=== PATIENT | male | born 1935 | race Caucasian/White ===

== ENCOUNTER 2018-09-24 17:15 | Inpatient (IN) | payer OTHER ==
--- NOTE | 2018-09-24 18:57 | RAD ---
HISTORY: SOB, cough COMPARISON: None available TECHNIQUE: Chest, one view. FINDINGS: LUNGS: Consolidation consistent with pneumonia involving the right middle and lower lobes. Patchy infiltrate left lung base. Hyperinflation may be seen in the setting of COPD. Increased lucencies especially within the bilateral upper lung ross compatible with underlying emphysema. PLEURA: No significant pleural effusion identified. No definite pneumothorax . CARDIOVASCULAR: Cardiomegaly. Dense atherosclerotic calcifications. OSSEOUS STRUCTURES: Degenerative changes. VISUALIZED UPPER ABDOMEN: Elevation of the right hemidiaphragm. OTHER FINDINGS: None. IMPRESSION: Consolidation consistent with pneumonia involving the right middle and lower lobes. Patchy infiltrate left lung base. COPD/emphysema. Elevation of the right hemidiaphragm.
[2018-09-24 18:59] LABS: BASO % 0.3 % (0.0-2.0); EOS % 0.2 % (0.0-4.0); LYMPH # 0.7 K/uL (1.0-4.3); LYMPH % 7.6 % (20.0-40.0); MEAN CELL VOLUME 86.3 fL (80.0-94.0); MEAN CORPUSCULAR HEMOGLOBIN 27.4 pg (27.0-31.0); MEAN CORPUSCULAR HGB CONC 31.7 g/dL (33.0-37.0); MEAN PLATELET VOLUME 7.4 fL (7.2-11.7); MONO # 0.9 K/uL (0.0-0.8); MONO % 9.9 % (0.0-10.0); NEUT # 7.2 K/uL (1.8-7.0); PLATELET COUNT 248 K/uL (130-400); RBC 4.76 Mil/uL (4.40-5.90); RED CELL DISTRIBUTION WIDTH 19.4 % (11.5-14.5); WHITE BLOOD COUNT 8.8 K/uL (4.8-10.8)
[2018-09-24 19:06] LABS: INR 0.9
[2018-09-24 19:11] LABS: ALB/GLOB RATIO 0.9 (1.0-2.1); ALBUMIN 3.4 g/dL (3.5-5.0); ALT/SGPT 16 U/L (21-72); AST/SGOT 24 U/L (17-59); BLOOD UREA NITROGEN 31 mg/dL (9-20); CALCIUM 8.9 mg/dl (8.6-10.4); GFR NON-AFRICAN AMERICAN > 60
[2018-09-24 19:36] LABS: B-TYPE NATRIURETIC PEPTIDE 675 pg/mL (0-900); CK-MB 1.46 ng/mL (0.0-3.38)
[2018-09-24] MEDS ORDERED: Sodium Chloride 0.9% 500 ML IV ONE (19:42)
--- NOTE | 2018-09-24 20:03 | C.PDOC ---
History Of Present Illness 83 y/o male brought to ER by ambulance for evaluation of generalized weakness. History is as per neighbor and EMS - patient was found to be weak and having difficulty ambulating near [facility]. Bystanders called for the ambulance and he was brought to [facility] ER. As per neighbor, patient is complaining of generalized weakness/difficulty ambulating which has been present for the past 3 days. Patient typically walks with a cane, but he currently has been using a walker. Patient also states he has decreased PO intake, and thinks he may be dehydrated. Patient denies chest pain, SOB, facial droop, slurred speech, visual changes, nausea, vomiting, abdominal pain, dizziness. Time Seen by Provider: 09/24/18 17:22 Chief Complaint (Nursing): Weakness/Neurological Deficit History Per: Patient, Family (neighbor) History/Exam Limitations: no limitations Onset/Duration Of Symptoms: Days Current Symptoms Are (Timing): Still Present Past Medical History Reviewed: Historical Data, Nursing Documentation, Vital Signs Vital Signs: Last Vital Signs Temp 99 F 09/24/18 17:18 Pulse 79 09/24/18 17:18 Resp 21 09/24/18 17:18 BP 132/59 L 09/24/18 17:18 Pulse Ox 93 L 09/24/18 17:18 - Medical History PMH: No Chronic Diseases Surgical History: Cholecystectomy Family History: States: No Known Family Hx - Social History Hx Alcohol Use: No Hx Substance Use: No - Immunization History Hx Tetanus Toxoid Vaccination: No Hx Influenza Vaccination: No Hx Pneumococcal Vaccination: No Review Of Systems Except As Marked, All Systems Reviewed And Found Negative. Constitutional: Positive for: Weakness. Negative for: Fever, Chills Cardiovascular: Negative for: Chest Pain Respiratory: Negative for: Shortness of Breath Gastrointestinal: Negative for: Nausea, Vomiting, Abdominal Pain Physical Exam - Physical Exam Appears: Chronically Ill, Other (unkempt) Skin: Normal Color, Warm, Dry Head: Atraumatic, Normacephalic Eye(s): bilateral: Normal Inspection Nose: Normal Oral Mucosa: Dry Neck: Supple Chest: Symmetrical Cardiovascular: Rhythm Regular, Murmur (3/6 systolic murmur) Respiratory: Normal Breath Sounds, No Rales, No Rhonchi, No Wheezing Gastrointestinal/Abdominal: Soft, No Tenderness, No Guarding, No Rebound Extremity: Normal ROM Neurological/Psych: Oriented x3, Normal Speech, Normal Cranial Nerves, Normal Motor, Normal Sensation ED Course And Treatment - Laboratory Results Result Diagrams: 09/30/18 07:25 09/30/18 07:25 ECG: Interpreted By Me, Viewed By Me ECG Rhythm: Sinus Rhythm ECG Interpretation: Abnormal Interpretation Of ECG: NSR with normal axis, mild ST depression in Leads II, III, and AVF, and no ST elevations Rate From EC (bpm) O2 Sat by Pulse Oximetry: 93 Pulse Ox Interpretation: Abnormal - CT Scan/US CT-Head Other Rad Studies (CT/US): Read By Radiologist, Radiology Report Reviewed CT/US Interpretation: EXAM: CT Head without Intravenous Contrast. CLINICAL H ISTORY: DIFFICULTY WALKING. TECHNIQUE: Axial computed tomography images of the head/brain without intravenous contrast. 0.00 mGy-cm. COMPARISON: None provided. FINDINGS: BRAIN. There is mild brain atrophy. There is grade ventricular white matter ischemic change. Areas of low-density infarction are seen at the left frontal region, superior left parietal region, and left parieto-occipital region and these are likely chronic in nature. There is some compensatory dilatation of the ventricular system. There is no acute hemorrhage. VENTRICLES: No hydrocephalus. ORBITS: The orbits are unremarkable. SINUSES AND MASTOIDS: The paranasal sinuses and mastoid air cells are clear. BONES: No fracture. SOFT TISSUES: Unremarkable. IMPRESSION: Periventricular white matter ischemic changes. Areas of infarction suspected at the left frontal region, deep and superior left parietal region and left parieto-occipital region. Clinical correlation advised. Progress Note: Blood work, EKG, CT head, CXR ordered and reviewed. Patient given IV NS bolus, PO ASA. CT head shows left sided infarct - symptoms present for 3 days. PO tylenol given. Patient's neighbor Frandy called and results explained, he will translate for patient's and inform her of CVA. - Physician Consult Information Physician Contacted: Brian Norris Outcome Of Conversation: Discussed patient with PMD, he agrees with admission for left sided CVA, abnormal EKG, elevated troponin, ataxia. NIHSS Stroke Scale 2 - Date/Time Evaluation Performed Date Performed: 09/24/18 Time Performed: 17:20 When Was NIHSS Performed: Baseline - How Severe is the Stroke Level of Consciousness: 0=Alert LOC to Questions: 0=Both comments correct LOC to commands: 0=Obeys both correctly Best Gaze: 0=Normal Visual: 0=No visual loss Facial: 0=Normal Motor Arm - Left: 0=No drift Motor Arm - Right: 0=No drift Motor Leg - Left: 0=No drift Motor Leg - Right: 0=No drift Limb Ataxia: 1=Present Upper or Lower Sensory: 0=Normal Best Language: 0=No aphasia Dysarthia: 0=Normal articulation Extinction & Inattention (Neglect): 0=Normal, no object Score: 1 rTPA Inclusion/Exclusion - Refusal of Treatment Patient Refused Treatment: No - Inclusion Criteria for Altepase Patient is 18 years or Older: Yes The Clinical Diagnosis of Ischemic Stroke That is Causing a Potentially Disabling Neurological Deficit: Yes Time of Onset is Well Established to be Less Than 270 Minute Before Treatment Would Begin: No Risk/Benefit Discussed With Patient/Family Member Present: No Disposition - Disposition Disposition: HOSPITALIZED Disposition Time: 21:13 Condition: FAIR - Clinical Impression Clinical Impression: Elevated troponin, CVA (cerebral vascular accident), Abnormal EKG, Ataxia - Scribe Statement The provider has reviewed the documentation as recorded by the Sahil Simmons Provider Attestation: All medical record entries made by the Darvine were at my direction and personally dictated by me. I have reviewed the chart and agree that the record accurately reflects my personal performance of the history, physical exam, medical decision making, and the department course for this patient. I have also personally directed, reviewed, and agree with the discharge instructions and disposition. Decision To Admit - Pt Status Changed To: Hospital Disposition Of: Inpatient - Admit Certification Admit to Inpatient:: After my assessment, the patient will require hospitalization for at least two midnights. This is because of the severity of symptoms shown, intensity of services needed, and/or the medical risk in this patient being treated as an outpatient. - InPatient: Physician Admission Certification: I certify that this patient requires 2 or more midnights of care for the following reason:: see notes - . Bed Request Type: Telemetry Admitting Physician: Brian Norris Patient Diagnosis: Elevated troponin, Abnormal EKG, CVA (cerebral vascular accident), Ataxia
--- NOTE | 2018-09-24 20:04 | C.PDOC ---
Time Seen by Provider: 09/24/18 17:22 Chief Complaint (Nursing): Weakness/Neurological Deficit Past Medical History Vital Signs: Last Vital Signs Temp 99 F 09/24/18 17:18 Pulse 79 09/24/18 17:18 Resp 21 09/24/18 17:18 BP 132/59 L 09/24/18 17:18 Pulse Ox 93 L 09/24/18 17:18 Surgical History: Cholecystectomy - Social History Hx Alcohol Use: No Hx Substance Use: No - Immunization History Hx Tetanus Toxoid Vaccination: No Hx Influenza Vaccination: No Hx Pneumococcal Vaccination: No ED Course And Treatment - Laboratory Results Result Diagrams: 09/24/18 18:55 09/24/18 18:55 O2 Sat by Pulse Oximetry: 93 Disposition - Disposition
[2018-09-24 21:19] LABS: ANISOCYTOSIS SLIGHT; LYMPHOCYTE 10 % (20-40); MONOCYTE 9 % (0-10); NEUTROPHIL 81 % (50-75); PLATELET ESTIMATE NORMAL (NORMAL); TOTAL CELLS COUNTED 100
[2018-09-24 21:20] LABS: POIKILOCYTOSIS SLIGHT
--- NOTE | 2018-09-25 08:43 | CT ---
Date of service: 09/24/2018 PROCEDURE: CT HEAD WITHOUT CONTRAST. HISTORY: DIFFICULTY WALKING COMPARISON: None available. TECHNIQUE: Axial computed tomography images were obtained through the head/brain without intravenous contrast. Radiation dose: Total exam DLP = 1007.05 mGy-cm. This CT exam was performed using one or more of the following dose reduction techniques: Automated exposure control, adjustment of the mA and/or kV according to patient size, and/or use of iterative reconstruction technique. FINDINGS: HEMORRHAGE: No intracranial hemorrhage. BRAIN: No mass effect or edema. Mild diffuse age-appropriate cerebral atrophy. Multifocal encephalomalacia involving left frontal, left occipital parietal and high left frontal lobes, likely old infarcts. Solitary coarse nodular cortical calcifications seen in the right frontal lobe. Nonspecific. No evidence of acute infarct. Moderate periventricular white matter lucency consistent with chronic microvascular ischemic change. VENTRICLES: Unremarkable. No hydrocephalus. CALVARIUM: Unremarkable. PARANASAL SINUSES: Unremarkable as visualized. No significant inflammatory changes. MASTOID AIR CELLS: Unremarkable as visualized. No inflammatory changes. OTHER FINDINGS: None. 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 No evidence of acute infarct. No intracranial mass or hemorrhage. Age-appropriate atrophy and chronic white matter ischemic change. The preliminary findings for this examination were reported by [facility] at 7:55 p.m. on 09/24/2018. There is concurrence of this report with the preliminary findings.
--- NOTE | 2018-09-25 09:50 | CP.PCM.HP ---
<Alirio Dunbar - Last Filed: 09/25/18 09:47> History of Present Illness - History of Present Illness History of Present Illness: CC: found by police wandering outside Dialysis Clinical Manager: Mariana This patient is an 83yo telugu speaking patient, extremely poor historian, BIBA at 7pm as he was wandering outside of the police station in [place]. He states that he is in "optimal health" and takes absolutely no medicines. His pharmacy is listed as [facility] pharmacy [phone]. the patient is ANOx1 only knowing his name and ; he knows he is in [place] but does not know the name of the hospital, year, or his address or how he got to the hospital. He is currently denying all symptoms at time of exam. PMhx: bradycardia, dementia (recently diagnosed) glaucoma, [place] [facility] [place]; tx and sent to Meds: unknown, will call pharmacy once opens [phone] as per son/detention worker [phone] Donepezil (started recently) Finasteride (for BPH) FamHx: denies Allergies: Denies; has had MRI before at [facility] [place] Surgeries: Denies; however speaking to son had gallbladder removal, hernia repair, stomach reduction Social: Denies smoking/Etoh (however poor historian), although listed as former smoker in triage, states he is ambulatory on own without cane or assistance; speaking to son states he has been much more confused recently, notable to take care of self alone and refuses a lot of care Present on Admission - Present on Admission Any Indicators Present on Admission: Yes History of DVT/PE: No History of Uncontrolled Diabetes: No Urinary Catheter: No Decubitus Ulcer Present: No Past Patient History - Past Medical History & Family History Past Medical History?: No - Past Social History Smoking Status: Unknown If Ever Smoked - CARDIAC Other/Comment: High Triglyceride - MUSCULOSKELETAL/RHEUMATOLOGICAL Hx Falls: Yes - GENITOURINARY/GYNECOLOGICAL Hx Prostate Problems: Yes - PSYCHIATRIC Hx Substance Use: No - SURGICAL HISTORY Hx Cholecystectomy: Yes - ANESTHESIA Hx Anesthesia: Yes Hx Anesthesia Reactions: No Meds Allergies/Adverse Reactions: Allergies Allergy/AdvReac Type Severity Reaction Status Date / Time No Known Allergies Allergy Verified 09/24/18 18:23 Physical Exam - Constitutional Appears: Non-toxic, Cachectic, Chronically Ill - Head Exam Head Exam: ATRAUMATIC - Eye Exam Eye Exam: EOMI, PERRL (patient does not withdraw on confrontatation ) Pupil Exam: absent: PERRL (b/l cataract repair ) - ENT Exam ENT Exam: Mucous Membranes Dry - Neck Exam Neck exam: Positive for: Full Rom. Negative for: Lymphadenopathy, Thyromegaly - Respiratory Exam Respiratory Exam: Clear to Auscultation Bilateral, NORMAL BREATHING PATTERN. absent: Rales, Rhonchi, Wheezes - Cardiovascular Exam Cardiovascular Exam: REGULAR RHYTHM, +S1, +S2 (systolic murmur 4/6 heard in all listening areas loudest at pulmonic area ), Systolic Murmur - GI/Abdominal Exam GI & Abdominal Exam: Normal Bowel Sounds, Soft. absent: Tenderness - Extremities Exam Extremities exam: Positive for: full ROM. Negative for: calf tenderness, pedal edema - Back Exam Back exam: NORMAL INSPECTION (ANOx1; only to person). absent: CVA tenderness (L), CVA tenderness (R) - Neurological Exam Neurological exam: CN II-XII Intact - Psychiatric Exam Additional comments: unable to gauge - Skin Skin Exam: Dry, Warm Results - Vital Signs Recent Vital Signs: Last Vital Signs Temp 97.7 F 09/25/18 08:18 Pulse 52 L 09/25/18 08:18 Resp 18 09/25/18 08:18 BP 115/63 09/25/18 08:18 Pulse Ox 100 09/25/18 08:18 - Labs Result Diagrams: 09/24/18 18:55 09/24/18 18:55 Labs: Laboratory Results - last 24 hr 09/24/18 09/24/18 09/24/18 17:29 18:55 18:55 WBC 8.8 RBC 4.76 Hgb 13.0 Hct 41.1 MCV 86.3 MCH 27.4 MCHC 31.7 L RDW 19.4 H Plt Count 248 MPV 7.4 Neut % (Auto) 82.0 H Lymph % (Auto) 7.6 L [place] % (Auto) 9.9 Eos % (Auto) 0.2 Baso % (Auto) 0.3 Neut # (Auto) 7.2 H Lymph # (Auto) 0.7 L [place] # (Auto) 0.9 H Eos # (Auto) 0.0 Baso # (Auto) 0.0 Neutrophils % (Manual) 81 H Lymphocytes % (Manual) 10 L Monocytes % (Manual) 9 Platelet Estimate Normal Poikilocytosis (manual Slight Anisocytosis (manual) Slight PT 10.0 INR 0.9 APTT 28 Sodium Potassium Chloride Carbon Dioxide Anion Gap BUN Creatinine Est GFR ( Amer) Est GFR (Non-Af Amer) POC Glucose (mg/dL) 144 H Random Glucose Calcium Total Bilirubin AST ALT Alkaline Phosphatase Total Creatine Kinase CK-MB (Mass) Troponin I NT-Pro-B Natriuret Pep Total Protein Albumin Globulin Albumin/Globulin Ratio 09/24/18 18:55 WBC RBC Hgb Hct MCV MCH MCHC RDW Plt Count MPV Neut % (Auto) Lymph % (Auto) [place] % (Auto) Eos % (Auto) Baso % (Auto) Neut # (Auto) Lymph # (Auto) [place] # (Auto) Eos # (Auto) Baso # (Auto) Neutrophils % (Manual) Lymphocytes % (Manual) Monocytes % (Manual) Platelet Estimate Poikilocytosis (manual Anisocytosis (manual) PT INR APTT Sodium 140 Potassium 3.9 Chloride 101 Carbon Dioxide 29 Anion Gap 13 BUN 31 H Creatinine 1.0 Est GFR ( Amer) > 60 Est GFR (Non-Af Amer) > 60 POC Glucose (mg/dL) Random Glucose 86 Calcium 8.9 Total Bilirubin 1.0 AST 24 ALT 16 L Alkaline Phosphatase 107 Total Creatine Kinase 31 L CK-MB (Mass) 1.46 Troponin I 0.1230 H* NT-Pro-B Natriuret Pep 675 Total Protein 7.0 Albumin 3.4 L Globulin 3.6 Albumin/Globulin Ratio 0.9 L Assessment & Plan - Assessment and Plan (Free Text) Assessment: 83yo M admitted for AMS Encephalopathy; unknown origin stroke vs infection vs metabolic -head CT showed multiple old infarcts; no acute infarct seen; please refer to full report -f/u MRI 09/25 -Neurology; Dr. Manrique; thank you for your help -neuro checks -[facility] 1 on admission; -f/u TSH, blood cultures, procal, UA/Cul, hemoglobin a1c (patient was recently treated for bacteremia) [place] [facility] [place]neuro checks q4h -head of bed elevated -aspiration precautions -f/u swallow eval formal -therapeutic lovenox 40mg SC BID NSTEMI -nonspecific t-wave abnormality -murmur on exam; f/u echo -f/u bnp; no signs of clinical overload -elevated troponin; f/u repeat now and at 2pm -Dr. Lynch; cardiology; thank you for your help Hx of Dementia -donepizil 5mg daily -refused prior MRI and neuroworkup that was within 3mo Hx of BPH -c/w finasteride Hx of bacteremia; [place] [facility] [place] -Vanc 1g Q24h prophylactically -Zosyn 3.375 Q6H proph -f/u blood culture -WBC elevated; no other symptoms -UA Hyperglycemia -f/u hemoglobin a1c Proph -Lovenox therapeutic 40mg SC BID -GI prophylaxis not indicated as is eating -hx of falls; fall precautions -PT/OT eval discussed and seen with Dr. Jennifer Dunbar PGY3 Decision To Admit - Pt Status Changed To: Hospital Disposition Of: Inpatient - Admit Certification Admit to Inpatient:: After my assessment, the patient will require hospitalization for at least two midnights. This is because of the severity of symptoms shown, intensity of services needed, and/or the medical risk in this patient being treated as an outpatient. - InPatient: Physician Admission Certification:: patient will need more than 2 midnights - . Bed Request Type: Telemetry Admitting Physician: Renetta Rodriguez NIHSS Scale ([place]) Time Performed: 10:03 - How Severe is the Stoke Baseline Level of Consciousness: 0=Alert LOC to Questions: 0=Both comments correct LOC to commands: 0=Obeys both correctly Best Gaze: 0=Normal Visual: 1=Partial hemianopia (patient also has glaucoma with vision loss at baseline) Facial: 0=Normal Motor Arm - Left: 0=No drift Motor Arm - Right: 0=No drift Motor Leg - Left: 0=No drift Motor Leg - Right: 0=No drift Limb Ataxia: 0=Absent Sensory: 0=Normal Best Language: 0=No aphasia Dysarthia: 0=Normal articulation Extinction & Inattention (Neglect): 0=Normal, no object Score: 1 Risk Level: Minor Stroke Risk <Renetta Rodriguez V - Last Filed: 09/25/18 22:49> Results - Vital Signs Recent Vital Signs: Last Vital Signs Temp 97.7 F 09/25/18 08:18 Pulse 79 12/22/18 16:48 Resp 18 09/25/18 08:18 BP 115/63 09/25/18 08:18 Pulse Ox 100 09/25/18 08:18 - Labs Result Diagrams: 09/25/18 10:21 09/25/18 09:52 Labs: Laboratory Results - last 24 hr 09/24/18 09/24/18 09/24/18 18:55 18:55 18:55 WBC 8.8 RBC 4.76 Hgb 13.0 Hct 41.1 MCV 86.3 MCH 27.4 MCHC 31.7 L RDW 19.4 H Plt Count 248 MPV 7.4 Neut % (Auto) 82.0 H Lymph % (Auto) 7.6 L [place] % (Auto) 9.9 Eos % (Auto) 0.2 Baso % (Auto) 0.3 Neut # (Auto) 7.2 H Lymph # (Auto) 0.7 L [place] # (Auto) 0.9 H Eos # (Auto) 0.0 Baso # (Auto) 0.0 Neutrophils % (Manual) 81 H Lymphocytes % (Manual) 10 L Monocytes % (Manual) 9 Platelet Estimate Normal Poikilocytosis (manual Slight Anisocytosis (manual) Slight PT 10.0 INR 0.9 APTT 28 Sodium 140 Potassium 3.9 Chloride 101 Carbon Dioxide 29 Anion Gap 13 BUN 31 H Creatinine 1.0 Est GFR ( Amer) > 60 Est GFR (Non-Af Amer) > 60 Random Glucose 86 Calcium 8.9 Phosphorus Magnesium Total Bilirubin 1.0 AST 24 ALT 16 L Alkaline Phosphatase 107 Total Creatine Kinase 31 L CK-MB (Mass) 1.46 Troponin I 0.1230 H* NT-Pro-B Natriuret Pep 675 Total Protein 7.0 Albumin 3.4 L Globulin 3.6 Albumin/Globulin Ratio 0.9 L Triglycerides Cholesterol LDL Cholesterol Direct HDL Cholesterol Procalcitonin 09/25/18 09/25/18 09/25/18 09:52 10:21 10:21 WBC 6.7 RBC 4.28 L Hgb 11.9 L Hct 36.9 MCV 86.3 MCH 27.8 MCHC 32.2 L RDW 18.7 H Plt Count 219 MPV 7.7 Neut % (Auto) 76.0 H Lymph % (Auto) 12.6 L [place] % (Auto) 8.9 Eos % (Auto) 1.9 Baso % (Auto) 0.6 Neut # (Auto) 5.1 Lymph # (Auto) 0.8 L [place] # (Auto) 0.6 Eos # (Auto) 0.1 Baso # (Auto) 0.0 Neutrophils % (Manual) Lymphocytes % (Manual) Monocytes % (Manual) Platelet Estimate Poikilocytosis (manual Anisocytosis (manual) PT INR APTT Sodium 138 Potassium 3.8 Chloride 104 Carbon Dioxide 30 Anion Gap 9 L BUN 31 H Creatinine 1.0 Est GFR ( Amer) > 60 Est GFR (Non-Af Amer) > 60 Random Glucose 91 Calcium 8.7 Phosphorus 3.4 Magnesium 2.0 Total Bilirubin 0.8 AST 32 ALT 19 L Alkaline Phosphatase 99 Total Creatine Kinase < 20 L CK-MB (Mass) 0.94 Troponin I 0.1230 H* NT-Pro-B Natriuret Pep 503 Total Protein 6.7 Albumin 3.2 L Globulin 3.5 Albumin/Globulin Ratio 0.9 L Triglycerides 89 Cholesterol 168 LDL Cholesterol Direct 102 HDL Cholesterol 46 Procalcitonin 0.29 09/25/18 15:06 WBC RBC Hgb Hct MCV MCH MCHC RDW Plt Count MPV Neut % (Auto) Lymph % (Auto) [place] % (Auto) Eos % (Auto) Baso % (Auto) Neut # (Auto) Lymph # (Auto) [place] # (Auto) Eos # (Auto) Baso # (Auto) Neutrophils % (Manual) Lymphocytes % (Manual) Monocytes % (Manual) Platelet Estimate Poikilocytosis (manual Anisocytosis (manual) PT INR APTT Sodium Potassium Chloride Carbon Dioxide Anion Gap BUN Creatinine Est GFR ( Amer) Est GFR (Non-Af Amer) Random Glucose Calcium Phosphorus Magnesium Total Bilirubin AST ALT Alkaline Phosphatase Total Creatine Kinase < 20 L CK-MB (Mass) 0.97 Troponin I 0.0940 NT-Pro-B Natriuret Pep Total Protein Albumin Globulin Albumin/Globulin Ratio Triglycerides Cholesterol LDL Cholesterol Direct HDL Cholesterol Procalcitonin Attending/Attestation - Attestation I have personally seen and examined this patient.: Yes I have fully participated in the care of the patient.: Yes I have reviewed all pertinent clinical information: Yes Notes (Text): Hospitalist Service Covering Dr. Norris's service Patient admitted overnight to Dr. Norris's service. Patient admitted for suspicion for new stroke with NIHSS1, neurology consulted, in ED Aspirin 325mg PO X1 and 1 Liter of NS bolus. Patient seen this morning with the resident, telugu translation provided by Bri Supervisor Cytology. Patient is a poor historian, reports he is in good health. Further history provided by his son who is his caregiver, Patient recently [place] [facility] [place] for bacte[place], completed rehab recently. Patient sees a cardiology, Dr. Bucio but unclear why. I have attempted to call his office but it is not closed today. Review CT head, noted for multiple old infarcts and multifocal encephalmaclia. Reviewed Chest xray, noted pneumonia over the right lower lobe. Cardiology (Dr. lynch) is not call, confirmed with Dr. Lujan in updated scheduled; discussed case with Dr. Lujan, Dr. Benz is covering Dr. Lujan who is away this weekend. Patient has a history of dementia, takes donezpil as outpatient, refused neuro workup in the past for dementia. Assessment/Plan 1) Encephalopathy; unknown origin stroke vs infection vs metabolic Assessment/Plan * Neurology (Dr. Manrique) unified communications engineer-->help appreciated * CT head (09/25/18): showed multiple old infarcts; no acute infarct seen; please refer to full report * embolic etiology? * Brain MRI w/o contrast ordered * Echo with bubble ordered; patient does have a murmur on exam * Neuro checks Q4H * NIHHS 1 on admission * Aspiration precautions * Confirmed with nurse, patient has passed bedside swallow eval in the ED * Rule out infectious disease etiology, * Given recent bacteremia, f/u blood cultures, procalcition, noted left shift on CBC, and pneumonia on chest xray 2) NSTEMI vs Elevated troponin Assessment/Plan * Cardiology (Dr. Lujan) unified communications engineer-->help appreciated * Dr. Benz covering this week * nonspecific t-wave abnormality; no prior EKG available * murmur on exam; f/u ech * f/u bnp; no signs of clinical overload * Elevated troponin; f/u repeat now and at 2pm * Patient started on lovenox 1mg/kg subq12 * Check cardiac risk factors: lipid panel, hgba1c, probnp 3) Hx of Dementia Assessment/Plan * Donepizil 5mg daily 4) Hx of BPH Assessment/Plan * c/w finasteride 5mg PO daily 5) Prior Hx of bacteremia; treated [place] [facility] [place] Pneumonia Assessment/Plan * monitor for fever * Blood cultures (09/24/18): * Start Zosyn 3.375 IV q6H * Start Vancomycin 6) Hyperglycemia Assessment/Plan * check a1c 7) History of Falls Assessment/Plan * Activity: Falls * PT/OT eval 8) Prophylactic measure * Lovenox therapeutic 40mg SC BID * GI prophylaxis not indicated as is eating * hx of falls; fall precautions * PT/OT eval
[2018-09-25] MEDS ORDERED: Enoxaparin 40 mg Syringe SC SCH (10:15)
[2018-09-25 10:18] LABS: HDL CHOLESTEROL 46 mg/dL (30-70)
[2018-09-25 10:28] LABS: LDL CHOLESTEROL 102 mg/dL (0-129)
[2018-09-25 10:29] LABS: BASO % 0.6 % (0.0-2.0); EOS # 0.1 K/uL (0.0-0.7); EOS % 1.9 % (0.0-4.0); HEMOGLOBIN 11.9 g/dL (12.0-18.0); LYMPH # 0.8 K/uL (1.0-4.3); LYMPH % 12.6 % (20.0-40.0); MEAN CELL VOLUME 86.3 fL (80.0-94.0); MEAN CORPUSCULAR HEMOGLOBIN 27.8 pg (27.0-31.0); MEAN CORPUSCULAR HGB CONC 32.2 g/dL (33.0-37.0); MEAN PLATELET VOLUME 7.7 fL (7.2-11.7); MONO # 0.6 K/uL (0.0-0.8); MONO % 8.9 % (0.0-10.0); NEUT # 5.1 K/uL (1.8-7.0); NRBC % 0.1 % (0.0-2.0); RBC 4.28 Mil/uL (4.40-5.90); RED CELL DISTRIBUTION WIDTH 18.7 % (11.5-14.5); WHITE BLOOD COUNT 6.7 K/uL (4.8-10.8)
[2018-09-25 10:39] LABS: ALB/GLOB RATIO 0.9 (1.0-2.1); ALBUMIN 3.2 g/dL (3.5-5.0); ALT/SGPT 19 U/L (21-72); AST/SGOT 32 U/L (17-59); BLOOD UREA NITROGEN 31 mg/dL (9-20); CALCIUM 8.7 mg/dl (8.6-10.4); GFR NON-AFRICAN AMERICAN > 60
[2018-09-25 10:41] LABS: B-TYPE NATRIURETIC PEPTIDE 503 pg/mL (0-900)
[2018-09-25] MEDS: Saccharomyces Boulardi 250 mg Cap PO SCH ×2 (11:04→17:24)
[2018-09-25] MEDS: Piperacill/Tazo 3.375gm in Dex 3.375 GM/50 ML BAG IVPB SCH ×2 (11:18→17:23)
[2018-09-25] MEDS: Sodium Chloride 0.9% 1,000 ML IV SCH (11:19)
[2018-09-25 11:29] LABS: CK-MB 0.94 ng/mL (0.0-3.38)
[2018-09-25] MEDS: Vancomycin 1 gm/NS 200 ml 1 GM/200 ML BAG IVPB SCH (12:35)
--- NOTE | 2018-09-25 14:35 | MRI ---
Date of service: 09/25/2018 PROCEDURE: MRI BRAIN WITHOUT CONTRAST HISTORY: TIA/stroke COMPARISON: Comparison made with prior CT scan of the brain dated 09/24/2018. TECHNIQUE: Multiplanar, multisequence MR images of the brain were obtained without intravenous contrast enhancement. FINDINGS: HEMORRHAGE: No acute parenchymal, subarachnoid or extra-axial hemorrhage. No evidence of hemosiderin deposition is identified on gradient echo weighted sequence. DWI: There are 2 tiny focal areas of mild restricted diffusion, both of which are located in the posterior temporoparietal cortices left slightly larger and the slightly more anterior in location on the right side. Note that the both of these foci are adjacent to, abutting areas of larger chronic infarcts left larger than right... Both of these foci could represent small acute/subacute areas of reversible ischemia (TIAs) or tiny acute-subacute infarcts. Note that a small components of shine through artifact cannot be excluded. No additional focal areas of abnormal restricted diffusion identified. BRAIN PARENCHYMA: There are also confluent chronic white matter ischemic changes with more discrete bifrontal infarcts left larger than right.. There are also chronic bilateral cerebellar infarcts. Moderate to significant atrophy. VENTRICLES: No obstructive hydrocephalus. CRANIUM: Calvarium appears grossly ORBITS: Changes of bilateral cataract surgery again noted. PARANASAL SINUSES/MASTOIDS: Clear VASCULAR SYSTEM: Visualized major vascular flow voids at skull base patent.. OTHER FINDINGS: None. IMPRESSION: There are 2 tiny focal areas of mild restricted diffusion, both of which are located in the posterior temporoparietal cortices left slightly larger and the slightly more anterior in location on the right side. Note that the both of these foci are adjacent to, abutting areas of larger chronic infarcts left larger than right... Both of these foci could represent small acute/subacute areas of reversible ischemia (TIAs) or tiny acute/subacute infarcts. Note that a small components of shine through artifact cannot be excluded. No additional focal areas of abnormal restricted diffusion identified. Chronic confluent white matter ischemic changes with more discrete bifrontal infarcts left larger than right. There also chronic bilateral cerebellar infarcts.
[2018-09-25 15:38] LABS: CK-MB 0.97 ng/mL (0.0-3.38)
--- NOTE | 2018-09-25 16:39 | CP.PCM.CON ---
History of Present Illness - History of Present Illness History of Present Illness: 83 y/o male brought to ER by ambulance for evaluation of generalized weakness. History is as per neighbor and EMS - patient was found to be weak and having difficulty ambulating near [facility]. Bystanders called for the ambulance and he was brought to [facility] ER. As per neighbor, patient is complaining of generalized weakness/difficulty ambulating which has been present for the past 3 days. Patient typically walks with a cane, but he currently has been using a walker. Patient also states he has decreased PO intake, and thinks he may be dehydrated. Patient denies chest pain, SOB, facial droop, slurred speech, visual changes, nausea, vomiting, abdominal pain, dizziness. At the time of examination having lunch, denies any chest pain. Time Seen by Provider: 09/24/18 17:22 Past Patient History - Past Medical History & Family History Past Medical History?: No - Past Social History Smoking Status: Unknown If Ever Smoked - CARDIAC Other/Comment: High Triglyceride - MUSCULOSKELETAL/RHEUMATOLOGICAL Hx Falls: Yes - GENITOURINARY/GYNECOLOGICAL Hx Prostate Problems: Yes - PSYCHIATRIC Hx Substance Use: No - SURGICAL HISTORY Hx Cholecystectomy: Yes - ANESTHESIA Hx Anesthesia: Yes Hx Anesthesia Reactions: No Meds Allergies/Adverse Reactions: Allergies Allergy/AdvReac Type Severity Reaction Status Date / Time No Known Allergies Allergy Verified 09/24/18 18:23 - Medications Medications: Current Medications Aspirin (Aspirin Chewable) 81 mg PO DAILY [facility] Last Admin: 09/25/18 11:04 Dose: 81 mg Clopidogrel Bisulfate (Plavix) 75 mg PO DAILY [facility] Donepezil HCl (Aricept) 5 mg PO HS [facility] Enoxaparin Sodium (Lovenox) 40 mg SC Q12 [facility] Finasteride (Proscar) 5 mg PO DAILY [facility] Last Admin: 09/25/18 11:04 Dose: 5 mg Sodium Chloride (Sodium Chloride 0.9%) 1,000 mls @ 75 mls/hr IV .[id number] [facility] Last Admin: 09/25/18 11:19 Dose: 75 mls/hr Piperacillin Sod/Tazobactam Sod (Zosyn 3.375 Gm Iv Premix) 3.375 gm in 50 mls @ 200 mls/hr IVPB Q8H [facility]; Protocol Last Admin: 09/25/18 11:18 Dose: 200 mls/hr Vancomycin/Sodium Chloride (Vancomycin 1 Gm/Ns 200 Ml) 1 gm in 200 mls @ 167 mls/hr IVPB DAILY [facility]; Protocol Stop: 09/30/18 10:01 Last Admin: 09/25/18 12:35 Dose: 167 mls/hr Nicotine (Nicoderm Cq) 1 patch TD DAILY [facility] Last Admin: 09/25/18 11:03 Dose: 1 patch Saccharomyces Boulardii (Florastor) 250 mg PO BID [facility] Last Admin: 09/25/18 11:04 Dose: 250 mg Physical Exam - Head Exam Head Exam: NORMOCEPHALIC - Neck Exam Neck exam: Positive for: Normal Inspection - Respiratory Exam Respiratory Exam: NORMAL BREATHING PATTERN - Cardiovascular Exam Cardiovascular Exam: REGULAR RHYTHM, Systolic Murmur - Extremities Exam Extremities exam: Positive for: normal inspection Results - Vital Signs Recent Vital Signs: Last Vital Signs Temp 97.7 F 09/25/18 08:18 Pulse 52 L 09/25/18 08:18 Resp 18 09/25/18 08:18 BP 115/63 09/25/18 08:18 Pulse Ox 100 09/25/18 08:18 - Labs Result Diagrams: 09/26/18 08:09 09/26/18 08:09 Labs: Laboratory Results - last 24 hr 09/24/18 09/24/18 09/24/18 17:29 18:55 18:55 WBC 8.8 RBC 4.76 Hgb 13.0 Hct 41.1 MCV 86.3 MCH 27.4 MCHC 31.7 L RDW 19.4 H Plt Count 248 MPV 7.4 Neut % (Auto) 82.0 H Lymph % (Auto) 7.6 L [place] % (Auto) 9.9 Eos % (Auto) 0.2 Baso % (Auto) 0.3 Neut # (Auto) 7.2 H Lymph # (Auto) 0.7 L [place] # (Auto) 0.9 H Eos # (Auto) 0.0 Baso # (Auto) 0.0 Neutrophils % (Manual) 81 H Lymphocytes % (Manual) 10 L Monocytes % (Manual) 9 Platelet Estimate Normal Poikilocytosis (manual Slight Anisocytosis (manual) Slight PT 10.0 INR 0.9 APTT 28 Sodium Potassium Chloride Carbon Dioxide Anion Gap BUN Creatinine Est GFR ( Amer) Est GFR (Non-Af Amer) POC Glucose (mg/dL) 144 H Random Glucose Calcium Phosphorus Magnesium Total Bilirubin AST ALT Alkaline Phosphatase Total Creatine Kinase CK-MB (Mass) Troponin I NT-Pro-B Natriuret Pep Total Protein Albumin Globulin Albumin/Globulin Ratio Triglycerides Cholesterol LDL Cholesterol Direct HDL Cholesterol Procalcitonin 09/24/18 09/25/18 09/25/18 18:55 09:52 10:21 WBC RBC Hgb Hct MCV MCH MCHC RDW Plt Count MPV Neut % (Auto) Lymph % (Auto) [place] % (Auto) Eos % (Auto) Baso % (Auto) Neut # (Auto) Lymph # (Auto) [place] # (Auto) Eos # (Auto) Baso # (Auto) Neutrophils % (Manual) Lymphocytes % (Manual) Monocytes % (Manual) Platelet Estimate Poikilocytosis (manual Anisocytosis (manual) PT INR APTT Sodium 140 138 Potassium 3.9 3.8 Chloride 101 104 Carbon Dioxide 29 30 Anion Gap 13 9 L BUN 31 H 31 H Creatinine 1.0 1.0 Est GFR ( Amer) > 60 > 60 Est GFR (Non-Af Amer) > 60 > 60 POC Glucose (mg/dL) Random Glucose 86 91 Calcium 8.9 8.7 Phosphorus 3.4 Magnesium 2.0 Total Bilirubin 1.0 0.8 AST 24 32 ALT 16 L 19 L Alkaline Phosphatase 107 99 Total Creatine Kinase 31 L < 20 L CK-MB (Mass) 1.46 0.94 Troponin I 0.1230 H* 0.1230 H* NT-Pro-B Natriuret Pep 675 503 Total Protein 7.0 6.7 Albumin 3.4 L 3.2 L Globulin 3.6 3.5 Albumin/Globulin Ratio 0.9 L 0.9 L Triglycerides 89 Cholesterol 168 LDL Cholesterol Direct 102 HDL Cholesterol 46 Procalcitonin 0.29 09/25/18 09/25/18 10:21 15:06 WBC 6.7 RBC 4.28 L Hgb 11.9 L Hct 36.9 MCV 86.3 MCH 27.8 MCHC 32.2 L RDW 18.7 H Plt Count 219 MPV 7.7 Neut % (Auto) 76.0 H Lymph % (Auto) 12.6 L [place] % (Auto) 8.9 Eos % (Auto) 1.9 Baso % (Auto) 0.6 Neut # (Auto) 5.1 Lymph # (Auto) 0.8 L [place] # (Auto) 0.6 Eos # (Auto) 0.1 Baso # (Auto) 0.0 Neutrophils % (Manual) Lymphocytes % (Manual) Monocytes % (Manual) Platelet Estimate Poikilocytosis (manual Anisocytosis (manual) PT INR APTT Sodium Potassium Chloride Carbon Dioxide Anion Gap BUN Creatinine Est GFR ( Amer) Est GFR (Non-Af Amer) POC Glucose (mg/dL) Random Glucose Calcium Phosphorus Magnesium Total Bilirubin AST ALT Alkaline Phosphatase Total Creatine Kinase < 20 L CK-MB (Mass) 0.97 Troponin I 0.0940 NT-Pro-B Natriuret Pep Total Protein Albumin Globulin Albumin/Globulin Ratio Triglycerides Cholesterol LDL Cholesterol Direct HDL Cholesterol Procalcitonin Assessment & Plan (1) ACS (acute coronary syndrome) Assessment and Plan: Positive troponin, etiology ?. exam suggestive of Aortic stenosis. Obtain old record from Primary. Echocardiogram and Further management accordingly. Status: Acute (2) Ischemic stroke Assessment and Plan: Work-up in progress and further management according to neurology. Status: Acute
--- NOTE | 2018-09-25 18:25 | CP.PCM.CON ---
History of Present Illness - History of Present Illness History of Present Illness: Neurology Consultation Note: Mr. bennett is an 83-year-old man, who was referred to me by Dr. Rodriguez, with a past medical history of recently diagnosed dementia, who was found wandering outside the police station. He was brought in to the ED and was a poor historian. MRI of the brain was done and showed several small areas of rest ricted diffusion as well as chronic infarcts. These appeared to be distal and likely embolic. Neurology was consulted to assist with the management and care. Review of Systems - Review of Systems Systems not reviewed;Unavailable: Altered Mental Status Past Patient History - Past Medical History & Family History Past Medical History?: No - Past Social History Smoking Status: Unknown If Ever Smoked - CARDIAC Other/Comment: High Triglyceride - MUSCULOSKELETAL/RHEUMATOLOGICAL Hx Falls: Yes - GENITOURINARY/GYNECOLOGICAL Hx Prostate Problems: Yes - PSYCHIATRIC Hx Substance Use: No - SURGICAL HISTORY Hx Cholecystectomy: Yes - ANESTHESIA Hx Anesthesia: Yes Hx Anesthesia Reactions: No Meds Allergies/Adverse Reactions: Allergies Allergy/AdvReac Type Severity Reaction Status Date / Time No Known Allergies Allergy Verified 09/24/18 18:23 - Medications Medications: Current Medications Aspirin (Aspirin Chewable) 81 mg PO DAILY [facility] Last Admin: 09/25/18 11:04 Dose: 81 mg Clopidogrel Bisulfate (Plavix) 75 mg PO DAILY [facility] Donepezil HCl (Aricept) 5 mg PO HS [facility] Enoxaparin Sodium (Lovenox) 40 mg SC Q12 [facility] Finasteride (Proscar) 5 mg PO DAILY [facility] Last Admin: 09/25/18 11:04 Dose: 5 mg Sodium Chloride (Sodium Chloride 0.9%) 1,000 mls @ 75 mls/hr IV .[id number] [facility] Last Admin: 09/25/18 11:19 Dose: 75 mls/hr Piperacillin Sod/Tazobactam Sod (Zosyn 3.375 Gm Iv Premix) 3.375 gm in 50 mls @ 200 mls/hr IVPB Q8H [facility]; Protocol Last Admin: 09/25/18 17:23 Dose: 200 mls/hr Vancomycin/Sodium Chloride (Vancomycin 1 Gm/Ns 200 Ml) 1 gm in 200 mls @ 167 mls/hr IVPB DAILY [facility]; Protocol Stop: 09/30/18 10:01 Last Admin: 09/25/18 12:35 Dose: 167 mls/hr Nicotine (Nicoderm Cq) 1 patch TD DAILY [facility] Last Admin: 09/25/18 11:03 Dose: 1 patch Saccharomyces Boulardii (Florastor) 250 mg PO BID [facility] Last Admin: 09/25/18 17:24 Dose: 250 mg Physical Exam - Constitutional Appears: Well - Head Exam Head Exam: ATRAUMATIC, NORMAL INSPECTION, NORMOCEPHALIC - Eye Exam Eye Exam: EOMI, Normal appearance, PERRL Pupil Exam: NORMAL ACCOMODATION, PERRL - ENT Exam ENT Exam: Mucous Membranes Moist, Normal Exam - Neck Exam Neck exam: Positive for: Normal Inspection - Respiratory Exam Respiratory Exam: Clear to Auscultation Bilateral, NORMAL BREATHING PATTERN - Cardiovascular Exam Cardiovascular Exam: REGULAR RHYTHM, +S1, +S2 - GI/Abdominal Exam GI & Abdominal Exam: Normal Bowel Sounds, Soft. absent: Tenderness - Extremities Exam Extremities exam: Positive for: normal inspection - Back Exam Back exam: NORMAL INSPECTION - Neurological Exam Neurological exam: Alert, Altered, CN II-XII Intact, Normal Gait, Reflexes Normal Additional comments: NIHSS = 1 - Psychiatric Exam Psychiatric exam: Normal Affect, Normal Mood - Skin Skin Exam: Dry, Intact, Normal Color, Warm Results - Vital Signs Recent Vital Signs: Last Vital Signs Temp 98.0 F 09/25/18 15:00 Pulse 79 09/25/18 16:48 Resp 20 09/25/18 15:00 BP 112/64 09/25/18 15:00 Pulse Ox 98 09/25/18 15:00 - Labs Result Diagrams: 09/25/18 10:21 09/25/18 09:52 Labs: Laboratory Results - last 24 hr 09/24/18 09/24/18 09/24/18 18:55 18:55 18:55 WBC 8.8 RBC 4.76 Hgb 13.0 Hct 41.1 MCV 86.3 MCH 27.4 MCHC 31.7 L RDW 19.4 H Plt Count 248 MPV 7.4 Neut % (Auto) 82.0 H Lymph % (Auto) 7.6 L Mchenry % (Auto) 9.9 Eos % (Auto) 0.2 Baso % (Auto) 0.3 Neut # (Auto) 7.2 H Lymph # (Auto) 0.7 L Mchenry # (Auto) 0.9 H Eos # (Auto) 0.0 Baso # (Auto) 0.0 Neutrophils % (Manual) 81 H Lymphocytes % (Manual) 10 L Monocytes % (Manual) 9 Platelet Estimate Normal Poikilocytosis (manual Slight Anisocytosis (manual) Slight PT 10.0 INR 0.9 APTT 28 Sodium 140 Potassium 3.9 Chloride 101 Carbon Dioxide 29 Anion Gap 13 BUN 31 H Creatinine 1.0 Est GFR ( Amer) > 60 Est GFR (Non-Af Amer) > 60 Random Glucose 86 Calcium 8.9 Phosphorus Magnesium Total Bilirubin 1.0 AST 24 ALT 16 L Alkaline Phosphatase 107 Total Creatine Kinase 31 L CK-MB (Mass) 1.46 Troponin I 0.1230 H* NT-Pro-B Natriuret Pep 675 Total Protein 7.0 Albumin 3.4 L Globulin 3.6 Albumin/Globulin Ratio 0.9 L Triglycerides Cholesterol LDL Cholesterol Direct HDL Cholesterol Procalcitonin 09/25/18 09/25/18 09/25/18 09:52 10:21 10:21 WBC 6.7 RBC 4.28 L Hgb 11.9 L Hct 36.9 MCV 86.3 MCH 27.8 MCHC 32.2 L RDW 18.7 H Plt Count 219 MPV 7.7 Neut % (Auto) 76.0 H Lymph % (Auto) 12.6 L Mchenry % (Auto) 8.9 Eos % (Auto) 1.9 Baso % (Auto) 0.6 Neut # (Auto) 5.1 Lymph # (Auto) 0.8 L Mchenry # (Auto) 0.6 Eos # (Auto) 0.1 Baso # (Auto) 0.0 Neutrophils % (Manual) Lymphocytes % (Manual) Monocytes % (Manual) Platelet Estimate Poikilocytosis (manual Anisocytosis (manual) PT INR APTT Sodium 138 Potassium 3.8 Chloride 104 Carbon Dioxide 30 Anion Gap 9 L BUN 31 H Creatinine 1.0 Est GFR ( Amer) > 60 Est GFR (Non-Af Amer) > 60 Random Glucose 91 Calcium 8.7 Phosphorus 3.4 Magnesium 2.0 Total Bilirubin 0.8 AST 32 ALT 19 L Alkaline Phosphatase 99 Total Creatine Kinase < 20 L CK-MB (Mass) 0.94 Troponin I 0.1230 H* NT-Pro-B Natriuret Pep 503 Total Protein 6.7 Albumin 3.2 L Globulin 3.5 Albumin/Globulin Ratio 0.9 L Triglycerides 89 Cholesterol 168 LDL Cholesterol Direct 102 HDL Cholesterol 46 Procalcitonin 0.29 09/25/18 15:06 WBC RBC Hgb Hct MCV MCH MCHC RDW Plt Count MPV Neut % (Auto) Lymph % (Auto) Mchenry % (Auto) Eos % (Auto) Baso % (Auto) Neut # (Auto) Lymph # (Auto) Mchenry # (Auto) Eos # (Auto) Baso # (Auto) Neutrophils % (Manual) Lymphocytes % (Manual) Monocytes % (Manual) Platelet Estimate Poikilocytosis (manual Anisocytosis (manual) PT INR APTT Sodium Potassium Chloride Carbon Dioxide Anion Gap BUN Creatinine Est GFR ( Amer) Est GFR (Non-Af Amer) Random Glucose Calcium Phosphorus Magnesium Total Bilirubin AST ALT Alkaline Phosphatase Total Creatine Kinase < 20 L CK-MB (Mass) 0.97 Troponin I 0.0940 NT-Pro-B Natriuret Pep Total Protein Albumin Globulin Albumin/Globulin Ratio Triglycerides Cholesterol LDL Cholesterol Direct HDL Cholesterol Procalcitonin Assessment & Plan (1) Ischemic stroke Assessment and Plan: Strokes appear to be of embolic origin. The patient may have paroxysmal atrial fibrillation. His dementia is likely due to vascular causes. I recommend the followin. Telemetry 2. MRA of the head/neck 3. Echocardiogram 4. Check HbA1c, B12, folate, vitamin D levels and lipid panel 5. Start Aspirin 81 mg daily and Plavix 75 mg daily 6. PT/OT eval and treatment 7. Permissive HTN for the next 36 hours (only treat BP that is higher than 220/110 mm Hg), then normalize 8. Fluids with NS at 100 mL/hr Thank you for this consultation Status: Acute
[2018-09-25] MEDS: Enoxaparin 40 mg Syringe SC SCH (22:11)
[2018-09-26] MEDS: Piperacill/Tazo 3.375gm in Dex 3.375 GM/50 ML BAG IVPB SCH ×3 (01:28→18:33)
[2018-09-26] MEDS: Sodium Chloride 0.9% 1,000 ML IV SCH (01:32)
[2018-09-26 08:24] LABS: BASO % 0.8 % (0.0-2.0); EOS # 0.2 K/uL (0.0-0.7); EOS % 3.1 % (0.0-4.0); HEMOGLOBIN 10.6 g/dL (12.0-18.0); LYMPH # 1.1 K/uL (1.0-4.3); LYMPH % 19.2 % (20.0-40.0); MEAN CELL VOLUME 85.9 fL (80.0-94.0); MEAN CORPUSCULAR HEMOGLOBIN 28.4 pg (27.0-31.0); MEAN CORPUSCULAR HGB CONC 33.1 g/dL (33.0-37.0); MEAN PLATELET VOLUME 7.7 fL (7.2-11.7); MONO # 0.5 K/uL (0.0-0.8); MONO % 8.9 % (0.0-10.0); RBC 3.74 Mil/uL (4.40-5.90); RED CELL DISTRIBUTION WIDTH 18.5 % (11.5-14.5); WHITE BLOOD COUNT 5.9 K/uL (4.8-10.8)
[2018-09-26 08:32] LABS: ALB/GLOB RATIO 0.8 (1.0-2.1); ALBUMIN 2.5 g/dL (3.5-5.0); ALT/SGPT 18 U/L (21-72); AST/SGOT 30 U/L (17-59); BLOOD UREA NITROGEN 26 mg/dL (9-20); CALCIUM 8.3 mg/dl (8.6-10.4); GFR NON-AFRICAN AMERICAN > 60
[2018-09-26] MEDS: Saccharomyces Boulardi 250 mg Cap PO SCH ×2 (09:46→18:33)
[2018-09-26] MEDS: Enoxaparin 40 mg Syringe SC SCH ×2 (09:47→23:04)
[2018-09-26 10:34] LABS: HEPATITIS B SURFACE AG Negative (NEGATIVE)
[2018-09-26 10:40] LABS: HEPATITIS A IGM NEGATIVE (NEGATIVE); HEPATITIS B CORE AB NEGATIVE (NEGATIVE)
[2018-09-26 10:52] LABS: HEPATITIS C ANTIBODY NEGATIVE (NEGATIVE)
--- NOTE | 2018-09-26 11:45 | CP.PCM.PN ---
<Alirio Dunbar - Last Filed: 09/26/18 15:52> Subjective - Date & Time of Evaluation Date of Evaluation: 09/26/18 Time of Evaluation: 15:53 - Subjective Subjective: PGY3 Note for Dr. 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 He denies all symptoms. Objective - Vital Signs/Intake and Output Vital Signs (last 24 hours): Temp Pulse Resp BP Pulse Ox 97.7 F 62 18 118/70 96 09/26/18 07:48 09/26/18 07:48 09/26/18 07:48 09/26/18 07:48 09/26/18 07:48 Intake and Output: 09/26/18 09/26/18 06:59 18:59 Output Total 350 Balance -350 - Medications Medications: Current Medications Aspirin (Aspirin Chewable) 81 mg PO DAILY [facility] Last Admin: 09/25/18 11:04 Dose: 81 mg Clopidogrel Bisulfate (Plavix) 75 mg PO DAILY [facility] Last Admin: 09/26/18 09:47 Dose: 75 mg Donepezil HCl (Aricept) 5 mg PO HS [facility] Last Admin: 09/25/18 22:11 Dose: 5 mg Enoxaparin Sodium (Lovenox) 40 mg SC Q12 [facility] Last Admin: 09/26/18 09:47 Dose: 40 mg Finasteride (Proscar) 5 mg PO DAILY [facility] Last Admin: 09/26/18 09:46 Dose: 5 mg Sodium Chloride (Sodium Chloride 0.9%) 1,000 mls @ 75 mls/hr IV .[id number] [facility] Last Admin: 09/26/18 01:32 Dose: 75 mls/hr Piperacillin Sod/Tazobactam Sod (Zosyn 3.375 Gm Iv Premix) 3.375 gm in 50 mls @ 200 mls/hr IVPB Q8H [facility]; Protocol Last Admin: 09/26/18 09:47 Dose: 200 mls/hr Vancomycin/Sodium Chloride (Vancomycin 1 Gm/Ns 200 Ml) 1 gm in 200 mls @ 167 mls/hr IVPB DAILY [facility]; Protocol Stop: 09/30/18 10:01 Last Admin: 09/25/18 12:35 Dose: 167 mls/hr Nicotine (Nicoderm Cq) 1 patch TD DAILY [facility] Last Admin: 09/26/18 09:47 Dose: 1 patch Saccharomyces Boulardii (Florastor) 250 mg PO BID [facility] Last Admin: 09/26/18 09:46 Dose: 250 mg - Labs Labs: 09/26/18 08:09 09/26/18 08:09 PT 10.0 SECONDS (9.7-12.2) 09/24/18 18:55 INR 0.9 09/24/18 18:55 APTT 28 SECONDS (21-34) 09/24/18 18:55 - Constitutional Appears: Non-toxic, Confused, Cachectic, Chronically Ill - Head Exam Head Exam: ATRAUMATIC - Eye Exam Eye Exam: EOMI - Neck Exam Neck Exam: Full ROM. absent: Lymphadenopathy - Respiratory Exam Respiratory Exam: Rales, NORMAL BREATHING PATTERN. absent: Clear to Ausculation Bilateral, Rhonchi, Wheezes - Cardiovascular Exam Cardiovascular Exam: REGULAR RHYTHM, +S1, +S2, Murmur - GI/Abdominal Exam GI & Abdominal Exam: Soft, Normal Bowel Sounds - Extremities Exam Extremities Exam: Full ROM. absent: Calf Tenderness - Back Exam Back Exam: NORMAL INSPECTION. absent: CVA tenderness (L), CVA tenderness (R) - Neurological Exam Neurological Exam: Awake - Skin Skin Exam: Warm Assessment and Plan - Assessment and Plan (Free Text) Assessment: 83yo M admitted for AMS Encephalopathy; unknown origin stroke vs infection vs metabolic -head CT showed multiple old infarcts; no acute infarct seen; please refer to full report -f/u MRI 09/25 -f/u head/neck MRA -f/u echo -Neurology; Dr. Manrique; thank you for your help -neuro checks -NIH 1 on admission; -f/u TSH, blood cultures, procal, UA/Cul, hemoglobin a1c (patient was recently treated for bacteremia) [place] [facility] [place]neuro checks q4h -head of bed elevated -aspiration precautions -f/u swallow eval formal -therapeutic lovenox 40mg SC BID NSTEMI -nonspecific t-wave abnormality -c/w therapeutic lovenox, plavix daily -murmur on exam; f/u echo -f/u bnp; no signs of clinical overload -elevated troponin; f/u repeat now and at 2pm -Dr. Doty; cardiology; thank you for your help PNA -c/w zosyn 3.375 Q8H -c/w vancomycin 1g Q24H Hx of Dementia -donepizil 5mg daily -refused prior MRI and neuroworkup that was within 3mo Hx of BPH -c/w finasteride Hx of bacteremia; treated at [facility] [place] -Vanc 1g Q24h prophylactically -Zosyn 3.375 Q6H proph -f/u blood culture -WBC elevated; no other symptoms -UA Hyperglycemia -f/u hemoglobin a1c Proph -Lovenox therapeutic 40mg SC BID -GI prophylaxis not indicated as is eating -hx of falls; fall precautions -PT/OT eval discussed and seen with Dr. Jennifer Dunbar PGY3 <Renetta Rodriguez V - Last Filed: 09/26/18 18:07> Objective - Vital Signs/Intake and Output Vital Signs (last 24 hours): Temp Pulse Resp BP Pulse Ox 98.2 F 76 20 131/79 97 09/26/18 15:00 09/26/18 15:51 09/26/18 15:00 09/26/18 15:00 09/26/18 15:00 Intake and Output: 09/26/18 09/26/18 06:59 18:59 Output Total 350 Balance -350 - Medications Medications: Current Medications Aspirin (Aspirin Chewable) 81 mg PO DAILY [facility] Last Admin: 09/26/18 12:07 Dose: 81 mg Clopidogrel Bisulfate (Plavix) 75 mg PO DAILY [facility] Last Admin: 09/26/18 09:47 Dose: 75 mg Donepezil HCl (Aricept) 5 mg PO HS [facility] Last Admin: 09/25/18 22:11 Dose: 5 mg Enoxaparin Sodium (Lovenox) 40 mg SC Q12 [facility] Last Admin: 09/26/18 09:47 Dose: 40 mg Finasteride (Proscar) 5 mg PO DAILY [facility] Last Admin: 09/26/18 09:46 Dose: 5 mg Sodium Chloride (Sodium Chloride 0.9%) 1,000 mls @ 75 mls/hr IV .[id number] [facility] Last Admin: 09/26/18 01:32 Dose: 75 mls/hr Piperacillin Sod/Tazobactam Sod (Zosyn 3.375 Gm Iv Premix) 3.375 gm in 50 mls @ 200 mls/hr IVPB Q8H [facility]; Protocol Last Admin: 09/26/18 09:47 Dose: 200 mls/hr Vancomycin/Sodium Chloride (Vancomycin 1 Gm/Ns 200 Ml) 1 gm in 200 mls @ 167 mls/hr IVPB DAILY [facility]; Protocol Stop: 09/30/18 10:01 Last Admin: 09/26/18 12:07 Dose: 167 mls/hr Nicotine (Nicoderm Cq) 1 patch TD DAILY [facility] Last Admin: 09/26/18 09:47 Dose: 1 patch Saccharomyces Boulardii (Florastor) 250 mg PO BID [facility] Last Admin: 09/26/18 09:46 Dose: 250 mg - Labs Labs: 09/26/18 08:09 09/26/18 08:09 PT 10.0 SECONDS (9.7-12.2) 09/24/18 18:55 INR 0.9 09/24/18 18:55 APTT 28 SECONDS (21-34) 09/24/18 18:55 Attending/Attestation - Attestation I have personally seen and examined this patient.: Yes I have fully participated in the care of the patient.: Yes I have reviewed all pertinent clinical information, including history, physical exam and plan: Yes Notes (Text): Patient seen, examined, and case discussed with day-time resident Patient seen this morning with the assistance of [place] parent coachMargie. Patient denies acute complaints today. Patient denies dizziness. Patient reports he is eating. Patient has had a bowel movement at bedside; we have helped clinical partner to clean patient. no sacral decub noted. regular movement. Discussed with cardiology, awaiting echocardiogram; likely aortic stenosis and continue therapuetic lovenox; pending given no documented paroxysmal atrial fibrillation noted. Patient does have underlying valvuar problem but unclear what workup he has had. Patient is receiving IV abx to cover for pneumonia, health care associated given [place] [facility] [place]. Neuro has recommended for MRA head/neck; which cannot completed given its a hol and not open on Sundays Assessment/Plan 1) Acute CVA, embolic? History of Dementia History of Prior Strokes Assessment/Plan * Neurology (Dr. Manrique) solution advisor-->help appreciated * Cardiology (Dr. Lujan) on consult-->help appreciated * Dr. Benz covering for Dr. lujan this * We will need to f/u [facility] to retrieve workup for valvular disease since it is closed this week tomorrow * CT head (09/25/18): showed multiple old infarcts; no acute infarct seen; please refer to full report * embolic etiology? * Brain MRI w/o contrast (09/25/18): 2 tiny focal areas of mild restricted diffusion, both of which are locatd in the posterior temporoparietal cortices left slightly larger and slight more anterior in location on the right side. (both areas are adjacent to abutting areas of larger chronic inarcts left larger than right. Both of these foci could represent small acute/subacute areas of reversible ischemia or tiny acute/subacute infarcts/ no additional focl areas of abnormal restricted diffusion identified. Chronic confluent white matter ischemic changes with more discrete bifrontal infarcts lert lagrer than right. chronic bilateral cerebellar infarcts * Echo with bubble ordered; patient does have a murmur on exam * Neuro checks Q4H * NIHHS 1 on admission * Aspiration precautions * Confirmed with nurse, patient has passed bedside swallow eval in the ED * hgba1c: 5.1 * Lipid panel: T, Cholestrol: 168, LDL: 102, HDL: 42 * Aspirin 81mg PO daily * Plavix 75mg PO daily * Pending MRA of heck and neck * Check B12/folate/vitamin D * NS 100cc/hr 2) NSTEMI vs Elevated troponin Assessment/Plan * Cardiology (Dr. Lujan) solution advisor-->help appreciated * Dr. Benz covering for Dr. lujan this * We will need to f/u [facility] to retrieve workup for valvular disease since it is closed this week tomorrow * nonspecific t-wave abnormality; no prior EKG available * murmur on exam; f/u echocardiogram with bubble * f/u bnp; no signs of clinical overload * hgba1c: 5.1 * Lipid panel: T, Cholestrol: 168, LDL: 102, HDL: 42 * Aspirin 81mg PO daily * Plavix 75mg PO daily * Lovenox 1mg/subq!2H * troponin has normlized * pending echocardiogram 3) Hx of Dementia Assessment/Plan * Donepizil 5mg daily * check b12/folate/vitamin D 4) Hx of BPH Assessment/Plan * c/w finasteride 5mg PO daily 5) Prior Hx of bacteremia; treated at [facility] [place] ago Pneumonia Assessment/Plan * monitor for fever * Blood cultures (09/24/18): no growth after 24 hours X2 * c/w Zosyn 3.375 IV q6H (active since 09/25/18) * c/w Vancomycin 1 gram IVPB daily (active since 09/25/18) * Procalcitonin: low * no elevated white count, no left shift * Chest xray (09/24/18): consolidation consistent with pneumonia involving the right middle and lower lobes. Pathcy infiltrate left lung base. COPD/Emphysema. Elevated of the right hemidiaphgram. * Duonebs 3ml INH RQ6H PRN shortness of breathe * mucinex 600mg PO BID 6) Hyperglycemia Assessment/Plan * hgba1c: 5.1 7) History of Falls Assessment/Plan * Activity: Falls * PT/OT eval 8) Prophylactic measure * Lovenox therapeutic 40mg SC Q12H * GI prophylaxis not indicated as is eating * hx of falls; fall precautions * PT/OT eval * NS 75/cc/hr Disposition: Patient is pending MRA head/Neck; echocardiogram. Pending neurology/cardiology recommendations. We will need to retrieve hospital records [place] [facility] and from [facility] to check for further workup. Patient to continue IV abx to cover for healthcare associated pneumonia.
[2018-09-26] MEDS: Vancomycin 1 gm/NS 200 ml 1 GM/200 ML BAG IVPB SCH (12:07)
--- NOTE | 2018-09-26 16:28 | CP.PCM.PN ---
Subjective - Date & Time of Evaluation Date of Evaluation: 09/26/18 Time of Evaluation: 16:26 - Subjective Subjective: Complains of being hungry. denies any chest pain or SOB. Objective - Vital Signs/Intake and Output Vital Signs (last 24 hours): Temp Pulse Resp BP Pulse Ox 98.2 F 76 20 131/79 97 09/26/18 15:00 09/26/18 15:51 09/26/18 15:00 09/26/18 15:00 09/26/18 15:00 Intake and Output: 09/26/18 09/26/18 06:59 18:59 Output Total 350 Balance -350 - Medications Medications: Current Medications Aspirin (Aspirin Chewable) 81 mg PO DAILY [facility] Last Admin: 09/26/18 12:07 Dose: 81 mg Clopidogrel Bisulfate (Plavix) 75 mg PO DAILY [facility] Last Admin: 09/26/18 09:47 Dose: 75 mg Donepezil HCl (Aricept) 5 mg PO HS [facility] Last Admin: 09/25/18 22:11 Dose: 5 mg Enoxaparin Sodium (Lovenox) 40 mg SC Q12 [facility] Last Admin: 09/26/18 09:47 Dose: 40 mg Finasteride (Proscar) 5 mg PO DAILY [facility] Last Admin: 09/26/18 09:46 Dose: 5 mg Sodium Chloride (Sodium Chloride 0.9%) 1,000 mls @ 75 mls/hr IV .[id number] [facility] Last Admin: 09/26/18 01:32 Dose: 75 mls/hr Piperacillin Sod/Tazobactam Sod (Zosyn 3.375 Gm Iv Premix) 3.375 gm in 50 mls @ 200 mls/hr IVPB Q8H [facility]; Protocol Last Admin: 09/26/18 09:47 Dose: 200 mls/hr Vancomycin/Sodium Chloride (Vancomycin 1 Gm/Ns 200 Ml) 1 gm in 200 mls @ 167 mls/hr IVPB DAILY [facility]; Protocol Stop: 09/30/18 10:01 Last Admin: 09/26/18 12:07 Dose: 167 mls/hr Nicotine (Nicoderm Cq) 1 patch TD DAILY [facility] Last Admin: 09/26/18 09:47 Dose: 1 patch Saccharomyces Boulardii (Florastor) 250 mg PO BID [facility] Last Admin: 09/26/18 09:46 Dose: 250 mg - Labs Labs: 09/26/18 08:09 09/26/18 08:09 PT 10.0 SECONDS (9.7-12.2) 09/24/18 18:55 INR 0.9 09/24/18 18:55 APTT 28 SECONDS (21-34) 09/24/18 18:55 - Neck Exam Neck Exam: Normal Inspection - Respiratory Exam Respiratory Exam: NORMAL BREATHING PATTERN - Cardiovascular Exam Cardiovascular Exam: REGULAR RHYTHM - Neurological Exam Neurological Exam: Alert, Oriented x3 Assessment and Plan (1) ACS (acute coronary syndrome) Assessment & Plan: Borderline troponin. Continue DAPT. Further cardiac work-up when OK with neurology. Status: Acute (2) Ischemic stroke Assessment & Plan: No new issues. Further work-up as neurology. Status: Acute
[2018-09-26 21:08] LABS: FOLATE 13.5 ng/mL
[2018-09-26] MEDS: guaiFENesin 600 mg ER Tab PO SCH (23:04)
[2018-09-27] MEDS: Sodium Chloride 0.9% 1,000 ML IV SCH ×2 (02:45→14:52)
[2018-09-27] MEDS: Piperacill/Tazo 3.375gm in Dex 3.375 GM/50 ML BAG IVPB SCH ×3 (02:45→18:00)
--- NOTE | 2018-09-27 07:37 | CP.PCM.PN ---
<Chrystal Moreno - Last Filed: 09/27/18 16:04> Subjective - Date & Time of Evaluation Date of Evaluation: 09/27/18 Time of Evaluation: 07:36 - Subjective Subjective: Medicine Progress Note - Dr Rodriguez's Service covering for Dr Norris Patient seen and examined at bedside. Valentin dior was called last night for agitation. Patient reports that he wants to kill himself if he doesn't leave the hospital. Currenlty on 1:1. He is tolerating diet and reports good appetite. Denies any fevers, chills, headaches, dizziness, lightheadedness, cp, palpitations, sob, abdominal pain, urinary symptoms. Objective - Vital Signs/Intake and Output Vital Signs (last 24 hours): Temp Pulse Resp BP Pulse Ox 98.2 F 76 20 131/79 97 09/26/18 15:00 09/26/18 23:15 09/26/18 15:00 09/26/18 15:00 09/26/18 15:00 - Medications Medications: Current Medications Albuterol/Ipratropium (Duoneb 3 Mg/0.5 Mg (3 Ml) Ud) 3 ml INH RQ6 PRN PRN Reason: Shortness of Breath Aspirin (Aspirin Chewable) 81 mg PO DAILY [facility] Last Admin: 09/26/18 12:07 Dose: 81 mg Clopidogrel Bisulfate (Plavix) 75 mg PO DAILY [facility] Last Admin: 09/26/18 09:47 Dose: 75 mg Donepezil HCl (Aricept) 5 mg PO HS [facility] Last Admin: 09/26/18 23:03 Dose: Not Given Enoxaparin Sodium (Lovenox) 40 mg SC Q12 [facility] Last Admin: 09/26/18 23:04 Dose: Not Given Finasteride (Proscar) 5 mg PO DAILY [facility] Last Admin: 09/26/18 09:46 Dose: 5 mg Guaifenesin (Mucinex La) 600 mg PO BID [facility] Last Admin: 09/26/18 23:04 Dose: Not Given Sodium Chloride (Sodium Chloride 0.9%) 1,000 mls @ 75 mls/hr IV .[id number] [facility] Last Admin: 09/27/18 02:45 Dose: Not Given Piperacillin Sod/Tazobactam Sod (Zosyn 3.375 Gm Iv Premix) 3.375 gm in 50 mls @ 200 mls/hr IVPB Q8H [facility]; Protocol Last Admin: 09/27/18 02:45 Dose: Not Given Vancomycin/Sodium Chloride (Vancomycin 1 Gm/Ns 200 Ml) 1 gm in 200 mls @ 167 mls/hr IVPB DAILY [facility]; Protocol Stop: 09/30/18 10:01 Last Admin: 09/26/18 12:07 Dose: 167 mls/hr Nicotine (Nicoderm Cq) 1 patch TD DAILY [facility] Last Admin: 09/26/18 09:47 Dose: 1 patch Saccharomyces Boulardii (Florastor) 250 mg PO BID [facility] Last Admin: 09/26/18 18:33 Dose: 250 mg - Labs Labs: 09/26/18 08:09 09/26/18 08:09 PT 10.0 SECONDS (9.7-12.2) 09/24/18 18:55 INR 0.9 09/24/18 18:55 APTT 28 SECONDS (21-34) 09/24/18 18:55 - Constitutional Appears: Non-toxic, No Acute Distress - Head Exam Head Exam: ATRAUMATIC, NORMAL INSPECTION, NORMOCEPHALIC - Eye Exam Eye Exam: EOMI, Normal appearance - ENT Exam ENT Exam: Mucous Membranes Moist - Respiratory Exam Respiratory Exam: Decreased Breath Sounds, Rhonchi, NORMAL BREATHING PATTERN. absent: Accessory Muscle Use, Rales, Wheezes - Cardiovascular Exam Cardiovascular Exam: REGULAR RHYTHM, +S1, +S2, Murmur - GI/Abdominal Exam GI & Abdominal Exam: Soft. absent: Guarding, Rigid, Tenderness - Extremities Exam Extremities Exam: Normal Inspection. absent: Calf Tenderness - Neurological Exam Neurological Exam: Alert, Awake (Oriented to person and time) - Psychiatric Exam Psychiatric exam: Suicidal Ideation - Skin Skin Exam: Dry, Normal Color, Warm Assessment and Plan - Assessment and Plan (Free Text) Assessment: A/P: Patient is a 83 year old M who was admitted for Altered mental status Acute CVA -CVA possibly embolic in nature -We will continue ASA 81mg PO daily, Plavix 75mg PO daily -Started on Crestor 10mg PO HS -Patient unable to complete echo with bubble study and MRA Neck secondary to agitation -Patient scheduled for JOSE to r/o PFO on 09/19/18 at 8am -Neurology on consult, Dr Manrique, help appreciated Imaging: -CT head: showed multiple old infarcts; no acute infarct seen; please refer to full report -Brain MRI:There are 2 tiny focal areas of mild restricted diffusion, both of which are located in the posterior temporoparietal cortices left slightly larger and the slightly more anterior in location on the right side. Note that the both of these foci are adjacent to, abutting areas of larger chronic infarcts left larger than right... Both of these foci could represent small acute/subacute areas of reversible ischemia (TIAs) or tiny acute/subacute infarcts. Note that a small components of shine through artifact cannot be excluded. No additional focal areas of abnormal restricted diffusion identified. Chronic confluent white matter ischemic changes with more discrete bifrontal infarcts left larger than right. There also chronic bilateral cerebellar infarcts -Echocardiogram: EF 65-70%, diastolic dysfunction, severe valvular aortic stenosis, aortic valve area 0.76cm2, borderline MVP Encephalopathy; unknown origin stroke vs infection vs metabolic -Neurology; Dr. Manrique; thank you for your help -[facility] 1 on admission -Neuro checks q4h -Head of bed elevated, aspiration precautions -Therapeutic Lovenox 40mg SC BID -UA ordered NSTEMI -EKG showed Nonspecific t-wave abnormality -c/w therapeutic lovenox, plavix daily -Troponins 0.1230, 0.1230, 0.0940 -Patient will need cardiac cath and TVR pending neuro clearance -Dr. Lujan; cardiology; thank you for your help Pneumonia -Afebrile, no leukocytosis, procalcitonin was low -CXR showed consolidation in right middle lobes and right lower lobe, patchy infiltrate in left lower lobe (see full report) -Antibiotics: Zosyn 3.375 Q8H (started 09/25/18) and Vancomycin 1g Q24H (started 09/25/18) -Continue Florastor 250mg PO BID -Continue Mucinex 600mg PO BID, Duonebs 3ml INH RQ6H PRN shortness of breath Suicidal Ideation -Patient placed on 1:1 for safety -Psych on consult, Dr Brown, help appreciated Hx of Dementia -Donepizil 5mg daily -Refused prior MRI and neuroworkup that was within 3mo -Patient started on Seroquel 25mg PO HS for agitation Hx of BPH -Continue Finasteride 5mg PO daily Hx of bacteremia; treated at [facility] [place] 3[place] ago -Continue Vanc 1g Q24h and Zosyn 3.375 Q8H -Blood cultures (09/24/18): no growth after 24 hours X 2 -UA ordered Hyperglycemia -Hemoglobin a1c 5.1 GI/DVT ppx: -Lovenox therapeutic 40mg SC BID -GI prophylaxis not indicated as is eating -hx of falls; fall precautions -PT/OT eval Plan discussed and seen with Dr. Jennifer Moreno DO PGY-2 <Renetta Rodriguez V - Last Filed: 10/17/18 17:34> Objective - Vital Signs/Intake and Output Vital Signs (last 24 hours): Temp Pulse Resp BP Pulse Ox 97.8 F 66 20 143/80 100 10/15/18 15:58 10/15/18 15:58 10/15/18 15:58 10/15/18 15:58 10/15/18 15:58 - Labs Labs: 10/15/18 07:55 10/15/18 07:56 PT 14.8 SECONDS (9.7-12.2) H 10/11/18 12:37 INR 1.4 10/11/18 12:37 APTT 33 SECONDS (21-34) 10/11/18 12:37 Attending/Attestation - Attestation I have personally seen and examined this patient.: Yes I have fully participated in the care of the patient.: Yes I have reviewed all pertinent clinical information, including history, physical exam and plan: Yes
[2018-09-27 08:28] LABS: BASO # 0.1 K/uL (0.0-0.2); BASO % 1.3 % (0.0-2.0); EOS # 0.1 K/uL (0.0-0.7); EOS % 2.2 % (0.0-4.0); LYMPH # 1.3 K/uL (1.0-4.3); MEAN CELL VOLUME 86.1 fL (80.0-94.0); MEAN CORPUSCULAR HEMOGLOBIN 27.9 pg (27.0-31.0); MEAN CORPUSCULAR HGB CONC 32.4 g/dL (33.0-37.0); MEAN PLATELET VOLUME 7.7 fL (7.2-11.7); MONO # 0.7 K/uL (0.0-0.8); MONO % 10.4 % (0.0-10.0); NEUT # 4.4 K/uL (1.8-7.0); NEUT % 66.1 % (50.0-75.0); RBC 3.95 Mil/uL (4.40-5.90); RED CELL DISTRIBUTION WIDTH 18.5 % (11.5-14.5); WHITE BLOOD COUNT 6.6 K/uL (4.8-10.8)
[2018-09-27 08:41] LABS: ALB/GLOB RATIO 0.9 (1.0-2.1); ALBUMIN 2.8 g/dL (3.5-5.0); ALT/SGPT 17 U/L (21-72); AST/SGOT 20 U/L (17-59); BLOOD UREA NITROGEN 23 mg/dL (9-20); CALCIUM 8.4 mg/dl (8.6-10.4); GFR NON-AFRICAN AMERICAN > 60
[2018-09-27] MEDS: guaiFENesin 600 mg ER Tab PO SCH ×2 (09:20→18:01)
[2018-09-27] MEDS: Enoxaparin 40 mg Syringe SC SCH ×2 (09:20→21:24)
[2018-09-27] MEDS: Saccharomyces Boulardi 250 mg Cap PO SCH ×2 (09:20→18:01)
[2018-09-27] MEDS: Vancomycin 1 gm/NS 200 ml 1 GM/200 ML BAG IVPB SCH (09:21)
--- NOTE | 2018-09-27 09:31 | CARD ---
APPROVED REPORT Date of service: 09/24/2018 EKG Measurement Heart [id number] <Conclusion> Normal sinus rhythm Left ventricular hypertrophy with repolarization abnormality Abnormal ECG
--- NOTE | 2018-09-27 11:32 | CP.PCM.PN ---
Subjective - Date & Time of Evaluation Date of Evaluation: 09/27/18 Time of Evaluation: 11:29 - Subjective Subjective: 83 y/o male s/p CVA Appears comfortable now Denies chets pain Physical Exam - Head Exam Head Exam: NORMOCEPHALIC - Neck Exam Neck exam: Positive for: Normal Inspection - Respiratory Exam Respiratory Exam: NORMAL BREATHING PATTERN - Cardiovascular Exam Cardiovascular Exam: REGULAR RHYTHM, Systolic Murmur 4/6 - Extremities Exam Extremities exam: Positive for: normal inspection Assessment & Plan (1) ACS (acute coronary syndrome) Assessment and Plan: Positive troponin, etiology ?. exam suggestive of Aortic stenosis. Obtain old record from Primary. Echocardiogram and Further management accordingly. Status: Acute (2) Ischemic stroke Assessment and Plan: Work-up in progress and further management according to neurology. Status: Acute For JOSE 09/29 for posiible PFO by ECHO (3) Severe Assessment and Plan: Once cleared by neurology will perform cardiac cat and TVR Status: Acute Objective - Vital Signs/Intake and Output Vital Signs (last 24 hours): Temp Pulse Resp BP Pulse Ox 97.6 F 56 L 20 146/75 98 09/27/18 07:29 09/27/18 07:59 09/27/18 07:29 09/27/18 07:29 09/27/18 07:29 - Medications Medications: Current Medications Albuterol/Ipratropium (Duoneb 3 Mg/0.5 Mg (3 Ml) Ud) 3 ml INH RQ6 PRN PRN Reason: Shortness of Breath Aspirin (Aspirin Chewable) 81 mg PO DAILY [facility] Last Admin: 09/27/18 09:20 Dose: 81 mg Clopidogrel Bisulfate (Plavix) 75 mg PO DAILY [facility] Last Admin: 09/27/18 09:20 Dose: 75 mg Donepezil HCl (Aricept) 5 mg PO HS [facility] Last Admin: 09/26/18 23:03 Dose: Not Given Enoxaparin Sodium (Lovenox) 40 mg SC Q12 [facility] Last Admin: 09/27/18 09:20 Dose: 40 mg Finasteride (Proscar) 5 mg PO DAILY [facility] Last Admin: 09/27/18 09:19 Dose: 5 mg Guaifenesin (Mucinex La) 600 mg PO BID [facility] Last Admin: 09/27/18 09:20 Dose: 600 mg Sodium Chloride (Sodium Chloride 0.9%) 1,000 mls @ 75 mls/hr IV .[id number] [facility] Last Admin: 09/27/18 02:45 Dose: Not Given Piperacillin Sod/Tazobactam Sod (Zosyn 3.375 Gm Iv Premix) 3.375 gm in 50 mls @ 200 mls/hr IVPB Q8H [facility]; Protocol Last Admin: 09/27/18 09:20 Dose: 200 mls/hr Vancomycin/Sodium Chloride (Vancomycin 1 Gm/Ns 200 Ml) 1 gm in 200 mls @ 167 mls/hr IVPB DAILY [facility]; Protocol Stop: 09/30/18 10:01 Last Admin: 09/27/18 09:21 Dose: 167 mls/hr Lorazepam (Ativan) 0.5 mg IVP ONCE PRN PRN Reason: Agitation Nicotine (Nicoderm Cq) 1 patch TD DAILY [facility] Last Admin: 09/27/18 09:20 Dose: 1 patch Rosuvastatin Calcium (Crestor) 10 mg PO HS [facility] Saccharomyces Boulardii (Florastor) 250 mg PO BID [facility] Last Admin: 09/27/18 09:20 Dose: 250 mg - Labs Labs: 09/27/18 08:10 09/27/18 08:10 PT 10.0 SECONDS (9.7-12.2) 09/24/18 18:55 INR 0.9 09/24/18 18:55 APTT 28 SECONDS (21-34) 09/24/18 18:55
--- NOTE | 2018-09-27 11:37 | PCM.PSYCH ---
Initial Psychiatric Evaluation - Initial Psychiatric Evaluation Type of Admission: Voluntary Legal Status: Capacity Chief Complaint (in patient's own words): I am feeling okay.' History of Present Illness and Precipitating Events: This patient is an 83yo Welsh speaking patient, who was BIBA at 7pm as he was wandering outside of the police station in [place]. He states that he is in "optimal health" and takes absolutely no medicines. The patient was consulted by psychiatry. Patient appeared disorganized, paranoid and delirious. As per the staff patient remained very irritable and agitated. He was hitting and kicking staff and nurses. He was refusing medications and remained very combative and agitated. He appears somewhat forgetful but he remained delusional and paranoid. He is not oriented to place and time. However he denies any auditory hallucinations. He denies any suicidal ideation or any homicidal ideation. He denies any drinking or any substance abuse. \\ Current Medications: Active Medications Generic Name Dose Route Start Last Admin Trade Name Freq PRN Reason Stop Dose Admin Albuterol/Ipratropium 3 ml 09/26/18 18:41 Duoneb 3 Mg/0.5 Mg (3 Ml) Ud INH RQ6 PRN Shortness of Breath Aspirin 81 mg 09/25/18 10:00 09/27/18 09:20 Aspirin Chewable PO 81 mg DAILY [facility] Administration Clopidogrel Bisulfate 75 mg 09/26/18 10:00 09/27/18 09:20 Plavix PO 75 mg DAILY [facility] Administration Donepezil HCl 5 mg 09/25/18 22:00 09/26/18 23:03 Aricept PO Not Given HS [facility] Enoxaparin Sodium 40 mg 09/25/18 22:00 09/27/18 09:20 Lovenox SC 40 mg Q12 [facility] Administration Finasteride 5 mg 09/25/18 10:00 09/27/18 09:19 Proscar PO 5 mg DAILY [facility] Administration Guaifenesin 600 mg 09/26/18 18:45 09/27/18 09:20 Mucinex La PO 600 mg BID [facility] Administration Sodium Chloride 1,000 mls @ 75 mls/hr 09/25/18 10:00 09/27/18 02:45 Sodium Chloride 0.9% IV Not Given .[id number] [facility] Piperacillin Sod/Tazobactam Sod 3.375 gm in 50 mls @ 200 mls/hr 09/25/18 10:00 09/27/18 09:20 Zosyn 3.375 Gm Iv Premix IVPB 200 mls/hr Q8H [facility] Administration Protocol Vancomycin/Sodium Chloride 1 gm in 200 mls @ 167 mls/hr 09/25/18 10:00 09/27/18 09:21 Vancomycin 1 Gm/Ns 200 Ml IVPB 09/30/18 10:01 167 mls/hr DAILY [facility] Administration Protocol Lorazepam 0.5 mg 09/27/18 10:15 Ativan IVP ONCE PRN Agitation Nicotine 1 patch 09/25/18 10:15 09/27/18 09:20 Nicoderm Cq TD 1 patch DAILY [facility] Administration Rosuvastatin Calcium 10 mg 09/27/18 22:00 Crestor PO HS [facility] Saccharomyces Boulardii 250 mg 09/25/18 10:15 09/27/18 09:20 Florastor PO 250 mg BID [facility] Administration Past Psychiatric History - Past Psychiatric History Previous Treatment History: None Pertinent Medical Hx (Current Medical&Sleep Prob, Allergies): Allergies Allergy/AdvReac Type Severity Reaction Status Date / Time No Known Allergies Allergy Verified 09/24/18 18:23 Finasteride [Proscar] 5 mg PO DAILY 09/24/18 Review of Systems - Review of Systems All systems: reviewed and no additional remarkable complaints except - Psychiatric Psychiatric: Anxiety, Irritability, Paranoia Mental Status Examination - Personal Presentation Personal Presentation: Looks stated age - Affect Affect: Constricted - Motor Activity Motor Activity: Psychomotor Agitation - Reliability in Providing Information Reliability in Providing Information: Poor, due to alteration in thoughts, Poor, due to altered mood - Speech Speech: Disorganized - Mood Mood: Anxious - Formal Thought Process Formal Thought Process: Delusions, Paranoia, Loosening of associations - Hallucinations/Delusions Delusions: Persecution - Obsessions/Compulsions Obsessions: No Compulsions: No - Cognitive Functions Orientation: Person Sensorium: Alert Attention/Concentration: Easily distracted Abstract Thinking: As evidence by abstract perception of proverbs Estimate of Intelligence: Below average Judgement: Imparied, as evidence by: Poor judgement, Imparied, as evidence by: Lack of insight into illness - Risk Risk: Diminished functioning - Strength & Assets Inventory Strength & Assets Inventory: Family support DSM 5 DX - DSM 5 DSM 5 Diagnosis: Delirium r/o Alzheimer's dementia with behavioral disturbances - Recommended/Plan of Treatment Treatment Recommendations and Plan of Treatment: Supportive therapy Psychoeducation Seroquel 25 mg PO BID Hydroxyzine 25 mg PO Q6 hr prn - Smoking Cessation Smoking Cessation Initiated: No
--- NOTE | 2018-09-27 13:07 | CP.PCM.PN ---
Subjective - Date & Time of Evaluation Date of Evaluation: 09/27/18 Time of Evaluation: 12:35 - Subjective Subjective: Patient examined at bedside, remains incontinent. Nursing reports pt continues to be agitated, yelling, threatening people, and refusing medications, IVs and procedures. Most recently, pt refused to complete an echo and an MRA. Pt re moni confused and irritated and is unwilling to provide more information; thus ROS unobtainable. Objective - Vital Signs/Intake and Output Vital Signs (last 24 hours): Temp Pulse Resp BP Pulse Ox 97.6 F 67 20 146/75 98 09/27/18 07:29 09/27/18 13:03 09/27/18 07:29 09/27/18 07:29 09/27/18 07:29 - Medications Medications: Current Medications Albuterol/Ipratropium (Duoneb 3 Mg/0.5 Mg (3 Ml) Ud) 3 ml INH RQ6 PRN PRN Reason: Shortness of Breath Aspirin (Aspirin Chewable) 81 mg PO DAILY [facility] Last Admin: 09/27/18 09:20 Dose: 81 mg Clopidogrel Bisulfate (Plavix) 75 mg PO DAILY [facility] Last Admin: 09/27/18 09:20 Dose: 75 mg Donepezil HCl (Aricept) 5 mg PO HS [facility] Last Admin: 09/26/18 23:03 Dose: Not Given Enoxaparin Sodium (Lovenox) 40 mg SC Q12 [facility] Last Admin: 09/27/18 09:20 Dose: 40 mg Finasteride (Proscar) 5 mg PO DAILY [facility] Last Admin: 09/27/18 09:19 Dose: 5 mg Guaifenesin (Mucinex La) 600 mg PO BID [facility] Last Admin: 09/27/18 09:20 Dose: 600 mg Sodium Chloride (Sodium Chloride 0.9%) 1,000 mls @ 75 mls/hr IV .[id number] [facility] Last Admin: 09/27/18 02:45 Dose: Not Given Piperacillin Sod/Tazobactam Sod (Zosyn 3.375 Gm Iv Premix) 3.375 gm in 50 mls @ 200 mls/hr IVPB Q8H [facility]; Protocol Last Admin: 09/27/18 09:20 Dose: 200 mls/hr Vancomycin/Sodium Chloride (Vancomycin 1 Gm/Ns 200 Ml) 1 gm in 200 mls @ 167 mls/hr IVPB DAILY [facility]; Protocol Stop: 09/30/18 10:01 Last Admin: 09/27/18 09:21 Dose: 167 mls/hr Lorazepam (Ativan) 0.5 mg IVP ONCE PRN PRN Reason: Agitation Last Admin: 09/27/18 11:38 Dose: 0.5 mg Nicotine (Nicoderm Cq) 1 patch TD DAILY [facility] Last Admin: 09/27/18 09:20 Dose: 1 patch Rosuvastatin Calcium (Crestor) 10 mg PO HS [facility] Saccharomyces Boulardii (Florastor) 250 mg PO BID [facility] Last Admin: 09/27/18 09:20 Dose: 250 mg - Labs Labs: 09/27/18 08:10 09/27/18 08:10 PT 10.0 SECONDS (9.7-12.2) 09/24/18 18:55 INR 0.9 09/24/18 18:55 APTT 28 SECONDS (21-34) 09/24/18 18:55 - Constitutional Appears: Non-toxic, No Acute Distress, Agitated, Cachectic - Head Exam Head Exam: ATRAUMATIC, NORMAL INSPECTION, NORMOCEPHALIC - Eye Exam Eye Exam: Normal appearance - ENT Exam ENT Exam: Mucous Membranes Dry, Normal Exam - Neck Exam Neck Exam: Normal Inspection - Respiratory Exam Respiratory Exam: NORMAL BREATHING PATTERN. absent: Respiratory Distress - Cardiovascular Exam Cardiovascular Exam: Bradycardia, REGULAR RHYTHM - GI/Abdominal Exam GI & Abdominal Exam: Soft. absent: Distended - Back Exam Back Exam: NORMAL INSPECTION - Neurological Exam Neurological Exam: Altered, Awake - Psychiatric Exam Psychiatric exam: Agitated - Skin Skin Exam: Dry, Intact, Normal Color, Warm Assessment and Plan - Assessment and Plan (Free Text) Assessment: 83 year old male w PMHx of bradycardia, dementia, glaucoma, [place] [facility] [place] for evaluation and treatment of AMS. Plan: -MRI brain(09/25): 2 tiny focal areas of mild restricted diffusion, in posterior temporoparietal cortices; both adjacent to areas of larger chronic infarcts. -f/u MRA head/neck -echo limited to lack of pt cooperation: EF 65-70% Hypertensive heart disease severe valvular borderline MVP mild mitral valve and tricuspid regurgitation -JOSE thursday -lipid panel, B12, folate, TSH all WNL -ASA, plavix, crestor -added seroquel 25mg hs for agitation Discussed w/ Dr. Brent Fernando, PGY-1
--- NOTE | 2018-09-27 14:50 | CARD ---
APPROVED REPORT Date of service: 09/27/2018 EXAM: Two-dimensional and M-mode echocardiogram with Doppler and color Doppler. Other Information Quality : GoodRhythm : Technically limited study due to UNCOOPERATIVE PATIENT INDICATION CVA/TIA Non STEMI 2D DIMENSIONS IVSd1.2 (0.7-1.1cm)LVDd3.7 (3.9-5.9cm) LVOT Diameter2.0 (1.8-2.4cm)PWd1.2 (0.7-1.1cm) LA Enivzg84 (18-58mL)LVDs1.9 (2.5-4.0cm) FS (%) 48.6 %LVEF (%)70.0 (>50%) LVEF (Smiley's)69.55 %IVC0.00 cm M-Mode DIMENSIONS Left Atrium (MM)4.37 (2.5-4.0cm)Aortic Root3.05 (2.2-3.7cm) Aortic Cusp Exc.0.90 (1.5-2.0cm) Aortic Valve AoV Peak Vikwmpbg134.5cm/sAoV VTI85.8cmAO Peak GR.73mmHg LVOT Peak Eeyhzprh052.1cm/sLVOT VTI25.52cmAO Mean GR.44mmHg DARYL (VMAX)0.45il3ATA (VTI)0.92xo0CK P 1/2 Syzb544fp Mitral Valve MV E Dlwaukqc03.0cm/sMV A Vktdieeh25.1cm/sE/A ratio0.9 TDI Lateral E' Peak V14.16cm/sMedial E' Peak V7.06cm/sE/Lateral E'4.0 E/Medial E'7.9 Tricuspid Valve TR Peak Qpweugpk214vc/sTR Peak Gr.81rmXmJAJW67rfBx LEFT VENTRICLE The left ventricle is normal size. There is mild concentric left ventricular hypertrophy. Left ventricle systolic function is normal. The Ejection Fraction is 65-70%. There is normal LV segmental wall motion. Tissue Doppler imaging reveals abnormal left ventricular diastolic dysfunction. RIGHT VENTRICLE The right ventricle is normal size. There is normal right ventricular wall thickness. The right ventricular systolic function is normal. ATRIA The left atrium is mildly dilated. The right atrium size is normal. The interatrial septum is intact with no evidence for an atrial septal defect. AORTIC VALVE The aortic valve is calcified and displays decreased opening. There is mild aortic regurgitation. Calculated aortic valve area is 0.72 cm2 with maximum pressure gradient of 73 mmHg and mean pressure gradient of 44 mmHg. There is severe valvular aortic stenosis. MITRAL VALVE The mitral valve is normal in structure. A borderline mitral valve prolapse is present. There is no mitral valve stenosis. Mitral regurgitation is mild. TRICUSPID VALVE The tricuspid valve is normal in structure. There is mild tricuspid regurgitation. Right ventricular systolic pressure is estimated at 30-40 mmHg. There is mild pulmonary hypertension. PULMONIC VALVE The pulmonic valve is not well visualized. There is no pulmonic valvular regurgitation. GREAT VESSELS The aortic root is normal in size. PERICARDIAL EFFUSION There is no significant pericardial effusion. <Conclusion> Left ventricle systolic function is normal. The Ejection Fraction is 65-70%. Hypertensive heart disease. Diastolic dysfunction. There is mild aortic regurgitation. There is severe valvular aortic stenosis. A borderline mitral valve prolapse is present. Mitral regurgitation is mild. There is mild tricuspid regurgitation. There is mild pulmonary hypertension. There is no pulmonic valvular regurgitation.
--- NOTE | 2018-09-27 20:56 | CARD ---
APPROVED REPORT Date of service: 09/25/2018 EKG Measurement Heart [id number] <Conclusion> Normal sinus rhythm Nonspecific ST and T wave abnormality Abnormal ECG
[2018-09-27 21:43] LABS: SQUAMOUS EPITHIAL < 1 /hpf (0-5); URINE BACTERIA RARE (<OCC); URINE BILIRUBIN NEGATIVE (NEGATIVE); URINE BLOOD NEGATIVE (NEGATIVE); URINE CLARITY Clear (Clear); URINE COLOR Yellow (YELLOW); URINE GLUCOSE (UA) NORMAL (Normal); URINE LEUKOCYTE ESTERASE NEG Leu/uL (Negative); URINE PROTEIN NEGATIVE (NEGATIVE); URINE URIC ACID CRYSTALS FEW /hpf (<OCC); URINE UROBILINOGEN NORMAL mg/dL (0.2-1.0)
[2018-09-28] MEDS: Piperacill/Tazo 3.375gm in Dex 3.375 GM/50 ML BAG IVPB SCH ×3 (02:52→17:24)
[2018-09-28] MEDS: Sodium Chloride 0.9% 1,000 ML IV SCH ×2 (05:29→20:00)
[2018-09-28] MEDS ORDERED: guaiFENesin 100 mg/5 ml Syrup UD PO ONE (06:00)
[2018-09-28 07:15] LABS: BASO # 0.1 K/uL (0.0-0.2); EOS # 0.2 K/uL (0.0-0.7); HEMOGLOBIN 10.8 g/dL (12.0-18.0); LYMPH # 1.1 K/uL (1.0-4.3); LYMPH % 20.3 % (20.0-40.0); MEAN CORPUSCULAR HEMOGLOBIN 28.2 pg (27.0-31.0); MEAN CORPUSCULAR HGB CONC 32.8 g/dL (33.0-37.0); MEAN PLATELET VOLUME 7.4 fL (7.2-11.7); MONO # 0.6 K/uL (0.0-0.8); MONO % 10.3 % (0.0-10.0); NEUT # 3.4 K/uL (1.8-7.0); NEUT % 64.4 % (50.0-75.0); RBC 3.85 Mil/uL (4.40-5.90); RED CELL DISTRIBUTION WIDTH 18.5 % (11.5-14.5); WHITE BLOOD COUNT 5.4 K/uL (4.8-10.8)
[2018-09-28 07:42] LABS: ALB/GLOB RATIO 0.8 (1.0-2.1); ALBUMIN 2.4 g/dL (3.5-5.0); ALT/SGPT 20 U/L (21-72); AST/SGOT 38 U/L (17-59); BLOOD UREA NITROGEN 19 mg/dL (9-20); GFR NON-AFRICAN AMERICAN > 60
[2018-09-28] MEDS: Saccharomyces Boulardi 250 mg Cap PO SCH ×2 (09:27→17:25)
[2018-09-28] MEDS: guaiFENesin 600 mg ER Tab PO SCH ×2 (09:28→17:25)
[2018-09-28] MEDS: Enoxaparin 40 mg Syringe SC SCH ×2 (09:28→22:24)
[2018-09-28] MEDS: Vancomycin 1 gm/NS 200 ml 1 GM/200 ML BAG IVPB SCH (10:50)
--- NOTE | 2018-09-28 12:48 | MRI ---
Date of service: 09/27/2018 PROCEDURE: Magnetic Resonance Angiography Brain HISTORY: stroke, dizziness COMPARISON: None available. TECHNIQUE: 3D time of flight MR angiography of the intracranial arteries was performed. Rotating maximum intensity projection images were generated. FINDINGS: INTERNAL CAROTID ARTERIES: Unremarkable. The skull base, petrous, cavernous and supraclinoid segments are bilaterally widely patient. ANTERIOR CEREBRAL ARTERIES: Unremarkable. A1 and A2 segments are widely patent. Smaller distal branches unremarkable, as visualized. MIDDLE CEREBRAL ARTERIES: Unremarkable. M1 and M2 segments are widely patent. Perisylvian branches grossly symmetric. POSTERIOR CIRCULATION: Basilar Artery: Mildly ectatic but patent basilar artery. Distal Vertebral Arteries: Right vertebrobasilar dominance with mild hypoplasia of the distal left vertebral artery. Ectatic bilateral distal vertebral arteries. Posterior Cerebral Arteries: Unremarkable. Posterior Inferior Cerebellar Arteries: Unremarkable. ANEURYSM/ VASCULAR MALFORMATIONS: None. OTHER FINDINGS: None. IMPRESSION: No occlusion or significant stenosis is seen related to the [id number] arterial anatomy up to tertiary branches. Mildly hypoplastic left vertebral artery with right dominant vertebrobasilar circulation.
--- NOTE | 2018-09-28 18:00 | CP.PCM.PN ---
<Rossy Fernando - Last Filed: 09/28/18 18:44> Subjective - Date & Time of Evaluation Date of Evaluation: 09/28/18 Time of Evaluation: 11:40 - Subjective Subjective: Patient examined at bedside with 1:1 supervision in room. Interviewed with help of supervisor sterile processing, ID # [id number]. No acute events overnight. Patient reports continued cough. When questioned about his suicidal gestures, pt reports they were threats he did not intend to act on, he was just upset he was not allowed to leave. Pt reports he is admitted for treatment of something in his brain, but cannot recall what exactly. Objective - Vital Signs/Intake and Output Vital Signs (last 24 hours): Temp Pulse Resp BP Pulse Ox 97.8 F 60 20 130/77 96 09/28/18 15:00 09/28/18 15:00 09/28/18 15:00 09/28/18 15:00 09/28/18 15:00 - Medications Medications: Current Medications Albuterol/Ipratropium (Duoneb 3 Mg/0.5 Mg (3 Ml) Ud) 3 ml INH RQ6 PRN PRN Reason: Shortness of Breath Aspirin (Aspirin Chewable) 81 mg PO DAILY [facility] Last Admin: 09/28/18 09:27 Dose: 81 mg Clopidogrel Bisulfate (Plavix) 75 mg PO DAILY [facility] Last Admin: 09/28/18 09:27 Dose: 75 mg Donepezil HCl (Aricept) 5 mg PO HS [facility] Last Admin: 09/27/18 21:24 Dose: 5 mg Enoxaparin Sodium (Lovenox) 40 mg SC Q12 [facility] Last Admin: 09/28/18 09:28 Dose: 40 mg Finasteride (Proscar) 5 mg PO DAILY [facility] Last Admin: 09/28/18 09:28 Dose: 5 mg Guaifenesin (Mucinex La) 600 mg PO BID [facility] Last Admin: 09/28/18 17:25 Dose: 600 mg Sodium Chloride (Sodium Chloride 0.9%) 1,000 mls @ 75 mls/hr IV .[id number] [facility] Last Admin: 09/28/18 05:29 Dose: Not Given Piperacillin Sod/Tazobactam Sod (Zosyn 3.375 Gm Iv Premix) 3.375 gm in 50 mls @ 200 mls/hr IVPB Q8H [facility]; Protocol Last Admin: 09/28/18 17:24 Dose: 200 mls/hr Vancomycin/Sodium Chloride (Vancomycin 1 Gm/Ns 200 Ml) 1 gm in 200 mls @ 167 mls/hr IVPB DAILY [facility]; Protocol Stop: 09/30/18 10:01 Last Admin: 09/28/18 10:50 Dose: 167 mls/hr Lorazepam (Ativan) 0.5 mg IVP ONCE PRN PRN Reason: Agitation Last Admin: 09/27/18 11:38 Dose: 0.5 mg Nicotine (Nicoderm Cq) 1 patch TD DAILY [facility] Last Admin: 09/28/18 09:28 Dose: 1 patch Quetiapine Fumarate (Seroquel) 25 mg PO HS [facility] Last Admin: 09/27/18 21:24 Dose: 25 mg Rosuvastatin Calcium (Crestor) 10 mg PO HS [facility] Last Admin: 09/27/18 21:24 Dose: 10 mg Saccharomyces Boulardii (Florastor) 250 mg PO BID [facility] Last Admin: 09/28/18 17:25 Dose: 250 mg - Labs Labs: 09/28/18 06:57 09/28/18 06:57 PT 10.0 SECONDS (9.7-12.2) 09/24/18 18:55 INR 0.9 09/24/18 18:55 APTT 28 SECONDS (21-34) 09/24/18 18:55 - Additional Findings Additional findings: - Constitutional Appears: Non-toxic, No Acute Distress - Head Exam Head Exam: ATRAUMATIC, NORMAL INSPECTION, NORMOCEPHALIC - Eye Exam Eye Exam: EOMI, Normal appearance - ENT Exam ENT Exam: Mucous Membranes Moist - Respiratory Exam Respiratory Exam: Decreased Breath Sounds, Rhonchi, NORMAL BREATHING PATTERN. absent: Accessory Muscle Use, Rales, Wheezes - Cardiovascular Exam Cardiovascular Exam: REGULAR RHYTHM, +S1, +S2, Murmur - GI/Abdominal Exam GI & Abdominal Exam: Soft. absent: Guarding, Rigid, Tenderness - Extremities Exam Extremities Exam: Normal Inspection. absent: Calf Tenderness - Neurological Exam Neurological Exam: Alert, Awake (Oriented to person and time) - Psychiatric Exam Psychiatric exam: Suicidal Ideation - Skin Skin Exam: Dry, Normal Color, Warm Assessment and Plan - Assessment and Plan (Free Text) Assessment: 83 year old male w PMHx of bradycardia, dementia, glaucoma, [place] [facility] [place] for evaluation and treatment of AMS. Plan: CVA -MRI brain(09/25): 2 tiny focal areas of mild restricted diffusion, in posterior temporoparietal cortices; both adjacent to areas of larger chronic infarcts. -MRA head(09/27): no occlusive disease -neuro consult, Dr. Kennedy r/o cardiac origin of ischemic CVA -echo limited to lack of pt cooperation: EF 65-70% Hypertensive heart disease severe valvular borderline MVP mild mitral valve and tricuspid regurgitation -JOSE thursday NPO at midnight ACS -trop positive x2 -Aortic stenosis, further workup needed per cardio, Dr. Lujan -lipid panel, B12, folate, TSH all WNL -ASA, plavix, crestor PNA -IV Abx, zosyn, vanc -f/u am random vanc -duonebs q6 prn -mucinex Dementia -aricept 5mg -seroquel 25mg hs for agitation -1:1 Ppx -lovenox Case discussed with Dr. Rodriguez -Rossy Fernando, PGY-1 <Renetta Rodriguez V - Last Filed: 10/17/18 17:34> Objective - Vital Signs/Intake and Output Vital Signs (last 24 hours): Temp Pulse Resp BP Pulse Ox 97.8 F 66 20 143/80 100 10/15/18 15:58 10/15/18 15:58 10/15/18 15:58 10/15/18 15:58 10/15/18 15:58 - Labs Labs: 10/15/18 07:55 10/15/18 07:56 PT 14.8 SECONDS (9.7-12.2) H 10/11/18 12:37 INR 1.4 10/11/18 12:37 APTT 33 SECONDS (21-34) 10/11/18 12:37 Attending/Attestation - Attestation I have personally seen and examined this patient.: Yes I have fully participated in the care of the patient.: Yes I have reviewed all pertinent clinical information, including history, physical exam and plan: Yes
--- NOTE | 2018-09-28 20:10 | CP.PCM.PN ---
Subjective - Date & Time of Evaluation Date of Evaluation: 09/28/18 Time of Evaluation: 20:09 - Subjective Subjective: 83 y/o male s/p CVA Appears comfortable now Denies chets pain Patient 1:1 Physical Exam - Head Exam Head Exam: NORMOCEPHALIC - Neck Exam Neck exam: Positive for: Normal Inspection - Respiratory Exam Respiratory Exam: NORMAL BREATHING PATTERN - Cardiovascular Exam Cardiovascular Exam: REGULAR RHYTHM, Systolic Murmur 4/6 - Extremities Exam Extremities exam: Positive for: normal inspection Assessment & Plan (1) ACS (acute coronary syndrome) Assessment and Plan: Positive troponin, etiology ?. exam suggestive of Aortic stenosis. Obtain old record from Primary. Echocardiogram and Further management accordingly. Status: Acute (2) Ischemic stroke Assessment and Plan: Work-up in progress and further management according to neurology. Status: Acute For JOSE 09/29 for posiible PFO by ECHO (3) Severe Assessment and Plan: Once cleared by neurology will perform cardiac cat and TVR Status: Acute TIA for JOSE tomorrow if family agreeable Objective - Vital Signs/Intake and Output Vital Signs (last 24 hours): Temp Pulse Resp BP Pulse Ox 97.8 F 60 20 130/77 96 09/28/18 15:00 09/28/18 15:00 09/28/18 15:00 09/28/18 15:00 09/28/18 15:00 - Medications Medications: Current Medications Albuterol/Ipratropium (Duoneb 3 Mg/0.5 Mg (3 Ml) Ud) 3 ml INH RQ6 PRN PRN Reason: Shortness of Breath Aspirin (Aspirin Chewable) 81 mg PO DAILY [facility] Last Admin: 09/28/18 09:27 Dose: 81 mg Clopidogrel Bisulfate (Plavix) 75 mg PO DAILY [facility] Last Admin: 09/28/18 09:27 Dose: 75 mg Donepezil HCl (Aricept) 5 mg PO HS [facility] Last Admin: 09/27/18 21:24 Dose: 5 mg Enoxaparin Sodium (Lovenox) 40 mg SC Q12 [facility] Last Admin: 09/28/18 09:28 Dose: 40 mg Finasteride (Proscar) 5 mg PO DAILY [facility] Last Admin: 09/28/18 09:28 Dose: 5 mg Guaifenesin (Mucinex La) 600 mg PO BID [facility] Last Admin: 09/28/18 17:25 Dose: 600 mg Sodium Chloride (Sodium Chloride 0.9%) 1,000 mls @ 75 mls/hr IV .[id number] [facility] Last Admin: 09/28/18 05:29 Dose: Not Given Piperacillin Sod/Tazobactam Sod (Zosyn 3.375 Gm Iv Premix) 3.375 gm in 50 mls @ 200 mls/hr IVPB Q8H [facility]; Protocol Last Admin: 09/28/18 17:24 Dose: 200 mls/hr Vancomycin/Sodium Chloride (Vancomycin 1 Gm/Ns 200 Ml) 1 gm in 200 mls @ 167 mls/hr IVPB DAILY [facility]; Protocol Stop: 09/30/18 10:01 Last Admin: 09/28/18 10:50 Dose: 167 mls/hr Lorazepam (Ativan) 0.5 mg IVP ONCE PRN PRN Reason: Agitation Last Admin: 09/27/18 11:38 Dose: 0.5 mg Nicotine (Nicoderm Cq) 1 patch TD DAILY [facility] Last Admin: 09/28/18 09:28 Dose: 1 patch Quetiapine Fumarate (Seroquel) 25 mg PO HS [facility] Last Admin: 09/27/18 21:24 Dose: 25 mg Rosuvastatin Calcium (Crestor) 10 mg PO HS [facility] Last Admin: 09/27/18 21:24 Dose: 10 mg Saccharomyces Boulardii (Florastor) 250 mg PO BID [facility] Last Admin: 09/28/18 17:25 Dose: 250 mg - Labs Labs: 09/28/18 06:57 09/28/18 06:57 PT 10.0 SECONDS (9.7-12.2) 09/24/18 18:55 INR 0.9 09/24/18 18:55 APTT 28 SECONDS (21-34) 09/24/18 18:55
[2018-09-29] MEDS: Piperacill/Tazo 3.375gm in Dex 3.375 GM/50 ML BAG IVPB SCH ×3 (01:55→17:47)
[2018-09-29] MEDS: Sodium Chloride 0.9% 1,000 ML IV SCH ×2 (07:40→11:10)
--- NOTE | 2018-09-29 07:47 | CP.PCM.PN ---
<Chrystal Moreno - Last Filed: 09/29/18 17:47> Subjective - Date & Time of Evaluation Date of Evaluation: 09/29/18 Time of Evaluation: 07:47 - Subjective Subjective: Medicine Progress Note - Dr Alexander's Service covering for Dr Norris Patient seen and examined at bedside. Per nursing no acute events overnight. Patient is doing well, offers no complaints at this time. Admits to still having cough. He is NPO for JOSE this morning. Denies headaches, dizziness, cp, palpitations, sob, abdominal pain, urinary symptoms. Objective - Vital Signs/Intake and Output Vital Signs (last 24 hours): Temp Pulse Resp BP Pulse Ox 97.8 F 55 L 20 144/77 97 09/29/18 07:00 09/29/18 07:00 09/29/18 07:00 09/29/18 07:00 09/29/18 07:00 - Medications Medications: Current Medications Albuterol/Ipratropium (Duoneb 3 Mg/0.5 Mg (3 Ml) Ud) 3 ml INH RQ6 PRN PRN Reason: Shortness of Breath Aspirin (Aspirin Chewable) 81 mg PO DAILY [facility] Last Admin: 09/28/18 09:27 Dose: 81 mg Clopidogrel Bisulfate (Plavix) 75 mg PO DAILY [facility] Last Admin: 09/28/18 09:27 Dose: 75 mg Donepezil HCl (Aricept) 5 mg PO HS [facility] Last Admin: 09/28/18 22:24 Dose: 5 mg Enoxaparin Sodium (Lovenox) 40 mg SC Q12 [facility] Last Admin: 09/28/18 22:24 Dose: 40 mg Finasteride (Proscar) 5 mg PO DAILY [facility] Last Admin: 09/28/18 09:28 Dose: 5 mg Guaifenesin (Mucinex La) 600 mg PO BID [facility] Last Admin: 09/28/18 17:25 Dose: 600 mg Sodium Chloride (Sodium Chloride 0.9%) 1,000 mls @ 75 mls/hr IV .[id number] [facility] Last Admin: 09/28/18 20:00 Dose: 75 mls/hr Piperacillin Sod/Tazobactam Sod (Zosyn 3.375 Gm Iv Premix) 3.375 gm in 50 mls @ 200 mls/hr IVPB Q8H [facility]; Protocol Last Admin: 09/29/18 01:55 Dose: 200 mls/hr Vancomycin/Sodium Chloride (Vancomycin 1 Gm/Ns 200 Ml) 1 gm in 200 mls @ 167 mls/hr IVPB DAILY [facility]; Protocol Stop: 09/30/18 10:01 Last Admin: 09/28/18 10:50 Dose: 167 mls/hr Lorazepam (Ativan) 0.5 mg IVP ONCE PRN PRN Reason: Agitation Last Admin: 09/27/18 11:38 Dose: 0.5 mg Nicotine (Nicoderm Cq) 1 patch TD DAILY [facility] Last Admin: 09/28/18 09:28 Dose: 1 patch Quetiapine Fumarate (Seroquel) 25 mg PO HS [facility] Last Admin: 09/28/18 22:25 Dose: 25 mg Rosuvastatin Calcium (Crestor) 10 mg PO HS [facility] Last Admin: 09/28/18 22:25 Dose: 10 mg Saccharomyces Boulardii (Florastor) 250 mg PO BID [facility] Last Admin: 09/28/18 17:25 Dose: 250 mg - Labs Labs: 09/28/18 06:57 09/28/18 06:57 PT 10.0 SECONDS (9.7-12.2) 09/24/18 18:55 INR 0.9 09/24/18 18:55 APTT 28 SECONDS (21-34) 09/24/18 18:55 - Constitutional Appears: Non-toxic, No Acute Distress - Head Exam Head Exam: ATRAUMATIC, NORMAL INSPECTION, NORMOCEPHALIC - Eye Exam Eye Exam: Normal appearance - ENT Exam ENT Exam: Mucous Membranes Moist - Neck Exam Neck Exam: Full ROM - Respiratory Exam Respiratory Exam: Decreased Breath Sounds, Rhonchi, NORMAL BREATHING PATTERN. absent: Rales, Wheezes - Cardiovascular Exam Cardiovascular Exam: REGULAR RHYTHM, +S1, +S2 - GI/Abdominal Exam GI & Abdominal Exam: Soft, Normal Bowel Sounds. absent: Guarding, Rigid, Tenderness - Extremities Exam Extremities Exam: Full ROM. absent: Calf Tenderness - Neurological Exam Neurological Exam: Alert, Awake, Oriented x3 - Psychiatric Exam Psychiatric exam: Normal Affect, Normal Mood - Skin Skin Exam: Dry, Normal Color, Warm Assessment and Plan - Assessment and Plan (Free Text) Assessment: A/P: Patient is a 83 year old M who was admitted for Altered mental status Acute CVA -CVA possibly embolic in nature -Continue ASA 81mg PO daily, Plavix 75mg PO daily -Continue Crestor 10mg PO HS -JOSE cancelled, echo with bubble study completed, official read pending -Patient unable to complete MRA neck -Patient cleared from neurological standpoint -Neurology on consult, Dr Manrique, help appreciated Imaging: -CT head: showed multiple old infarcts; no acute infarct seen; please refer to full report -Brain MRI:There are 2 tiny focal areas of mild restricted diffusion, both of which are located in the posterior temporoparietal cortices left slightly larger and the slightly more anterior in location on the right side. Note that the both of these foci are adjacent to, abutting areas of larger chronic infarcts left larger than right... Both of these foci could represent small acute/subacute areas of reversible ischemia (TIAs) or tiny acute/subacute infarcts. Note that a small components of shine through artifact cannot be excluded. No additional focal areas of abnormal restricted diffusion identified. Chronic confluent white matter ischemic changes with more discrete bifrontal infarcts left larger than right. 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 Lujan; cardiology; thank you for your help Pneumonia -Afebrile, no leukocytosis, procalcitonin was low -CXR showed consolidation in right middle lobes and right lower lobe, patchy infiltrate in left lower lobe (see full report) -Antibiotics: Zosyn 3.375 Q8H (started 09/25/18) and Vancomycin 1g Q24H (started 09/25/18) -Continue Florastor 250mg PO BID -Continue Mucinex 600mg PO BID, Duonebs 3ml INH RQ6H PRN shortness of breath -Tessalon Pearles 100mg PO TID added for cough suppression Suicidal Ideation -Patient placed on 1:1 for safety -Psych on consult, Dr Brown, help appreciated Hx of Dementia -Donepizil 5mg daily -Continue Seroquel 25mg PO HS for agitation Hx of BPH -Continue Finasteride 5mg PO daily Hx of bacteremia; treated at [facility] [place] 3mo ago -Continue Vanc 1g Q24h and Zosyn 3.375 Q8H -Blood cultures (09/24/18): no growth after 24 hours X 2 Hyperglycemia -Hemoglobin a1c 5.1 GI/DVT ppx: -Lovenox therapeutic 40mg SC BID -hx of falls; fall precautions -PT/OT eval Plan discussed and seen with Dr. Dianna Moreno DO PGY-2 <Ashkan Alexander - Last Filed: 10/10/18 13:03> Objective - Vital Signs/Intake and Output Vital Signs (last 24 hours): Temp Pulse Resp BP Pulse Ox 97.7 F 98 H 20 104/72 94 L 10/10/18 07:00 10/10/18 09:59 10/10/18 07:00 10/10/18 07:00 10/10/18 07:00 Intake and Output: 10/10/18 10/10/18 06:59 18:59 Intake Total 300 Balance 300 - Medications Medications: Current Medications Acetaminophen (Tylenol 325mg Tab) 650 mg PO Q6 PRN PRN Reason: Fever >100.4 F Last Admin: 10/02/18 00:14 Dose: 650 mg Albuterol/Ipratropium (Duoneb 3 Mg/0.5 Mg (3 Ml) Ud) 3 ml INH RQ6 [facility] Last Admin: 10/10/18 07:55 Dose: 3 ml Aspirin (Aspirin Chewable) 81 mg PO DAILY [facility] Last Admin: 10/10/18 10:34 Dose: 81 mg Benzonatate (Tessalon Perles) 100 mg PO TID [facility] Last Admin: 10/10/18 10:34 Dose: 100 mg Brimonidine Tartrate (Alphagan 0.2% Opht) 0 ml OU DAILY [facility] Last Admin: 10/10/18 10:35 Dose: 1 drop Donepezil HCl (Aricept) 5 mg PO HS [facility] Last Admin: 10/09/18 22:14 Dose: 5 mg Finasteride (Proscar) 5 mg PO DAILY [facility] Last Admin: 10/10/18 10:34 Dose: 5 mg Guaifenesin (Mucinex La) 600 mg PO BID [facility] Last Admin: 10/10/18 10:34 Dose: 600 mg Insulin Aspart (Novolog) 0 unit SC ACHS [facility]; Protocol Last Admin: 10/10/18 08:00 Dose: Not Given Latanoprost (Xalatan Opht) 0 ml OU HS [facility] Last Admin: 10/09/18 22:00 Dose: Not Given Lorazepam (Ativan) 0.5 mg IVP ONCE PRN PRN Reason: Agitation Last Admin: 10/04/18 00:14 Dose: 0.5 mg Lorazepam (Ativan) 0.5 mg IVP Q4H PRN PRN Reason: Anxiety Last Admin: 10/04/18 21:12 Dose: 0.5 mg Nicotine (Nicoderm Cq) 1 patch TD DAILY [facility] Last Admin: 10/10/18 10:34 Dose: 1 patch Quetiapine Fumarate (Seroquel) 25 mg PO BID PRN PRN Reason: Agitation Last Admin: 10/04/18 20:36 Dose: 25 mg Rosuvastatin Calcium (Crestor) 10 mg PO HS [facility] Last Admin: 10/08/18 22:08 Dose: 10 mg Saccharomyces Boulardii (Florastor) 250 mg PO BID [facility] Last Admin: 10/10/18 10:40 Dose: 250 mg Verapamil HCl (Calan Sr Tab) 180 mg PO DAILY [facility] Last Admin: 10/10/18 10:33 Dose: 180 mg - Labs Labs: 10/08/18 11:53 10/08/18 11:53 PT 10.0 SECONDS (9.7-12.2) 09/24/18 18:55 INR 0.9 09/24/18 18:55 APTT 28 SECONDS (21-34) 09/24/18 18:55 Attending/Attestation - Attestation I have personally seen and examined this patient.: Yes I have fully participated in the care of the patient.: Yes I have reviewed all pertinent clinical information, including history, physical exam and plan: Yes Notes (Text): 10/10/18 13:03 This is a late entry. Care of this patient was gone over in detail with resident Dr. Moreno. Ashkan Alexander D.O.
[2018-09-29 08:00] LABS: BASO # 0.1 K/uL (0.0-0.2); EOS # 0.2 K/uL (0.0-0.7); EOS % 3.3 % (0.0-4.0); HEMOGLOBIN 11.4 g/dL (12.0-18.0); LYMPH # 1.2 K/uL (1.0-4.3); LYMPH % 21.3 % (20.0-40.0); MEAN CELL VOLUME 86.1 fL (80.0-94.0); MEAN CORPUSCULAR HEMOGLOBIN 28.1 pg (27.0-31.0); MEAN CORPUSCULAR HGB CONC 32.6 g/dL (33.0-37.0); MEAN PLATELET VOLUME 7.5 fL (7.2-11.7); MONO # 0.6 K/uL (0.0-0.8); MONO % 10.5 % (0.0-10.0); NEUT # 3.7 K/uL (1.8-7.0); NEUT % 63.9 % (50.0-75.0); NRBC % 0.1 % (0.0-2.0); RBC 4.06 Mil/uL (4.40-5.90); RED CELL DISTRIBUTION WIDTH 18.5 % (11.5-14.5); WHITE BLOOD COUNT 5.8 K/uL (4.8-10.8)
[2018-09-29 08:32] LABS: ALB/GLOB RATIO 0.8 (1.0-2.1); ALBUMIN 2.6 g/dL (3.5-5.0); ALT/SGPT 21 U/L (21-72); AST/SGOT 36 U/L (17-59); BLOOD UREA NITROGEN 17 mg/dL (9-20); CALCIUM 8.2 mg/dl (8.6-10.4); GFR NON-AFRICAN AMERICAN > 60
--- NOTE | 2018-09-29 10:29 | CP.PCM.PN ---
<Rossy Fernando - Last Filed: 09/29/18 14:37> Subjective - Date & Time of Evaluation Date of Evaluation: 09/29/18 Time of Evaluation: 10:05 - Subjective Subjective: Patient examined at bedside with 1:1 supervision in room. No acute events overnight. Nursing reports patient has been cooperative and compliant, not agitated or threatening. Patient denies complaint, no chest pain, SOB, abdominal pain, nausea. Objective - Vital Signs/Intake and Output Vital Signs (last 24 hours): Temp Pulse Resp BP Pulse Ox 97.8 F 55 L 20 144/77 97 09/29/18 07:00 09/29/18 07:00 09/29/18 07:00 09/29/18 07:00 09/29/18 07:00 - Medications Medications: Current Medications Albuterol/Ipratropium (Duoneb 3 Mg/0.5 Mg (3 Ml) Ud) 3 ml INH RQ6 PRN PRN Reason: Shortness of Breath Aspirin (Aspirin Chewable) 81 mg PO DAILY [facility] Last Admin: 09/28/18 09:27 Dose: 81 mg Clopidogrel Bisulfate (Plavix) 75 mg PO DAILY [facility] Last Admin: 09/28/18 09:27 Dose: 75 mg Donepezil HCl (Aricept) 5 mg PO HS [facility] Last Admin: 09/28/18 22:24 Dose: 5 mg Enoxaparin Sodium (Lovenox) 40 mg SC Q12 [facility] Last Admin: 09/28/18 22:24 Dose: 40 mg Finasteride (Proscar) 5 mg PO DAILY [facility] Last Admin: 09/28/18 09:28 Dose: 5 mg Guaifenesin (Mucinex La) 600 mg PO BID [facility] Last Admin: 09/28/18 17:25 Dose: 600 mg Sodium Chloride (Sodium Chloride 0.9%) 1,000 mls @ 75 mls/hr IV .[id number] [facility] Last Admin: 09/28/18 20:00 Dose: 75 mls/hr Piperacillin Sod/Tazobactam Sod (Zosyn 3.375 Gm Iv Premix) 3.375 gm in 50 mls @ 200 mls/hr IVPB Q8H [facility]; Protocol Last Admin: 09/29/18 01:55 Dose: 200 mls/hr Vancomycin/Sodium Chloride (Vancomycin 1 Gm/Ns 200 Ml) 1 gm in 200 mls @ 167 mls/hr IVPB DAILY [facility]; Protocol Stop: 09/30/18 10:01 Last Admin: 09/28/18 10:50 Dose: 167 mls/hr Lorazepam (Ativan) 0.5 mg IVP ONCE PRN PRN Reason: Agitation Last Admin: 09/27/18 11:38 Dose: 0.5 mg Nicotine (Nicoderm Cq) 1 patch TD DAILY [facility] Last Admin: 09/28/18 09:28 Dose: 1 patch Quetiapine Fumarate (Seroquel) 25 mg PO HS [facility] Last Admin: 09/28/18 22:25 Dose: 25 mg Rosuvastatin Calcium (Crestor) 10 mg PO HS [facility] Last Admin: 09/28/18 22:25 Dose: 10 mg Saccharomyces Boulardii (Florastor) 250 mg PO BID [facility] Last Admin: 09/28/18 17:25 Dose: 250 mg - Labs Labs: 09/29/18 07:34 09/29/18 07:34 PT 10.0 SECONDS (9.7-12.2) 09/24/18 18:55 INR 0.9 09/24/18 18:55 APTT 28 SECONDS (21-34) 09/24/18 18:55 - Constitutional Appears: Non-toxic, No Acute Distress, Cachectic - Head Exam Head Exam: ATRAUMATIC, NORMAL INSPECTION, NORMOCEPHALIC - Eye Exam Eye Exam: EOMI, Normal appearance Pupil Exam: NORMAL ACCOMODATION, PERRL - ENT Exam ENT Exam: Mucous Membranes Moist, Normal Exam - Neck Exam Neck Exam: Normal Inspection - Respiratory Exam Respiratory Exam: NORMAL BREATHING PATTERN. absent: Respiratory Distress - Cardiovascular Exam Cardiovascular Exam: Bradycardia, REGULAR RHYTHM, +S1, +S2 - GI/Abdominal Exam GI & Abdominal Exam: Soft. absent: Distended - Extremities Exam Extremities Exam: Normal Capillary Refill, Normal Inspection. absent: Calf Tenderness, Pedal Edema - Neurological Exam Neurological Exam: Alert, Awake Neuro motor strength exam: Left Upper Extremity: 5, Right Upper Extremity: 5, Left Lower Extremity: 5, Right Lower Extremity: 5 Additional comments: No motor or sensory deficit noted - Psychiatric Exam Psychiatric exam: Normal Affect, Normal Mood - Skin Skin Exam: Dry, Intact, Normal Color, Warm Assessment and Plan - Assessment and Plan (Free Text) Assessment: 83 year old male admitted for evaluation of AMS Plan: No acute findings, patient neurologically stable to undergo further cardiac workup as needed. -MRI brain(09/25): 2 tiny focal areas of mild restricted diffusion, in posterior temporoparietal cortices; both adjacent to areas of larger chronic infarcts. -MRA head(09/28): no occlusion or significant stenosis of [place] arterial anatomy. 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 Samaniego -Rossy Fernando, PGY-1 <Daniel Samaniego - Last Filed: 10/03/18 13:48> Objective - Vital Signs/Intake and Output Vital Signs (last 24 hours): Temp Pulse Resp BP Pulse Ox 97.7 F 75 27 H 106/56 L 93 L 10/03/18 12:00 10/03/18 13:10 10/03/18 12:22 10/03/18 12:22 10/03/18 12:22 Intake and Output: 10/03/18 10/03/18 06:59 18:59 Intake Total 1080 1685 Output Total 300 Balance 780 1685 - Medications Medications: Current Medications Acetaminophen (Tylenol 325mg Tab) 650 mg PO Q6 PRN PRN Reason: Fever >100.4 F Last Admin: 10/02/18 00:14 Dose: 650 mg Albuterol/Ipratropium (Duoneb 3 Mg/0.5 Mg (3 Ml) Ud) 3 ml INH RQ6 PRN PRN Reason: Cough Last Admin: 10/03/18 13:08 Dose: 3 ml Apixaban (Eliquis) 2.5 mg PO BID [facility] Stop: 10/10/18 10:01 Last Admin: 10/03/18 09:33 Dose: 2.5 mg Aspirin (Aspirin Chewable) 81 mg PO DAILY [facility] Last Admin: 10/03/18 09:31 Dose: 81 mg Benzonatate (Tessalon Perles) 100 mg PO TID [facility] Last Admin: 10/03/18 09:51 Dose: 100 mg Brimonidine Tartrate (Alphagan 0.2% Opht) 0 ml OU DAILY [facility] Last Admin: 10/03/18 09:31 Dose: 1 drop Clopidogrel Bisulfate (Plavix) 75 mg PO DAILY [facility] Last Admin: 10/03/18 09:31 Dose: 75 mg Donepezil HCl (Aricept) 5 mg PO HS [facility] Last Admin: 10/02/18 22:30 Dose: 5 mg Finasteride (Proscar) 5 mg PO DAILY [facility] Last Admin: 10/03/18 09:31 Dose: 5 mg Guaifenesin (Mucinex La) 600 mg PO BID [facility] Last Admin: 10/03/18 09:50 Dose: 600 mg Piperacillin Sod/Tazobactam Sod (Zosyn 3.375 Gm Iv Premix) 3.375 gm in 50 mls @ 100 mls/hr IVPB Q6H [facility]; Protocol Last Admin: 10/03/18 09:35 Dose: 100 mls/hr Doxycycline Hyclate 100 mg/ (Sodium Chloride) 100 mls @ 100 mls/hr IVPB Q12H [facility]; Protocol Last Admin: 10/03/18 09:30 Dose: 100 mls/hr Diltiazem HCl 125 mg/ Dextrose 125 mls @ 5 mls/hr IV .Q24H [facility]; Protocol Last Titration: 10/03/18 11:00 Dose: 0 mg/hr, 0 mls/hr Insulin Aspart (Novolog) 0 unit SC ACHS [facility]; Protocol Last Admin: 10/03/18 12:43 Dose: 1 unit Latanoprost (Xalatan Opht) 0 ml OU HS [facility] Last Admin: 10/02/18 23:04 Dose: 2.5 ml Lorazepam (Ativan) 0.5 mg IVP ONCE PRN PRN Reason: Agitation Last Admin: 09/29/18 11:24 Dose: 0.5 mg Nicotine (Nicoderm Cq) 1 patch TD DAILY [facility] Last Admin: 10/03/18 09:50 Dose: 1 patch Quetiapine Fumarate (Seroquel) 25 mg PO BID PRN PRN Reason: Agitation Rosuvastatin Calcium (Crestor) 10 mg PO HS [facility] Last Admin: 10/02/18 23:03 Dose: 10 mg Saccharomyces Boulardii (Florastor) 250 mg PO BID [facility] Last Admin: 10/03/18 09:30 Dose: 250 mg Verapamil HCl (Calan Sr Tab) 180 mg PO DAILY [facility] Last Admin: 10/03/18 09:54 Dose: 180 mg - Labs Labs: 10/03/18 06:05 10/03/18 06:05 PT 10.0 SECONDS (9.7-12.2) 09/24/18 18:55 INR 0.9 09/24/18 18:55 APTT 28 SECONDS (21-34) 09/24/18 18:55 Assessment and Plan - Assessment and Plan (Free Text) Assessment: I examined the patient independently and agree with the assessment and plan. Dr. samaniego
[2018-09-29] MEDS: Enoxaparin 40 mg Syringe SC SCH ×3 (11:16→22:30)
[2018-09-29] MEDS: guaiFENesin 600 mg ER Tab PO SCH ×2 (11:17→17:47)
[2018-09-29] MEDS: Saccharomyces Boulardi 250 mg Cap PO SCH ×2 (11:17→17:47)
[2018-09-29] MEDS: Vancomycin 1 gm/NS 200 ml 1 GM/200 ML BAG IVPB SCH (12:37)
--- NOTE | 2018-09-29 19:53 | CARD ---
APPROVED REPORT Date of service: 09/29/2018 EXAM: LIMITED Two-dimensional with bubble study <Conclusion> Limited study Normal LV systolic function and wall motion. Injection of agitated saline does not demonstrate an intra cardiac shunt.
--- NOTE | 2018-09-29 22:06 | CP.PCM.PN ---
Subjective - Date & Time of Evaluation Date of Evaluation: 09/29/18 Time of Evaluation: 15:10 - Subjective Subjective: Patient seen and evaluated Denies chest pain and dyspnea Awaiting neuro clearance for cardiac cath 83 y/o male s/p CVA Appears comfortable now Denies chets pain Patient 1:1 Physical Exam - Head Exam Head Exam: NORMOCEPHALIC - Neck Exam Neck exam: Positive for: Normal Inspection - Respiratory Exam Respiratory Exam: NORMAL BREATHING PATTERN - Cardiovascular Exam Cardiovascular Exam: REGULAR RHYTHM, Systolic Murmur 4/6 - Extremities Exam Extremities exam: Positive for: normal inspection Assessment & Plan (1) ACS (acute coronary syndrome) Assessment and Plan: Positive troponin, etiology ?. exam suggestive of Aortic stenosis. Obtain old record from Primary. Echocardiogram and Further management accordingly. Status: Acute (2) Ischemic stroke Assessment and Plan: Work-up in progress and further management according to neurology. Status: Acute For JOSE 09/29 for posiible PFO by ECHO (3) Severe Assessment and Plan: Once cleared by neurology will perform cardiac cat and TVR Status: Acute Objective - Vital Signs/Intake and Output Vital Signs (last 24 hours): Temp Pulse Resp BP Pulse Ox 98.2 F 74 20 157/89 H 95 09/29/18 15:00 09/29/18 16:29 09/29/18 15:00 09/29/18 15:00 09/29/18 15:00 Intake and Output: 09/29/18 09/30/18 18:59 06:59 Intake Total 300 Balance 300 - Medications Medications: Current Medications Albuterol/Ipratropium (Duoneb 3 Mg/0.5 Mg (3 Ml) Ud) 3 ml INH RQ6 PRN PRN Reason: Shortness of Breath Aspirin (Aspirin Chewable) 81 mg PO DAILY [facility] Last Admin: 09/29/18 11:17 Dose: 81 mg Benzonatate (Tessalon Perles) 100 mg PO TID [facility] Last Admin: 09/29/18 17:47 Dose: 100 mg Clopidogrel Bisulfate (Plavix) 75 mg PO DAILY [facility] Last Admin: 09/29/18 11:18 Dose: 75 mg Donepezil HCl (Aricept) 5 mg PO HS [facility] Last Admin: 09/28/18 22:24 Dose: 5 mg Enoxaparin Sodium (Lovenox) 40 mg SC Q12 [facility] Last Admin: 09/29/18 11:16 Dose: 40 mg Finasteride (Proscar) 5 mg PO DAILY [facility] Last Admin: 09/29/18 11:17 Dose: 5 mg Guaifenesin (Mucinex La) 600 mg PO BID [facility] Last Admin: 09/29/18 17:47 Dose: 600 mg Piperacillin Sod/Tazobactam Sod (Zosyn 3.375 Gm Iv Premix) 3.375 gm in 50 mls @ 200 mls/hr IVPB Q8H [facility]; Protocol Last Admin: 09/29/18 17:47 Dose: 200 mls/hr Vancomycin/Sodium Chloride (Vancomycin 1 Gm/Ns 200 Ml) 1 gm in 200 mls @ 167 mls/hr IVPB DAILY [facility]; Protocol Stop: 09/30/18 10:01 Last Admin: 09/29/18 12:37 Dose: 167 mls/hr Lorazepam (Ativan) 0.5 mg IVP ONCE PRN PRN Reason: Agitation Last Admin: 09/29/18 11:24 Dose: 0.5 mg Nicotine (Nicoderm Cq) 1 patch TD DAILY [facility] Last Admin: 09/29/18 11:17 Dose: 1 patch Quetiapine Fumarate (Seroquel) 25 mg PO HS [facility] Last Admin: 09/28/18 22:25 Dose: 25 mg Rosuvastatin Calcium (Crestor) 10 mg PO HS [facility] Last Admin: 09/28/18 22:25 Dose: 10 mg Saccharomyces Boulardii (Florastor) 250 mg PO BID [facility] Last Admin: 09/29/18 17:47 Dose: 250 mg - Labs Labs: 09/29/18 07:34 09/29/18 07:34 PT 10.0 SECONDS (9.7-12.2) 09/24/18 18:55 INR 0.9 09/24/18 18:55 APTT 28 SECONDS (21-34) 09/24/18 18:55
[2018-09-30] MEDS: Piperacill/Tazo 3.375gm in Dex 3.375 GM/50 ML BAG IVPB SCH ×4 (01:53→21:56)
[2018-09-30 07:45] LABS: BASO # 0.1 K/uL (0.0-0.2); BASO % 0.7 % (0.0-2.0); EOS # 0.1 K/uL (0.0-0.7); EOS % 0.7 % (0.0-4.0); HEMOGLOBIN 11.2 g/dL (12.0-18.0); LYMPH # 1.7 K/uL (1.0-4.3); LYMPH % 10.3 % (20.0-40.0); MEAN CELL VOLUME 85.8 fL (80.0-94.0); MEAN CORPUSCULAR HEMOGLOBIN 27.1 pg (27.0-31.0); MEAN CORPUSCULAR HGB CONC 31.6 g/dL (33.0-37.0); MEAN PLATELET VOLUME 7.5 fL (7.2-11.7); MONO % 6.2 % (0.0-10.0); NEUT # 13.8 K/uL (1.8-7.0); NEUT % 82.1 % (50.0-75.0); RBC 4.14 Mil/uL (4.40-5.90); RED CELL DISTRIBUTION WIDTH 17.8 % (11.5-14.5)
[2018-09-30 07:46] LABS: WHITE BLOOD COUNT 16.8 K/uL (4.8-10.8)
[2018-09-30 07:49] LABS: ALB/GLOB RATIO 0.9 (1.0-2.1); ALBUMIN 2.6 g/dL (3.5-5.0); ALT/SGPT 23 U/L (21-72); AST/SGOT 41 U/L (17-59); BLOOD UREA NITROGEN 18 mg/dL (9-20); CALCIUM 8.2 mg/dl (8.6-10.4); GFR NON-AFRICAN AMERICAN > 60
[2018-09-30 09:26] LABS: VENOUS BLOOD GAS BASE EXCESS 4.7 mmol/L (0.0-2.0); VENOUS BLOOD GAS PCO2 42 mmHg (40-60); VENOUS BLOOD GAS PO2 52 mm/Hg (30-55); VENOUS BLOOD PH 7.45 (7.32-7.43)
--- NOTE | 2018-09-30 09:28 | CP.PCM.PN ---
<Alirio Dunbar - Last Filed: 09/30/18 14:25> Subjective - Date & Time of Evaluation Date of Evaluation: 09/30/18 Time of Evaluation: 09:31 - Subjective Subjective: PGY3 Note for Dr. Norris; Dr. 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 Objective - Vital Signs/Intake and Output Vital Signs (last 24 hours): Temp Pulse Resp BP Pulse Ox 97.4 F L 57 L 20 106/63 95 09/30/18 07:15 09/30/18 07:15 09/30/18 07:15 09/30/18 07:15 09/30/18 07:15 Intake and Output: 09/30/18 09/30/18 06:59 18:59 Intake Total 200 Balance 200 - Medications Medications: Current Medications Albuterol/Ipratropium (Duoneb 3 Mg/0.5 Mg (3 Ml) Ud) 3 ml INH RQ6 PRN PRN Reason: Shortness of Breath Aspirin (Aspirin Chewable) 81 mg PO DAILY [facility] Last Admin: 09/29/18 11:17 Dose: 81 mg Benzonatate (Tessalon Perles) 100 mg PO TID [facility] Last Admin: 09/29/18 17:47 Dose: 100 mg Clopidogrel Bisulfate (Plavix) 75 mg PO DAILY [facility] Last Admin: 09/29/18 11:18 Dose: 75 mg Donepezil HCl (Aricept) 5 mg PO HS [facility] Last Admin: 09/29/18 22:31 Dose: Not Given Enoxaparin Sodium (Lovenox) 40 mg SC Q12 [facility] Last Admin: 09/29/18 22:30 Dose: Not Given Finasteride (Proscar) 5 mg PO DAILY [facility] Last Admin: 09/29/18 11:17 Dose: 5 mg Guaifenesin (Mucinex La) 600 mg PO BID [facility] Last Admin: 09/29/18 17:47 Dose: 600 mg Piperacillin Sod/Tazobactam Sod (Zosyn 3.375 Gm Iv Premix) 3.375 gm in 50 mls @ 200 mls/hr IVPB Q8H [facility]; Protocol Last Admin: 09/30/18 01:53 Dose: 200 mls/hr Vancomycin/Sodium Chloride (Vancomycin 1 Gm/Ns 200 Ml) 1 gm in 200 mls @ 167 mls/hr IVPB DAILY [facility]; Protocol Stop: 09/30/18 10:01 Last Admin: 09/29/18 12:37 Dose: 167 mls/hr Lorazepam (Ativan) 0.5 mg IVP ONCE PRN PRN Reason: Agitation Last Admin: 09/29/18 11:24 Dose: 0.5 mg Nicotine (Nicoderm Cq) 1 patch TD DAILY [facility] Last Admin: 09/29/18 11:17 Dose: 1 patch Quetiapine Fumarate (Seroquel) 25 mg PO HS [facility] Last Admin: 09/29/18 22:31 Dose: Not Given Rosuvastatin Calcium (Crestor) 10 mg PO HS [facility] Last Admin: 09/29/18 22:31 Dose: Not Given Saccharomyces Boulardii (Florastor) 250 mg PO BID [facility] Last Admin: 09/29/18 17:47 Dose: 250 mg - Labs Labs: 09/30/18 07:25 09/30/18 07:25 PT 10.0 SECONDS (9.7-12.2) 09/24/18 18:55 INR 0.9 09/24/18 18:55 APTT 28 SECONDS (21-34) 09/24/18 18:55 - Constitutional Appears: Non-toxic, No Acute Distress, Chronically Ill - Head Exam Head Exam: ATRAUMATIC - Eye Exam Eye Exam: EOMI - Neck Exam Neck Exam: Full ROM. absent: Lymphadenopathy - Respiratory Exam Respiratory Exam: Rales, NORMAL BREATHING PATTERN. absent: Clear to Ausculation Bilateral, Rhonchi, Wheezes, Respiratory Distress, Stridor Additional comments: coughing a lot - Cardiovascular Exam Cardiovascular Exam: REGULAR RHYTHM, +S1, +S2 - GI/Abdominal Exam GI & Abdominal Exam: Soft, Normal Bowel Sounds. absent: Tenderness - Extremities Exam Extremities Exam: Full ROM. absent: Calf Tenderness - Back Exam Back Exam: NORMAL INSPECTION. absent: CVA tenderness (L), CVA tenderness (R) - Neurological Exam Neurological Exam: Awake. absent: Oriented x3 (ANOx1; only to self ) - Psychiatric Exam Additional comments: labile - Skin Skin Exam: Warm Assessment and Plan - Assessment and Plan (Free Text) Assessment: Patient is a 83 year old M who was admitted for Altered mental status, found to be acute on chronic stroke with symptomatic severe aortic stenosis Acute on chronic CVA -CVA possibly embolic in nature -Continue ASA 81mg PO daily, Plavix 75mg PO daily -Continue Crestor 10mg PO HS -echo w/ bubble study showed no PFO, severe , and diastolic dysfunction, LVEF 65-70%; please refer to full report -Patient unable to complete MRA neck -Patient cleared from neurological standpoint as per neuro -Neurology on consult, Dr Manrique, help appreciated Imaging: -CT head: showed multiple old infarcts; no acute infarct seen; please refer to full report -Brain MRI:There are 2 tiny focal areas of mild restricted diffusion, both of which are located in the posterior temporoparietal cortices left slightly larger and the slightly more anterior in location on the right side. Note that the both of these foci are adjacent to, abutting areas of larger chronic infarcts left larger than right... Both of these foci could represent small acute/subacute areas of reversible ischemia (TIAs) or tiny acute/subacute infarcts. Note that a small components of shine through artifact cannot be excluded. No additional focal areas of abnormal restricted diffusion identified. Chronic confluent white matter ischemic changes with more discrete bifrontal infarcts left larger than right. There also chronic bilateral cerebellar infarcts -Echocardiogram: EF 65-70%, diastolic dysfunction, severe valvular aortic stenosis, aortic valve area 0.76cm2, borderline MVP -MRA Head: no occlusion or significant stenosis of [place] of [place] arterial anatomy. 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 Lujan; cardiology; thank you for your help NSTEMI; resolved -EKG showed Nonspecific t-wave abnormality -Continue therapeutic lovenox, plavix daily -Troponins 0.1230, 0.1230, 0.0940 -Patient will need cardiac cath and TVR pending neuro clearance -Dr. Lujan; cardiology; thank you for your help Pneumonia -Afebrile, no leukocytosis, procalcitonin was low -CXR showed consolidation in right middle lobes and right lower lobe, patchy infiltrate in left lower lobe (see full report) -Antibiotics: Zosyn 3.375 Q8H (started 09/25/18) and Vancomycin 1g Q24H (started 09/25/18) -Continue Florastor 250mg PO BID -Continue Mucinex 600mg PO BID, Duonebs 3ml INH RQ6H PRN shortness of breath -Tessalon Pearles 100mg PO TID added for cough suppression pt febrile overnight 09/29-09/30 w/ elevation in WBC -f/u vbg lactate -f/u chest x-ray -f/u blood cultures (original negative x 5 days -f/u UA/Uculture -patient already on Vanco 1g Q12H Suicidal Ideation -Patient placed on 1:1 for safety -Psych on consult, Dr Brown, help appreciated Hx of Dementia -Donepizil 5mg daily -Continue Seroquel 25mg PO HS for agitation -Dr. Brown; psychiatry; thank you for your help Hx of BPH -Continue Finasteride 5mg PO daily Hx of bacteremia; treated at [facility] 3mo ago -Continue Vanc 1g Q24h and Zosyn 3.375 Q8H -Blood cultures (09/24/18): no growth after 24 hours X 2 Hyperglycemia -Hemoglobin a1c 5.1 GI/DVT ppx: -Lovenox therapeutic 40mg SC BID -hx of falls; fall precautions -PT/OT eval Plan discussed and seen with Dr. Dianna Moreno DO PGY-2 <Ashkan Alexander - Last Filed: 10/10/18 13:03> Objective - Vital Signs/Intake and Output Vital Signs (last 24 hours): Temp Pulse Resp BP Pulse Ox 97.7 F 98 H 20 104/72 94 L 10/10/18 07:00 10/10/18 09:59 10/10/18 07:00 10/10/18 07:00 10/10/18 07:00 Intake and Output: 10/10/18 10/10/18 06:59 18:59 Intake Total 300 Balance 300 - Medications Medications: Current Medications Acetaminophen (Tylenol 325mg Tab) 650 mg PO Q6 PRN PRN Reason: Fever >100.4 F Last Admin: 10/02/18 00:14 Dose: 650 mg Albuterol/Ipratropium (Duoneb 3 Mg/0.5 Mg (3 Ml) Ud) 3 ml INH RQ6 [facility] Last Admin: 10/10/18 07:55 Dose: 3 ml Aspirin (Aspirin Chewable) 81 mg PO DAILY [facility] Last Admin: 10/10/18 10:34 Dose: 81 mg Benzonatate (Tessalon Perles) 100 mg PO TID [facility] Last Admin: 10/10/18 10:34 Dose: 100 mg Brimonidine Tartrate (Alphagan 0.2% Opht) 0 ml OU DAILY [facility] Last Admin: 10/10/18 10:35 Dose: 1 drop Donepezil HCl (Aricept) 5 mg PO HS [facility] Last Admin: 10/09/18 22:14 Dose: 5 mg Finasteride (Proscar) 5 mg PO DAILY [facility] Last Admin: 10/10/18 10:34 Dose: 5 mg Guaifenesin (Mucinex La) 600 mg PO BID [facility] Last Admin: 10/10/18 10:34 Dose: 600 mg Insulin Aspart (Novolog) 0 unit SC [facility]; Protocol Last Admin: 10/10/18 08:00 Dose: Not Given Latanoprost (Xalatan Opht) 0 ml OU HS [facility] Last Admin: 10/09/18 22:00 Dose: Not Given Lorazepam (Ativan) 0.5 mg IVP ONCE PRN PRN Reason: Agitation Last Admin: 10/04/18 00:14 Dose: 0.5 mg Lorazepam (Ativan) 0.5 mg IVP Q4H PRN PRN Reason: Anxiety Last Admin: 10/04/18 21:12 Dose: 0.5 mg Nicotine (Nicoderm Cq) 1 patch TD DAILY [facility] Last Admin: 10/10/18 10:34 Dose: 1 patch Quetiapine Fumarate (Seroquel) 25 mg PO BID PRN PRN Reason: Agitation Last Admin: 10/04/18 20:36 Dose: 25 mg Rosuvastatin Calcium (Crestor) 10 mg PO HS [facility] Last Admin: 10/08/18 22:08 Dose: 10 mg Saccharomyces Boulardii (Florastor) 250 mg PO BID [facility] Last Admin: 10/10/18 10:40 Dose: 250 mg Verapamil HCl (Calan Sr Tab) 180 mg PO DAILY [facility] Last Admin: 10/10/18 10:33 Dose: 180 mg - Labs Labs: 10/08/18 11:53 10/08/18 11:53 PT 10.0 SECONDS (9.7-12.2) 09/24/18 18:55 INR 0.9 09/24/18 18:55 APTT 28 SECONDS (21-34) 09/24/18 18:55 Attending/Attestation - Attestation I have personally seen and examined this patient.: Yes I have fully participated in the care of the patient.: Yes I have reviewed all pertinent clinical information, including history, physical exam and plan: Yes Notes (Text): 10/10/18 13:02 This is a late entry. Care of this patient was gone over in detail with resident Dr. Dunbar. Ashkan Alexander D.O.
[2018-09-30] MEDS: guaiFENesin 600 mg ER Tab PO SCH ×2 (10:02→17:40)
[2018-09-30] MEDS: Enoxaparin 40 mg Syringe SC SCH ×2 (10:03→21:53)
[2018-09-30] MEDS: Saccharomyces Boulardi 250 mg Cap PO SCH ×2 (10:05→17:40)
--- NOTE | 2018-09-30 10:30 | RAD ---
Date of service: 09/30/2018 HISTORY: cough/sob/PNA grading COMPARISON: 09/24/2018 TECHNIQUE: Chest PA and lateral FINDINGS: LUNGS: Right lower lobe opacity as on prior examination, grossly unchanged. No evidence of middle lobe consolidation. No other abnormal opacity elsewhere. PLEURA: No significant pleural effusion identified. No pneumothorax apparent. CARDIOVASCULAR: There is atherosclerotic calcification of the thoracic aortic arch. Normal cardiac size. No pulmonary vascular congestion. OSSEOUS STRUCTURES: No significant abnormalities. VISUALIZED UPPER ABDOMEN: Normal. OTHER FINDINGS: None. IMPRESSION: Right lower lobe infiltrate.
[2018-09-30] MEDS: Vancomycin 1 gm/NS 200 ml 1 GM/200 ML BAG IVPB SCH (12:28)
--- NOTE | 2018-09-30 15:07 | CP.PCM.PCO ---
Physician Communication Note - Physician Communication Note Physician Communication Note: neuro signing off; pt is cleared neuro winter for cardiac procedures. thanks
[2018-09-30] MEDS: (Novolog) Insulin Aspart, Recombinant 100 u/ml 10 ml vial SC SCH ×2 (16:30→21:54)
[2018-09-30 17:59] LABS: SQUAMOUS EPITHIAL < 1 /hpf (0-5); URINE BACTERIA RARE (<OCC); URINE BILIRUBIN NEGATIVE (NEGATIVE); URINE BLOOD NEGATIVE (NEGATIVE); URINE CALCIUM OXALATE CRYSTALS OCC /hpf (<OCC); URINE CLARITY Hazy (Clear); URINE COLOR Yellow (YELLOW); URINE GLUCOSE (UA) 1+ mg/dL (Normal); URINE LEUKOCYTE ESTERASE NEG Leu/uL (Negative); URINE PROTEIN NEGATIVE (NEGATIVE); URINE UROBILINOGEN NORMAL mg/dL (0.2-1.0)
[2018-09-30] MEDS: Acetylcysteine 20% Inhal Soln (4ml) INH SCH (19:38)
--- NOTE | 2018-09-30 23:11 | CP.PCM.PN ---
Subjective - Date & Time of Evaluation Date of Evaluation: 09/30/18 Time of Evaluation: 19:40 - Subjective Subjective: Patient seen and evaluated D/W Son at length regarding the need of Cardiac cath and TAVR Son and patiet not interested in marixa heart procedures Medical management for now 83 y/o male s/p CVA Appears comfortable now Denies chets pain Physical Exam - Head Exam Head Exam: NORMOCEPHALIC - Neck Exam Neck exam: Positive for: Normal Inspection - Respiratory Exam Respiratory Exam: NORMAL BREATHING PATTERN - Cardiovascular Exam Cardiovascular Exam: REGULAR RHYTHM, Systolic Murmur 01/08 - Extremities Exam Extremities exam: Positive for: normal inspection Assessment & Plan (1) ACS (acute coronary syndrome) Assessment and Plan: Positive troponin, etiology ?. exam suggestive of Aortic stenosis. Obtain old record from Primary. Echocardiogram and Further management accordingly. Status: Acute (2) Ischemic stroke Assessment and Plan: Work-up in progress and further management according to neurology. Status: Acute For JOSE 09/29 for posiible PFO by ECHO (3) Severe Assessment and Plan: Status: Acute Objective - Vital Signs/Intake and Output Vital Signs (last 24 hours): Temp Pulse Resp BP Pulse Ox 98.5 F 71 18 108/67 93 L 09/30/18 15:00 09/30/18 16:00 09/30/18 15:00 09/30/18 15:00 09/30/18 15:55 - Medications Medications: Current Medications Acetylcysteine (Acetylcysteine 20%) 4 ml INH RQ6 [facility] Last Admin: 09/30/18 19:38 Dose: Not Given Albuterol/Ipratropium (Duoneb 3 Mg/0.5 Mg (3 Ml) Ud) 3 ml INH RQ6 PRN PRN Reason: Shortness of Breath Aspirin (Aspirin Chewable) 81 mg PO DAILY [facility] Last Admin: 09/30/18 10:02 Dose: 81 mg Benzonatate (Tessalon Perles) 100 mg PO TID [facility] Last Admin: 09/30/18 17:40 Dose: 100 mg Clopidogrel Bisulfate (Plavix) 75 mg PO DAILY [facility] Last Admin: 09/30/18 10:03 Dose: 75 mg Donepezil HCl (Aricept) 5 mg PO HS [facility] Last Admin: 09/30/18 21:53 Dose: 5 mg Enoxaparin Sodium (Lovenox) 40 mg SC Q12 [facility] Last Admin: 09/30/18 21:53 Dose: 40 mg Finasteride (Proscar) 5 mg PO DAILY [facility] Last Admin: 09/30/18 10:02 Dose: 5 mg Guaifenesin (Mucinex La) 600 mg PO BID [facility] Last Admin: 09/30/18 17:40 Dose: 600 mg Hydroxyzine HCl (Atarax) 10 mg PO Q6 PRN PRN Reason: Agitation Piperacillin Sod/Tazobactam Sod (Zosyn 3.375 Gm Iv Premix) 3.375 gm in 50 mls @ 100 mls/hr IVPB Q6H [facility]; Protocol Last Admin: 09/30/18 21:56 Dose: 100 mls/hr Vancomycin/Sodium Chloride (Vancomycin 1 Gm/Ns 200 Ml) 1 gm in 200 mls @ 133 mls/hr IVPB Q12H [facility]; Protocol Stop: 10/06/18 00:31 Insulin Aspart (Novolog) 0 unit SC ACHS [facility]; Protocol Last Admin: 09/30/18 21:54 Dose: Not Given Lorazepam (Ativan) 0.5 mg IVP ONCE PRN PRN Reason: Agitation Last Admin: 09/29/18 11:24 Dose: 0.5 mg Nicotine (Nicoderm Cq) 1 patch TD DAILY [facility] Last Admin: 09/30/18 10:02 Dose: 1 patch Quetiapine Fumarate (Seroquel) 25 mg PO BID [facility] Last Admin: 09/30/18 17:40 Dose: 25 mg Rosuvastatin Calcium (Crestor) 10 mg PO HS [facility] Last Admin: 09/30/18 21:53 Dose: 10 mg Saccharomyces Boulardii (Florastor) 250 mg PO BID [facility] Last Admin: 09/30/18 17:40 Dose: 250 mg - Labs Labs: 09/30/18 07:25 09/30/18 07:25 PT 10.0 SECONDS (9.7-12.2) 09/24/18 18:55 INR 0.9 09/24/18 18:55 APTT 28 SECONDS (21-34) 09/24/18 18:55
--- NOTE | 2018-09-30 23:53 | PCM.PYCHPN ---
Psychiatric Progress Note - Psychiatric Progress Note Patient seen today, length of contact: 15 min Medication Change: Yes Medical Record Reviewed: Yes Mental Status Examination - Cognitive Function Orientation: Person, Place, Situation Memory: Impaired Attention: WNL Concentration: Poor Association: WNL Fund of Knowledge: Poor - Mood Mood: Anxious - Affect Affect: Constricted - Speech Speech: Soft - Formal Thought Process Formal Thought Process: Paranoia - Suicidal Ideation Suicidal Ideation: No - Homicidal Ideation Homicidal Ideation: No Goal/Treatment Plan - Goal/Treatment Plan Need for Continued Stay: Other Progress Toward Problem(s) and Goals/Treatment Plan: Pt psychiatrically cleared
[2018-10-01] MEDS: Vancomycin 1 gm/NS 200 ml 1 GM/200 ML BAG IVPB SCH ×2 (00:03→12:50)
[2018-10-01] MEDS: Acetylcysteine 20% Inhal Soln (4ml) INH SCH ×4 (01:12→19:07)
[2018-10-01] MEDS: Piperacill/Tazo 3.375gm in Dex 3.375 GM/50 ML BAG IVPB SCH ×4 (04:04→21:56)
[2018-10-01] MEDS: (Novolog) Insulin Aspart, Recombinant 100 u/ml 10 ml vial SC SCH ×4 (07:57→21:21)
[2018-10-01 09:07] LABS: BASO # 0.1 K/uL (0.0-0.2); BASO % 0.5 % (0.0-2.0); EOS # 0.1 K/uL (0.0-0.7); EOS % 0.5 % (0.0-4.0); HEMOGLOBIN 11.3 g/dL (12.0-18.0); LYMPH # 1.5 K/uL (1.0-4.3); LYMPH % 9.2 % (20.0-40.0); MEAN CELL VOLUME 85.1 fL (80.0-94.0); MEAN CORPUSCULAR HEMOGLOBIN 27.4 pg (27.0-31.0); MEAN CORPUSCULAR HGB CONC 32.2 g/dL (33.0-37.0); MEAN PLATELET VOLUME 7.5 fL (7.2-11.7); MONO # 1.1 K/uL (0.0-0.8); MONO % 6.8 % (0.0-10.0); NEUT # 13.6 K/uL (1.8-7.0); PLATELET COUNT 309 K/uL (130-400); RBC 4.13 Mil/uL (4.40-5.90); RED CELL DISTRIBUTION WIDTH 18.2 % (11.5-14.5); WHITE BLOOD COUNT 16.4 K/uL (4.8-10.8)
[2018-10-01 09:26] LABS: ALB/GLOB RATIO 0.9 (1.0-2.1); ALBUMIN 2.9 g/dL (3.5-5.0); ALT/SGPT 23 U/L (21-72); AST/SGOT 35 U/L (17-59); BLOOD UREA NITROGEN 19 mg/dL (9-20); CALCIUM 8.2 mg/dl (8.6-10.4); GFR NON-AFRICAN AMERICAN > 60
--- NOTE | 2018-10-01 09:28 | CP.PCM.PN ---
Subjective - Date & Time of Evaluation Date of Evaluation: 10/01/18 Time of Evaluation: 09:28 - Subjective Subjective: PGY3 Note for Dr. Norris; Medicine Pt seen and examined with attending physician; patient states he is coughing but feels fine and is requesting to go to rehab. Denies all symptoms. Objective - Vital Signs/Intake and Output Vital Signs (last 24 hours): Temp Pulse Resp BP Pulse Ox 100.1 F H 67 20 119/69 96 10/01/18 08:00 10/01/18 08:00 10/01/18 08:00 10/01/18 08:00 10/01/18 08:00 Intake and Output: 10/01/18 10/01/18 06:59 18:59 Intake Total 340 Balance 340 - Medications Medications: Current Medications Acetylcysteine (Acetylcysteine 20%) 4 ml INH RQ6 [facility] Last Admin: 10/01/18 01:12 Dose: Not Given Albuterol/Ipratropium (Duoneb 3 Mg/0.5 Mg (3 Ml) Ud) 3 ml INH RQ6 PRN PRN Reason: Shortness of Breath Aspirin (Aspirin Chewable) 81 mg PO DAILY [facility] Last Admin: 09/30/18 10:02 Dose: 81 mg Benzonatate (Tessalon Perles) 100 mg PO TID [facility] Last Admin: 09/30/18 17:40 Dose: 100 mg Clopidogrel Bisulfate (Plavix) 75 mg PO DAILY [facility] Last Admin: 09/30/18 10:03 Dose: 75 mg Donepezil HCl (Aricept) 5 mg PO HS [facility] Last Admin: 09/30/18 21:53 Dose: 5 mg Enoxaparin Sodium (Lovenox) 40 mg SC Q12 [facility] Last Admin: 09/30/18 21:53 Dose: 40 mg Finasteride (Proscar) 5 mg PO DAILY [facility] Last Admin: 09/30/18 10:02 Dose: 5 mg Guaifenesin (Mucinex La) 600 mg PO BID [facility] Last Admin: 09/30/18 17:40 Dose: 600 mg Hydroxyzine HCl (Atarax) 10 mg PO Q6 PRN PRN Reason: Agitation Piperacillin Sod/Tazobactam Sod (Zosyn 3.375 Gm Iv Premix) 3.375 gm in 50 mls @ 100 mls/hr IVPB Q6H [facility]; Protocol Last Admin: 10/01/18 04:04 Dose: 100 mls/hr Vancomycin/Sodium Chloride (Vancomycin 1 Gm/Ns 200 Ml) 1 gm in 200 mls @ 133 mls/hr IVPB Q12H [facility]; Protocol Stop: 10/06/18 00:31 Last Admin: 10/01/18 00:03 Dose: 133 mls/hr Doxycycline Hyclate 100 mg/ (Sodium Chloride) 100 mls @ 100 mls/hr IVPB Q12H [facility]; Protocol Insulin Aspart (Novolog) 0 unit SC ACHS [facility]; Protocol Last Admin: 10/01/18 07:57 Dose: Not Given Lorazepam (Ativan) 0.5 mg IVP ONCE PRN PRN Reason: Agitation Last Admin: 09/29/18 11:24 Dose: 0.5 mg Nicotine (Nicoderm Cq) 1 patch TD DAILY [facility] Last Admin: 09/30/18 10:02 Dose: 1 patch Quetiapine Fumarate (Seroquel) 25 mg PO BID [facility] Last Admin: 09/30/18 17:40 Dose: 25 mg Rosuvastatin Calcium (Crestor) 10 mg PO HS [facility] Last Admin: 09/30/18 21:53 Dose: 10 mg Saccharomyces Boulardii (Florastor) 250 mg PO BID [facility] Last Admin: 09/30/18 17:40 Dose: 250 mg - Labs Labs: 10/01/18 09:00 09/30/18 07:25 PT 10.0 SECONDS (9.7-12.2) 09/24/18 18:55 INR 0.9 09/24/18 18:55 APTT 28 SECONDS (21-34) 09/24/18 18:55 Assessment and Plan - Assessment and Plan (Free Text) Assessment: Appears: Non-toxic, No Acute Distress, Chronically Ill - Head Exam Head Exam: ATRAUMATIC - Eye Exam Eye Exam: EOMI - Neck Exam Neck Exam: Full ROM. absent: Lymphadenopathy - Respiratory Exam Respiratory Exam: Rales, NORMAL BREATHING PATTERN. absent: Clear to Ausculation Bilateral, Rhonchi, Wheezes, Respiratory Distress, Stridor Additional comments: coughing a lot - Cardiovascular Exam Cardiovascular Exam: REGULAR RHYTHM, +S1, +S2 - GI/Abdominal Exam GI & Abdominal Exam: Soft, Normal Bowel Sounds. absent: Tenderness - Extremities Exam Extremities Exam: Full ROM. absent: Calf Tenderness - Back Exam Back Exam: NORMAL INSPECTION. absent: CVA tenderness (L), CVA tenderness (R) - Neurological Exam Neurological Exam: Awake. absent: Oriented x3 (ANOx1; only to self ) - Psychiatric Exam Additional comments: labile - Skin Skin Exam: Warm Assessment and Plan - Assessment and Plan (Free Text) Assessment: Patient is a 83 year old M who was admitted for Altered mental status, found to be acute on chronic stroke with symptomatic severe aortic stenosis Acute on chronic CVA -CVA possibly embolic in nature -Continue ASA 81mg PO daily, Plavix 75mg PO daily -Continue Crestor 10mg PO HS -echo w/ bubble study showed no PFO, severe , and diastolic dysfunction, LVEF 65-70%; please refer to full report -Patient unable to complete MRA neck -Patient cleared from neurological standpoint as per neuro -Neurology on consult, Dr Manrique, help appreciated Imaging: -CT head: showed multiple old infarcts; no acute infarct seen; please refer to full report -Brain MRI:There are 2 tiny focal areas of mild restricted diffusion, both of which are located in the posterior temporoparietal cortices left slightly larger and the slightly more anterior in location on the right side. Note that the both of these foci are adjacent to, abutting areas of larger chronic infarcts left l arger than right... Both of these foci could represent small acute/subacute areas of reversible ischemia (TIAs) or tiny acute/subacute infarcts. Note that a small components of shine through artifact cannot be excluded. No additional focal areas of abnormal restricted diffusion identified. Chronic confluent white matter ischemic changes with more discrete bifrontal infarcts left larger than right. There also chronic bilateral cerebellar infarcts -Echocardiogram: EF 65-70%, diastolic dysfunction, severe valvular aortic stenosis, aortic valve area 0.76cm2, borderline MVP -MRA Head: no occlusion or significant stenosis of [place] arterial anatomy. 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 Lujan; cardiology; thank you for your help NSTEMI; resolved -EKG showed Nonspecific t-wave abnormality -Continue therapeutic lovenox, plavix daily -Troponins 0.1230, 0.1230, 0.0940 -Patient will need cardiac cath and TVR pending neuro clearance -Dr. Lujan; cardiology; thank you for your help Pneumonia -Afebrile, no leukocytosis, procalcitonin was low -CXR showed consolidation in right middle lobes and right lower lobe, patchy infiltrate in left lower lobe (see full report) -Antibiotics: Zosyn 3.375 Q8H (started 09/25/18) and Vancomycin 1g Q24H (started 09/25/18) -Continue Florastor 250mg PO BID -Continue Mucinex 600mg PO BID, Duonebs 3ml INH RQ6H PRN shortness of breath -Tessalon Pearles 100mg PO TID added for cough suppression pt continues to have fevers 09/30-->10/01 -Vanco 1g Q12H, Zosyn 3.375 Q6H, add doxycycline 100mg BID -WBC elevated -f/u repeat chest x-ray 10/01 Suicidal Ideation; resolved -Patient placed on 1:1 for safety -Psych on consult, Dr Brown, help appreciated Hx of Dementia -Donepizil 5mg daily -Continue Seroquel 25mg PO HS for agitation -Dr. Brown; psychiatry; thank you for your help Hx of BPH -Continue Finasteride 5mg PO daily Hx of bacteremia; treated at [facility] 3mo ago -Continue Vanc 1g Q24h and Zosyn 3.375 Q8H -Blood cultures (09/24/18): no growth after 5 days Hyperglycemia -Hemoglobin a1c 5.1 GI/DVT ppx: -Lovenox therapeutic 40mg SC BID -hx of falls; fall precautions -PT/OT eval Plan discussed and seen with Dr. Myrna Carmen PGY3
[2018-10-01 10:25] LABS: ANISOCYTOSIS MODERATE; BANDS 7 % (0-2); LYMPHOCYTE 9 % (20-40); MONOCYTE 4 % (0-10); NEUTROPHIL 80 % (50-75); OVALOCYTES SLIGHT; PLATELET ESTIMATE NORMAL (NORMAL); TOTAL CELLS COUNTED 100
[2018-10-01] MEDS: Enoxaparin 40 mg Syringe SC SCH ×3 (10:46→22:00)
[2018-10-01] MEDS: guaiFENesin 600 mg ER Tab PO SCH ×2 (10:47→18:05)
[2018-10-01] MEDS: Saccharomyces Boulardi 250 mg Cap PO SCH ×2 (10:47→18:05)
--- NOTE | 2018-10-01 11:51 | RAD ---
Date of service: 10/01/2018 HISTORY: Possible pneumonitis/aspiration COMPARISON: No prior. TECHNIQUE: Chest PA and lateral FINDINGS: LINES AND TUBES: None. LUNG AND PLEURA: The lungs are well inflated. There is linear subsegmental atelectasis/scarring in the right lower lobe no pleural effusion or pneumothorax. HEART AND MEDIASTINUM: The heart is not enlarged. There are aortic atherosclerotic calcifications present. The hilar and mediastinal contours are within normal limits. SKELETAL STRUCTURES: The bony structures are within normal limits for the patient's age. VISUALIZED UPPER ABDOMEN: Normal. OTHER FINDINGS: None. IMPRESSION: No active pulmonary disease.
[2018-10-01] MEDS: Albuterol-Ipratrop 3 mg / 0.5 (3 ml) UD INH PRN ×2 (13:40→19:06)
--- NOTE | 2018-10-01 18:53 | CP.PCM.PN ---
Subjective - Date & Time of Evaluation Date of Evaluation: 10/01/18 Time of Evaluation: 15:15 - Subjective Subjective: Pt seen and examined with attending physician; patient states he is coughing but feels fine and is requesting to go to rehab. Denies all symptoms. Physical examination - Assessment and Plan (Free Text) Assessment: Appears: Non-toxic, No Acute Distress, Chronically Ill - Head Exam Head Exam: ATRAUMATIC - Eye Exam Eye Exam: EOMI - Neck Exam Neck Exam: Full ROM. absent: Lymphadenopathy - Respiratory Exam Respiratory Exam: Rales, NORMAL BREATHING PATTERN. absent: Clear to Ausculation Bilateral, Rhonchi, Wheezes, Respiratory Distress, Stridor Additional comments: coughing a lot - Cardiovascular Exam Cardiovascular Exam: REGULAR RHYTHM, +S1, +S2 - GI/Abdominal Exam GI & Abdominal Exam: Soft, Normal Bowel Sounds. absent: Tenderness - Extremities Exam Extremities Exam: Full ROM. absent: Calf Tenderness - Back Exam Back Exam: NORMAL INSPECTION. absent: CVA tenderness (L), CVA tenderness (R) - Neurological Exam Neurological Exam: Awake. absent: Oriented x3 (ANOx1; only to self ) - Psychiatric Exam Additional comments: labile - Skin Skin Exam: Warm Assessment and Plan - Assessment and Plan (Free Text) Assessment: Patient is a 83 year old M who was admitted for Altered mental status, found to be acute on chronic stroke with symptomatic severe aortic stenosis Acute on chronic CVA -CVA possibly embolic in nature -Continue ASA 81mg PO daily, Plavix 75mg PO daily -Continue Crestor 10mg PO HS -echo w/ bubble study showed no PFO, severe , and diastolic dysfunction, LVEF 65-70%; please refer to full report -Patient unable to complete MRA neck -Patient cleared from neurological standpoint as per neuro -Neurology on consult, Dr Manrique, help appreciated Imaging: -CT head: showed multiple old infarcts; no acute infarct seen; please refer to full report -Brain MRI:There are 2 tiny focal areas of mild restricted diffusion, both of which are located in the posterior temporoparietal cortices left slightly larger and the slightly more anterior in location on the right side. Note that the both of these foci are adjacent to, abutting areas of larger chronic infarcts left larger than right... Both of these foci could represent small acute/subacute areas of reversible ischemia (TIAs) or tiny acute/subacute infarcts. Note that a small components of shine through artifact cannot be excluded. No additional focal areas of abnormal restricted diffusion identified. Chronic confluent white matter ischemic changes with more discrete bifrontal infarcts left larger than right. There also chronic bilateral cerebellar infarcts -Echocardiogram: EF 65-70%, diastolic dysfunction, severe valvular aortic stenosis, aortic valve area 0.76cm2, borderline MVP -MRA Head: no occlusion or significant stenosis of [place] arterial anatomy. 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 Lujan; cardiology; thank you for your help NSTEMI; resolved -EKG showed Nonspecific t-wave abnormality -Continue therapeutic lovenox, plavix daily -Troponins 0.1230, 0.1230, 0.0940 -Patient will need cardiac cath and TVR pending neuro clearance Pneumonia -Afebrile, no leukocytosis, procalcitonin was low -CXR showed consolidation in right middle lobes and right lower lobe, patchy infiltrate in left lower lobe (see full report) -Antibiotics: Zosyn 3.375 Q8H (started 09/25/18) and Vancomycin 1g Q24H (started 09/25/18) -Continue Florastor 250mg PO BID -Continue Mucinex 600mg PO BID, Duonebs 3ml INH RQ6H PRN shortness of breath -Tessalon Pearles 100mg PO TID added for cough suppression pt continues to have fevers 09/30-->10/01 -Vanco 1g Q12H, Zosyn 3.375 Q6H, add doxycycline 100mg BID -WBC elevated -f/u repeat chest x-ray 10/01 Suicidal Ideation; resolved -Patient placed on 1:1 for safety -Psych on consult, Dr Brown, help appreciated Hx of Dementia -Donepizil 5mg daily -Continue Seroquel 25mg PO HS for agitation -Dr. Brown; psychiatry; thank you for your help Hx of BPH -Continue Finasteride 5mg PO daily Hx of bacteremia; treated at [facility] 3mo ago -Continue Vanc 1g Q24h and Zosyn 3.375 Q8H -Blood cultures (09/24/18): no growth after 5 days Hyperglycemia -Hemoglobin a1c 5.1 GI/DVT ppx: -Lovenox therapeutic 40mg SC BID -hx of falls; fall precautions -PT/OT eval As per Patient's Son and 's request recommend medical management only. They do not want cardiac cath or TAVR Thanks Objective - Vital Signs/Intake and Output Vital Signs (last 24 hours): Temp Pulse Resp BP Pulse Ox 98.9 F 75 18 103/57 L 95 10/01/18 15:29 10/01/18 15:29 10/01/18 15:29 10/01/18 15:29 10/01/18 15:29 Intake and Output: 10/01/18 10/01/18 06:59 18:59 Intake Total 340 Balance 340 - Medications Medications: Current Medications Acetaminophen (Tylenol 325mg Tab) 650 mg PO Q6 PRN PRN Reason: Fever >100.4 F Last Admin: 10/01/18 10:46 Dose: 650 mg Acetylcysteine (Acetylcysteine 20%) 4 ml INH RQ6 [facility] Last Admin: 10/01/18 13:40 Dose: 4 ml Albuterol/Ipratropium (Duoneb 3 Mg/0.5 Mg (3 Ml) Ud) 3 ml INH RQ6 PRN PRN Reason: Shortness of Breath Last Admin: 10/01/18 13:40 Dose: 3 ml Aspirin (Aspirin Chewable) 81 mg PO DAILY [facility] Last Admin: 10/01/18 10:47 Dose: 81 mg Benzonatate (Tessalon Perles) 100 mg PO TID [facility] Last Admin: 10/01/18 18:05 Dose: 100 mg Clopidogrel Bisulfate (Plavix) 75 mg PO DAILY [facility] Last Admin: 10/01/18 10:47 Dose: 75 mg Donepezil HCl (Aricept) 5 mg PO HS [facility] Last Admin: 09/30/18 21:53 Dose: 5 mg Enoxaparin Sodium (Lovenox) 40 mg SC Q12 [facility] Last Admin: 10/01/18 10:46 Dose: 40 mg Finasteride (Proscar) 5 mg PO DAILY [facility] Last Admin: 10/01/18 10:47 Dose: 5 mg Guaifenesin (Mucinex La) 600 mg PO BID [facility] Last Admin: 10/01/18 18:05 Dose: 600 mg Hydroxyzine HCl (Atarax) 10 mg PO Q6 PRN PRN Reason: Agitation Piperacillin Sod/Tazobactam Sod (Zosyn 3.375 Gm Iv Premix) 3.375 gm in 50 mls @ 100 mls/hr IVPB Q6H [facility]; Protocol Last Admin: 10/01/18 18:08 Dose: 100 mls/hr Vancomycin/Sodium Chloride (Vancomycin 1 Gm/Ns 200 Ml) 1 gm in 200 mls @ 133 mls/hr IVPB Q12H [facility]; Protocol Stop: 10/06/18 00:31 Last Admin: 10/01/18 12:50 Dose: 133 mls/hr Doxycycline Hyclate 100 mg/ (Sodium Chloride) 100 mls @ 100 mls/hr IVPB Q12H [facility]; Protocol Last Admin: 10/01/18 10:45 Dose: 100 mls/hr [facility] Last Admin: 10/01/18 18:07 Dose: 2 unit Lorazepam (Ativan) 0.5 mg IVP ONCE PRN PRN Reason: Agitation Last Admin: 09/29/18 11:24 Dose: 0.5 mg Nicotine (Nicoderm Cq) 1 patch TD DAILY [facility] Last Admin: 10/01/18 10:46 Dose: 1 patch Quetiapine Fumarate (Seroquel) 25 mg PO BID [facility] Last Admin: 10/01/18 18:05 Dose: 25 mg Rosuvastatin Calcium (Crestor) 10 mg PO [facility] Last Admin: 09/30/18 21:53 Dose: 10 mg Saccharomyces Boulardii (Florastor) 250 mg PO BID [facility] Last Admin: 10/01/18 18:05 Dose: 250 mg - Labs Labs: 10/01/18 09:00 10/01/18 09:00 PT 10.0 SECONDS (9.7-12.2) 09/24/18 18:55 INR 0.9 09/24/18 18:55 APTT 28 SECONDS (21-34) 09/24/18 18:55
[2018-10-02] MEDS: Vancomycin 1 gm/NS 200 ml 1 GM/200 ML BAG IVPB SCH ×2 (00:14→13:15)
[2018-10-02] MEDS: Acetylcysteine 20% Inhal Soln (4ml) INH SCH ×4 (02:41→19:13)
[2018-10-02] MEDS: Piperacill/Tazo 3.375gm in Dex 3.375 GM/50 ML BAG IVPB SCH ×4 (03:51→23:04)
[2018-10-02 06:41] LABS: BASO # 0.1 K/uL (0.0-0.2); BASO % 0.4 % (0.0-2.0); EOS % 0.1 % (0.0-4.0); HEMOGLOBIN 11.2 g/dL (12.0-18.0); LYMPH # 1.1 K/uL (1.0-4.3); LYMPH % 6.5 % (20.0-40.0); MEAN CELL VOLUME 85.6 fL (80.0-94.0); MEAN CORPUSCULAR HEMOGLOBIN 27.8 pg (27.0-31.0); MEAN CORPUSCULAR HGB CONC 32.5 g/dL (33.0-37.0); MEAN PLATELET VOLUME 7.4 fL (7.2-11.7); MONO # 1.2 K/uL (0.0-0.8); NEUT # 14.6 K/uL (1.8-7.0); PLATELET COUNT 294 K/uL (130-400); RBC 4.02 Mil/uL (4.40-5.90); RED CELL DISTRIBUTION WIDTH 18.1 % (11.5-14.5)
[2018-10-02 06:58] LABS: ALB/GLOB RATIO 0.9 (1.0-2.1); ALBUMIN 2.9 g/dL (3.5-5.0); CALCIUM 8.3 mg/dl (8.6-10.4)
[2018-10-02] MEDS: (Novolog) Insulin Aspart, Recombinant 100 u/ml 10 ml vial SC SCH ×4 (07:36→23:06)
[2018-10-02 09:02] LABS: BANDS 3 % (0-2); LYMPHOCYTE 7 % (20-40); MONOCYTE 7 % (0-10); NEUTROPHIL 83 % (50-75); PLATELET ESTIMATE NORMAL (NORMAL); TOTAL CELLS COUNTED 100
[2018-10-02 09:03] LABS: ANISOCYTOSIS MODERATE; POLYCHROMIC SLIGHT; TOXIC GRANULATION PRESENT
[2018-10-02 09:04] LABS: HYPOCHROMIC SLIGHT; LARGE PLATELETS PRESENT
[2018-10-02] MEDS: Saccharomyces Boulardi 250 mg Cap PO SCH ×2 (10:01→17:49)
[2018-10-02] MEDS: guaiFENesin 600 mg ER Tab PO SCH ×2 (10:01→17:49)
[2018-10-02] MEDS: Enoxaparin 40 mg Syringe SC SCH ×2 (10:02→23:03)
[2018-10-02] MEDS ORDERED: Digoxin 500 mcg/2ml (0.5 mg/2ml) Inj IVP STA (19:47)
[2018-10-02 19:53] VITALS: PULSE 129
[2018-10-02] MEDS: Latanoprost 2.5 ml Opht Soln OU SCH (23:04)
--- NOTE | 2018-10-02 23:32 | CP.PCM.PN ---
Subjective - Date & Time of Evaluation Date of Evaluation: 10/02/18 Time of Evaluation: 08:15 - Subjective Subjective: Patient seen and examined at bedside. No cardiac events noted No new complaints Physical Exam - Head Exam Head Exam: NORMOCEPHALIC - Neck Exam Neck exam: Positive for: Normal Inspection - Respiratory Exam Respiratory Exam: NORMAL BREATHING PATTERN - Cardiovascular Exam Cardiovascular Exam: REGULAR RHYTHM, Systolic Murmur 4/6 - Extremities Exam Extremities exam: Positive for: normal inspection Assessment & Plan (1) ACS (acute coronary syndrome) Assessment and Plan: Positive troponin, etiology ?. exam suggestive of Aortic stenosis. Obtain old record from Primary. Echocardiogram and Further management accordingly. Status: Acute (2) Ischemic stroke Assessment and Plan: Work-up in progress and further management according to neurology. Status: Acute For JOSE 09/29 for posiible PFO by ECHO (3) Severe Assessment and Plan: Status: Acute Objective - Vital Signs/Intake and Output Vital Signs (last 24 hours): Temp Pulse Resp BP Pulse Ox 99.4 F 86 16 94/63 L 98 10/02/18 19:51 10/02/18 22:30 10/02/18 22:30 10/02/18 19:51 10/02/18 22:30 Intake and Output: 10/02/18 10/03/18 18:59 06:59 Intake Total 750 Output Total 400 Balance 350 - Medications Medications: Current Medications Acetaminophen (Tylenol 325mg Tab) 650 mg PO Q6 PRN PRN Reason: Fever >100.4 F Last Admin: 10/02/18 00:14 Dose: 650 mg Acetylcysteine (Acetylcysteine 20%) 4 ml INH RQ6 [facility] Last Admin: 10/02/18 19:13 Dose: Not Given Aspirin (Aspirin Chewable) 81 mg PO DAILY [facility] Last Admin: 10/02/18 10:01 Dose: 81 mg Benzonatate (Tessalon Perles) 100 mg PO TID [facility] Last Admin: 10/02/18 17:49 Dose: 100 mg Brimonidine Tartrate (Alphagan 0.2% Opht) 0 ml OU DAILY [facility] Clopidogrel Bisulfate (Plavix) 75 mg PO DAILY [facility] Last Admin: 10/02/18 10:01 Dose: 75 mg Donepezil HCl (Aricept) 5 mg PO HS [facility] Last Admin: 10/02/18 22:30 Dose: 5 mg Finasteride (Proscar) 5 mg PO DAILY [facility] Last Admin: 10/02/18 10:01 Dose: 5 mg Guaifenesin (Mucinex La) 600 mg PO BID [facility] Last Admin: 10/02/18 17:49 Dose: 600 mg Hydroxyzine HCl (Atarax) 10 mg PO Q6 PRN PRN Reason: Agitation Piperacillin Sod/Tazobactam Sod (Zosyn 3.375 Gm Iv Premix) 3.375 gm in 50 mls @ 100 mls/hr IVPB Q6H [facility]; Protocol Last Admin: 10/02/18 23:04 Dose: 100 mls/hr Vancomycin/Sodium Chloride (Vancomycin 1 Gm/Ns 200 Ml) 1 gm in 200 mls @ 133 mls/hr IVPB Q12H [facility]; Protocol Stop: 10/06/18 00:31 Last Admin: 10/02/18 13:15 Dose: Not Given Doxycycline Hyclate 100 mg/ (Sodium Chloride) 100 mls @ 100 mls/hr IVPB Q12H [facility]; Protocol Last Admin: 10/02/18 23:05 Dose: 100 mls/hr Diltiazem HCl 125 mg/ Dextrose 125 mls @ 5 mls/hr IV .Q24H [facility]; Protocol Last Admin: 10/02/18 20:50 Dose: 5 mg/hr, 5 mls/hr Insulin Aspart (Novolog) 0 unit SC [facility]; Protocol Last Admin: 10/02/18 23:06 Dose: Not Given Latanoprost (Xalatan Opht) 0 ml OU HS [facility] Last Admin: 10/02/18 23:04 Dose: 2.5 ml Lorazepam (Ativan) 0.5 mg IVP ONCE PRN PRN Reason: Agitation Last Admin: 09/29/18 11:24 Dose: 0.5 mg Nicotine (Nicoderm Cq) 1 patch TD DAILY [facility] Last Admin: 10/02/18 10:01 Dose: 1 patch Quetiapine Fumarate (Seroquel) 25 mg PO BID [facility] Last Admin: 10/02/18 17:49 Dose: 25 mg Rosuvastatin Calcium (Crestor) 10 mg PO HS [facility] Last Admin: 10/02/18 23:03 Dose: 10 mg Saccharomyces Boulardii (Florastor) 250 mg PO BID [facility] Last Admin: 10/02/18 17:49 Dose: 250 mg - Labs Labs: 10/02/18 06:32 10/02/18 06:32 PT 10.0 SECONDS (9.7-12.2) 09/24/18 18:55 INR 0.9 09/24/18 18:55 APTT 28 SECONDS (21-34) 09/24/18 18:55
[2018-10-03] MEDS: Vancomycin 1 gm/NS 200 ml 1 GM/200 ML BAG IVPB SCH (00:01)
[2018-10-03] MEDS: Piperacill/Tazo 3.375gm in Dex 3.375 GM/50 ML BAG IVPB SCH ×4 (04:40→22:17)
[2018-10-03] MEDS: Acetylcysteine 20% Inhal Soln (4ml) INH SCH ×2 (06:11→13:08)
[2018-10-03 06:13] LABS: BASO # 0.1 K/uL (0.0-0.2); BASO % 0.4 % (0.0-2.0); EOS # 0.2 K/uL (0.0-0.7); EOS % 1.4 % (0.0-4.0); HEMOGLOBIN 10.8 g/dL (12.0-18.0); LYMPH # 1.2 K/uL (1.0-4.3); LYMPH % 9.7 % (20.0-40.0); MEAN CELL VOLUME 86.1 fL (80.0-94.0); MEAN CORPUSCULAR HEMOGLOBIN 27.6 pg (27.0-31.0); MEAN PLATELET VOLUME 7.5 fL (7.2-11.7); MONO % 7.7 % (0.0-10.0); NEUT % 80.8 % (50.0-75.0); PLATELET COUNT 307 K/uL (130-400); RBC 3.92 Mil/uL (4.40-5.90); RED CELL DISTRIBUTION WIDTH 18.2 % (11.5-14.5); WHITE BLOOD COUNT 12.4 K/uL (4.8-10.8)
[2018-10-03 06:38] LABS: ALB/GLOB RATIO 0.9 (1.0-2.1); ALBUMIN 2.9 g/dL (3.5-5.0); ALT/SGPT 20 U/L (21-72); AST/SGOT 24 U/L (17-59); BLOOD UREA NITROGEN 32 mg/dL (9-20); CALCIUM 8.5 mg/dl (8.6-10.4); GFR NON-AFRICAN AMERICAN 53
[2018-10-03 08:08] LABS: ANISOCYTOSIS MODERATE; BANDS 1 % (0-2); HYPOCHROMIC SLIGHT; LYMPHOCYTE 9 % (20-40); MONOCYTE 9 % (0-10); NEUTROPHIL 81 % (50-75); PLATELET ESTIMATE NORMAL (NORMAL); POLYCHROMIC SLIGHT; TOTAL CELLS COUNTED 100
[2018-10-03 08:09] LABS: POIKILOCYTOSIS SLIGHT; SCHISTOCYTES SLIGHT
[2018-10-03] MEDS: (Novolog) Insulin Aspart, Recombinant 100 u/ml 10 ml vial SC SCH ×4 (08:19→22:42)
--- NOTE | 2018-10-03 09:07 | CP.PCM.CON ---
History of Present Illness - History of Present Illness History of Present Illness: ICU evaluation was called for elevated heart rate. HPI: Patient is a 83-year-old male with a history of dementia and very poor historian admitted initially in the emergency room because of the altered mental status and confusion. Glaucoma and recent sepsis. Has a history of bradycardia dementia ICU evaluation was called because of the worsening tachycardia, hypotension. Patient received a digoxin initially. But the heart rate was 160 -180 and the patient was also having some difficult time in breathing. The patient was transferred to the intensive care unit. Cardizem drip started. The heart rate is controlled well. Family history none Allergies no known drug allergy Surgical history gallbladder removal hernia repair stomach correction Social history unclear, history of former smoking I spoke to the electrical tech/project manager. Patient has a severe aortic stenosis. And associate with a severe atrial flutter and fibrillation. Patient initially refused intervention for cardiology point of view. Conservative treatment suggested. As the patient is having worsening heart rate decided to bring the patient to the intensive care unit. Assessment and recommendation: 83-year-old male with dementia admitted to the hospital with confusion and agitation. Now he is still confused. Refusing treatment. We will transfer the patient to ICU for close monitoring. Cardiac monitoring. Cardizem drip. We will follow the patient Past Patient History - Past Medical History & Family History Past Medical History?: No - Past Social History Smoking Status: Unknown If Ever Smoked - CARDIAC Other/Comment: High Triglyceride - MUSCULOSKELETAL/RHEUMATOLOGICAL Hx Falls: Yes - GENITOURINARY/GYNECOLOGICAL Hx Prostate Problems: Yes - PSYCHIATRIC Hx Substance Use: No - SURGICAL HISTORY Hx Cholecystectomy: Yes - ANESTHESIA Hx Anesthesia: Yes Hx Anesthesia Reactions: No Meds Allergies/Adverse Reactions: Allergies Allergy/AdvReac Type Severity Reaction Status Date / Time No Known Allergies Allergy Verified 09/24/18 18:23 - Medications Medications: Current Medications Acetaminophen (Tylenol 325mg Tab) 650 mg PO Q6 PRN PRN Reason: Fever >100.4 F Last Admin: 10/02/18 00:14 Dose: 650 mg Albuterol/Ipratropium (Duoneb 3 Mg/0.5 Mg (3 Ml) Ud) 3 ml INH RQ6 PRN PRN Reason: Cough Apixaban (Eliquis) 2.5 mg PO BID [facility] Stop: 10/10/18 10:01 Aspirin (Aspirin Chewable) 81 mg PO DAILY [facility] Last Admin: 10/02/18 10:01 Dose: 81 mg Benzonatate (Tessalon Perles) 100 mg PO TID [facility] Last Admin: 10/02/18 17:49 Dose: 100 mg Brimonidine Tartrate (Alphagan 0.2% Opht) 0 ml OU DAILY [facility] Clopidogrel Bisulfate (Plavix) 75 mg PO DAILY [facility] Last Admin: 10/02/18 10:01 Dose: 75 mg Donepezil HCl (Aricept) 5 mg PO HS [facility] Last Admin: 10/02/18 22:30 Dose: 5 mg Finasteride (Proscar) 5 mg PO DAILY [facility] Last Admin: 10/02/18 10:01 Dose: 5 mg Guaifenesin (Mucinex La) 600 mg PO BID [facility] Last Admin: 10/02/18 17:49 Dose: 600 mg Piperacillin Sod/Tazobactam Sod (Zosyn 3.375 Gm Iv Premix) 3.375 gm in 50 mls @ 100 mls/hr IVPB Q6H [facility]; Protocol Last Admin: 10/03/18 04:40 Dose: 100 mls/hr Doxycycline Hyclate 100 mg/ (Sodium Chloride) 100 mls @ 100 mls/hr IVPB Q12H [facility]; Protocol Last Admin: 10/02/18 23:05 Dose: 100 mls/hr Diltiazem HCl 125 mg/ Dextrose 125 mls @ 5 mls/hr IV .Q24H [facility]; Protocol Last Admin: 10/02/18 20:50 Dose: 5 mg/hr, 5 mls/hr Insulin Aspart (Novolog) 0 unit SC ACHS [facility]; Protocol Last Admin: 10/03/18 08:19 Dose: Not Given Latanoprost (Xalatan Opht) 0 ml OU HS [facility] Last Admin: 10/02/18 23:04 Dose: 2.5 ml Lorazepam (Ativan) 0.5 mg IVP ONCE PRN PRN Reason: Agitation Last Admin: 09/29/18 11:24 Dose: 0.5 mg Nicotine (Nicoderm Cq) 1 patch TD DAILY [facility] Last Admin: 10/02/18 10:01 Dose: 1 patch Quetiapine Fumarate (Seroquel) 25 mg PO BID [facility] Last Admin: 10/02/18 17:49 Dose: 25 mg Rosuvastatin Calcium (Crestor) 10 mg PO HS [facility] Last Admin: 10/02/18 23:03 Dose: 10 mg Saccharomyces Boulardii (Florastor) 250 mg PO BID [facility] Last Admin: 10/02/18 17:49 Dose: 250 mg Verapamil HCl (Calan Sr Tab) 180 mg PO DAILY [facility] Results - Vital Signs Recent Vital Signs: Last Vital Signs Temp 99.2 F 10/03/18 04:00 Pulse 72 10/03/18 06:00 Resp 22 10/03/18 06:00 BP 111/55 L 10/03/18 04:53 Pulse Ox 98 10/03/18 06:00 - Labs Result Diagrams: 10/03/18 06:05 10/03/18 06:05 Labs: Laboratory Results - last 24 hr 10/02/18 10/02/18 10/02/18 10:43 10:57 16:21 WBC RBC Hgb Hct MCV MCH MCHC RDW Plt Count MPV Neut % (Auto) Lymph % (Auto) Sterling % (Auto) Eos % (Auto) Baso % (Auto) Neut # (Auto) Lymph # (Auto) Sterling # (Auto) Eos # (Auto) Baso # (Auto) Neutrophils % (Manual) Band Neutrophils % Lymphocytes % (Manual) Monocytes % (Manual) Platelet Estimate Polychromasia Hypochromasia (manual) Poikilocytosis (manual Anisocytosis (manual) Schistocytes Sodium Potassium Chloride Carbon Dioxide Anion Gap BUN Creatinine Est GFR ( Amer) Est GFR (Non-Af Amer) POC Glucose (mg/dL) 169 H 139 H Random Glucose Calcium Phosphorus Magnesium Total Bilirubin AST ALT Alkaline Phosphatase Total Protein Albumin Globulin Albumin/Globulin Ratio Vancomycin Trough 27.3 H 10/02/18 10/02/18 10/03/18 21:13 23:00 06:05 WBC 12.4 H RBC 3.92 L Hgb 10.8 L Hct 33.8 L MCV 86.1 MCH 27.6 MCHC 32.0 L RDW 18.2 H Plt Count 307 MPV 7.5 Neut % (Auto) 80.8 H Lymph % (Auto) 9.7 L Sterling % (Auto) 7.7 Eos % (Auto) 1.4 Baso % (Auto) 0.4 Neut # (Auto) 10.0 H Lymph # (Auto) 1.2 Sterling # (Auto) 1.0 H Eos # (Auto) 0.2 Baso # (Auto) 0.1 Neutrophils % (Manual) 81 H Band Neutrophils % 1 Lymphocytes % (Manual) 9 L Monocytes % (Manual) 9 Platelet Estimate Normal Polychromasia Slight Hypochromasia (manual) Slight Poikilocytosis (manual Slight Anisocytosis (manual) Moderate Schistocytes Slight Sodium Potassium Chloride Carbon Dioxide Anion Gap BUN Creatinine Est GFR ( Amer) Est GFR (Non-Af Amer) POC Glucose (mg/dL) 113 H 122 H Random Glucose Calcium Phosphorus Magnesium Total Bilirubin AST ALT Alkaline Phosphatase Total Protein Albumin Globulin Albumin/Globulin Ratio Vancomycin Trough 10/03/18 10/03/18 06:05 08:18 WBC RBC Hgb Hct MCV MCH MCHC RDW Plt Count MPV Neut % (Auto) Lymph % (Auto) Sterling % (Auto) Eos % (Auto) Baso % (Auto) Neut # (Auto) Lymph # (Auto) Sterling # (Auto) Eos # (Auto) Baso # (Auto) Neutrophils % (Manual) Band Neutrophils % Lymphocytes % (Manual) Monocytes % (Manual) Platelet Estimate Polychromasia Hypochromasia (manual) Poikilocytosis (manual Anisocytosis (manual) Schistocytes Sodium 142 Potassium 4.1 Chloride 107 Carbon Dioxide 32 H Anion Gap 7 L BUN 32 H Creatinine 1.3 Est GFR ( Amer) > 60 Est GFR (Non-Af Amer) 53 POC Glucose (mg/dL) 96 Random Glucose 89 Calcium 8.5 L Phosphorus 4.0 Magnesium 2.4 H Total Bilirubin 0.4 AST 24 ALT 20 L Alkaline Phosphatase 75 Total Protein 6.1 L Albumin 2.9 L Globulin 3.2 Albumin/Globulin Ratio 0.9 L Vancomycin Trough
[2018-10-03] MEDS: Saccharomyces Boulardi 250 mg Cap PO SCH ×2 (09:30→17:47)
[2018-10-03] MEDS: Brimonidine 0.2% Opth Sol (5ml) OU SCH (09:31)
[2018-10-03] MEDS: guaiFENesin 600 mg ER Tab PO SCH ×2 (09:50→17:47)
[2018-10-03] MEDS: Verapamil 180 mg ER Tab PO SCH (09:54)
[2018-10-03] MEDS ORDERED: Verapamil 240 mg ER Tab PO SCH ×2 (10:00)
--- NOTE | 2018-10-03 10:38 | CP.PCM.PN ---
Subjective - Date & Time of Evaluation Date of Evaluation: 10/03/18 Time of Evaluation: 10:34 - Subjective Subjective: Patient awake alert, volitional mutism (answered questions and states he only speaks irish, but when I turned on the label rewinder #[id number] Zulema, patient refuses to answer any questions), Patient simply closes his eyes and sleeping comfortab ly Objective - Vital Signs/Intake and Output Vital Signs (last 24 hours): Temp Pulse Resp BP Pulse Ox 99.2 F 72 22 111/55 L 98 10/03/18 04:00 10/03/18 06:00 10/03/18 06:00 10/03/18 04:53 10/03/18 06:00 Intake and Output: 10/03/18 10/03/18 06:59 18:59 Intake Total 1080 Output Total 300 Balance 780 - Medications Medications: Current Medications Acetaminophen (Tylenol 325mg Tab) 650 mg PO Q6 PRN PRN Reason: Fever >100.4 F Last Admin: 10/02/18 00:14 Dose: 650 mg Albuterol/Ipratropium (Duoneb 3 Mg/0.5 Mg (3 Ml) Ud) 3 ml INH RQ6 PRN PRN Reason: Cough Apixaban (Eliquis) 2.5 mg PO BID [facility] Stop: 10/10/18 10:01 Last Admin: 10/03/18 09:33 Dose: 2.5 mg Aspirin (Aspirin Chewable) 81 mg PO DAILY [facility] Last Admin: 10/03/18 09:31 Dose: 81 mg Benzonatate (Tessalon Perles) 100 mg PO TID [facility] Last Admin: 10/03/18 09:51 Dose: 100 mg Brimonidine Tartrate (Alphagan 0.2% Opht) 0 ml OU DAILY [facility] Last Admin: 10/03/18 09:31 Dose: 1 drop Clopidogrel Bisulfate (Plavix) 75 mg PO DAILY [facility] Last Admin: 10/03/18 09:31 Dose: 75 mg Donepezil HCl (Aricept) 5 mg PO HS [facility] Last Admin: 10/02/18 22:30 Dose: 5 mg Finasteride (Proscar) 5 mg PO DAILY [facility] Last Admin: 10/03/18 09:31 Dose: 5 mg Guaifenesin (Mucinex La) 600 mg PO BID [facility] Last Admin: 10/03/18 09:50 Dose: 600 mg Piperacillin Sod/Tazobactam Sod (Zosyn 3.375 Gm Iv Premix) 3.375 gm in 50 mls @ 100 mls/hr IVPB Q6H [facility]; Protocol Last Admin: 10/03/18 09:35 Dose: 100 mls/hr Doxycycline Hyclate 100 mg/ (Sodium Chloride) 100 mls @ 100 mls/hr IVPB Q12H [facility] ; Protocol Last Admin: 10/03/18 09:30 Dose: 100 mls/hr Diltiazem HCl 125 mg/ Dextrose 125 mls @ 5 mls/hr IV .Q24H [facility]; Protocol Last Admin: 10/02/18 20:50 Dose: 5 mg/hr, 5 mls/hr Insulin Aspart (Novolog) 0 unit SC ACHS [facility]; Protocol Last Admin: 10/03/18 08:19 Dose: Not Given Latanoprost (Xalatan Opht) 0 ml OU HS [facility] Last Admin: 10/02/18 23:04 Dose: 2.5 ml Lorazepam (Ativan) 0.5 mg IVP ONCE PRN PRN Reason: Agitation Last Admin: 09/29/18 11:24 Dose: 0.5 mg Nicotine (Nicoderm Cq) 1 patch TD DAILY [facility] Last Admin: 10/03/18 09:50 Dose: 1 patch Quetiapine Fumarate (Seroquel) 25 mg PO BID PRN PRN Reason: Agitation Rosuvastatin Calcium (Crestor) 10 mg PO HS [facility] Last Admin: 10/02/18 23:03 Dose: 10 mg Saccharomyces Boulardii (Florastor) 250 mg PO BID [facility] Last Admin: 10/03/18 09:30 Dose: 250 mg Verapamil HCl (Calan Sr Tab) 180 mg PO DAILY [facility] Last Admin: 10/03/18 09:54 Dose: 180 mg - Labs Labs: 10/03/18 06:05 10/03/18 06:05 PT 10.0 SECONDS (9.7-12.2) 09/24/18 18:55 INR 0.9 09/24/18 18:55 APTT 28 SECONDS (21-34) 09/24/18 18:55 - Head Exam Head Exam: ATRAUMATIC, NORMAL INSPECTION - Eye Exam Eye Exam: EOMI - ENT Exam ENT Exam: Mucous Membranes Moist - Respiratory Exam Respiratory Exam: Rales, NORMAL BREATHING PATTERN. absent: Accessory Muscle Use, Chest Wall Tenderness, Rhonchi, Stridor - Cardiovascular Exam Cardiovascular Exam: Irregular Rhythm, +S1, +S2, Murmur - GI/Abdominal Exam GI & Abdominal Exam: Soft, Normal Bowel Sounds - Extremities Exam Extremities Exam: Normal Inspection - Neurological Exam Neurological Exam: Alert, Awake - Skin Skin Exam: Normal Color, Warm Assessment and Plan - Assessment and Plan (Free Text) Assessment: A-fib: rate contorolled, start oral verapamil and titrate off cardizem (at very low dose), AC with eliquis -Breathing comfortably -cough: suspect URTI, check CT chest r/o ILD -continue all other treatment -BP remains stable. -continue to monitor
[2018-10-03] MEDS ORDERED: Sodium Chloride 0.9% 1,000 ML IV ONE (11:20)
[2018-10-03] MEDS: Albuterol-Ipratrop 3 mg / 0.5 (3 ml) UD INH PRN ×2 (13:08→20:06)
--- NOTE | 2018-10-03 13:53 | CT ---
Date of service: 10/03/2018 PROCEDURE: CT Chest without contrast HISTORY: r/o ILD COMPARISON: Correlations made did chest radiograph dated 10/01/2018. TECHNIQUE: Contiguous axial images were obtained through the chest without intravenous contrast enhancement. Sagittal and coronal reconstructions were performed. Radiation dose: Total exam DLP = 178.21 mGy-cm. This CT exam was performed using one or more of the following dose reduction techniques: Automated exposure control, adjustment of the mA and/or kV according to patient size, and/or use of iterative reconstruction technique. FINDINGS: LUNGS: Bilateral lower lobe consolidations. Adjacent interstitial changes may be related to the acute process. Secretions within the esophagus and hypopharynx. MEDIASTINUM: Ectasia of the ascending thoracic aorta measuring up to 3.7 cm. Cardiomegaly. Main pulmonary artery unremarkable. No vascular congestion. Prominent precarinal lymph node measuring 1.8 x 1.2 cm. Prominent AP window lymph node measuring 1.7 x 1.3 cm. Additional prominent mediastinal lymph nodes. Aortic atherosclerotic calcification. PLEURA: No pleural fluid. No pneumothorax. BONES: Old right-sided rib fractures. No fracture. No destructive lesion. UPPER ABDOMEN: Left renal cyst. OTHER FINDINGS: None. IMPRESSION: Bilateral lower lobe consolidations. Adjacent interstitial changes may be related to the acute process. Follow-up to resolution. Prominent mediastinal lymph nodes, nonspecific. Additional findings as above.
--- NOTE | 2018-10-03 20:15 | CP.PCM.PN ---
Subjective - Date & Time of Evaluation Date of Evaluation: 10/03/18 Time of Evaluation: 15:10 - Subjective Subjective: Pt seen and examined. Denes chest pain and dyspnea Physical examination - Assessment and Plan (Free Text) Assessment: Appears: Non-toxic, No Acute Distress, Chronically Ill - Head Exam Head Exam: ATRAUMATIC - Eye Exam Eye Exam: EOMI - Neck Exam Neck Exam: Full ROM. absent: Lymphadenopathy - Respiratory Exam Respiratory Exam: Rales, NORMAL BREATHING PATTERN. absent: Clear to Ausculation Bilateral, Rhonchi, Wheezes, Respiratory Distress, Stridor Additional comments: coughing a lot - Cardiovascular Exam Cardiovascular Exam: REGULAR RHYTHM, +S1, +S2 - GI/Abdominal Exam GI & Abdominal Exam: Soft, Normal Bowel Sounds. absent: Tenderness - Extremities Exam Extremities Exam: Full ROM. absent: Calf Tenderness - Back Exam Back Exam: NORMAL INSPECTION. absent: CVA tenderness (L), CVA tenderness (R) - Neurological Exam Neurological Exam: Awake. absent: Oriented x3 (ANOx1; only to self ) - Psychiatric Exam Additional comments: labile - Skin Skin Exam: Warm Assessment and Plan - Assessment and Plan (Free Text) Assessment: Patient is a 83 year old M who was admitted for Altered mental status, found to be acute on chronic stroke with symptomatic severe aortic stenosis Acute on chronic CVA -CVA possibly embolic in nature -Continue ASA 81mg PO daily, Plavix 75mg PO daily -Continue Crestor 10mg PO HS -echo w/ bubble study showed no PFO, severe , and diastolic dysfunction, LVEF 65-70%; please refer to full report -Patient unable to complete MRA neck -Patient cleared from neurological standpoint as per neuro -Neurology on consult, Dr Manrique, help appreciated Imaging: -CT head: showed multiple old infarcts; no acute infarct seen; please refer to full report -Brain MRI:There are 2 tiny focal areas of mild restricted diffusion, both of which are located in the posterior temporoparietal cortices left slightly larger and the slightly more anterior in location on the right side. Note that the both of these foci are adjacent to, abutting areas of larger chronic infarcts left larger than right... Both of these foci could represent small acute/subacute areas of reversible ischemia (TIAs) or tiny acute/subacute infarcts. Note that a small components of shine through artifact cannot be excluded. No additional focal areas of abnormal restricted diffusion identified. Chronic confluent white matter ischemic changes with more discrete bifrontal infarcts left larger than right. There also chronic bilateral cerebellar infarcts -Echocardiogram: EF 65-70%, diastolic dysfunction, severe valvular aortic stenosis, aortic valve area 0.76cm2, borderline MVP -MRA Head: no occlusion or significant stenosis of [place] arterial anatomy. 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 Lujan; cardiology; thank you for your help NSTEMI; resolved -EKG showed Nonspecific t-wave abnormality -Continue therapeutic lovenox, plavix daily -Troponins 0.1230, 0.1230, 0.0940 -Patient will need cardiac cath and TVR pending neuro clearance Pneumonia -Afebrile, no leukocytosis, procalcitonin was low -CXR showed consolidation in right middle lobes and right lower lobe, patchy infiltrate in left lower lobe (see full report) -Antibiotics: Zosyn 3.375 Q8H (started 09/25/18) and Vancomycin 1g Q24H (started 09/25/18) -Continue Florastor 250mg PO BID -Continue Mucinex 600mg PO BID, Duonebs 3ml INH RQ6H PRN shortness of breath -Tessalon Pearles 100mg PO TID added for cough suppression pt continues to have fevers 09/30-->10/01 -Vanco 1g Q12H, Zosyn 3.375 Q6H, add doxycycline 100mg BID -WBC elevated -f/u repeat chest x-ray 10/01 Suicidal Ideation; resolved -Patient placed on 1:1 for safety -Psych on consult, Dr Brown, help appreciated Hx of Dementia -Donepizil 5mg daily -Continue Seroquel 25mg PO HS for agitation -Dr. Brown; psychiatry; thank you for your help Hx of BPH -Continue Finasteride 5mg PO daily Hx of bacteremia; treated at [facility] 3mo ago -Continue Vanc 1g Q24h and Zosyn 3.375 Q8H -Blood cultures (09/24/18): no growth after 5 days Hyperglycemia -Hemoglobin a1c 5.1 GI/DVT ppx: -Lovenox therapeutic 40mg SC BID -hx of falls; fall precautions -PT/OT eval As per Patient's Son and 's request recommend medical management only. They do not want cardiac cath or TAVR Objective - Vital Signs/Intake and Output Vital Signs (last 24 hours): Temp Pulse Resp BP Pulse Ox 97.7 F 68 32 H 112/64 96 10/03/18 16:00 10/03/18 18:31 10/03/18 18:31 10/03/18 18:31 10/03/18 18:31 Intake and Output: 10/03/18 10/04/18 18:59 06:59 Intake Total 2110 Output Total 550 Balance 1560 - Medications Medications: Current Medications Acetaminophen (Tylenol 325mg Tab) 650 mg PO Q6 PRN PRN Reason: Fever >100.4 F Last Admin: 10/02/18 00:14 Dose: 650 mg Albuterol/Ipratropium (Duoneb 3 Mg/0.5 Mg (3 Ml) Ud) 3 ml INH RQ6 PRN PRN Reason: Cough Last Admin: 10/03/18 20:06 Dose: 3 ml Apixaban (Eliquis) 2.5 mg PO BID [facility] Stop: 10/10/18 10:01 Last Admin: 10/03/18 17:47 Dose: 2.5 mg Aspirin (Aspirin Chewable) 81 mg PO DAILY [facility] Last Admin: 10/03/18 09:31 Dose: 81 mg Benzonatate (Tessalon Perles) 100 mg PO TID [facility] Last Admin: 10/03/18 17:47 Dose: 100 mg Brimonidine Tartrate (Alphagan 0.2% Opht) 0 ml OU DAILY [facility] Last Admin: 10/03/18 09:31 Dose: 1 drop Clopidogrel Bisulfate (Plavix) 75 mg PO DAILY [facility] Last Admin: 10/03/18 09:31 Dose: 75 mg Donepezil HCl (Aricept) 5 mg PO HS [facility] Last Admin: 10/02/18 22:30 Dose: 5 mg Finasteride (Proscar) 5 mg PO DAILY [facility] Last Admin: 10/03/18 09:31 Dose: 5 mg Guaifenesin (Mucinex La) 600 mg PO BID [facility] Last Admin: 10/03/18 17:47 Dose: 600 mg Piperacillin Sod/Tazobactam Sod (Zosyn 3.375 Gm Iv Premix) 3.375 gm in 50 mls @ 100 mls/hr IVPB Q6H [facility]; Protocol Last Admin: 10/03/18 17:47 Dose: 100 mls/hr Doxycycline Hyclate 100 mg/ (Sodium Chloride) 100 mls @ 100 mls/hr IVPB Q12H [facility]; Protocol Last Admin: 10/03/18 09:30 Dose: 100 mls/hr Insulin Aspart (Novolog) 0 unit SC ACHS [facility]; Protocol Last Admin: 10/03/18 17:55 Dose: Not Given Latanoprost (Xalatan Opht) 0 ml OU HS [facility] Last Admin: 10/02/18 23:04 Dose: 2.5 ml Lorazepam (Ativan) 0.5 mg IVP ONCE PRN PRN Reason: Agitation Last Admin: 09/29/18 11:24 Dose: 0.5 mg Nicotine (Nicoderm Cq) 1 patch TD DAILY [facility] Last Admin: 10/03/18 09:50 Dose: 1 patch Quetiapine Fumarate (Seroquel) 25 mg PO BID PRN PRN Reason: Agitation Rosuvastatin Calcium (Crestor) 10 mg PO HS [facility] Last Admin: 10/02/18 23:03 Dose: 10 mg Saccharomyces Boulardii (Florastor) 250 mg PO BID [facility] Last Admin: 10/03/18 17:47 Dose: 250 mg Verapamil HCl (Calan Sr Tab) 180 mg PO DAILY [facility] Last Admin: 10/03/18 09:54 Dose: 180 mg - Labs Labs: 10/03/18 06:05 10/03/18 06:05 PT 10.0 SECONDS (9.7-12.2) 09/24/18 18:55 INR 0.9 09/24/18 18:55 APTT 28 SECONDS (21-34) 09/24/18 18:55
[2018-10-03] MEDS: Latanoprost 2.5 ml Opht Soln OU SCH (22:12)
[2018-10-04] MEDS: Piperacill/Tazo 3.375gm in Dex 3.375 GM/50 ML BAG IVPB SCH ×2 (03:27→09:00)
[2018-10-04 06:29] LABS: BASO % 0.4 % (0.0-2.0); EOS # 0.1 K/uL (0.0-0.7); HEMOGLOBIN 10.2 g/dL (12.0-18.0); LYMPH % 9.8 % (20.0-40.0); MEAN CELL VOLUME 85.6 fL (80.0-94.0); MEAN CORPUSCULAR HEMOGLOBIN 27.7 pg (27.0-31.0); MEAN CORPUSCULAR HGB CONC 32.4 g/dL (33.0-37.0); MEAN PLATELET VOLUME 7.5 fL (7.2-11.7); MONO # 0.7 K/uL (0.0-0.8); MONO % 7.4 % (0.0-10.0); NEUT % 81.4 % (50.0-75.0); PLATELET COUNT 352 K/uL (130-400); RBC 3.67 Mil/uL (4.40-5.90); RED CELL DISTRIBUTION WIDTH 17.7 % (11.5-14.5); WHITE BLOOD COUNT 9.9 K/uL (4.8-10.8)
[2018-10-04 06:31] LABS: ALB/GLOB RATIO 0.9 (1.0-2.1); ALT/SGPT 22 U/L (21-72); AST/SGOT 29 U/L (17-59); BLOOD UREA NITROGEN 29 mg/dL (9-20); CALCIUM 8.8 mg/dl (8.6-10.4); GFR NON-AFRICAN AMERICAN 58
--- NOTE | 2018-10-04 07:46 | CP.PCM.PN ---
Subjective - Date & Time of Evaluation Date of Evaluation: 10/04/18 Time of Evaluation: 07:45 - Subjective Subjective: Medicine Progress Note - Dr Norris's Service Patient seen and examined at bedside. Per nursing patient was agitated last night after his family members left and wanted to leave the hospital. Still coughing. Breathing is improved. Offers no other complaints at this time. 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 Objective - Vital Signs/Intake and Output Vital Signs (last 24 hours): Temp Pulse Resp BP Pulse Ox 98.7 F 82 25 H 139/81 95 10/04/18 04:00 10/04/18 04:00 10/04/18 04:00 10/04/18 04:00 10/04/18 04:00 Intake and Output: 10/04/18 10/04/18 06:59 18:59 Intake Total 295 Output Total 200 Balance 95 - Medications Medications: Current Medications Acetaminophen (Tylenol 325mg Tab) 650 mg PO Q6 PRN PRN Reason: Fever >100.4 F Last Admin: 10/02/18 00:14 Dose: 650 mg Albuterol/Ipratropium (Duoneb 3 Mg/0.5 Mg (3 Ml) Ud) 3 ml INH RQ6 PRN PRN Reason: Cough Last Admin: 10/03/18 20:06 Dose: 3 ml Apixaban (Eliquis) 2.5 mg PO BID [facility] Stop: 10/10/18 10:01 Last Admin: 10/03/18 17:47 Dose: 2.5 mg Aspirin (Aspirin Chewable) 81 mg PO DAILY [facility] Last Admin: 10/03/18 09:31 Dose: 81 mg Benzonatate (Tessalon Perles) 100 mg PO TID [facility] Last Admin: 10/03/18 17:47 Dose: 100 mg Brimonidine Tartrate (Alphagan 0.2% Opht) 0 ml OU DAILY [facility] Last Admin: 10/03/18 09:31 Dose: 1 drop Clopidogrel Bisulfate (Plavix) 75 mg PO DAILY [facility] Last Admin: 10/03/18 09:31 Dose: 75 mg Donepezil HCl (Aricept) 5 mg PO HS [facility] Last Admin: 10/03/18 22:09 Dose: 5 mg Finasteride (Proscar) 5 mg PO DAILY [facility] Last Admin: 10/03/18 09:31 Dose: 5 mg Guaifenesin (Mucinex La) 600 mg PO BID [facility] Last Admin: 10/03/18 17:47 Dose: 600 mg Piperacillin Sod/Tazobactam Sod (Zosyn 3.375 Gm Iv Premix) 3.375 gm in 50 mls @ 100 mls/hr IVPB Q6H [facility]; Protocol Last Admin: 10/04/18 03:27 Dose: 100 mls/hr Doxycycline Hyclate 100 mg/ (Sodium Chloride) 100 mls @ 100 mls/hr IVPB Q12H [facility]; Protocol Last Admin: 10/03/18 22:11 Dose: 100 mls/hr Insulin Aspart (Novolog) 0 unit SC ACHS [facility]; Protocol Last Admin: 10/03/18 22:42 Dose: Not Given Latanoprost (Xalatan Opht) 0 ml OU HS [facility] Last Admin: 10/03/18 22:12 Dose: 2.5 ml Lorazepam (Ativan) 0.5 mg IVP ONCE PRN PRN Reason: Agitation Last Admin: 10/04/18 00:14 Dose: 0.5 mg Nicotine (Nicoderm Cq) 1 patch TD DAILY [facility] Last Admin: 10/03/18 09:50 Dose: 1 patch Quetiapine Fumarate (Seroquel) 25 mg PO BID PRN PRN Reason: Agitation Last Admin: 10/03/18 22:11 Dose: 25 mg Rosuvastatin Calcium (Crestor) 10 mg PO HS [facility] Last Admin: 10/03/18 22:10 Dose: 10 mg Saccharomyces Boulardii (Florastor) 250 mg PO BID [facility] Last Admin: 10/03/18 17:47 Dose: 250 mg Verapamil HCl (Calan Sr Tab) 180 mg PO DAILY [facility] Last Admin: 10/03/18 09:54 Dose: 180 mg - Labs Labs: 10/04/18 06:10 10/04/18 06:09 PT 10.0 SECONDS (9.7-12.2) 09/24/18 18:55 INR 0.9 09/24/18 18:55 APTT 28 SECONDS (21-34) 09/24/18 18:55 - Constitutional Appears: No Acute Distress - Head Exam Head Exam: ATRAUMATIC, NORMAL INSPECTION - Eye Exam Eye Exam: EOMI, Normal appearance - ENT Exam ENT Exam: Mucous Membranes Dry - Respiratory Exam Respiratory Exam: Rhonchi, NORMAL BREATHING PATTERN. absent: Rales, Wheezes - Cardiovascular Exam Cardiovascular Exam: REGULAR RHYTHM, +S1, +S2 - GI/Abdominal Exam GI & Abdominal Exam: Soft. absent: Tenderness - Extremities Exam Extremities Exam: Normal Inspection. absent: Calf Tenderness - Neurological Exam Neurological Exam: Alert, Awake - Psychiatric Exam Psychiatric exam: Anxious, Normal Mood - Skin Skin Exam: Normal Color Assessment and Plan - Assessment and Plan (Free Text) Assessment: Patient is a 83 year old M who was admitted for Altered mental status, found to be acute on chronic stroke with symptomatic severe aortic stenosis Acute on chronic CVA -Continue ASA 81mg PO daily -Plavix 75 mg PO daily discontinued 2/2 risk of bleeding -Continue Crestor 10mg PO HS -Echo w/ bubble study showed no PFO, severe , and diastolic dysfunction, LVEF 65-70%; please refer to full report -Patient unable to complete MRA neck -Patient cleared from neurological standpoint as per neuro -Neurology on consult, Dr Manrique, yovani appreciated -Physical therapy ordered Imaging: -CT head: showed multiple old infarcts; no acute infarct seen; please refer to full report -Brain MRI:There are 2 tiny focal areas of mild restricted diffusion, both of which are located in the posterior temporoparietal cortices left slightly larger and the slightly more anterior in location on the right side. Note that the both of these foci are adjacent to, abutting areas of larger chronic infarcts left larger than right... Both of these foci could represent small acute/subacute areas of reversible ischemia (TIAs) or tiny acute/subacute infarcts. Note that a small components of shine through artifact cannot be excluded. No additional focal areas of abnormal restricted diffusion identified. Chronic confluent white matter ischemic changes with more discrete bifrontal infarcts left larger than right. There also chronic bilateral cerebellar infarcts -Echocardiogram: EF 65-70%, diastolic dysfunction, severe valvular aortic stenosis, aortic valve area 0.76cm2, borderline MVP -MRA Head: no occlusion or significant stenosis of [place] arterial anatomy. 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 Lujan; cardiology; thank you for your help NSTEMI; resolved -EKG showed Nonspecific t-wave abnormality -Continue therapeutic lovenox, plavix daily -Troponins 0.1230, 0.1230, 0.0940 -Patient will need cardiac cath and TVR pending neuro clearance -Dr. Lujan; cardiology; thank you for your help Pneumonia -Afebrile, no leukocytosis, procalcitonin was low -CXR showed consolidation in right middle lobes and right lower lobe, patchy infiltrate in left lower lobe (see full report) -CT chest: bilateral lower lobe consolidation, adjacent interstitial changes. Prominent mediastinal lymph nodes. Ectasia of ascending thoracic aorta 3.7cm (see full report) -Antibiotics: Avelox 400mg PO daily x 5 days -Zosyn 3.375 Q8H (started 09/25/18-10/04/18) and Vancomycin 1g Q24H (started 09/25/18-10/03/18) -Continue Florastor 250mg PO BID -Continue Mucinex 600mg PO BID, Duonebs 3ml INH RQ6H PRN shortness of breath -Tessalon Pearles 100mg PO TID added for cough suppression Suicidal Ideation; resolved -Patient placed on 1:1 for safety -Psych on consult, Dr Brown, help appreciated Hx of Dementia -Donepizil 5mg daily -Continue Seroquel 25mg PO BID prn for agitation -Dr. Brown; psychiatry; thank you for your help Hx of BPH -Continue Finasteride 5mg PO daily Hx of bacteremia; treated at [facility] 3mo ago -Blood cultures (09/24/18): no growth after 5 days Hyperglycemia -Hemoglobin a1c 5.1 GI/DVT ppx: -Eliquis 2.5 mg PO BID -hx of falls; fall precautions -PT/OT eval Plan discussed and seen with Dr. Myrna Moreno DO PGY-2
[2018-10-04 07:50] LABS: LYMPHOCYTE 9 % (20-40); MONOCYTE 4 % (0-10); NEUTROPHIL 87 % (50-75); PLATELET ESTIMATE NORMAL (NORMAL); TOTAL CELLS COUNTED 100
[2018-10-04 07:51] LABS: ANISOCYTOSIS SLIGHT
[2018-10-04] MEDS: (Novolog) Insulin Aspart, Recombinant 100 u/ml 10 ml vial SC SCH ×4 (08:00→22:00)
[2018-10-04] MEDS: Saccharomyces Boulardi 250 mg Cap PO SCH ×2 (09:23→17:37)
[2018-10-04] MEDS: Brimonidine 0.2% Opth Sol (5ml) OU SCH (09:23)
[2018-10-04] MEDS: guaiFENesin 600 mg ER Tab PO SCH ×2 (09:31→17:37)
[2018-10-04] MEDS: Verapamil 180 mg ER Tab PO SCH (11:00)
--- NOTE | 2018-10-04 13:34 | CARD ---
APPROVED REPORT Date of service: 10/02/2018 EKG Measurement Heart [id number] <Conclusion> Supraventricular tachycardia Left ventricular hypertrophy with repolarization abnormality Abnormal ECG
--- NOTE | 2018-10-04 20:40 | CP.PCM.PN ---
Subjective - Date & Time of Evaluation Date of Evaluation: 10/04/18 Time of Evaluation: 11:05 - Subjective Subjective: Patient seen and examined at bedside. Comfortable Objective - Vital Signs/Intake and Output Vital Signs (last 24 hours): Temp Pulse Resp BP Pulse Ox 98.7 F 82 25 H 139/81 95 10/04/18 04:00 10/04/18 04:00 10/04/18 04:00 10/04/18 04:00 10/04/18 04:00 Intake and Output: 10/04/18 10/04/18 06:59 18:59 Intake Total 295 Output Total 200 Balance 95 - Medications Medications: Current Medications Acetaminophen (Tylenol 325mg Tab) 650 mg PO Q6 PRN PRN Reason: Fever >100.4 F Last Admin: 10/02/18 00:14 Dose: 650 mg Albuterol/Ipratropium (Duoneb 3 Mg/0.5 Mg (3 Ml) Ud) 3 ml INH RQ6 PRN PRN Reason: Cough Last Admin: 10/03/18 20:06 Dose: 3 ml Apixaban (Eliquis) 2.5 mg PO BID [facility] Stop: 10/10/18 10:01 Last Admin: 10/03/18 17:47 Dose: 2.5 mg Aspirin (Aspirin Chewable) 81 mg PO DAILY [facility] Last Admin: 10/03/18 09:31 Dose: 81 mg Benzonatate (Tessalon Perles) 100 mg PO TID [facility] Last Admin: 10/03/18 17:47 Dose: 100 mg Brimonidine Tartrate (Alphagan 0.2% Opht) 0 ml OU DAILY [facility] Last Admin: 10/03/18 09:31 Dose: 1 drop Clopidogrel Bisulfate (Plavix) 75 mg PO DAILY [facility] Last Admin: 10/03/18 09:31 Dose: 75 mg Donepezil HCl (Aricept) 5 mg PO HS [facility] Last Admin: 10/03/18 22:09 Dose: 5 mg Finasteride (Proscar) 5 mg PO DAILY [facility] Last Admin: 10/03/18 09:31 Dose: 5 mg Guaifenesin (Mucinex La) 600 mg PO BID [facility] Last Admin: 10/03/18 17:47 Dose: 600 mg Piperacillin Sod/Tazobactam Sod (Zosyn 3.375 Gm Iv Premix) 3.375 gm in 50 mls @ 100 mls/hr IVPB Q6H [facility]; Protocol Last Admin: 10/04/18 03:27 Dose: 100 mls/hr Doxycycline Hyclate 100 mg/ (Sodium Chloride) 100 mls @ 100 mls/hr IVPB Q12H [facility]; Protocol Last Admin: 10/03/18 22:11 Dose: 100 mls/hr Insulin Aspart (Novolog) 0 unit SC ACHS [facility]; Protocol Last Admin: 10/03/18 22:42 Dose: Not Given Latanoprost (Xalatan Opht) 0 ml OU HS [facility] Last Admin: 10/03/18 22:12 Dose: 2.5 ml Lorazepam (Ativan) 0.5 mg IVP ONCE PRN PRN Reason: Agitation Last Admin: 10/04/18 00:14 Dose: 0.5 mg Nicotine (Nicoderm Cq) 1 patch TD DAILY [facility] Last Admin: 10/03/18 09:50 Dose: 1 patch Quetiapine Fumarate (Seroquel) 25 mg PO BID PRN PRN Reason: Agitation Last Admin: 10/03/18 22:11 Dose: 25 mg Rosuvastatin Calcium (Crestor) 10 mg PO HS [facility] Last Admin: 10/03/18 22:10 Dose: 10 mg Saccharomyces Boulardii (Florastor) 250 mg PO BID [facility] Last Admin: 10/03/18 17:47 Dose: 250 mg Verapamil HCl (Calan Sr Tab) 180 mg PO DAILY [facility] Last Admin: 10/03/18 09:54 Dose: 180 mg - Labs Labs: 10/04/18 06:10 10/04/18 06:09 PT 10.0 SECONDS (9.7-12.2) 09/24/18 18:55 INR 0.9 09/24/18 18:55 APTT 28 SECONDS (21-34) 09/24/18 18:55 - Constitutional Appears: No Acute Distress - Head Exam Head Exam: ATRAUMATIC, NORMAL INSPECTION - Eye Exam Eye Exam: EOMI, Normal appearance - ENT Exam ENT Exam: Mucous Membranes Dry - Respiratory Exam Respiratory Exam: Rhonchi, NORMAL BREATHING PATTERN. absent: Rales, Wheezes - Cardiovascular Exam Cardiovascular Exam: REGULAR RHYTHM, +S1, +S2 - GI/Abdominal Exam GI & Abdominal Exam: Soft. absent: Tenderness - Extremities Exam Extremities Exam: Normal Inspection. absent: Calf Tenderness - Neurological Exam Neurological Exam: Alert, Awake - Psychiatric Exam Psychiatric exam: Anxious, Normal Mood - Skin Skin Exam: Normal Color Assessment and Plan - Assessment and Plan (Free Text) Assessment: Patient is a 83 year old M who was admitted for Altered mental status, found to be acute on chronic stroke with symptomatic severe aortic stenosis Acute on chronic CVA -Continue ASA 81mg PO daily -Plavix 75 mg PO daily discontinued 2/2 risk of bleeding -Continue Crestor 10mg PO HS -Echo w/ bubble study showed no PFO, severe , and diastolic dysfunction, LVEF 65-70%; please refer to full report -Patient unable to complete MRA neck -Patient cleared from neurological standpoint as per neuro -Neurology on consult, Dr Manrique, help appreciated -Physical therapy ordered Imaging: -CT head: showed multiple old infarcts; no acute infarct seen; please refer to full report -Brain MRI:There are 2 tiny focal areas of mild restricted diffusion, both of which are located in the posterior temporoparietal cortices left slightly larger and the slightly more anterior in location on the right side. Note that the both of these foci are adjacent to, abutting areas of larger chronic infarcts left larger than right... Both of these foci could represent small acute/subacute areas of reversible ischemia (TIAs) or tiny acute/subacute infarcts. Note that a small components of shine through artifact cannot be excluded. No additional focal areas of abnormal restricted diffusion identified. Chronic confluent white matter ischemic changes with more discrete bifrontal infarcts left larger than right. 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 Atrial fibrillation, Atrial flutter -Patient was on cardizem drip over the weekend -Drip discontinued -On Verapamil 180mg PO daily -On Eliquis 2.5mg PO BID Severe Aortic Stenosis -On echo, severe valvular aortic stenosis, aortic valve area 0.76cm2 -Will need to follow up with cardiology for possible cardiac cath and TAVR -Patient and family refusing cardiac cath at this time -Continue medical management NSTEMI; resolved -EKG showed Nonspecific t-wave abnormality -Continue therapeutic lovenox, plavix daily -Troponins 0.1230, 0.1230, 0.0940 -Patient will need cardiac cath and TVR pending neuro clearance Pneumonia -Afebrile, no leukocytosis, procalcitonin was low -CXR showed consolidation in right middle lobes and right lower lobe, patchy infiltrate in left lower lobe (see full report) -CT chest: bilateral lower lobe consolidation, adjacent interstitial changes. Prominent mediastinal lymph nodes. Ectasia of ascending thoracic aorta 3.7cm (see full report) -Antibiotics: Avelox 400mg PO daily x 5 days -Zosyn 3.375 Q8H (started 09/25/18-10/04/18) and Vancomycin 1g Q24H (started 09/25/18-10/03/18) -Continue Florastor 250mg PO BID -Continue Mucinex 600mg PO BID, Duonebs 3ml INH RQ6H PRN shortness of breath -Tessalon Pearles 100mg PO TID added for cough suppression Suicidal Ideation; resolved -Patient placed on 1:1 for safety -Psych on consult, Dr Brown, help appreciated Hx of Dementia -Donepizil 5mg daily -Continue Seroquel 25mg PO BID prn for agitation -Dr. Brown; psychiatry; thank you for your help Hx of BPH -Continue Finasteride 5mg PO daily Hx of bacteremia; treated at [facility] [place] 3[place] ago -Blood cultures (09/24/18): no growth after 5 days Hyperglycemia -Hemoglobin a1c 5.1 GI/DVT ppx: -Eliquis 2.5 mg PO BID -hx of falls; fall precautions -PT/OT eval Objective - Vital Signs/Intake and Output Vital Signs (last 24 hours): Temp Pulse Resp BP Pulse Ox 97.7 F 90 20 133/82 98 10/04/18 16:00 10/04/18 16:00 10/04/18 16:00 10/04/18 16:00 10/04/18 16:00 Intake and Output: 10/04/18 10/05/18 18:59 06:59 Intake Total 750 Balance 750 - Medications Medications: Current Medications Acetaminophen (Tylenol 325mg Tab) 650 mg PO Q6 PRN PRN Reason: Fever >100.4 F Last Admin: 10/02/18 00:14 Dose: 650 mg Albuterol/Ipratropium (Duoneb 3 Mg/0.5 Mg (3 Ml) Ud) 3 ml INH RQ6 PRN PRN Reason: Cough Last Admin: 10/03/18 20:06 Dose: 3 ml Apixaban (Eliquis) 2.5 mg PO BID [facility] Stop: 10/10/18 10:01 Last Admin: 10/04/18 17:37 Dose: 2.5 mg Aspirin (Aspirin Chewable) 81 mg PO DAILY [facility] Last Admin: 10/04/18 09:24 Dose: 81 mg Benzonatate (Tessalon Perles) 100 mg PO TID [facility] Last Admin: 10/04/18 17:37 Dose: 100 mg Brimonidine Tartrate (Alphagan 0.2% Opht) 0 ml OU DAILY [facility] Last Admin: 10/04/18 09:23 Dose: 2 drop Donepezil HCl (Aricept) 5 mg PO HS [facility] Last Admin: 10/03/18 22:09 Dose: 5 mg Finasteride (Proscar) 5 mg PO DAILY [facility] Last Admin: 10/04/18 09:23 Dose: 5 mg Guaifenesin (Mucinex La) 600 mg PO BID [facility] Last Admin: 10/04/18 17:37 Dose: 600 mg Insulin Aspart (Novolog) 0 unit SC [facility]; Protocol Last Admin: 10/04/18 17:15 Dose: Not Given Latanoprost (Xalatan Opht) 0 ml OU HS [facility] Last Admin: 10/03/18 22:12 Dose: 2.5 ml Lorazepam (Ativan) 0.5 mg IVP ONCE PRN PRN Reason: Agitation Last Admin: 10/04/18 00:14 Dose: 0.5 mg Moxifloxacin HCl (Avelox) 400 mg PO DAILY [facility]; Protocol Stop: 10/08/18 10:01 Last Admin: 10/04/18 14:00 Dose: 400 mg Nicotine (Nicoderm Cq) 1 patch TD DAILY [facility] Last Admin: 10/04/18 09:23 Dose: 1 patch Quetiapine Fumarate (Seroquel) 25 mg PO BID PRN PRN Reason: Agitation Last Admin: 10/04/18 20:36 Dose: 25 mg Rosuvastatin Calcium (Crestor) 10 mg PO HS [facility] Last Admin: 10/03/18 22:10 Dose: 10 mg Saccharomyces Boulardii (Florastor) 250 mg PO BID [facility] Last Admin: 10/04/18 17:37 Dose: 250 mg Verapamil HCl (Calan Sr Tab) 180 mg PO DAILY [facility] Last Admin: 10/04/18 11:00 Dose: 180 mg - Labs Labs: 10/04/18 06:10 10/04/18 06:09 PT 10.0 SECONDS (9.7-12.2) 09/24/18 18:55 INR 0.9 09/24/18 18:55 APTT 28 SECONDS (21-34) 09/24/18 18:55
[2018-10-04] MEDS: Latanoprost 2.5 ml Opht Soln OU SCH (21:16)
[2018-10-05 06:59] LABS: BASO # 0.1 K/uL (0.0-0.2); BASO % 1.2 % (0.0-2.0); EOS # 0.2 K/uL (0.0-0.7); EOS % 2.8 % (0.0-4.0); HEMOGLOBIN 10.7 g/dL (12.0-18.0); LYMPH # 1.1 K/uL (1.0-4.3); LYMPH % 14.7 % (20.0-40.0); MEAN CELL VOLUME 85.5 fL (80.0-94.0); MEAN CORPUSCULAR HEMOGLOBIN 27.4 pg (27.0-31.0); MEAN CORPUSCULAR HGB CONC 32.1 g/dL (33.0-37.0); MEAN PLATELET VOLUME 7.4 fL (7.2-11.7); MONO # 0.7 K/uL (0.0-0.8); MONO % 8.6 % (0.0-10.0); NEUT # 5.5 K/uL (1.8-7.0); NEUT % 72.7 % (50.0-75.0); NRBC % 0.1 % (0.0-2.0); RBC 3.89 Mil/uL (4.40-5.90); RED CELL DISTRIBUTION WIDTH 17.4 % (11.5-14.5); WHITE BLOOD COUNT 7.6 K/uL (4.8-10.8)
[2018-10-05 07:43] LABS: ALB/GLOB RATIO 0.9 (1.0-2.1); ALT/SGPT 20 U/L (21-72); AST/SGOT 45 U/L (17-59); BLOOD UREA NITROGEN 29 mg/dL (9-20); CALCIUM 8.8 mg/dl (8.6-10.4); GFR NON-AFRICAN AMERICAN 58
[2018-10-05] MEDS: (Novolog) Insulin Aspart, Recombinant 100 u/ml 10 ml vial SC SCH ×3 (08:02→22:00)
[2018-10-05] MEDS: Saccharomyces Boulardi 250 mg Cap PO SCH ×2 (09:42→18:27)
[2018-10-05] MEDS: guaiFENesin 600 mg ER Tab PO SCH ×2 (09:42→18:27)
[2018-10-05] MEDS: Verapamil 180 mg ER Tab PO SCH (09:43)
[2018-10-05] MEDS: Brimonidine 0.2% Opth Sol (5ml) OU SCH (09:43)
[2018-10-05] MEDS: Albuterol-Ipratrop 3 mg / 0.5 (3 ml) UD INH PRN (17:35)
--- NOTE | 2018-10-05 21:55 | CP.PCM.PN ---
Subjective - Date & Time of Evaluation Date of Evaluation: 10/05/18 Time of Evaluation: 07:05 - Subjective Subjective: Patient seen and examined at bedside. No cardiac events noted Physical examination - Constitutional Appears: No Acute Distress - Head Exam Head Exam: ATRAUMATIC, NORMAL INSPECTION - Eye Exam Eye Exam: EOMI, Normal appearance - ENT Exam ENT Exam: Mucous Membranes Dry - Respiratory Exam Respiratory Exam: Rhonchi, NORMAL BREATHING PATTERN. absent: Rales, Wheezes - Cardiovascular Exam Cardiovascular Exam: REGULAR RHYTHM, +S1, +S2 - GI/Abdominal Exam GI & Abdominal Exam: Soft. absent: Tenderness - Extremities Exam Extremities Exam: Normal Inspection. absent: Calf Tenderness - Neurological Exam Neurological Exam: Alert, Awake - Psychiatric Exam Psychiatric exam: Anxious, Normal Mood - Skin Skin Exam: Normal Color Assessment and Plan - Assessment and Plan (Free Text) Assessment: Patient is a 83 year old M who was admitted for Altered mental status, found to be acute on chronic stroke with symptomatic severe aortic stenosis Acute on chronic CVA -Continue ASA 81mg PO daily -Plavix 75 mg PO daily discontinued 2/2 risk of bleeding -Continue Crestor 10mg PO HS -Echo w/ bubble study showed no PFO, severe , and diastolic dysfunction, LVEF 65-70%; please refer to full report -Patient unable to complete MRA neck -Patient cleared from neurological standpoint as per neuro -Neurology on consult, Dr Manrique, help appreciated -Physical therapy ordered Imaging: -CT head: showed multiple old infarcts; no acute infarct seen; please refer to full report -Brain MRI:There are 2 tiny focal areas of mild restricted diffusion, both of which are located in the posterior temporoparietal cortices left slightly larger and the slightly more anterior in location on the right side. Note that the both of these foci are adjacent to, abutting areas of larger chronic infarcts left larger than right... Both of these foci could represent small acute/subacute areas of reversible ischemia (TIAs) or tiny acute/subacute infarcts. Note that a small components of [place] through artifact cannot be excluded. No additional focal areas of abnormal restricted diffusion identified. Chronic confluent white matter ischemic changes with more discrete bifrontal infarcts left larger than right. 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 Atrial fibrillation, Atrial flutter -Patient was on cardizem drip over the weekend -Drip discontinued -On Verapamil 180mg PO daily -On Eliquis 2.5mg PO BID Severe Aortic Stenosis -On echo, severe valvular aortic stenosis, aortic valve area 0.76cm2 -Will need to follow up with cardiology for possible cardiac cath and TAVR -Patient and family refusing cardiac cath at this time -Continue medical management NSTEMI; resolved -EKG showed Nonspecific t-wave abnormality -Continue therapeutic lovenox, plavix daily -Troponins 0.1230, 0.1230, 0.0940 -Patient will need cardiac cath and TVR pending neuro clearance Pneumonia -Afebrile, no leukocytosis, procalcitonin was low -CXR showed consolidation in right middle lobes and right lower lobe, patchy infiltrate in left lower lobe (see full report) -CT chest: bilateral lower lobe consolidation, adjacent interstitial changes. Prominent mediastinal lymph nodes. Ectasia of ascending thoracic aorta 3.7cm (see full report) -Antibiotics: Avelox 400mg PO daily x 5 days -Zosyn 3.375 Q8H (started 09/25/18-10/04/18) and Vancomycin 1g Q24H (started 09/25/18-10/03/18) -Continue Florastor 250mg PO BID -Continue Mucinex 600mg PO BID, Duonebs 3ml INH RQ6H PRN shortness of breath -Tessalon Pearles 100mg PO TID added for cough suppression Suicidal Ideation; resolved -Patient placed on 1:1 for safety -Psych on consult, Dr Brown, help appreciated Hx of Dementia -Donepizil 5mg daily -Continue Seroquel 25mg PO BID prn for agitation -Dr. Brown; psychiatry; thank you for your help Hx of BPH -Continue Finasteride 5mg PO daily Hx of bacteremia; [place] [facility] [place] -Blood cultures (09/24/18): no growth after 5 days Hyperglycemia -Hemoglobin a1c 5.1 GI/DVT ppx: -Eliquis 2.5 mg PO BID -hx of falls; fall precautions -PT/OT eval Objective - Vital Signs/Intake and Output Vital Signs (last 24 hours): Temp Pulse Resp BP Pulse Ox 98 F 75 20 122/77 98 10/05/18 15:00 10/05/18 15:00 10/05/18 15:00 10/05/18 15:00 10/05/18 15:00 - Medications Medications: Current Medications Acetaminophen (Tylenol 325mg Tab) 650 mg PO Q6 PRN PRN Reason: Fever >100.4 F Last Admin: 10/02/18 00:14 Dose: 650 mg Albuterol/Ipratropium (Duoneb 3 Mg/0.5 Mg (3 Ml) Ud) 3 ml INH RQ6 PRN PRN Reason: Cough Last Admin: 10/05/18 17:35 Dose: 3 ml Apixaban (Eliquis) 2.5 mg PO BID [facility] Stop: 10/10/18 10:01 Last Admin: 10/05/18 18:27 Dose: 2.5 mg Aspirin (Aspirin Chewable) 81 mg PO DAILY [facility] Last Admin: 10/05/18 09:43 Dose: 81 mg Benzonatate (Tessalon Perles) 100 mg PO TID [facility] Last Admin: 10/05/18 18:28 Dose: 100 mg Brimonidine Tartrate (Alphagan 0.2% Opht) 0 ml OU DAILY [facility] Last Admin: 10/05/18 09:43 Dose: 1 drop Donepezil HCl (Aricept) 5 mg PO HS [facility] Last Admin: 10/04/18 21:17 Dose: 5 mg Finasteride (Proscar) 5 mg PO DAILY [facility] Last Admin: 10/05/18 09:42 Dose: 5 mg Guaifenesin (Mucinex La) 600 mg PO BID [facility] Last Admin: 10/05/18 18:27 Dose: 600 mg Insulin Aspart (Novolog) 0 unit SC [facility]; Protocol Last Admin: 10/05/18 17:30 Dose: Not Given Latanoprost (Xalatan Opht) 0 ml OU HS [facility] Last Admin: 10/04/18 21:16 Dose: 2.5 ml Lorazepam (Ativan) 0.5 mg IVP ONCE PRN PRN Reason: Agitation Last Admin: 10/04/18 00:14 Dose: 0.5 mg Lorazepam (Ativan) 0.5 mg IVP Q4H PRN PRN Reason: Anxiety Last Admin: 10/04/18 21:12 Dose: 0.5 mg Moxifloxacin HCl (Avelox) 400 mg PO DAILY [facility]; Protocol Stop: 10/08/18 10:01 Last Admin: 10/05/18 09:42 Dose: 400 mg Nicotine (Nicoderm Cq) 1 patch TD DAILY [facility] Last Admin: 10/05/18 09:43 Dose: 1 patch Quetiapine Fumarate (Seroquel) 25 mg PO BID PRN PRN Reason: Agitation Last Admin: 10/04/18 20:36 Dose: 25 mg Rosuvastatin Calcium (Crestor) 10 mg PO HS [facility] Last Admin: 10/04/18 21:16 Dose: 10 mg Saccharomyces Boulardii (Florastor) 250 mg PO BID [facility] Last Admin: 10/05/18 18:27 Dose: 250 mg Verapamil HCl (Calan Sr Tab) 180 mg PO DAILY [facility] Last Admin: 10/05/18 09:43 Dose: 180 mg - Labs Labs: 10/05/18 06:46 10/05/18 06:46 PT 10.0 SECONDS (9.7-12.2) 09/24/18 18:55 INR 0.9 09/24/18 18:55 APTT 28 SECONDS (21-34) 09/24/18 18:55
[2018-10-05] MEDS: Latanoprost 2.5 ml Opht Soln OU SCH (22:30)
[2018-10-06] MEDS: Albuterol-Ipratrop 3 mg / 0.5 (3 ml) UD INH PRN ×3 (00:36→13:59)
--- NOTE | 2018-10-06 07:13 | CP.PCM.PN ---
Subjective - Date & Time of Evaluation Date of Evaluation: 10/06/18 Time of Evaluation: 07:12 - Subjective Subjective: Medicine Progress Note - Dr Norris's Service Patient seen and examined at bedside. Per nursing no acute events overnight. Patient still coughing. Offers no other complaints at this time. Denies headaches, dizziness, cp, palpitations, sob, abdominal pain, urinary symptoms. Objective - Vital Signs/Intake and Output Vital Signs (last 24 hours): Temp Pulse Resp BP Pulse Ox 98.3 F 78 20 117/67 98 10/05/18 23:50 10/06/18 00:05 10/05/18 23:50 10/05/18 23:50 10/05/18 23:50 - Medications Medications: Current Medications Acetaminophen (Tylenol 325mg Tab) 650 mg PO Q6 PRN PRN Reason: Fever >100.4 F Last Admin: 10/02/18 00:14 Dose: 650 mg Albuterol/Ipratropium (Duoneb 3 Mg/0.5 Mg (3 Ml) Ud) 3 ml INH RQ6 PRN PRN Reason: Cough Last Admin: 10/06/18 00:36 Dose: 3 ml Apixaban (Eliquis) 2.5 mg PO BID [facility] Stop: 10/10/18 10:01 Last Admin: 10/05/18 18:27 Dose: 2.5 mg Aspirin (Aspirin Chewable) 81 mg PO DAILY [facility] Last Admin: 10/05/18 09:43 Dose: 81 mg Benzonatate (Tessalon Perles) 100 mg PO TID [facility] Last Admin: 10/05/18 18:28 Dose: 100 mg Brimonidine Tartrate (Alphagan 0.2% Opht) 0 ml OU DAILY [facility] Last Admin: 10/05/18 09:43 Dose: 1 drop Donepezil HCl (Aricept) 5 mg PO HS [facility] Last Admin: 10/05/18 22:29 Dose: 5 mg Finasteride (Proscar) 5 mg PO DAILY [facility] Last Admin: 10/05/18 09:42 Dose: 5 mg Guaifenesin (Mucinex La) 600 mg PO BID [facility] Last Admin: 10/05/18 18:27 Dose: 600 mg Insulin Aspart (Novolog) 0 unit SC [facility]; Protocol Last Admin: 10/05/18 22:00 Dose: Not Given Latanoprost (Xalatan Opht) 0 ml OU HS [facility] Last Admin: 10/05/18 22:30 Dose: Not Given Lorazepam (Ativan) 0.5 mg IVP ONCE PRN PRN Reason: Agitation Last Admin: 10/04/18 00:14 Dose: 0.5 mg Lorazepam (Ativan) 0.5 mg IVP Q4H PRN PRN Reason: Anxiety Last Admin: 10/04/18 21:12 Dose: 0.5 mg Moxifloxacin HCl (Avelox) 400 mg PO DAILY [facility]; Protocol Stop: 10/08/18 10:01 Last Admin: 10/05/18 09:42 Dose: 400 mg Nicotine (Nicoderm Cq) 1 patch TD DAILY [facility] Last Admin: 10/05/18 09:43 Dose: 1 patch Quetiapine Fumarate (Seroquel) 25 mg PO BID PRN PRN Reason: Agitation Last Admin: 10/04/18 20:36 Dose: 25 mg Rosuvastatin Calcium (Crestor) 10 mg PO HS [facility] Last Admin: 10/05/18 22:29 Dose: 10 mg Saccharomyces Boulardii (Florastor) 250 mg PO BID [facility] Last Admin: 10/05/18 18:27 Dose: 250 mg Verapamil HCl (Calan Sr Tab) 180 mg PO DAILY [facility] Last Admin: 10/05/18 09:43 Dose: 180 mg - Labs Labs: 10/05/18 06:46 10/05/18 06:46 PT 10.0 SECONDS (9.7-12.2) 09/24/18 18:55 INR 0.9 09/24/18 18:55 APTT 28 SECONDS (21-34) 09/24/18 18:55 Assessment and Plan - Assessment and Plan (Free Text) Assessment: Patient is a 83 year old M who was admitted for Altered mental status, found to be acute on chronic stroke with symptomatic severe aortic stenosis Acute on chronic CVA -Continue ASA 81mg PO daily -Plavix 75 mg PO daily discontinued 2/2 risk of bleeding -Continue Crestor 10mg PO HS -Echo w/ bubble study showed no PFO, severe , and diastolic dysfunction, LVEF 65-70%; please refer to full report -Patient unable to complete MRA neck -Patient cleared from neurological standpoint as per neuro -Neurology on consult, Dr Manrique, help appreciated -Physical therapy ordered Imaging: -CT head: showed multiple old infarcts; no acute infarct seen; please refer to full report -Brain MRI:There are 2 tiny focal areas of mild restricted diffusion, both of which are located in the posterior temporoparietal cortices left slightly larger and the slightly more anterior in location on the right side. Note that the both of these foci are adjacent to, abutting areas of larger chronic infarcts left larger than right... Both of these foci could represent small acute/subacute areas of reversible ischemia (TIAs) or tiny acute/subacute infarcts. Note that a small components of shine through artifact cannot be excluded. No additional focal areas of abnormal restricted diffusion identified. Chronic confluent white matter ischemic changes with more discrete bifrontal infarcts left larger than right. 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 Lujan; cardiology; thank you for your help NSTEMI; resolved -EKG showed Nonspecific t-wave abnormality -Continue therapeutic lovenox, plavix daily -Troponins 0.1230, 0.1230, 0.0940 -Patient will need cardiac cath and TVR pending neuro clearance -Dr. Lujan; cardiology; thank you for your help Pneumonia -Afebrile, no leukocytosis, procalcitonin was low -CXR showed consolidation in right middle lobes and right lower lobe, patchy infiltrate in left lower lobe (see full report) -CT chest: bilateral lower lobe consolidation, adjacent interstitial changes. Prominent mediastinal lymph nodes. Ectasia of ascending thoracic aorta 3.7cm (see full report) -Antibiotics: Avelox 400mg PO daily x 5 days -Zosyn 3.375 Q8H (started 09/25/18-10/04/18) and Vancomycin 1g Q24H (started 09/25/18-10/03/18) -Continue Florastor 250mg PO BID -Continue Mucinex 600mg PO BID, Duonebs 3ml INH RQ6H PRN shortness of breath -Tessalon Pearles 100mg PO TID for cough suppression Suicidal Ideation; resolved -Psych on consult, Dr Brown, help appreciated Hx of Dementia -Donepizil 5mg daily -Continue Seroquel 25mg PO BID prn for agitation -Dr. Brown; psychiatry; thank you for your help Hx of BPH -Continue Finasteride 5mg PO daily Hx of bacteremia; treated at [facility] 3mo ago -Blood cultures (09/24/18): no growth after 5 days Hyperglycemia -Hemoglobin a1c 5.1 GI/DVT ppx: -Eliquis 2.5 mg PO BID -hx of falls; fall precautions -PT/OT eval Dispo: Patient medically optimized for discharge to subacute rehab. Awaiting placement at this time. Plan discussed and seen with Dr. Myrna Moreno DO PGY-2
[2018-10-06] MEDS: (Novolog) Insulin Aspart, Recombinant 100 u/ml 10 ml vial SC SCH ×3 (08:17→18:27)
[2018-10-06 09:07] LABS: BASO # 0.1 K/uL (0.0-0.2); BASO % 1.3 % (0.0-2.0); EOS # 0.1 K/uL (0.0-0.7); EOS % 1.6 % (0.0-4.0); HEMOGLOBIN 10.6 g/dL (12.0-18.0); LYMPH % 13.3 % (20.0-40.0); MEAN CELL VOLUME 86.1 fL (80.0-94.0); MEAN CORPUSCULAR HEMOGLOBIN 28.2 pg (27.0-31.0); MEAN CORPUSCULAR HGB CONC 32.7 g/dL (33.0-37.0); MEAN PLATELET VOLUME 7.2 fL (7.2-11.7); MONO # 0.7 K/uL (0.0-0.8); MONO % 8.9 % (0.0-10.0); NEUT # 5.7 K/uL (1.8-7.0); NEUT % 74.9 % (50.0-75.0); RBC 3.77 Mil/uL (4.40-5.90); RED CELL DISTRIBUTION WIDTH 17.7 % (11.5-14.5); WHITE BLOOD COUNT 7.6 K/uL (4.8-10.8)
[2018-10-06 09:21] LABS: ALB/GLOB RATIO 0.9 (1.0-2.1); ALBUMIN 3.3 g/dL (3.5-5.0); ALT/SGPT 18 U/L (21-72); AST/SGOT 33 U/L (17-59); BLOOD UREA NITROGEN 29 mg/dL (9-20); GFR NON-AFRICAN AMERICAN > 60
[2018-10-06] MEDS: Brimonidine 0.2% Opth Sol (5ml) OU SCH (10:15)
[2018-10-06] MEDS: Saccharomyces Boulardi 250 mg Cap PO SCH ×2 (10:15→18:29)
--- NOTE | 2018-10-06 15:43 | CP.PCM.PN ---
<Norma Gee - Last Filed: 10/06/18 15:34> Subjective - Date & Time of Evaluation Date of Evaluation: 10/06/18 Time of Evaluation: 15:34 - Subjective Subjective: Progress note for cardiology Pt seen and examined at bedside. No acute events overnight. Pt is sitting comfortably in bed. Denies having any CP, SOB, abd pain, N/V/D/c. Objective - Vital Signs/Intake and Output Vital Signs (last 24 hours): Temp Pulse Resp BP Pulse Ox 98.8 F 83 18 132/83 94 L 10/06/18 07:00 10/06/18 07:00 10/06/18 07:00 10/06/18 07:00 10/06/18 07:00 - Medications Medications: Current Medications Acetaminophen (Tylenol 325mg Tab) 650 mg PO Q6 PRN PRN Reason: Fever >100.4 F Last Admin: 10/02/18 00:14 Dose: 650 mg Albuterol/Ipratropium (Duoneb 3 Mg/0.5 Mg (3 Ml) Ud) 3 ml INH RQ6 PRN PRN Reason: Cough Last Admin: 10/06/18 13:59 Dose: 3 ml Apixaban (Eliquis) 2.5 mg PO BID [facility] Stop: 10/10/18 10:01 Last Admin: 10/06/18 10:15 Dose: 2.5 mg Aspirin (Aspirin Chewable) 81 mg PO DAILY [facility] Last Admin: 10/06/18 10:15 Dose: 81 mg Benzonatate (Tessalon Perles) 100 mg PO TID [facility] Last Admin: 10/06/18 14:02 Dose: 100 mg Brimonidine Tartrate (Alphagan 0.2% Opht) 0 ml OU DAILY [facility] Last Admin: 10/06/18 10:15 Dose: 1 drop Donepezil HCl (Aricept) 5 mg PO HS [facility] Last Admin: 10/05/18 22:29 Dose: 5 mg Finasteride (Proscar) 5 mg PO DAILY [facility] Last Admin: 10/06/18 10:15 Dose: 5 mg Guaifenesin (Mucinex La) 600 mg PO BID [facility] Last Admin: 10/05/18 18:27 Dose: 600 mg Insulin Aspart (Novolog) 0 unit SC [facility]; Protocol Last Admin: 10/06/18 14:01 Dose: Not Given Latanoprost (Xalatan Opht) 0 ml OU HS [facility] Last Admin: 10/05/18 22:30 Dose: Not Given Lorazepam (Ativan) 0.5 mg IVP ONCE PRN PRN Reason: Agitation Last Admin: 10/04/18 00:14 Dose: 0.5 mg Lorazepam (Ativan) 0.5 mg IVP Q4H PRN PRN Reason: Anxiety Last Admin: 10/04/18 21:12 Dose: 0.5 mg Moxifloxacin HCl (Avelox) 400 mg PO DAILY [facility]; Protocol Stop: 10/08/18 10:01 Last Admin: 10/06/18 10:15 Dose: 400 mg Nicotine (Nicoderm Cq) 1 patch TD DAILY [facility] Last Admin: 10/05/18 09:43 Dose: 1 patch Quetiapine Fumarate (Seroquel) 25 mg PO BID PRN PRN Reason: Agitation Last Admin: 10/04/18 20:36 Dose: 25 mg Rosuvastatin Calcium (Crestor) 10 mg PO HS [facility] Last Admin: 10/05/18 22:29 Dose: 10 mg Saccharomyces Boulardii (Florastor) 250 mg PO BID [facility] Last Admin: 10/06/18 10:15 Dose: 250 mg Verapamil HCl (Calan Sr Tab) 180 mg PO DAILY [facility] Last Admin: 10/05/18 09:43 Dose: 180 mg - Labs Labs: 10/06/18 08:59 10/06/18 08:59 PT 10.0 SECONDS (9.7-12.2) 09/24/18 18:55 INR 0.9 09/24/18 18:55 APTT 28 SECONDS (21-34) 09/24/18 18:55 - Constitutional Appears: Non-toxic, No Acute Distress - Head Exam Head Exam: ATRAUMATIC, NORMOCEPHALIC - ENT Exam ENT Exam: Mucous Membranes Moist - Respiratory Exam Respiratory Exam: Rales, Rhonchi. absent: Accessory Muscle Use - Cardiovascular Exam Cardiovascular Exam: REGULAR RHYTHM, Murmur - GI/Abdominal Exam GI & Abdominal Exam: Soft, Normal Bowel Sounds. absent: Distended, Firm, Guarding, Tenderness - Extremities Exam Extremities Exam: absent: Pedal Edema - Neurological Exam Neurological Exam: Alert, Awake - Skin Skin Exam: Dry, Intact, Normal Color, Warm Assessment and Plan - Assessment and Plan (Free Text) Assessment: Patient is a 83 year old M who was admitted for Altered mental status, found to be acute on chronic stroke with symptomatic severe aortic stenosis Acute on chronic CVA -Continue ASA 81mg PO daily -Plavix 75 mg PO daily discontinued 2/2 risk of bleeding -Continue Crestor 10mg PO HS -Echo w/ bubble study showed no PFO, severe , and diastolic dysfunction, LVEF 65-70%; please refer to full report -Patient cleared from neurological standpoint as per neuro Atrial fibrillation, Atrial flutter -On Verapamil 180mg PO daily -On Eliquis 2.5mg PO BID, Aspirin Severe Aortic Stenosis -On echo, severe valvular aortic stenosis, aortic valve area 0.76cm2 -Will need to follow up with cardiology for possible cardiac cath and TAVR NSTEMI; resolved -Continue Aspirin, Eliquis, Crestor -Troponins 0.1230, 0.1230, 0.0940 -Patient and family refusing cardiac cath at this time -Continue medical management Pneumonia -Antibiotics: Avelox 400mg PO daily x 5 days -Zosyn 3.375 Q8H (started 09/25/18-10/04/18) and Vancomycin 1g Q24H (started 09/25/18-10/03/18) -Continue Florastor 250mg PO BID -Continue Mucinex 600mg PO BID, Duonebs 3ml INH RQ6H PRN shortness of breath -Tessalon Pearles 100mg PO TID added for cough suppression Suicidal Ideation; resolved -Patient placed on 1:1 for safety -Psych on consult, Dr Brown, help appreciated Hx of Dementia -Donepizil 5mg daily -Continue Seroquel 25mg PO BID prn for agitation -Dr. Brown; psychiatry; thank you for your help Hx of BPH -Continue Finasteride 5mg PO daily Case discussed with attending, Dr. Lujan <Sharan Lujan - Last Filed: 10/06/18 20:17> Objective - Vital Signs/Intake and Output Vital Signs (last 24 hours): Temp Pulse Resp BP Pulse Ox 99.3 F 82 20 120/75 96 10/06/18 15:00 10/06/18 16:00 10/06/18 15:00 10/06/18 15:00 10/06/18 15:00 Intake and Output: 10/06/18 10/07/18 18:59 06:59 Intake Total 300 Balance 300 - Medications Medications: Current Medications Acetaminophen (Tylenol 325mg Tab) 650 mg PO Q6 PRN PRN Reason: Fever >100.4 F Last Admin: 10/02/18 00:14 Dose: 650 mg Albuterol/Ipratropium (Duoneb 3 Mg/0.5 Mg (3 Ml) Ud) 3 ml INH RQ6 PRN PRN Reason: Cough Last Admin: 10/06/18 13:59 Dose: 3 ml Apixaban (Eliquis) 2.5 mg PO BID [facility] Stop: 10/10/18 10:01 Last Admin: 10/06/18 18:29 Dose: 2.5 mg Aspirin (Aspirin Chewable) 81 mg PO DAILY [facility] Last Admin: 10/06/18 10:15 Dose: 81 mg Benzonatate (Tessalon Perles) 100 mg PO TID [facility] Last Admin: 10/06/18 18:29 Dose: 100 mg Brimonidine Tartrate (Alphagan 0.2% Opht) 0 ml OU DAILY [facility] Last Admin: 10/06/18 10:15 Dose: 1 drop Donepezil HCl (Aricept) 5 mg PO HS [facility] Last Admin: 10/05/18 22:29 Dose: 5 mg Finasteride (Proscar) 5 mg PO DAILY [facility] Last Admin: 10/06/18 10:15 Dose: 5 mg Guaifenesin (Mucinex La) 600 mg PO BID [facility] Last Admin: 10/06/18 18:28 Dose: 600 mg Insulin Aspart (Novolog) [address] [facility]; Protocol Last Admin: 10/06/18 18:27 Dose: 2 unit Latanoprost (Xalatan Opht) 0 ml OU HS [facility] Last Admin: 10/05/18 22:30 Dose: Not Given Lorazepam (Ativan) 0.5 mg IVP ONCE PRN PRN Reason: Agitation Last Admin: 10/04/18 00:14 Dose: 0.5 mg Lorazepam (Ativan) 0.5 mg IVP Q4H PRN PRN Reason: Anxiety Last Admin: 10/04/18 21:12 Dose: 0.5 mg Moxifloxacin HCl (Avelox) 400 mg PO DAILY [facility]; Protocol Stop: 10/08/18 10:01 Last Admin: 10/06/18 10:15 Dose: 400 mg Nicotine (Nicoderm Cq) 1 patch TD DAILY [facility] Last Admin: 10/05/18 09:43 Dose: 1 patch Quetiapine Fumarate (Seroquel) 25 mg PO BID PRN PRN Reason: Agitation Last Admin: 10/04/18 20:36 Dose: 25 mg Rosuvastatin Calcium (Crestor) 10 mg PO HS [facility] Last Admin: 10/05/18 22:29 Dose: 10 mg Saccharomyces Boulardii (Florastor) 250 mg PO BID [facility] Last Admin: 10/06/18 18:29 Dose: 250 mg Verapamil HCl (Calan Sr Tab) 180 mg PO DAILY [facility] Last Admin: 10/05/18 09:43 Dose: 180 mg - Labs Labs: 10/06/18 08:59 10/06/18 08:59 PT 10.0 SECONDS (9.7-12.2) 09/24/18 18:55 INR 0.9 09/24/18 18:55 APTT 28 SECONDS (21-34) 09/24/18 18:55 Assessment and Plan - Assessment and Plan (Free Text) Assessment: Patient seen and evaluated personally by me. Plan of care d/w the medical affairs specialist and as documented
[2018-10-06] MEDS: guaiFENesin 600 mg ER Tab PO SCH (18:28)
[2018-10-07] MEDS: Albuterol-Ipratrop 3 mg / 0.5 (3 ml) UD INH PRN ×3 (03:35→19:43)
--- NOTE | 2018-10-07 07:04 | CP.PCM.PN ---
Subjective - Date & Time of Evaluation Date of Evaluation: 10/07/18 Time of Evaluation: 07:04 - Subjective Subjective: Progress note for Dr. Norris Patient was seen and examined at bedside in no acute distress. Patient states he has no complaints and feels well. He denies having chest pain, difficulty breathing and pain elsewhere in the body. Patient tolerating diet well. Objective - Vital Signs/Intake and Output Vital Signs (last 24 hours): Temp Pulse Resp BP Pulse Ox 98.6 F 82 20 148/81 97 10/06/18 23:45 10/06/18 23:45 10/06/18 23:45 10/06/18 23:45 10/06/18 23:45 Intake and Output: 10/07/18 10/07/18 06:59 18:59 Intake Total 200 Balance 200 - Medications Medications: Current Medications Acetaminophen (Tylenol 325mg Tab) 650 mg PO Q6 PRN PRN Reason: Fever >100.4 F Last Admin: 10/02/18 00:14 Dose: 650 mg Albuterol/Ipratropium (Duoneb 3 Mg/0.5 Mg (3 Ml) Ud) 3 ml INH RQ6 PRN PRN Reason: Cough Last Admin: 10/07/18 03:35 Dose: 3 ml Apixaban (Eliquis) 2.5 mg PO BID [facility] Stop: 10/10/18 10:01 Last Admin: 10/06/18 18:29 Dose: 2.5 mg Aspirin (Aspirin Chewable) 81 mg PO DAILY [facility] Last Admin: 10/06/18 10:15 Dose: 81 mg Benzonatate (Tessalon Perles) 100 mg PO TID [facility] Last Admin: 10/06/18 18:29 Dose: 100 mg Brimonidine Tartrate (Alphagan 0.2% Opht) 0 ml OU DAILY [facility] Last Admin: 10/06/18 10:15 Dose: 1 drop Donepezil HCl (Aricept) 5 mg PO HS [facility] Last Admin: 10/05/18 22:29 Dose: 5 mg Finasteride (Proscar) 5 mg PO DAILY [facility] Last Admin: 10/06/18 10:15 Dose: 5 mg Guaifenesin (Mucinex La) 600 mg PO BID [facility] Last Admin: 10/06/18 18:28 Dose: 600 mg Insulin Aspart (Novolog) 0 unit SC [facility]; Protocol Last Admin: 10/06/18 18:27 Dose: 2 unit Latanoprost (Xalatan Opht) 0 ml OU HS [facility] Last Admin: 10/05/18 22:30 Dose: Not Given Lorazepam (Ativan) 0.5 mg IVP ONCE PRN PRN Reason: Agitation Last Admin: 10/04/18 00:14 Dose: 0.5 mg Lorazepam (Ativan) 0.5 mg IVP Q4H PRN PRN Reason: Anxiety Last Admin: 10/04/18 21:12 Dose: 0.5 mg Moxifloxacin HCl (Avelox) 400 mg PO DAILY [facility]; Protocol Stop: 10/08/18 10:01 Last Admin: 10/06/18 10:15 Dose: 400 mg Nicotine (Nicoderm Cq) 1 patch TD DAILY [facility] Last Admin: 10/05/18 09:43 Dose: 1 patch Quetiapine Fumarate (Seroquel) 25 mg PO BID PRN PRN Reason: Agitation Last Admin: 10/04/18 20:36 Dose: 25 mg Rosuvastatin Calcium (Crestor) 10 mg PO HS [facility] Last Admin: 10/05/18 22:29 Dose: 10 mg Saccharomyces Boulardii (Florastor) 250 mg PO BID [facility] Last Admin: 10/06/18 18:29 Dose: 250 mg Verapamil HCl (Calan Sr Tab) 180 mg PO DAILY [facility] Last Admin: 10/05/18 09:43 Dose: 180 mg - Labs Labs: 10/06/18 08:59 10/06/18 08:59 PT 10.0 SECONDS (9.7-12.2) 09/24/18 18:55 INR 0.9 09/24/18 18:55 APTT 28 SECONDS (21-34) 09/24/18 18:55 - Constitutional Appears: No Acute Distress, Cachectic - Head Exam Head Exam: ATRAUMATIC, NORMAL INSPECTION - Eye Exam Eye Exam: EOMI - ENT Exam ENT Exam: Mucous Membranes Moist - Respiratory Exam Respiratory Exam: NORMAL BREATHING PATTERN. absent: Rales, Rhonchi, Wheezes - Cardiovascular Exam Cardiovascular Exam: +S1, +S2, Murmur - GI/Abdominal Exam GI & Abdominal Exam: Soft, Normal Bowel Sounds. absent: Distended, Tenderness - Extremities Exam Extremities Exam: Normal Inspection. absent: Pedal Edema, Tenderness - Neurological Exam Neurological Exam: Awake - Psychiatric Exam Psychiatric exam: Normal Affect, Normal Mood - Skin Skin Exam: Dry, Normal Color, Warm Assessment and Plan - Assessment and Plan (Free Text) Plan: Patient is a 83 year old M who was admitted for Altered mental status, found to be acute on chronic stroke with symptomatic severe aortic stenosis Acute on chronic CVA - Continue ASA 81mg PO daily, Crestor 10mg PO HS - Plavix 75 mg PO daily discontinued 2/2 risk of bleeding - Echo w/ bubble study showed no PFO, severe , and diastolic dysfunction, LVEF 65-70%; please refer to full report - Patient unable to complete MRA neck - Neurology on consult, Dr Manrique, help appreciated - Patient cleared from neurological standpoint as per neuro - Physical therapy ordered Imaging: * CT head: showed multiple old infarcts; no acute infarct seen; please refer to full report * Brain MRI:There are 2 tiny focal areas of mild restricted diffusion, both of which are located in the posterior temporoparietal cortices left slightly larger and the slightly more anterior in location on the right side. Note that the both of these foci are adjacent to, abutting areas of larger chronic infarcts left larger than right... Both of these foci could represent small acute/subacute areas of reversible ischemia (TIAs) or tiny acute/subacute infarcts. Note that a small components of shine through artifact cannot be excluded. No additional focal areas of abnormal restricted diffusion identified. Chronic confluent white matter ischemic changes with more discrete bifrontal infarcts left larger than right. 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 Lujan; cardiology; thank you for your help - On echo, severe valvular aortic stenosis, aortic valve area 0.76cm2 - Per tile ditcher, patient possibly needs cardiac cath and TAVR; however, patient and family refuse at this time. - Continue medical management NSTEMI; resolved - Dr. Lujan; cardiology; thank you for your help - EKG showed Nonspecific t-wave abnormality - Continue therapeutic lovenox, plavix daily - Troponins 0.1230, 0.1230, 0.0940 - Per tile ditcher, patient possibly needs cardiac cath and TAVR; however, patient and family refuse at this time. Pneumonia - Afebrile, no leukocytosis, procalcitonin was low - CXR showed consolidation in right middle lobes and right lower lobe, patchy infiltrate in left lower lobe (see full report) - CT chest: bilateral lower lobe consolidation, adjacent interstitial changes. Prominent mediastinal lymph nodes. Ectasia of ascending thoracic aorta 3.7cm (see full report) - Antibiotics: Avelox 400mg PO daily x 5 days (last dose to be given on 10/08/18) - Zosyn 3.375 Q8H (active from 09/25/18-10/04/18) and Vancomycin 1g Q24H (active from 09/25/18-10/03/18) - Continue Florastor 250mg PO BID - Continue Mucinex 600mg PO BID, Duonebs 3ml INH RQ6H PRN shortness of breath - Tessalon Pearles 100mg PO TID for cough suppression Suicidal Ideation; resolved - Psych on consult, Dr Brown, help appreciated Hx of Dementia - Donepizil 5mg daily - Continue Seroquel 25mg PO BID prn for agitation - Dr. Brown; psychiatry; thank you for your help Hx of BPH - Continue Finasteride 5mg PO daily Hx of bacteremia; treated at [facility] [place] [facility] 3mo ago - Blood cultures (09/24/18): no growth after 5 days Hyperglycemia - Hemoglobin a1c 5.1 GI/DVT ppx: - Eliquis 2.5 mg PO BID - hx of falls; fall precautions - PT/OT eval Dispo: Patient medically optimized for discharge to subacute rehab. Awaiting placement at this time. Case discussed with Dr. Myrna Connelly, PGY2
[2018-10-07 07:43] LABS: BASO # 0.1 K/uL (0.0-0.2); BASO % 0.5 % (0.0-2.0); EOS # 0.1 K/uL (0.0-0.7); EOS % 0.4 % (0.0-4.0); HEMOGLOBIN 10.1 g/dL (12.0-18.0); LYMPH # 0.9 K/uL (1.0-4.3); LYMPH % 6.4 % (20.0-40.0); MEAN CELL VOLUME 85.7 fL (80.0-94.0); MEAN CORPUSCULAR HEMOGLOBIN 27.8 pg (27.0-31.0); MEAN CORPUSCULAR HGB CONC 32.5 g/dL (33.0-37.0); MEAN PLATELET VOLUME 7.1 fL (7.2-11.7); MONO # 1.2 K/uL (0.0-0.8); MONO % 7.8 % (0.0-10.0); NEUT # 12.6 K/uL (1.8-7.0); NEUT % 84.9 % (50.0-75.0); PLATELET COUNT 436 K/uL (130-400); RBC 3.63 Mil/uL (4.40-5.90); RED CELL DISTRIBUTION WIDTH 17.7 % (11.5-14.5)
[2018-10-07 07:46] LABS: ALB/GLOB RATIO 0.9 (1.0-2.1); ALBUMIN 3.1 g/dL (3.5-5.0); ALT/SGPT 23 U/L (21-72); AST/SGOT 33 U/L (17-59); BLOOD UREA NITROGEN 26 mg/dL (9-20); CALCIUM 8.8 mg/dl (8.6-10.4); GFR NON-AFRICAN AMERICAN > 60
[2018-10-07 07:55] LABS: WHITE BLOOD COUNT 14.9 K/uL (4.8-10.8)
[2018-10-07] MEDS: (Novolog) Insulin Aspart, Recombinant 100 u/ml 10 ml vial SC SCH ×4 (08:00→21:59)
[2018-10-07 10:34] LABS: ANISOCYTOSIS SLIGHT; HYPOCHROMIC SLIGHT; LYMPHOCYTE 4 % (20-40); MONOCYTE 7 % (0-10); NEUTROPHIL 89 % (50-75); PLATELET ESTIMATE SLIGHTLY INCREASED (NORMAL); TOTAL CELLS COUNTED 100
[2018-10-07] MEDS: Brimonidine 0.2% Opth Sol (5ml) OU SCH (10:55)
[2018-10-07] MEDS: Saccharomyces Boulardi 250 mg Cap PO SCH ×2 (10:55→18:01)
[2018-10-07] MEDS: Verapamil 180 mg ER Tab PO SCH (10:55)
[2018-10-07] MEDS: guaiFENesin 600 mg ER Tab PO SCH ×2 (10:55→17:57)
--- NOTE | 2018-10-07 21:27 | CP.PCM.PN ---
Subjective - Date & Time of Evaluation Date of Evaluation: 10/07/18 Time of Evaluation: 18:20 - Subjective Subjective: Patient was seen and examined Not in distress denies chest pain and dyspnea Physical examination - Constitutional Appears: No Acute Distress, Cachectic - Head Exam Head Exam: ATRAUMATIC, NORMAL INSPECTION - Eye Exam Eye Exam: EOMI - ENT Exam ENT Exam: Mucous Membranes Moist - Respiratory Exam Respiratory Exam: NORMAL BREATHING PATTERN. absent: Rales, Rhonchi, Wheezes - Cardiovascular Exam Cardiovascular Exam: +S1, +S2, Murmur - GI/Abdominal Exam GI & Abdominal Exam: Soft, Normal Bowel Sounds. absent: Distended, Tenderness - Extremities Exam Extremities Exam: Normal Inspection. absent: Pedal Edema, Tenderness - Neurological Exam Neurological Exam: Awake - Psychiatric Exam Psychiatric exam: Normal Affect, Normal Mood - Skin Skin Exam: Dry, Normal Color, Warm Assessment and Plan - Assessment and Plan (Free Text) Plan: Patient is a 83 year old M who was admitted for Altered mental status, found to be acute on chronic stroke with symptomatic severe aortic stenosis Acute on chronic CVA - Continue ASA 81mg PO daily, Crestor 10mg PO HS - Plavix 75 mg PO daily discontinued 2/2 risk of bleeding - Echo w/ bubble study showed no PFO, severe , and diastolic dysfunction, LVEF 65-70%; please refer to full report - Patient unable to complete MRA neck - Neurology on consult, Dr Manrique, help appreciated - Patient cleared from neurological standpoint as per neuro - Physical therapy ordered Imaging: * CT head: showed multiple old infarcts; no acute infarct seen; please refer to full report * Brain MRI:There are 2 tiny focal areas of mild restricted diffusion, both of which are located in the posterior temporoparietal cortices left slightly larger and the slightly more anterior in location on the right side. Note that the both of these foci are adjacent to, abutting areas of larger chronic infarcts left larger than right... Both of these foci could represent small acute/subacute areas of reversible ischemia (TIAs) or tiny acute/subacute infarcts. Note that a small components of shine through artifact cannot be excluded. No additional focal areas of abnormal restricted diffusion identified. Chronic confluent white matter ischemic changes with more discrete bifrontal infarcts left larger than right. There also chronic bilateral cerebellar infarcts * Echocardiogram: EF 65-70%, diastolic dysfunction, severe valvular aortic stenosis, aortic valve area 0.76cm2, borderline MVP * MRA Head: no occlusion or significant stenosis of [place] arterial anatomy. 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 Atrial fibrillation, Atrial flutter - Patient was on cardizem drip over the weekend--> Drip discontinued - On Verapamil 180mg PO daily - On Eliquis 2.5mg PO BID Severe Aortic Stenosis Patient does not want any additional work - On echo, severe valvular aortic stenosis, aortic valve area 0.76cm2 NSTEMI; resolved - EKG showed Nonspecific t-wave abnormality - Continue therapeutic lovenox, plavix daily - Troponins 0.1230, 0.1230, 0.0940 Pneumonia - Afebrile, no leukocytosis, procalcitonin was low - CXR showed consolidation in right middle lobes and right lower lobe, patchy i nfiltrate in left lower lobe (see full report) - CT chest: bilateral lower lobe consolidation, adjacent interstitial changes. Prominent mediastinal lymph nodes. Ectasia of ascending thoracic aorta 3.7cm (see full report) - Antibiotics: Avelox 400mg PO daily x 5 days (last dose to be given on 10/08/18) - Zosyn 3.375 Q8H (active from 09/25/18-10/04/18) and Vancomycin 1g Q24H (active from 09/25/18-10/03/18) - Continue Florastor 250mg PO BID - Continue Mucinex 600mg PO BID, Duonebs 3ml INH RQ6H PRN shortness of breath - Tessalon Pearles 100mg PO TID for cough suppression Suicidal Ideation; resolved - Psych on consult, Dr Brown, help appreciated Hx of Dementia - Donepizil 5mg daily - Continue Seroquel 25mg PO BID prn for agitation - Dr. Brown; psychiatry; thank you for your help Hx of BPH - Continue Finasteride 5mg PO daily Hx of bacteremia; treated at [facility] [place] 3mo ago - Blood cultures (09/24/18): no growth after 5 days Hyperglycemia - Hemoglobin a1c 5.1 GI/DVT ppx: - Eliquis 2.5 mg PO BID - hx of falls; fall precautions - PT/OT eval Objective - Vital Signs/Intake and Output Vital Signs (last 24 hours): Temp Pulse Resp BP Pulse Ox 99.3 F 82 18 134/80 98 10/07/18 15:17 10/07/18 15:17 10/07/18 15:17 10/07/18 15:17 10/07/18 15:17 - Medications Medications: Current Medications Acetaminophen (Tylenol 325mg Tab) 650 mg PO Q6 PRN PRN Reason: Fever >100.4 F Last Admin: 10/02/18 00:14 Dose: 650 mg Albuterol/Ipratropium (Duoneb 3 Mg/0.5 Mg (3 Ml) Ud) 3 ml INH RQ6 PRN PRN Reason: Cough Last Admin: 10/07/18 19:43 Dose: 3 ml Apixaban (Eliquis) 2.5 mg PO BID [facility] Stop: 10/10/18 10:01 Last Admin: 10/07/18 17:56 Dose: 2.5 mg Aspirin (Aspirin Chewable) 81 mg PO DAILY [facility] Last Admin: 10/07/18 10:55 Dose: 81 mg Benzonatate (Tessalon Perles) 100 mg PO TID [facility] Last Admin: 10/07/18 17:52 Dose: 100 mg Brimonidine Tartrate (Alphagan 0.2% Opht) 0 ml OU DAILY [facility] Last Admin: 10/07/18 10:55 Dose: 1 drop Donepezil HCl (Aricept) 5 mg PO HS [facility] Last Admin: 10/05/18 22:29 Dose: 5 mg Finasteride (Proscar) 5 mg PO DAILY [facility] Last Admin: 10/07/18 10:55 Dose: 5 mg Guaifenesin (Mucinex La) 600 mg PO BID [facility] Last Admin: 10/07/18 17:57 Dose: 600 mg Insulin Aspart (Novolog) 0 unit SC [facility]; Protocol Last Admin: 10/07/18 17:49 Dose: 1 unit Latanoprost (Xalatan Opht) 0 ml OU HS [facility] Last Admin: 10/05/18 22:30 Dose: Not Given Lorazepam (Ativan) 0.5 mg IVP ONCE PRN PRN Reason: Agitation Last Admin: 10/04/18 00:14 Dose: 0.5 mg Lorazepam (Ativan) 0.5 mg IVP Q4H PRN PRN Reason: Anxiety Last Admin: 10/04/18 21:12 Dose: 0.5 mg Moxifloxacin HCl (Avelox) 400 mg PO DAILY [facility]; Protocol Stop: 10/08/18 10:01 Last Admin: 10/07/18 10:55 Dose: 400 mg Nicotine (Nicoderm Cq) 1 patch TD DAILY [facility] Last Admin: 10/07/18 10:55 Dose: 1 patch Quetiapine Fumarate (Seroquel) 25 mg PO BID PRN PRN Reason: Agitation Last Admin: 10/04/18 20:36 Dose: 25 mg Rosuvastatin Calcium (Crestor) 10 mg PO HS [facility] Last Admin: 10/05/18 22:29 Dose: 10 mg Saccharomyces Boulardii (Florastor) 250 mg PO BID [facility] Last Admin: 10/07/18 18:01 Dose: 250 mg Verapamil HCl (Calan Sr Tab) 180 mg PO DAILY [facility] Last Admin: 10/07/18 10:55 Dose: 180 mg - Labs Labs: 10/07/18 07:15 10/07/18 07:15 PT 10.0 SECONDS (9.7-12.2) 09/24/18 18:55 INR 0.9 09/24/18 18:55 APTT 28 SECONDS (21-34) 09/24/18 18:55
[2018-10-07] MEDS: Latanoprost 2.5 ml Opht Soln OU SCH (22:24)
--- NOTE | 2018-10-08 07:20 | CP.PCM.PN ---
Subjective - Date & Time of Evaluation Date of Evaluation: 10/08/18 Time of Evaluation: 07:19 - Subjective Subjective: Progress note for Dr. Norris Patient was seen and examined at bedside in no acute distress. He requests more food and says he did not like his breakfast. Per the CP, the patient ate most of his breakfast. The patient has no complaints and states he is "healthy as healthy can be". Objective - Vital Signs/Intake and Output Vital Signs (last 24 hours): Temp Pulse Resp BP Pulse Ox 97.9 F 68 20 119/78 98 10/07/18 23:50 10/08/18 03:45 10/07/18 23:50 10/07/18 23:50 10/07/18 23:50 - Medications Medications: Current Medications Acetaminophen (Tylenol 325mg Tab) 650 mg PO Q6 PRN PRN Reason: Fever >100.4 F Last Admin: 10/02/18 00:14 Dose: 650 mg Albuterol/Ipratropium (Duoneb 3 Mg/0.5 Mg (3 Ml) Ud) 3 ml INH RQ6 PRN PRN Reason: Cough Last Admin: 10/07/18 19:43 Dose: 3 ml Apixaban (Eliquis) 2.5 mg PO BID [facility] Stop: 10/10/18 10:01 Last Admin: 10/07/18 17:56 Dose: 2.5 mg Aspirin (Aspirin Chewable) 81 mg PO DAILY [facility] Last Admin: 10/07/18 10:55 Dose: 81 mg Benzonatate (Tessalon Perles) 100 mg PO TID [facility] Last Admin: 10/07/18 17:52 Dose: 100 mg Brimonidine Tartrate (Alphagan 0.2% Opht) 0 ml OU DAILY [facility] Last Admin: 10/07/18 10:55 Dose: 1 drop Donepezil HCl (Aricept) 5 mg PO HS [facility] Last Admin: 10/07/18 22:24 Dose: 5 mg Finasteride (Proscar) 5 mg PO DAILY [facility] Last Admin: 10/07/18 10:55 Dose: 5 mg Guaifenesin (Mucinex La) 600 mg PO BID [facility] Last Admin: 10/07/18 17:57 Dose: 600 mg Insulin Aspart (Novolog) 0 unit SC [facility]; Protocol Last Admin: 10/07/18 21:59 Dose: Not Given Latanoprost (Xalatan Opht) 0 ml OU HS [facility] Last Admin: 10/07/18 22:24 Dose: 1 ml Lorazepam (Ativan) 0.5 mg IVP ONCE PRN PRN Reason: Agitation Last Admin: 10/04/18 00:14 Dose: 0.5 mg Lorazepam (Ativan) 0.5 mg IVP Q4H PRN PRN Reason: Anxiety Last Admin: 10/04/18 21:12 Dose: 0.5 mg Moxifloxacin HCl (Avelox) 400 mg PO DAILY [facility]; Protocol Stop: 10/08/18 10:01 Last Admin: 10/07/18 10:55 Dose: 400 mg Nicotine (Nicoderm Cq) 1 patch TD DAILY [facility] Last Admin: 10/07/18 10:55 Dose: 1 patch Quetiapine Fumarate (Seroquel) 25 mg PO BID PRN PRN Reason: Agitation Last Admin: 10/04/18 20:36 Dose: 25 mg Rosuvastatin Calcium (Crestor) 10 mg PO HS [facility] Last Admin: 10/07/18 22:24 Dose: 10 mg Saccharomyces Boulardii (Florastor) 250 mg PO BID [facility] Last Admin: 10/07/18 18:01 Dose: 250 mg Verapamil HCl (Calan Sr Tab) 180 mg PO DAILY [facility] Last Admin: 10/07/18 10:55 Dose: 180 mg - Labs Labs: 10/07/18 07:15 10/07/18 07:15 PT 10.0 SECONDS (9.7-12.2) 09/24/18 18:55 INR 0.9 09/24/18 18:55 APTT 28 SECONDS (21-34) 09/24/18 18:55 - Additional Findings Additional findings: - Constitutional Appears: No Acute Distress, Cachectic - Head Exam Head Exam: ATRAUMATIC, NORMAL INSPECTION - Eye Exam Eye Exam: EOMI - ENT Exam ENT Exam: Mucous Membranes Moist - Respiratory Exam Respiratory Exam: NORMAL BREATHING PATTERN. absent: Rales, Rhonchi, Wheezes - Cardiovascular Exam Cardiovascular Exam: +S1, +S2, Murmur - GI/Abdominal Exam GI & Abdominal Exam: Soft, Normal Bowel Sounds. absent: Distended, Tenderness - Extremities Exam Extremities Exam: Normal Inspection. absent: Pedal Edema, Tenderness - Neurological Exam Neurological Exam: Awake - Psychiatric Exam Psychiatric exam: Normal Affect, Normal Mood - Skin Skin Exam: Dry, Normal Color, Warm Assessment and Plan - Assessment and Plan (Free Text) Plan: Patient is a 83 year old M who was admitted for Altered mental status, found to be acute on chronic stroke with symptomatic severe aortic stenosis Acute on chronic CVA - Continue ASA 81mg PO daily, Crestor 10mg PO HS - Plavix 75 mg PO daily discontinued 2/2 risk of bleeding - Echo w/ bubble study showed no PFO, severe , and diastolic dysfunction, LVEF 65-70%; please refer to full report - Patient unable to complete MRA neck - Neurology on consult, Dr Manrique, help appreciated - Patient cleared from neurological standpoint as per neuro - Physical therapy ordered Imaging: * CT head: showed multiple old infarcts; no acute infarct seen; please refer to full report * Brain MRI:There are 2 tiny focal areas of mild restricted diffusion, both of which are located in the posterior temporoparietal cortices left slightly larger and the slightly more anterior in location on the right side. Note that the both of these foci are adjacent to, abutting areas of larger chronic infarcts left larger than right... Both of these foci could represent small acute/subacute areas of reversible ischemia (TIAs) or tiny acute/subacute infarcts. Note that a small components of shine through artifact cannot be excluded. No additional focal areas of abnormal restricted diffusion identified. Chronic confluent white matter ischemic changes with more discrete bifrontal infarcts left larger than right. There also chronic bilateral cerebellar infarcts * Echocardiogram: EF 65-70%, diastolic dysfunction, severe valvular aortic stenosis, aortic valve area 0.76cm2, borderline MVP * MRA Head: no occlusion or significant stenosis of [place] arterial anatomy. 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 Lujan; cardiology; thank you for your help - On echo, severe valvular aortic stenosis, aortic valve area 0.76cm2 - Per superior court judge, patient possibly needs cardiac cath and TAVR; however, patient and family refuse at this time. - Continue medical management NSTEMI; resolved - Dr. Lujan; cardiology; thank you for your help - EKG showed Nonspecific t-wave abnormality - Continue therapeutic lovenox, plavix daily - Troponins 0.1230, 0.1230, 0.0940 - Per superior court judge, patient possibly needs cardiac cath and TAVR; however, patient and family refuse at this time. Pneumonia - CXR showed consolidation in right middle lobes and right lower lobe, patchy infiltrate in left lower lobe (see full report) - CT chest: bilateral lower lobe consolidation, adjacent interstitial changes. Prominent mediastinal lymph nodes. Ectasia of ascending thoracic aorta 3.7cm (see full report) - Antibiotics: Avelox 400mg PO daily x 5 days (last dose to be given on 10/08/18) - Zosyn 3.375 Q8H (active from 09/25/18-10/04/18) and Vancomycin 1g Q24H (active from 09/25/18-10/03/18) - Continue Florastor 250mg PO BID - Continue Mucinex 600mg PO BID, Duonebs 3ml INH RQ6H PRN shortness of breath - Tessalon Pearles 100mg PO TID for cough suppression Suicidal Ideation; resolved - Psych on consult, Dr Brown, help appreciated Hx of Dementia - Donepizil 5mg daily - Continue Seroquel 25mg PO BID prn for agitation - Dr. Brown; psychiatry; thank you for your help Hx of BPH - Continue Finasteride 5mg PO daily Hx of bacteremia; [place] [facility] [place] - Blood cultures (09/24/18): no growth after 5 days Hyperglycemia - Hemoglobin A1c 5.1 GI/DVT ppx: - Eliquis 2.5 mg PO BID - hx of falls; fall precautions - PT/OT eval Dispo: Patient medically optimized for discharge to subacute rehab. Patient is stable for discharge to [facility] per Dr. Norris. Patient must continue all medications. Patient must follow up with PMD, Dr. Norris, within 1 week of discharge. If symptoms worsen or reoccur, patient should return to nearest ED. - Continue: * ASA 81mg PO daily * Crestor 10mg PO HS * Verapamil 180mg PO daily * Eliquis 2.5mg PO BID * Finasteride 5mg PO daily * Seroquel 25mg PO BID prn * Donepizil 5mg daily * Florastor 250mg PO BID * Mucinex 600mg PO BID * Duonebs 3ml INH RQ6H PRN shortness of breath * Tessalon Pearles 100mg PO TID for cough suppression Case discussed with Dr. Myrna Connelly, PGY2
[2018-10-08] MEDS: (Novolog) Insulin Aspart, Recombinant 100 u/ml 10 ml vial SC SCH ×4 (07:22→22:00)
[2018-10-08] MEDS: Albuterol-Ipratrop 3 mg / 0.5 (3 ml) UD INH PRN ×2 (07:31→21:44)
[2018-10-08] MEDS: Verapamil 180 mg ER Tab PO SCH (09:44)
[2018-10-08] MEDS: guaiFENesin 600 mg ER Tab PO SCH ×2 (09:45→18:02)
[2018-10-08] MEDS: Saccharomyces Boulardi 250 mg Cap PO SCH ×2 (10:54→18:02)
[2018-10-08] MEDS: Brimonidine 0.2% Opth Sol (5ml) OU SCH (10:54)
[2018-10-08 12:08] LABS: EOS # 0.1 K/uL (0.0-0.7); LYMPH # 1.6 K/uL (1.0-4.3); LYMPH % 16.9 % (20.0-40.0); MEAN PLATELET VOLUME 7.4 fL (7.2-11.7); MONO # 0.8 K/uL (0.0-0.8)
[2018-10-08 12:11] LABS: BASO # 0.1 K/uL (0.0-0.2); BASO % 0.6 % (0.0-2.0); EOS % 1.4 % (0.0-4.0); MEAN CELL VOLUME 86.5 fL (80.0-94.0); MEAN CORPUSCULAR HEMOGLOBIN 28.4 pg (27.0-31.0); MEAN CORPUSCULAR HGB CONC 32.8 g/dL (33.0-37.0); MONO % 8.2 % (0.0-10.0); NEUT # 6.7 K/uL (1.8-7.0); NEUT % 72.9 % (50.0-75.0); RBC 4.5 Mil/uL (4.40-5.90); RED CELL DISTRIBUTION WIDTH 17.8 % (11.5-14.5); WHITE BLOOD COUNT 9.2 K/uL (4.8-10.8)
[2018-10-08 12:16] LABS: HEMOGLOBIN 12.8 g/dL (12.0-18.0)
[2018-10-08 12:23] LABS: ALB/GLOB RATIO 0.9 (1.0-2.1); ALBUMIN 3.7 g/dL (3.5-5.0); ALT/SGPT 18 U/L (21-72); AST/SGOT 34 U/L (17-59); BLOOD UREA NITROGEN 30 mg/dL (9-20); CALCIUM 9.2 mg/dl (8.6-10.4); GFR NON-AFRICAN AMERICAN > 60
--- NOTE | 2018-10-08 14:38 | CP.PCM.PN ---
<Norma Gee - Last Filed: 10/08/18 14:33> Subjective - Date & Time of Evaluation Date of Evaluation: 10/08/18 Time of Evaluation: 14:33 - Subjective Subjective: PGY3 progress note for cardiology Pt seen and examined this am. Pt sitting comfortably in chair. currently denies having any SOB, abd pain, N/v, CP. Tolerating diet. Objective - Vital Signs/Intake and Output Vital Signs (last 24 hours): Temp Pulse Resp BP Pulse Ox 97.7 F 95 H 18 115/84 100 10/08/18 07:00 10/08/18 07:00 10/08/18 07:00 10/08/18 07:00 10/08/18 07:00 - Medications Medications: Current Medications Acetaminophen (Tylenol 325mg Tab) 650 mg PO Q6 PRN PRN Reason: Fever >100.4 F Last Admin: 10/02/18 00:14 Dose: 650 mg Albuterol/Ipratropium (Duoneb 3 Mg/0.5 Mg (3 Ml) Ud) 3 ml INH RQ6 PRN PRN Reason: Cough Last Admin: 10/08/18 07:31 Dose: 3 ml Apixaban (Eliquis) 2.5 mg PO BID [facility] Stop: 10/10/18 10:01 Last Admin: 10/08/18 09:45 Dose: 2.5 mg Aspirin (Aspirin Chewable) 81 mg PO DAILY [facility] Last Admin: 10/08/18 09:45 Dose: 81 mg Benzonatate (Tessalon Perles) 100 mg PO TID [facility] Last Admin: 10/08/18 13:26 Dose: 100 mg Brimonidine Tartrate (Alphagan 0.2% Opht) 0 ml OU DAILY [facility] Last Admin: 10/08/18 10:54 Dose: Not Given Donepezil HCl (Aricept) 5 mg PO HS [facility] Last Admin: 10/07/18 22:24 Dose: 5 mg Finasteride (Proscar) 5 mg PO DAILY [facility] Last Admin: 10/08/18 09:45 Dose: 5 mg Guaifenesin (Mucinex La) 600 mg PO BID [facility] Last Admin: 10/08/18 09:45 Dose: 600 mg Insulin Aspart (Novolog) 0 unit SC [facility]; Protocol Last Admin: 10/08/18 12:13 Dose: 1 unit Latanoprost (Xalatan Opht) 0 ml OU HS [facility] Last Admin: 10/07/18 22:24 Dose: 1 ml Lorazepam (Ativan) 0.5 mg IVP ONCE PRN PRN Reason: Agitation Last Admin: 10/04/18 00:14 Dose: 0.5 mg Lorazepam (Ativan) 0.5 mg IVP Q4H PRN PRN Reason: Anxiety Last Admin: 10/04/18 21:12 Dose: 0.5 mg Nicotine (Nicoderm Cq) 1 patch TD DAILY [facility] Last Admin: 10/08/18 09:46 Dose: 1 patch Quetiapine Fumarate (Seroquel) 25 mg PO BID PRN PRN Reason: Agitation Last Admin: 10/04/18 20:36 Dose: 25 mg Rosuvastatin Calcium (Crestor) 10 mg PO HS [facility] Last Admin: 10/07/18 22:24 Dose: 10 mg Saccharomyces Boulardii (Florastor) 250 mg PO BID [facility] Last Admin: 10/08/18 10:54 Dose: Not Given Verapamil HCl (Calan Sr Tab) 180 mg PO DAILY [facility] Last Admin: 10/08/18 09:44 Dose: 180 mg - Labs Labs: 10/08/18 11:53 10/08/18 11:53 PT 10.0 SECONDS (9.7-12.2) 09/24/18 18:55 INR 0.9 09/24/18 18:55 APTT 28 SECONDS (21-34) 09/24/18 18:55 - Constitutional Appears: Non-toxic, No Acute Distress - Head Exam Head Exam: ATRAUMATIC, NORMOCEPHALIC - ENT Exam ENT Exam: Mucous Membranes Moist - Respiratory Exam Respiratory Exam: Rales, Rhonchi - Cardiovascular Exam Cardiovascular Exam: REGULAR RHYTHM, Murmur - GI/Abdominal Exam GI & Abdominal Exam: Soft, Normal Bowel Sounds. absent: Distended, Firm, Guarding, Rigid, Tenderness, Organomegaly - Extremities Exam Extremities Exam: absent: Pedal Edema, Tenderness - Neurological Exam Neurological Exam: Alert, Awake - Psychiatric Exam Psychiatric exam: Normal Affect, Normal Mood - Skin Skin Exam: Dry, Intact, Normal Color, Warm Assessment and Plan - Assessment and Plan (Free Text) Assessment: Patient is a 83 year old M who was admitted for Altered mental status, found to be acute on chronic stroke with symptomatic severe aortic stenosis Acute on chronic CVA -Continue ASA 81mg PO daily -Plavix 75 mg PO daily discontinued 2/2 risk of bleeding -Continue Crestor 10mg PO HS -Echo w/ bubble study showed no PFO, severe , and diastolic dysfunction, LVEF 65-70%; please refer to full report -Patient cleared from neurological standpoint as per neuro Atrial fibrillation, Atrial flutter -On Verapamil 180mg PO daily -On Eliquis 2.5mg PO BID, Aspirin Severe Aortic Stenosis -On echo, severe valvular aortic stenosis, aortic valve area 0.76cm2 -Recommend cardiac cath and TAVR but family refusing at this time and want only medical management NSTEMI; resolved -Continue Aspirin, Eliquis, Crestor -Troponins 0.1230, 0.1230, 0.0940 -Patient and family refusing cardiac cath at this time -Continue medical management Pneumonia -Completed course of Abx -Continue Florastor 250mg PO BID -Continue Mucinex 600mg PO BID, Duonebs 3ml INH RQ6H PRN shortness of breath -Tessalon Pearles 100mg PO TID added for cough suppression Suicidal Ideation; resolved -Patient placed on 1:1 for safety -Psych on consult, Dr Brown, help appreciated Hx of Dementia -Donepizil 5mg daily -Continue Seroquel 25mg PO BID prn for agitation -Dr. Brown; psychiatry consulted Hx of BPH -Continue Finasteride 5mg PO daily Case discussed with attending, Dr. Lujan <Sharan Lujan - Last Filed: 10/09/18 08:35> Objective - Vital Signs/Intake and Output Vital Signs (last 24 hours): Temp Pulse Resp BP Pulse Ox 97.6 F 89 20 130/75 99 10/09/18 07:00 10/09/18 07:00 10/09/18 07:00 10/09/18 07:00 10/09/18 07:00 - Medications Medications: Current Medications Acetaminophen (Tylenol 325mg Tab) 650 mg PO Q6 PRN PRN Reason: Fever >100.4 F Last Admin: 10/02/18 00:14 Dose: 650 mg Albuterol/Ipratropium (Duoneb 3 Mg/0.5 Mg (3 Ml) Ud) 3 ml INH RQ6 [facility] Last Admin: 10/09/18 07:36 Dose: 3 ml Apixaban (Eliquis) 2.5 mg PO BID [facility] Stop: 10/10/18 10:01 Last Admin: 10/08/18 18:01 Dose: 2.5 mg Aspirin (Aspirin Chewable) 81 mg PO DAILY [facility] Last Admin: 10/08/18 09:45 Dose: 81 mg Benzonatate (Tessalon Perles) 100 mg PO TID [facility] Last Admin: 10/08/18 18:02 Dose: 100 mg Brimonidine Tartrate (Alphagan 0.2% Opht) 0 ml OU DAILY [facility] Last Admin: 10/08/18 10:54 Dose: Not Given Donepezil HCl (Aricept) 5 mg PO HS [facility] Last Admin: 10/08/18 22:08 Dose: 5 mg Finasteride (Proscar) 5 mg PO DAILY [facility] Last Admin: 10/08/18 09:45 Dose: 5 mg Guaifenesin (Mucinex La) 600 mg PO BID [facility] Last Admin: 10/08/18 18:02 Dose: 600 mg Insulin Aspart (Novolog) 0 unit SC [facility]; Protocol Last Admin: 10/09/18 08:05 Dose: Not Given Latanoprost (Xalatan Opht) 0 ml OU HS [facility] Last Admin: 10/08/18 22:09 Dose: Not Given Lorazepam (Ativan) 0.5 mg IVP ONCE PRN PRN Reason: Agitation Last Admin: 10/04/18 00:14 Dose: 0.5 mg Lorazepam (Ativan) 0.5 mg IVP Q4H PRN PRN Reason: Anxiety Last Admin: 10/04/18 21:12 Dose: 0.5 mg Nicotine (Nicoderm Cq) 1 patch TD DAILY [facility] Last Admin: 10/08/18 09:46 Dose: 1 patch Quetiapine Fumarate (Seroquel) 25 mg PO BID PRN PRN Reason: Agitation Last Admin: 10/04/18 20:36 Dose: 25 mg Rosuvastatin Calcium (Crestor) 10 mg PO HS [facility] Last Admin: 10/08/18 22:08 Dose: 10 mg Saccharomyces Boulardii (Florastor) 250 mg PO BID [facility] Last Admin: 10/08/18 18:02 Dose: 250 mg Verapamil HCl (Calan Sr Tab) 180 mg PO DAILY [facility] Last Admin: 10/08/18 09:44 Dose: 180 mg - Labs Labs: 10/08/18 11:53 10/08/18 11:53 PT 10.0 SECONDS (9.7-12.2) 09/24/18 18:55 INR 0.9 09/24/18 18:55 APTT 28 SECONDS (21-34) 09/24/18 18:55 Assessment and Plan - Assessment and Plan (Free Text) Assessment: Patient seen and evaluated with the medical records administrator. Plan of care discussed and as documented
[2018-10-08 16:59] LABS: SQUAMOUS EPITHIAL 1 /hpf (0-5); URINE BILIRUBIN NEGATIVE (NEGATIVE); URINE BLOOD NEGATIVE (NEGATIVE); URINE CLARITY Clear (Clear); URINE COLOR Yellow (YELLOW); URINE GLUCOSE (UA) NORMAL (Normal); URINE LEUKOCYTE ESTERASE 1+ Leu/uL (Negative); URINE PROTEIN NEGATIVE (NEGATIVE); URINE UROBILINOGEN NORMAL mg/dL (0.2-1.0)
[2018-10-08] MEDS: Latanoprost 2.5 ml Opht Soln OU SCH (22:09)
[2018-10-09] MEDS: Albuterol-Ipratrop 3 mg / 0.5 (3 ml) UD INH SCH ×4 (03:45→19:38)
[2018-10-09] MEDS: (Novolog) Insulin Aspart, Recombinant 100 u/ml 10 ml vial SC SCH ×4 (08:05→22:14)
[2018-10-09] MEDS: Saccharomyces Boulardi 250 mg Cap PO SCH ×2 (09:45→18:30)
[2018-10-09] MEDS: guaiFENesin 600 mg ER Tab PO SCH ×2 (09:46→18:29)
[2018-10-09] MEDS: Verapamil 180 mg ER Tab PO SCH (09:58)
[2018-10-09] MEDS: Brimonidine 0.2% Opth Sol (5ml) OU SCH (10:12)
--- NOTE | 2018-10-09 21:07 | CP.PCM.PN ---
Subjective - Date & Time of Evaluation Date of Evaluation: 10/09/18 Time of Evaluation: 15:15 - Subjective Subjective: Pt seen and examined this am. Pt sitting comfortably in chair. currently denies having any SOB, abd pain, N/v, CP. Tolerating diet. Physical examination - Constitutional Appears: Non-toxic, No Acute Distress - Head Exam Head Exam: ATRAUMATIC, NORMOCEPHALIC - ENT Exam ENT Exam: Mucous Membranes Moist - Respiratory Exam Respiratory Exam: Rales, Rhonchi - Cardiovascular Exam Cardiovascular Exam: REGULAR RHYTHM, Murmur - GI/Abdominal Exam GI & Abdominal Exam: Soft, Normal Bowel Sounds. absent: Distended, Firm, Guarding, Rigid, Tenderness, Organomegaly - Extremities Exam Extremities Exam: absent: Pedal Edema, Tenderness - Neurological Exam Neurological Exam: Alert, Awake - Psychiatric Exam Psychiatric exam: Normal Affect, Normal Mood - Skin Skin Exam: Dry, Intact, Normal Color, Warm Assessment and Plan - Assessment and Plan (Free Text) Assessment: Patient is a 83 year old M who was admitted for Altered mental status, found to be acute on chronic stroke with symptomatic severe aortic stenosis Acute on chronic CVA -Continue ASA 81mg PO daily -Plavix 75 mg PO daily discontinued 2/2 risk of bleeding -Continue Crestor 10mg PO HS -Echo w/ bubble study showed no PFO, severe , and diastolic dysfunction, LVEF 65-70%; please refer to full report -Patient cleared from neurological standpoint as per neuro Atrial fibrillation, Atrial flutter -On Verapamil 180mg PO daily -On Eliquis 2.5mg PO BID, Aspirin Severe Aortic Stenosis -On echo, severe valvular aortic stenosis, aortic valve area 0.76cm2 -Recommend cardiac cath and TAVR but family refusing at this time and want only medical management NSTEMI; resolved -Continue Aspirin, Eliquis, Crestor -Troponins 0.1230, 0.1230, 0.0940 -Patient and family refusing cardiac cath at this time -Continue medical management Pneumonia -Completed course of Abx -Continue Florastor 250mg PO BID -Continue Mucinex 600mg PO BID, Duonebs 3ml INH RQ6H PRN shortness of breath -Tessalon Pearles 100mg PO TID added for cough suppression Suicidal Ideation; resolved -Patient placed on 1:1 for safety -Psych on consult, Dr Brown, help appreciated Hx of Dementia -Donepizil 5mg daily -Continue Seroquel 25mg PO BID prn for agitation -Dr. Brown; psychiatry consulted Hx of BPH -Continue Finasteride 5mg PO daily Objective - Vital Signs/Intake and Output Vital Signs (last 24 hours): Temp Pulse Resp BP Pulse Ox 97.9 F 60 20 120/68 95 10/09/18 15:35 10/09/18 15:35 10/09/18 15:35 10/09/18 15:35 10/09/18 15:35 - Medications Medications: Current Medications Acetaminophen (Tylenol 325mg Tab) 650 mg PO Q6 PRN PRN Reason: Fever >100.4 F Last Admin: 10/02/18 00:14 Dose: 650 mg Albuterol/Ipratropium (Duoneb 3 Mg/0.5 Mg (3 Ml) Ud) 3 ml INH RQ6 [facility] [place] Last Admin: 10/09/18 19:38 Dose: 3 ml Apixaban (Eliquis) 2.5 mg PO BID [facility] [place] Stop: 10/10/18 10:01 Last Admin: 10/09/18 18:29 Dose: 2.5 mg Aspirin (Aspirin Chewable) 81 mg PO DAILY [facility] [place] Last Admin: 10/09/18 10:13 Dose: 81 mg Benzonatate (Tessalon Perles) 100 mg PO TID [facility] [place] Last Admin: 10/09/18 18:29 Dose: 100 mg Brimonidine Tartrate (Alphagan 0.2% Opht) 0 ml OU DAILY [facility] [place] Last Admin: 10/09/18 10:12 Dose: 1 drop Donepezil HCl (Aricept) 5 mg PO HS [facility] [place] Last Admin: 10/08/18 22:08 Dose: 5 mg Finasteride (Proscar) 5 mg PO DAILY [facility] [place] Last Admin: 10/09/18 09:47 Dose: 5 mg Guaifenesin (Mucinex La) 600 mg PO BID [facility] [place] Last Admin: 10/09/18 18:29 Dose: 600 mg Insulin Aspart (Novolog) 0 unit SC ACHS [facility] [place]; Protocol Last Admin: 10/09/18 16:30 Dose: Not Given Latanoprost (Xalatan Opht) 0 ml OU HS [facility] [place] Last Admin: 10/08/18 22:09 Dose: Not Given Lorazepam (Ativan) 0.5 mg IVP ONCE PRN PRN Reason: Agitation Last Admin: 10/04/18 00:14 Dose: 0.5 mg Lorazepam (Ativan) 0.5 mg IVP Q4H PRN PRN Reason: Anxiety Last Admin: 10/04/18 21:12 Dose: 0.5 mg Nicotine (Nicoderm Cq) 1 patch TD DAILY [facility] [place] Last Admin: 10/09/18 09:58 Dose: 1 patch Quetiapine Fumarate (Seroquel) 25 mg PO BID PRN PRN Reason: Agitation Last Admin: 10/04/18 20:36 Dose: 25 mg Rosuvastatin Calcium (Crestor) 10 mg PO HS [facility] [place] Last Admin: 10/08/18 22:08 Dose: 10 mg Saccharomyces Boulardii (Florastor) 250 mg PO BID [facility] [place] Last Admin: 10/09/18 18:30 Dose: 250 mg Verapamil HCl (Calan Sr Tab) 180 mg PO DAILY [facility] [place] Last Admin: 10/09/18 09:58 Dose: 180 mg - Labs Labs: 10/08/18 11:53 10/08/18 11:53 PT 10.0 SECONDS (9.7-12.2) 09/24/18 18:55 INR 0.9 09/24/18 18:55 APTT 28 SECONDS (21-34) 09/24/18 18:55
[2018-10-09] MEDS: Latanoprost 2.5 ml Opht Soln OU SCH (22:00)
[2018-10-10] MEDS: Albuterol-Ipratrop 3 mg / 0.5 (3 ml) UD INH SCH ×4 (01:54→19:29)
[2018-10-10] MEDS: (Novolog) Insulin Aspart, Recombinant 100 u/ml 10 ml vial SC SCH ×4 (08:00→22:31)
[2018-10-10] MEDS: Verapamil 180 mg ER Tab PO SCH (10:33)
[2018-10-10] MEDS: guaiFENesin 600 mg ER Tab PO SCH ×2 (10:34→17:38)
[2018-10-10] MEDS: Brimonidine 0.2% Opth Sol (5ml) OU SCH (10:35)
[2018-10-10] MEDS: Saccharomyces Boulardi 250 mg Cap PO SCH ×2 (10:40→17:38)
--- NOTE | 2018-10-10 20:02 | CP.PCM.PN ---
Subjective - Date & Time of Evaluation Date of Evaluation: 10/10/18 Time of Evaluation: 09:25 - Subjective Subjective: Patient seen and evaluated No cardiac events noted Physical examination - Constitutional Appears: Non-toxic, No Acute Distress - Head Exam Head Exam: ATRAUMATIC, NORMOCEPHALIC - ENT Exam ENT Exam: Mucous Membranes Moist - Respiratory Exam Respiratory Exam: Rales, Rhonchi - Cardiovascular Exam Cardiovascular Exam: REGULAR RHYTHM, Murmur - GI/Abdominal Exam GI & Abdominal Exam: Soft, Normal Bowel Sounds. absent: Distended, Firm, Guarding, Rigid, Tenderness, Organomegaly - Extremities Exam Extremities Exam: absent: Pedal Edema, Tenderness - Neurological Exam Neurological Exam: Alert, Awake - Psychiatric Exam Psychiatric exam: Normal Affect, Normal Mood - Skin Skin Exam: Dry, Intact, Normal Color, Warm Assessment and Plan - Assessment and Plan (Free Text) Assessment: Patient is a 83 year old M who was admitted for Altered mental status, found to be acute on chronic stroke with symptomatic severe aortic stenosis Acute on chronic CVA -Continue ASA 81mg PO daily -Plavix 75 mg PO daily discontinued 2/2 risk of bleeding -Continue Crestor 10mg PO HS -Echo w/ bubble study showed no PFO, severe , and diastolic dysfunction, LVEF 65-70%; please refer to full report -Patient cleared from neurological standpoint as per neuro Atrial fibrillation, Atrial flutter -On Verapamil 180mg PO daily -On Eliquis 2.5mg PO BID, Aspirin Severe Aortic Stenosis -On echo, severe valvular aortic stenosis, aortic valve area 0.76cm2 -Recommend cardiac cath and TAVR but family refusing at this time and want only medical management NSTEMI; resolved -Continue Aspirin, Eliquis, Crestor -Troponins 0.1230, 0.1230, 0.0940 -Patient and family refusing cardiac cath at this time -Continue medical management Pneumonia -Completed course of Abx -Continue Florastor 250mg PO BID -Continue Mucinex 600mg PO BID, Duonebs 3ml INH RQ6H PRN shortness of breath -Tessalon Pearles 100mg PO TID added for cough suppression Suicidal Ideation; resolved -Patient placed on 1:1 for safety -Psych on consult, Dr Brown, help appreciated Hx of Dementia -Donepizil 5mg daily -Continue Seroquel 25mg PO BID prn for agitation -Dr. Brown; psychiatry consulted Hx of BPH -Continue Finasteride 5mg PO daily Objective - Vital Signs/Intake and Output Vital Signs (last 24 hours): Temp Pulse Resp BP Pulse Ox 97.7 F 98 H 20 104/72 94 L 10/10/18 07:00 10/10/18 09:59 10/10/18 07:00 10/10/18 07:00 10/10/18 07:00 - Medications Medications: Current Medications Acetaminophen (Tylenol 325mg Tab) 650 mg PO Q6 PRN PRN Reason: Fever >100.4 F Last Admin: 10/02/18 00:14 Dose: 650 mg Albuterol/Ipratropium (Duoneb 3 Mg/0.5 Mg (3 Ml) Ud) 3 ml INH RQ6 [facility] Last Admin: 10/10/18 19:29 Dose: 3 ml Aspirin (Aspirin Chewable) 81 mg PO DAILY [facility] Last Admin: 10/10/18 10:34 Dose: 81 mg Benzonatate (Tessalon Perles) 100 mg PO TID [facility] Last Admin: 10/10/18 17:38 Dose: 100 mg Brimonidine Tartrate (Alphagan 0.2% Opht) 0 ml OU DAILY [facility] Last Admin: 10/10/18 10:35 Dose: 1 drop Donepezil HCl (Aricept) 5 mg PO HS [facility] Last Admin: 10/09/18 22:14 Dose: 5 mg Finasteride (Proscar) 5 mg PO DAILY [facility] Last Admin: 10/10/18 10:34 Dose: 5 mg Guaifenesin (Mucinex La) 600 mg PO BID [facility] Last Admin: 10/10/18 17:38 Dose: 600 mg Insulin Aspart (Novolog) [address] [facility]; Protocol Last Admin: 10/10/18 12:29 Dose: Not Given Latanoprost (Xalatan Opht) 0 ml OU HS [facility] Last Admin: 10/09/18 22:00 Dose: Not Given Lorazepam (Ativan) 0.5 mg IVP ONCE PRN PRN Reason: Agitation Last Admin: 10/04/18 00:14 Dose: 0.5 mg Lorazepam (Ativan) 0.5 mg IVP Q4H PRN PRN Reason: Anxiety Last Admin: 10/04/18 21:12 Dose: 0.5 mg Nicotine (Nicoderm Cq) 1 patch TD DAILY [facility] Last Admin: 10/10/18 10:34 Dose: 1 patch Quetiapine Fumarate (Seroquel) 25 mg PO BID PRN PRN Reason: Agitation Last Admin: 10/04/18 20:36 Dose: 25 mg Rosuvastatin Calcium (Crestor) 10 mg PO HS [facility] Last Admin: 10/08/18 22:08 Dose: 10 mg Saccharomyces Boulardii (Florastor) 250 mg PO BID [facility] Last Admin: 10/10/18 17:38 Dose: 250 mg Verapamil HCl (Calan Sr Tab) 180 mg PO DAILY [facility] Last Admin: 10/10/18 10:33 Dose: 180 mg - Labs Labs: 10/08/18 11:53 10/08/18 11:53 PT 10.0 SECONDS (9.7-12.2) 09/24/18 18:55 INR 0.9 09/24/18 18:55 APTT 28 SECONDS (21-34) 09/24/18 18:55
[2018-10-10] MEDS: Latanoprost 2.5 ml Opht Soln OU SCH (21:46)
[2018-10-11] MEDS: Albuterol-Ipratrop 3 mg / 0.5 (3 ml) UD INH SCH ×3 (07:45→21:10)
[2018-10-11] MEDS: (Novolog) Insulin Aspart, Recombinant 100 u/ml 10 ml vial SC SCH ×4 (08:01→21:48)
--- NOTE | 2018-10-11 08:12 | CP.PCM.PN ---
Subjective - Date & Time of Evaluation Date of Evaluation: 10/11/18 Time of Evaluation: 08:07 - Subjective Subjective: Progress note for Dr. Norris Patient was seen and examined at bedside in no acute distress. Patient reports "feeling better today" and has no complaints. No events overnight reported. ROS negative. Patient is oriented to person and place, but not time (September 1930). Patient was then reevaluated during a LABORATORY EQUIPMENT CLEANER, which was called for lethargy and hypotension. Objective - Vital Signs/Intake and Output Vital Signs (last 24 hours): Temp Pulse Resp BP Pulse Ox 98.9 F 101 H 20 131/74 94 L 10/10/18 23:30 10/10/18 23:30 10/10/18 23:30 10/10/18 23:30 10/10/18 23:30 - Medications Medications: Current Medications Acetaminophen (Tylenol 325mg Tab) 650 mg PO Q6 PRN PRN Reason: Fever >100.4 F Last Admin: 10/02/18 00:14 Dose: 650 mg Albuterol/Ipratropium (Duoneb 3 Mg/0.5 Mg (3 Ml) Ud) 3 ml INH RQ6 [facility] Last Admin: 10/10/18 19:29 Dose: 3 ml Aspirin (Aspirin Chewable) 81 mg PO DAILY [facility] Last Admin: 10/10/18 10:34 Dose: 81 mg Benzonatate (Tessalon Perles) 100 mg PO TID [facility] Last Admin: 10/10/18 17:38 Dose: 100 mg Brimonidine Tartrate (Alphagan 0.2% Opht) 0 ml OU DAILY [facility] Last Admin: 10/10/18 10:35 Dose: 1 drop Finasteride (Proscar) 5 mg PO DAILY [facility] Last Admin: 10/10/18 10:34 Dose: 5 mg Guaifenesin (Mucinex La) 600 mg PO BID [facility] Last Admin: 10/10/18 17:38 Dose: 600 mg Insulin Aspart (Novolog) 0 unit SC ACHS [facility]; Protocol Last Admin: 10/11/18 08:01 Dose: Not Given Latanoprost (Xalatan Opht) 0 ml OU HS [facility] Last Admin: 10/10/18 21:46 Dose: 2.5 ml Lorazepam (Ativan) 0.5 mg IVP ONCE PRN PRN Reason: Agitation Last Admin: 10/04/18 00:14 Dose: 0.5 mg Lorazepam (Ativan) 0.5 mg IVP Q4H PRN PRN Reason: Anxiety Last Admin: 10/04/18 21:12 Dose: 0.5 mg Nicotine (Nicoderm Cq) 1 patch TD DAILY [facility] Last Admin: 10/10/18 10:34 Dose: 1 patch Quetiapine Fumarate (Seroquel) 25 mg PO BID PRN PRN Reason: Agitation Last Admin: 10/04/18 20:36 Dose: 25 mg Rosuvastatin Calcium (Crestor) 10 mg PO HS [facility] Last Admin: 10/10/18 22:32 Dose: 10 mg Saccharomyces Boulardii (Florastor) 250 mg PO BID [facility] Last Admin: 10/10/18 17:38 Dose: 250 mg Verapamil HCl (Calan Sr Tab) 180 mg PO DAILY [facility] Last Admin: 10/10/18 10:33 Dose: 180 mg - Labs Labs: 10/08/18 11:53 10/08/18 11:53 PT 10.0 SECONDS (9.7-12.2) 09/24/18 18:55 INR 0.9 09/24/18 18:55 APTT 28 SECONDS (21-34) 09/24/18 18:55 - Additional Findings Additional findings: - Constitutional Appears: No Acute Distress, Cachectic - Head Exam Head Exam: ATRAUMATIC, NORMAL INSPECTION - Eye Exam Eye Exam: EOMI - ENT Exam ENT Exam: Mucous Membranes Moist - Respiratory Exam Respiratory Exam: NORMAL BREATHING PATTERN. absent: Rales, Rhonchi, Wheezes - Cardiovascular Exam Cardiovascular Exam: +S1, +S2, Murmur, irregular rhythm - GI/Abdominal Exam GI & Abdominal Exam: Soft, Normal Bowel Sounds. absent: Distended, Tenderness - Extremities Exam Extremities Exam: Normal Inspection. absent: Pedal Edema, Tenderness - Neurological Exam Neurological Exam: Awake, oriented x2 (person, place, not time) - Psychiatric Exam Psychiatric exam: Normal Affect, Normal Mood - Skin Skin Exam: Dry, Normal Color, Warm Assessment and Plan - Assessment and Plan (Free Text) Plan: Patient is a 83 year old M who was admitted for Altered mental status, found to be acute on chronic stroke with symptomatic severe aortic stenosis Urosepsis? Prostatitis? - LABORATORY EQUIPMENT CLEANER called for lethargy, hypotensive; WBC elevated at 26.3 - Hx of multiple admissions for urosepsis; last admission was 3 months ago at [facility] [place] - Urine and blood cx ordered (urine and blood cultures from 10/08/18 were negative): f/u - Lactic acid: f/u - Procal: f/u - Started Vanco 1gm IV Q24h (started on 10/11/18) - Started Cefepime 1gm IV Q12h (started on 10/11/18) - Placed on telemetry, will continue to monitor - ID consulted, Dr. Pastrana; help appreciated. Hypotension - Likely secondary to urosepsis and dehydration - Held verapimil - Gave 250cc NS bolus, followed by NS@80mls/hr. - Ordered chest xray s/p bolus: mild hyperinflation suggestion chronic barby festation of COPD w/chronic interstitial changes and/or fibrosis b/l bases; chronic bibasilar atelectasis; b/l effusions w/ silhouetting bother posterior sulci. Acute on chronic CVA - Head CT ordered (10/11/18) due to lethargy, change in MS: no acute changes; chronic left frontal and left posterior temporoparietal infarct; small chronic right posterior tempororparietal watershed zone infarct; scattered chronic b/l basal nuclei and b/l basal nuclei and b'l cerebellar lacunar type infarct; moderate to significant generalized volume loss; mottled appearance of the inner table of calvarium w/scattered lucencies. - Continue ASA 81mg PO daily, Crestor 10mg PO HS - Plavix 75 mg PO daily discontinued 2/2 risk of bleeding - Echo w/ bubble study showed no PFO, severe , and diastolic dysfunction, LVEF 65-70%; please refer to full report - Patient unable to complete MRA neck - Neurology on consult, Dr Manrique, help appreciated - Patient cleared from neurological standpoint as per neuro - Physical therapy ordered Imaging: * CT head: showed multiple old infarcts; no acute infarct seen; please refer to full report * Brain MRI:There are 2 tiny focal areas of mild restricted diffusion, both of which are located in the posterior temporoparietal cortices left slightly la rger and the slightly more anterior in location on the right side. Note that the both of these foci are adjacent to, abutting areas of larger chronic infarcts left larger than right... Both of these foci could represent small acute/subacute areas of reversible ischemia (TIAs) or tiny acute/subacute infarcts. Note that a small components of shine through artifact cannot be excluded. No additional focal areas of abnormal restricted diffusion identified. Chronic confluent white matter ischemic changes with more discrete bifrontal infarcts left larger than right. There also chronic bilateral c erebellar infarcts * Echocardiogram: EF 65-70%, diastolic dysfunction, severe valvular aortic stenosis, aortic valve area 0.76cm2, borderline MVP * MRA Head: no occlusion or significant stenosis of [place] arterial anatomy. Mildly hypoplastic left vertebral artery w/ right dominant vertebrob asilar circulation Atrial fibrillation, Atrial flutter - Patient was on cardizem drip--> Drip discontinued - On Verapamil 180mg PO daily- held on 10/11/18 due to hypotension, lethargy - On Eliquis 2.5mg PO BID Severe Aortic Stenosis - Dr. Lujan; cardiology; thank you for your help - On echo, severe valvular aortic stenosis, aortic valve area 0.76cm2 - Per bus washer, patient possibly needs cardiac cath and TAVR; however, patient and family refuse at this time. - Continue medical management NSTEMI; resolved - Dr. Lujan; cardiology; thank you for your help - EKG showed Nonspecific t-wave abnormality - Continue therapeutic lovenox, plavix daily - Troponins 0.1230, 0.1230, 0.0940 - Per bus washer, patient possibly needs cardiac cath and TAVR; however, patient and family refuse at this time. Pneumonia - CXR showed consolidation in right middle lobes and right lower lobe, patchy infiltrate in left lower lobe (see full report) - CT chest: bilateral lower lobe consolidation, adjacent interstitial changes. Prominent mediastinal lymph nodes. Ectasia of ascending thoracic aorta 3.7cm (see full report) - Antibiotics: Avelox 400mg PO daily x 5 days (last dose given on 10/08/18) - Zosyn 3.375 Q8H (active from 09/25/18-10/04/18) and Vancomycin 1g Q24H (active from 09/25/18-10/03/18) - Continue Florastor 250mg PO BID - Continue Mucinex 600mg PO BID, Duonebs 3ml INH RQ6H PRN shortness of breath - Tessalon Pearles 100mg PO TID for cough suppression Suicidal Ideation; resolved - Psych on consult, Dr Brown, help appreciated Hx of Dementia - Donepizil 5mg daily - Continue Seroquel 25mg PO BID prn for agitation - Dr. Brown; psychiatry; thank you for your help Hx of BPH - Continue Finasteride 5mg PO daily Hx of bacteremia; treated at [facility] [place] 3mo ago - Blood cultures (09/24/18): no growth after 5 days Hyperglycemia - Hemoglobin A1c 5.1 GI/DVT ppx: - Eliquis 2.5 mg PO BID - hx of falls; fall precautions - PT/OT eval Dispo: Patient not medically stable, discharge canceled. Case discussed with and patient seen with Dr. Myrna Connelly, PGY2
[2018-10-11] MEDS ORDERED: Sodium Chloride 0.9% 250 ML IV ONE (10:04)
[2018-10-11] MEDS ORDERED: Sodium Chloride 0.9% 1,000 ML IV SCH ×2 (10:15→11:00)
--- NOTE | 2018-10-11 10:18 | PCM.RRT ---
<Rashida Smith - Last Filed: 10/11/18 13:09> [employer] Nurses Assessment - Situation Date: 10/11/18 New IV Insertion Tolerance: Good - Constitutional Appears: Cachectic, Chronically Ill - Head Head Exam: NORMAL INSPECTION - Eyes Eye Exam: EOMI - Respiratory Exam Respiratory Exam: Decreased Breath Sounds, NORMAL BREATHING PATTERN. absent: Rhonchi, Wheezes, Respiratory Distress - Cardiovascular Exam Cardiovascular Exam: Irregular Rhythm, +S1, +S2 - GI/Abdominal Exam GI & Abdominal Exam: Soft, Normal Bowel Sounds. absent: Distended, Firm, Tenderness - Neurological Exam Neurological Exam: Awake - Extremities Exam Extremities Exam: absent: Pedal Edema, Tenderness Plan - Assessment of Findings&Treatment Plan [employer] SUPERVISOR was called at 9:55am for lethargy and hypotension. Patients vitals were taken which showed left arm BP 75/50, HR 43, right arm BP 95/56, and glucose 184. Repeat blood pressures continued to measure in the 70s/50s in the left arm and 90/50s in the right arm. Patient was placed in trendelenbergs and BP cuffed was switched to pediatric size cuff (as patient is cachectic, 99lbs, BMI 15.5). BP with pediatric cuff was 92/60. Patient appears dry, dehydrated. Ordered stat labs, 250cc bolus of NS, and held verapimil. Ordered chest portable to be taken post bolus and maintenance fluids (NS@50mls/hr) to be started after bolus finishes. BP prior to starting IVF 90/56. BP after fluid bolus 103/70. Placed on telemetry and will continue to monitor. <Demond Sndyer - Last Filed: 10/11/18 15:03> Attending/Attestation - Attestation I have personally seen and examined this patient.: Yes I have fully participated in the care of the patient.: Yes I have reviewed all pertinent clinical information, including history, physical exam and plan: Yes Notes (Text): 10/11/18 15:01 [employer] SUPER[employer]OR was called and we came and evaluated the patient. The patient blood sugar was stable, we also aquired a smaller BP cuff as well. A small fluid bolus was given, stat labs ordered as well. The patient was able to respond to very simple commands and was able to stick toung out, lift both legs > 5 seconds and arms both sides From what I was informed he has been here for quite some time now Demond Snyder
[2018-10-11 10:22] LABS: BASO # 0.1 K/uL (0.0-0.2); BASO % 0.4 % (0.0-2.0); EOS % 0.1 % (0.0-4.0); LYMPH # 1.3 K/uL (1.0-4.3); MEAN CORPUSCULAR HEMOGLOBIN 27.2 pg (27.0-31.0); MEAN PLATELET VOLUME 6.9 fL (7.2-11.7); MONO # 1.2 K/uL (0.0-0.8); MONO % 4.6 % (0.0-10.0); NEUT # 23.6 K/uL (1.8-7.0); NEUT % 89.9 % (50.0-75.0); PLATELET COUNT 482 K/uL (130-400); RBC 3.93 Mil/uL (4.40-5.90); RED CELL DISTRIBUTION WIDTH 17.3 % (11.5-14.5)
[2018-10-11 10:29] LABS: HEMOGLOBIN 10.7 g/dL (12.0-18.0); WHITE BLOOD COUNT 26.3 K/uL (4.8-10.8)
[2018-10-11] MEDS: guaiFENesin 600 mg ER Tab PO SCH ×2 (10:32→18:05)
[2018-10-11] MEDS: Saccharomyces Boulardi 250 mg Cap PO SCH ×2 (10:33→18:05)
[2018-10-11] MEDS: Verapamil 180 mg ER Tab PO SCH (10:36)
[2018-10-11] MEDS: Brimonidine 0.2% Opth Sol (5ml) OU SCH (10:39)
[2018-10-11 11:19] LABS: ALB/GLOB RATIO 0.9 (1.0-2.1); ALBUMIN 3.3 g/dL (3.5-5.0); ALT/SGPT 19 U/L (21-72); AST/SGOT 35 U/L (17-59); BLOOD UREA NITROGEN 37 mg/dL (9-20); CALCIUM 8.9 mg/dl (8.6-10.4); GFR NON-AFRICAN AMERICAN 53
--- NOTE | 2018-10-11 11:44 | RAD ---
Date of service: 10/11/2018 HISTORY: CVA COMPARISON: Comparison made with prior study dated 10/01/2018.. FINDINGS: LUNGS: Mild hyperinflation suggesting chronic manifestations of COPD with what appears represent chronic interstitial changes and/or fibrosis both lung bases. There may also be some chronic bibasilar atelectasis as well. Suspect bilateral effusions with silhouetting both posterior sulci PLEURA: As above. No pneumothorax apparent. CARDIOVASCULAR: Mild aortic atherosclerotic calcification present. Heart is mildly enlarged.. No pulmonary vascular congestion. OSSEOUS STRUCTURES: Multilevel degenerative spondylosis of the cervical and lumbar spine. There is a dextroscoliosis centered at the thoracolumbar junction possibly compensatory for a levoscoliosis in the mid lumbar region.. VISUALIZED UPPER ABDOMEN: Normal. OTHER FINDINGS: None. IMPRESSION: Mild hyperinflation suggesting chronic manifestations of COPD with what appears represent chronic interstitial changes and/or fibrosis both lung bases. There may also be some chronic bibasilar atelectasis as well. Suspect bilateral effusions with silhouetting both posterior sulci
[2018-10-11 12:14] LABS: ANISOCYTOSIS SLIGHT; BANDS 2 % (0-2); HYPOCHROMIC SLIGHT; LYMPHOCYTE 5 % (20-40); MONOCYTE 4 % (0-10); NEUTROPHIL 89 % (50-75); PLATELET ESTIMATE SLIGHTLY INCREASED (NORMAL); POLYCHROMIC SLIGHT; TOTAL CELLS COUNTED 100
--- NOTE | 2018-10-11 12:38 | CT ---
Date of service: 10/11/2018 PROCEDURE: CT HEAD WITHOUT CONTRAST. HISTORY: Lethargy,, change in ms COMPARISON: Comparison made with prior CT scan of the brain 09/24/2018.. TECHNIQUE: Axial computed tomography images were obtained through the head/brain without intravenous contrast. Radiation dose: Total exam DLP = 753.38 mGy-cm. This CT exam was performed using one or more of the following dose reduction techniques: Automated exposure control, adjustment of the mA and/or kV according to patient size, and/or use of iterative reconstruction technique. FINDINGS: HEMORRHAGE: No acute parenchymal, subarachnoid or extra-axial hemorrhage. BRAIN: Redemonstrated are moderate diffuse/confluent chronic periventricular white matter ischemic changes. More discrete chronic appearing infarcts in the left frontal and left posterior temporal parietal watershed zones also again seen.. Suspect small chronic infarct felt present in the right posterior temporoparietal watershed zone. Well. Additionally, there are scattered chronic bilateral basal nuclei and cerebellar lacunar type infarcts.. Note that the possibility of a small hyperacute infarct cannot be excluded on this study. Clinical correlation recommended. Moderate to significant generalized volume loss. VENTRICLES: No obstructive hydrocephalus. CALVARIUM: Mottled appearance of the inner table of the calvarium with scattered lucencies. Clinical correlation recommended. PARANASAL SINUSES: Unremarkable as visualized. No significant inflammatory changes. MASTOID AIR CELLS: Unremarkable as visualized. No inflammatory changes. OTHER FINDINGS: . Changes of bilateral cataract surgery again noted. IMPRESSION: No acute intracranial hemorrhage. Chronic left frontal and left posterior temporoparietal infarcts. There also appears to be small chronic right posterior temporoparietal watershed zone infarct. Scattered chronic bilateral basal nuclei and bilateral cerebellar lacunar type infarct. Moderate to significant generalized volume loss. Mottled appearance of the inner table of the calvarium with scattered lucencies. Clinical correlation recommended.
--- NOTE | 2018-10-11 12:55 | CP.PCM.CON ---
History of Present Illness - History of Present Illness History of Present Illness: s/p ASSET COORDINATOR for sepsis cultures sent IV antibiotics started suspected dource- UTI 83-year-old male with a history of dementia and very poor historian admitted initially in the emergency room because of the altered mental status and confus ion. Admitted for CVA PMH HTN Aortic stenosis afib/flutter , dementia COPD Family history none Allergies no known drug allergy Surgical history gallbladder removal hernia repair stomach correction Social history history of former smoking Review of Systems - Review of Systems Systems not reviewed;Unavailable: Altered Mental Status All systems: reviewed and no additional remarkable complaints except - Constitutional Constitutional: As Per HPI - EENT Eyes: absent: As Per HPI, Blind Spots, Blurred Vision, Change in Vision, Decreased Night Vision, Diplopia, Discharge, Dry Eye, Exophthalmos, Floaters, Irritation, Itchy Eyes, Loss of Peripheral Vision, Pain, Photophobia, Requires Corrective Lenses, Sees Flashes, Spots in Vision, Tunnel Vision, Other Visual Disturbances, Loss of Vision, Other Ears: absent: As Per HPI, Decreased Hearing, Ear Discharge, Ear Pain, Tinnitus, Abnormal Hearing, Disequilibrium, Dizziness, Other Nose/Mouth/Throat: absent: As Per HPI, Epistaxis, Nasal Congestion, Nasal Discharge, Nasal Obstruction, Nasal Trauma, Nose Pain, Post Nasal Drip, Sinus Pain, Sinus Pressure, Bleeding Gums, Change in Voice, Dental Pain, Dry Mouth, Dysphagia, Halitosis, Hoarsness, Lip Swelling, Mouth Lesions, Mouth Pain, Odynophagia, Sore Throat, Throat Swelling, Tongue Swelling, Facial Pain, Neck Pain, Neck Mass, Other - Cardiovascular Cardiovascular: As Per HPI - Respiratory Respiratory: As Per HPI - Gastrointestinal Gastrointestinal: absent: As Per HPI, Abdominal Pain, Belching, Bloating, Change in Bowel Habits, Change in Stool Character, Coffee Ground Emesis, Constipation, Cramping, Diarrhea, Dyspepsia, Dysphagia, Early Satiety, Excessive Flatus, Fecal Incontinence, Heartburn, Hematemesis, Hematochezia, Loose Stools, Melena, [place], Odynophagia, Temesmus, Vomiting, Other - Genitourinary Genitourinary: absent: As Per HPI, Change in Urinary Stream, Difficulty Urinating, Dysuria, Flank Pain, Hematuria, Pyuria, Nocturia, Urinary Incontinence, Urinary Frequency, Urinary Hesitance, Urinary Urgency, Voiding Freq/Small Amts, Freq UTI, Hx Renal/Bladder Calculi, Hx /Renal Surgery, Bladder Distension, Other - Musculoskeletal Musculoskeletal: absent: As Per HPI, Abnormal Gait, Arthralgias, Atrophy, Back Pain, Deformity, Joint Swelling, Limited Range of Motion, Loss of Height, Muscle Cramps, Muscle Weakness, Myalgias, Neck Pain, Numbness, Radiating Pain into Limb, Stiffness, Tingling, Other - Integumentary Integumentary: absent: As Per HPI, Acne, Alopecia, Bleeding Lesions, Change in Hair, Change in Nails, Change in Pigmentation, Changing Lesions, Dry Skin, Erythema, Furuncle, Hirsutism, Lesions, New Lesions, Non-Healing Lesions, Photosensitivity, Pruritus, Rash, Skin Pain, Skin Ulcer, Sores, Striae, Sw elling, Unusual Bruising, Wounds, Jaundice, Other - Neurological Neurological: As Per HPI - Psychiatric Psychiatric: absent: As Per HPI, Abnormal Sleep Pattern, Anhedonia, Anxiety, Auditory Hallucinations, Behavioral Changes, Change in Appetite, Change in Libido, Confusion, Depression, Difficulty Concentrating, Hallucinations, Homicidal Ideation, Hopelessness, Irritability, Memory Loss, Mood Swings, Panic Attacks, Paranoia, Suicidal Ideation, Visual Hallucinations, Tactile Hallucinations, Other - Endocrine Endocrine: absent: As Per HPI, Change in Body Appearance, Change in Libido, Cold Intolorance, Deepening of Voice, Excessive Sweating, Fatigue, Flushing, Heat Intolorance, Increase in Ring/Shoe/Hat Size, Palpitations, Polydipsia, Polyphagia, Polyuria, Other - Hematologic/Lymphatic Hematologic: absent: As Per HPI, Easy Bleeding, Easy Bruising, Lymphadenopathy, Other Past Patient History - Past Medical History & Family History Past Medical History?: No - Past Social History Smoking Status: Unknown If Ever Smoked - CARDIAC Other/Comment: High Triglyceride - MUSCULOSKELETAL/RHEUMATOLOGICAL Hx Falls: Yes - GENITOURINARY/GYNECOLOGICAL Hx Prostate Problems: Yes - PSYCHIATRIC Hx Substance Use: No - SURGICAL HISTORY Hx Cholecystectomy: Yes - ANESTHESIA Hx Anesthesia: Yes Hx Anesthesia Reactions: No Meds Home Medications: Home Medication List Medication Instructions Recorded Confirmed Type Albuterol/Ipratropium [Duoneb 3 3 ml INH RQ6 PRN neb 10/04/18 Rx mg/0.5 mg (3 ml) UD] Apixaban [Eliquis] 2.5 mg PO BID tab 10/04/18 Rx Aspirin [Aspirin Chewable] 81 mg PO DAILY chew 10/04/18 Rx Donepezil [Aricept] 5 mg PO HS tab 10/04/18 Rx Finasteride [Proscar] 5 mg PO DAILY tab 10/04/18 Rx Latanoprost 0.005% Opht [Xalatan 0 ml OU HS bottle 10/04/18 Rx Opht] QUEtiapine [Seroquel] 25 mg PO BID PRN tab 10/04/18 Rx Rosuvastatin Calcium [Crestor] 10 mg PO HS tab 10/04/18 Rx Saccharomyces Boulardi [Florastor] 250 mg PO BID cap 10/04/18 Rx Verapamil [Calan SR Tab] 180 mg PO DAILY tab 10/04/18 Rx guaiFENesin [Mucinex LA] 600 mg PO BID tab 10/04/18 Rx Benzonatate [Tessalon Perles] 100 mg PO TID sgl 10/08/18 Rx Brimonidine 0.2% [Alphagan 0.2% 0 ml OU DAILY bottle 10/08/18 Rx Opht] Insulin Aspart, Recombinant 0 unit SC ACHS unit 10/08/18 Rx [Novolog] Nicotine 21 mg/24 hr [Nicoderm Cq] 1 patch TD DAILY patch 10/08/18 Rx Allergies/Adverse Reactions: Allergies Allergy/AdvReac Type Severity Reaction Status Date / Time No Known Allergies Allergy Verified 09/24/18 18:23 - Medications Medications: Current Medications Acetaminophen (Tylenol 325mg Tab) 650 mg PO Q6 PRN PRN Reason: Fever >100.4 F Last Admin: 10/02/18 00:14 Dose: 650 mg Albuterol/Ipratropium (Duoneb 3 Mg/0.5 Mg (3 Ml) Ud) 3 ml INH RQ6 [facility] Last Admin: 10/11/18 07:45 Dose: Not Given Apixaban (Eliquis) 2.5 mg PO BID [facility] Last Admin: 10/11/18 10:32 Dose: 2.5 mg Aspirin (Aspirin Chewable) 81 mg PO DAILY [facility] Last Admin: 10/11/18 10:35 Dose: 81 mg Benzonatate (Tessalon Perles) 100 mg PO TID [facility] Last Admin: 10/11/18 10:33 Dose: 100 mg Brimonidine Tartrate (Alphagan 0.2% Opht) 0 ml OU DAILY [facility] Last Admin: 10/11/18 10:39 Dose: 1 drop Finasteride (Proscar) 5 mg PO DAILY [facility] Last Admin: 10/11/18 10:33 Dose: 5 mg Guaifenesin (Mucinex La) 600 mg PO BID [facility] Last Admin: 10/11/18 10:32 Dose: 600 mg Cefepime HCl 1 gm/ Dextrose 50 mls @ 100 mls/hr IVPB Q12H [facility]; Protocol Last Admin: 10/11/18 12:31 Dose: 100 mls/hr Vancomycin/Sodium Chloride (Vancomycin 1 Gm/Ns 200 Ml) 1 gm in 200 mls @ 133.333 mls/hr IVPB Q24H [facility]; Protocol Sodium Chloride (Sodium Chloride 0.9%) 1,000 mls @ 80 mls/hr IV .[id number] [facility] Last Admin: 10/11/18 11:00 Dose: 80 mls/hr Insulin Aspart (Novolog) 0 unit SC ACHS [facility]; Protocol Last Admin: 10/11/18 12:14 Dose: Not Given Latanoprost (Xalatan Opht) 0 ml OU HS [facility] Last Admin: 10/10/18 21:46 Dose: 2.5 ml Lorazepam (Ativan) 0.5 mg IVP ONCE PRN PRN Reason: Agitation Last Admin: 10/04/18 00:14 Dose: 0.5 mg Nicotine (Nicoderm Cq) 1 patch TD DAILY [facility] Last Admin: 10/11/18 10:33 Dose: 1 patch Quetiapine Fumarate (Seroquel) 25 mg PO BID PRN PRN Reason: Agitation Last Admin: 10/04/18 20:36 Dose: 25 mg Rosuvastatin Calcium (Crestor) 10 mg PO HS [facility] Last Admin: 10/10/18 22:32 Dose: 10 mg Saccharomyces Boulardii (Florastor) 250 mg PO BID [facility] Last Admin: 10/11/18 10:33 Dose: 250 mg Verapamil HCl (Calan Sr Tab) 180 mg PO DAILY [facility] Last Admin: 10/11/18 10:36 Dose: Not Given Physical Exam - Constitutional Appears: Toxic, No Acute Distress - Head Exam Head Exam: ATRAUMATIC, NORMAL INSPECTION, NORMOCEPHALIC - Eye Exam Eye Exam: PERRL. absent: Scleral icterus - ENT Exam ENT Exam: Mucous Membranes Dry, Normal External Ear Exam, Normal Oropharynx - Neck Exam Neck exam: Negative for: Lymphadenopathy - Respiratory Exam Respiratory Exam: Decreased Breath Sounds, Prolonged Expiratory Phase, Rhonchi - Cardiovascular Exam Cardiovascular Exam: Tachycardia, Irregular Rhythm, +S1, +S2 - GI/Abdominal Exam GI & Abdominal Exam: Diminished Bowel Sounds, Soft. absent: Tenderness - Rectal Exam Rectal Exam: Deferred - Exam Exam: NORMAL INSPECTION - Extremities Exam Extremities exam: Negative for: calf tenderness, pedal edema - Back Exam Back exam: absent: CVA tenderness (L), CVA tenderness (R) - Neurological Exam Neurological exam: Altered, CN II-XII Intact, Motor Sensory Deficit - Psychiatric Exam Psychiatric exam: Depressed - Skin Skin Exam: Dry Results - Vital Signs Recent Vital Signs: Last Vital Signs Temp 98 F 10/11/18 08:30 Pulse 81 10/11/18 08:30 Resp 18 10/11/18 08:30 BP 110/71 10/11/18 08:30 Pulse Ox 94 L 10/11/18 08:30 - Labs Result Diagrams: 10/11/18 10:14 10/11/18 10:14 Labs: Laboratory Results - last 24 hr 10/11/18 10/11/18 10/11/18 06:58 09:59 10:14 WBC 26.3 H D RBC 3.93 L Hgb 10.7 L D Hct 33.4 L MCV 85.0 MCH 27.2 MCHC 32.0 L RDW 17.3 H Plt Count 482 H MPV 6.9 L Neut % (Auto) 89.9 H Lymph % (Auto) 5.0 L [place] % (Auto) 4.6 Eos % (Auto) 0.1 Baso % (Auto) 0.4 Neut # (Auto) 23.6 H Lymph # (Auto) 1.3 [place] # (Auto) 1.2 H Eos # (Auto) 0.0 Baso # (Auto) 0.1 Neutrophils % (Manual) 89 H Band Neutrophils % 2 Lymphocytes % (Manual) 5 L Monocytes % (Manual) 4 Platelet Estimate Slightly increased H Polychromasia Slight Hypochromasia (manual) Slight Anisocytosis (manual) Slight Sodium Potassium Chloride Carbon Dioxide Anion Gap BUN Creatinine Est GFR ( Amer) Est GFR (Non-Af Amer) POC Glucose (mg/dL) 106 184 H Random Glucose Calcium Phosphorus Magnesium Total Bilirubin AST ALT Alkaline Phosphatase Total Protein Albumin Globulin Albumin/Globulin Ratio 10/11/18 10:14 WBC RBC Hgb Hct MCV MCH MCHC RDW Plt Count MPV Neut % (Auto) Lymph % (Auto) [place] % (Auto) Eos % (Auto) Baso % (Auto) Neut # (Auto) Lymph # (Auto) [place] # (Auto) Eos # (Auto) Baso # (Auto) Neutrophils % (Manual) Band Neutrophils % Lymphocytes % (Manual) Monocytes % (Manual) Platelet Estimate Polychromasia Hypochromasia (manual) Anisocytosis (manual) Sodium 139 Potassium 4.6 Chloride 103 Carbon Dioxide 31 H Anion Gap 9 L BUN 37 H Creatinine 1.3 Est GFR ( Amer) > 60 Est GFR (Non-Af Amer) 53 POC Glucose (mg/dL) Random Glucose 155 H Calcium 8.9 Phosphorus 4.4 Magnesium 2.3 Total Bilirubin 0.6 AST 35 ALT 19 L Alkaline Phosphatase 82 Total Protein 6.9 Albumin 3.3 L Globulin 3.7 Albumin/Globulin Ratio 0.9 L Assessment & Plan (1) Sepsis Status: Acute (2) CVA (cerebral vascular accident) Status: Acute - Assessment and Plan (Free Text) Assessment: 83-year-old male with a history of dementia a fib aortic stenosis admitted initially in the emergency room because of the altered mental status and confusion. Admitted for CVA Now with possible sepsis - possible UTI vs pneumonia cultures sent IV antibiotics in progress Prognosis guarded
[2018-10-11 13:03] LABS: INR 1.4; PROTHROMBIN TIME 14.8 SECONDS (9.7-12.2)
[2018-10-11] MEDS: Vancomycin 1 gm/NS 200 ml 1 GM/200 ML BAG IVPB SCH (13:31)
[2018-10-11] MEDS: Latanoprost 2.5 ml Opht Soln OU SCH (21:48)
--- NOTE | 2018-10-11 23:49 | CP.PCM.PN ---
Subjective - Date & Time of Evaluation Date of Evaluation: 10/11/18 Time of Evaluation: 22:43 - Subjective Subjective: Patient seen and evaluated No new cardiac events noted Conservative medical management Physical examination - Constitutional Appears: Non-toxic, No Acute Distress - Head Exam Head Exam: ATRAUMATIC, NORMOCEPHALIC - ENT Exam ENT Exam: Mucous Membranes Moist - Respiratory Exam Respiratory Exam: Rales, Rhonchi - Cardiovascular Exam Cardiovascular Exam: REGULAR RHYTHM, Murmur - GI/Abdominal Exam GI & Abdominal Exam: Soft, Normal Bowel Sounds. absent: Distended, Firm, Guardi ng, Rigid, Tenderness, Organomegaly - Extremities Exam Extremities Exam: absent: Pedal Edema, Tenderness - Neurological Exam Neurological Exam: Alert, Awake - Psychiatric Exam Psychiatric exam: Normal Affect, Normal Mood - Skin Skin Exam: Dry, Intact, Normal Color, Warm Assessment and Plan - Assessment and Plan (Free Text) Assessment: Patient is a 83 year old M who was admitted for Altered mental status, found to be acute on chronic stroke with symptomatic severe aortic stenosis Acute on chronic CVA -Continue ASA 81mg PO daily -Plavix 75 mg PO daily discontinued 2/2 risk of bleeding -Continue Crestor 10mg PO HS -Echo w/ bubble study showed no PFO, severe , and diastolic dysfunction, LVEF 65-70%; please refer to full report -Patient cleared from neurological standpoint as per neuro Atrial fibrillation, Atrial flutter -On Verapamil 180mg PO daily -On Eliquis 2.5mg PO BID, Aspirin Severe Aortic Stenosis -On echo, severe valvular aortic stenosis, aortic valve area 0.76cm2 -Recommend cardiac cath and TAVR but family refusing at this time and want only medical management NSTEMI; resolved -Continue Aspirin, Eliquis, Crestor -Troponins 0.1230, 0.1230, 0.0940 -Patient and family refusing cardiac cath at this time -Continue medical management Pneumonia -Completed course of Abx -Continue Florastor 250mg PO BID -Continue Mucinex 600mg PO BID, Duonebs 3ml INH RQ6H PRN shortness of breath -Tessalon Pearles 100mg PO TID added for cough suppression Suicidal Ideation; resolved -Patient placed on 1:1 for safety -Psych on consult, Dr Brown, help appreciated Hx of Dementia -Donepizil 5mg daily -Continue Seroquel 25mg PO BID prn for agitation -Dr. Brown; psychiatry consulted Hx of BPH -Continue Finasteride 5mg PO daily Objective - Vital Signs/Intake and Output Vital Signs (last 24 hours): Temp Pulse Resp BP Pulse Ox 97.6 F 78 18 86/52 L 96 10/11/18 16:00 10/11/18 16:00 10/11/18 16:00 10/11/18 16:00 10/11/18 16:00 Intake and Output: 10/11/18 10/12/18 18:59 06:59 Intake Total 880 Balance 880 - Medications Medications: Current Medications Acetaminophen (Tylenol 325mg Tab) 650 mg PO Q6 PRN PRN Reason: Fever >100.4 F Last Admin: 10/02/18 00:14 Dose: 650 mg Albuterol/Ipratropium (Duoneb 3 Mg/0.5 Mg (3 Ml) Ud) 3 ml INH RQ6 [facility] Last Admin: 10/11/18 21:10 Dose: 3 ml Apixaban (Eliquis) 2.5 mg PO BID [facility] Last Admin: 10/11/18 18:02 Dose: 2.5 mg Aspirin (Aspirin Chewable) 81 mg PO DAILY [facility] Last Admin: 10/11/18 10:35 Dose: 81 mg Benzonatate (Tessalon Perles) 100 mg PO TID [facility] Last Admin: 10/11/18 21:47 Dose: 100 mg Brimonidine Tartrate (Alphagan 0.2% Opht) 0 ml OU DAILY [facility] Last Admin: 10/11/18 10:39 Dose: 1 drop Finasteride (Proscar) 5 mg PO DAILY [facility] Last Admin: 10/11/18 10:33 Dose: 5 mg Guaifenesin (Mucinex La) 600 mg PO BID [facility] Last Admin: 10/11/18 18:05 Dose: 600 mg Cefepime HCl 1 gm/ Dextrose 50 mls @ 100 mls/hr IVPB Q12H [facility]; Protocol Last Admin: 10/11/18 12:31 Dose: 100 mls/hr Vancomycin/Sodium Chloride (Vancomycin 1 Gm/Ns 200 Ml) 1 gm in 200 mls @ 133.333 mls/hr IVPB Q24H [facility]; Protocol Last Admin: 10/11/18 13:31 Dose: 133.333 mls/hr Sodium Chloride (Sodium Chloride 0.9%) 1,000 mls @ 80 mls/hr IV .[id number] [facility] Last Admin: 10/11/18 11:00 Dose: 80 mls/hr Insulin Aspart (Novolog) 0 unit SC ACHS [facility]; Protocol Last Admin: 10/11/18 21:48 Dose: Not Given Latanoprost (Xalatan Opht) 0 ml OU HS [facility] Last Admin: 10/11/18 21:48 Dose: 1 ml Lorazepam (Ativan) 0.5 mg IVP ONCE PRN PRN Reason: Agitation Last Admin: 10/04/18 00:14 Dose: 0.5 mg Nicotine (Nicoderm Cq) 1 patch TD DAILY [facility] Last Admin: 10/11/18 10:33 Dose: 1 patch Quetiapine Fumarate (Seroquel) 25 mg PO BID PRN PRN Reason: Agitation Last Admin: 10/04/18 20:36 Dose: 25 mg Rosuvastatin Calcium (Crestor) 10 mg PO HS [facility] Last Admin: 10/11/18 21:46 Dose: 10 mg Saccharomyces Boulardii (Florastor) 250 mg PO BID [facility] Last Admin: 10/11/18 18:05 Dose: 250 mg Verapamil HCl (Calan Sr Tab) 180 mg PO DAILY [facility] Last Admin: 10/11/18 10:36 Dose: Not Given - Labs Labs: 10/11/18 10:14 10/11/18 10:14 PT 14.8 SECONDS (9.7-12.2) H 10/11/18 12:37 INR 1.4 10/11/18 12:37 APTT 33 SECONDS (21-34) 10/11/18 12:37
[2018-10-12] MEDS: Albuterol-Ipratrop 3 mg / 0.5 (3 ml) UD INH SCH ×4 (02:00→19:45)
[2018-10-12 08:22] LABS: BASO # 0.1 K/uL (0.0-0.2); BASO % 0.6 % (0.0-2.0); EOS # 0.2 K/uL (0.0-0.7); EOS % 1.1 % (0.0-4.0); HEMOGLOBIN 9.9 g/dL (12.0-18.0); LYMPH # 1.2 K/uL (1.0-4.3); LYMPH % 8.3 % (20.0-40.0); MEAN CELL VOLUME 84.3 fL (80.0-94.0); MEAN CORPUSCULAR HEMOGLOBIN 27.4 pg (27.0-31.0); MEAN CORPUSCULAR HGB CONC 32.5 g/dL (33.0-37.0); MEAN PLATELET VOLUME 7.2 fL (7.2-11.7); MONO % 6.6 % (0.0-10.0); NEUT # 12.2 K/uL (1.8-7.0); NEUT % 83.4 % (50.0-75.0); PLATELET COUNT 421 K/uL (130-400); RBC 3.61 Mil/uL (4.40-5.90); RED CELL DISTRIBUTION WIDTH 17.3 % (11.5-14.5); WHITE BLOOD COUNT 14.6 K/uL (4.8-10.8)
[2018-10-12] MEDS: (Novolog) Insulin Aspart, Recombinant 100 u/ml 10 ml vial SC SCH ×4 (08:43→22:07)
[2018-10-12 08:56] LABS: ALB/GLOB RATIO 0.8 (1.0-2.1); ALBUMIN 2.8 g/dL (3.5-5.0); ALT/SGPT 22 U/L (21-72); AST/SGOT 28 U/L (17-59); BLOOD UREA NITROGEN 37 mg/dL (9-20); CALCIUM 8.5 mg/dl (8.6-10.4); GFR NON-AFRICAN AMERICAN > 60
[2018-10-12] MEDS: Saccharomyces Boulardi 250 mg Cap PO SCH ×2 (10:12→20:01)
[2018-10-12] MEDS: guaiFENesin 600 mg ER Tab PO SCH ×2 (10:12→20:01)
[2018-10-12 10:27] LABS: LYMPHOCYTE 8 % (20-40); MONOCYTE 5 % (0-10); NEUTROPHIL 87 % (50-75); PLATELET ESTIMATE NORMAL (NORMAL); TOTAL CELLS COUNTED 100
[2018-10-12 10:28] LABS: ANISOCYTOSIS SLIGHT; HYPOCHROMIC SLIGHT; POIKILOCYTOSIS SLIGHT
--- NOTE | 2018-10-12 10:28 | CP.PCM.PN ---
Subjective - Date & Time of Evaluation Date of Evaluation: 10/12/18 Time of Evaluation: 10:31 - Subjective Subjective: Medicine Note for Dr. Norris Patient was seen and examined at bedside in no acute distress. Patient is alert to person, place, not time. Patient denied any ROS. Objective - Vital Signs/Intake and Output Vital Signs (last 24 hours): Temp Pulse Resp BP Pulse Ox 97.2 F L 108 H 20 96/64 L 99 10/12/18 07:00 10/12/18 08:13 10/12/18 07:00 10/12/18 07:00 10/12/18 07:00 Intake and Output: 10/12/18 10/12/18 06:59 18:59 Intake Total 400 Balance 400 - Medications Medications: Current Medications Acetaminophen (Tylenol 325mg Tab) 650 mg PO Q6 PRN PRN Reason: Fever >100.4 F Last Admin: 10/02/18 00:14 Dose: 650 mg Albuterol/Ipratropium (Duoneb 3 Mg/0.5 Mg (3 Ml) Ud) 3 ml INH RQ6 [facility] Last Admin: 10/12/18 07:50 Dose: Not Given Apixaban (Eliquis) 2.5 mg PO BID [facility] Last Admin: 10/12/18 10:12 Dose: 2.5 mg Aspirin (Aspirin Chewable) 81 mg PO DAILY [facility] Last Admin: 10/12/18 10:12 Dose: 81 mg Benzonatate (Tessalon Perles) 100 mg PO TID [facility] Last Admin: 10/12/18 10:12 Dose: 100 mg Brimonidine Tartrate (Alphagan 0.2% Opht) 0 ml OU DAILY [facility] Last Admin: 10/11/18 10:39 Dose: 1 drop Finasteride (Proscar) 5 mg PO DAILY [facility] Last Admin: 10/12/18 10:12 Dose: 5 mg Guaifenesin (Mucinex La) 600 mg PO BID [facility] Last Admin: 10/12/18 10:12 Dose: 600 mg Cefepime HCl 1 gm/ Dextrose 50 mls @ 100 mls/hr IVPB Q12H [facility]; Protocol Last Admin: 10/12/18 00:14 Dose: 100 mls/hr Vancomycin/Sodium Chloride (Vancomycin 1 Gm/Ns 200 Ml) 1 gm in 200 mls @ 133.333 mls/hr IVPB Q24H [facility]; Protocol Last Admin: 10/11/18 13:31 Dose: 133.333 mls/hr Sodium Chloride (Sodium Chloride 0.9%) 1,000 mls @ 80 mls/hr IV .[id number] [facility] Last Admin: 10/11/18 11:00 Dose: 80 mls/hr Insulin Aspart (Novolog) 0 unit SC [facility]; Protocol Last Admin: 10/12/18 08:43 Dose: Not Given Latanoprost (Xalatan Opht) 0 ml OU HS [facility] Last Admin: 10/11/18 21:48 Dose: 1 ml Lorazepam (Ativan) 0.5 mg IVP ONCE PRN PRN Reason: Agitation Last Admin: 10/04/18 00:14 Dose: 0.5 mg Nicotine (Nicoderm Cq) 1 patch TD DAILY [facility] Last Admin: 10/12/18 10:12 Dose: 1 patch Quetiapine Fumarate (Seroquel) 25 mg PO BID PRN PRN Reason: Agitation Last Admin: 10/04/18 20:36 Dose: 25 mg Rosuvastatin Calcium (Crestor) 10 mg PO HS [facility] Last Admin: 10/11/18 21:46 Dose: 10 mg Saccharomyces Boulardii (Florastor) 250 mg PO BID [facility] Last Admin: 10/12/18 10:12 Dose: 250 mg Verapamil HCl (Calan Sr Tab) 180 mg PO DAILY [facility] Last Admin: 10/11/18 10:36 Dose: Not Given - Labs Labs: 10/12/18 08:00 10/12/18 08:00 PT 14.8 SECONDS (9.7-12.2) H 10/11/18 12:37 INR 1.4 10/11/18 12:37 APTT 33 SECONDS (21-34) 10/11/18 12:37 - Constitutional Appears: No Acute Distress, Cachectic, Chronically Ill - Head Exam Head Exam: NORMAL INSPECTION, NORMOCEPHALIC - Eye Exam Eye Exam: EOMI, Normal appearance, PERRL Pupil Exam: NORMAL ACCOMODATION - ENT Exam ENT Exam: Mucous Membranes Dry - Respiratory Exam Respiratory Exam: NORMAL BREATHING PATTERN. absent: Decreased Breath Sounds, Rales, Rhonchi, Wheezes - Cardiovascular Exam Cardiovascular Exam: Irregular Rhythm, +S1, +S2, Murmur - GI/Abdominal Exam GI & Abdominal Exam: Soft, Normal Bowel Sounds. absent: Distended, Tenderness - Extremities Exam Extremities Exam: Normal Inspection. absent: Pedal Edema, Tenderness - Neurological Exam Neurological Exam: Alert, Awake - Skin Skin Exam: Dry, Intact, Normal Color, Warm Assessment and Plan - Assessment and Plan (Free Text) Assessment: This is an 83 year old male who was admitted for AMS, acute on chronic stroke, septic 2/2 to PNA and UTI?, with symptomatic severe aortic stenosis Plan: Urosepsis? Prostatitis? - ENTRY WRITER called for lethargy, hypotensive; WBC elevated at 26.3 - Hx of multiple admissions for urosepsis; last [place] was [place] [facility] [place] Chest xray s/p bolus: mild hyperinflation suggestion chronic manifestation of COPD w/chronic interstitial changes and/or fibrosis b/l bases; chronic bibasilar atelectasis; b/l effusions w/ silhouetting bother posterior sulci - Urine and blood cx ordered (urine and blood cultures from 10/08/18 were negative) - Lactic acid: 1.6 - Procal: 2.68 - Started Vanco 1gm IV Q24h (started on 10/11/18) - Started Cefepime 1gm IV Q12h (started on 10/11/18) - Placed on telemetry, will continue to monitor - ID consulted, Dr. Pastrana; help appreciated. Hypotension - Likely secondary to urosepsis and dehydration - Held verapimil - Gave 250cc NS bolus, followed by NS@80mls/hr Acute on chronic CVA - Head CT ordered (10/11/18) due to lethargy, change in MS: no acute changes; chronic left frontal and left posterior temporoparietal infarct; small chronic right posterior tempororparietal watershed zone infarct; scattered chronic b/l basal nuclei and b/l basal nuclei and b'l cerebellar lacunar type infarct; moderate to significant generalized volume loss; mottled appearance of the inner table of calvarium w/scattered lucencies. - Continue ASA 81mg PO daily, Crestor 10mg PO HS - Plavix 75 mg PO daily discontinued 2/2 risk of bleeding - Echo w/ bubble study showed no PFO, severe , and diastolic dysfunction, LVEF 65-70%; please refer to full report - Patient unable to complete MRA neck - Neurology on consult, Dr Manrique, help appreciated - Patient cleared from neurological standpoint as per neuro - Physical therapy ordered Imaging: * CT head: showed multiple old infarcts; no acute infarct seen; please refer to full report * Brain MRI:There are 2 tiny focal areas of mild restricted diffusion, both of which are located in the posterior temporoparietal cortices left slightly larger and the slightly more anterior in location on the right side. Note that the both of these foci are adjacent to, abutting areas of larger chronic infarcts left larger than right... Both of these foci could represent small acute/subacute areas of reversible ischemia (TIAs) or tiny acute/subacute infarcts. Note that a small components of shine through artifact cannot be excluded. No additional focal areas of abnormal restricted diffusion identified. Chronic confluent white matter ischemic changes with more discrete bifrontal infarcts left larger than right. There also chronic bilateral cerebellar infarcts * Echocardiogram: EF 65-70%, diastolic dysfunction, severe valvular aortic suzi nosis, aortic valve area 0.76cm2, borderline MVP * MRA Head: no occlusion or significant stenosis of [place] of [place] arterial anatomy. Mildly hypoplastic left vertebral artery w/ right dominant verte brobasilar circulation Atrial fibrillation, Atrial flutter - Patient was on cardizem drip--> Drip discontinued - On Verapamil 180mg PO daily- held on 10/11/18 due to hypotension, lethargy - On Eliquis 2.5mg PO BID Severe Aortic Stenosis - Dr. Lujan; cardiology; thank you for your help - On echo, severe valvular aortic stenosis, aortic valve area 0.76cm2 - Per vending machine collector, patient possibly needs cardiac cath and TAVR; however, patient and family refuse at this time. - Continue medical management NSTEMI; resolved - Dr. Lujan; cardiology; thank you for your help - EKG showed Nonspecific t-wave abnormality - Continue therapeutic lovenox, plavix daily - Troponins 0.1230, 0.1230, 0.0940 - Per vending machine collector, patient possibly needs cardiac cath and TAVR; however, patient and family refuse at this time. Pneumonia - CXR showed consolidation in right middle lobes and right lower lobe, patchy infiltrate in left lower lobe (see full report) - CT chest: bilateral lower lobe consolidation, adjacent interstitial changes. Prominent mediastinal lymph nodes. Ectasia of ascending thoracic aorta 3.7cm (see full report) - Antibiotics: Avelox 400mg PO daily x 5 days (last dose given on 10/08/18) - Zosyn 3.375 Q8H (active from 09/25/18-10/04/18) and Vancomycin 1g Q24H (active from 09/25/18-10/03/18) - Continue Florastor 250mg PO BID - Continue Mucinex 600mg PO BID, Duonebs 3ml INH RQ6H PRN shortness of breath - Tessalon Pearles 100mg PO TID for cough suppression Suicidal Ideation; resolved - Psych on consult, Dr Brown, help appreciated Hx of Dementia - Donepizil 5mg daily - Continue Seroquel 25mg PO BID prn for agitation - Dr. Brown; psychiatry; thank you for your help Hx of BPH - Continue Finasteride 5mg PO daily Hx of bacteremia; treated at [facility] [place] 3[place] ago - Blood cultures (09/24/18): no growth after 5 days Hyperglycemia - Hemoglobin A1c 5.1 Prophylactic Measures - Eliquis 2.5 mg PO BID - hx of falls; fall precautions - PT/OT eval Disposition: Pending repeat cultures to determine antibiotics and length of course. Patient is for discharge to [facility] when medically stable. Case discussed with Dr. Norris, Laura Baron DO, PGY2
[2018-10-12] MEDS: Brimonidine 0.2% Opth Sol (5ml) OU SCH (10:44)
--- NOTE | 2018-10-12 12:11 | CP.PCM.PN ---
Subjective - Date & Time of Evaluation Date of Evaluation: 10/12/18 Time of Evaluation: 09:00 - Subjective Subjective: awake and alert today no ever wbc coming down vomiting + Objective - Vital Signs/Intake and Output Vital Signs (last 24 hours): Temp Pulse Resp BP Pulse Ox 97.2 F L 108 H 20 96/64 L 99 10/12/18 07:00 10/12/18 08:13 10/12/18 07:00 10/12/18 07:00 10/12/18 07:00 Intake and Output: 10/12/18 10/12/18 06:59 18:59 Intake Total 400 Balance 400 - Medications Medications: Current Medications Acetaminophen (Tylenol 325mg Tab) 650 mg PO Q6 PRN PRN Reason: Fever >100.4 F Last Admin: 10/02/18 00:14 Dose: 650 mg Albuterol/Ipratropium (Duoneb 3 Mg/0.5 Mg (3 Ml) Ud) 3 ml INH RQ6 [facility] Last Admin: 10/12/18 07:50 Dose: Not Given Apixaban (Eliquis) 2.5 mg PO BID [facility] Last Admin: 10/12/18 10:12 Dose: 2.5 mg Aspirin (Aspirin Chewable) 81 mg PO DAILY [facility] Last Admin: 10/12/18 10:12 Dose: 81 mg Benzonatate (Tessalon Perles) 100 mg PO TID [facility] Last Admin: 10/12/18 10:12 Dose: 100 mg Brimonidine Tartrate (Alphagan 0.2% Opht) 0 ml OU DAILY [facility] Last Admin: 10/12/18 10:44 Dose: Not Given Finasteride (Proscar) 5 mg PO DAILY [facility] Last Admin: 10/12/18 10:12 Dose: 5 mg Guaifenesin (Mucinex La) 600 mg PO BID [facility] Last Admin: 10/12/18 10:12 Dose: 600 mg Cefepime HCl 1 gm/ Dextrose 50 mls @ 100 mls/hr IVPB Q12H [facility]; Protocol Last Admin: 10/12/18 11:24 Dose: 100 mls/hr Vancomycin/Sodium Chloride (Vancomycin 1 Gm/Ns 200 Ml) 1 gm in 200 mls @ 133.333 mls/hr IVPB Q24H [facility]; Protocol Last Admin: 10/11/18 13:31 Dose: 133.333 mls/hr Insulin Aspart (Novolog) 0 unit SC ACHS [facility]; Protocol Last Admin: 10/12/18 08:43 Dose: Not Given Latanoprost (Xalatan Opht) 0 ml OU HS [facility] Last Admin: 10/11/18 21:48 Dose: 1 ml Lorazepam (Ativan) 0.5 mg IVP ONCE PRN PRN Reason: Agitation Last Admin: 10/04/18 00:14 Dose: 0.5 mg Nicotine (Nicoderm Cq) 1 patch TD DAILY [facility] Last Admin: 10/12/18 10:12 Dose: 1 patch Quetiapine Fumarate (Seroquel) 25 mg PO BID PRN PRN Reason: Agitation Last Admin: 10/04/18 20:36 Dose: 25 mg Rosuvastatin Calcium (Crestor) 10 mg PO HS [facility] Last Admin: 10/11/18 21:46 Dose: 10 mg Saccharomyces Boulardii (Florastor) 250 mg PO BID [facility] Last Admin: 10/12/18 10:12 Dose: 250 mg Verapamil HCl (Calan Sr Tab) 180 mg PO DAILY [facility] Last Admin: 10/11/18 10:36 Dose: Not Given - Labs Labs: 10/12/18 08:00 10/12/18 08:00 PT 14.8 SECONDS (9.7-12.2) H 10/11/18 12:37 INR 1.4 10/11/18 12:37 APTT 33 SECONDS (21-34) 10/11/18 12:37 - Constitutional Appears: Non-toxic, Chronically Ill - Head Exam Head Exam: NORMOCEPHALIC - Eye Exam Eye Exam: absent: Scleral icterus - ENT Exam ENT Exam: Mucous Membranes Dry - Neck Exam Neck Exam: absent: Lymphadenopathy - Respiratory Exam Respiratory Exam: Decreased Breath Sounds - Cardiovascular Exam Cardiovascular Exam: REGULAR RHYTHM - GI/Abdominal Exam GI & Abdominal Exam: Distended, Soft - Rectal Exam Rectal Exam: Deferred - Exam Exam: NORMAL INSPECTION - Extremities Exam Extremities Exam: absent: Pedal Edema - Back Exam Back Exam: absent: CVA tenderness (L), CVA tenderness (R) Assessment and Plan (1) Sepsis Status: Acute (2) CVA (cerebral vascular accident) Status: Acute - Assessment and Plan (Free Text) Assessment: recurrent sepsis ? source Plan: consider CT Abd/Pelvis, GI eval await cultures cont iv antibiotics swallowing re-eval
[2018-10-12] MEDS: Vancomycin 1 gm/NS 200 ml 1 GM/200 ML BAG IVPB SCH (13:18)
--- NOTE | 2018-10-12 14:16 | RAD ---
Date of service: 10/12/2018 HISTORY: severe ; s/p CLINICAL COUNSELOR for hypotension; concern for COMPARISON: 10/11/2018 and 09/24/2018 FINDINGS: LUNGS: Bilateral hyperaeration re-noted. COPD inferred The abnormal diffuse interstitial lung markings are similar and most accentuated in each mid to lower lung zone. A nodular opacity in the right mid to lower lung zone is similar to 10/11/2018 but is difficult to see with earlier exams. Infiltrate here is 1 consideration. There is vague homogeneous opacity airspace in the more cephalad right mid lung zone not seen on the 10/11/2018 study interval pleural parenchymal pathology here inferred as inflammatory is suspect. The prior left perihilar nodular opacity on 10/11/2018 is no longer seen. Residual infiltrate in the right mid lung zone and also cephalad to this projecting over the right 7th rib opacity confluence in the mid to lower lung zones. PLEURA: Small left pleural effusion is possible. No more significant appearing pleural effusion suggested. No pneumothorax apparent. CARDIOVASCULAR: There is presence of aortic atherosclerotic calcification on x-ray. Mild cardiomegaly-similar a chronic concomitant mild pulmonary venous congestion is suspect. OSSEOUS STRUCTURES: Thoraco lumbar level dextroscoliosis. Diffuse thoraco lumbar spondylosis. VISUALIZED UPPER ABDOMEN: Normal. OTHER FINDINGS: None. IMPRESSION: Patchy right-sided nodular infiltrates suspect. One of 2 in the right has increased since the prior 10/11/2018 study. The prior left perihilar nodular opacity has cleared. Background chronic interstitial lung disease inferred-similar. Concomitant mild chronic pulmonary venous congestion possible. Cardiomegaly-similar. Other findings as above.
[2018-10-12] MEDS ORDERED: Metoprolol 1 mg/ml Inj IVP ONE ×2 (17:58→18:20)
--- NOTE | 2018-10-12 18:11 | CP.PCM.PN ---
Subjective - Date & Time of Evaluation Date of Evaluation: 10/12/18 Time of Evaluation: 18:08 - Subjective Subjective: PGY3 Call Note Patient found to be in afibb RVR at 6:00pm, HR up to 170bpm Ordered EKG, MARCELINO Will give 5mg IV Lopressor if does not break will give 5mg more in 20 min 6:20pm If does not break will use verapamil; patient already on 180mg XR Verapamil; can increase would consider cardizem drip if cannot control rate Patient otherwise resting comfortably in bed, responding in kazakh, in no acute distress Will continue to follow Alirio Dunbar PGY3 Objective - Vital Signs/Intake and Output Vital Signs (last 24 hours): Temp Pulse Resp BP Pulse Ox 97.2 F L 108 H 20 125/69 99 10/12/18 07:00 10/12/18 08:13 10/12/18 07:00 10/12/18 16:05 10/12/18 07:00 Intake and Output: 10/12/18 10/12/18 06:59 18:59 Intake Total 400 550 Balance 400 550 - Medications Medications: Current Medications Acetaminophen (Tylenol 325mg Tab) 650 mg PO Q6 PRN PRN Reason: Fever >100.4 F Last Admin: 10/02/18 00:14 Dose: 650 mg Albuterol/Ipratropium (Duoneb 3 Mg/0.5 Mg (3 Ml) Ud) 3 ml INH RQ6 [facility] Last Admin: 10/12/18 13:50 Dose: 3 ml Apixaban (Eliquis) 2.5 mg PO BID [facility] Last Admin: 10/12/18 10:12 Dose: 2.5 mg Aspirin (Aspirin Chewable) 81 mg PO DAILY [facility] Last Admin: 10/12/18 10:12 Dose: 81 mg Benzonatate (Tessalon Perles) 100 mg PO TID [facility] Last Admin: 10/12/18 13:40 Dose: 100 mg Brimonidine Tartrate (Alphagan 0.2% Opht) 0 ml OU DAILY [facility] Last Admin: 10/12/18 10:44 Dose: Not Given Finasteride (Proscar) 5 mg PO DAILY [facility] Last Admin: 10/12/18 10:12 Dose: 5 mg Guaifenesin (Mucinex La) 600 mg PO BID [facility] Last Admin: 10/12/18 10:12 Dose: 600 mg Cefepime HCl 1 gm/ Dextrose 50 mls @ 100 mls/hr IVPB Q12H [facility]; Protocol Last Admin: 10/12/18 11:24 Dose: 100 mls/hr Vancomycin/Sodium Chloride (Vancomycin 1 Gm/Ns 200 Ml) 1 gm in 200 mls @ 133.333 mls/hr IVPB Q24H [facility]; Protocol Last Admin: 10/12/18 13:18 Dose: 133.333 mls/hr Insulin Aspart (Novolog) 0 unit SC ACHS [facility]; Protocol Last Admin: 10/12/18 13:40 Dose: Not Given Latanoprost (Xalatan Opht) 0 ml OU HS [facility] Last Admin: 10/11/18 21:48 Dose: 1 ml Lorazepam (Ativan) 0.5 mg IVP ONCE PRN PRN Reason: Agitation Last Admin: 10/04/18 00:14 Dose: 0.5 mg Metoprolol Tartrate (Lopressor) 5 mg IVP ONCE ONE Stop: 10/12/18 18:21 Nicotine (Nicoderm Cq) 1 patch TD DAILY [facility] Last Admin: 10/12/18 10:12 Dose: 1 patch Quetiapine Fumarate (Seroquel) 25 mg PO BID PRN PRN Reason: Agitation Last Admin: 10/04/18 20:36 Dose: 25 mg Rosuvastatin Calcium (Crestor) 10 mg PO HS [facility] Last Admin: 10/11/18 21:46 Dose: 10 mg Saccharomyces Boulardii (Florastor) 250 mg PO BID [facility] Last Admin: 10/12/18 10:12 Dose: 250 mg Verapamil HCl (Calan Sr Tab) 180 mg PO DAILY [facility] Last Admin: 10/11/18 10:36 Dose: Not Given - Labs Labs: 10/12/18 08:00 10/12/18 08:00 PT 14.8 SECONDS (9.7-12.2) H 10/11/18 12:37 INR 1.4 10/11/18 12:37 APTT 33 SECONDS (21-34) 10/11/18 12:37
[2018-10-12 19:28] LABS: CK-MB 0.89 ng/mL (0.0-3.38); TROPONIN I 0.025 ng/mL (0.00-0.120)
[2018-10-12] MEDS ORDERED: Verapamil 180 mg ER Tab PO SCH (20:30)
[2018-10-12] MEDS: Latanoprost 2.5 ml Opht Soln OU SCH (22:07)
[2018-10-13] MEDS: Albuterol-Ipratrop 3 mg / 0.5 (3 ml) UD INH SCH ×4 (01:25→20:52)
--- NOTE | 2018-10-13 05:43 | CP.PCM.PN ---
Subjective - Date & Time of Evaluation Date of Evaluation: 10/12/18 Time of Evaluation: 15:20 - Subjective Subjective: Patient seen and evaluated A Fib Severe CAD Family wants conservative management only B blockers Eliquis 2.5 mg po bid ASA 81 daily Will follow Physical examination - Constitutional Appears: Non-toxic, No Acute Distress - Head Exam Head Exam: ATRAUMATIC, NORMOCEPHALIC - ENT Exam ENT Exam: Mucous Membranes Moist - Respiratory Exam Respiratory Exam: Rales, Rhonchi - Cardiovascular Exam Cardiovascular Exam: REGULAR RHYTHM, Murmur - GI/Abdominal Exam GI & Abdominal Exam: Soft, Normal Bowel Sounds. absent: Distended, Firm, Guarding, Rigid, Tenderness, Organomegaly - Extremities Exam Extremities Exam: absent: Pedal Edema, Tenderness - Neurological Exam Neurological Exam: Alert, Awake - Psychiatric Exam Psychiatric exam: Normal Affect, Normal Mood - Skin Skin Exam: Dry, Intact, Normal Color, Warm Assessment and Plan - Assessment and Plan (Free Text) Assessment: Patient is a 83 year old M who was admitted for Altered mental status, found to be acute on chronic stroke with symptomatic severe aortic stenosis Acute on chronic CVA -Continue ASA 81mg PO daily -Plavix 75 mg PO daily discontinued 2/2 risk of bleeding -Continue Crestor 10mg PO HS -Echo w/ bubble study showed no PFO, severe , and diastolic dysfunction, LVEF 65-70%; please refer to full report -Patient cleared from neurological standpoint as per neuro Atrial fibrillation, Atrial flutter -On Verapamil 180mg PO daily -On Eliquis 2.5mg PO BID, Aspirin Severe Aortic Stenosis -On echo, severe valvular aortic stenosis, aortic valve area 0.76cm2 -Recommend cardiac cath and TAVR but family refusing at this time and want only medical management NSTEMI; resolved -Continue Aspirin, Eliquis, Crestor -Troponins 0.1230, 0.1230, 0.0940 -Patient and family refusing cardiac cath at this time -Continue medical management Pneumonia -Completed course of Abx -Continue Florastor 250mg PO BID -Continue Mucinex 600mg PO BID, Duonebs 3ml INH RQ6H PRN shortness of breath -Tessalon Pearles 100mg PO TID added for cough suppression Suicidal Ideation; resolved -Patient placed on 1:1 for safety -Psych on consult, Dr Brown, help appreciated Hx of Dementia -Donepizil 5mg daily -Continue Seroquel 25mg PO BID prn for agitation -Dr. Brown; psychiatry consulted Hx of BPH -Continue Finasteride 5mg PO daily Objective - Vital Signs/Intake and Output Vital Signs (last 24 hours): Temp Pulse Resp BP Pulse Ox 98 F 72 20 99/65 L 98 10/12/18 23:10 10/13/18 03:42 10/12/18 23:10 10/12/18 23:10 10/12/18 23:10 Intake and Output: 10/12/18 10/13/18 18:59 06:59 Intake Total 550 Balance 550 - Medications Medications: Current Medications Acetaminophen (Tylenol 325mg Tab) 650 mg PO Q6 PRN PRN Reason: Fever >100.4 F Last Admin: 10/02/18 00:14 Dose: 650 mg Albuterol/Ipratropium (Duoneb 3 Mg/0.5 Mg (3 Ml) Ud) 3 ml INH RQ6 [facility] Last Admin: 10/13/18 01:25 Dose: 3 ml Apixaban (Eliquis) 2.5 mg PO BID [facility] Last Admin: 10/12/18 20:01 Dose: 2.5 mg Aspirin (Aspirin Chewable) 81 mg PO DAILY [facility] Last Admin: 10/12/18 10:12 Dose: 81 mg Benzonatate (Tessalon Perles) 100 mg PO TID [facility] Last Admin: 10/12/18 20:02 Dose: 100 mg Brimonidine Tartrate (Alphagan 0.2% Opht) 0 ml OU DAILY [facility] Last Admin: 10/12/18 10:44 Dose: Not Given Finasteride (Proscar) 5 mg PO DAILY [facility] Last Admin: 10/12/18 10:12 Dose: 5 mg Guaifenesin (Mucinex La) 600 mg PO BID [facility] Last Admin: 10/12/18 20:01 Dose: 600 mg Cefepime HCl 1 gm/ Dextrose 50 mls @ 100 mls/hr IVPB Q12H [facility]; Protocol Last Admin: 10/13/18 00:18 Dose: 100 mls/hr Vancomycin/Sodium Chloride (Vancomycin 1 Gm/Ns 200 Ml) 1 gm in 200 mls @ 133.333 mls/hr IVPB Q24H [facility]; Protocol Last Admin: 10/12/18 13:18 Dose: 133.333 mls/hr Insulin Aspart (Novolog) 0 unit SC ACHS [facility]; Protocol Last Admin: 10/12/18 22:07 Dose: Not Given Latanoprost (Xalatan Opht) 0 ml OU HS [facility] Last Admin: 10/12/18 22:07 Dose: 1 ml Lorazepam (Ativan) 0.5 mg IVP ONCE PRN PRN Reason: Agitation Last Admin: 10/04/18 00:14 Dose: 0.5 mg Nicotine (Nicoderm Cq) 1 patch TD DAILY [facility] Last Admin: 10/12/18 10:12 Dose: 1 patch Quetiapine Fumarate (Seroquel) 25 mg PO BID PRN PRN Reason: Agitation Last Admin: 10/04/18 20:36 Dose: 25 mg Rosuvastatin Calcium (Crestor) 10 mg PO HS [facility] Last Admin: 10/12/18 22:06 Dose: 10 mg Saccharomyces Boulardii (Florastor) 250 mg PO BID [facility] Last Admin: 10/12/18 20:01 Dose: 250 mg Verapamil HCl (Calan Sr Tab) 180 mg PO DAILY [facility] Last Admin: 10/11/18 10:36 Dose: Not Given - Labs Labs: 10/12/18 08:00 10/12/18 08:00 PT 14.8 SECONDS (9.7-12.2) H 10/11/18 12:37 INR 1.4 10/11/18 12:37 APTT 33 SECONDS (21-34) 10/11/18 12:37
[2018-10-13] MEDS ORDERED: Albuterol-Ipratrop 3 mg / 0.5 (3 ml) UD INH ONE (07:30)
[2018-10-13] MEDS ORDERED: Acetylcysteine 20% Inhal Soln (4ml) INH ONE (07:30)
--- NOTE | 2018-10-13 08:14 | CP.PCM.PN ---
Subjective - Date & Time of Evaluation Date of Evaluation: 10/13/18 Time of Evaluation: 08:14 - Subjective Subjective: Medicine Progress Note - Dr Norris's service Patient seen and examined at bedside. Yesterday patient was found to be in afib with RVR. Patient was given Lopressor 5mg IVP x 2, Cardizem 10mg IVP x 1 and Verapamil 180mg. Currently he is back in sinus rhythm. Patient resting comfortably in bed. Denies any acute complaints. Objective - Vital Signs/Intake and Output Vital Signs (last 24 hours): Temp Pulse Resp BP Pulse Ox 98 F 75 20 99/65 L 98 10/12/18 23:10 10/13/18 07:28 10/12/18 23:10 10/12/18 23:10 10/12/18 23:10 - Medications Medications: Current Medications Acetaminophen (Tylenol 325mg Tab) 650 mg PO Q6 PRN PRN Reason: Fever >100.4 F Last Admin: 10/02/18 00:14 Dose: 650 mg Albuterol/Ipratropium (Duoneb 3 Mg/0.5 Mg (3 Ml) Ud) 3 ml INH RQ6 [facility] Last Admin: 10/13/18 01:25 Dose: 3 ml Apixaban (Eliquis) 2.5 mg PO BID [facility] Last Admin: 10/12/18 20:01 Dose: 2.5 mg Aspirin (Aspirin Chewable) 81 mg PO DAILY [facility] Last Admin: 10/12/18 10:12 Dose: 81 mg Benzonatate (Tessalon Perles) 100 mg PO TID [facility] Last Admin: 10/12/18 20:02 Dose: 100 mg Brimonidine Tartrate (Alphagan 0.2% Opht) 0 ml OU DAILY [facility] Last Admin: 10/12/18 10:44 Dose: Not Given Finasteride (Proscar) 5 mg PO DAILY [facility] Last Admin: 10/12/18 10:12 Dose: 5 mg Guaifenesin (Mucinex La) 600 mg PO BID [facility] Last Admin: 10/12/18 20:01 Dose: 600 mg Cefepime HCl 1 gm/ Dextrose 50 mls @ 100 mls/hr IVPB Q12H [facility]; Protocol Last Admin: 10/13/18 00:18 Dose: 100 mls/hr Vancomycin/Sodium Chloride (Vancomycin 1 Gm/Ns 200 Ml) 1 gm in 200 mls @ 133.333 mls/hr IVPB Q24H [facility]; Protocol Last Admin: 10/12/18 13:18 Dose: 133.333 mls/hr Insulin Aspart (Novolog) 0 unit SC ACHS [facility]; Protocol Last Admin: 10/12/18 22:07 Dose: Not Given Latanoprost (Xalatan Opht) 0 ml OU HS [facility] Last Admin: 10/12/18 22:07 Dose: 1 ml Lorazepam (Ativan) 0.5 mg IVP ONCE PRN PRN Reason: Agitation Last Admin: 10/04/18 00:14 Dose: 0.5 mg Nicotine (Nicoderm Cq) 1 patch TD DAILY [facility] Last Admin: 10/12/18 10:12 Dose: 1 patch Quetiapine Fumarate (Seroquel) 25 mg PO BID PRN PRN Reason: Agitation Last Admin: 10/04/18 20:36 Dose: 25 mg Rosuvastatin Calcium (Crestor) 10 mg PO HS [facility] Last Admin: 10/12/18 22:06 Dose: 10 mg Saccharomyces Boulardii (Florastor) 250 mg PO BID [facility] Last Admin: 10/12/18 20:01 Dose: 250 mg Verapamil HCl (Calan Sr Tab) 180 mg PO DAILY [facility] Last Admin: 10/11/18 10:36 Dose: Not Given - Labs Labs: 10/12/18 08:00 10/12/18 08:00 PT 14.8 SECONDS (9.7-12.2) H 10/11/18 12:37 INR 1.4 10/11/18 12:37 APTT 33 SECONDS (21-34) 10/11/18 12:37 - Constitutional Appears: Non-toxic, No Acute Distress - Head Exam Head Exam: ATRAUMATIC, NORMAL INSPECTION, NORMOCEPHALIC - Eye Exam Eye Exam: EOMI, Normal appearance - ENT Exam ENT Exam: Mucous Membranes Moist - Neck Exam Neck Exam: Full ROM - Respiratory Exam Respiratory Exam: Decreased Breath Sounds, Rhonchi. absent: Rales, Wheezes - Cardiovascular Exam Cardiovascular Exam: REGULAR RHYTHM, +S1, +S2 - GI/Abdominal Exam GI & Abdominal Exam: Soft. absent: Guarding, Rigid, Tenderness - Extremities Exam Extremities Exam: absent: Calf Tenderness - Neurological Exam Neurological Exam: Alert, Awake - Psychiatric Exam Psychiatric exam: Normal Affect, Normal Mood - Skin Skin Exam: Dry, Normal Color, Warm Assessment and Plan - Assessment and Plan (Free Text) Assessment: This is an 83 year old male who was admitted for AMS, acute on chronic stroke, septic 2/2 to PNA and UTI?, with symptomatic severe aortic stenosis Plan: Urosepsis? Prostatitis? - ORTHODONTIST ASSISTANT called on 10/11/18 for lethargy, hypotensive; WBC elevated at 26.3 - Hx of multiple admissions for urosepsis; last admission was 3 months ago at [facility] [place] - Leukocytosis worsening, 25.0 today - Procalcitonin 2.38, repeat Procalcitonin pending - Will order CT chest/abdomen/pelvis w/o contrast - Chest xray s/p bolus: mild hyperinflation suggestion chronic manifestation of COPD w/chronic interstitial changes and/or fibrosis b/l bases; chronic bibasilar atelectasis; b/l effusions w/ silhouetting bother posterior sulci - Urine and blood cx ordered (urine and blood cultures from 10/08/18 were negative) - Continue Vanco 1gm IV Q24h (started on 10/11/18) - Continue Cefepime 1gm IV Q12h (started on 10/11/18) - ID consulted, Dr. Pastrana; help appreciated. Imaging: CXR 10/12/18: patchy right sided nodular infiltrates Hypotension (improving) - Likely secondary to urosepsis and dehydration Acute on chronic CVA - Head CT ordered (10/11/18) due to lethargy, change in MS: no acute changes; chronic left frontal and left posterior temporoparietal infarct; small chronic right posterior tempororparietal watershed zone infarct; scattered chronic b/l basal nuclei and b/l basal nuclei and b'l cerebellar lacunar type infarct; moderate to significant generalized volume loss; mottled appearance of the inner table of calvarium w/scattered lucencies. - Continue ASA 81mg PO daily, Crestor 10mg PO HS - Plavix 75 mg PO daily discontinued 2/2 risk of bleeding - Echo w/ bubble study showed no PFO, severe , and diastolic dysfunction, LVEF 65-70%; please refer to full report - Patient unable to complete MRA neck - Neurology on consult, Dr Manrique, help appreciated - Patient cleared from neurological standpoint as per neuro - Physical therapy ordered Imaging: * CT head: showed multiple old infarcts; no acute infarct seen; please refer to full report * Brain MRI:There are 2 tiny focal areas of mild restricted diffusion, both of which are located in the posterior temporoparietal cortices left slightly larger and the slightly more anterior in location on the right side. Note that the both of these foci are adjacent to, abutting areas of larger chronic infarcts left larger than right... Both of these foci could represent small acute/subacute areas of reversible ischemia (TIAs) or tiny acute/subacute infarcts. Note that a small components of shine through artifact cannot be excluded. No additional focal areas of abnormal restricted diffusion identified. Chronic confluent white matter ischemic changes with more discrete bifrontal infarcts left larger than right. There also chronic bilateral cerebellar infarcts * Echocardiogram: EF 65-70%, diastolic dysfunction, severe valvular aortic stenosis, aortic valve area 0.76cm2, borderline MVP * MRA Head: no occlusion or significant stenosis of [place] arterial anatomy. 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 Atrial fibrillation, Atrial flutter - Patient was on cardizem drip--> Drip discontinued - On Verapamil 180mg PO daily - On Eliquis 2.5mg PO BID - Cardiology on consult, Dr Lujan, help appreciated Severe Aortic Stenosis - Dr. Lujan; cardiology; thank you for your help - On echo, severe valvular aortic stenosis, aortic valve area 0.76cm2 - Per lumber inspector, patient possibly needs cardiac cath and TAVR; however, patient and family refuse at this time. - Continue medical management NSTEMI; resolved - Dr. Lujan; cardiology; thank you for your help - EKG showed Nonspecific t-wave abnormality - Troponins 0.1230, 0.1230, 0.0940 - Per lumber inspector, patient possibly needs cardiac cath and TAVR; however, patient and family refuse at this time. Pneumonia - Patient started on Cefepime 1 gm Q12H and Vancomycin 1gm daily - CXR showed consolidation in right middle lobes and right lower lobe, patchy infiltrate in left lower lobe (see full report) - CT chest: bilateral lower lobe consolidation, adjacent interstitial changes. Prominent mediastinal lymph nodes. Ectasia of ascending thoracic aorta 3.7cm (see full report) - Antibiotics: Avelox 400mg PO daily x 5 days (last dose given on 10/08/18) - Zosyn 3.375 Q8H (active from 09/25/18-10/04/18) and Vancomycin 1g Q24H (active from 09/25/18-10/03/18) - Continue Florastor 250mg PO BID - Continue Mucinex 600mg PO BID, Duonebs 3ml INH RQ6H PRN shortness of breath - Tessalon Pearles 100mg PO TID for cough suppression - ID on consult, help appreciated Suicidal Ideation; resolved - Psych on consult, Dr Brown, help appreciated Hx of Dementia - Donepizil 5mg daily - Continue Seroquel 25mg PO BID prn for agitation - Dr. Brown; psychiatry; thank you for your help Hx of BPH - Continue Finasteride 5mg PO daily Hx of bacteremia; treated at [facility] [place] 3mo ago - Blood cultures (09/24/18): no growth after 5 days Hyperglycemia - Hemoglobin A1c 5.1 Prophylactic Measures - Eliquis 2.5 mg PO BID - hx of falls; fall precautions - PT/OT eval Disposition: Pending repeat cultures to determine antibiotics and length of course. CT chest/abd/pelvis ordered. Patient is for discharge to [facility] [place] when medically stable. Plan discussed with Dr Myrna Moreno DO PGY-2
[2018-10-13 08:16] LABS: BASO # 0.1 K/uL (0.0-0.2); BASO % 0.2 % (0.0-2.0); EOS % 0.2 % (0.0-4.0); HEMOGLOBIN 9.7 g/dL (12.0-18.0); LYMPH # 1.6 K/uL (1.0-4.3); LYMPH % 6.3 % (20.0-40.0); MEAN CELL VOLUME 84.7 fL (80.0-94.0); MEAN CORPUSCULAR HGB CONC 31.8 g/dL (33.0-37.0); MEAN PLATELET VOLUME 7.3 fL (7.2-11.7); MONO # 1.2 K/uL (0.0-0.8); NEUT % 88.3 % (50.0-75.0); PLATELET COUNT 436 K/uL (130-400); RBC 3.58 Mil/uL (4.40-5.90); RED CELL DISTRIBUTION WIDTH 17.3 % (11.5-14.5)
[2018-10-13 08:53] LABS: ALB/GLOB RATIO 0.8 (1.0-2.1); ALBUMIN 2.9 g/dL (3.5-5.0); ALT/SGPT 25 U/L (21-72); AST/SGOT 39 U/L (17-59); BLOOD UREA NITROGEN 40 mg/dL (9-20); CALCIUM 8.9 mg/dl (8.6-10.4); GFR NON-AFRICAN AMERICAN > 60
[2018-10-13 09:19] LABS: LYMPHOCYTE 5 % (20-40); MONOCYTE 3 % (0-10); NEUTROPHIL 92 % (50-75); TOTAL CELLS COUNTED 100
[2018-10-13 09:20] LABS: ANISOCYTOSIS SLIGHT; HYPOCHROMIC SLIGHT; PLATELET ESTIMATE SLIGHTLY INCREASED (NORMAL); POLYCHROMIC SLIGHT
[2018-10-13 09:21] LABS: OVALOCYTES SLIGHT
[2018-10-13] MEDS: guaiFENesin 600 mg ER Tab PO SCH ×2 (10:48→17:28)
[2018-10-13] MEDS: (Novolog) Insulin Aspart, Recombinant 100 u/ml 10 ml vial SC SCH ×4 (10:49→22:00)
[2018-10-13] MEDS: Brimonidine 0.2% Opth Sol (5ml) OU SCH (10:50)
[2018-10-13] MEDS: Verapamil 180 mg ER Tab PO SCH (10:52)
[2018-10-13] MEDS: Saccharomyces Boulardi 250 mg Cap PO SCH ×2 (11:03→17:27)
[2018-10-13] MEDS: Vancomycin 1 gm/NS 200 ml 1 GM/200 ML BAG IVPB SCH ×3 (12:48→17:10)
--- NOTE | 2018-10-13 14:14 | CT ---
Date of service: 10/13/2018 PROCEDURE: CT Chest, Abdomen and Pelvis without intravenous contrast HISTORY: Pneumonia, persistent leukocytosis COMPARISON: Comparison made with CT chest 10/03/2018. TECHNIQUE: Contiguous helical/transaxial sections of the chest abdomen pelvis performed without oral or intravenous contrast material. Additional 2D sagittal and coronal reformats generated. Study is limited as a result of the lack of oral and circulating intravenous contrast material.. Radiation dose: Total exam DLP = 283.91 mGy-cm. This CT exam was performed using one or more of the following dose reduction techniques: Automated exposure control, adjustment of the mA and/or kV according to patient size, and/or use of iterative reconstruction technique. FINDINGS: CT CHEST WITHOUT CONTRAST: LUNGS: Atelectatic changes are present in the right lung base associate with air bronchograms. More dense consolidation left medial posterior lower lung field with few residual small of bronchograms present. There are scattered patchy nodular and ground-glass / interstitial opacities seen in the anterior aspect left upper lobe as well. Superimposed pneumonia not excluded. . Minor atelectasis seen in the right middle lobe with linear scarring in the right anterior upper lung field. Small approximately 2.8 mm pleural-based nodule right middle lobe along the anterolateral convexity again seen. This focus likely represent some post inflammatory sequela. MEDIASTINUM: The heart remains markedly enlarged with changes that suggest underlying anemia. Ascending thoracic aorta is mildly dilated measuring approximately 3.8 cm. Descending thoracic aorta measures approximately 2.7 cm. Minor calcified atherosclerotic plaque seen along the thoracic aorta. Pulmonary trunk measures approximately 2.8 cm. Findings also consistent with diffuse anemia. ... LYMPH NODES: Several small to mildly enlarged mediastinal lymph nodes are present, the largest pretracheal/precarinal junction lymph node measuring approximately 16 point 4 mm. There are also prominent anterior upper paratracheal lymph nodes. Few tiny calcifications are felt to be present within ill-defined subcarinal lymph nodes as well.. Evaluation for hilar adenopathy limited due to the lack of circulating intravenous contrast material. The trachea midline and patent with no large central endoluminal lesions. Small hiatal hernia with slight wall thickening of the distal esophagus likely due to protrusion of gastric mucosa. Esophagitis not excluded. PLEURA: No evidence of pneumothorax. No significant effusion. BONES: Multilevel degenerative spondylosis of the thoracic spine. There is a mild-moderate dextroscoliosis centered at the thoracolumbar junction. No acute compression fractures no retropulsed fragments. OTHER FINDINGS: Marked cachexia. CT ABDOMEN AND PELVIS: LIVER: Unremarkable. No gross lesion or ductal dilatation. GALLBLADDER AND BILE DUCTS: Gallbladder is not seen with complete certainty. PANCREAS: Unremarkable. No gross lesion or ductal dilatation. SPLEEN: Unremarkable. ADRENALS: Adrenal glands are poorly delineated on this exam.. KIDNEYS AND URETERS: Redemonstrated are at least 3 left renal cysts,, largest of which is exophytic arising from the upper pole left kidney.. Small right renal cysts felt present along the lateral cortex mid pole right kidney... Punctate nonobstructing calcification within the collecting system mid to lower pole right kidney. VASCULATURE: Mild aortic atherosclerotic calcification or mural plaque present. Unremarkable. No aortic aneurysm. BOWEL: Evaluation bowel is limited due to the lack of oral contrast material.. Stomach is predominately collapsed with thick-walled appearance. No evidence of acute mechanical small bowel obstruction. Large amount of stool is present within the colon consistent with fecal retention/constipation. Of small bowel exhibit normal contour APPENDIX: Appendix not seen with any certainty on this study however no evidence of obvious inflammatory changes right lower quadrant of the abdomen.. PERITONEUM: Unremarkable. No free fluid. No free air. LYMPH NODES: Unremarkable. No enlarged lymph nodes. BLADDER: The urinary bladder is incompletely distended which in part accounts for thick-walled appearance. Muscular hypertrophy presumably contributes. Rule out cystitis. Prostate gland REPRODUCTIVE: Prostate gland measures approximately 3.6 cm. BONES: Multilevel degenerative spondylosis with scoliotic deformities of the thoracic and lumbar spine as mentioned above OTHER FINDINGS: Marked cachexia. IMPRESSION: Limited study as above. Persistent dense consolidation left medial lung base with atelectasis right lung base. In addition, there are scattered patchy nodular and ground-glass / interstitial opacities seen in the anterior aspect left upper lobe as well. Superimposed pneumonia not excluded. Minor atelectasis seen in the right middle lobe with linear scarring in the right anterior upper lung field. Small approximately 2.8 mm pleural-based nodule right middle lobe along the anterolateral convexity again seen. This focus likely represent some post inflammatory sequela. Findings consistent with constipation. Bilateral renal cysts. Nonobstructing calcification mid to lower pole right kidney. Of urinary bladder wall thickening likely due to the incomplete distention and muscular hypertrophy however correlation with urinalysis recommended to exclude cystitis Marked cachexia.
--- NOTE | 2018-10-13 18:00 | CP.PCM.PN ---
Subjective - Date & Time of Evaluation Date of Evaluation: 10/13/18 Time of Evaluation: 07:00 - Subjective Subjective: events noted IV rx in progress 'wbc elevated BUT NO FEVER Objective - Vital Signs/Intake and Output Vital Signs (last 24 hours): Temp Pulse Resp BP Pulse Ox 97.9 F 73 22 91/53 L 93 L 10/13/18 15:30 10/13/18 15:30 10/13/18 15:30 10/13/18 15:30 10/13/18 15:30 Intake and Output: 10/13/18 10/13/18 06:59 18:59 Intake Total 500 Balance 500 - Medications Medications: Current Medications Acetaminophen (Tylenol 325mg Tab) 650 mg PO Q6 PRN PRN Reason: Fever >100.4 F Last Admin: 10/02/18 00:14 Dose: 650 mg Albuterol/Ipratropium (Duoneb 3 Mg/0.5 Mg (3 Ml) Ud) 3 ml INH RQ6 [facility] Last Admin: 10/13/18 13:45 Dose: 3 ml Apixaban (Eliquis) 2.5 mg PO BID [facility] Last Admin: 10/13/18 17:27 Dose: 2.5 mg Aspirin (Aspirin Chewable) 81 mg PO DAILY [facility] Last Admin: 10/13/18 10:47 Dose: 81 mg Benzonatate (Tessalon Perles) 100 mg PO TID [facility] Last Admin: 10/13/18 17:28 Dose: 100 mg Brimonidine Tartrate (Alphagan 0.2% Opht) 0 ml OU DAILY [facility] Last Admin: 10/13/18 10:50 Dose: 2 drop Finasteride (Proscar) 5 mg PO DAILY [facility] Last Admin: 10/13/18 10:48 Dose: 5 mg Guaifenesin (Mucinex La) 600 mg PO BID [facility] Last Admin: 10/13/18 17:28 Dose: 600 mg Cefepime HCl 1 gm/ Dextrose 50 mls @ 100 mls/hr IVPB Q12H [facility]; Protocol Last Admin: 10/13/18 11:04 Dose: 100 mls/hr Vancomycin/Sodium Chloride (Vancomycin 1 Gm/Ns 200 Ml) 1 gm in 200 mls @ 133.333 mls/hr IVPB Q24H [facility]; Protocol Last Admin: 10/13/18 17:10 Dose: 133.333 mls/hr Insulin Aspart (Novolog) 0 unit SC ACHS [facility]; Protocol Last Admin: 10/13/18 17:08 Dose: Not Given Latanoprost (Xalatan Opht) 0 ml OU HS [facility] Last Admin: 10/12/18 22:07 Dose: 1 ml Lorazepam (Ativan) 0.5 mg IVP ONCE PRN PRN Reason: Agitation Last Admin: 10/04/18 00:14 Dose: 0.5 mg Nicotine (Nicoderm Cq) 1 patch TD DAILY [facility] Last Admin: 10/13/18 10:49 Dose: 1 patch Quetiapine Fumarate (Seroquel) 25 mg PO BID PRN PRN Reason: Agitation Last Admin: 10/04/18 20:36 Dose: 25 mg Rosuvastatin Calcium (Crestor) 10 mg PO HS [facility] Last Admin: 10/12/18 22:06 Dose: 10 mg Saccharomyces Boulardii (Florastor) 250 mg PO BID [facility] Last Admin: 10/13/18 17:27 Dose: 250 mg Verapamil HCl (Calan Sr Tab) 180 mg PO DAILY [facility] Last Admin: 10/13/18 10:52 Dose: 180 mg - Labs Labs: 10/13/18 08:07 10/13/18 08:07 PT 14.8 SECONDS (9.7-12.2) H 10/11/18 12:37 INR 1.4 10/11/18 12:37 APTT 33 SECONDS (21-34) 10/11/18 12:37 - Constitutional Appears: Non-toxic, Cachectic, Chronically Ill - Head Exam Head Exam: NORMOCEPHALIC - Eye Exam Eye Exam: absent: Scleral icterus - ENT Exam ENT Exam: Mucous Membranes Dry - Neck Exam Neck Exam: absent: Lymphadenopathy - Respiratory Exam Respiratory Exam: Decreased Breath Sounds, Prolonged Expiratory Phase, Rhonchi - Cardiovascular Exam Cardiovascular Exam: REGULAR RHYTHM - GI/Abdominal Exam GI & Abdominal Exam: Distended, Soft. absent: Tenderness - Rectal Exam Rectal Exam: Deferred - Exam Exam: NORMAL INSPECTION - Extremities Exam Extremities Exam: absent: Pedal Edema - Back Exam Back Exam: absent: CVA tenderness (L), CVA tenderness (R) - Neurological Exam Neurological Exam: Alert, Awake, CN II-XII Intact - Psychiatric Exam Psychiatric exam: Normal Mood - Skin Skin Exam: Dry Assessment and Plan (1) Sepsis Status: Acute (2) CVA (cerebral vascular accident) Status: Acute - Assessment and Plan (Free Text) Assessment: CULTURES SO FAR NEG WBC AGAIN INCREASPOSSIBLY SECONDARY TO STRESS/ DEMARGINATION? WILL REPEAT CXR
[2018-10-13] MEDS: Meropenem 500 MG in Sodium Chloride 0.9% 100 ML IVPB SCH (21:18)
[2018-10-13] MEDS: Latanoprost 2.5 ml Opht Soln OU SCH (21:19)
[2018-10-14 00:45] VITALS: RESP 20
[2018-10-14] MEDS: Meropenem 500 MG in Sodium Chloride 0.9% 100 ML IVPB SCH ×3 (03:09→21:00)
[2018-10-14] MEDS: Albuterol-Ipratrop 3 mg / 0.5 (3 ml) UD INH SCH (03:20)
[2018-10-14 08:23] LABS: BASO # 0.1 K/uL (0.0-0.2); BASO % 0.6 % (0.0-2.0); EOS # 0.2 K/uL (0.0-0.7); EOS % 1.6 % (0.0-4.0); HEMOGLOBIN 9.1 g/dL (12.0-18.0); LYMPH # 1.1 K/uL (1.0-4.3); LYMPH % 9.7 % (20.0-40.0); MEAN CELL VOLUME 84.5 fL (80.0-94.0); MEAN CORPUSCULAR HEMOGLOBIN 27.1 pg (27.0-31.0); MEAN PLATELET VOLUME 7.5 fL (7.2-11.7); MONO # 0.9 K/uL (0.0-0.8); MONO % 8.1 % (0.0-10.0); NEUT # 8.9 K/uL (1.8-7.0); NRBC % 0.1 % (0.0-2.0); PLATELET COUNT 400 K/uL (130-400); RBC 3.35 Mil/uL (4.40-5.90)
[2018-10-14 08:27] LABS: WHITE BLOOD COUNT 11.1 K/uL (4.8-10.8)
[2018-10-14 08:36] LABS: ALB/GLOB RATIO 0.8 (1.0-2.1); ALBUMIN 2.7 g/dL (3.5-5.0); ALT/SGPT 19 U/L (21-72); AST/SGOT 19 U/L (17-59); BLOOD UREA NITROGEN 41 mg/dL (9-20); CALCIUM 8.5 mg/dl (8.6-10.4); GFR NON-AFRICAN AMERICAN > 60
[2018-10-14] MEDS: (Novolog) Insulin Aspart, Recombinant 100 u/ml 10 ml vial SC SCH ×4 (08:49→22:20)
[2018-10-14 09:25] LABS: ANISOCYTOSIS SLIGHT; EOSINOPHIL 1 % (0-4); LYMPHOCYTE 10 % (20-40); MONOCYTE 10 % (0-10); NEUTROPHIL 79 % (50-75); PLATELET ESTIMATE NORMAL (NORMAL); POIKILOCYTOSIS SLIGHT; TOTAL CELLS COUNTED 100
[2018-10-14 09:26] LABS: HYPOCHROMIC SLIGHT
[2018-10-14] MEDS: Saccharomyces Boulardi 250 mg Cap PO SCH ×2 (11:33→18:34)
[2018-10-14] MEDS: guaiFENesin 600 mg ER Tab PO SCH ×2 (11:33→18:34)
[2018-10-14] MEDS: Brimonidine 0.2% Opth Sol (5ml) OU SCH (11:34)
[2018-10-14] MEDS: Verapamil 120 mg ER Tab PO SCH (11:34)
[2018-10-14] MEDS: Verapamil 180 mg ER Tab PO SCH (11:35)
--- NOTE | 2018-10-14 11:47 | CP.PCM.PN ---
Subjective - Date & Time of Evaluation Date of Evaluation: 10/14/18 Time of Evaluation: 09:00 - Subjective Subjective: Progress note for Dr. Norris Patient was seen and examined at bedside in no acute distress. Preventive Maintenance Engineer was used. The patient reports he feels well and has no complaints today. He is alert and orients to person and place but not time. No events overnight per nursing. Objective - Vital Signs/Intake and Output Vital Signs (last 24 hours): Temp Pulse Resp BP Pulse Ox 97.6 F 68 20 92/56 L 95 10/14/18 07:00 10/14/18 07:42 10/14/18 07:00 10/14/18 07:00 10/14/18 07:00 - Medications Medications: Current Medications Acetaminophen (Tylenol 325mg Tab) 650 mg PO Q6 PRN PRN Reason: Fever >100.4 F Last Admin: 10/02/18 00:14 Dose: 650 mg Apixaban (Eliquis) 2.5 mg PO BID [facility] Last Admin: 10/14/18 11:33 Dose: 2.5 mg Aspirin (Aspirin Chewable) 81 mg PO DAILY [facility] Last Admin: 10/14/18 11:33 Dose: 81 mg Benzonatate (Tessalon Perles) 100 mg PO TID [facility] Last Admin: 10/14/18 11:34 Dose: 100 mg Brimonidine Tartrate (Alphagan 0.2% Opht) 0 ml OU DAILY [facility] Last Admin: 10/14/18 11:34 Dose: 2 drop Finasteride (Proscar) 5 mg PO DAILY [facility] Last Admin: 10/14/18 11:39 Dose: 5 mg Guaifenesin (Mucinex La) 600 mg PO BID [facility] Last Admin: 10/14/18 11:33 Dose: 600 mg Vancomycin/Sodium Chloride (Vancomycin 1 Gm/Ns 200 Ml) 1 gm in 200 mls @ 133.333 mls/hr IVPB Q24H [facility]; Protocol Last Admin: 10/13/18 17:10 Dose: 133.333 mls/hr Meropenem 500 mg/ Sodium (Chloride) 100 mls @ 100 mls/hr IVPB Q8H [facility]; Protocol Last Admin: 10/14/18 11:40 Dose: 100 mls/hr Insulin Aspart (Novolog) 0 unit SC ACHS [facility]; Protocol Last Admin: 10/14/18 11:40 Dose: Not Given Latanoprost (Xalatan Opht) 0 ml OU HS [facility] Last Admin: 10/13/18 21:19 Dose: 1 ml Lorazepam (Ativan) 0.5 mg IVP ONCE PRN PRN Reason: Agitation Last Admin: 10/04/18 00:14 Dose: 0.5 mg Nicotine (Nicoderm Cq) 1 patch TD DAILY [facility] Last Admin: 10/14/18 11:38 Dose: 1 patch Quetiapine Fumarate (Seroquel) 25 mg PO BID PRN PRN Reason: Agitation Last Admin: 10/04/18 20:36 Dose: 25 mg Rosuvastatin Calcium (Crestor) 10 mg PO HS [facility] Last Admin: 10/13/18 21:18 Dose: 10 mg Saccharomyces Boulardii (Florastor) 250 mg PO BID [facility] Last Admin: 10/14/18 11:33 Dose: 250 mg Verapamil HCl (Calan Sr Tab) 120 mg PO DAILY [facility] Last Admin: 10/14/18 11:34 Dose: 120 mg - Labs Labs: 10/14/18 08:00 10/14/18 08:00 PT 14.8 SECONDS (9.7-12.2) H 10/11/18 12:37 INR 1.4 10/11/18 12:37 APTT 33 SECONDS (21-34) 10/11/18 12:37 - Additional Findings Additional findings: - Constitutional Appears: No Acute Distress, Cachectic - Head Exam Head Exam: ATRAUMATIC, NORMAL INSPECTION - Eye Exam Eye Exam: EOMI - ENT Exam ENT Exam: Mucous Membranes Moist - Respiratory Exam Respiratory Exam: NORMAL BREATHING PATTERN, decreased breath sounds. absent: Rales, Rhonchi, Wheezes - Cardiovascular Exam Cardiovascular Exam: +S1, +S2, Murmur, irregular rhythm - GI/Abdominal Exam GI & Abdominal Exam: Soft, Normal Bowel Sounds. absent: Distended, Tenderness - Extremities Exam Extremities Exam: Normal Inspection. absent: Pedal Edema, Tenderness - Neurological Exam Neurological Exam: Awake, oriented x2 (person, place, not time) - Psychiatric Exam Psychiatric exam: Normal Affect, Normal Mood - Skin Skin Exam: Dry, Normal Color, Warm Assessment and Plan - Assessment and Plan (Free Text) Plan: This is an 83 year old male who was admitted for AMS, acute on chronic stroke, septic 2/2 to PNA and UTI?, with symptomatic severe aortic stenosis Plan: Urosepsis? Prostatitis? - VISUAL DESIGNER called on 10/11/18 for lethargy, hypotensive; WBC elevated at 26.3 - Hx of multiple admissions for urosepsis; last admission was 3 months ago at [facility] [place] [place] - Leukocytosis 11.1, decreased from yesterday (25.0) - Procalcitonin elevated - CT chest/abdomen/pelvis w/o contrast: Persistent dense consolidation left medial lung base with atelectasis right lung base; scattered patchy nodular and ground-glass / interstitial opacities seen in the anterior aspect left upper lobe as well; Superimposed pneumonia not excluded; Minor atelectasis seen in the right middle lobe with linear scarring in the right anterior upper lung field. Small approximately 2.8 mm pleural-based nodule right middle lobe along the anterolateral convexity again seen, likely represents some post inflammatory sequela. Bilateral renal cysts. Nonobstructing calcification mid to lower pole right kidney; urinary bladder wall thickening likely due to the incomplete distention and muscular hypertrophy however correlation with urinalysis recommended to exclude cystitis; Marked cachexia. - Chest xray s/p bolus: mild hyperinflation suggestion chronic manifestation of COPD w/chronic interstitial changes and/or fibrosis b/l bases; chronic bibasilar atelectasis; b/l effusions w/ silhouetting bother posterior sulci - CXR 10/12/18: patchy right sided nodular infiltrates - Urine and blood from 10/08/18 and 10/11/18 were negative - Continue Vanco 1gm IV Q24h (started on 10/11/18) - Continue Cefepime 1gm IV Q12h (started on 10/11/18) - ID consulted, Dr. Pastrana; help appreciated. *Midline to be placed so patient can continue antibiotics for 1 additional week. Hypotension (improving) - Likely secondary to urosepsis and dehydration Acute on chronic CVA - Head CT ordered (10/11/18) due to lethargy, change in MS: no acute changes; chronic left frontal and left posterior temporoparietal infarct; small chronic right posterior tempororparietal watershed zone infarct; scattered chronic b/l basal nuclei and b/l basal nuclei and b'l cerebellar lacunar type infarct; moderate to significant generalized volume loss; mottled appearance of the inner table of calvarium w/scattered lucencies. - Continue ASA 81mg PO daily, Crestor 10mg PO HS - Plavix 75 mg PO daily discontinued 2/2 risk of bleeding - Echo w/ bubble study showed no PFO, severe , and diastolic dysfunction, LVEF 65-70%; please refer to full report - Patient unable to complete MRA neck - Neurology on consult, Dr Manrique, help appreciated - Patient cleared from neurological standpoint as per neuro - Physical therapy ordered Imaging: * CT head: showed multiple old infarcts; no acute infarct seen; please refer to full report * Brain MRI:There are 2 tiny focal areas of mild restricted diffusion, both of which are located in the posterior temporoparietal cortices left slightly larger and the slightly more anterior in location on the right side. Note that the both of these foci are adjacent to, abutting areas of larger chronic infarcts left larger than right... Both of these foci could represent small acute/subacute areas of reversible ischemia (TIAs) or tiny acute/subacute infarcts. Note that a small components of shine through artifact cannot be excluded. No additional focal areas of abnormal restricted diffusion identified. Chronic confluent white matter ischemic changes with more discrete bifrontal infarcts left larger than right. There also chronic bilateral cerebellar infarcts * Echocardiogram: EF 65-70%, diastolic dysfunction, severe valvular aortic stenosis, aortic valve area 0.76cm2, borderline MVP * MRA Head: no occlusion or significant stenosis of [place] of [place] arterial anatomy. 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 Atrial fibrillation, Atrial flutter - Patient was on cardizem drip--> Drip discontinued - On Verapamil 120mg PO daily (decreased from 180mg PO daily on 10/14/18 due to BP) - On Eliquis 2.5mg PO BID - Cardiology on consult, Dr Lujan, help appreciated Severe Aortic Stenosis - Dr. Lujan; cardiology; thank you for your help - On echo, severe valvular aortic stenosis, aortic valve area 0.76cm2 - Per acid dipper, patient possibly needs cardiac cath and TAVR; however, patient and family refuse at this time. - Continue medical management NSTEMI; resolved - Dr. Lujan; cardiology; thank you for your help - EKG showed Nonspecific t-wave abnormality - Troponins 0.1230, 0.1230, 0.0940 - Per acid dipper, patient possibly needs cardiac cath and TAVR; however, patient and family refuse at this time. Pneumonia - Patient started on Cefepime 1 gm Q12H and Vancomycin 1gm daily - CXR showed consolidation in right middle lobes and right lower lobe, patchy infiltrate in left lower lobe (see full report) - CT chest: bilateral lower lobe consolidation, adjacent interstitial changes. Prominent mediastinal lymph nodes. Ectasia of ascending thoracic aorta 3.7cm (see full report) - Antibiotics: Avelox 400mg PO daily x 5 days (last dose given on 10/08/18) - Zosyn 3.375 Q8H (active from 09/25/18-10/04/18) and Vancomycin 1g Q24H (active from 09/25/18-10/03/18) - Continue Florastor 250mg PO BID - Continue Mucinex 600mg PO BID, Duonebs 3ml INH RQ6H PRN shortness of breath - Tessalon Pearles 100mg PO TID for cough suppression - ID on consult, help appreciated Suicidal Ideation; resolved - Psych on consult, Dr Brown, help appreciated Hx of Dementia - Donepizil 5mg daily - Continue Seroquel 25mg PO BID prn for agitation - Dr. Brown; psychiatry; thank you for your help Hx of BPH - Continue Finasteride 5mg PO daily Hx of bacteremia; treated at [facility] [place] [place] 3mo ago - Blood cultures (09/24/18): no growth after 5 days Hyperglycemia - Hemoglobin A1c 5.1 Prophylactic Measures - Eliquis 2.5 mg PO BID - hx of falls; fall precautions - PT/OT eval - Palliative care consulted for goals of care Disposition: Patient needs midline placed to continue antibiotics for one additional week. Patient will be discharged to [facility] when medically stable. Case discussed and patient seen with Dr Myrna Connelly, PGY2
[2018-10-14] MEDS: Vancomycin 1 gm/NS 200 ml 1 GM/200 ML BAG IVPB SCH (13:01)
--- NOTE | 2018-10-14 14:59 | PCM.FALL ---
Post Fall Progress Note - Post Fall Fall Date: 10/14/18 Fall Time: 14:41 Description of Fall: Code star was called at 14:41. Patient was found on the floor and holding onto the rail. Patient placed back into the bed by care team. Patient fully examined. Bruise on right abdomen that is old was noted. Property Disposal Manager [phone] used. Patient states that he was trying to do physical therapy when he slipped. He denies hitting his head and denies any pain. Offers no complaints at this time. - Post Fall Exam Vital Sign: Temp Pulse Resp BP Pulse Ox 97.6 F 68 20 92/56 L 95 10/14/18 07:00 10/14/18 07:42 10/14/18 07:00 10/14/18 07:00 10/14/18 07:00 Skull Exam: Negative for: Scalp wound, Scalp hematoma Eye Exam: Positive for: Pupils equal, Pupils reactive Ear Exam: Negative for: Bleeding Nose Exam: Negative for: Bleeding Skin Exam: Positive for: Bruising (right side of abdomen (old)). Negative for: Lacerations Neck Exam: Negative for: Tenderness Spinal Exam: Negative for: Tenderness Chest Exam: Negative for: Difficulty breathing, Tenderness in ribs Abdomen Exam: Negative for: Tenderness Arm Exam: Negative for: Deformity Leg Exam: Negative for: Deformity Impression/Plan: -We will order head CT as patient is currently on Eliquis 2.5mg PO BID -Patient placed back on 1:1 sitter for safety Chrystal Moreno DO PGY-2
--- NOTE | 2018-10-14 15:55 | CT ---
Date of service: 10/14/2018 PROCEDURE: CT HEAD WITHOUT CONTRAST. HISTORY: code star/fall COMPARISON: None available. TECHNIQUE: Axial computed tomography images were obtained through the head/brain without intravenous contrast. Radiation dose: Total exam DLP = 892.45 mGy-cm. This CT exam was performed using one or more of the following dose reduction techniques: Automated exposure control, adjustment of the mA and/or kV according to patient size, and/or use of iterative reconstruction technique. FINDINGS: HEMORRHAGE: No intracranial hemorrhage. BRAIN: There is redemonstration of cystic encephalomalacia in the left posterior frontal lobe high posterior parietal lobe and left parieto-occipital watershed territory. There are chronic lacunar infarctions in the right cerebellar hemisphere. Again seen are moderate chronic microangiopathic changes. There is no mass, mass effect or abnormal extra-axial fluid collection. There is nonspecific coarse calcification in the right posterior frontal cortex. VENTRICLES: There is moderate age-related global parenchymal volume loss and proportionate enlargement of the ventricles and cortical sulci. CALVARIUM: There is no calvarial fracture or extracranial soft tissue swelling. PARANASAL SINUSES: There is mild polypoid mucosal thickening in the right maxillary sinus. The remaining included paranasal sinuses are clear. MASTOID AIR CELLS: Predominantly clear. OTHER FINDINGS: None. IMPRESSION: No acute intracranial abnormality. Redemonstration of cystic encephalomalacia in the left posterior frontal, posterior parietal and parieto-occipital watershed territory, sequela of remote MCA and MCA DOOR PULLER territory infarctions. Moderate chronic microangiopathic changes and moderate age-related global parenchymal volume loss.
[2018-10-14] MEDS ORDERED: Albuterol-Ipratrop 3 mg / 0.5 (3 ml) UD INH PRN (16:17)
--- NOTE | 2018-10-14 19:35 | CP.PCM.PN ---
Subjective - Date & Time of Evaluation Date of Evaluation: 10/14/18 Time of Evaluation: 08:00 - Subjective Subjective: events noted s/p fall omn merrem/ vanco no new cultures cont rx pneumonia Objective - Vital Signs/Intake and Output Vital Signs (last 24 hours): Temp Pulse Resp BP Pulse Ox 98.2 F 86 20 98/56 L 97 10/14/18 15:00 10/14/18 15:00 10/14/18 15:00 10/14/18 15:00 10/14/18 15:00 - Medications Medications: Current Medications Acetaminophen (Tylenol 325mg Tab) 650 mg PO Q6 PRN PRN Reason: Fever >100.4 F Last Admin: 10/02/18 00:14 Dose: 650 mg Albuterol/Ipratropium (Duoneb 3 Mg/0.5 Mg (3 Ml) Ud) 3 ml INH RQ6 PRN PRN Reason: Shortness of Breath Apixaban (Eliquis) 2.5 mg PO BID [facility] Last Admin: 10/14/18 18:34 Dose: 2.5 mg Aspirin (Aspirin Chewable) 81 mg PO DAILY [facility] Last Admin: 10/14/18 11:33 Dose: 81 mg Benzonatate (Tessalon Perles) 100 mg PO TID [facility] Last Admin: 10/14/18 18:34 Dose: 100 mg Brimonidine Tartrate (Alphagan 0.2% Opht) 0 ml OU DAILY [facility] Last Admin: 10/14/18 11:34 Dose: 2 drop Finasteride (Proscar) 5 mg PO DAILY [facility] Last Admin: 10/14/18 11:39 Dose: 5 mg Guaifenesin (Mucinex La) 600 mg PO BID [facility] Last Admin: 10/14/18 18:34 Dose: 600 mg Vancomycin/Sodium Chloride (Vancomycin 1 Gm/Ns 200 Ml) 1 gm in 200 mls @ 133.333 mls/hr IVPB Q24H [facility]; Protocol Last Admin: 10/14/18 13:01 Dose: 133.333 mls/hr Meropenem 500 mg/ Sodium (Chloride) 100 mls @ 100 mls/hr IVPB Q8H [facility]; Protocol Last Admin: 10/14/18 11:40 Dose: 100 mls/hr Insulin Aspart (Novolog) 0 unit SC ACHS [facility]; Protocol Last Admin: 10/14/18 11:40 Dose: Not Given Latanoprost (Xalatan Opht) 0 ml OU HS [facility] Last Admin: 10/13/18 21:19 Dose: 1 ml Lorazepam (Ativan) 0.5 mg IVP ONCE PRN PRN Reason: Agitation Last Admin: 10/04/18 00:14 Dose: 0.5 mg Nicotine (Nicoderm Cq) 1 patch TD DAILY [facility] Last Admin: 10/14/18 11:38 Dose: 1 patch Quetiapine Fumarate (Seroquel) 25 mg PO BID PRN PRN Reason: Agitation Last Admin: 10/04/18 20:36 Dose: 25 mg Rosuvastatin Calcium (Crestor) 10 mg PO HS [facility] Last Admin: 10/13/18 21:18 Dose: 10 mg Saccharomyces Boulardii (Florastor) 250 mg PO BID [facility] Last Admin: 10/14/18 18:34 Dose: 250 mg Verapamil HCl (Calan Sr Tab) 120 mg PO DAILY [facility] Last Admin: 10/14/18 11:34 Dose: 120 mg - Labs Labs: 10/14/18 08:00 10/14/18 08:00 PT 14.8 SECONDS (9.7-12.2) H 10/11/18 12:37 INR 1.4 10/11/18 12:37 APTT 33 SECONDS (21-34) 10/11/18 12:37 Assessment and Plan (1) Sepsis Status: Acute (2) CVA (cerebral vascular accident) Status: Acute
[2018-10-14] MEDS: Latanoprost 2.5 ml Opht Soln OU SCH (22:21)
[2018-10-15] MEDS: Meropenem 500 MG in Sodium Chloride 0.9% 100 ML IVPB SCH ×2 (04:03→12:22)
--- NOTE | 2018-10-15 07:17 | CP.PCM.PN ---
Subjective - Date & Time of Evaluation Date of Evaluation: 10/15/18 Time of Evaluation: 07:13 - Subjective Subjective: Progress note for Dr. Norris Patient was seen and examined at bedside in no acute distress. Patient requesting to go to rehab and states he is feeling well. He has no complaints today. Per nursing, no events overnight. Objective - Vital Signs/Intake and Output Vital Signs (last 24 hours): Temp Pulse Resp BP Pulse Ox 98 F 70 20 110/71 99 10/14/18 23:30 10/15/18 03:50 10/14/18 23:30 10/14/18 23:30 10/14/18 23:30 Intake and Output: 10/15/18 10/15/18 06:59 18:59 Intake Total 460 Balance 460 - Medications Medications: Current Medications Acetaminophen (Tylenol 325mg Tab) 650 mg PO Q6 PRN PRN Reason: Fever >100.4 F Last Admin: 10/02/18 00:14 Dose: 650 mg Albuterol/Ipratropium (Duoneb 3 Mg/0.5 Mg (3 Ml) Ud) 3 ml INH RQ6 PRN PRN Reason: Shortness of Breath Last Admin: 10/14/18 20:38 Dose: 3 ml Apixaban (Eliquis) 2.5 mg PO BID [facility] Last Admin: 10/14/18 18:34 Dose: 2.5 mg Aspirin (Aspirin Chewable) 81 mg PO DAILY [facility] Last Admin: 10/14/18 11:33 Dose: 81 mg Benzonatate (Tessalon Perles) 100 mg PO TID [facility] Last Admin: 10/14/18 18:34 Dose: 100 mg Brimonidine Tartrate (Alphagan 0.2% Opht) 0 ml OU DAILY [facility] Last Admin: 10/14/18 11:34 Dose: 2 drop Finasteride (Proscar) 5 mg PO DAILY [facility] Last Admin: 10/14/18 11:39 Dose: 5 mg Guaifenesin (Mucinex La) 600 mg PO BID [facility] Last Admin: 10/14/18 18:34 Dose: 600 mg Vancomycin/Sodium Chloride (Vancomycin 1 Gm/Ns 200 Ml) 1 gm in 200 mls @ 133.333 mls/hr IVPB Q24H [facility]; Protocol Last Admin: 10/14/18 13:01 Dose: 133.333 mls/hr Meropenem 500 mg/ Sodium (Chloride) 100 mls @ 100 mls/hr IVPB Q8H [facility]; Protocol Last Admin: 10/15/18 04:03 Dose: 100 mls/hr Insulin Aspart (Novolog) 0 unit SC ACHS [facility]; Protocol Last Admin: 10/14/18 22:20 Dose: Not Given Latanoprost (Xalatan Opht) 0 ml OU HS [facility] Last Admin: 10/14/18 22:21 Dose: 2.5 ml Lorazepam (Ativan) 0.5 mg IVP ONCE PRN PRN Reason: Agitation Last Admin: 10/04/18 00:14 Dose: 0.5 mg Nicotine (Nicoderm Cq) 1 patch TD DAILY [facility] Last Admin: 10/14/18 11:38 Dose: 1 patch Quetiapine Fumarate (Seroquel) 25 mg PO BID PRN PRN Reason: Agitation Last Admin: 10/04/18 20:36 Dose: 25 mg Rosuvastatin Calcium (Crestor) 10 mg PO HS [facility] Last Admin: 10/14/18 22:24 Dose: Not Given Saccharomyces Boulardii (Florastor) 250 mg PO BID [facility] Last Admin: 10/14/18 18:34 Dose: 250 mg Verapamil HCl (Calan Sr Tab) 120 mg PO DAILY [facility] Last Admin: 10/14/18 11:34 Dose: 120 mg - Labs Labs: 10/14/18 08:00 10/14/18 08:00 PT 14.8 SECONDS (9.7-12.2) H 10/11/18 12:37 INR 1.4 10/11/18 12:37 APTT 33 SECONDS (21-34) 10/11/18 12:37 - Additional Findings Additional findings: - Constitutional Appears: No Acute Distress, Cachectic - Head Exam Head Exam: ATRAUMATIC, NORMAL INSPECTION - Eye Exam Eye Exam: EOMI - ENT Exam ENT Exam: Mucous Membranes Moist - Respiratory Exam Respiratory Exam: NORMAL BREATHING PATTERN, decreased breath sounds. absent: Rales, Rhonchi, Wheezes - Cardiovascular Exam Cardiovascular Exam: +S1, +S2, Murmur, irregular rhythm - GI/Abdominal Exam GI & Abdominal Exam: Soft, Normal Bowel Sounds. absent: Distended, Tenderness - Extremities Exam Extremities Exam: Normal Inspection. absent: Pedal Edema, Tenderness - Neurological Exam Neurological Exam: Awake, oriented x2 (person, place, not time) - Psychiatric Exam Psychiatric exam: Normal Affect, Normal Mood - Skin Skin Exam: Dry, Normal Color, Warm Assessment and Plan - Assessment and Plan (Free Text) Plan: This is an 83 year old male who was admitted for AMS, acute on chronic stroke, septic 2/2 to PNA and UTI?, with symptomatic severe aortic stenosis Plan: Urosepsis? Prostatitis? (resolved) - No leukocytosis, afebrile, asymptomatic - MARKET DEVELOPMENT SPECIALIST called on 10/11/18 for lethargy, hypotensive; WBC elevated at 26.3 - Hx of multiple admissions for urosepsis; [place] admission was 3 [place] [facility] [place] Leukocytosis 11.1, decreased from yesterday (25.0) - Procalcitonin elevated - CT chest/abdomen/pelvis w/o contrast: Persistent dense consolidation left medial lung base with atelectasis right lung base; scattered patchy nodular and ground-glass / interstitial opacities seen in the anterior aspect left upper lobe as well; Superimposed pneumonia not excluded; Minor atelectasis seen in the right middle lobe with linear scarring in the right anterior upper lung field. Small approximately 2.8 mm pleural-based nodule right middle lobe along the anterolateral convexity again seen, likely represents some post inflammatory sequela. Bilateral renal cysts. Nonobstructing calcification mid to lower pole right kidney; urinary bladder wall thickening likely due to the incomplete distention and muscular hypertrophy however correlation with urinalysis recommended to exclude cystitis; Marked cachexia. - Chest xray s/p bolus: mild hyperinflation suggestion chronic manifestation of COPD w/chronic interstitial changes and/or fibrosis b/l bases; chronic bibasilar atelectasis; b/l effusions w/ silhouetting bother posterior sulci - CXR 10/12/18: patchy right sided nodular infiltrates - Urine and blood from 10/08/18 and 10/11/18 were negative - Continue Vanco 1gm IV Q24h (started on 10/11/18) - Merrem 500mg IV Q8h (started on 10/13/17) - Discontinued Cefepime 1gm IV Q12h (started on 10/11/18, discontinued on 10/13/18) - ID consulted, Dr. Pastrana; help appreciated. *Midline to be placed so patient can continue antibiotics for 1 additional week. Hypotension (resolved) - Likely secondary to urosepsis and dehydration Acute on chronic CVA - Head CT ordered (10/11/18) due to lethargy, change in MS: no acute changes; chronic left frontal and left posterior temporoparietal infarct; small chronic right posterior tempororparietal watershed zone infarct; scattered chronic b/l basal nuclei and b/l basal nuclei and b'l cerebellar lacunar type infarct; moderate to significant generalized volume loss; mottled appearance of the inner table of calvarium w/scattered lucencies. - Continue ASA 81mg PO daily, Crestor 10mg PO HS - Plavix 75 mg PO daily discontinued 2/2 risk of bleeding - Echo w/ bubble study showed no PFO, severe , and diastolic dysfunction, LVEF 65-70%; please refer to full report - Patient unable to complete MRA neck - Neurology on consult, Dr Manrique, help appreciated - Patient cleared from neurological standpoint as per neuro - Physical therapy ordered Imaging: * CT head: showed multiple old infarcts; no acute infarct seen; please refer to full report * Brain MRI:There are 2 tiny focal areas of mild restricted diffusion, both of which are located in the posterior temporoparietal cortices left slightly larger and the slightly more anterior in location on the right side. Note that the both of these foci are adjacent to, abutting areas of larger chronic infarcts left larger than right... Both of these foci could represent small acute/subacute areas of reversible ischemia (TIAs) or tiny acute/subacute infarcts. Note that a small components of shine through artifact cannot be excluded. No additional focal areas of abnormal restricted diffusion identified. Chronic confluent white matter ischemic changes with more discrete bifrontal infarcts left larger than right. There also chronic bilateral cerebellar infarcts * Echocardiogram: EF 65-70%, diastolic dysfunction, severe valvular aortic stenosis, aortic valve area 0.76cm2, borderline MVP * MRA Head: no occlusion or significant stenosis of [facility] [place] [facility] [place] arterial anatomy. 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 Atrial fibrillation, Atrial flutter - Patient was on cardizem drip--> Drip discontinued - On Verapamil 120mg PO daily (decreased from 180mg PO daily on 10/14/18 due to BP) - On Eliquis 2.5mg PO BID - Cardiology on consult, Dr Lujan, help appreciated Severe Aortic Stenosis - Dr. Lujan; cardiology; thank you for your help - On echo, severe valvular aortic stenosis, aortic valve area 0.76cm2 - Per narrow fabric loom fixer, patient possibly needs cardiac cath and TAVR; however, patie nt and family refuse at this time. - Continue medical management NSTEMI; resolved - Dr. Lujan; cardiology; thank you for your help - EKG showed Nonspecific t-wave abnormality - Troponins 0.1230, 0.1230, 0.0940 - Per narrow fabric loom fixer, patient possibly needs cardiac cath and TAVR; however, patient and family refuse at this time. Pneumonia - Patient started on Cefepime 1 gm Q12H and Vancomycin 1gm daily - CXR showed consolidation in right middle lobes and right lower lobe, patchy infiltrate in left lower lobe (see full report) - CT chest: bilateral lower lobe consolidation, adjacent interstitial changes. Prominent mediastinal lymph nodes. Ectasia of ascending thoracic aorta 3.7cm (see full report) - Antibiotics: Avelox 400mg PO daily x 5 days (last dose given on 10/08/18) - Zosyn 3.375 Q8H (active from 09/25/18-10/04/18) and Vancomycin 1g Q24H (active from 09/25/18-10/03/18) - Continue Florastor 250mg PO BID - Continue Mucinex 600mg PO BID, Duonebs 3ml INH RQ6H PRN shortness of breath - Tessalon Pearles 100mg PO TID for cough suppression - ID on consult, help appreciated Suicidal Ideation; resolved - Psych on consult, Dr Brown, help appreciated Hx of Dementia - Donepizil 5mg daily - Continue Seroquel 25mg PO BID prn for agitation - Dr. Brown; psychiatry; thank you for your help Hx of BPH - Continue Finasteride 5mg PO daily Hx of bacteremia; [place] [facility] [place] - Blood cultures (09/24/18): no growth after 5 days Hyperglycemia - Hemoglobin A1c 5.1 Prophylactic Measures - Eliquis 2.5 mg PO BID - hx of falls; fall precautions - PT/OT eval - Palliative care consulted for goals of care Patient is stable for discharge to [facility] per Dr. Norris. Patient must continue all medications. Patient is now taking Verapamil 120mg PO daily (discontinued verapamil 180mg PO daily) Patient must also continue antibiotics (Merrem 500mg IV Q8h and Vancomycin 1gm IV Q24hr) for 7 days, last dose to be given on 10/22/18. Patient must follow up with PMD, Dr. Norris, within 1 week of discharge. If symptoms worsen or reoccur, patient should return to nearest ED. Case discussed and patient seen with Dr Myrna Connelly, PGY2
[2018-10-15 08:02] LABS: BASO # 0.2 K/uL (0.0-0.2); BASO % 1.5 % (0.0-2.0); EOS # 0.2 K/uL (0.0-0.7); HEMOGLOBIN 9.8 g/dL (12.0-18.0); LYMPH # 1.4 K/uL (1.0-4.3); LYMPH % 13.3 % (20.0-40.0); MEAN CELL VOLUME 85.2 fL (80.0-94.0); MEAN CORPUSCULAR HEMOGLOBIN 27.1 pg (27.0-31.0); MEAN CORPUSCULAR HGB CONC 31.8 g/dL (33.0-37.0); MEAN PLATELET VOLUME 7.3 fL (7.2-11.7); MONO % 9.5 % (0.0-10.0); NEUT # 7.8 K/uL (1.8-7.0); NEUT % 73.7 % (50.0-75.0); RBC 3.63 Mil/uL (4.40-5.90); RED CELL DISTRIBUTION WIDTH 16.8 % (11.5-14.5); WHITE BLOOD COUNT 10.5 K/uL (4.8-10.8)
[2018-10-15 08:40] LABS: ALB/GLOB RATIO 0.8 (1.0-2.1); ALBUMIN 2.7 g/dL (3.5-5.0); ALT/SGPT 26 U/L (21-72); AST/SGOT 26 U/L (17-59); BLOOD UREA NITROGEN 35 mg/dL (9-20); CALCIUM 8.5 mg/dl (8.6-10.4); GFR NON-AFRICAN AMERICAN > 60
[2018-10-15] MEDS: Saccharomyces Boulardi 250 mg Cap PO SCH ×2 (09:42→17:55)
[2018-10-15] MEDS: (Novolog) Insulin Aspart, Recombinant 100 u/ml 10 ml vial SC SCH ×3 (09:42→17:55)
[2018-10-15] MEDS: Verapamil 120 mg ER Tab PO SCH (09:42)
[2018-10-15] MEDS: guaiFENesin 600 mg ER Tab PO SCH ×2 (09:42→17:55)
[2018-10-15] MEDS: Brimonidine 0.2% Opth Sol (5ml) OU SCH (09:43)
--- NOTE | 2018-10-15 11:42 | CP.PCM.CON ---
History of Present Illness - History of Present Illness History of Present Illness: Palliative consult requested by Doctor julianna Patel for goals of care discussion Patient is a 83 yo observed by bystander with weak, unsteady gait on the street. EMS called and patient admitted to this hospital for further treatment. per neighbor statement patient has had some weakness for about 3 days prior to admission on 09/24/18. Patient was ambulating using cane at home, but for the last 3 days he was using a walker. it is not clear where and how patient was given walker. In ED, CT head was negative bleeding. MRI head was significant for cystic encephalomacia. Psych. consult called and patient diagnosed with Delirium. Pneu monia diagnosed. Vanco and Merrem IV on board. Patient was planned for TAL much sooner in this stay, but his WBC went up 20'. patient diagnosed with sepsis after CANE PACKER called for BP 75/50 and HR 43. Patient's condition has much improved and he is planned for TAL today. palliative care asked to assist with Code status discussion before patient leaves. PMH: dementia, CVA, sepsis Soc. Hx: , has son and , lives at home, Danish speaking Fam. Hx: Unobtainable from patient at this time Review of Systems - Constitutional Constitutional: Weakness - EENT Eyes: absent: As Per HPI, Blind Spots, Blurred Vision, Change in Vision, Decreased Night Vision, Diplopia, Discharge, Dry Eye, Exophthalmos, Floaters, Irritation, Itchy Eyes, Loss of Peripheral Vision, Pain, Photophobia, Requires Corrective Lenses, Sees Flashes, Spots in Vision, Tunnel Vision, Other Visual Disturbances, Loss of Vision, Other Ears: absent: As Per HPI, Decreased Hearing, Ear Discharge, Ear Pain, Tinnitus, Abnormal Hearing, Disequilibrium, Dizziness, Other Nose/Mouth/Throat: absent: As Per HPI, Epistaxis, Nasal Congestion, Nasal Discharge, Nasal Obstruction, Nasal Trauma, Nose Pain, Post Nasal Drip, Sinus Pain, Sinus Pressure, Bleeding Gums, Change in Voice, Dental Pain, Dry Mouth, Dysphagia, Halitosis, Hoarsness, Lip Swelling, Mouth Lesions, Mouth Pain, Odynophagia, Sore Throat, Throat Swelling, Tongue Swelling, Facial Pain, Neck Pain, Neck Mass, Other - Cardiovascular Cardiovascular: Dyspnea on Exertion - Respiratory Respiratory: Cough, Dyspnea on Exertion - Gastrointestinal Gastrointestinal: absent: As Per HPI, Abdominal Pain, Belching, Bloating, Change in Bowel Habits, Change in Stool Character, Coffee Ground Emesis, Constipation, Cramping, Diarrhea, Dyspepsia, Dysphagia, Early Satiety, Excessive Flatus, Fecal Incontinence, Heartburn, Hematemesis, Hematochezia, Loose Stools, Melena, Nausea, Odynophagia, Temesmus, Vomiting, Other - Genitourinary Genitourinary: absent: As Per HPI, Change in Urinary Stream, Difficulty Urinating, Dysuria, Flank Pain, Hematuria, Pyuria, Nocturia, Urinary Incontinence, Urinary Frequency, Urinary Hesitance, Urinary Urgency, Voiding Freq/Small Amts, Freq UTI, Hx Renal/Bladder Calculi, Hx /Renal Surgery, Bladder Distension, Other - Musculoskeletal Musculoskeletal: Stiffness - Integumentary Integumentary: absent: As Per HPI, Acne, Alopecia, Bleeding Lesions, Change in Hair, Change in Nails, Change in Pigmentation, Changing Lesions, Dry Skin, Erythema, Furuncle, Hirsutism, Lesions, New Lesions, Non-Healing Lesions, Photosensitivity, Pruritus, Rash, Skin Pain, Skin Ulcer, Sores, Striae, Swelling, Unusual Bruising, Wounds, Jaundice, Other - Neurological Neurological: Confusion - Psychiatric Psychiatric: Difficulty Concentrating - Endocrine Endocrine: absent: As Per HPI, Change in Body Appearance, Change in Libido, Cold Intolorance, Deepening of Voice, Excessive Sweating, Fatigue, Flushing, Heat Intolorance, Increase in Ring/Shoe/Hat Size, Palpitations, Polydipsia, Polyphagia, Polyuria, Other - Hematologic/Lymphatic Hematologic: absent: As Per HPI, Easy Bleeding, Easy Bruising, Lymphadenopathy, Other Past Patient History - Past Medical History & Family History Past Medical History?: No - Past Social History Smoking Status: Unknown If Ever Smoked - CARDIAC Hx Pacemaker: No - HEMATOLOGICAL/ONCOLOGICAL Hx Cancer: No - MUSCULOSKELETAL/RHEUMATOLOGICAL Hx Falls: Yes - GENITOURINARY/GYNECOLOGICAL Hx Prostate Problems: Yes - PSYCHIATRIC Hx Substance Use: No - SURGICAL HISTORY Hx Mastectomy: No - ANESTHESIA Hx Anesthesia: Yes Hx Anesthesia Reactions: No Meds Home Medications: Home Medication List Medication Instructions Recorded Confirmed Type Albuterol/Ipratropium [Duoneb 3 3 ml INH RQ6 PRN neb 10/04/18 Rx mg/0.5 mg (3 ml) UD] Aspirin [Aspirin Chewable] 81 mg PO DAILY chew 10/04/18 Rx Donepezil [Aricept] 5 mg PO HS tab 10/04/18 Rx Finasteride [Proscar] 5 mg PO DAILY tab 10/04/18 Rx Latanoprost 0.005% Opht [Xalatan 0 ml OU HS bottle 10/04/18 Rx Opht] QUEtiapine [Seroquel] 25 mg PO BID PRN tab 10/04/18 Rx Rosuvastatin Calcium [Crestor] 10 mg PO HS tab 10/04/18 Rx Saccharomyces Boulardi [Florastor] 250 mg PO BID cap 10/04/18 Rx guaiFENesin [Mucinex LA] 600 mg PO BID tab 10/04/18 Rx Benzonatate [Tessalon Perles] 100 mg PO TID sgl 10/08/18 Rx Brimonidine 0.2% [Alphagan 0.2% 0 ml OU DAILY bottle 10/08/18 Rx Opht] Nicotine 21 mg/24 hr [Nicoderm Cq] 1 patch TD DAILY patch 10/08/18 Rx Albuterol/Ipratropium [Duoneb 3 3 ml INH RQ6 PRN neb 10/15/18 Rx mg/0.5 mg (3 ml) UD] Apixaban [Eliquis] 2.5 mg PO BID tab 10/15/18 Rx Meropenem [Merrem IV] 500 mg IVPB Q8H 7 Days vial 10/15/18 Rx Verapamil ER [Calan SR Tab] [address] 10/15/18 Rx Allergies/Adverse Reactions: Allergies Allergy/AdvReac Type Severity Reaction Status Date / Time No Known Allergies Allergy Verified 09/24/18 18:23 - Medications Medications: Current Medications Acetaminophen (Tylenol 325mg Tab) 650 mg PO Q6 PRN PRN Reason: Fever >100.4 F Last Admin: 10/02/18 00:14 Dose: 650 mg Albuterol/Ipratropium (Duoneb 3 Mg/0.5 Mg (3 Ml) Ud) 3 ml INH RQ6 PRN PRN Reason: Shortness of Breath Last Admin: 10/14/18 20:38 Dose: 3 ml Apixaban (Eliquis) 2.5 mg PO BID [facility] Last Admin: 10/15/18 09:42 Dose: 2.5 mg Aspirin (Aspirin Chewable) 81 mg PO DAILY [facility] Last Admin: 10/15/18 09:42 Dose: 81 mg Benzonatate (Tessalon Perles) 100 mg PO TID [facility] Last Admin: 10/15/18 09:42 Dose: 100 mg Brimonidine Tartrate (Alphagan 0.2% Opht) 0 ml OU DAILY [facility] Last Admin: 10/15/18 09:43 Dose: 2 drop Finasteride (Proscar) 5 mg PO DAILY [facility] Last Admin: 10/15/18 09:42 Dose: 5 mg Guaifenesin (Mucinex La) 600 mg PO BID [facility] Last Admin: 10/15/18 09:42 Dose: 600 mg Vancomycin/Sodium Chloride (Vancomycin 1 Gm/Ns 200 Ml) 1 gm in 200 mls @ 133.333 mls/hr IVPB Q24H [facility]; Protocol Last Admin: 10/14/18 13:01 Dose: 133.333 mls/hr Meropenem 500 mg/ Sodium (Chloride) 100 mls @ 100 mls/hr IVPB Q8H [facility]; Protocol Last Admin: 10/15/18 04:03 Dose: 100 mls/hr Insulin Aspart (Novolog) 0 unit SC ACHS [facility]; Protocol Last Admin: 10/15/18 09:42 Dose: Not Given Latanoprost (Xalatan Opht) 0 ml OU HS [facility] Last Admin: 10/14/18 22:21 Dose: 2.5 ml Nicotine (Nicoderm Cq) 1 patch TD DAILY [facility] Last Admin: 10/15/18 09:42 Dose: 1 patch Quetiapine Fumarate (Seroquel) 25 mg PO BID PRN PRN Reason: Agitation Last Admin: 10/04/18 20:36 Dose: 25 mg Rosuvastatin Calcium (Crestor) 10 mg PO HS [facility] Last Admin: 10/14/18 22:24 Dose: Not Given Saccharomyces Boulardii (Florastor) 250 mg PO BID [facility] Last Admin: 10/15/18 09:42 Dose: 250 mg Verapamil HCl (Calan Sr Tab) 120 mg PO DAILY [facility] Last Admin: 10/15/18 09:42 Dose: 120 mg Physical Exam - Constitutional Appears: Chronically Ill - Head Exam Head Exam: ATRAUMATIC, NORMAL INSPECTION, NORMOCEPHALIC - Eye Exam Eye Exam: EOMI, Normal appearance, PERRL Pupil Exam: NORMAL ACCOMODATION, PERRL - ENT Exam ENT Exam: Mucous Membranes Moist, Normal Exam - Neck Exam Neck exam: Positive for: Normal Inspection - Respiratory Exam Respiratory Exam: Decreased Breath Sounds, Rales, Rhonchi - Cardiovascular Exam Cardiovascular Exam: Tachycardia - GI/Abdominal Exam GI & Abdominal Exam: Normal Bowel Sounds, Soft - Rectal Exam Rectal Exam: Deferred - Extremities Exam Extremities exam: Positive for: normal inspection - Back Exam Back exam: NORMAL INSPECTION - Neurological Exam Neurological exam: Alert - Psychiatric Exam Psychiatric exam: Anxious, Normal Affect, Normal Mood - Skin Skin Exam: Dry, Intact, Normal Color, Warm Results - Vital Signs Recent Vital Signs: Last Vital Signs Temp 98.1 F 10/15/18 07:00 Pulse 74 10/15/18 07:21 Resp 20 10/15/18 07:00 BP 123/72 10/15/18 07:00 Pulse Ox 97 10/15/18 07:00 - Labs Result Diagrams: 10/15/18 07:55 10/15/18 07:56 Labs: Laboratory Results - last 24 hr 10/14/18 10/14/18 10/14/18 08:00 11:33 16:26 WBC RBC Hgb Hct MCV MCH MCHC RDW Plt Count MPV Neut % (Auto) Lymph % (Auto) Logan % (Auto) Eos % (Auto) Baso % (Auto) Neut # (Auto) Lymph # (Auto) Logan # (Auto) Eos # (Auto) Baso # (Auto) Sodium Potassium Chloride Carbon Dioxide Anion Gap BUN Creatinine Est GFR ( Amer) Est GFR (Non-Af Amer) POC Glucose (mg/dL) 114 H 159 H Random Glucose Calcium Phosphorus Magnesium Total Bilirubin AST ALT Alkaline Phosphatase Total Protein Albumin Globulin Albumin/Globulin Ratio Procalcitonin 2.06 H 10/14/18 10/15/18 10/15/18 21:26 06:52 07:55 WBC 10.5 RBC 3.63 L Hgb 9.8 L Hct 31.0 L MCV 85.2 MCH 27.1 MCHC 31.8 L RDW 16.8 H Plt Count 417 H MPV 7.3 Neut % (Auto) 73.7 Lymph % (Auto) 13.3 L Logan % (Auto) 9.5 Eos % (Auto) 2.0 Baso % (Auto) 1.5 Neut # (Auto) 7.8 H Lymph # (Auto) 1.4 Logan # (Auto) 1.0 H Eos # (Auto) 0.2 Baso # (Auto) 0.2 Sodium Potassium Chloride Carbon Dioxide Anion Gap BUN Creatinine Est GFR ( Amer) Est GFR (Non-Af Amer) POC Glucose (mg/dL) 156 H 124 H Random Glucose Calcium Phosphorus Magnesium Total Bilirubin AST ALT Alkaline Phosphatase Total Protein Albumin Globulin Albumin/Globulin Ratio Procalcitonin 10/15/18 07:56 WBC RBC Hgb Hct MCV MCH MCHC RDW Plt Count MPV Neut % (Auto) Lymph % (Auto) Logan % (Auto) Eos % (Auto) Baso % (Auto) Neut # (Auto) Lymph # (Auto) Logan # (Auto) Eos # (Auto) Baso # (Auto) Sodium 138 Potassium 4.2 Chloride 101 Carbon Dioxide 33 H Anion Gap 8 L BUN 35 H Creatinine 0.8 Est GFR ( Amer) > 60 Est GFR (Non-Af Amer) > 60 POC Glucose (mg/dL) Random Glucose 85 Calcium 8.5 L Phosphorus 2.8 Magnesium 2.2 Total Bilirubin 0.3 AST 26 ALT 26 Alkaline Phosphatase 75 Total Protein 6.3 Albumin 2.7 L Globulin 3.6 Albumin/Globulin Ratio 0.8 L Procalcitonin Assessment & Plan - Assessment and Plan (Free Text) Assessment: Palliative consult Full Code, there is no Advance Directive on chart, PPS 30% I reviewed all medical records and diagnostic studies, examined patient in the bed Patient is alert, with speech that is clear, Danish speaking only. Physical exam revealed elderly male in no acute distress, appearing his age. Breathing is r egular, diminished breath sounds, with moist, productive cough. o2Sat 96 % with NC. Abdomen soft, active bowel sounds. per nursing patient tolerates diet well. Patient is mostly on bed rest, needs assistance with ambulation. BP 132/72, HR 74, afebrile WBC 10.5, Albumin 2.7. Urine output is not documented. I discussed discharge plan to [facility] with Doctor Smith and she requested the Code status to be established before patient leaves today. Patient's and son were coming at noon time and I left interviewing patient for that time, when we all together couls discuss goals of care with use of Translation. I asked the Primary nurse to give me a call when family comes in. 2 pm Unfortunately I was not able to meet with family. Nobody picked up the phone, nor came to the hospital. ispoke to case packer and sealer on 6 T who aid that patient was scheduled for TAL at 4 pm today. Impression * Intermittent confusion * Cough 2nd to pneumonia * Risk for falls * Patient's wishes for end of life care are not known. I do not feel patient has capacity to make this decision alone. Family was not reachable today * Patient for TAL today Suggestion * Promote safety * Reorient patient as needed * Agree with TAL If family gets back to me before patient leaves I will discuss goals of care. Thank you for consulting Palliative Care
[2018-10-15] MEDS: Vancomycin 1 gm/NS 200 ml 1 GM/200 ML BAG IVPB SCH (12:22)
[2018-10-15 15:59] VITALS: BP 143/80; PULSE 66; TEMP 97.8; O2SAT 100
--- NOTE | 2018-10-15 18:34 | CP.PCM.PN ---
Subjective - Date & Time of Evaluation Date of Evaluation: 10/15/18 Time of Evaluation: 09:00 - Subjective Subjective: Patient requesting to go to rehab and states he is feeling well. He has no complaints today. Per nursing, no events overnight. Objective - Vital Signs/Intake and Output Vital Signs (last 24 hours): Temp Pulse Resp BP Pulse Ox 97.8 F 66 20 143/80 100 10/15/18 15:58 10/15/18 15:58 10/15/18 15:58 10/15/18 15:58 10/15/18 15:58 Intake and Output: 10/15/18 10/15/18 06:59 18:59 Intake Total 460 Balance 460 - Medications Medications: Current Medications Acetaminophen (Tylenol 325mg Tab) 650 mg PO Q6 PRN PRN Reason: Fever >100.4 F Last Admin: 10/02/18 00:14 Dose: 650 mg Albuterol/Ipratropium (Duoneb 3 Mg/0.5 Mg (3 Ml) Ud) 3 ml INH RQ6 PRN PRN Reason: Shortness of Breath Last Admin: 10/14/18 20:38 Dose: 3 ml Apixaban (Eliquis) 2.5 mg PO BID [facility] Last Admin: 10/15/18 17:55 Dose: 2.5 mg Aspirin (Aspirin Chewable) 81 mg PO DAILY [facility] Last Admin: 10/15/18 09:42 Dose: 81 mg Benzonatate (Tessalon Perles) 100 mg PO TID [facility] Last Admin: 10/15/18 17:55 Dose: 100 mg Brimonidine Tartrate (Alphagan 0.2% Opht) 0 ml OU DAILY [facility] Last Admin: 10/15/18 09:43 Dose: 2 drop Finasteride (Proscar) 5 mg PO DAILY [facility] Last Admin: 10/15/18 09:42 Dose: 5 mg Guaifenesin (Mucinex La) 600 mg PO BID [facility] Last Admin: 10/15/18 17:55 Dose: 600 mg Vancomycin/Sodium Chloride (Vancomycin 1 Gm/Ns 200 Ml) 1 gm in 200 mls @ 133.333 mls/hr IVPB Q24H [facility]; Protocol Last Admin: 10/15/18 12:22 Dose: 133.333 mls/hr Meropenem 500 mg/ Sodium (Chloride) 100 mls @ 100 mls/hr IVPB Q8H [facility]; Protocol Last Admin: 10/15/18 12:22 Dose: 100 mls/hr Insulin Aspart (Novolog) 0 unit SC ACHS [facility]; Protocol Last Admin: 10/15/18 17:55 Dose: Not Given Latanoprost (Xalatan Opht) 0 ml OU HS [facility] Last Admin: 10/14/18 22:21 Dose: 2.5 ml Nicotine (Nicoderm Cq) 1 patch TD DAILY [facility] Last Admin: 10/15/18 09:42 Dose: 1 patch Quetiapine Fumarate (Seroquel) 25 mg PO BID PRN PRN Reason: Agitation Last Admin: 10/04/18 20:36 Dose: 25 mg Rosuvastatin Calcium (Crestor) 10 mg PO HS [facility] Last Admin: 10/14/18 22:24 Dose: Not Given Saccharomyces Boulardii (Florastor) 250 mg PO BID [facility] Last Admin: 10/15/18 17:55 Dose: 250 mg Verapamil HCl (Calan Sr Tab) 120 mg PO DAILY [facility] Last Admin: 10/15/18 09:42 Dose: 120 mg - Labs Labs: 10/15/18 07:55 10/15/18 07:56 PT 14.8 SECONDS (9.7-12.2) H 10/11/18 12:37 INR 1.4 10/11/18 12:37 APTT 33 SECONDS (21-34) 10/11/18 12:37 - Constitutional Appears: Non-toxic, Chronically Ill - Head Exam Head Exam: NORMOCEPHALIC - Eye Exam Eye Exam: absent: Scleral icterus - ENT Exam ENT Exam: Mucous Membranes Dry - Neck Exam Neck Exam: absent: Lymphadenopathy - Respiratory Exam Respiratory Exam: Decreased Breath Sounds - Cardiovascular Exam Cardiovascular Exam: REGULAR RHYTHM - GI/Abdominal Exam GI & Abdominal Exam: Distended, Soft. absent: Tenderness - Rectal Exam Rectal Exam: Deferred - Exam Exam: NORMAL INSPECTION - Extremities Exam Extremities Exam: absent: Pedal Edema - Back Exam Back Exam: absent: CVA tenderness (L), CVA tenderness (R) Assessment and Plan (1) Sepsis Status: Acute (2) CVA (cerebral vascular accident) Status: Acute - Assessment and Plan (Free Text) Assessment: Patient requesting to go to rehab and states he is feeling well. He has no complaints today. d/c on iv antibiotics
--- NOTE | 2018-10-22 06:58 | DS ---
The patient admitted to the hospital with a chief complaint of weakness, fatigue, tiredness, and lethargy. The patient found to have a stroke. The patient was placed in ICU monitoring, supportive care. The patient developed fever, elevated white count, given IV antibiotic. The patient showed gradual improvement. Discharged, to be followed as an outpatient. Brian Norris MD
== END 2018-10-15 18:51 | DRG 64 ==
LOC: C.ER 17:15 → C.9E 21:13 → C.5S 09-25 00:54 → C.9I 10-02 21:19 → C.6T 10-05 01:38
PROVIDERS: ADMIT Internal Medicine Pulmonary Disease; ATTEND Internal Medicine Pulmonary Disease
PROC: 05H633Z Insertion of Infusion Device into Left Subclavian Vein, Percutaneous Approach (ICD-10-PCS; principal; 2018-10-15)
DX: I63.10 Cerebral infarction due to embolism of unspecified precerebral artery (principal); I21.4 Non-ST elevation (NSTEMI) myocardial infarction; J18.9 Pneumonia, unspecified organism; A41.9 Sepsis, unspecified organism; I48.92 Unspecified atrial flutter; G93.40 Encephalopathy, unspecified; J44.0 Chronic obstructive pulmonary disease with (acute) lower respiratory infection; N39.0 Urinary tract infection, site not specified; R45.851 Suicidal ideations; R64 Cachexia; Z68.1 Body mass index [BMI] 19.9 or less, adult; R29.701 NIHSS score 1; R47.01 Aphasia; I25.10 Atherosclerotic heart disease of native coronary artery without angina pectoris; I48.91 Unspecified atrial fibrillation; I10 Essential (primary) hypertension; F03.90 Unspecified dementia, unspecified severity, without behavioral disturbance, psychotic disturbance, mood disturbance, and anxiety; J43.9 Emphysema, unspecified; N40.0 Benign prostatic hyperplasia without lower urinary tract symptoms; Z51.5 Encounter for palliative care; Z79.01 Long term (current) use of anticoagulants; Z87.891 Personal history of nicotine dependence; Z91.81 History of falling; Z91.83 Wandering in diseases classified elsewhere; I35.0 Nonrheumatic aortic (valve) stenosis; H40.9 Unspecified glaucoma; E86.0 Dehydration

== ENCOUNTER 2018-12-16 02:46 | Inpatient (IN) | payer MEDICARE, OTHER ==
[2018-12-16] MEDS ORDERED: Meropenem 1 GM in Sodium Chloride 0.9% 100 ML IVPB ONE (03:57)
[2018-12-16] MEDS ORDERED: Sodium Chloride 0.9% 1,000 ML IV STA (04:17)
[2018-12-16] MEDS ORDERED: Sodium Chloride 0.9% 1,000 ML IV ONE (04:17)
[2018-12-16 04:18] LABS: VENOUS BLOOD GAS BASE EXCESS 6.9 mmol/L (0.0-2.0); VENOUS BLOOD GAS PCO2 46 mmHg (40-60); VENOUS BLOOD GAS PO2 28 mm/Hg (30-55); VENOUS BLOOD PH 7.45 (7.32-7.43)
[2018-12-16 04:26] LABS: BASO # 0.1 K/uL (0.0-0.2); BASO % 0.6 % (0.0-2.0); EOS % 0.1 % (0.0-4.0); HEMOGLOBIN 10.5 g/dL (12.0-18.0); LYMPH # 0.3 K/uL (1.0-4.3); LYMPH % 2.6 % (20.0-40.0); MEAN CELL VOLUME 87.3 fL (80.0-94.0); MEAN CORPUSCULAR HEMOGLOBIN 26.8 pg (27.0-31.0); MEAN CORPUSCULAR HGB CONC 30.7 g/dL (33.0-37.0); MEAN PLATELET VOLUME 7.1 fL (7.2-11.7); MONO # 0.5 K/uL (0.0-0.8); MONO % 4.2 % (0.0-10.0); NEUT # 10.3 K/uL (1.8-7.0); NEUT % 92.5 % (50.0-75.0); PLATELET COUNT 373 K/uL (130-400); RED CELL DISTRIBUTION WIDTH 19.6 % (11.5-14.5); WHITE BLOOD COUNT 11.2 K/uL (4.8-10.8)
[2018-12-16] MEDS ORDERED: Sodium Chloride 0.9% 2,000 ML ONE (04:28)
[2018-12-16 04:35] LABS: INR 1.1; PROTHROMBIN TIME 12.3 SECONDS (9.7-12.2)
[2018-12-16 04:47] LABS: ALBUMIN 3.4 g/dL (3.5-5.0); ALT/SGPT 20 U/L (21-72); AST/SGOT 31 U/L (17-59); BLOOD UREA NITROGEN 25 mg/dL (9-20); CALCIUM 8.9 mg/dl (8.6-10.4); GFR NON-AFRICAN AMERICAN > 60
--- NOTE | 2018-12-16 04:55 | C.PDOC ---
History Of Present Illness 83 year old male admitted in 09/2018 for two months, initially for CVA but also for pneumonia, went out to short term rehab and was discharged 2 weeks ago. Since then he as been at home, over the past 3 days he has had diarrhea, son reports it seems like he is having a hard time coughing and breath, today appeared to be shaking a lot, dehydrated, not taking fluids. Time Seen by Provider: 12/16/18 03:33 Chief Complaint (Nursing): GI Problem History Per: Family History/Exam Limitations: no limitations Onset/Duration Of Symptoms: Days (3) Current Symptoms Are (Timing): Still Present Associated Symptoms: Chills, Cough, Diarrhea Recent travel outside of the [place]: No Past Medical History Reviewed: Historical Data, Nursing Documentation, Vital Signs Vital Signs: Last Vital Signs Temp 102.2 F H 12/16/18 03:19 Pulse 111 H 12/16/18 03:19 Resp 22 12/16/18 03:19 BP 124/54 L 12/16/18 03:19 Pulse Ox 90 L 12/16/18 03:19 - Medical History PMH: Atrial Fibrillation, Dementia Denies: Diabetes, Deep Vein Thrombosis, Hepatitis, HIV, HTN, Seizures, Sexually Transmitted Disease Surgical History: Cholecystectomy Denies: Pacemaker - [facility] Procedures INSERTION OF INFUSION DEV INTO L SUBCLAV VEIN, PERC APPROACH (09/24/18) Family History: States: Unknown Family Hx - Social History Hx Alcohol Use: No Hx Substance Use: No - Immunization History Hx Tetanus Toxoid Vaccination: No Hx Influenza Vaccination: No Hx Pneumococcal Vaccination: No Review Of Systems Constitutional: Positive for: Fever, Chills Eyes: Negative for: Pain, Redness ENT: Negative for: Mouth Swelling Cardiovascular: Negative for: Chest Pain, Palpitations Respiratory: Positive for: Cough, Shortness of Breath Gastrointestinal: Positive for: Diarrhea. Negative for: Nausea, Vomiting Genitourinary: Negative for: Dysuria, Hematuria Musculoskeletal: Negative for: Back Pain Skin: Negative for: Rash Neurological: Negative for: Weakness, Numbness Physical Exam - Physical Exam Appears: Other (Emaciated) Skin: Other (Hot to touch) Head: Atraumatic, Normacephalic Eye(s): bilateral: Normal Inspection, PERRL, EOMI Ear(s): Bilateral: Normal Nose: Normal Oral Mucosa: Dry Throat: Normal (No swelling or injection), No Exudate Neck: Normal ROM, Supple Chest: Symmetrical Cardiovascular: Rhythm Regular Respiratory: Other (Right lung field with decreased air movement and rales) Gastrointestinal/Abdominal: Soft, No Tenderness, No Distention Male Genital: Other (Feces on groin area) Neurological/Psych: Other (Responds to painful stimuli, not verbalizing much but cooperative with commands) ED Course And Treatment - Laboratory Results Result Diagrams: 12/18/18 06:35 12/18/18 06:35 Lab Results: pO2 28 mm/Hg (30-55) L 12/16/18 04:10 VBG pH 7.45 (7.32-7.43) H 12/16/18 04:10 VBG pCO2 46 mmHg (40-60) 12/16/18 04:10 VBG HCO3 29.2 mmol/L 12/16/18 04:10 VBG Total CO2 33.4 mmol/L (22-28) H 12/16/18 04:10 VBG O2 Sat (Calc) 50.4 % (40-65) 12/16/18 04:10 VBG Base Excess 6.9 mmol/L (0.0-2.0) H 12/16/18 04:10 VBG Potassium 4.4 mmol/L (3.6-5.2) 12/16/18 04:10 Sodium 144.0 mmol/l (132-148) 12/16/18 04:10 Chloride 114.0 mmol/L (98-107) H 12/16/18 04:10 Glucose 90 mg/dl (75-110) 12/16/18 04:10 Lactate 3.9 mmol/L (0.7-2.1) H 12/16/18 04:10 PT 12.3 SECONDS (9.7-12.2) H 12/16/18 04:22 INR 1.1 12/16/18 04:22 APTT 29 SECONDS (21-34) 12/16/18 04:22 Total Bilirubin 0.6 mg/dL (0.2-1.3) 12/16/18 04:22 AST 31 U/L (17-59) 12/16/18 04:22 ALT 20 U/L (21-72) L D 12/16/18 04:22 Alkaline Phosphatase 162 U/L (38-126) H 12/16/18 04:22 Total Protein 6.9 g/dL (6.3-8.3) 12/16/18 04:22 Albumin 3.4 g/dL (3.5-5.0) L D 12/16/18 04:22 Globulin 3.5 gm/dL (2.2-3.9) 12/16/18 04:22 Albumin/Globulin Ratio 1.0 (1.0-2.1) 12/16/18 04:22 O2 Sat by Pulse Oximetry: 90 (Room air) Pulse Ox Interpretation: Abnormal Medical Decision Making Medical Decision Making: Patient accepted under Dr. Jose R Mayorga's service. Disposition - Disposition Disposition: HOME/ ROUTINE Disposition Time: 17:15 Condition: GUARDED - Clinical Impression Clinical Impression: Sepsis, Hospital acquired PNA - PA / BIOMEDICAL EQUIPMENT TECH / Resident Statement MD/DO has reviewed & agrees with the documentation as recorded. - Scribe Statement The provider has reviewed the documentation as recorded by the Scribe Jerardo Millan All medical record entries made by the Scribe were at my direction and personally dictated by me. I have reviewed the chart and agree that the record accurately reflects my personal performance of the history, physical exam, medical decision making, and the department course for this patient. I have also personally directed, reviewed, and agree with the discharge instructions and disposition. Decision To Admit - Pt Status Changed To: Hospital Disposition Of: Inpatient - Admit Certification Admit to Inpatient:: After my assessment, the patient will require hospital ization for at least two midnights. This is because of the severity of symptoms shown, intensity of services needed, and/or the medical risk in this patient being treated as an outpatient. - InPatient: Physician Admission Certification:: this patient will require more than 2 nights of inpatient treatment - . Bed Request Type: Telemetry Admitting Physician: Brian Norris Patient Diagnosis: Sepsis, Hospital acquired PNA
[2018-12-16] MEDS ORDERED: Sodium Chloride 0.9% 1,000 ML ONE (05:14)
[2018-12-16] MEDS ORDERED: Vancomycin 1 GM 1 GM/250 ML BAG IVPB ONE (05:14)
[2018-12-16 06:34] LABS: VENOUS BLOOD GAS BASE EXCESS 5.3 mmol/L (0.0-2.0); VENOUS BLOOD GAS PCO2 54 mmHg (40-60); VENOUS BLOOD GAS PO2 22 mm/Hg (30-55); VENOUS BLOOD PH 7.38 (7.32-7.43)
[2018-12-16 06:35] LABS: BANDS 3 % (0-2); LYMPHOCYTE 2 % (20-40); MONOCYTE 9 % (0-10); NEUTROPHIL 85 % (50-75); PLASMACYTES 1 (0-0); PLATELET ESTIMATE NORMAL (NORMAL); TOTAL CELLS COUNTED 100
[2018-12-16] MEDS: Albuterol-Ipratrop 3 mg / 0.5 (3 ml) UD INH SCH ×5 (07:34→23:58)
--- NOTE | 2018-12-16 07:56 | RAD ---
Date of service: 12/16/2018 HISTORY: Sepsis Patient COMPARISON: October 2018 FINDINGS: LUNGS: Interval increased coalescent airspace opacities in the right lung with relative 1/3 right upper lung zone sparing. The asymmetrically elevated right hemidiaphragm is as before. No interval change in the minimal prominence of the left interstitial lung markings. PLEURA: Minimal right pleural effusion and/or thickening probable. No pneumothorax seen. CARDIOVASCULAR: There is presence of aortic atherosclerotic calcification on x-ray. Mild cardiomegaly-similar Mild concomitant pulmonary venous congestion-possibly chronic not excluded. OSSEOUS STRUCTURES: Thoracic spondylosis. Bilateral shoulder arthrosis right greater than left. VISUALIZED UPPER ABDOMEN: Normal. OTHER FINDINGS: None. IMPRESSION: Interval worsening infiltrate coalescent right lung . Other findings as above.
[2018-12-16] MEDS ORDERED: Azithromycin 500 MG in Sodium Chloride 0.9% 250 ML IVPB SCH (10:00)
[2018-12-16] MEDS: Dextrose 5%/0.45% NS 1,000 ML IV SCH ×2 (11:11→16:30)
--- NOTE | 2018-12-16 11:33 | CP.PCM.HP ---
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 Patient then was at [facility] and discharged home about 2 weeks ago. Patient brought in for fevers, diarrhea and shortness of breath. Today patient tells me he is feeling great and his health is good. Patient has no complaints. Patient denies headache, chest pain, abdominal pain, nausea, vomiting, constipation, or diarrhea. PMHx obtained from patient and prior admissions. All: NKDA PMHx: a fib, severe aortic stenosis, dementia, glaucoma Surg hx: cholecystectomy, hernia repair Social: denies (poor historian) lives with who also has dementia Past Patient History - Past Medical History & Family History Past Medical History?: No - Past Social History Smoking Status: Never Smoked - CARDIAC Hx Atrial Fibrillation: Yes Hx Hypertension: No Hx Pacemaker: No - PULMONARY Hx Tuberculosis: No - NEUROLOGICAL Hx Dementia: Yes Hx Seizures: No - HEENT Hx Glaucoma: Yes - HEMATOLOGICAL/ONCOLOGICAL Hx Human Immunodeficiency Virus (HIV): No - MUSCULOSKELETAL/RHEUMATOLOGICAL Hx Falls: Yes - GASTROINTESTINAL Other/Comment: liver abscess - GENITOURINARY/GYNECOLOGICAL Hx Sexually Transmitted Disorders: No - PSYCHIATRIC Hx Substance Use: No - SURGICAL HISTORY Hx Cholecystectomy: Yes - ANESTHESIA Hx Anesthesia: Yes Hx Anesthesia Reactions: No Meds Allergies/Adverse Reactions: Allergies Allergy/AdvReac Type Severity Reaction Status Date / Time No Known Allergies Allergy Verified 12/16/18 03:29 Results - Vital Signs Recent Vital Signs: Last Vital Signs Temp 98.5 F 12/16/18 08:00 Pulse 82 12/16/18 08:00 Resp 20 12/16/18 08:00 BP 147/90 12/16/18 08:00 Pulse Ox 97 12/16/18 08:00 - Labs Result Diagrams: 12/16/18 04:22 12/16/18 04:22 Labs: Laboratory Results - last 24 hr 12/16/18 12/16/18 12/16/18 04:10 04:22 04:22 WBC 11.2 H RBC 3.90 L Hgb 10.5 L Hct 34.1 L MCV 87.3 D MCH 26.8 L MCHC 30.7 L RDW 19.6 H Plt Count 373 MPV 7.1 L Neut % (Auto) 92.5 H Lymph % (Auto) 2.6 L Wetzel % (Auto) 4.2 Eos % (Auto) 0.1 Baso % (Auto) 0.6 Neut # (Auto) 10.3 H Lymph # (Auto) 0.3 L Wetzel # (Auto) 0.5 Eos # (Auto) 0.0 Baso # (Auto) 0.1 Neutrophils % (Manual) 85 H Band Neutrophils % 3 H Lymphocytes % (Manual) 2 L Monocytes % (Manual) 9 Plasma Cell % (Manual) 1 H Platelet Estimate Normal PT 12.3 H INR 1.1 APTT 29 pO2 28 L VBG pH 7.45 H VBG pCO2 46 VBG HCO3 29.2 VBG Total CO2 33.4 H VBG O2 Sat (Calc) 50.4 VBG Base Excess 6.9 H VBG Potassium 4.4 Sodium 144.0 Chloride 114.0 H Glucose 90 Lactate 3.9 H Potassium Carbon Dioxide Anion Gap BUN Creatinine Est GFR ( Amer) Est GFR (Non-Af Amer) Random Glucose Calcium Phosphorus Magnesium Total Bilirubin AST ALT Alkaline Phosphatase Total Protein Albumin Globulin Albumin/Globulin Ratio Venous Blood Potassium 4.4 Influenza Typ A,B (EIA) 12/16/18 12/16/18 12/16/18 04:22 05:03 06:30 WBC RBC Hgb Hct MCV MCH MCHC RDW Plt Count MPV Neut % (Auto) Lymph % (Auto) Wetzel % (Auto) Eos % (Auto) Baso % (Auto) Neut # (Auto) Lymph # (Auto) Wetzel # (Auto) Eos # (Auto) Baso # (Auto) Neutrophils % (Manual) Band Neutrophils % Lymphocytes % (Manual) Monocytes % (Manual) Plasma Cell % (Manual) Platelet Estimate PT INR APTT pO2 22 L VBG pH 7.38 VBG pCO2 54 VBG HCO3 27.4 VBG Total CO2 33.6 H VBG O2 Sat (Calc) 31.4 L VBG Base Excess 5.3 H VBG Potassium 4.3 Sodium 141 145.0 Chloride 104 117.0 H Glucose 80 Lactate 1.6 Potassium 3.9 Carbon Dioxide 31 H Anion Gap 10 BUN 25 H Creatinine 0.6 L Est GFR ( Amer) > 60 Est GFR (Non-Af Amer) > 60 Random Glucose 94 Calcium 8.9 Phosphorus 2.7 Magnesium 1.9 Total Bilirubin 0.6 AST 31 ALT 20 L D Alkaline Phosphatase 162 H Total Protein 6.9 Albumin 3.4 L D Globulin 3.5 Albumin/Globulin Ratio 1.0 Venous Blood Potassium 4.3 Influenza Typ A,B (EIA) Negative for flu a/b
--- NOTE | 2018-12-16 11:35 | CP.PCM.PN ---
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 Patient then was at [facility] and discharged home about 2 weeks ago. Patient brought in for fevers, diarrhea and shortness of breath. Today patient tells me he is feeling great and his health is good. Patient has no complaints. Patient denies headache, chest pain, abdominal pain, nausea, vomiting, constipation, or diarrhea. PMHx obtained from patient and prior admissions. All: NKDA PMHx: a fib, severe aortic stenosis, dementia, glaucoma Surg hx: cholecystectomy, hernia repair Social: denies (poor historian) lives with who also has dementia Objective - Vital Signs/Intake and Output Vital Signs (last 24 hours): Temp Pulse Resp BP Pulse Ox 98.5 F 82 20 147/90 97 12/16/18 08:00 12/16/18 08:00 12/16/18 08:00 12/16/18 08:00 12/16/18 08:00 - Medications Medications: Current Medications Acetaminophen (Tylenol 325mg Tab) 650 mg PO Q6 PRN PRN Reason: Fever >100.4 F Albuterol/Ipratropium (Duoneb 3 Mg/0.5 Mg (3 Ml) Ud) 3 ml INH RQ4 [facility] Albuterol/Ipratropium (Duoneb 3 Mg/0.5 Mg (3 Ml) Ud) 3 ml INH RQ6 PRN PRN Reason: Shortness of Breath Apixaban (Eliquis) 2.5 mg PO BID [facility] Donepezil HCl (Aricept) 5 mg PO HS [facility] Finasteride (Proscar) 5 mg PO DAILY [facility] Ceftriaxone Sodium 1 gm/ (Sodium Chloride) 100 mls @ 100 mls/hr IVPB DAILY [facility]; Protocol Last Admin: 12/16/18 11:02 Dose: 100 mls/hr Vancomycin HCl 1,000 mg/ (Sodium Chloride) 250 mls @ 166.6 mls/hr IVPB Q12H [facility]; Protocol Last Admin: 12/16/18 06:29 Dose: Not Given Dextrose/Sodium Chloride (Dextrose 5%/0.45% Ns 1000 Ml) 1,000 mls @ 100 mls/hr IV .Q10H [facility] Last Admin: 12/16/18 11:11 Dose: 100 mls/hr Azithromycin 500 mg/ Sodium (Chloride) 250 mls @ 250 mls/hr IVPB 1600 [facility]; Protocol Latanoprost (Xalatan Opht) ml OU HS [facility] Rosuvastatin Calcium (Crestor) 10 mg PO HS [facility] Saccharomyces Boulardii (Florastor) 250 mg PO BID [facility] Verapamil HCl (Calan Sr Tab) 120 mg PO DAILY [facility] - Labs Labs: 12/16/18 04:22 12/16/18 04:22 PT 12.3 SECONDS (9.7-12.2) H 12/16/18 04:22 INR 1.1 12/16/18 04:22 APTT 29 SECONDS (21-34) 12/16/18 04:22
--- NOTE | 2018-12-16 11:41 | CP.PCM.PN ---
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 Patient then was at [facility] and discharged home about 2 weeks ago. Patient brought in for fevers, diarrhea and shortness of breath. Today patient tells me he is feeling great and his health is good. Patient has no complaints. Patient denies headache, chest pain, abdominal pain, nausea, vomiting, constipation, or diarrhea. PMHx obtained from patient and prior admissions. All: NKDA PMHx: a fib, severe aortic stenosis, dementia, glaucoma Surg hx: cholecystectomy, hernia repair Social: denies (poor historian) lives with who also has dementia Objective - Vital Signs/Intake and Output Vital Signs (last 24 hours): Temp Pulse Resp BP Pulse Ox 98.5 F 82 20 147/90 97 12/16/18 08:00 12/16/18 08:00 12/16/18 08:00 12/16/18 08:00 12/16/18 08:00 - Medications Medications: Current Medications Acetaminophen (Tylenol 325mg Tab) 650 mg PO Q6 PRN PRN Reason: Fever >100.4 F Albuterol/Ipratropium (Duoneb 3 Mg/0.5 Mg (3 Ml) Ud) 3 ml INH RQ4 [facility] Albuterol/Ipratropium (Duoneb 3 Mg/0.5 Mg (3 Ml) Ud) 3 ml INH RQ6 PRN PRN Reason: Shortness of Breath Apixaban (Eliquis) 2.5 mg PO BID [facility] Donepezil HCl (Aricept) 5 mg PO HS [facility] Finasteride (Proscar) 5 mg PO DAILY [facility] Ceftriaxone Sodium 1 gm/ (Sodium Chloride) 100 mls @ 100 mls/hr IVPB DAILY [facility]; Protocol Last Admin: 12/16/18 11:02 Dose: 100 mls/hr Vancomycin HCl 1,000 mg/ (Sodium Chloride) 250 mls @ 166.6 mls/hr IVPB Q12H [facility]; Protocol Last Admin: 12/16/18 06:29 Dose: Not Given Dextrose/Sodium Chloride (Dextrose 5%/0.45% Ns 1000 Ml) 1,000 mls @ 100 mls/hr IV .Q10H [facility] Last Admin: 12/16/18 11:11 Dose: 100 mls/hr Azithromycin 500 mg/ Sodium (Chloride) 250 mls @ 250 mls/hr IVPB 1600 [facility]; Protocol Latanoprost (Xalatan Opht) 0.05 ml OU HS [facility] Rosuvastatin Calcium (Crestor) 10 mg PO HS [facility] Saccharomyces Boulardii (Florastor) 250 mg PO BID [facility] Verapamil HCl (Calan Sr Tab) 120 mg PO DAILY [facility] - Labs Labs: 12/16/18 04:22 12/16/18 04:22 PT 12.3 SECONDS (9.7-12.2) H 12/16/18 04:22 INR 1.1 12/16/18 04:22 APTT 29 SECONDS (21-34) 12/16/18 04:22 - Constitutional Appears: Non-toxic, No Acute Distress, Confused - Head Exam Head Exam: ATRAUMATIC, NORMAL INSPECTION, NORMOCEPHALIC - Eye Exam Eye Exam: EOMI, Normal appearance - ENT Exam ENT Exam: Mucous Membranes Moist - Respiratory Exam Respiratory Exam: Rhonchi, NORMAL BREATHING PATTERN. absent: Clear to Ausculation Bilateral - Cardiovascular Exam Cardiovascular Exam: RRR, +S1, +S2 - GI/Abdominal Exam GI & Abdominal Exam: Soft, Normal Bowel Sounds - Extremities Exam Extremities Exam: Normal Inspection. absent: Pedal Edema, Tenderness - Neurological Exam Neurological Exam: Alert, Awake, Oriented x3 - Psychiatric Exam Psychiatric exam: Normal Affect, Normal Mood - Skin Skin Exam: Intact, Normal Color, Warm Assessment and Plan - Assessment and Plan (Free Text) Assessment: Health Care Associated Pneumonia Cxray (12/16/18): interval worsening infiltrate coalescent right lung flu negative lactate on admission 3.9, decreased to 1.6 meds: Vancomycin 1000mg ivpb q12h Azithromycin 500mg ivpb daily Rocephin 1 gm ivpb daily Florastor 250mg po BID Duonebs q4h [facility], q6h prn Tylenol 650mg po q6h prn Afib Eliquis 2.5mg po BID Verapamil 120mg po daily Dementia Aricept 5mg po HS Ativan 1mg po q12h prn for agitation BPH Proscar 5mg po daily Glaucoma Latanoprost .05 OU HS Hx CVA Crestor 10mg po HS Prophylaxis on Eliquis, SCDs D5 1/2 NS at 100cc/hr Patient seen and discussed with Dr. Norris
[2018-12-16] MEDS: Saccharomyces Boulardi 250 mg Cap PO SCH ×2 (12:37→17:40)
[2018-12-16] MEDS: Verapamil 120 mg ER Tab PO SCH (12:37)
[2018-12-16] MEDS ORDERED: Albuterol-Ipratrop 3 mg / 0.5 (3 ml) UD INH PRN (14:00)
[2018-12-16] MEDS: Azithromycin 500 MG in Sodium Chloride 0.9% 250 ML IVPB SCH (17:40)
--- NOTE | 2018-12-16 19:21 | CP.PCM.CON ---
History of Present Illness - History of Present Illness History of Present Illness: 83 year old male admitted in 09/2018 , initially for CVA but also for pneumonia, went out to short term rehab and was discharged 2 weeks ago. Admitted with cough congestion and fever with some diarrhea reported ID consulted for this Poor historian confused NAD - Medical History PMH: Atrial Fibrillation, Dementia Denies: Diabetes, Deep Vein Thrombosis, Hepatitis, HIV, HTN, Seizures, S exually Transmitted Disease Surgical History: Cholecystectomy Denies: Pacemaker - [facility] Procedures INSERTION OF INFUSION DEV INTO L SUBCLAV VEIN, PERC APPROACH (09/24/18) Review of Systems - Review of Systems Systems not reviewed;Unavailable: Altered Mental Status - Constitutional Constitutional: As Per HPI - EENT Eyes: absent: As Per HPI, Blind Spots, Blurred Vision, Change in Vision, Decreas ed Night Vision, Diplopia, Discharge, Dry Eye, Exophthalmos, Floaters, Irritation, Itchy Eyes, Loss of Peripheral Vision, Pain, Photophobia, Requires Corrective Lenses, Sees Flashes, Spots in Vision, Tunnel Vision, Other Visual Disturbances, Loss of Vision, Other Ears: absent: As Per HPI, Decreased Hearing, Ear Discharge, Ear Pain, Tinnitus, Abnormal Hearing, Disequilibrium, Dizziness, Other Nose/Mouth/Throat: absent: As Per HPI, Epistaxis, Nasal Congestion, Nasal Discharge, Nasal Obstruction, Nasal Trauma, Nose Pain, Post Nasal Drip, Sinus Pain, Sinus Pressure, Bleeding Gums, Change in Voice, Dental Pain, Dry Mouth, Dysphagia, Halitosis, Hoarsness, Lip Swelling, Mouth Lesions, Mouth Pain, Odynophagia, Sore Throat, Throat Swelling, Tongue Swelling, Facial Pain, Neck Pain, Neck Mass, Other - Cardiovascular Cardiovascular: As Per HPI - Respiratory Respiratory: As Per HPI, Cough, Dyspnea - Gastrointestinal Gastrointestinal: absent: As Per HPI, Abdominal Pain, Belching, Bloating, Change in Bowel Habits, Change in Stool Character, Coffee Ground Emesis, Constipation, Cramping, Diarrhea, Dyspepsia, Dysphagia, Early Satiety, Excessive Flatus, Fecal Incontinence, Heartburn, Hematemesis, Hematochezia, Loose Stools, Melena, Nausea, Odynophagia, Temesmus, Vomiting, Other - Genitourinary Genitourinary: absent: As Per HPI, Change in Urinary Stream, Difficulty Urinating, Dysuria, Flank Pain, Hematuria, Pyuria, Nocturia, Urinary Incontinence, Urinary Frequency, Urinary Hesitance, Urinary Urgency, Voiding Freq/Small Amts, Freq UTI, Hx Renal/Bladder Calculi, Hx /Renal Surgery, Bladde r Distension, Other - Musculoskeletal Musculoskeletal: absent: As Per HPI, Abnormal Gait, Arthralgias, Atrophy, Back Pain, Deformity, Joint Swelling, Limited Range of Motion, Loss of Height, Muscle Cramps, Muscle Weakness, Myalgias, Neck Pain, Numbness, Radiating Pain into Limb, Stiffness, Tingling, Other - Integumentary Integumentary: absent: As Per HPI, Acne, Alopecia, Bleeding Lesions, Change in Hair, Change in Nails, Change in Pigmentation, Changing Lesions, Dry Skin, Erythema, Furuncle, Hirsutism, Lesions, New Lesions, Non-Healing Lesions, Photosensitivity, Pruritus, Rash, Skin Pain, Skin Ulcer, Sores, Striae, Swelling, Unusual Bruising, Wounds, Jaundice, Other - Neurological Neurological: As Per HPI, Abnormal Gait, Behavioral Changes - Psychiatric Psychiatric: absent: As Per HPI, Abnormal Sleep Pattern, Anhedonia, Anxiety, Aud itory Hallucinations, Behavioral Changes, Change in Appetite, Change in Libido, Confusion, Depression, Difficulty Concentrating, Hallucinations, Homicidal Ideation, Hopelessness, Irritability, Memory Loss, Mood Swings, Panic Attacks, Paranoia, Suicidal Ideation, Visual Hallucinations, Tactile Hallucinations, Other - Endocrine Endocrine: absent: As Per HPI, Change in Body Appearance, Change in Libido, Cold Intolorance, Deepening of Voice, Excessive Sweating, Fatigue, Flushing, Heat Intolorance, Increase in Ring/Shoe/Hat Size, Palpitations, Polydipsia, Poly phagia, Polyuria, Other - Hematologic/Lymphatic Hematologic: absent: As Per HPI, Easy Bleeding, Easy Bruising, Lymphadenopathy, Other Past Patient History - Past Medical History & Family History Past Medical History?: No - Past Social History Smoking Status: Unknown If Ever Smoked - CARDIAC Hx Cardiac Disorders: Yes Hx Hypertension: No - PULMONARY Hx Respiratory Disorders: No Hx Tuberculosis: No - NEUROLOGICAL HX Cerebrovascular Accident: Yes - HEENT Hx HEENT Problems: Yes Hx Glaucoma: Yes - RENAL Hx Chronic Kidney Disease: No - ENDOCRINE/METABOLIC Hx Endocrine Disorders: No - HEMATOLOGICAL/ONCOLOGICAL Hx Blood Disorders: No Hx Human Immunodeficiency Virus (HIV): No - INTEGUMENTARY Hx Dermatological Problems: No - MUSCULOSKELETAL/RHEUMATOLOGICAL Hx Falls: Yes - GASTROINTESTINAL Hx Gastrointestinal Disorders: Yes Other/Comment: liver abscess - GENITOURINARY/GYNECOLOGICAL Hx Genitourinary Disorders: No Hx Sexually Transmitted Disorders: No - PSYCHIATRIC Hx Psychophysiologic Disorder: No Hx Substance Use: No - SURGICAL HISTORY Hx Surgeries: Yes Hx Cholecystectomy: Yes - ANESTHESIA Hx Anesthesia: Yes Hx Anesthesia Reactions: No Hx Malignant Hyperthermia: No Has any member of the family had a problem w/ anesthesia?: No Meds Allergies/Adverse Reactions: Allergies Allergy/AdvReac Type Severity Reaction Status Date / Time No Known Allergies Allergy Verified 12/16/18 03:29 - Medications Medications: Current Medications Acetaminophen (Tylenol 325mg Tab) 650 mg PO Q6 PRN PRN Reason: Fever >100.4 F Albuterol/Ipratropium (Duoneb 3 Mg/0.5 Mg (3 Ml) Ud) 3 ml INH RQ4 [facility] Last Admin: 12/16/18 13:34 Dose: 3 ml Albuterol/Ipratropium (Duoneb 3 Mg/0.5 Mg (3 Ml) Ud) 3 ml INH RQ6 PRN PRN Reason: Shortness of Breath Apixaban (Eliquis) 2.5 mg PO BID [facility] Last Admin: 12/16/18 17:40 Dose: 2.5 mg Donepezil HCl (Aricept) 5 mg PO HS [facility] Finasteride (Proscar) 5 mg PO DAILY [facility] Last Admin: 12/16/18 12:37 Dose: 5 mg Ceftriaxone Sodium 1 gm/ (Sodium Chloride) 100 mls @ 100 mls/hr IVPB DAILY [facility]; Protocol Last Admin: 12/16/18 11:02 Dose: 100 mls/hr Vancomycin HCl 1,000 mg/ (Sodium Chloride) 250 mls @ 166.6 mls/hr IVPB Q12H [facility]; Protocol Last Admin: 12/16/18 19:20 Dose: 166.6 mls/hr Dextrose/Sodium Chloride (Dextrose 5%/0.45% Ns 1000 Ml) 1,000 mls @ 100 mls/hr IV .Q10H [facility] Last Admin: 12/16/18 11:11 Dose: 100 mls/hr Azithromycin 500 mg/ Sodium (Chloride) 250 mls @ 250 mls/hr IVPB 1600 [facility]; Protocol Last Admin: 12/16/18 17:40 Dose: 250 mls/hr Influenza Virus Vaccine (Flucelvax Quad 2644-9838 Syr) 60 mcg IM .ONCE ONE Stop: 12/19/18 10:01 Latanoprost (Xalatan Opht) 0.05 ml OU HS [facility] Lorazepam (Ativan) 1 mg PO Q12H PRN PRN Reason: Agitation Pneumococcal Polyvalent Vaccine (Pneumovax 23 Vaccine) 0.5 ml IM .ONCE ONE Stop: 12/19/18 10:01 Rosuvastatin Calcium (Crestor) 10 mg PO HS [facility] Saccharomyces Boulardii (Florastor) 250 mg PO BID [facility] Last Admin: 12/16/18 17:40 Dose: 250 mg Verapamil HCl (Calan Sr Tab) 120 mg PO DAILY [facility] Last Admin: 12/16/18 12:37 Dose: 120 mg Physical Exam - Constitutional Appears: Confused, Cachectic, Chronically Ill - Head Exam Head Exam: ATRAUMATIC, NORMAL INSPECTION, NORMOCEPHALIC - Eye Exam Eye Exam: absent: Nystagmus, Scleral icterus Pupil Exam: NORMAL ACCOMODATION - ENT Exam ENT Exam: Mucous Membranes Dry, Mucous Membranes Moist, Normal External Ear Exam - Neck Exam Neck exam: Negative for: Lymphadenopathy, Thyromegaly - Respiratory Exam Respiratory Exam: Decreased Breath Sounds, Prolonged Expiratory Phase, Rhonchi - Cardiovascular Exam Cardiovascular Exam: REGULAR RHYTHM, +S1, +S2 - GI/Abdominal Exam GI & Abdominal Exam: Diminished Bowel Sounds, Soft. absent: Tenderness - Rectal Exam Rectal Exam: Deferred - Exam Exam: NORMAL INSPECTION - Extremities Exam Extremities exam: Negative for: calf tenderness, pedal edema - Back Exam Back exam: absent: CVA tenderness (L), CVA tenderness (R), paraspinal tenderness - Neurological Exam Neurological exam: Alert, Altered, CN II-XII Intact, Motor Sensory Deficit - Psychiatric Exam Psychiatric exam: Depressed - Skin Skin Exam: Dry Results - Vital Signs Recent Vital Signs: Last Vital Signs Temp 98.5 F 12/16/18 08:00 Pulse 82 12/16/18 08:00 Resp 20 12/16/18 08:00 BP 147/90 12/16/18 08:00 Pulse Ox 97 12/16/18 08:00 - Labs Result Diagrams: 12/16/18 04:22 12/16/18 04:22 Labs: Laboratory Results - last 24 hr 12/16/18 12/16/18 12/16/18 04:10 04:22 04:22 WBC 11.2 H RBC 3.90 L Hgb 10.5 L Hct 34.1 L MCV 87.3 D MCH 26.8 L MCHC 30.7 L RDW 19.6 H Plt Count 373 MPV 7.1 L Neut % (Auto) 92.5 H Lymph % (Auto) 2.6 L [place] % (Auto) 4.2 Eos % (Auto) 0.1 Baso % (Auto) 0.6 Neut # (Auto) 10.3 H Lymph # (Auto) 0.3 L [place] # (Auto) 0.5 Eos # (Auto) 0.0 Baso # (Auto) 0.1 Neutrophils % (Manual) 85 H Band Neutrophils % 3 H Lymphocytes % (Manual) 2 L Monocytes % (Manual) 9 Plasma Cell % (Manual) 1 H Platelet Estimate Normal PT 12.3 H INR 1.1 APTT 29 pO2 28 L VBG pH 7.45 H VBG pCO2 46 VBG HCO3 29.2 VBG Total CO2 33.4 H VBG O2 Sat (Calc) 50.4 VBG Base Excess 6.9 H VBG Potassium 4.4 Sodium 144.0 Chloride 114.0 H Glucose 90 Lactate 3.9 H Potassium Carbon Dioxide Anion Gap BUN Creatinine Est GFR ( Amer) Est GFR (Non-Af Amer) Random Glucose Calcium Phosphorus Magnesium Total Bilirubin AST ALT Alkaline Phosphatase Total Protein Albumin Globulin Albumin/Globulin Ratio Venous Blood Potassium 4.4 Influenza Typ A,B (EIA) 12/16/18 12/16/18 12/16/18 04:22 05:03 06:30 WBC RBC Hgb Hct MCV MCH MCHC RDW Plt Count MPV Neut % (Auto) Lymph % (Auto) [place] % (Auto) Eos % (Auto) Baso % (Auto) Neut # (Auto) Lymph # (Auto) [place] # (Auto) Eos # (Auto) Baso # (Auto) Neutrophils % (Manual) Band Neutrophils % Lymphocytes % (Manual) Monocytes % (Manual) Plasma Cell % (Manual) Platelet Estimate PT INR APTT pO2 22 L VBG pH 7.38 VBG pCO2 54 VBG HCO3 27.4 VBG Total CO2 33.6 H VBG O2 Sat (Calc) 31.4 L VBG Base Excess 5.3 H VBG Potassium 4.3 Sodium 141 145.0 Chloride 104 117.0 H Glucose 80 Lactate 1.6 Potassium 3.9 Carbon Dioxide 31 H Anion Gap 10 BUN 25 H Creatinine 0.6 L Est GFR ( Amer) > 60 Est GFR (Non-Af Amer) > 60 Random Glucose 94 Calcium 8.9 Phosphorus 2.7 Magnesium 1.9 Total Bilirubin 0.6 AST 31 ALT 20 L D Alkaline Phosphatase 162 H Total Protein 6.9 Albumin 3.4 L D Globulin 3.5 Albumin/Globulin Ratio 1.0 Venous Blood Potassium 4.3 Influenza Typ A,B (EIA) Negative for flu a/b Assessment & Plan (1) CVA (cerebral vascular accident) Status: Acute (2) Sepsis Status: Acute - Assessment and Plan (Free Text) Assessment: sepsis / dehydration rx pneumonia pending c diff discussed with family and PMD orders written labs/ xrays reviewed
[2018-12-16 21:25] LABS: URINE BACTERIA OCC (<OCC); URINE BILIRUBIN NEGATIVE (NEGATIVE); URINE BLOOD 3+ (NEGATIVE); URINE CLARITY Hazy (Clear); URINE COLOR Yellow (YELLOW); URINE GLUCOSE (UA) NORMAL (Normal); URINE LEUKOCYTE ESTERASE NEG Leu/uL (Negative); URINE PROTEIN NEGATIVE (NEGATIVE)
[2018-12-16] MEDS: Latanoprost 2.5 ml Opht Soln OU SCH (21:42)
--- NOTE | 2018-12-17 00:03 | CARD ---
APPROVED REPORT Date of service: 12/16/2018 EKG Measurement Heart [id number] <Conclusion> Sinus tachycardia Nonspecific ST and T wave abnormality Abnormal ECG
[2018-12-17] MEDS: Dextrose 5%/0.45% NS 1,000 ML IV SCH ×2 (03:41→14:25)
[2018-12-17] MEDS: Albuterol-Ipratrop 3 mg / 0.5 (3 ml) UD INH SCH ×5 (03:52→20:20)
--- NOTE | 2018-12-17 06:27 | HP ---
HISTORY OF PRESENT ILLNESS: Mr. Ambrose is an 83-year-old male, admitted to the hospital with chief complaint of weakness, fever and fatigue. The patient was found to have large pneumonia by admission to the hospital. The patient has history of urosepsis and atrial fibrillation. PHYSICAL EXAMINATION: GENERAL: The patient is awake, alert, oriented. VITAL SIGNS: Temperature is 98, pulse 95 and regular, blood pressure of 110/70. HEENT: Within normal limits. NECK: Supple. CHEST: Symmetrical. HEART: Regular. ABDOMEN: Soft. EXTREMITIES: No edema. IMPRESSION: The patient suffers from pneumonia, atrial fibrillation. PLAN: The patient is to get bed rest. Supportive care. Intravenous antibiotics. Brian Norris MD
[2018-12-17 08:01] LABS: BASO # 0.1 K/uL (0.0-0.2); BASO % 0.4 % (0.0-2.0); EOS # 0.1 K/uL (0.0-0.7); LYMPH % 7.2 % (20.0-40.0); MEAN CELL VOLUME 88.2 fL (80.0-94.0); MEAN CORPUSCULAR HEMOGLOBIN 26.2 pg (27.0-31.0); MEAN CORPUSCULAR HGB CONC 29.7 g/dL (33.0-37.0); MEAN PLATELET VOLUME 7.4 fL (7.2-11.7); MONO # 0.8 K/uL (0.0-0.8); MONO % 5.5 % (0.0-10.0); NEUT # 12.2 K/uL (1.8-7.0); NEUT % 85.9 % (50.0-75.0); PLATELET COUNT 300 K/uL (130-400); RBC 3.14 Mil/uL (4.40-5.90); WHITE BLOOD COUNT 14.2 K/uL (4.8-10.8)
[2018-12-17 08:15] LABS: HEMOGLOBIN 8.2 g/dL (12.0-18.0)
[2018-12-17 08:35] LABS: ALB/GLOB RATIO 0.8 (1.0-2.1); ALBUMIN 2.4 g/dL (3.5-5.0); ALT/SGPT 17 U/L (21-72); AST/SGOT 23 U/L (17-59); BLOOD UREA NITROGEN 21 mg/dL (9-20); CALCIUM 8.1 mg/dl (8.6-10.4); GFR NON-AFRICAN AMERICAN > 60
[2018-12-17 09:31] LABS: EOSINOPHIL 1 % (0-4); LYMPHOCYTE 5 % (20-40); MONOCYTE 5 % (0-10); NEUTROPHIL 89 % (50-75); TOTAL CELLS COUNTED 100
[2018-12-17 09:32] LABS: ANISOCYTOSIS SLIGHT; PLATELET ESTIMATE NORMAL (NORMAL); POLYCHROMIC SLIGHT
[2018-12-17 09:33] LABS: HYPOCHROMIC MODERATE
[2018-12-17] MEDS: Saccharomyces Boulardi 250 mg Cap PO SCH ×2 (10:55→17:01)
[2018-12-17] MEDS: Verapamil 120 mg ER Tab PO SCH (10:55)
[2018-12-17] MEDS ORDERED: Potassium Chloride 20 mEq ER Tab PO ONE (11:00)
[2018-12-17] MEDS: Cefepime 2 GM in Sodium Chloride 0.9% 100 ML IVPB SCH (14:22)
--- NOTE | 2018-12-17 14:36 | CP.PCM.PN ---
Subjective - Date & Time of Evaluation Date of Evaluation: 12/17/18 Time of Evaluation: 09:00 - Subjective Subjective: Patient seen and examined at bedside. Was notified by nurse of drop in Hemoglobin. Patient denies any fever, chills, SOB, abdominal pain, nausea, vomiting, changes in bowel habits, or urinary symptoms. Patient states he doing okay and want to go home. Objective - Vital Signs/Intake and Output Vital Signs (last 24 hours): Temp Pulse Resp BP Pulse Ox 98.1 F 125 H 20 99/62 L 96 12/17/18 07:00 12/17/18 07:00 12/17/18 07:00 12/17/18 07:00 12/17/18 07:00 Intake and Output: 12/17/18 12/17/18 06:59 18:59 Intake Total 1300 Balance 1300 - Medications Medications: Current Medications Acetaminophen (Tylenol 325mg Tab) 650 mg PO Q6 PRN PRN Reason: Fever >100.4 F Albuterol/Ipratropium (Duoneb 3 Mg/0.5 Mg (3 Ml) Ud) 3 ml INH RQ4 [facility] Last Admin: 12/17/18 11:53 Dose: 3 ml Albuterol/Ipratropium (Duoneb 3 Mg/0.5 Mg (3 Ml) Ud) 3 ml INH RQ6 PRN PRN Reason: Shortness of Breath Apixaban (Eliquis) 2.5 mg PO BID [facility] Last Admin: 12/17/18 11:29 Dose: Not Given Donepezil HCl (Aricept) 5 mg PO HS [facility] Last Admin: 12/16/18 21:42 Dose: 5 mg Finasteride (Proscar) 5 mg PO DAILY [facility] Last Admin: 12/17/18 10:55 Dose: 5 mg Vancomycin HCl 1,000 mg/ (Sodium Chloride) 250 mls @ 166.6 mls/hr IVPB Q12H [facility]; Protocol Last Admin: 12/17/18 07:15 Dose: 166.6 mls/hr Dextrose/Sodium Chloride (Dextrose 5%/0.45% Ns 1000 Ml) 1,000 mls @ 100 mls/hr IV .Q10H [facility] Last Admin: 12/17/18 14:25 Dose: 100 mls/hr Azithromycin 500 mg/ Sodium (Chloride) 250 mls @ 250 mls/hr IVPB 1600 [facility]; Protocol Last Admin: 12/16/18 17:40 Dose: 250 mls/hr Cefepime HCl 2 gm/ Sodium (Chloride) 100 mls @ 100 mls/hr IVPB Q12H [facility]; Protocol Last Admin: 12/17/18 14:22 Dose: 100 mls/hr Influenza Virus Vaccine (Flucelvax Quad 1299-6918 Syr) 60 mcg IM .ONCE ONE Stop: 12/19/18 10:01 Latanoprost (Xalatan Opht) 0.05 ml OU HS [facility] Last Admin: 12/16/18 21:42 Dose: 0.05 ml Lorazepam (Ativan) 1 mg PO Q12H PRN PRN Reason: Agitation Pneumococcal Polyvalent Vaccine (Pneumovax 23 Vaccine) 0.5 ml IM .ONCE ONE Stop: 12/19/18 10:01 Rosuvastatin Calcium (Crestor) 10 mg PO [facility] Last Admin: 12/16/18 21:42 Dose: 10 mg Saccharomyces Boulardii (Florastor) 250 mg PO BID [facility] Last Admin: 12/17/18 10:55 Dose: 250 mg Verapamil HCl (Calan Sr Tab) 120 mg PO DAILY [facility] Last Admin: 12/17/18 10:55 Dose: 120 mg - Labs Labs: 12/17/18 07:52 12/17/18 07:52 PT 12.3 SECONDS (9.7-12.2) H 12/16/18 04:22 INR 1.1 12/16/18 04:22 APTT 29 SECONDS (21-34) 12/16/18 04:22 - Constitutional Appears: Non-toxic, No Acute Distress, Chronically Ill - Head Exam Head Exam: ATRAUMATIC, NORMAL INSPECTION, NORMOCEPHALIC - Eye Exam Eye Exam: EOMI, Normal appearance. absent: Scleral icterus - ENT Exam ENT Exam: Mucous Membranes Moist - Respiratory Exam Respiratory Exam: Decreased Breath Sounds, Clear to Ausculation Bilateral, NORMAL BREATHING PATTERN. absent: Accessory Muscle Use - Cardiovascular Exam Cardiovascular Exam: RRR, +S1, +S2 - GI/Abdominal Exam GI & Abdominal Exam: Soft. absent: Tenderness - Extremities Exam Extremities Exam: Normal Capillary Refill. absent: Pedal Edema - Neurological Exam Neurological Exam: Alert, Awake - Psychiatric Exam Psychiatric exam: Anxious - Skin Skin Exam: Dry, Intact, Normal Color, Warm Assessment and Plan - Assessment and Plan (Free Text) Plan: SEPSIS/Health Care Associated Pneumonia Tachycardia and Febrile on Admission Cxray (12/16/18): interval worsening infiltrate coalescent right lung flu negative lactate on admission 3.9, decreased to 1.6 meds: Vancomycin 1000mg ivpb q12h Azithromycin 500mg ivpb daily Cefepime 2gm Q12H Florastor 250mg po BID Duonebs q4h concepción, q6h prn Tylenol 650mg po q6h prn Normocytic Anemia Anemia Workup - F/U Stool Occult Blood Ordered - F/U Eliquis Held, to be restrated tomorrow if HgB Stable. Afib Eliquis 2.5mg po BID (Held due to low HgB) Verapamil 120mg po daily Dementia Aricept 5mg po HS Ativan 1mg po q12h prn for agitation BPH Proscar 5mg po daily Glaucoma Latanoprost .05 OU HS Hx CVA Crestor 10mg po HS Consider ASA 81 Daily Prophylaxis on Eliquis (Held), SCDs D5 1/2 NS at 100cc/hr Patient seen and discussed with Dr. Myrna Johnson, PGY-2
[2018-12-17] MEDS: Azithromycin 500 MG in Sodium Chloride 0.9% 250 ML IVPB SCH (16:59)
--- NOTE | 2018-12-17 18:15 | CP.PCM.PN ---
Subjective - Date & Time of Evaluation Date of Evaluation: 12/17/18 Time of Evaluation: 08:00 - Subjective Subjective: events noted afeb on IV antibiotics Objective - Vital Signs/Intake and Output Vital Signs (last 24 hours): Temp Pulse Resp BP Pulse Ox 98.0 F 84 20 121/70 98 12/17/18 15:00 12/17/18 15:59 12/17/18 15:00 12/17/18 15:00 12/17/18 15:00 Intake and Output: 12/17/18 12/17/18 06:59 18:59 Intake Total 1300 Balance 1300 - Medications Medications: Current Medications Acetaminophen (Tylenol 325mg Tab) 650 mg PO Q6 PRN PRN Reason: Fever >100.4 F Albuterol/Ipratropium (Duoneb 3 Mg/0.5 Mg (3 Ml) Ud) 3 ml INH RQ4 [facility] Last Admin: 12/17/18 11:53 Dose: 3 ml Albuterol/Ipratropium (Duoneb 3 Mg/0.5 Mg (3 Ml) Ud) 3 ml INH RQ6 PRN PRN Reason: Shortness of Breath Apixaban (Eliquis) 2.5 mg PO BID [facility] Last Admin: 12/17/18 11:29 Dose: Not Given Donepezil HCl (Aricept) 5 mg PO HS [facility] Last Admin: 12/16/18 21:42 Dose: 5 mg Finasteride (Proscar) 5 mg PO DAILY [facility] Last Admin: 12/17/18 10:55 Dose: 5 mg Vancomycin HCl 1,000 mg/ (Sodium Chloride) 250 mls @ 166.6 mls/hr IVPB Q12H [facility]; Protocol Last Admin: 12/17/18 07:15 Dose: 166.6 mls/hr Dextrose/Sodium Chloride (Dextrose 5%/0.45% Ns 1000 Ml) 1,000 mls @ 100 mls/hr IV .Q10H [facility] Last Admin: 12/17/18 14:25 Dose: 100 mls/hr Azithromycin 500 mg/ Sodium (Chloride) 250 mls @ 250 mls/hr IVPB 1600 [facility]; Protocol Last Admin: 12/17/18 16:59 Dose: 250 mls/hr Cefepime HCl 2 gm/ Sodium (Chloride) 100 mls @ 100 mls/hr IVPB Q12H [facility]; Protocol Last Admin: 12/17/18 14:22 Dose: 100 mls/hr Influenza Virus Vaccine (Flucelvax Quad 2407-1738 Syr) 60 mcg IM .ONCE ONE Stop: 12/19/18 10:01 Latanoprost (Xalatan Opht) 0.05 ml OU HS [facility] Last Admin: 12/16/18 21:42 Dose: 0.05 ml Lorazepam (Ativan) 1 mg PO Q12H PRN PRN Reason: Agitation Pneumococcal Polyvalent Vaccine (Pneumovax 23 Vaccine) 0.5 ml IM .ONCE ONE Stop: 12/19/18 10:01 Rosuvastatin Calcium (Crestor) 10 mg PO HS [facility] Last Admin: 12/16/18 21:42 Dose: 10 mg Saccharomyces Boulardii (Florastor) 250 mg PO BID [facility] Last Admin: 12/17/18 17:01 Dose: 250 mg Verapamil HCl (Calan Sr Tab) 120 mg PO DAILY [facility] Last Admin: 12/17/18 10:55 Dose: 120 mg - Labs Labs: 12/17/18 07:52 12/17/18 07:52 PT 12.3 SECONDS (9.7-12.2) H 12/16/18 04:22 INR 1.1 12/16/18 04:22 APTT 29 SECONDS (21-34) 12/16/18 04:22 - Constitutional Appears: Non-toxic, Cachectic, Chronically Ill - Head Exam Head Exam: NORMOCEPHALIC - Eye Exam Eye Exam: absent: Scleral icterus - ENT Exam ENT Exam: Normal External Ear Exam - Neck Exam Neck Exam: absent: Lymphadenopathy - Respiratory Exam Respiratory Exam: Decreased Breath Sounds - Cardiovascular Exam Cardiovascular Exam: REGULAR RHYTHM - GI/Abdominal Exam GI & Abdominal Exam: Distended, Soft - Rectal Exam Rectal Exam: Deferred - Exam Exam: NORMAL INSPECTION - Extremities Exam Extremities Exam: absent: Pedal Edema - Back Exam Back Exam: absent: CVA tenderness (L), CVA tenderness (R) Assessment and Plan (1) CVA (cerebral vascular accident) Status: Acute (2) Sepsis Status: Acute - Assessment and Plan (Free Text) Assessment: improving on empiric rx cont rx
[2018-12-17] MEDS: Latanoprost 2.5 ml Opht Soln OU SCH (21:48)
[2018-12-18] MEDS: Albuterol-Ipratrop 3 mg / 0.5 (3 ml) UD INH SCH ×6 (00:12→20:07)
[2018-12-18] MEDS: Cefepime 2 GM in Sodium Chloride 0.9% 100 ML IVPB SCH ×2 (01:30→14:59)
[2018-12-18] MEDS: Dextrose 5%/0.45% NS 1,000 ML IV SCH ×3 (05:34→23:35)
[2018-12-18 06:44] LABS: BASO # 0.1 K/uL (0.0-0.2); BASO % 0.4 % (0.0-2.0); EOS # 0.2 K/uL (0.0-0.7); EOS % 1.7 % (0.0-4.0); HEMOGLOBIN 7.8 g/dL (12.0-18.0); LYMPH # 1.3 K/uL (1.0-4.3); LYMPH % 11.4 % (20.0-40.0); MEAN CELL VOLUME 86.5 fL (80.0-94.0); MEAN CORPUSCULAR HEMOGLOBIN 26.9 pg (27.0-31.0); MEAN CORPUSCULAR HGB CONC 31.2 g/dL (33.0-37.0); MEAN PLATELET VOLUME 7.4 fL (7.2-11.7); MONO # 0.8 K/uL (0.0-0.8); MONO % 7.1 % (0.0-10.0); NEUT # 9.2 K/uL (1.8-7.0); NEUT % 79.4 % (50.0-75.0); RBC 2.91 Mil/uL (4.40-5.90); RED CELL DISTRIBUTION WIDTH 19.2 % (11.5-14.5); WHITE BLOOD COUNT 11.6 K/uL (4.8-10.8)
[2018-12-18 07:00] LABS: IRON < 10 ug/dL (49-181)
[2018-12-18 07:26] LABS: ALB/GLOB RATIO 0.8 (1.0-2.1); ALBUMIN 2.3 g/dL (3.5-5.0); ALT/SGPT 10 U/L (21-72); AST/SGOT 21 U/L (17-59); BLOOD UREA NITROGEN 17 mg/dL (9-20); CALCIUM 8.3 mg/dl (8.6-10.4); GFR NON-AFRICAN AMERICAN > 60
[2018-12-18 07:27] LABS: TOTAL IRON BINDING CAPACITY 237 ug/dL (250-450)
[2018-12-18 07:28] LABS: % IRON SATURATION 4.21 (20-55)
[2018-12-18 07:35] LABS: FERRITIN 55.8 ng/mL
[2018-12-18 08:05] LABS: FOLATE > 20.0 ng/mL
[2018-12-18] MEDS: Saccharomyces Boulardi 250 mg Cap PO SCH ×2 (09:16→17:09)
[2018-12-18] MEDS: Verapamil 120 mg ER Tab PO SCH (09:17)
[2018-12-18] MEDS ORDERED: Potassium Chloride 20 mEq ER Tab PO ONE (10:30)
[2018-12-18] MEDS: Ferric Sodium Gluconat Complex 62.5 mg/5 ml Vial IVPB SCH (11:21)
[2018-12-18] MEDS: Azithromycin 500 MG in Sodium Chloride 0.9% 250 ML IVPB SCH (16:30)
[2018-12-18] MEDS: Latanoprost 2.5 ml Opht Soln OU SCH (21:37)
[2018-12-19] MEDS: Albuterol-Ipratrop 3 mg / 0.5 (3 ml) UD INH SCH ×5 (01:17→20:28)
[2018-12-19] MEDS: Cefepime 2 GM in Sodium Chloride 0.9% 100 ML IVPB SCH ×2 (02:35→14:27)
[2018-12-19] MEDS: Dextrose 5%/0.45% NS 1,000 ML IV SCH ×2 (05:01→14:29)
--- NOTE | 2018-12-19 08:39 | CP.PCM.CON ---
History of Present Illness - History of Present Illness History of Present Illness: I was asked to see patient by Dr Norris. Patient seen 12/19/18 [id number] Patient is a 83 year old male with severe (family refused further work up on previous admission), paroxysmal atrial fibrillation, HTN , dementia presents with altered mental status diarrhea and dehydration. He was brought home from a senior living but by report has frequwnt diarrhea and poor oral intake. The patient was brought to the ER, and found to have fever and RLL infiltrate. he is currently on antibiotic therapy. Review of Systems - Review of Systems Systems not reviewed;Unavailable: Dementia - Constitutional Constitutional: Fever - Gastrointestinal Gastrointestinal: Diarrhea Past Patient History - Past Medical History & Family History Past Medical History?: No - Past Social History Smoking Status: Unknown If Ever Smoked - CARDIAC Hx Atrial Fibrillation: Yes Hx Hypertension: No Hx Pacemaker: No - PULMONARY Hx Respiratory Disorders: No Hx Tuberculosis: No - NEUROLOGICAL Hx Dementia: Yes Hx Seizures: No - HEENT Hx HEENT Problems: Yes Hx Glaucoma: Yes - RENAL Hx Chronic Kidney Disease: No - ENDOCRINE/METABOLIC Hx Endocrine Disorders: No - HEMATOLOGICAL/ONCOLOGICAL Hx Human Immunodeficiency Virus (HIV): No - INTEGUMENTARY Hx Dermatological Problems: No - MUSCULOSKELETAL/RHEUMATOLOGICAL Hx Falls: Yes - GASTROINTESTINAL Hx Gastrointestinal Disorders: Yes Other/Comment: liver abscess - GENITOURINARY/GYNECOLOGICAL Hx Sexually Transmitted Disorders: No - PSYCHIATRIC Hx Substance Use: No - SURGICAL HISTORY Hx Cholecystectomy: Yes - ANESTHESIA Hx Anesthesia: Yes Hx Anesthesia Reactions: No Hx Malignant Hyperthermia: No Has any member of the family had a problem w/ anesthesia?: No Meds Allergies/Adverse Reactions: Allergies Allergy/AdvReac Type Severity Reaction Status Date / Time No Known Allergies Allergy Verified 12/16/18 03:29 - Medications Medications: Current Medications Acetaminophen (Tylenol 325mg Tab) 650 mg PO Q6 PRN PRN Reason: Fever >100.4 F Albuterol/Ipratropium (Duoneb 3 Mg/0.5 Mg (3 Ml) Ud) 3 ml INH RQ4 [facility] Last Admin: 12/19/18 05:07 Dose: Not Given Albuterol/Ipratropium (Duoneb 3 Mg/0.5 Mg (3 Ml) Ud) 3 ml INH RQ6 PRN PRN Reason: Shortness of Breath Apixaban (Eliquis) 2.5 mg PO BID [facility] Last Admin: 12/18/18 17:09 Dose: Not Given Diltiazem HCl (Cardizem) 30 mg PO TID [facility] Donepezil HCl (Aricept) 5 mg PO [facility] Last Admin: 12/18/18 21:31 Dose: 5 mg Ferric Sodium Gluconate Complex (Ferrlecit) 125 mg IVPB DAILY [facility] Stop: 12/23/18 10:31 Last Admin: 12/18/18 11:21 Dose: 125 mg Finasteride (Proscar) 5 mg PO DAILY [facility] Last Admin: 12/18/18 09:16 Dose: 5 mg Vancomycin HCl 1,000 mg/ (Sodium Chloride) 250 mls @ 166.6 mls/hr IVPB Q12H [facility]; Protocol Last Admin: 12/19/18 05:59 Dose: 166.6 mls/hr Azithromycin 500 mg/ Sodium (Chloride) 250 mls @ 250 mls/hr IVPB 1600 [facility]; Protocol Last Admin: 12/18/18 16:30 Dose: 250 mls/hr Cefepime HCl 2 gm/ Sodium (Chloride) 100 mls @ 100 mls/hr IVPB Q12H [facility]; Protocol Last Admin: 12/19/18 02:35 Dose: 100 mls/hr Influenza Virus Vaccine (Flucelvax Quad [id number] Syr) 60 mcg IM .ONCE ONE Stop: 12/19/18 10:01 Latanoprost (Xalatan Opht) 0.05 ml OU [facility] Last Admin: 12/18/18 21:37 Dose: Not Given Lorazepam (Ativan) 1 mg IVP Q8H PRN PRN Reason: Agitation Last Admin: 12/19/18 02:56 Dose: 1 mg Pneumococcal Polyvalent Vaccine (Pneumovax 23 Vaccine) 0.5 ml IM .ONCE ONE Stop: 12/19/18 10:01 Rosuvastatin Calcium (Crestor) 10 mg PO [facility] Last Admin: 12/18/18 21:31 Dose: 10 mg Saccharomyces Boulardii (Florastor) 250 mg PO BID [facility] Last Admin: 12/18/18 17:09 Dose: 250 mg Verapamil HCl (Calan Sr Tab) 120 mg PO DAILY [facility] Last Admin: 12/18/18 09:17 Dose: 120 mg Physical Exam - Constitutional Appears: Chronically Ill - Head Exam Head Exam: NORMAL INSPECTION - ENT Exam ENT Exam: Mucous Membranes Dry - Neck Exam Neck exam: Positive for: Normal Inspection. Negative for: Lymphadenopathy, Tenderness, Thyromegaly Additional comments: transmitted systolic murmur - Respiratory Exam Respiratory Exam: Decreased Breath Sounds, Rales. absent: Respiratory Distress, Stridor - Cardiovascular Exam Cardiovascular Exam: REGULAR RHYTHM, RRR Additional comments: 3/6 crescendo systolic murmur - GI/Abdominal Exam GI & Abdominal Exam: Diminished Bowel Sounds, Soft. absent: Pulsatile Mass, Rebound, Rigid - Rectal Exam Rectal Exam: Deferred - Extremities Exam Extremities exam: Negative for: pedal edema, pedal pulses present - Back Exam Back exam: NORMAL INSPECTION - Skin Skin Exam: Dry, Normal Color Results - Vital Signs Recent Vital Signs: Last Vital Signs Temp 98.2 F 12/18/18 23:00 Pulse 97 H 12/19/18 01:00 Resp 20 12/18/18 23:00 BP 122/78 12/18/18 23:00 Pulse Ox 97 12/18/18 23:00 - Labs Result Diagrams: 12/18/18 06:35 12/18/18 06:35 Labs: Laboratory Results - last 24 hr 12/18/18 12/18/18 11:30 12:40 Stool Occult Blood Negative Blood Type AB POSITIVE Blood Type Confirm AB POSITIVE Antibody Screen Negative - EKG Data EKG Interpreted by: Myself Assessment & Plan (1) Aortic stenosis Assessment and Plan: severe by previous candidate. well documented in previous notes that family wishes conservative therapy. avoid afterload reduction given severe Status: Acute (2) Paroxysmal atrial fibrillation Assessment and Plan: on Eliquis. will have to weigh the risks and benefits as patient is of advanced age, and has increased risk of bleeding. Status: Acute
[2018-12-19] MEDS: Ferric Sodium Gluconat Complex 62.5 mg/5 ml Vial IVPB SCH (09:37)
[2018-12-19] MEDS: Saccharomyces Boulardi 250 mg Cap PO SCH ×2 (09:38→18:05)
[2018-12-19] MEDS: Verapamil 120 mg ER Tab PO SCH (09:38)
[2018-12-19 09:39] LABS: BASO # 0.1 K/uL (0.0-0.2); BASO % 1.4 % (0.0-2.0); EOS # 0.3 K/uL (0.0-0.7); EOS % 3.8 % (0.0-4.0); HEMOGLOBIN 8.5 g/dL (12.0-18.0); LYMPH # 1.2 K/uL (1.0-4.3); LYMPH % 15.9 % (20.0-40.0); MEAN CELL VOLUME 86.4 fL (80.0-94.0); MEAN CORPUSCULAR HEMOGLOBIN 27.5 pg (27.0-31.0); MEAN CORPUSCULAR HGB CONC 31.9 g/dL (33.0-37.0); MEAN PLATELET VOLUME 7.5 fL (7.2-11.7); MONO # 0.8 K/uL (0.0-0.8); MONO % 10.4 % (0.0-10.0); NEUT # 5.3 K/uL (1.8-7.0); NEUT % 68.5 % (50.0-75.0); RBC 3.09 Mil/uL (4.40-5.90); RED CELL DISTRIBUTION WIDTH 18.6 % (11.5-14.5); WHITE BLOOD COUNT 7.7 K/uL (4.8-10.8)
[2018-12-19 09:55] LABS: ALB/GLOB RATIO 0.8 (1.0-2.1); ALBUMIN 2.4 g/dL (3.5-5.0); ALT/SGPT 12 U/L (21-72); AST/SGOT 28 U/L (17-59); BLOOD UREA NITROGEN 12 mg/dL (9-20); CALCIUM 8.2 mg/dl (8.6-10.4); GFR NON-AFRICAN AMERICAN > 60
[2018-12-19] MEDS ORDERED: Influenza Vaccine 60 mcg/0.5 mL SYR (4YR UP) IM ONE (10:00)
[2018-12-19] MEDS ORDERED: Pneumococcal 23-Valent Vaccine IM ONE (10:00)
--- NOTE | 2018-12-19 15:26 | CP.PCM.PN ---
Subjective - Date & Time of Evaluation Date of Evaluation: 12/19/18 Time of Evaluation: 10:00 - Subjective Subjective: 83 year old male admitted in 09/2018 , initially for CVA but also for pneumonia, went out to short term rehab and was discharged 2 weeks ago. Admitted with cough congestion and fever with some diarrhea reported ID consulted for this Poor historian confused NAD improving slowly afebrile Objective - Vital Signs/Intake and Output Vital Signs (last 24 hours): Temp Pulse Resp BP Pulse Ox 98.3 F 76 20 123/76 95 12/19/18 08:46 12/19/18 08:46 12/19/18 08:46 12/19/18 08:46 12/19/18 08:46 Intake and Output: 12/19/18 12/19/18 06:59 18:59 Intake Total 1050 Balance 1050 - Medications Medications: Current Medications Acetaminophen (Tylenol 325mg Tab) 650 mg PO Q6 PRN PRN Reason: Fever >100.4 F Albuterol/Ipratropium (Duoneb 3 Mg/0.5 Mg (3 Ml) Ud) 3 ml INH RQ4 [facility] Last Admin: 12/19/18 12:25 Dose: Not Given Albuterol/Ipratropium (Duoneb 3 Mg/0.5 Mg (3 Ml) Ud) 3 ml INH RQ6 PRN PRN Reason: Shortness of Breath Apixaban (Eliquis) 2.5 mg PO BID [facility] Last Admin: 12/18/18 17:09 Dose: Not Given Diltiazem HCl (Cardizem) 30 mg PO TID [facility] Last Admin: 12/19/18 14:27 Dose: 30 mg Donepezil HCl (Aricept) 5 mg PO HS [facility] Last Admin: 12/18/18 21:31 Dose: 5 mg Ferric Sodium Gluconate Complex (Ferrlecit) 125 mg IVPB DAILY [facility] Stop: 12/23/18 10:31 Last Admin: 12/19/18 09:37 Dose: 125 mg Finasteride (Proscar) 5 mg PO DAILY [facility] Last Admin: 12/19/18 09:38 Dose: 5 mg Vancomycin HCl 1,000 mg/ (Sodium Chloride) 250 mls @ 166.6 mls/hr IVPB Q12H [facility]; Protocol Last Admin: 12/19/18 05:59 Dose: 166.6 mls/hr Azithromycin 500 mg/ Sodium (Chloride) 250 mls @ 250 mls/hr IVPB 1600 [facility]; Protocol Last Admin: 12/18/18 16:30 Dose: 250 mls/hr Cefepime HCl 2 gm/ Sodium (Chloride) 100 mls @ 100 mls/hr IVPB Q12H [facility]; Protocol Last Admin: 12/19/18 14:27 Dose: 100 mls/hr Latanoprost (Xalatan Opht) 0.05 ml OU HS [facility] Last Admin: 12/18/18 21:37 Dose: Not Given Lorazepam (Ativan) 1 mg IVP Q8H PRN PRN Reason: Agitation Last Admin: 12/19/18 02:56 Dose: 1 mg Rosuvastatin Calcium (Crestor) 10 mg PO HS [facility] Last Admin: 12/18/18 21:31 Dose: 10 mg Saccharomyces Boulardii (Florastor) 250 mg PO BID [facility] Last Admin: 12/19/18 09:38 Dose: 250 mg Verapamil HCl (Calan Sr Tab) 120 mg PO DAILY [facility] Last Admin: 12/19/18 09:38 Dose: 120 mg - Labs Labs: 12/19/18 09:32 12/19/18 09:32 PT 12.3 SECONDS (9.7-12.2) H 12/16/18 04:22 INR 1.1 12/16/18 04:22 APTT 29 SECONDS (21-34) 12/16/18 04:22 - Constitutional Appears: Confused, Cachectic, Chronically Ill - Head Exam Head Exam: NORMOCEPHALIC - Eye Exam Eye Exam: absent: Scleral icterus - ENT Exam ENT Exam: Mucous Membranes Dry - Neck Exam Neck Exam: absent: Lymphadenopathy - Respiratory Exam Respiratory Exam: Decreased Breath Sounds, Rhonchi - Cardiovascular Exam Cardiovascular Exam: REGULAR RHYTHM, +S1, +S2 - GI/Abdominal Exam GI & Abdominal Exam: Distended, Soft. absent: Tenderness - Rectal Exam Rectal Exam: Deferred - Exam Exam: NORMAL INSPECTION - Extremities Exam Extremities Exam: absent: Pedal Edema - Back Exam Back Exam: absent: CVA tenderness (L), CVA tenderness (R) - Neurological Exam Neurological Exam: Alert, Awake Assessment and Plan (1) CVA (cerebral vascular accident) Status: Acute (2) Sepsis Status: Acute - Assessment and Plan (Free Text) Assessment: 83 year old male admitted in 09/2018 , initially for CVA but also for pneumonia, went out to short term rehab and was discharged 2 weeks ago. Admitted with cough congestion and fever with some diarrhea reported ID consulted for this Poor historian confused NAD cont iv rx cardio on board
[2018-12-19] MEDS: Azithromycin 500 MG in Sodium Chloride 0.9% 250 ML IVPB SCH (16:00)
[2018-12-19] MEDS: Latanoprost 2.5 ml Opht Soln OU SCH (21:06)
[2018-12-20] MEDS: Albuterol-Ipratrop 3 mg / 0.5 (3 ml) UD INH SCH ×7 (01:23→23:21)
[2018-12-20] MEDS: Cefepime 2 GM in Sodium Chloride 0.9% 100 ML IVPB SCH ×2 (01:38→14:02)
[2018-12-20 08:24] LABS: BASO # 0.1 K/uL (0.0-0.2); EOS # 0.3 K/uL (0.0-0.7); EOS % 5.2 % (0.0-4.0); HEMOGLOBIN 8.1 g/dL (12.0-18.0); LYMPH # 1.2 K/uL (1.0-4.3); LYMPH % 18.6 % (20.0-40.0); MEAN CELL VOLUME 86.2 fL (80.0-94.0); MEAN CORPUSCULAR HEMOGLOBIN 27.7 pg (27.0-31.0); MEAN CORPUSCULAR HGB CONC 32.2 g/dL (33.0-37.0); MEAN PLATELET VOLUME 7.2 fL (7.2-11.7); MONO # 0.6 K/uL (0.0-0.8); MONO % 9.5 % (0.0-10.0); NEUT # 4.2 K/uL (1.8-7.0); NEUT % 65.7 % (50.0-75.0); RBC 2.94 Mil/uL (4.40-5.90); RED CELL DISTRIBUTION WIDTH 18.5 % (11.5-14.5); WHITE BLOOD COUNT 6.4 K/uL (4.8-10.8)
[2018-12-20 08:40] LABS: ALB/GLOB RATIO 0.7 (1.0-2.1); ALBUMIN 2.2 g/dL (3.5-5.0); ALT/SGPT 18 U/L (21-72); AST/SGOT 24 U/L (17-59); BLOOD UREA NITROGEN 15 mg/dL (9-20); CALCIUM 8.3 mg/dl (8.6-10.4); GFR NON-AFRICAN AMERICAN > 60
[2018-12-20] MEDS: Ferric Sodium Gluconat Complex 62.5 mg/5 ml Vial IVPB SCH (09:56)
--- NOTE | 2018-12-20 09:58 | RAD ---
Date of service: 12/20/2018 HISTORY: cough, sob COMPARISON: 12/16/2018 FINDINGS: LUNGS: Extensive infiltrate in mid and lower right lung, grossly unchanged from prior examination. No abnormal left-sided infiltrate. PLEURA: Small bilateral pleural effusion. Left pleural effusion is new since prior examination. No pneumothorax. CARDIOVASCULAR: There is atherosclerotic calcification of the thoracic aorta. Normal cardiac size. No pulmonary vascular congestion. OSSEOUS STRUCTURES: No significant abnormalities. VISUALIZED UPPER ABDOMEN: Normal. OTHER FINDINGS: None. IMPRESSION: Right-sided pulmonary infiltrate grossly unchanged. Small bilateral pleural effusion.
[2018-12-20] MEDS ORDERED: Potassium Chloride 20 mEq ER Tab PO ONE (10:00)
[2018-12-20] MEDS: Verapamil 120 mg ER Tab PO SCH (10:02)
[2018-12-20] MEDS: Saccharomyces Boulardi 250 mg Cap PO SCH ×2 (10:02→17:48)
--- NOTE | 2018-12-20 14:06 | CP.PCM.PN ---
Subjective - Date & Time of Evaluation Date of Evaluation: 12/20/18 Time of Evaluation: 09:00 - Subjective Subjective: PGY2- Progress Note for Dr. Norris Patient seen and examined at bedside. Patient is grunting and getting agitated. Patient wants to know when he can go home. Patient denies any complaints. Patient denies headache, chest pain, abdominal pain, nausea, vomiting, constipation, or diarrhea. Objective - Vital Signs/Intake and Output Vital Signs (last 24 hours): Temp Pulse Resp BP Pulse Ox 98.2 F 105 H 18 115/72 90 L 12/20/18 07:44 12/20/18 08:38 12/20/18 07:44 12/20/18 07:44 12/20/18 07:44 Intake and Output: 12/20/18 12/20/18 06:59 18:59 Intake Total 1300 920 Balance 1300 920 - Medications Medications: Current Medications Acetaminophen (Tylenol 325mg Tab) 650 mg PO Q6 PRN PRN Reason: Fever >100.4 F Albuterol/Ipratropium (Duoneb 3 Mg/0.5 Mg (3 Ml) Ud) 3 ml INH RQ4 [facility] Last Admin: 12/20/18 07:45 Dose: 3 ml Albuterol/Ipratropium (Duoneb 3 Mg/0.5 Mg (3 Ml) Ud) 3 ml INH RQ6 PRN PRN Reason: Shortness of Breath Apixaban (Eliquis) 2.5 mg PO BID [facility] Last Admin: 12/20/18 10:02 Dose: 2.5 mg Donepezil HCl (Aricept) 5 mg PO [facility] Last Admin: 12/19/18 21:06 Dose: 5 mg Ferric Sodium Gluconate Complex (Ferrlecit) 125 mg IVPB DAILY [facility] Stop: 12/23/18 10:31 Last Admin: 12/20/18 09:56 Dose: 125 mg Finasteride (Proscar) 5 mg PO DAILY [facility] Last Admin: 12/20/18 10:01 Dose: 5 mg Vancomycin HCl 1,000 mg/ (Sodium Chloride) 250 mls @ 166.6 mls/hr IVPB Q12H [facility]; Protocol Last Admin: 12/20/18 05:56 Dose: 166.6 mls/hr Azithromycin 500 mg/ Sodium (Chloride) 250 mls @ 250 mls/hr IVPB 1600 [facility]; Protocol Last Admin: 12/19/18 16:00 Dose: 250 mls/hr Cefepime HCl 2 gm/ Sodium (Chloride) 100 mls @ 100 mls/hr IVPB Q12H [facility]; Protocol Last Admin: 12/20/18 01:38 Dose: 100 mls/hr Latanoprost (Xalatan Opht) 0.05 ml OU HS [facility] Last Admin: 12/19/18 21:06 Dose: Not Given Lorazepam (Ativan) 1 mg IVP Q8H PRN PRN Reason: Agitation Last Admin: 12/19/18 02:56 Dose: 1 mg Rosuvastatin Calcium (Crestor) 10 mg PO HS [facility] Last Admin: 12/19/18 21:06 Dose: 10 mg Saccharomyces Boulardii (Florastor) 250 mg PO BID [facility] Last Admin: 12/20/18 10:02 Dose: 250 mg Verapamil HCl (Calan Sr Tab) 120 mg PO DAILY [facility] Last Admin: 12/20/18 10:02 Dose: 120 mg - Labs Labs: 12/20/18 08:14 12/20/18 08:14 PT 12.3 SECONDS (9.7-12.2) H 12/16/18 04:22 INR 1.1 12/16/18 04:22 APTT 29 SECONDS (21-34) 12/16/18 04:22 - Additional Findings Additional findings: - Constitutional Appears: Non-toxic, No Acute Distress, Chronically Ill - Head Exam Head Exam: ATRAUMATIC, NORMAL INSPECTION, NORMOCEPHALIC - Eye Exam Eye Exam: EOMI, Normal appearance. absent: Scleral icterus - ENT Exam ENT Exam: Mucous Membranes Moist - Respiratory Exam Respiratory Exam: Decreased Breath Sounds, Clear to Ausculation Bilateral, NORMAL BREATHING PATTERN. absent: Accessory Muscle Use - Cardiovascular Exam Cardiovascular Exam: RRR, +S1, +S2 - GI/Abdominal Exam GI & Abdominal Exam: Soft. absent: Tenderness - Extremities Exam Extremities Exam: Normal Capillary Refill. absent: Pedal Edema - Neurological Exam Neurological Exam: Alert, Awake - Psychiatric Exam Psychiatric exam: Anxious - Skin Skin Exam: Dry, Intact, Normal Color, Warm Assessment and Plan - Assessment and Plan (Free Text) Assessment: Sepsis 2/2 Health Care Associated Pneumonia Tachycardia and Febrile on Admission, improved Cxray (12/20/18): right sided pulmonary infiltrate grossly unchanged. small bilateral pleural effusion. Cxray (12/16/18): interval worsening infiltrate coalescent right lung flu negative lactate on admission 3.9, decreased to 1.6 ID- Dr. Pastrana consulted, help appreciated meds: Vancomycin 1000mg ivpb q12h Azithromycin 500mg ivpb daily Cefepime 2gm Q12H [facility] 250mg po BID Duonebs q4h concepción, q6h prn Tylenol 650mg po q6h prn Normocytic Anemia stable Iron <10, TIBC 237, % sat 4.21, Folate >20, B12 526, Ferritin 55.8 postpone iron supplementation 2/2 iron promoting microbial growth during current infection Stool Occult Blood negative continue Eliquis, HgB stable Afib Eliquis 2.5mg po BID Verapamil 120mg po daily Cardio- Dr. Sanchez consulted, help appreciated Dementia Aricept 5mg po HS Ativan 1mg po q12h prn for agitation BPH Proscar 5mg po daily Glaucoma Latanoprost .05 OU HS Hx CVA Crestor 10mg po HS Consider ASA 81 Daily Prophylaxis on Eliquis, SCDs Patient seen and discussed with Dr. Norris
[2018-12-20] MEDS: Azithromycin 500 MG in Sodium Chloride 0.9% 250 ML IVPB SCH (17:49)
[2018-12-20] MEDS: Latanoprost 2.5 ml Opht Soln OU SCH (21:49)
[2018-12-21] MEDS: Cefepime 2 GM in Sodium Chloride 0.9% 100 ML IVPB SCH ×2 (02:35→13:51)
[2018-12-21] MEDS: Albuterol-Ipratrop 3 mg / 0.5 (3 ml) UD INH SCH ×5 (03:18→19:16)
[2018-12-21 07:21] LABS: BASO # 0.1 K/uL (0.0-0.2); EOS # 0.1 K/uL (0.0-0.7); EOS % 2.2 % (0.0-4.0); HEMOGLOBIN 8.4 g/dL (12.0-18.0); LYMPH # 0.5 K/uL (1.0-4.3); LYMPH % 8.2 % (20.0-40.0); MEAN CORPUSCULAR HEMOGLOBIN 27.7 pg (27.0-31.0); MEAN CORPUSCULAR HGB CONC 32.2 g/dL (33.0-37.0); MEAN PLATELET VOLUME 7.3 fL (7.2-11.7); MONO # 0.7 K/uL (0.0-0.8); MONO % 11.5 % (0.0-10.0); NEUT # 4.8 K/uL (1.8-7.0); NEUT % 77.1 % (50.0-75.0); NRBC % 0.1 % (0.0-2.0); PLATELET COUNT 282 K/uL (130-400); RBC 3.03 Mil/uL (4.40-5.90); RED CELL DISTRIBUTION WIDTH 18.7 % (11.5-14.5); WHITE BLOOD COUNT 6.2 K/uL (4.8-10.8)
[2018-12-21 08:10] LABS: ALB/GLOB RATIO 0.8 (1.0-2.1); ALBUMIN 2.5 g/dL (3.5-5.0); ALT/SGPT 14 U/L (21-72); AST/SGOT 24 U/L (17-59); BLOOD UREA NITROGEN 13 mg/dL (9-20); CALCIUM 8.6 mg/dl (8.6-10.4); GFR NON-AFRICAN AMERICAN > 60
--- NOTE | 2018-12-21 10:27 | CP.PCM.PN ---
Subjective - Date & Time of Evaluation Date of Evaluation: 12/21/18 Time of Evaluation: 10:27 - Subjective Subjective: PGY2 Medicine Note for Dr. Norris Patient seen and examined this morning at bedside. No acute events overnight. Patient is sitting up in a chair at bedside. He continuously states that he wants to go home. Patient denies any complaints at this time. Objective - Vital Signs/Intake and Output Vital Signs (last 24 hours): Temp Pulse Resp BP Pulse Ox 98.8 F 98 H 20 132/82 96 12/21/18 08:00 12/21/18 08:00 12/21/18 08:00 12/21/18 08:00 12/21/18 08:00 - Medications Medications: Current Medications Acetaminophen (Tylenol 325mg Tab) 650 mg PO Q6 PRN PRN Reason: Fever >100.4 F Albuterol/Ipratropium (Duoneb 3 Mg/0.5 Mg (3 Ml) Ud) 3 ml INH RQ4 [facility] Last Admin: 12/21/18 03:18 Dose: 3 ml Albuterol/Ipratropium (Duoneb 3 Mg/0.5 Mg (3 Ml) Ud) 3 ml INH RQ6 PRN PRN Reason: Shortness of Breath Apixaban (Eliquis) 2.5 mg PO BID [facility] Last Admin: 12/20/18 17:48 Dose: 2.5 mg Donepezil HCl (Aricept) 5 mg PO HS [facility] Last Admin: 12/20/18 21:49 Dose: 5 mg Finasteride (Proscar) 5 mg PO DAILY [facility] Last Admin: 12/20/18 10:01 Dose: 5 mg Azithromycin 500 mg/ Sodium (Chloride) 250 mls @ 250 mls/hr IVPB 1600 [facility]; Protocol Last Admin: 12/20/18 17:49 Dose: 250 mls/hr Cefepime HCl 2 gm/ Sodium (Chloride) 100 mls @ 100 mls/hr IVPB Q12H [facility]; Protocol Last Admin: 12/21/18 02:35 Dose: 100 mls/hr Vancomycin HCl 1,000 mg/ (Sodium Chloride) 250 mls @ 166.6 mls/hr IVPB DAILY [facility]; Protocol Latanoprost (Xalatan Opht) 0.05 ml OU HS [facility] Last Admin: 03/18/19 21:49 Dose: 0.05 ml Lorazepam (Ativan) 1 mg IVP Q8H PRN PRN Reason: Agitation Last Admin: 12/19/18 02:56 Dose: 1 mg Rosuvastatin Calcium (Crestor) 10 mg PO HS [facility] Last Admin: 12/20/18 21:49 Dose: 10 mg Saccharomyces Boulardii (Florastor) 250 mg PO BID [facility] Last Admin: 12/20/18 17:48 Dose: 250 mg Verapamil HCl (Calan Sr Tab) 120 mg PO DAILY [facility] Last Admin: 12/20/18 10:02 Dose: 120 mg - Labs Labs: 12/21/18 07:14 12/21/18 07:14 PT 12.3 SECONDS (9.7-12.2) H 12/16/18 04:22 INR 1.1 12/16/18 04:22 APTT 29 SECONDS (21-34) 12/16/18 04:22 - Additional Findings Additional findings: - Constitutional Appears: Non-toxic, No Acute Distress, Chronically Ill - Head Exam Head Exam: ATRAUMATIC, NORMAL INSPECTION, NORMOCEPHALIC - Eye Exam Eye Exam: EOMI, Normal appearance. absent: Scleral icterus - ENT Exam ENT Exam: Mucous Membranes Moist - Respiratory Exam Respiratory Exam: Decreased Breath Sounds, Clear to Ausculation Bilateral, NORMAL BREATHING PATTERN. absent: Accessory Muscle Use - Cardiovascular Exam Cardiovascular Exam: RRR, +S1, +S2 - GI/Abdominal Exam GI & Abdominal Exam: Soft. absent: Tenderness - Extremities Exam Extremities Exam: Normal Capillary Refill. absent: Pedal Edema - Neurological Exam Neurological Exam: Alert, Awake - Psychiatric Exam Psychiatric exam: Anxious - Skin Skin Exam: Dry, Intact, Normal Color, Warm Assessment and Plan - Assessment and Plan (Free Text) Plan: Sepsis 2/2 Health Care Associated Pneumonia Tachycardia and Febrile on Admission, improved Cxray (12/20/18): right sided pulmonary infiltrate grossly unchanged. small bilateral pleural effusion. Cxray (12/16/18): interval worsening infiltrate coalescent right lung flu negative lactate on admission 3.9, decreased to 1.6 ID- Dr. Pastrana consulted, help appreciated Medications: Vancomycin 1000mg ivpb daily Azithromycin 500mg ivpb daily Cefepime 2gm Q12H Florastor 250mg po BID Duonebs q4h concepción, q6h prn Tylenol 650mg po q6h prn Normocytic Anemia stable Iron <10, TIBC 237, % sat 4.21, Folate >20, B12 526, Ferritin 55.8 postpone iron supplementation 2/2 iron promoting microbial growth during current infection Stool Occult Blood negative continue Eliquis, HgB stable Afib Cardio- Dr. Sanchez consulted, help appreciated Eliquis 2.5mg po BID Verapamil 120mg po daily Diltiazem 30mg po TID [facility] Aricept 5mg po HS Ativan 1mg po q12h prn for agitation BPH Proscar 5mg po daily Glaucoma Latanoprost .05 OU HS Hx CVA Crestor 10mg po HS Consider ASA 81 Daily Prophylaxis on Eliquis, SCDs Patient seen and discussed with Dr. Norris
[2018-12-21 11:06] LABS: ANISOCYTOSIS SLIGHT; EOSINOPHIL 1 % (0-4); LYMPHOCYTE 8 % (20-40); MONOCYTE 11 % (0-10); NEUTROPHIL 80 % (50-75); PLATELET ESTIMATE NORMAL (NORMAL); TOTAL CELLS COUNTED 100
[2018-12-21 11:07] LABS: HYPOCHROMIC SLIGHT; OVALOCYTES SLIGHT
[2018-12-21] MEDS: Saccharomyces Boulardi 250 mg Cap PO SCH ×2 (11:10→17:31)
[2018-12-21] MEDS: Verapamil 120 mg ER Tab PO SCH (11:11)
--- NOTE | 2018-12-21 12:17 | CP.PCM.PN ---
Subjective - Date & Time of Evaluation Date of Evaluation: 12/21/18 Time of Evaluation: 08:00 - Subjective Subjective: examined at bedside chart reviewed orders signed Objective - Vital Signs/Intake and Output Vital Signs (last 24 hours): Temp Pulse Resp BP Pulse Ox 98.8 F 98 H 20 132/82 96 12/21/18 08:00 12/21/18 08:00 12/21/18 08:00 12/21/18 08:00 12/21/18 08:00 - Medications Medications: Current Medications Acetaminophen (Tylenol 325mg Tab) 650 mg PO Q6 PRN PRN Reason: Fever >100.4 F Albuterol/Ipratropium (Duoneb 3 Mg/0.5 Mg (3 Ml) Ud) 3 ml INH RQ4 [facility] Last Admin: 12/21/18 07:40 Dose: 3 ml Albuterol/Ipratropium (Duoneb 3 Mg/0.5 Mg (3 Ml) Ud) 3 ml INH RQ6 PRN PRN Reason: Shortness of Breath Apixaban (Eliquis) 2.5 mg PO BID [facility] Last Admin: 12/21/18 11:11 Dose: 2.5 mg Donepezil HCl (Aricept) 5 mg PO HS [facility] Last Admin: 12/20/18 21:49 Dose: 5 mg Finasteride (Proscar) 5 mg PO DAILY [facility] Last Admin: 12/21/18 11:10 Dose: 5 mg Azithromycin 500 mg/ Sodium (Chloride) 250 mls @ 250 mls/hr IVPB 1600 [facility]; Protocol Last Admin: 12/20/18 17:49 Dose: 250 mls/hr Cefepime HCl 2 gm/ Sodium (Chloride) 100 mls @ 100 mls/hr IVPB Q12H [facility]; Protocol Last Admin: 12/21/18 02:35 Dose: 100 mls/hr Vancomycin HCl 1,000 mg/ (Sodium Chloride) 250 mls @ 166.6 mls/hr IVPB DAILY [facility]; Protocol Last Admin: 12/21/18 11:11 Dose: 166.6 mls/hr Latanoprost (Xalatan Opht) 0.05 ml OU HS [facility] Last Admin: 12/20/18 21:49 Dose: 0.05 ml Lorazepam (Ativan) 1 mg IVP Q8H PRN PRN Reason: Agitation Last Admin: 12/19/18 02:56 Dose: 1 mg Rosuvastatin Calcium (Crestor) 10 mg PO HS [facility] Last Admin: 12/20/18 21:49 Dose: 10 mg Saccharomyces Boulardii (Florastor) 250 mg PO BID [facility] Last Admin: 12/21/18 11:10 Dose: 250 mg Verapamil HCl (Calan Sr Tab) 120 mg PO DAILY [facility] Last Admin: 12/21/18 11:11 Dose: 120 mg - Labs Labs: 12/21/18 07:14 12/21/18 07:14 PT 12.3 SECONDS (9.7-12.2) H 12/16/18 04:22 INR 1.1 12/16/18 04:22 APTT 29 SECONDS (21-34) 12/16/18 04:22 - Constitutional Appears: Confused, Cachectic, Chronically Ill - Head Exam Head Exam: NORMOCEPHALIC - Eye Exam Eye Exam: EOMI, Normal appearance, PERRL Pupil Exam: NORMAL ACCOMODATION, PERRL - ENT Exam ENT Exam: Mucous Membranes Moist, Normal Exam - Neck Exam Neck Exam: Full ROM, Normal Inspection. absent: Lymphadenopathy - Respiratory Exam Respiratory Exam: Clear to Ausculation Bilateral, NORMAL BREATHING PATTERN - Cardiovascular Exam Cardiovascular Exam: REGULAR RHYTHM, +S1, +S2. absent: Murmur - GI/Abdominal Exam GI & Abdominal Exam: Soft, Normal Bowel Sounds. absent: Tenderness - Rectal Exam Rectal Exam: Deferred - Exam Exam: NORMAL INSPECTION - Extremities Exam Extremities Exam: Full ROM, Normal Capillary Refill, Normal Inspection. absent: Joint Swelling, Pedal Edema - Back Exam Back Exam: NORMAL INSPECTION - Neurological Exam Neurological Exam: Alert, Awake, CN II-XII Intact, Normal Gait, Oriented x3 - Psychiatric Exam Psychiatric exam: Normal Affect, Normal Mood - Skin Skin Exam: Dry, Intact, Normal Color, Warm Assessment and Plan (1) CVA (cerebral vascular accident) Status: Acute (2) Sepsis Status: Acute - Assessment and Plan (Free Text) Assessment: cont IV antibiotics, bronchodilators, PT
[2018-12-21] MEDS: Azithromycin 500 MG in Sodium Chloride 0.9% 250 ML IVPB SCH (15:49)
[2018-12-21] MEDS ORDERED: Azithromycin 500 MG in Sodium Chloride 0.9% 250 ML IVPB SCH (17:00)
[2018-12-21] MEDS: Latanoprost 2.5 ml Opht Soln OU SCH (22:35)
[2018-12-22] MEDS: Albuterol-Ipratrop 3 mg / 0.5 (3 ml) UD INH SCH ×3 (00:09→19:59)
[2018-12-22] MEDS: Cefepime 2 GM in Sodium Chloride 0.9% 100 ML IVPB SCH ×2 (02:07→14:23)
[2018-12-22 06:27] LABS: BASO # 0.1 K/uL (0.0-0.2); BASO % 0.8 % (0.0-2.0); EOS % 0.1 % (0.0-4.0); HEMOGLOBIN 8.7 g/dL (12.0-18.0); LYMPH # 0.6 K/uL (1.0-4.3); LYMPH % 8.2 % (20.0-40.0); MEAN CELL VOLUME 85.8 fL (80.0-94.0); MEAN CORPUSCULAR HEMOGLOBIN 27.9 pg (27.0-31.0); MEAN CORPUSCULAR HGB CONC 32.5 g/dL (33.0-37.0); MONO # 0.9 K/uL (0.0-0.8); NEUT # 6.2 K/uL (1.8-7.0); NEUT % 79.9 % (50.0-75.0); PLATELET COUNT 261 K/uL (130-400); RBC 3.12 Mil/uL (4.40-5.90); RED CELL DISTRIBUTION WIDTH 18.6 % (11.5-14.5); WHITE BLOOD COUNT 7.7 K/uL (4.8-10.8)
[2018-12-22 06:48] LABS: ALB/GLOB RATIO 0.9 (1.0-2.1); ALBUMIN 2.9 g/dL (3.5-5.0); ALT/SGPT 11 U/L (21-72); AST/SGOT 45 U/L (17-59); BLOOD UREA NITROGEN 20 mg/dL (9-20); CALCIUM 8.5 mg/dl (8.6-10.4); GFR NON-AFRICAN AMERICAN > 60
[2018-12-22 08:36] LABS: BANDS 1 % (0-2); BASOPHIL 1 % (0-2); LYMPHOCYTE 7 % (20-40); MONOCYTE 10 % (0-10); TOTAL CELLS COUNTED 100
[2018-12-22 08:37] LABS: ANISOCYTOSIS SLIGHT; HYPOCHROMIC SLIGHT; NEUTROPHIL 81 % (50-75); OVALOCYTES SLIGHT; PLATELET ESTIMATE NORMAL (NORMAL); POIKILOCYTOSIS SLIGHT; TARGET CELLS SLIGHT
[2018-12-22] MEDS: Saccharomyces Boulardi 250 mg Cap PO SCH ×2 (10:21→19:06)
[2018-12-22] MEDS: Verapamil 120 mg ER Tab PO SCH (10:22)
--- NOTE | 2018-12-22 12:46 | CP.PCM.PN ---
Subjective - Date & Time of Evaluation Date of Evaluation: 12/22/18 Time of Evaluation: 12:44 - Subjective Subjective: Medicine Note for Dr. Norris's Service Patient was seen and examined at bedside. Patient has a productive cough, however having difficulty spitting out phlegm. Objective - Vital Signs/Intake and Output Vital Signs (last 24 hours): Temp Pulse Resp BP Pulse Ox 99.6 F 107 H 20 132/77 91 L 12/22/18 08:00 12/22/18 08:00 12/22/18 08:00 12/22/18 08:00 12/22/18 08:00 Intake and Output: 12/22/18 12/22/18 06:59 18:59 Intake Total 150 300 Output Total 550 Balance -400 300 - Medications Medications: Current Medications Acetaminophen (Tylenol 325mg Tab) 650 mg PO Q6 PRN PRN Reason: Fever >100.4 F Last Admin: 12/21/18 13:51 Dose: 650 mg Acetylcysteine (Acetylcysteine 20%) 4 ml INH RQ6 [facility] Albuterol/Ipratropium (Duoneb 3 Mg/0.5 Mg (3 Ml) Ud) 3 ml INH RQ4 [facility] Last Admin: 12/22/18 03:40 Dose: 3 ml Apixaban (Eliquis) 2.5 mg PO BID [facility] Last Admin: 12/22/18 10:21 Dose: 2.5 mg Benzonatate (Tessalon Perles) 100 mg PO TID [facility] Diltiazem HCl (Cardizem) 30 mg PO TID [facility] Last Admin: 12/22/18 10:22 Dose: 30 mg Donepezil HCl (Aricept) 5 mg PO HS [facility] Last Admin: 12/21/18 22:35 Dose: 5 mg Finasteride (Proscar) 5 mg PO DAILY [facility] Last Admin: 12/22/18 10:21 Dose: 5 mg Cefepime HCl 2 gm/ Sodium (Chloride) 100 mls @ 100 mls/hr IVPB Q12H [facility]; Protocol Last Admin: 12/22/18 02:07 Dose: 100 mls/hr Vancomycin HCl 1,000 mg/ (Sodium Chloride) 250 mls @ 166.6 mls/hr IVPB DAILY [facility]; Protocol Last Admin: 12/22/18 10:22 Dose: 166.6 mls/hr Latanoprost (Xalatan Opht) 0.05 ml OU HS [facility] Last Admin: 12/21/18 22:35 Dose: 0.05 ml Lorazepam (Ativan) 1 mg IVP Q8H PRN PRN Reason: Agitation Last Admin: 12/21/18 22:35 Dose: 1 mg Rosuvastatin Calcium (Crestor) 10 mg PO HS [facility] Last Admin: 12/21/18 22:35 Dose: 10 mg Saccharomyces Boulardii (Florastor) 250 mg PO BID [facility] Last Admin: 12/22/18 10:21 Dose: 250 mg Verapamil HCl (Calan Sr Tab) 120 mg PO DAILY [facility] Last Admin: 12/22/18 10:22 Dose: 120 mg - Labs Labs: 12/22/18 06:19 12/22/18 06:19 PT 12.3 SECONDS (9.7-12.2) H 12/16/18 04:22 INR 1.1 12/16/18 04:22 APTT 29 SECONDS (21-34) 12/16/18 04:22 - Constitutional Appears: No Acute Distress, Cachectic, Chronically Ill - Head Exam Head Exam: ATRAUMATIC, NORMAL INSPECTION, NORMOCEPHALIC - Eye Exam Eye Exam: EOMI, Normal appearance, PERRL Pupil Exam: NORMAL ACCOMODATION - ENT Exam ENT Exam: Mucous Membranes Dry - Respiratory Exam Respiratory Exam: Decreased Breath Sounds, Rhonchi - Cardiovascular Exam Cardiovascular Exam: Irregular Rhythm, +S1, +S2 - GI/Abdominal Exam GI & Abdominal Exam: Soft, Normal Bowel Sounds. absent: Distended, Tenderness - Extremities Exam Extremities Exam: Normal Inspection. absent: Pedal Edema, Tenderness - Neurological Exam Neurological Exam: Alert, Awake - Psychiatric Exam Psychiatric exam: Normal Affect, Normal Mood - Skin Skin Exam: Dry, Intact, Normal Color, Warm Assessment and Plan - Assessment and Plan (Free Text) Plan: Sepsis 2/2 Health Care Associated Pneumonia ID- Dr. Pastrana consulted, help appreciated Tachycardia and Febrile on Admission, improved Cxray (12/20/18): right sided pulmonary infiltrate grossly unchanged. small bilateral pleural effusion. Cxray (12/16/18): interval worsening infiltrate coalescent right lung flu negative lactate on admission 3.9, decreased to 1.6 Medications: Vancomycin 1000mg ivpb daily Azithromycin 500mg ivpb daily Cefepime 2gm Q12H Florastor 250mg po BID Duonebs q4h concepción, q6h prn Tylenol 650mg po q6h prn Normocytic Anemia stable Iron <10, TIBC 237, % sat 4.21, Folate >20, B12 526, Ferritin 55.8 postpone iron supplementation 2/2 iron promoting microbial growth during current infection Stool Occult Blood negative continue Eliquis, HgB stable Afib -- Cardio- Dr. Sanchez consulted, help appreciated Eliquis 2.5mg po BID Verapamil 120mg po daily Diltiazem 30mg po TID Dementia Aricept 5mg po HS Ativan 1mg po q12h prn for agitation BPH Proscar 5mg po daily Glaucoma Latanoprost .05 OU HS Hx CVA Crestor 10mg po HS Consider ASA 81 Daily Prophylaxis on Eliquis, SCDs Disposition: Once patient is clinically stable, he will be discharged home with , as patient has been denied from multiple SARs due to his behavior. DW Dr. Norris, Laura Baron DO, PGY2
[2018-12-22] MEDS ORDERED: Succinylcholine Chloride 20 mg/ml Syr (5 ml) IV ONE (13:00)
[2018-12-22] MEDS ORDERED: Etomidate 20 mg/10ml Inj IV ONE (13:00)
--- NOTE | 2018-12-22 15:34 | PCM.RRT ---
PHYSIOTHERAPY PRACTICE MANAGER Nurses Assessment - Situation Date: 12/22/18 PHYSIOTHERAPY PRACTICE MANAGER Reason for Call: O2 Saturation below 90% PHYSIOTHERAPY PRACTICE MANAGER Called By: RN - IV IV Inserted during PHYSIOTHERAPY PRACTICE MANAGER?: Yes New IV Insertion Tolerance: Good - Respiratory PHYSIOTHERAPY PRACTICE MANAGER Delivery Method: Non Rebreather @% Received Nebulizer Treatments: No Was the Patient Ventilated with Bag/Mask 100% O2?: Yes Secretions Suctioned?: Yes Was the Patient Intubated?: Yes Was the Patient Placed on a Ventilator?: Yes - Diagnostic Test Ordered Chest X-Ray: Yes - Stat Labs Ordered PHYSIOTHERAPY PRACTICE MANAGER Stat Labs Ordered: CBC, BMP, TROPONIN, LACTIC ACID, ABG CPR started during PHYSIOTHERAPY PRACTICE MANAGER?: No - Constitutional Appears: In Acute Distress, Cachectic, Chronically Ill - Head Head Exam: ATRAUMATIC, NORMAL INSPECTION, NORMOCEPHALIC - Eyes Eye Exam: EOMI, Normal appearance, PERRL - Respiratory Exam Respiratory Exam: Decreased Breath Sounds, Rhonchi - Cardiovascular Exam Cardiovascular Exam: Tachycardia, Irregular Rhythm - GI/Abdominal Exam GI & Abdominal Exam: Soft, Normal Bowel Sounds. absent: Distended, Tenderness - Neurological Exam Neurological Exam: Alert, Awake - Extremities Exam Extremities Exam: Normal Inspection. absent: Pedal Edema, Tenderness Plan - Assessment of Findings&Treatment Plan PHYSIOTHERAPY PRACTICE MANAGER - hypoxia Patient was seen earlier on rounds with O2 sat of 91 % on NC. After rounds a consult for palliative was made to determine code status, in light of multiple intubations throughout admissions in [facility], [place] and also in [facility] (most recent was a few weeks prior to this admission, where he was intubated 3 times during that [facility] admission). ABG was ordered at that time. As per nurse ABG unable to be retrieved, 3 attempts were made. During PHYSIOTHERAPY PRACTICE MANAGER patient was hypoxic at 60 % on NC. He was placed on nonrebreather and pulse ox was low 80s. Due to history of severe (with no surgical intervention), patient was intubated by Anesthesia. Son was called at this point to determine code status as patient is demented, the is demented. Son is not particularly involved in the patient's care directly. Patient's son made aware of current state and asked to come in to speak to palliative care and primary physician to discuss goals of care due to the patient's poor prognosis.
--- NOTE | 2018-12-22 15:54 | PCM.ANES ---
Anesthesia Emergent Intubation - Diagnosis Working Diagnosis:: respiratory failure - Consult Reason for Consult:: endotracheal intubation - Pre-Intubation Vital Signs Oxygen Delivery Method: Ambu-Bag Level Of Consciousness: Drowsy, Lethargic Intubation Meds Given: Etomidate (10 mg, rocuronium 100 mg) - Method of Intubation Intubation Method: Oral ETT ETT Size: 8 Lipline@: 22 Easy: Yes Atramatic: Yes - Placement Confirmation Breath Sounds Present & Equal Bilaterally: Yes Gurgling Sounds Not Audible at Epigastrum: Yes Positive EtCO2: Yes Recommendations: Ventilator, Chest X Ray, ABG (recommend sedation while on vent)
[2018-12-22] MEDS ORDERED: Propofol 10 mg/ml 1,000 MG/100 ML VIAL IV PRN (15:57)
--- NOTE | 2018-12-22 15:57 | CP.PCM.CON ---
History of Present Illness - History of Present Illness History of Present Illness: ICU Consult Note for Dr. Trimble This is an 83 y o male PMhx severe aortic stenosis (hx family refusing further w/u on prior admission as per chart review), paroxysmal A-fib, HTN, and dementia, admitted for sepsis 2/2 to [facility]. Reason for ICU consult was for hypoxia. MEAT PASSER was called today on medical floor for hypoxia and O2 sat of 60% on NC. Pt was placed on non-rebreather and pulse ox was low 80s. Due to hx of severe (with no surgical intervention), pt was intubated by Anesthesia. Pt's son was called at that time to determine code status since pt is demented and at bedside is also demented. Further ROS unobtainable due to pt status of respiratory distress. Pt was transferred to ICU and had R internal jugular triple lumen catheter placed. Pt was also hypertensive with BP in ICU 159/101 and tachycardic into the 120s. Currently intubated and sedated. PMhx: as noted above PSurgHx: unknown Allergies: NKDA Current meds: reviewed as per HUSAM Abdul hx: unknown Soc hx: unknown PMD: Dr. Norris Review of Systems - Review of Systems Systems not reviewed;Unavailable: Respiratory Distress, Intubated Past Patient History - Past Medical History & Family History Past Medical History?: No - Past Social History Smoking Status: Unknown If Ever Smoked - CARDIAC Hx Atrial Fibrillation: Yes Hx Hypertension: No Hx Pacemaker: No - PULMONARY Hx Respiratory Disorders: No Hx Tuberculosis: No - NEUROLOGICAL Hx Dementia: Yes Hx Seizures: No - HEENT Hx HEENT Problems: Yes Hx Glaucoma: Yes - RENAL Hx Chronic Kidney Disease: No - ENDOCRINE/METABOLIC Hx Endocrine Disorders: No - HEMATOLOGICAL/ONCOLOGICAL Hx Human Immunodeficiency Virus (HIV): No - INTEGUMENTARY Hx Dermatological Problems: No - MUSCULOSKELETAL/RHEUMATOLOGICAL Hx Falls: Yes - GASTROINTESTINAL Hx Gastrointestinal Disorders: Yes Other/Comment: liver abscess - GENITOURINARY/GYNECOLOGICAL Hx Sexually Transmitted Disorders: No - PSYCHIATRIC Hx Substance Use: No - SURGICAL HISTORY Hx Cholecystectomy: Yes - ANESTHESIA Hx Anesthesia: Yes Hx Anesthesia Reactions: No Hx Malignant Hyperthermia: No Has any member of the family had a problem w/ anesthesia?: No Meds Allergies/Adverse Reactions: Allergies Allergy/AdvReac Type Severity Reaction Status Date / Time No Known Allergies Allergy Verified 03/14/19 03:29 - Medications Medications: Current Medications Acetaminophen (Tylenol 325mg Tab) 650 mg PO Q6 PRN PRN Reason: Fever >100.4 F Last Admin: 12/21/18 13:51 Dose: 650 mg Acetylcysteine (Acetylcysteine 20%) 4 ml INH RQ6 [facility] Albuterol/Ipratropium (Duoneb 3 Mg/0.5 Mg (3 Ml) Ud) 3 ml INH RQ4 [facility] Last Admin: 12/22/18 03:40 Dose: 3 ml Apixaban (Eliquis) 2.5 mg PO BID [facility] Last Admin: 12/22/18 10:21 Dose: 2.5 mg Benzonatate (Tessalon Perles) 100 mg PO TID [facility] Last Admin: 12/22/18 14:23 Dose: 100 mg Diltiazem HCl (Cardizem) 30 mg PO TID [facility] Last Admin: 12/22/18 14:23 Dose: 30 mg Donepezil HCl (Aricept) 5 mg PO HS [facility] Last Admin: 12/21/18 22:35 Dose: 5 mg Finasteride (Proscar) 5 mg PO DAILY [facility] Last Admin: 12/22/18 10:21 Dose: 5 mg Cefepime HCl 2 gm/ Sodium (Chloride) 100 mls @ 100 mls/hr IVPB Q12H [facility]; Pro tocol Last Admin: 12/22/18 14:23 Dose: 100 mls/hr Vancomycin HCl 1,000 mg/ (Sodium Chloride) 250 mls @ 166.6 mls/hr IVPB DAILY [facility]; Protocol Last Admin: 12/22/18 10:22 Dose: 166.6 mls/hr Latanoprost (Xalatan Opht) 0.05 ml OU HS [facility] Last Admin: 12/21/18 22:35 Dose: 0.05 ml Lorazepam (Ativan) 1 mg IVP Q8H PRN PRN Reason: Agitation Last Admin: 12/21/18 22:35 Dose: 1 mg Rosuvastatin Calcium (Crestor) 10 mg PO HS [facility] Last Admin: 12/21/18 22:35 Dose: 10 mg Saccharomyces Boulardii (Florastor) 250 mg PO BID [facility] Last Admin: 12/22/18 10:21 Dose: 250 mg Verapamil HCl (Calan Sr Tab) 120 mg PO DAILY [facility] Last Admin: 12/22/18 10:22 Dose: 120 mg Physical Exam - Constitutional Appears: In Acute Distress, Cachectic, Chronically Ill - Head Exam Head Exam: ATRAUMATIC, NORMOCEPHALIC - Eye Exam Eye Exam: EOMI, Normal appearance, PERRL - ENT Exam ENT Exam: Mucous Membranes Moist - Cardiovascular Exam Cardiovascular Exam: Tachycardia, +S1, +S2 Additional comments: systolic murmur auscultated - GI/Abdominal Exam GI & Abdominal Exam: Normal Bowel Sounds, Soft. absent: Distended, Organomegaly, Tenderness - Extremities Exam Extremities exam: Positive for: normal capillary refill, pedal pulses present. Negative for: pedal edema - Neurological Exam Additional comments: Intubated and sedated - Skin Skin Exam: Dry, Intact, Warm Results - Vital Signs Recent Vital Signs: Last Vital Signs Temp 99.6 F 12/22/18 08:00 Pulse 107 H 12/22/18 08:00 Resp 20 12/22/18 08:00 BP 132/77 12/22/18 08:00 Pulse Ox 91 L 12/22/18 08:00 - Labs Result Diagrams: 12/22/18 17:00 12/22/18 17:00 Labs: Laboratory Results - last 24 hr 12/22/18 12/22/18 06:19 06:19 WBC 7.7 RBC 3.12 L Hgb 8.7 L Hct 26.8 L MCV 85.8 MCH 27.9 MCHC 32.5 L RDW 18.6 H Plt Count 261 MPV 7.0 L Neut % (Auto) 79.9 H Lymph % (Auto) 8.2 L Lamar % (Auto) 11.0 H Eos % (Auto) 0.1 Baso % (Auto) 0.8 Neut # (Auto) 6.2 Lymph # (Auto) 0.6 L Lamar # (Auto) 0.9 H Eos # (Auto) 0.0 Baso # (Auto) 0.1 Neutrophils % (Manual) 81 H Band Neutrophils % 1 Lymphocytes % (Manual) 7 L Monocytes % (Manual) 10 Basophils % (Manual) 1 Platelet Estimate Normal Hypochromasia (manual) Slight Poikilocytosis (manual Slight Anisocytosis (manual) Slight Target Cells Slight Ovalocytes Slight Sodium 135 Potassium 3.8 Chloride 100 Carbon Dioxide 30 Anion Gap 9 L BUN 20 Creatinine 0.9 Est GFR ( Amer) > 60 Est GFR (Non-Af Amer) > 60 Random Glucose 85 Calcium 8.5 L Phosphorus 3.3 Magnesium 1.9 Total Bilirubin 0.6 AST 45 ALT 11 L D Alkaline Phosphatase 106 Total Protein 6.3 Albumin 2.9 L Globulin 3.4 Albumin/Globulin Ratio 0.9 L Assessment & Plan - Assessment and Plan (Free Text) Assessment: 83 y o male PMhx severe aortic stenosis (hx family refusing further w/u on prior admission as per chart review), paroxysmal A-fib, HTN, and dementia, admitted for sepsis 2/2 to [facility]. Reason for ICU consult was for hypoxia. MEAT PASSER was called today on medical floor for hypoxia and O2 sat of 60% on NC. Pt was placed on non-rebreather and pulse ox was low 80s. Due to hx of severe (with no surgical intervention), pt was intubated by Anesthesia. Pt's son was called at that time to determine code status since pt is demented and at bedside is also demented, was instructed to come to hospital for further discussion. Further ROS unobtainable due to pt status of respiratory distress. Pt was transferred to ICU and had R internal jugular triple lumen catheter placed. Pt was also hypertensive with BP in ICU 159/101 and tachycardic into the 120s. Currently intubated and sedated. Plan: Neuro: -Intubated and sedated on Propofol drip -Hx dementia -C/w Aricept, Ativan prn for agitation -Hx CVA, c/w Crestor Cardio: -Tachycardic and hypertensive on presentation -Hx aortic stenosis -Cardiology (Dr. Sanchez) consulted, recs appreciated -Hx A-fib -C/w Eliquis, Verapamil, Diltiazem -Central line placed for poor venous access Pulm: -Respiratory distress, intubated and sedated during MEAT PASSER -Hypoxic on presentation -Recent ABG 7.44/40/182/27.4 -Currently being treated for Sepsis 2/2 to [facility] -C/w Cefepime and Vanco -ID consulted (Dr. Pastrana), recs appreciated -C/w vent settings GI: -NPO -No acute issues at this time ID: -Urine and blood cxs NGTD -Rapid flu neg -Cefepime/Vanco -ID on consult -Leukocytosis, cont to trend Heme: -Normocytic anemia -Iron <10, TIBC 237, % sat 4.21, Folate >20, B12 526, Ferritin 55.8 -Postpone iron supplementation 2/2 iron promoting microbial growth during current infection -Stool Occult Blood negative -C/w Eliquis, Hgb stable Renal: -Hx BPH C/w Proscar -Trend I's/O's PPX: -Eliquis, SCD -Palliative care consulted, recs appreciated Pt seen, examined with, and plan discussed with Dr. Trimble, attending physician. Huey Long DO PGY-1, [employer] Pager #[phone]
--- NOTE | 2018-12-22 16:58 | CP.PCM.PCO ---
Physician Communication Note - Physician Communication Note Physician Communication Note: Jean Ambrose's- cellphone number [phone]
[2018-12-22 17:09] LABS: BASO % 0.3 % (0.0-2.0); HEMOGLOBIN 9.5 g/dL (12.0-18.0); LYMPH # 0.5 K/uL (1.0-4.3); LYMPH % 3.5 % (20.0-40.0); MEAN CELL VOLUME 86.1 fL (80.0-94.0); MEAN CORPUSCULAR HEMOGLOBIN 26.8 pg (27.0-31.0); MEAN CORPUSCULAR HGB CONC 31.1 g/dL (33.0-37.0); MONO # 0.6 K/uL (0.0-0.8); MONO % 4.1 % (0.0-10.0); NEUT # 13.8 K/uL (1.8-7.0); NEUT % 92.1 % (50.0-75.0); PLATELET COUNT 294 K/uL (130-400); RBC 3.56 Mil/uL (4.40-5.90); RED CELL DISTRIBUTION WIDTH 19.6 % (11.5-14.5)
[2018-12-22 17:11] LABS: ABG ALLEN TEST POS; ARTERIAL BLOOD GAS HCO3 27.2 mmol/L (21-28); ARTERIAL BLOOD GAS PCO2 40 mm/Hg (35-45); ARTERIAL BLOOD GAS PH 7.44 (7.35-7.45); ARTERIAL BLOOD GAS PO2 182 mm/Hg (80-100); ARTERIAL BLOOD GAS TCO2 28.4 mmol/L (22-28)
[2018-12-22 17:12] LABS: WHITE BLOOD COUNT 14.9 K/uL (4.8-10.8)
[2018-12-22 17:31] LABS: ALB/GLOB RATIO 0.9 (1.0-2.1); ALBUMIN 2.9 g/dL (3.5-5.0); ALT/SGPT 26 U/L (21-72); AST/SGOT 80 U/L (17-59); BLOOD UREA NITROGEN 23 mg/dL (9-20); CALCIUM 8.5 mg/dl (8.6-10.4); GFR NON-AFRICAN AMERICAN 58
[2018-12-22 17:34] LABS: LYMPHOCYTE 2 % (20-40); MONOCYTE 1 % (0-10); PLATELET ESTIMATE NORMAL (NORMAL); TOTAL CELLS COUNTED 100
[2018-12-22 17:35] LABS: ANISOCYTOSIS SLIGHT; BANDS 9 % (0-2); HYPOCHROMIC SLIGHT; NEUTROPHIL 88 % (50-75); POIKILOCYTOSIS SLIGHT
--- NOTE | 2018-12-22 17:41 | PCM.PROC ---
Procedures Attestation:: I certify that I have explained the specified Operation(s) or Procedure(s), risks, benefits and reasonable alternatives to the Patient and/or other person responsible. The opportunity was given to ask questions and all questions answered - Central Line Placement Right Internal Jugular Triple Lumen Catheter Aseptic technique was employed throughout the procedure: Hand Hygiene done prior to procedure, Full sterile barriers (mask, hair cover, sterile gown, sterile gloves), Full body sterile drape, Chloraprep Antiseptic: 30 second prep for IJ or SC sites CVP Time Out Performed: Yes Pt. Placed on Pulse Ox Monitor: Yes Central Line Prep: Chlorhexidine-Alcohol Combination Local Anesthesia Used: Lidocaine 1% Amount of Anesthesia Used (mls): 2 Ultrasound Used for Placement: Yes Central Line Lumen Inserted: triple Central Line Length: 16 cm (15cm) Post Procedure: Sutured in Place, Good Blood Return, All Ports Aspirated, Flushed, Capped, Sterile Dressing Applied Secured by: Suture Post procedure dressing: Clear vapor permeable, Chlorhexidine disc (Biopatch) Post Procedure X-Ray: Yes Patient Tolerated Procedure: Well Immediate Complications: None
--- NOTE | 2018-12-22 18:01 | RAD ---
HISTORY: hypoxia, sob COMPARISON: Chest x-ray performed 12/20/18 TECHNIQUE: Chest, one view. FINDINGS: Endotracheal tube terminates approximately 4.8 cm above the nessa. Right IJ approach central venous catheter extends the SVC. LUNGS: Moderate right and small left pleural effusions and associated consolidations. Moderate interstitial prominence may reflect infection or edema. No definite pneumothorax. CARDIOVASCULAR: Heart size appears top normal. Atherosclerotic calcifications of the aorta. OSSEOUS STRUCTURES: Osseous demineralization. Degenerative changes. Scoliosis. VISUALIZED UPPER ABDOMEN: Unremarkable. OTHER FINDINGS: None. IMPRESSION: Endotracheal tube terminates approximately 4.8 cm above the nessa. Right IJ approach central venous catheter extends the SVC. Moderate right and small left pleural effusions and associated consolidations. Moderate interstitial prominence may reflect infection or edema.
[2018-12-22] MEDS ORDERED: Metoprolol 1 mg/ml Inj IVP ONE ×2 (19:07→23:28)
[2018-12-22] MEDS: Acetylcysteine 20% Inhal Soln (4ml) INH SCH (19:59)
[2018-12-22] MEDS: Latanoprost 2.5 ml Opht Soln OU SCH (22:41)
[2018-12-23] MEDS: Albuterol-Ipratrop 3 mg / 0.5 (3 ml) UD INH SCH ×6 (00:12→19:48)
[2018-12-23] MEDS: Dextrose 5%/0.45% NS 1,000 ML IV SCH ×2 (00:56→15:51)
[2018-12-23] MEDS: Cefepime 2 GM in Sodium Chloride 0.9% 100 ML IVPB SCH ×2 (01:53→15:40)
[2018-12-23] MEDS ORDERED: Sodium Chloride 0.9% 500 ML IV ONE ×2 (01:59→09:49)
[2018-12-23] MEDS: Acetylcysteine 20% Inhal Soln (4ml) INH SCH ×2 (03:02→08:10)
[2018-12-23 05:36] LABS: ARTERIAL BLOOD GAS HCO3 23.8 mmol/L (21-28); ARTERIAL BLOOD GAS HEMOGLOBIN 9.3 g/dL (11.7-17.4); ARTERIAL BLOOD GAS O2 SAT 97.6 % (95-98); ARTERIAL BLOOD GAS PCO2 28 mm/Hg (35-45); ARTERIAL BLOOD GAS PH 7.49 (7.35-7.45); ARTERIAL BLOOD GAS PO2 127 mm/Hg (80-100); ARTERIAL BLOOD GAS TCO2 22.2 mmol/L (22-28)
[2018-12-23 05:41] LABS: BASO % 0.2 % (0.0-2.0); HEMOGLOBIN 8.2 g/dL (12.0-18.0); LYMPH # 0.9 K/uL (1.0-4.3); LYMPH % 6.7 % (20.0-40.0); MEAN CELL VOLUME 86.9 fL (80.0-94.0); MEAN CORPUSCULAR HEMOGLOBIN 26.8 pg (27.0-31.0); MEAN CORPUSCULAR HGB CONC 30.8 g/dL (33.0-37.0); MEAN PLATELET VOLUME 7.4 fL (7.2-11.7); MONO # 0.7 K/uL (0.0-0.8); MONO % 5.5 % (0.0-10.0); NEUT # 11.6 K/uL (1.8-7.0); NEUT % 87.6 % (50.0-75.0); PLATELET COUNT 219 K/uL (130-400); RBC 3.08 Mil/uL (4.40-5.90); RED CELL DISTRIBUTION WIDTH 19.7 % (11.5-14.5); WHITE BLOOD COUNT 13.2 K/uL (4.8-10.8)
[2018-12-23 06:07] LABS: ALB/GLOB RATIO 0.8 (1.0-2.1); ALBUMIN 2.2 g/dL (3.5-5.0)
[2018-12-23 08:37] LABS: BANDS 25 % (0-2); LYMPHOCYTE 10 % (20-40); MONOCYTE 1 % (0-10); NEUTROPHIL 62 % (50-75); PLATELET ESTIMATE NORMAL (NORMAL); REACTIVE LYMPHOCYTES 2 % (0-0); TOTAL CELLS COUNTED 100
[2018-12-23 08:38] LABS: ANISOCYTOSIS SLIGHT; BURR CELLS SLIGHT; HYPOCHROMIC MODERATE; OVALOCYTES SLIGHT; POIKILOCYTOSIS SLIGHT; TARGET CELLS SLIGHT
--- NOTE | 2018-12-23 09:37 | PQF ---
PROVIDER RESPONSE TEXT: Provider was unable to determine a response for this query. REVIEWER QUERY TEXT: Documentation Clarification Your help is requested in clarifying the following clinical documentation, if you can please further specify in the medical record and discharge summary. The patient's Clinical Indicators include: HPI: ?83 year old male, son reports it seems like he is having a hard time coughing and breath, today appe ared to be shaking a lot, dehydrated, not taking fluids?. V/S: Temp 102.2 F Pulse 111 H WBC: 11.2/14.2 - RBC: 3.90/3.14 - HGB: 10.5/8.2 - HCT: 34.1/27.7 - Lactate: 3.9/1.6. ID Dr. Pastrana documented Assessment: sepsis / dehydration rx pneumonia pending c diff Please consider verify and document it, if agree, in order for us code it first sequenced by the focu s of infection. Query created by: Royce Pride on 12/17/2018 2:32 PM Electronically signed by: Loli Johnson 12/23/2018 9:34 AM
[2018-12-23] MEDS: Verapamil 120 mg ER Tab PO SCH (09:40)
[2018-12-23] MEDS: Saccharomyces Boulardi 250 mg Cap PO SCH ×2 (09:41→18:30)
--- NOTE | 2018-12-23 10:43 | RAD ---
Date of service: 12/23/2018 HISTORY: intubated COMPARISON: 12/22/2018 FINDINGS: LUNGS: There has been interval improvement in the extent of opacity at the right lung base as compared to the prior examination. No new opacity is identified elsewhere. PLEURA: Probable small bilateral pleural effusion. No pneumothorax. CARDIOVASCULAR: ET tube unchanged in position. Right IJ central venous catheter again noted. Normal cardiac size. There is atherosclerotic calcification the thoracic aorta. OSSEOUS STRUCTURES: No significant abnormalities. VISUALIZED UPPER ABDOMEN: Normal. OTHER FINDINGS: None. IMPRESSION: Improving opacity at right base. Probable small bilateral pleural effusion. ET tube and right IJ central venous catheter are unchanged.
--- NOTE | 2018-12-23 16:51 | CP.PCM.PN ---
Subjective - Date & Time of Evaluation Date of Evaluation: 12/23/18 Time of Evaluation: 08:00 - Subjective Subjective: admitted to ICU s/p resp failure intubated Objective - Vital Signs/Intake and Output Vital Signs (last 24 hours): Temp Pulse Resp BP Pulse Ox 97.7 F 124 H 20 83/52 L 100 12/23/18 12:00 12/23/18 15:39 12/23/18 15:39 12/23/18 15:39 12/23/18 15:39 Intake and Output: 12/23/18 12/23/18 06:59 18:59 Intake Total 825 775 Output Total 300 Balance 525 775 - Medications Medications: Current Medications Acetaminophen (Tylenol 325mg Tab) 650 mg PO Q6 PRN PRN Reason: Fever >100.4 F Last Admin: 12/21/18 13:51 Dose: 650 mg Albuterol/Ipratropium (Duoneb 3 Mg/0.5 Mg (3 Ml) Ud) 3 ml INH RQ4 [facility] Last Admin: 12/23/18 11:28 Dose: 3 ml Apixaban (Eliquis) 2.5 mg PO BID [facility] Last Admin: 12/23/18 09:41 Dose: Not Given Diltiazem HCl (Cardizem) 30 mg PO TID [facility] Last Admin: 12/23/18 15:37 Dose: Not Given Donepezil HCl (Aricept) 5 mg PO HS [facility] Last Admin: 12/22/18 22:39 Dose: Not Given Finasteride (Proscar) 5 mg PO DAILY [facility] Last Admin: 12/23/18 09:41 Dose: Not Given Guaifenesin (Robitussin) 100 mg PO BID [facility] Cefepime HCl 2 gm/ Sodium (Chloride) 100 mls @ 100 mls/hr IVPB Q12H [facility]; Protocol Last Admin: 12/23/18 15:40 Dose: 100 mls/hr Vancomycin HCl 1,000 mg/ (Sodium Chloride) 250 mls @ 166.6 mls/hr IVPB DAILY [facility]; Protocol Last Admin: 12/23/18 09:48 Dose: 166.6 mls/hr Acetaminophen (Ofirmev) 100 mls @ 400 mls/hr IV Q6 PRN PRN Reason: for temp 101 and above Stop: 12/23/18 23:25 Last Admin: 12/22/18 23:49 Dose: 400 mls/hr Dextrose/Sodium Chloride (Dextrose 5%/0.45% Ns 1000 Ml) 1,000 mls @ 75 mls/hr IV .[id number] [facility] Last Admin: 12/23/18 15:51 Dose: 75 mls/hr Latanoprost (Xalatan Opht) 0.05 ml OU HS [facility] Last Admin: 12/22/18 22:41 Dose: 0.05 ml Lorazepam (Ativan) 1 mg IVP Q8H PRN PRN Reason: Agitation Last Admin: 12/21/18 22:35 Dose: 1 mg Pantoprazole Sodium (Protonix Inj) 40 mg IVP DAILY [facility] Last Admin: 12/23/18 13:03 Dose: 40 mg Rosuvastatin Calcium (Crestor) 10 mg PO HS [facility] Last Admin: 12/22/18 22:40 Dose: Not Given Saccharomyces Boulardii (Florastor) 250 mg PO BID [facility] Last Admin: 12/23/18 09:41 Dose: Not Given Verapamil HCl (Calan Sr Tab) 120 mg PO DAILY [facility] Last Admin: 12/23/18 09:40 Dose: Not Given - Labs Labs: 12/23/18 05:37 12/23/18 05:37 PT 12.3 SECONDS (9.7-12.2) H 12/16/18 04:22 INR 1.1 12/16/18 04:22 APTT 29 SECONDS (21-34) 12/16/18 04:22 - Constitutional Appears: Confused, Cachectic, Chronically Ill - Head Exam Head Exam: NORMOCEPHALIC - Eye Exam Eye Exam: absent: Scleral icterus - ENT Exam ENT Exam: Mucous Membranes Dry - Neck Exam Neck Exam: absent: Lymphadenopathy - Respiratory Exam Respiratory Exam: Decreased Breath Sounds - Cardiovascular Exam Cardiovascular Exam: REGULAR RHYTHM - GI/Abdominal Exam GI & Abdominal Exam: Distended, Soft - Rectal Exam Rectal Exam: Deferred - Exam Exam: NORMAL INSPECTION - Extremities Exam Extremities Exam: absent: Pedal Edema - Back Exam Back Exam: absent: CVA tenderness (L), CVA tenderness (R) - Neurological Exam Neurological Exam: Altered - Psychiatric Exam Psychiatric exam: Depressed - Skin Skin Exam: Dry Assessment and Plan (1) CVA (cerebral vascular accident) Status: Acute (2) Sepsis Status: Acute (3) Respiratory failure Status: Acute (4) COPD (chronic obstructive pulmonary disease) Status: Acute (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
--- NOTE | 2018-12-23 16:58 | CP.CCUPN ---
<EthanHuey - Last Filed: 12/23/18 18:17> CCU Subjective - Physician Review Subjective (Free Text): ICU Progress Note for Dr. Durham Pt seen and examined at bedside. Currently intubated, unable to obtain HPI or ROS due to pt's current clinical status. No acute events reported overnight by staff. CCU Objective - Vital Signs / Intake & Output Vital Signs (Last 4 hours): Vital Signs Temp Pulse Resp BP Pulse Ox 12/23/18 16:22 123 H 24 106/80 100 12/23/18 16:00 97.4 F L 12/23/18 15:39 124 H 20 83/52 L 100 12/23/18 15:21 145 H 29 H 83/52 L 100 12/23/18 14:20 123 H 20 90/52 L 100 12/23/18 13:21 140 H 34 H 82/60 L 100 Intake and Output (Last 8hrs): Intake & Output 12/23/18 12/23/18 12/23/18 06:59 14:59 22:59 Intake Total 625 700 250 Output Total 300 Balance 325 700 250 Weight 92 lb Intake: Intake, IV Amount 625 700 250 Right IJ Proximal Port 50 100 rt. IJ TLC 625 650 150 Oral 0 Output: Urine 300 Urine, Voided 300 Other: # Bowel Movements 1 1 - Physical Exam Head: Positive for: Atraumatic, Normocephalic Pupils: Positive for: PERRL Conjunctiva: Positive for: Normal Mouth: Positive for: Moist Mucous Membranes Respiratory/Chest: Positive for: Rales, Other (intubated on ventilator) Cardiovascular: Positive for: Murmurs (systolic murmur appreciated), Normal S1, S2, Tachycardic, Rub, Gallop Abdomen: Positive for: Normal Bowel Sounds. Negative for: Tenderness, Distention Lower Extremity: Positive for: Normal Inspection, NORMAL PULSES, Neurovascularly Intact, Capillary Refill < 2 s. Negative for: Edema Neurological: Positive for: Other (intubated) Skin: Positive for: Warm, Dry, Normal Color Psychiatric: Positive for: Other (intubated) - Medications Active Medications: Active Medications Generic Name Dose Route Start Last Admin Trade Name Freq PRN Reason Stop Dose Admin Acetaminophen 650 mg 12/16/18 07:35 12/21/18 13:51 Tylenol 325mg Tab PO 650 mg Q6 PRN Administration Fever >100.4 F Albuterol/Ipratropium 3 ml 12/16/18 08:00 12/23/18 11:28 Duoneb 3 Mg/0.5 Mg (3 Ml) Ud INH 3 ml RQ4 VINCENT Administration Apixaban 2.5 mg 12/16/18 18:00 12/23/18 09:41 Eliquis PO Not Given BID VINCENT Diltiazem HCl 30 mg 12/21/18 14:45 12/23/18 15:37 Cardizem PO Not Given TID VINCENT Donepezil HCl 5 mg 12/16/18 22:00 12/22/18 22:39 Aricept PO Not Given HS VINCENT Finasteride 5 mg 12/16/18 12:00 12/23/18 09:41 Proscar PO Not Given DAILY VINCENT Guaifenesin 100 mg 12/23/18 18:00 Robitussin PO BID VINCENT Cefepime HCl 2 gm/ Sodium 100 mls @ 100 mls/hr 12/17/18 14:30 12/23/18 15:40 Chloride IVPB 100 mls/hr Q12H VINCENT Administration Protocol Vancomycin HCl 1,000 mg/ 250 mls @ 166.6 mls/hr 12/21/18 10:00 12/23/18 09:48 Sodium Chloride IVPB 166.6 mls/hr DAILY VINCENT Administration Protocol Acetaminophen 100 mls @ 400 mls/hr 12/22/18 23:24 12/22/18 23:49 Ofirmev IV 12/23/18 23:25 400 mls/hr Q6 PRN Administration for temp 101 and above Dextrose/Sodium Chloride 1,000 mls @ 75 mls/hr 12/23/18 01:00 12/23/18 15:51 Dextrose 5%/0.45% Ns 1000 Ml IV 75 mls/hr .[id number] VINCENT Administration Latanoprost 0.05 ml 12/16/18 22:00 12/22/18 22:41 Xalatan Opht OU 0.05 ml HS VINCENT Administration Lorazepam 1 mg 12/18/18 18:38 12/21/18 22:35 Ativan IVP 1 mg Q8H PRN Administration Agitation Pantoprazole Sodium 40 mg 12/23/18 12:45 12/23/18 13:03 Protonix Inj IVP 40 mg DAILY VINCENT Administration Rosuvastatin Calcium 10 mg 12/16/18 22:00 12/22/18 22:40 Crestor PO Not Given HS VINCENT Saccharomyces Boulardii 250 mg 12/16/18 12:00 12/23/18 09:41 Florastor PO Not Given BID VINCENT Verapamil HCl 120 mg 12/16/18 12:00 12/23/18 09:40 Calan Sr Tab PO Not Given DAILY VINCENT - Patient Studies Lab Studies: Microbiology Studies 12/22/18 17:00 MRSA Culture (Admit) - Final Naris MRSA NOT DETECTED Lab Studies 12/23/18 12/23/18 12/23/18 Range/Units 11:41 05:37 05:37 WBC 13.2 H (4.8-10.8) K/uL RBC 3.08 L (4.40-5.90) Mil/uL Hgb 8.2 L (12.0-18.0) g/dL Hct 26.7 L (35.0-51.0) % MCV 86.9 (80.0-94.0) fL MCH 26.8 L (27.0-31.0) pg MCHC 30.8 L (33.0-37.0) g/dL RDW 19.7 H (11.5-14.5) % Plt Count 219 (130-400) K/uL MPV 7.4 (7.2-11.7) fL Neut % (Auto) 87.6 H (50.0-75.0) % Lymph % (Auto) 6.7 L (20.0-40.0) % [place] % (Auto) 5.5 (0.0-10.0) % Eos % (Auto) 0.0 (0.0-4.0) % Baso % (Auto) 0.2 (0.0-2.0) % Neut # (Auto) 11.6 H (1.8-7.0) K/uL Lymph # (Auto) 0.9 L (1.0-4.3) K/uL [place] # (Auto) 0.7 (0.0-0.8) K/uL Eos # (Auto) 0.0 (0.0-0.7) K/uL Baso # (Auto) 0.0 (0.0-0.2) K/uL Neutrophils % (Manual) 62 (50-75) % Band Neutrophils % 25 H* (0-2) % Lymphocytes % (Manual) 10 L (20-40) % Reactive Lymphs % 2 H (0-0) % Monocytes % (Manual) 1 (0-10) % Platelet Estimate Normal (NORMAL) Hypochromasia (manual) Moderate Poikilocytosis (manual Slight Anisocytosis (manual) Slight Target Cells Slight Ovalocytes Slight Michael Cells Slight Puncture Site pCO2 (35-45) mm/Hg pO2 (80-100) mm/Hg HCO3 (21-28) mmol/L ABG pH (7.35-7.45) ABG Total CO2 (22-28) mmol/L ABG O2 Saturation (95-98) % ABG Base Excess (-2.0-3.0) mmol/L ABG Hemoglobin (11.7-17.4) g/dL ABG Carboxyhemoglobin (0.5-1.5) % POC ABG HHb (Measured) (0.0-5.0) % ABG Methemoglobin (0.0-3.0) % Naif Test ABG Potassium (3.6-5.2) mmol/L A-a O2 Difference mm/Hg Respiratory Index Hgb O2 Saturation (95.0-98.0) % Sodium 136 (132-148) mmol/l Chloride 104 (98-107) mmol/L Glucose (75-110) mg/dl Lactate (0.7-2.1) mmol/L Vent Mode Mechanical Rate FiO2 % Tidal Volume PEEP Potassium 3.8 (3.6-5.2) mmol/L Carbon Dioxide 26 (22-30) mmol/L Anion Gap 10 (10-20) BUN 30 H (9-20) mg/dL Creatinine 1.4 (0.8-1.5) mg/dL Est GFR ( Amer) 59 Est GFR (Non-Af Amer) 48 POC Glucose (mg/dL) 135 H (65-110) mg/dL Random Glucose 92 (75-110) mg/dL Calcium 8.0 L (8.6-10.4) mg/dl Phosphorus 4.0 (2.5-4.5) mg/dL Magnesium 1.9 (1.6-2.3) mg/dL Total Bilirubin 0.5 (0.2-1.3) mg/dL AST 94 H (17-59) U/L ALT 24 (21-72) U/L Alkaline Phosphatase 80 (38-126) U/L Troponin I (0.00-0.120) ng/mL Total Protein 5.1 L (6.3-8.3) g/dL Albumin 2.2 L D (3.5-5.0) g/dL Globulin 2.9 (2.2-3.9) gm/dL Albumin/Globulin Ratio 0.8 L (1.0-2.1) Procalcitonin (0.19-0.49) NG/ML Arterial Blood Potassium (3.6-5.2) mmol/L 12/23/18 12/23/18 12/22/18 Range/Units 05:19 05:09 23:31 WBC (4.8-10.8) K/uL RBC (4.40-5.90) Mil/uL Hgb (12.0-18.0) g/dL Hct (35.0-51.0) % MCV (80.0-94.0) fL MCH (27.0-31.0) pg MCHC (33.0-37.0) g/dL RDW (11.5-14.5) % Plt Count (130-400) K/uL MPV (7.2-11.7) fL Neut % (Auto) (50.0-75.0) % Lymph % (Auto) (20.0-40.0) % [place] % (Auto) (0.0-10.0) % Eos % (Auto) (0.0-4.0) % Baso % (Auto) (0.0-2.0) % Neut # (Auto) (1.8-7.0) K/uL Lymph # (Auto) (1.0-4.3) K/uL [place] # (Auto) (0.0-0.8) K/uL Eos # (Auto) (0.0-0.7) K/uL Baso # (Auto) (0.0-0.2) K/uL Neutrophils % (Manual) (50-75) % Band Neutrophils % (0-2) % Lymphocytes % (Manual) (20-40) % Reactive Lymphs % (0-0) % Monocytes % (Manual) (0-10) % Platelet Estimate (NORMAL) Hypochromasia (manual) Poikilocytosis (manual Anisocytosis (manual) Target Cells Ovalocytes [place] Cells Puncture Site Rb pCO2 28 L (35-45) mm/Hg pO2 127 H (80-100) mm/Hg HCO3 23.8 (21-28) mmol/L ABG pH 7.49 H (7.35-7.45) ABG Total CO2 22.2 (22-28) mmol/L ABG O2 Saturation 97.6 (95-98) % ABG Base Excess -1.4 (-2.0-3.0) mmol/L ABG Hemoglobin 9.3 L (11.7-17.4) g/dL ABG Carboxyhemoglobin 0.6 (0.5-1.5) % POC ABG HHb (Measured) 2.4 (0.0-5.0) % ABG Methemoglobin 0.6 (0.0-3.0) % Naif Test Na ABG Potassium (3.6-5.2) mmol/L A-a O2 Difference 266.0 mm/Hg Respiratory Index 2.1 Hgb O2 Saturation 96.4 (95.0-98.0) % Sodium (132-148) mmol/l Chloride (98-107) mmol/L Glucose (75-110) mg/dl Lactate (0.7-2.1) mmol/L Vent Mode Prvc Mechanical Rate 18 FiO2 60.0 % Tidal Volume 500 PEEP 5 Potassium (3.6-5.2) mmol/L Carbon Dioxide (22-30) mmol/L Anion Gap (10-20) BUN (9-20) mg/dL Creatinine (0.8-1.5) mg/dL Est GFR ( Amer) Est GFR (Non-Af Amer) POC Glucose (mg/dL) 107 71 (65-110) mg/dL Random Glucose (75-110) mg/dL Calcium (8.6-10.4) mg/dl Phosphorus (2.5-4.5) mg/dL Magnesium (1.6-2.3) mg/dL Total Bilirubin (0.2-1.3) mg/dL AST (17-59) U/L ALT (21-72) U/L Alkaline Phosphatase (38-126) U/L Troponin I (0.00-0.120) ng/mL Total Protein (6.3-8.3) g/dL Albumin (3.5-5.0) g/dL Globulin (2.2-3.9) gm/dL Albumin/Globulin Ratio (1.0-2.1) Procalcitonin (0.19-0.49) NG/ML Arterial Blood Potassium (3.6-5.2) mmol/L 12/22/18 12/22/18 12/22/18 Range/Units 17:00 17:00 17:00 WBC 14.9 H D (4.8-10.8) K/uL RBC 3.56 L (4.40-5.90) Mil/uL Hgb 9.5 L (12.0-18.0) g/dL Hct 30.7 L (35.0-51.0) % MCV 86.1 (80.0-94.0) fL MCH 26.8 L (27.0-31.0) pg MCHC 31.1 L (33.0-37.0) g/dL RDW 19.6 H (11.5-14.5) % Plt Count 294 (130-400) K/uL MPV 7.0 L (7.2-11.7) fL Neut % (Auto) 92.1 H (50.0-75.0) % Lymph % (Auto) 3.5 L (20.0-40.0) % [place] % (Auto) 4.1 (0.0-10.0) % Eos % (Auto) 0.0 (0.0-4.0) % Baso % (Auto) 0.3 (0.0-2.0) % Neut # (Auto) 13.8 H (1.8-7.0) K/uL Lymph # (Auto) 0.5 L (1.0-4.3) K/uL [place] # (Auto) 0.6 (0.0-0.8) K/uL Eos # (Auto) 0.0 (0.0-0.7) K/uL Baso # (Auto) 0.0 (0.0-0.2) K/uL Neutrophils % (Manual) 88 H (50-75) % Band Neutrophils % 9 H (0-2) % Lymphocytes % (Manual) 2 L (20-40) % Reactive Lymphs % (0-0) % Monocytes % (Manual) 1 (0-10) % Platelet Estimate Normal (NORMAL) Hypochromasia (manual) Slight Poikilocytosis (manual Slight Anisocytosis (manual) Slight Target Cells Ovalocytes Michael Cells Puncture Site pCO2 (35-45) mm/Hg pO2 (80-100) mm/Hg HCO3 (21-28) mmol/L ABG pH (7.35-7.45) ABG Total CO2 (22-28) mmol/L ABG O2 Saturation (95-98) % ABG Base Excess (-2.0-3.0) mmol/L ABG Hemoglobin (11.7-17.4) g/dL ABG Carboxyhemoglobin (0.5-1.5) % POC ABG HHb (Measured) (0.0-5.0) % ABG Methemoglobin (0.0-3.0) % Naif Test ABG Potassium (3.6-5.2) mmol/L A-a O2 Difference mm/Hg Respiratory Index Hgb O2 Saturation (95.0-98.0) % Sodium 139 (132-148) mmol/l Chloride 101 (98-107) mmol/L Glucose (75-110) mg/dl Lactate (0.7-2.1) mmol/L Vent Mode Mechanical Rate FiO2 % Tidal Volume PEEP Potassium 3.0 L (3.6-5.2) mmol/L Carbon Dioxide 29 (22-30) mmol/L Anion Gap 12 (10-20) BUN 23 H (9-20) mg/dL Creatinine 1.2 (0.8-1.5) mg/dL Est GFR ( Amer) > 60 Est GFR (Non-Af Amer) 58 POC Glucose (mg/dL) (65-110) mg/dL Random Glucose 83 (75-110) mg/dL Calcium 8.5 L (8.6-10.4) mg/dl Phosphorus (2.5-4.5) mg/dL Magnesium (1.6-2.3) mg/dL Total Bilirubin 0.7 (0.2-1.3) mg/dL AST 80 H D (17-59) U/L ALT 26 (21-72) U/L Alkaline Phosphatase 109 (38-126) U/L Troponin I 0.1100 (0.00-0.120) ng/mL Total Protein 6.2 L (6.3-8.3) g/dL Albumin 2.9 L (3.5-5.0) g/dL Globulin 3.3 (2.2-3.9) gm/dL Albumin/Globulin Ratio 0.9 L (1.0-2.1) Procalcitonin 3.55 H (0.19-0.49) NG/ML Arterial Blood Potassium (3.6-5.2) mmol/L 12/22/18 Range/Units 17:00 WBC (4.8-10.8) K/uL RBC (4.40-5.90) Mil/uL Hgb (12.0-18.0) g/dL Hct (35.0-51.0) % MCV (80.0-94.0) fL MCH (27.0-31.0) pg MCHC (33.0-37.0) g/dL RDW (11.5-14.5) % Plt Count (130-400) K/uL MPV (7.2-11.7) fL Neut % (Auto) (50.0-75.0) % Lymph % (Auto) (20.0-40.0) % [place] % (Auto) (0.0-10.0) % Eos % (Auto) (0.0-4.0) % Baso % (Auto) (0.0-2.0) % Neut # (Auto) (1.8-7.0) K/uL Lymph # (Auto) (1.0-4.3) K/uL [place] # (Auto) (0.0-0.8) K/uL Eos # (Auto) (0.0-0.7) K/uL Baso # (Auto) (0.0-0.2) K/uL Neutrophils % (Manual) (50-75) % Band Neutrophils % (0-2) % Lymphocytes % (Manual) (20-40) % Reactive Lymphs % (0-0) % Monocytes % (Manual) (0-10) % Platelet Estimate (NORMAL) Hypochromasia (manual) Poikilocytosis (manual Anisocytosis (manual) Target Cells Ovalocytes [place] Cells Puncture Site Lba pCO2 40 (35-45) mm/Hg pO2 182 H (80-100) mm/Hg HCO3 27.2 (21-28) mmol/L ABG pH 7.44 (7.35-7.45) ABG Total CO2 28.4 H (22-28) mmol/L ABG O2 Saturation 98.0 (95-98) % ABG Base Excess 2.8 (-2.0-3.0) mmol/L ABG Hemoglobin (11.7-17.4) g/dL ABG Carboxyhemoglobin (0.5-1.5) % POC ABG HHb (Measured) (0.0-5.0) % ABG Methemoglobin (0.0-3.0) % Naif Test Pos ABG Potassium 2.8 L (3.6-5.2) mmol/L A-a O2 Difference 481.0 mm/Hg Respiratory Index 2.6 Hgb O2 Saturation (95.0-98.0) % Sodium 139.0 (132-148) mmol/l Chloride 107.0 (98-107) mmol/L Glucose 77 (75-110) mg/dl Lactate 1.0 (0.7-2.1) mmol/L Vent Mode Prvc Mechanical Rate 18 FiO2 100.0 % Tidal Volume 500 PEEP 5 Potassium (3.6-5.2) mmol/L Carbon Dioxide (22-30) mmol/L Anion Gap (10-20) BUN (9-20) mg/dL Creatinine (0.8-1.5) mg/dL Est GFR ( Amer) Est GFR (Non-Af Amer) POC Glucose (mg/dL) (65-110) mg/dL Random Glucose (75-110) mg/dL Calcium (8.6-10.4) mg/dl Phosphorus (2.5-4.5) mg/dL Magnesium (1.6-2.3) mg/dL Total Bilirubin (0.2-1.3) mg/dL AST (17-59) U/L ALT (21-72) U/L Alkaline Phosphatase (38-126) U/L Troponin I (0.00-0.120) ng/mL Total Protein (6.3-8.3) g/dL Albumin (3.5-5.0) g/dL Globulin (2.2-3.9) gm/dL Albumin/Globulin Ratio (1.0-2.1) Procalcitonin (0.19-0.49) NG/ML Arterial Blood Potassium 2.8 L (3.6-5.2) mmol/L Laboratory Results - last 24 hr 12/22/18 12/22/18 12/22/18 17:00 17:00 17:00 WBC 14.9 H D RBC 3.56 L Hgb 9.5 L Hct 30.7 L MCV 86.1 MCH 26.8 L MCHC 31.1 L RDW 19.6 H Plt Count 294 MPV 7.0 L Neut % (Auto) 92.1 H Lymph % (Auto) 3.5 L [place] % (Auto) 4.1 Eos % (Auto) 0.0 Baso % (Auto) 0.3 Neut # (Auto) 13.8 H Lymph # (Auto) 0.5 L [place] # (Auto) 0.6 Eos # (Auto) 0.0 Baso # (Auto) 0.0 Neutrophils % (Manual) 88 H Band Neutrophils % 9 H Lymphocytes % (Manual) 2 L Reactive Lymphs % Monocytes % (Manual) 1 Platelet Estimate Normal Hypochromasia (manual) Slight Poikilocytosis (manual Slight Anisocytosis (manual) Slight Target Cells Ovalocytes Michael Cells Puncture Site Lba pCO2 40 pO2 182 H HCO3 27.2 ABG pH 7.44 ABG Total CO2 28.4 H ABG O2 Saturation 98.0 ABG Base Excess 2.8 ABG Hemoglobin ABG Carboxyhemoglobin POC ABG HHb (Measured) ABG Methemoglobin Naif Test Pos ABG Potassium 2.8 L A-a O2 Difference 481.0 Respiratory Index 2.6 Hgb O2 Saturation Sodium 139.0 139 Chloride 107.0 101 Glucose 77 Lactate 1.0 Vent Mode Prvc Mechanical Rate 18 FiO2 100.0 Tidal Volume 500 PEEP 5 Potassium 3.0 L Carbon Dioxide 29 Anion Gap 12 BUN 23 H Creatinine 1.2 Est GFR ( Amer) > 60 Est GFR (Non-Af Amer) 58 POC Glucose (mg/dL) Random Glucose 83 Calcium 8.5 L Phosphorus Magnesium Total Bilirubin 0.7 AST 80 H D ALT 26 Alkaline Phosphatase 109 Troponin I 0.1100 Total Protein 6.2 L Albumin 2.9 L Globulin 3.3 Albumin/Globulin Ratio 0.9 L Procalcitonin Arterial Blood Potassium 2.8 L 12/22/18 12/22/18 12/23/18 17:00 23:31 05:09 WBC RBC Hgb Hct MCV MCH MCHC RDW Plt Count MPV Neut % (Auto) Lymph % (Auto) [place] % (Auto) Eos % (Auto) Baso % (Auto) Neut # (Auto) Lymph # (Auto) [place] # (Auto) Eos # (Auto) Baso # (Auto) Neutrophils % (Manual) Band Neutrophils % Lymphocytes % (Manual) Reactive Lymphs % Monocytes % (Manual) Platelet Estimate Hypochromasia (manual) Poikilocytosis (manual Anisocytosis (manual) Target Cells Ovalocytes [place] Cells Puncture Site pCO2 pO2 HCO3 ABG pH ABG Total CO2 ABG O2 Saturation ABG Base Excess ABG Hemoglobin ABG Carboxyhemoglobin POC ABG HHb (Measured) ABG Methemoglobin Naif Test ABG Potassium A-a O2 Difference Respiratory Index Hgb O2 Saturation Sodium Chloride Glucose Lactate Vent Mode Mechanical Rate FiO2 Tidal Volume PEEP Potassium Carbon Dioxide Anion Gap BUN Creatinine Est GFR ( Amer) Est GFR (Non-Af Amer) POC Glucose (mg/dL) 71 107 Random Glucose Calcium Phosphorus Magnesium Total Bilirubin AST ALT Alkaline Phosphatase Troponin I Total Protein Albumin Globulin Albumin/Globulin Ratio Procalcitonin 3.55 H Arterial Blood Potassium 12/23/18 12/23/18 12/23/18 05:19 05:37 05:37 WBC 13.2 H RBC 3.08 L Hgb 8.2 L Hct 26.7 L MCV 86.9 MCH 26.8 L MCHC 30.8 L RDW 19.7 H Plt Count 219 MPV 7.4 Neut % (Auto) 87.6 H Lymph % (Auto) 6.7 L [place] % (Auto) 5.5 Eos % (Auto) 0.0 Baso % (Auto) 0.2 Neut # (Auto) 11.6 H Lymph # (Auto) 0.9 L [place] # (Auto) 0.7 Eos # (Auto) 0.0 Baso # (Auto) 0.0 Neutrophils % (Manual) 62 Band Neutrophils % 25 H* Lymphocytes % (Manual) 10 L Reactive Lymphs % 2 H Monocytes % (Manual) 1 Platelet Estimate Normal Hypochromasia (manual) Moderate Poikilocytosis (manual Slight Anisocytosis (manual) Slight Target Cells Slight Ovalocytes Slight [place] Cells Slight Puncture Site Rb pCO2 28 L pO2 127 H HCO3 23.8 ABG pH 7.49 H ABG Total CO2 22.2 ABG O2 Saturation 97.6 ABG Base Excess -1.4 ABG Hemoglobin 9.3 L ABG Carboxyhemoglobin 0.6 POC ABG HHb (Measured) 2.4 ABG Methemoglobin 0.6 Naif Test Na ABG Potassium A-a O2 Difference 266.0 Respiratory Index 2.1 Hgb O2 Saturation 96.4 Sodium 136 Chloride 104 Glucose Lactate Vent Mode Prvc Mechanical Rate 18 FiO2 60.0 Tidal Volume 500 PEEP 5 Potassium 3.8 Carbon Dioxide 26 Anion Gap 10 BUN 30 H Creatinine 1.4 Est GFR ( Amer) 59 Est GFR (Non-Af Amer) 48 POC Glucose (mg/dL) Random Glucose 92 Calcium 8.0 L Phosphorus 4.0 Magnesium 1.9 Total Bilirubin 0.5 AST 94 H ALT 24 Alkaline Phosphatase 80 Troponin I Total Protein 5.1 L Albumin 2.2 L D Globulin 2.9 Albumin/Globulin Ratio 0.8 L Procalcitonin Arterial Blood Potassium 12/23/18 11:41 WBC RBC Hgb Hct MCV MCH MCHC RDW Plt Count MPV Neut % (Auto) Lymph % (Auto) [place] % (Auto) Eos % (Auto) Baso % (Auto) Neut # (Auto) Lymph # (Auto) [place] # (Auto) Eos # (Auto) Baso # (Auto) Neutrophils % (Manual) Band Neutrophils % Lymphocytes % (Manual) Reactive Lymphs % Monocytes % (Manual) Platelet Estimate Hypochromasia (manual) Poikilocytosis (manual Anisocytosis (manual) Target Cells Ovalocytes [place] Cells Puncture Site pCO2 pO2 HCO3 ABG pH ABG Total CO2 ABG O2 Saturation ABG Base Excess ABG Hemoglobin ABG Carboxyhemoglobin POC ABG HHb (Measured) ABG Methemoglobin Naif Test ABG Potassium A-a O2 Difference Respiratory Index Hgb O2 Saturation Sodium Chloride Glucose Lactate Vent Mode Mechanical Rate FiO2 Tidal Volume PEEP Potassium Carbon Dioxide Anion Gap BUN Creatinine Est GFR ( Amer) Est GFR (Non-Af Amer) POC Glucose (mg/dL) 135 H Random Glucose Calcium Phosphorus Magnesium Total Bilirubin AST ALT Alkaline Phosphatase Troponin I Total Protein Albumin Globulin Albumin/Globulin Ratio Procalcitonin Arterial Blood Potassium Radiology Impressions: Radiology Impressions Chest X-Ray 12/22/18 15:26 IMPRESSION: Endotracheal tube terminates approximately 4.8 cm above the nessa. Right IJ approach central venous catheter extends the SVC. Moderate right and small left pleural effusions and associated consolidations. Moderate interstitial prominence may reflect infection or edema. Chest X-Ray 12/23/18 07:00 IMPRESSION: Improving opacity at right base. Probable small bilateral pleural effusion. ET tube and right IJ central venous catheter are unchanged. Fingerstick Blood Sugar Results: 135 Review of Systems - Review of Systems Systems not reviewed;Unavailable: Intubated Assessment/Plan - Assessment and Plan (Free Text) Assessment: 83 y o male PMhx severe aortic stenosis (hx family refusing further w/u on prior admission as per chart review), paroxysmal A-fib, HTN, and dementia, admitted for sepsis 2/2 to HCAP. Reason for ICU consult was for hypoxia. [employer] was called on 12/22/17 on medical floor for hypoxia and O2 sat of 60% on NC. Pt was placed on non-rebreather and pulse ox was low 80s. Due to hx of severe (with no surgical intervention), pt was intubated by Anesthesia. Pt's son was called at that time to determine code status since pt is demented and at bedside is also demented, was instructed to come to hospital for further discussion. Further ROS was unobtainable at that time due to pt status of respiratory distress. Pt was transferred to ICU and had R internal jugular triple lumen catheter placed. Pt was also hypertensive with BP in ICU 159/101 and tachycardic into the 120s, vitals tachycardic and hypotensive today. Currently intubated. Acute respiratory failure likely 2/2 to aspiration PNA. Plan: Neuro: -Intubated -Hx dementia -C/w Aricept, Ativan prn for agitation -Hx CVA, c/w Crestor Cardio: -Tachycardic and hypertensive on initial ICU presentation; today tachycardia persistent and pt hypotensive -Hx aortic stenosis -Cardiology (Dr. Sanchez) consulted, recs appreciated -Hx A-fib -C/w Eliquis, Verapamil, Diltiazem -Central line placed for poor venous access on 12/22/18 Pulm: -Respiratory distress, intubated and sedated during [employer] -Hypoxic on initial ICU presentation; currently on ventilator, sedation d/c'd -Recent ABG 7.49/28/127/23.8 -Currently being treated for Sepsis 2/2 to HCAP -C/w Cefepime and Vanco -ID consulted (Dr. Pastrana), recs appreciated -C/w vent settings GI: -NPO -Will reattempt NG/OG tube placement today and if successful start tube feeds -Protonix ID: -Urine and blood cxs NGTD -Rapid flu neg -Cefepime/Vanco -ID on consult -Leukocytosis trending down, cont to trend Heme: -Normocytic anemia -Iron <10, TIBC 237, % sat 4.21, Folate >20, B12 526, Ferritin 55.8 -Postpone iron supplementation 2/2 iron promoting microbial growth during current infection -Stool Occult Blood negative -C/w Eliquis, Hgb 8.2/26.7 today Renal: -Hx BPH C/w Proscar -Trend I's/O's PPX: -Eliquis, SCD -Palliative care consulted, recs appreciated Pt seen, examined with, and plan discussed with Dr. Durham, attending physician. Huey Long DO PGY-1, [employer] Leader Pager #[phone] <Yovani Durham - Last Filed: 12/23/18 18:27> CCU Objective - Vital Signs / Intake & Output Vital Signs (Last 4 hours): Vital Signs Temp Pulse Resp BP Pulse Ox 12/23/18 17:21 116 H 25 H 101/67 100 12/23/18 16:22 123 H 24 106/80 100 12/23/18 16:00 97.4 F L 12/23/18 15:39 124 H 20 83/52 L 100 12/23/18 15:21 145 H 29 H 83/52 L 100 Intake and Output (Last 8hrs): Intake & Output 12/23/18 12/23/18 12/23/18 06:59 14:59 22:59 Intake Total 625 700 400 Output Total 300 300 Balance 325 700 100 Weight 92 lb Intake: Intake, IV Amount 625 700 400 Right IJ Proximal Port 50 100 rt. IJ TLC 625 650 300 Oral 0 Output: Urine 300 300 Urine, Voided 300 300 Other: # Voids Urine, Voided 3 # Bowel Movements 1 1 - Medications Active Medications: Active Medications Generic Name Dose Route Start Last Admin Trade Name Freq PRN Reason Stop Dose Admin Acetaminophen 650 mg 12/16/18 07:35 12/21/18 13:51 Tylenol 325mg Tab PO 650 mg Q6 PRN Administration Fever >100.4 F Albuterol/Ipratropium 3 ml 12/16/18 08:00 12/23/18 15:35 Duoneb 3 Mg/0.5 Mg (3 Ml) Ud INH 3 ml RQ4 VINCENT Administration Apixaban 2.5 mg 12/16/18 18:00 12/23/18 09:41 Eliquis PO Not Given BID VINCENT Diltiazem HCl 30 mg 12/21/18 14:45 12/23/18 15:37 Cardizem PO Not Given TID VINCENT Donepezil HCl 5 mg 12/16/18 22:00 12/22/18 22:39 Aricept PO Not Given HS VINCENT Finasteride 5 mg 12/16/18 12:00 12/23/18 09:41 Proscar PO Not Given DAILY VINCENT Guaifenesin 100 mg 12/23/18 18:00 Robitussin PO BID VINCENT Cefepime HCl 2 gm/ Sodium 100 mls @ 100 mls/hr 12/17/18 14:30 12/23/18 15:40 Chloride IVPB 100 mls/hr Q12H VINCENT Administration Protocol Vancomycin HCl 1,000 mg/ 250 mls @ 166.6 mls/hr 12/21/18 10:00 12/23/18 09:48 Sodium Chloride IVPB 166.6 mls/hr DAILY VINCENT Administration Protocol Acetaminophen 100 mls @ 400 mls/hr 12/22/18 23:24 12/22/18 23:49 Ofirmev IV 12/23/18 23:25 400 mls/hr Q6 PRN Administration for temp 101 and above Dextrose/Sodium Chloride 1,000 mls @ 75 mls/hr 12/23/18 01:00 12/23/18 15:51 Dextrose 5%/0.45% Ns 1000 Ml IV 75 mls/hr .[id number] VINCENT Administration Latanoprost 0.05 ml 12/16/18 22:00 12/22/18 22:41 Xalatan Opht OU 0.05 ml HS VINCENT Administration Lorazepam 1 mg 12/18/18 18:38 12/21/18 22:35 Ativan IVP 1 mg Q8H PRN Administration Agitation Pantoprazole Sodium 40 mg 12/23/18 12:45 12/23/18 13:03 Protonix Inj IVP 40 mg DAILY VINCENT Administration Rosuvastatin Calcium 10 mg 12/16/18 22:00 12/22/18 22:40 Crestor PO Not Given HS VINCENT Saccharomyces Boulardii 250 mg 12/16/18 12:00 12/23/18 09:41 Florastor PO Not Given BID VINCENT Verapamil HCl 120 mg 12/16/18 12:00 12/23/18 09:40 Calan Sr Tab PO Not Given DAILY VINCENT - Patient Studies Lab Studies: Microbiology Studies 12/22/18 13:56 Blood Culture - Preliminary Blood NO GROWTH AFTER 24 HOURS 12/22/18 13:56 Blood Culture - Preliminary Blood NO GROWTH AFTER 24 HOURS 12/22/18 17:00 MRSA Culture (Admit) - Final Naris MRSA NOT DETECTED Lab Studies 12/23/18 12/23/18 12/23/18 Range/Units 17:40 11:41 05:37 WBC (4.8-10.8) K/uL RBC (4.40-5.90) Mil/uL Hgb (12.0-18.0) g/dL Hct (35.0-51.0) % MCV (80.0-94.0) fL MCH (27.0-31.0) pg MCHC (33.0-37.0) g/dL RDW (11.5-14.5) % Plt Count (130-400) K/uL MPV (7.2-11.7) fL Neut % (Auto) (50.0-75.0) % Lymph % (Auto) (20.0-40.0) % [place] % (Auto) (0.0-10.0) % Eos % (Auto) (0.0-4.0) % Baso % (Auto) (0.0-2.0) % Neut # (Auto) (1.8-7.0) K/uL Lymph # (Auto) (1.0-4.3) K/uL [place] # (Auto) (0.0-0.8) K/uL Eos # (Auto) (0.0-0.7) K/uL Baso # (Auto) (0.0-0.2) K/uL Neutrophils % (Manual) (50-75) % Band Neutrophils % (0-2) % Lymphocytes % (Manual) (20-40) % Reactive Lymphs % (0-0) % Monocytes % (Manual) (0-10) % Platelet Estimate (NORMAL) Hypochromasia (manual) Poikilocytosis (manual Anisocytosis (manual) Target Cells Ovalocytes Michael Cells Puncture Site pCO2 (35-45) mm/Hg pO2 (80-100) mm/Hg HCO3 (21-28) mmol/L ABG pH (7.35-7.45) ABG Total CO2 (22-28) mmol/L ABG O2 Saturation (95-98) % ABG Base Excess (-2.0-3.0) mmol/L ABG Hemoglobin (11.7-17.4) g/dL ABG Carboxyhemoglobin (0.5-1.5) % POC ABG HHb (Measured) (0.0-5.0) % ABG Methemoglobin (0.0-3.0) % Naif Test A-a O2 Difference mm/Hg Respiratory Index Hgb O2 Saturation (95.0-98.0) % Vent Mode Mechanical Rate FiO2 % Tidal Volume PEEP Sodium 136 (132-148) mmol/L Potassium 3.8 (3.6-5.2) mmol/L Chloride 104 (98-107) mmol/L Carbon Dioxide 26 (22-30) mmol/L Anion Gap 10 (10-20) BUN 30 H (9-20) mg/dL Creatinine 1.4 (0.8-1.5) mg/dL Est GFR ( Amer) 59 Est GFR (Non-Af Amer) 48 POC Glucose (mg/dL) 129 H 135 H (65-110) mg/dL Random Glucose 92 (75-110) mg/dL Calcium 8.0 L (8.6-10.4) mg/dl Phosphorus 4.0 (2.5-4.5) mg/dL Magnesium 1.9 (1.6-2.3) mg/dL Total Bilirubin 0.5 (0.2-1.3) mg/dL AST 94 H (17-59) U/L ALT 24 (21-72) U/L Alkaline Phosphatase 80 (38-126) U/L Total Protein 5.1 L (6.3-8.3) g/dL Albumin 2.2 L D (3.5-5.0) g/dL Globulin 2.9 (2.2-3.9) gm/dL Albumin/Globulin Ratio 0.8 L (1.0-2.1) Procalcitonin (0.19-0.49) NG/ML 12/23/18 12/23/18 12/23/18 Range/Units 05:37 05:19 05:09 WBC 13.2 H (4.8-10.8) K/uL RBC 3.08 L (4.40-5.90) Mil/uL Hgb 8.2 L (12.0-18.0) g/dL Hct 26.7 L (35.0-51.0) % MCV 86.9 (80.0-94.0) fL MCH 26.8 L (27.0-31.0) pg MCHC 30.8 L (33.0-37.0) g/dL RDW 19.7 H (11.5-14.5) % Plt Count 219 (130-400) K/uL MPV 7.4 (7.2-11.7) fL Neut % (Auto) 87.6 H (50.0-75.0) % Lymph % (Auto) 6.7 L (20.0-40.0) % [place] % (Auto) 5.5 (0.0-10.0) % Eos % (Auto) 0.0 (0.0-4.0) % Baso % (Auto) 0.2 (0.0-2.0) % Neut # (Auto) 11.6 H (1.8-7.0) K/uL Lymph # (Auto) 0.9 L (1.0-4.3) K/uL [place] # (Auto) 0.7 (0.0-0.8) K/uL Eos # (Auto) 0.0 (0.0-0.7) K/uL Baso # (Auto) 0.0 (0.0-0.2) K/uL Neutrophils % (Manual) 62 (50-75) % Band Neutrophils % 25 H* (0-2) % Lymphocytes % (Manual) 10 L (20-40) % Reactive Lymphs % 2 H (0-0) % Monocytes % (Manual) 1 (0-10) % Platelet Estimate Normal (NORMAL) Hypochromasia (manual) Moderate Poikilocytosis (manual Slight Anisocytosis (manual) Slight Target Cells Slight Ovalocytes Slight [place] Cells Slight Puncture Site Rb pCO2 28 L (35-45) mm/Hg pO2 127 H (80-100) mm/Hg HCO3 23.8 (21-28) mmol/L ABG pH 7.49 H (7.35-7.45) ABG Total CO2 22.2 (22-28) mmol/L ABG O2 Saturation 97.6 (95-98) % ABG Base Excess -1.4 (-2.0-3.0) mmol/L ABG Hemoglobin 9.3 L (11.7-17.4) g/dL ABG Carboxyhemoglobin 0.6 (0.5-1.5) % POC ABG HHb (Measured) 2.4 (0.0-5.0) % ABG Methemoglobin 0.6 (0.0-3.0) % Naif Test Na A-a O2 Difference 266.0 mm/Hg Respiratory Index 2.1 Hgb O2 Saturation 96.4 (95.0-98.0) % Vent Mode Prvc Mechanical Rate 18 FiO2 60.0 % Tidal Volume 500 PEEP 5 Sodium (132-148) mmol/L Potassium (3.6-5.2) mmol/L Chloride (98-107) mmol/L Carbon Dioxide (22-30) mmol/L Anion Gap (10-20) BUN (9-20) mg/dL Creatinine (0.8-1.5) mg/dL Est GFR ( Amer) Est GFR (Non-Af Amer) POC Glucose (mg/dL) 107 (65-110) mg/dL Random Glucose (75-110) mg/dL Calcium (8.6-10.4) mg/dl Phosphorus (2.5-4.5) mg/dL Magnesium (1.6-2.3) mg/dL Total Bilirubin (0.2-1.3) mg/dL AST (17-59) U/L ALT (21-72) U/L Alkaline Phosphatase (38-126) U/L Total Protein (6.3-8.3) g/dL Albumin (3.5-5.0) g/dL Globulin (2.2-3.9) gm/dL Albumin/Globulin Ratio (1.0-2.1) Procalcitonin (0.19-0.49) NG/ML 12/22/18 12/22/18 Range/Units 23:31 17:00 WBC (4.8-10.8) K/uL RBC (4.40-5.90) Mil/uL Hgb (12.0-18.0) g/dL Hct (35.0-51.0) % MCV (80.0-94.0) fL MCH (27.0-31.0) pg MCHC (33.0-37.0) g/dL RDW (11.5-14.5) % Plt Count (130-400) K/uL MPV (7.2-11.7) fL Neut % (Auto) (50.0-75.0) % Lymph % (Auto) (20.0-40.0) % [place] % (Auto) (0.0-10.0) % Eos % (Auto) (0.0-4.0) % Baso % (Auto) (0.0-2.0) % Neut # (Auto) (1.8-7.0) K/uL Lymph # (Auto) (1.0-4.3) K/uL [place] # (Auto) (0.0-0.8) K/uL Eos # (Auto) (0.0-0.7) K/uL Baso # (Auto) (0.0-0.2) K/uL Neutrophils % (Manual) (50-75) % Band Neutrophils % (0-2) % Lymphocytes % (Manual) (20-40) % Reactive Lymphs % (0-0) % Monocytes % (Manual) (0-10) % Platelet Estimate (NORMAL) Hypochromasia (manual) Poikilocytosis (manual Anisocytosis (manual) Target Cells Ovalocytes Michael Cells Puncture Site pCO2 (35-45) mm/Hg pO2 (80-100) mm/Hg HCO3 (21-28) mmol/L ABG pH (7.35-7.45) ABG Total CO2 (22-28) mmol/L ABG O2 Saturation (95-98) % ABG Base Excess (-2.0-3.0) mmol/L ABG Hemoglobin (11.7-17.4) g/dL ABG Carboxyhemoglobin (0.5-1.5) % POC ABG HHb (Measured) (0.0-5.0) % ABG Methemoglobin (0.0-3.0) % Naif Test A-a O2 Difference mm/Hg Respiratory Index Hgb O2 Saturation (95.0-98.0) % Vent Mode Mechanical Rate FiO2 % Tidal Volume PEEP Sodium (132-148) mmol/L Potassium (3.6-5.2) mmol/L Chloride (98-107) mmol/L Carbon Dioxide (22-30) mmol/L Anion Gap (10-20) BUN (9-20) mg/dL Creatinine (0.8-1.5) mg/dL Est GFR ( Amer) Est GFR (Non-Af Amer) POC Glucose (mg/dL) 71 (65-110) mg/dL Random Glucose (75-110) mg/dL Calcium (8.6-10.4) mg/dl Phosphorus (2.5-4.5) mg/dL Magnesium (1.6-2.3) mg/dL Total Bilirubin (0.2-1.3) mg/dL AST (17-59) U/L ALT (21-72) U/L Alkaline Phosphatase (38-126) U/L Total Protein (6.3-8.3) g/dL Albumin (3.5-5.0) g/dL Globulin (2.2-3.9) gm/dL Albumin/Globulin Ratio (1.0-2.1) Procalcitonin 3.55 H (0.19-0.49) NG/ML Laboratory Results - last 24 hr 12/22/18 12/22/18 12/23/18 17:00 23:31 05:09 WBC RBC Hgb Hct MCV MCH MCHC RDW Plt Count MPV Neut % (Auto) Lymph % (Auto) [place] % (Auto) Eos % (Auto) Baso % (Auto) Neut # (Auto) Lymph # (Auto) [place] # (Auto) Eos # (Auto) Baso # (Auto) Neutrophils % (Manual) Band Neutrophils % Lymphocytes % (Manual) Reactive Lymphs % Monocytes % (Manual) Platelet Estimate Hypochromasia (manual) Poikilocytosis (manual Anisocytosis (manual) Target Cells Ovalocytes Michael Cells Puncture Site pCO2 pO2 HCO3 ABG pH ABG Total CO2 ABG O2 Saturation ABG Base Excess ABG Hemoglobin ABG Carboxyhemoglobin POC ABG HHb (Measured) ABG Methemoglobin Naif Test A-a O2 Difference Respiratory Index Hgb O2 Saturation Vent Mode Mechanical Rate FiO2 Tidal Volume PEEP Sodium Potassium Chloride Carbon Dioxide Anion Gap BUN Creatinine Est GFR ( Amer) Est GFR (Non-Af Amer) POC Glucose (mg/dL) 71 107 Random Glucose Calcium Phosphorus Magnesium Total Bilirubin AST ALT Alkaline Phosphatase Total Protein Albumin Globulin Albumin/Globulin Ratio Procalcitonin 3.55 H 12/23/18 12/23/18 12/23/18 05:19 05:37 05:37 WBC 13.2 H RBC 3.08 L Hgb 8.2 L Hct 26.7 L MCV 86.9 MCH 26.8 L MCHC 30.8 L RDW 19.7 H Plt Count 219 MPV 7.4 Neut % (Auto) 87.6 H Lymph % (Auto) 6.7 L [place] % (Auto) 5.5 Eos % (Auto) 0.0 Baso % (Auto) 0.2 Neut # (Auto) 11.6 H Lymph # (Auto) 0.9 L [place] # (Auto) 0.7 Eos # (Auto) 0.0 Baso # (Auto) 0.0 Neutrophils % (Manual) 62 Band Neutrophils % 25 H* Lymphocytes % (Manual) 10 L Reactive Lymphs % 2 H Monocytes % (Manual) 1 Platelet Estimate Normal Hypochromasia (manual) Moderate Poikilocytosis (manual Slight Anisocytosis (manual) Slight Target Cells Slight Ovalocytes Slight [place] Cells Slight Puncture Site Rb pCO2 28 L pO2 127 H HCO3 23.8 ABG pH 7.49 H ABG Total CO2 22.2 ABG O2 Saturation 97.6 ABG Base Excess -1.4 ABG Hemoglobin 9.3 L ABG Carboxyhemoglobin 0.6 POC ABG HHb (Measured) 2.4 ABG Methemoglobin 0.6 Naif Test Na A-a O2 Difference 266.0 Respiratory Index 2.1 Hgb O2 Saturation 96.4 Vent Mode Prvc Mechanical Rate 18 FiO2 60.0 Tidal Volume 500 PEEP 5 Sodium 136 Potassium 3.8 Chloride 104 Carbon Dioxide 26 Anion Gap 10 BUN 30 H Creatinine 1.4 Est GFR ( Amer) 59 Est GFR (Non-Af Amer) 48 POC Glucose (mg/dL) Random Glucose 92 Calcium 8.0 L Phosphorus 4.0 Magnesium 1.9 Total Bilirubin 0.5 AST 94 H ALT 24 Alkaline Phosphatase 80 Total Protein 5.1 L Albumin 2.2 L D Globulin 2.9 Albumin/Globulin Ratio 0.8 L Procalcitonin 12/23/18 12/23/18 11:41 17:40 WBC RBC Hgb Hct MCV MCH MCHC RDW Plt Count MPV Neut % (Auto) Lymph % (Auto) [place] % (Auto) Eos % (Auto) Baso % (Auto) Neut # (Auto) Lymph # (Auto) [place] # (Auto) Eos # (Auto) Baso # (Auto) Neutrophils % (Manual) Band Neutrophils % Lymphocytes % (Manual) Reactive Lymphs % Monocytes % (Manual) Platelet Estimate Hypochromasia (manual) Poikilocytosis (manual Anisocytosis (manual) Target Cells Ovalocytes [place] Cells Puncture Site pCO2 pO2 HCO3 ABG pH ABG Total CO2 ABG O2 Saturation ABG Base Excess ABG Hemoglobin ABG Carboxyhemoglobin POC ABG HHb (Measured) ABG Methemoglobin Naif Test A-a O2 Difference Respiratory Index Hgb O2 Saturation Vent Mode Mechanical Rate FiO2 Tidal Volume PEEP Sodium Potassium Chloride Carbon Dioxide Anion Gap BUN Creatinine Est GFR ( Amer) Est GFR (Non-Af Amer) POC Glucose (mg/dL) 135 H 129 H Random Glucose Calcium Phosphorus Magnesium Total Bilirubin AST ALT Alkaline Phosphatase Total Protein Albumin Globulin Albumin/Globulin Ratio Procalcitonin Radiology Impressions: Radiology Impressions Chest X-Ray 12/23/18 07:00 IMPRESSION: Improving opacity at right base. Probable small bilateral pleural effusion. ET tube and right IJ central venous catheter are unchanged. Attending/Attestation - Attestation I have personally seen and examined this patient.: Yes I have fully participated in the care of the patient.: Yes I have reviewed all pertinent clinical information: Yes Notes (Text): 12/23/18 18:24 I have seen and examined the patient. Medical records, lab studies, and imaging were reviewed by me and a management plan was formulated on multidisciplinary rounds with resident Dr. Long. I agree with their documented assessment and plan. Start PS trials. Patient is having episodes of hypotension. Patient has sepsis from pneumonia, which is improving, but his risk of decompensation and mortality is high risk. Discussed with son, who still wants full code. Critical Care Time 35 minutes. Multi-disciplinary rounds were performed with house staff, nursing, speech therapy, respiratory therapy, pharmacy and nutrition with integrated input from the primary team/attending and other consulting services. The documented time is cumulative and includes review of patient data/exams/labs/chart review and examination of the patient on rounds and throughout the day; time is exclusive of any procedures or teaching time.
--- NOTE | 2018-12-23 18:01 | CP.PCM.PN ---
Subjective - Date & Time of Evaluation Date of Evaluation: 12/23/18 Time of Evaluation: 17:45 - Subjective Subjective: patient remains intubated. awake. Objective - Vital Signs/Intake and Output Vital Signs (last 24 hours): Temp Pulse Resp BP Pulse Ox 97.4 F L 123 H 24 106/80 100 12/23/18 16:00 12/23/18 16:22 12/23/18 16:22 12/23/18 16:22 12/23/18 16:22 Intake and Output: 12/23/18 12/23/18 06:59 18:59 Intake Total 825 950 Output Total 300 Balance 525 950 - Medications Medications: Current Medications Acetaminophen (Tylenol 325mg Tab) 650 mg PO Q6 PRN PRN Reason: Fever >100.4 F Last Admin: 12/21/18 13:51 Dose: 650 mg Albuterol/Ipratropium (Duoneb 3 Mg/0.5 Mg (3 Ml) Ud) 3 ml INH RQ4 [facility] Last Admin: 12/23/18 15:35 Dose: 3 ml Apixaban (Eliquis) 2.5 mg PO BID [facility] Last Admin: 12/23/18 09:41 Dose: Not Given Diltiazem HCl (Cardizem) 30 mg PO TID [facility] Last Admin: 12/23/18 15:37 Dose: Not Given Donepezil HCl (Aricept) 5 mg PO HS [facility] Last Admin: 12/22/18 22:39 Dose: Not Given Finasteride (Proscar) 5 mg PO DAILY [facility] Last Admin: 12/23/18 09:41 Dose: Not Given Guaifenesin (Robitussin) 100 mg PO BID [facility] Cefepime HCl 2 gm/ Sodium (Chloride) 100 mls @ 100 mls/hr IVPB Q12H [facility]; Protocol Last Admin: 12/23/18 15:40 Dose: 100 mls/hr Vancomycin HCl 1,000 mg/ (Sodium Chloride) 250 mls @ 166.6 mls/hr IVPB DAILY [facility]; Protocol Last Admin: 12/23/18 09:48 Dose: 166.6 mls/hr Acetaminophen (Ofirmev) 100 mls @ 400 mls/hr IV Q6 PRN PRN Reason: for temp 101 and above Stop: 12/23/18 23:25 Last Admin: 12/22/18 23:49 Dose: 400 mls/hr Dextrose/Sodium Chloride (Dextrose 5%/0.45% Ns 1000 Ml) 1,000 mls @ 75 mls/hr IV .[id number] [facility] Last Admin: 12/23/18 15:51 Dose: 75 mls/hr Latanoprost (Xalatan Opht) 0.05 ml OU HS [facility] Last Admin: 12/22/18 22:41 Dose: 0.05 ml Lorazepam (Ativan) 1 mg IVP Q8H PRN PRN Reason: Agitation Last Admin: 12/21/18 22:35 Dose: 1 mg Pantoprazole Sodium (Protonix Inj) 40 mg IVP DAILY [facility] Last Admin: 12/23/18 13:03 Dose: 40 mg Rosuvastatin Calcium (Crestor) 10 mg PO HS [facility] Last Admin: 12/22/18 22:40 Dose: Not Given Saccharomyces Boulardii (Florastor) 250 mg PO BID [facility] Last Admin: 12/23/18 09:41 Dose: Not Given Verapamil HCl (Calan Sr Tab) 120 mg PO DAILY [facility] Last Admin: 12/23/18 09:40 Dose: Not Given - Labs Labs: 12/23/18 05:37 12/23/18 05:37 PT 12.3 SECONDS (9.7-12.2) H 12/16/18 04:22 INR 1.1 12/16/18 04:22 APTT 29 SECONDS (21-34) 12/16/18 04:22 - Constitutional Appears: Chronically Ill - Eye Exam Eye Exam: Normal appearance - Neck Exam Neck Exam: absent: Lymphadenopathy, Meningismus, Thyromegaly - Respiratory Exam Respiratory Exam: Decreased Breath Sounds - Cardiovascular Exam Cardiovascular Exam: Tachycardia, Irregular Rhythm Additional comments: crescendo 3/6 systolic murmur - GI/Abdominal Exam GI & Abdominal Exam: Normal Bowel Sounds - Rectal Exam Rectal Exam: Deferred - Extremities Exam Extremities Exam: absent: Pedal Edema - Back Exam Back Exam: NORMAL INSPECTION - Skin Skin Exam: Normal Color Assessment and Plan (1) Aortic stenosis Assessment & Plan: severe. patient and family have refused further evaluation. unclear extent of CAD. Status: Acute (2) Paroxysmal atrial fibrillation Assessment & Plan: on amiodarone. continue anticoagulation. Status: Acute
[2018-12-23] MEDS: guaiFENesin 100 mg/5 ml Syrup UD PO SCH (18:30)
[2018-12-23] MEDS ORDERED: Dexmedetomidine Hydrochloride 200 MCG in Sodium Chloride 0.9% 48 ML IV PRN (21:00)
[2018-12-23] MEDS: Latanoprost 2.5 ml Opht Soln OU SCH (21:13)
[2018-12-23] MEDS ORDERED: Digoxin 500 mcg/2ml (0.5 mg/2ml) Inj IVP ONE (21:38)
[2018-12-23 22:05] VITALS: PULSE 146
[2018-12-24] MEDS: Albuterol-Ipratrop 3 mg / 0.5 (3 ml) UD INH SCH ×6 (00:44→19:58)
[2018-12-24] MEDS: Cefepime 2 GM in Sodium Chloride 0.9% 100 ML IVPB SCH ×2 (02:31→14:45)
[2018-12-24 05:41] LABS: ARTERIAL BLOOD GAS HCO3 23.8 mmol/L (21-28); ARTERIAL BLOOD GAS HEMOGLOBIN 8.9 g/dL (11.7-17.4); ARTERIAL BLOOD GAS O2 SAT 96.9 % (95-98); ARTERIAL BLOOD GAS PCO2 29 mm/Hg (35-45); ARTERIAL BLOOD GAS PH 7.48 (7.35-7.45); ARTERIAL BLOOD GAS PO2 80 mm/Hg (80-100); ARTERIAL BLOOD GAS TCO2 22.5 mmol/L (22-28)
[2018-12-24 06:38] LABS: BASO % 0.1 % (0.0-2.0); HEMOGLOBIN 8.8 g/dL (12.0-18.0); LYMPH # 0.5 K/uL (1.0-4.3); LYMPH % 4.2 % (20.0-40.0); MEAN CELL VOLUME 86.1 fL (80.0-94.0); MEAN CORPUSCULAR HEMOGLOBIN 27.3 pg (27.0-31.0); MEAN CORPUSCULAR HGB CONC 31.7 g/dL (33.0-37.0); MEAN PLATELET VOLUME 7.6 fL (7.2-11.7); MONO # 0.4 K/uL (0.0-0.8); MONO % 3.2 % (0.0-10.0); NEUT # 11.1 K/uL (1.8-7.0); NEUT % 92.5 % (50.0-75.0); PLATELET COUNT 248 K/uL (130-400); RBC 3.22 Mil/uL (4.40-5.90); RED CELL DISTRIBUTION WIDTH 19.6 % (11.5-14.5)
[2018-12-24 06:59] LABS: ALB/GLOB RATIO 0.7 (1.0-2.1); ALBUMIN 2.1 g/dL (3.5-5.0); CALCIUM 7.9 mg/dl (8.6-10.4)
[2018-12-24] MEDS ORDERED: Sodium Chloride 0.9% 500 ML IV ONE (07:25)
[2018-12-24 08:37] LABS: ANISOCYTOSIS SLIGHT; BANDS 6 % (0-2); HYPOCHROMIC SLIGHT; LYMPHOCYTE 3 % (20-40); MONOCYTE 2 % (0-10); NEUTROPHIL 89 % (50-75); PLATELET ESTIMATE NORMAL (NORMAL); POIKILOCYTOSIS SLIGHT; TOTAL CELLS COUNTED 100
--- NOTE | 2018-12-24 09:45 | RAD ---
Date of service: 12/24/2018 HISTORY: eval interval change COMPARISON: 12/23/2018 FINDINGS: Endotracheal tube terminates 3.8 cm proximal to the nessa. The right IJV line terminates in the distal SVC. LUNGS: There is pulmonary hyperinflation and peribronchial thickening with chronic changes in both lungs. There is a persistent left retrocardiac opacity. PLEURA: No pleural effusions or pneumothorax. CARDIOVASCULAR: Persistent mild cardiomegaly. There are aortic atherosclerotic calcifications present. OSSEOUS STRUCTURES: Within normal limits for the patient's age. VISUALIZED UPPER ABDOMEN: Normal. OTHER FINDINGS: There is chronic elevation of the right hemidiaphragm. IMPRESSION: Persistent left lower lobe pneumonia. Stable position of support line and tubes. Background of COPD.
[2018-12-24] MEDS: Dextrose 5%/0.45% NS 1,000 ML IV SCH ×2 (10:01→18:59)
[2018-12-24] MEDS: Verapamil 120 mg ER Tab PO SCH (10:01)
[2018-12-24] MEDS: Saccharomyces Boulardi 250 mg Cap PO SCH ×2 (10:02→18:58)
[2018-12-24] MEDS: guaiFENesin 100 mg/5 ml Syrup UD PO SCH ×2 (10:02→18:58)
--- NOTE | 2018-12-24 11:41 | CP.PCM.CON ---
History of Present Illness - History of Present Illness History of Present Illness: Palliative consult requested by Doctor Chrystal Ortiz for goals of care discussion. Patient is a 83 yo male admitted from home with loose, diarrhea like looking stools X 3 days. Patient could not tolrate PO fluid intake and was shaking uncontrollably. Patient's son made him come to ED. Patient was treated at this hospital in 09/2018 for CVA and pneumonia and discharged to [facility]. From [facility] patient was discharged home when he got sick and came back to the hospital. CXR was consistent with Pneuminia. Maxipime and Vanco IV on board. Patient diagnose with Sepsis and Dehydration. IVF on for hydration. During this hospital stay patient's condition worsened, and was intubated due to severe respiratory distress. Patient's son requested Full Code with all agressive interventions as needed. I spoke to son Kevin [phone] this morning and invited him to a family meeting for goals of care discussion. he agreed for meeting at 12: 15 pm today. PMH: CVA, pneumonia, A Fib, dementia, PPM Soc. Hx: lives at home, , with dementia, son main critical care paramedic. Fam. Hx; Unobtainable from patient Review of Systems - Review of Systems Systems not reviewed;Unavailable: Acuity of Condition, Intubated All systems: reviewed and no additional remarkable complaints except Review of Systems: ROS uobtainable from patient due to intubation. per nursing no acute overnight events. Past Patient History - Past Medical History & Family History Past Medical History?: No - Past Social History Smoking Status: Unknown If Ever Smoked - CARDIAC Hx Atrial Fibrillation: Yes Hx Hypertension: No Hx Pacemaker: No - PULMONARY Hx Respiratory Disorders: No Hx Tuberculosis: No - NEUROLOGICAL Hx Dementia: Yes Hx Seizures: No - HEENT Hx HEENT Problems: Yes Hx Glaucoma: Yes - RENAL Hx Chronic Kidney Disease: No - ENDOCRINE/METABOLIC Hx Endocrine Disorders: No - HEMATOLOGICAL/ONCOLOGICAL Hx Human Immunodeficiency Virus (HIV): No - INTEGUMENTARY Hx Dermatological Problems: No - MUSCULOSKELETAL/RHEUMATOLOGICAL Hx Falls: Yes - GASTROINTESTINAL Hx Gastrointestinal Disorders: Yes Other/Comment: liver abscess - GENITOURINARY/GYNECOLOGICAL Hx Sexually Transmitted Disorders: No - PSYCHIATRIC Hx Substance Use: No - SURGICAL HISTORY Hx Cholecystectomy: Yes - ANESTHESIA Hx Anesthesia: Yes Hx Anesthesia Reactions: No Hx Malignant Hyperthermia: No Has any member of the family had a problem w/ anesthesia?: No Meds Allergies/Adverse Reactions: Allergies Allergy/AdvReac Type Severity Reaction Status Date / Time No Known Allergies Allergy Verified 12/16/18 03:29 - Medications Medications: Current Medications Acetaminophen (Tylenol 325mg Tab) 650 mg PO Q6 PRN PRN Reason: Fever >100.4 F Last Admin: 12/21/18 13:51 Dose: 650 mg Albuterol/Ipratropium (Duoneb 3 Mg/0.5 Mg (3 Ml) Ud) 3 ml INH RQ4 [facility] Last Admin: 12/24/18 08:13 Dose: 3 ml Apixaban (Eliquis) 2.5 mg PO BID [facility] Last Admin: 12/24/18 10:01 Dose: Not Given Diltiazem HCl (Cardizem) 30 mg PO TID [facility] Last Admin: 12/24/18 10:01 Dose: Not Given Donepezil HCl (Aricept) 5 mg PO HS [facility] Last Admin: 12/23/18 21:14 Dose: Not Given Finasteride (Proscar) 5 mg PO DAILY [facility] Last Admin: 12/24/18 10:02 Dose: Not Given Guaifenesin (Robitussin) 100 mg PO BID [facility] Last Admin: 12/24/18 10:02 Dose: Not Given Cefepime HCl 2 gm/ Sodium (Chloride) 100 mls @ 100 mls/hr IVPB Q12H [facility]; Protocol Last Admin: 12/24/18 02:31 Dose: 100 mls/hr Vancomycin HCl 1,000 mg/ (Sodium Chloride) 250 mls @ 166.6 mls/hr IVPB DAILY [facility]; Protocol Last Admin: 12/23/18 09:48 Dose: 166.6 mls/hr Dextrose/Sodium Chloride (Dextrose 5%/0.45% Ns 1000 Ml) 1,000 mls @ 75 mls/hr IV .[id number] [facility] Last Admin: 12/24/18 10:01 Dose: Not Given Amiodarone HCl 900 mg/ (Dextrose) 500 mls @ 17 mls/hr IV Q24H [facility] Stop: 12/24/18 20:59 Last Admin: 12/24/18 02:27 Dose: 17 mls/hr Dexmedetomidine HCl 200 mcg/ (Sodium Chloride) 50 mls @ 2.09 mls/hr IV TITR PRN; Protocol PRN Reason: Agitation Last Titration: 12/24/18 06:39 Dose: 0.2 mcg/kg/hr, 2.1 mls/hr Latanoprost (Xalatan Opht) 0.05 ml OU HS [facility] Last Admin: 12/23/18 21:13 Dose: 0.05 ml Lorazepam (Ativan) 1 mg IVP Q8H PRN PRN Reason: Agitation Last Admin: 12/23/18 20:31 Dose: 1 mg Pantoprazole Sodium (Protonix Inj) 40 mg IVP DAILY [facility] Last Admin: 12/24/18 09:58 Dose: 40 mg Rosuvastatin Calcium (Crestor) 10 mg PO HS [facility] Last Admin: 12/23/18 21:14 Dose: Not Given Saccharomyces Boulardii (Florastor) 250 mg PO BID [facility] Last Admin: 12/24/18 10:02 Dose: Not Given Verapamil HCl (Calan Sr Tab) 120 mg PO DAILY [facility] Last Admin: 12/24/18 10:01 Dose: Not Given Physical Exam - Constitutional Appears: In Acute Distress, Chronically Ill - Head Exam Head Exam: ATRAUMATIC, NORMAL INSPECTION, NORMOCEPHALIC - Eye Exam Eye Exam: EOMI, Normal appearance, PERRL Pupil Exam: NORMAL ACCOMODATION, PERRL - ENT Exam ENT Exam: Mucous Membranes Dry Additional comments: ETT - Neck Exam Neck exam: Positive for: Normal Inspection - Respiratory Exam Additional comments: On MV - Cardiovascular Exam Cardiovascular Exam: Tachycardia, Irregular Rhythm - GI/Abdominal Exam GI & Abdominal Exam: Normal Bowel Sounds, Soft - Rectal Exam Rectal Exam: Deferred - Exam Exam: NORMAL INSPECTION - Extremities Exam Extremities exam: Positive for: normal capillary refill, normal inspection, pedal edema, pedal pulses present - Back Exam Back exam: NORMAL INSPECTION - Neurological Exam Neurological exam: Motor Sensory Deficit - Skin Skin Exam: Mottled, Pallor Results - Vital Signs Recent Vital Signs: Last Vital Signs Temp 98.2 F 12/24/18 04:00 Pulse 96 H 12/24/18 06:00 Resp 21 12/24/18 06:00 BP 90/60 L 12/24/18 05:20 Pulse Ox 98 12/24/18 06:00 - Labs Result Diagrams: 12/24/18 06:25 12/24/18 06:20 Labs: Laboratory Results - last 24 hr 12/23/18 12/23/18 12/23/18 11:41 17:40 23:20 WBC RBC Hgb Hct MCV MCH MCHC RDW Plt Count MPV Neut % (Auto) Lymph % (Auto) [place] % (Auto) Eos % (Auto) Baso % (Auto) Neut # (Auto) Lymph # (Auto) [place] # (Auto) Eos # (Auto) Baso # (Auto) Neutrophils % (Manual) Band Neutrophils % Lymphocytes % (Manual) Monocytes % (Manual) Platelet Estimate Hypochromasia (manual) Poikilocytosis (manual Anisocytosis (manual) Puncture Site pCO2 pO2 HCO3 ABG pH ABG Total CO2 ABG O2 Saturation ABG Base Excess ABG Hemoglobin ABG Carboxyhemoglobin POC ABG HHb (Measured) ABG Methemoglobin Naif Test A-a O2 Difference Respiratory Index Hgb O2 Saturation Vent Mode Mechanical Rate FiO2 Tidal Volume PEEP Sodium Potassium Chloride Carbon Dioxide Anion Gap BUN Creatinine Est GFR ( Amer) Est GFR (Non-Af Amer) POC Glucose (mg/dL) 135 H 129 H 154 H Random Glucose Calcium Phosphorus Magnesium Total Bilirubin AST ALT Alkaline Phosphatase Total Protein Albumin Globulin Albumin/Globulin Ratio Vancomycin Trough 12/24/18 12/24/18 12/24/18 05:25 05:46 06:20 WBC RBC Hgb Hct MCV MCH MCHC RDW Plt Count MPV Neut % (Auto) Lymph % (Auto) [place] % (Auto) Eos % (Auto) Baso % (Auto) Neut # (Auto) Lymph # (Auto) [place] # (Auto) Eos # (Auto) Baso # (Auto) Neutrophils % (Manual) Band Neutrophils % Lymphocytes % (Manual) Monocytes % (Manual) Platelet Estimate Hypochromasia (manual) Poikilocytosis (manual Anisocytosis (manual) Puncture Site Rb pCO2 29 L pO2 80 HCO3 23.8 ABG pH 7.48 H ABG Total CO2 22.5 ABG O2 Saturation 96.9 ABG Base Excess -1.4 ABG Hemoglobin 8.9 L ABG Carboxyhemoglobin 0.7 POC ABG HHb (Measured) 3.1 ABG Methemoglobin 0.4 Naif Test Na A-a O2 Difference 312.0 Respiratory Index 3.9 Hgb O2 Saturation 95.8 Vent Mode Prvc Mechanical Rate 18 FiO2 60.0 Tidal Volume 500 PEEP 5 Sodium 134 Potassium 3.3 L Chloride 105 Carbon Dioxide 25 Anion Gap 7 L BUN 32 H Creatinine 1.4 Est GFR ( Amer) 59 Est GFR (Non-Af Amer) 48 POC Glucose (mg/dL) 112 H Random Glucose 98 Calcium 7.9 L Phosphorus 3.0 Magnesium 1.9 Total Bilirubin 0.3 AST 94 H ALT 35 Alkaline Phosphatase 77 Total Protein 4.9 L Albumin 2.1 L Globulin 2.8 Albumin/Globulin Ratio 0.7 L Vancomycin Trough 12/24/18 12/24/18 06:25 09:51 WBC 12.0 H RBC 3.22 L Hgb 8.8 L Hct 27.7 L MCV 86.1 MCH 27.3 MCHC 31.7 L RDW 19.6 H Plt Count 248 MPV 7.6 Neut % (Auto) 92.5 H Lymph % (Auto) 4.2 L [place] % (Auto) 3.2 Eos % (Auto) 0.0 Baso % (Auto) 0.1 Neut # (Auto) 11.1 H Lymph # (Auto) 0.5 L [place] # (Auto) 0.4 Eos # (Auto) 0.0 Baso # (Auto) 0.0 Neutrophils % (Manual) 89 H Band Neutrophils % 6 H Lymphocytes % (Manual) 3 L Monocytes % (Manual) 2 Platelet Estimate Normal Hypochromasia (manual) Slight Poikilocytosis (manual Slight Anisocytosis (manual) Slight Puncture Site pCO2 pO2 HCO3 ABG pH ABG Total CO2 ABG O2 Saturation ABG Base Excess ABG Hemoglobin ABG Carboxyhemoglobin POC ABG HHb (Measured) ABG Methemoglobin Naif Test A-a O2 Difference Respiratory Index Hgb O2 Saturation Vent Mode Mechanical Rate FiO2 Tidal Volume PEEP Sodium Potassium Chloride Carbon Dioxide Anion Gap BUN Creatinine Est GFR ( Amer) Est GFR (Non-Af Amer) POC Glucose (mg/dL) Random Glucose Calcium Phosphorus Magnesium Total Bilirubin AST ALT Alkaline Phosphatase Total Protein Albumin Globulin Albumin/Globulin Ratio Vancomycin Trough 19.6 H Assessment & Plan - Assessment and Plan (Free Text) Assessment: Palliative consult Full Code, there is no Advance directive on chart, PPS 10% I reviewed all medical records, diagnostic studies, examined patient in the bed and discussed goals of care with his son. Patient examined in bed, alert, reactive to touch and makes eye contacts, very agitated. Patient has Ativan 1 mg Q 8 hr PRN. Son believes this causes low BP and is asking to DC Ativan.o Skin pale, Hb 8.8, poor skin turgor, no wounds. Breath sounds diminished, O2sat 100 %, FiO2 60%, thick secretion from ETT. Tachycardia, HR 96, irregular rhythm. SBP in 80'. per son, patient usually runs low BP. Abdomen flat, active bowel sounds, feed via NGT. Patient moves upper and lower extremities freely. Hb 8.8, K 3.3, WBC 12. Patient's son came in for 12 pm meeting. I elicited his understanding about his father's condition. he admitted talking to two doctors over the phone but asked me to review it all again with him. I reviewed patient's clinical presentation as combination of symptoms due to Pneumonia and reviewed current treatment. Further I discussed his father dehydration and sepsis diagnosis . The son stated that his father refuses to dring water or juice at home, but was a very good eater. We discussed the current Mv support. I elicited son's wishes regarding further care in case weaning was not an option. the son had difficult time processing this conversation as in his mind " his father was doing fine just until Thursday". I comforted him and reassured that we were providing all reasonable care and further interventions will depend on patient's response to care. I offered more info re trach and PEG as surgical residents came in to evaluate patient . Son was obviously unable to absorb all of these information and I made it easy for him asking for fallow up meeting on Thursday at 10 am . In this way he would have more time to think what end of life care he would want for his fa ther. Impression * Respiratory distress 2nd to Pneumonia * Agitation * Hypotension * Patient's wishes for end of life care are not known * Patient's son advocates for patient * Patient's son seems overwhelmed by the situation and having unreal;istic expectations * Son is undecided on trach /PEG in case patient needed senior care MV support Suggestion * Continue MV support * Suction PRN * Consider blood transfusion if Hb < 8.5 * DC Ativan, use restraints to prevent patient from removing EET if gets ag itated * Weaning trial as possible * Aspiration precautions Advance care planing 60 min. Family meeting on Thursday at 10 am.
[2018-12-24 11:57] LABS: PROTHROMBIN TIME 11.3 SECONDS (9.7-12.2)
--- NOTE | 2018-12-24 12:13 | CP.PCM.CON ---
History of Present Illness - History of Present Illness History of Present Illness: Initial PGY5 GI Consult Jeanette Ambrose is a 83M w/ hx of severe aortic stenosis paroxysmal A-fib, HTN, and dementia, who was admitted for sepsis 2/2 to [facility]. Pt was intubated 2 days prior, so all information obtained is from the chart and staff. Pt has had a complicated course since admission which required intubation and treatment for rapid afib w/ RVR. After intubation, ICU was not able to place and OG or NG after multiple attempts. He has been without and feeds or PO meds since intubation. Pt was noted to have a prior gastric surgery and on previous CT abd in Oct 2018, stomach and bowel was hard to eval due to lack of contrast. Pt remained hypotensive since intubation. Unknown PO status prior to admission. PMhx: see above Surgical history gallbladder removal hernia repair stomach correction Social Hx: unknown Endo hx: unknown Family Hx: unknown ROS: could not be conducted 2/2 intubation Past Patient History - Past Medical History & Family History Past Medical History?: No - Past Social History Smoking Status: Unknown If Ever Smoked - CARDIAC Hx Atrial Fibrillation: Yes Hx Hypertension: No Hx Pacemaker: No - PULMONARY Hx Respiratory Disorders: No Hx Tuberculosis: No - NEUROLOGICAL Hx Dementia: Yes Hx Seizures: No - HEENT Hx HEENT Problems: Yes Hx Glaucoma: Yes - RENAL Hx Chronic Kidney Disease: No - ENDOCRINE/METABOLIC Hx Endocrine Disorders: No - HEMATOLOGICAL/ONCOLOGICAL Hx Human Immunodeficiency Virus (HIV): No - INTEGUMENTARY Hx Dermatological Problems: No - MUSCULOSKELETAL/RHEUMATOLOGICAL Hx Falls: Yes - GASTROINTESTINAL Hx Gastrointestinal Disorders: Yes Other/Comment: liver abscess - GENITOURINARY/GYNECOLOGICAL Hx Sexually Transmitted Disorders: No - PSYCHIATRIC Hx Substance Use: No - SURGICAL HISTORY Hx Cholecystectomy: Yes - ANESTHESIA Hx Anesthesia: Yes Hx Anesthesia Reactions: No Hx Malignant Hyperthermia: No Has any member of the family had a problem w/ anesthesia?: No Meds Allergies/Adverse Reactions: Allergies Allergy/AdvReac Type Severity Reaction Status Date / Time No Known Allergies Allergy Verified 12/16/18 03:29 - Medications Medications: Current Medications Acetaminophen (Tylenol 325mg Tab) 650 mg PO Q6 PRN PRN Reason: Fever >100.4 F Last Admin: 12/21/18 13:51 Dose: 650 mg Albuterol/Ipratropium (Duoneb 3 Mg/0.5 Mg (3 Ml) Ud) 3 ml INH RQ4 [facility] Last Admin: 12/24/18 08:13 Dose: 3 ml Apixaban (Eliquis) 2.5 mg PO BID [facility] Last Admin: 12/24/18 10:01 Dose: Not Given Diltiazem HCl (Cardizem) 30 mg PO TID [facility] Last Admin: 12/24/18 10:01 Dose: Not Given Donepezil HCl (Aricept) 5 mg PO HS [facility] Last Admin: 12/23/18 21:14 Dose: Not Given Finasteride (Proscar) 5 mg PO DAILY [facility] Last Admin: 12/24/18 10:02 Dose: Not Given Guaifenesin (Robitussin) 100 mg PO BID [facility] Last Admin: 12/24/18 10:02 Dose: Not Given Cefepime HCl 2 gm/ Sodium (Chloride) 100 mls @ 100 mls/hr IVPB Q12H [facility]; Pro tocol Last Admin: 12/24/18 02:31 Dose: 100 mls/hr Vancomycin HCl 1,000 mg/ (Sodium Chloride) 250 mls @ 166.6 mls/hr IVPB DAILY [facility]; Protocol Last Admin: 12/23/18 09:48 Dose: 166.6 mls/hr Dextrose/Sodium Chloride (Dextrose 5%/0.45% Ns 1000 Ml) 1,000 mls @ 75 mls/hr IV .[id number] [facility] Last Admin: 12/24/18 10:01 Dose: Not Given Amiodarone HCl 900 mg/ (Dextrose) 500 mls @ 17 mls/hr IV Q24H [facility] Stop: 12/24/18 20:59 Last Admin: 12/24/18 02:27 Dose: 17 mls/hr Dexmedetomidine HCl 200 mcg/ (Sodium Chloride) 50 mls @ 2.09 mls/hr IV TITR PRN; Protocol PRN Reason: Agitation Last Titration: 12/24/18 06:39 Dose: 0.2 mcg/kg/hr, 2.1 mls/hr Latanoprost (Xalatan Opht) 0.05 ml OU HS [facility] Last Admin: 12/23/18 21:13 Dose: 0.05 ml Lorazepam (Ativan) 1 mg IVP Q8H PRN PRN Reason: Agitation Last Admin: 12/23/18 20:31 Dose: 1 mg Pantoprazole Sodium (Protonix Inj) 40 mg IVP DAILY [facility] Last Admin: 12/24/18 09:58 Dose: 40 mg Rosuvastatin Calcium (Crestor) 10 mg PO HS [facility] Last Admin: 12/23/18 21:14 Dose: Not Given Saccharomyces Boulardii (Florastor) 250 mg PO BID [facility] Last Admin: 12/24/18 10:02 Dose: Not Given Verapamil HCl (Calan Sr Tab) 120 mg PO DAILY [facility] Last Admin: 12/24/18 10:01 Dose: Not Given Physical Exam - Constitutional Appears: No Acute Distress - Head Exam Head Exam: ATRAUMATIC, NORMOCEPHALIC - Eye Exam Eye Exam: Normal appearance - ENT Exam ENT Exam: Mucous Membranes Moist, Normal Exam - Respiratory Exam Respiratory Exam: Clear to Auscultation Bilateral, NORMAL BREATHING PATTERN. absent: Rales, Rhonchi, Wheezes, Respiratory Distress - Cardiovascular Exam Cardiovascular Exam: REGULAR RHYTHM, +S1, +S2 - GI/Abdominal Exam GI & Abdominal Exam: Normal Bowel Sounds, Soft. absent: Diminished Bowel Sounds, Distended, Firm, Guarding, Hernia, Rebound, Rigid, Tenderness Additional comments: midline incision scar; healed - Extremities Exam Extremities exam: Negative for: joint swelling, pedal edema - Neurological Exam Neurological exam: Altered - Psychiatric Exam Additional comments: could not assess - Skin Skin Exam: Dry, Intact, Normal Color, Warm Results - Vital Signs Recent Vital Signs: Last Vital Signs Temp 98.2 F 12/24/18 04:00 Pulse 96 H 12/24/18 06:00 Resp 21 12/24/18 06:00 BP 90/60 L 12/24/18 05:20 Pulse Ox 98 12/24/18 06:00 - Labs Result Diagrams: 12/24/18 06:25 12/24/18 06:20 Labs: Laboratory Results - last 24 hr 12/23/18 12/23/18 12/24/18 17:40 23:20 05:25 WBC RBC Hgb Hct MCV MCH MCHC RDW Plt Count MPV Neut % (Auto) Lymph % (Auto) [place] % (Auto) Eos % (Auto) Baso % (Auto) Neut # (Auto) Lymph # (Auto) [place] # (Auto) Eos # (Auto) Baso # (Auto) Neutrophils % (Manual) Band Neutrophils % Lymphocytes % (Manual) Monocytes % (Manual) Platelet Estimate Hypochromasia (manual) Poikilocytosis (manual Anisocytosis (manual) PT INR APTT Puncture Site Rb pCO2 29 L pO2 80 HCO3 23.8 ABG pH 7.48 H ABG Total CO2 22.5 ABG O2 Saturation 96.9 ABG Base Excess -1.4 ABG Hemoglobin 8.9 L ABG Carboxyhemoglobin 0.7 POC ABG HHb (Measured) 3.1 ABG Methemoglobin 0.4 Naif Test Na A-a O2 Difference 312.0 Respiratory Index 3.9 Hgb O2 Saturation 95.8 Vent Mode Prvc Mechanical Rate 18 FiO2 60.0 Tidal Volume 500 PEEP 5 Sodium Potassium Chloride Carbon Dioxide Anion Gap BUN Creatinine Est GFR ( Amer) Est GFR (Non-Af Amer) POC Glucose (mg/dL) 129 H 154 H Random Glucose Calcium Phosphorus Magnesium Total Bilirubin AST ALT Alkaline Phosphatase Total Protein Albumin Globulin Albumin/Globulin Ratio Vancomycin Trough 12/24/18 12/24/18 12/24/18 05:46 06:20 06:25 WBC 12.0 H RBC 3.22 L Hgb 8.8 L Hct 27.7 L MCV 86.1 MCH 27.3 MCHC 31.7 L RDW 19.6 H Plt Count 248 MPV 7.6 Neut % (Auto) 92.5 H Lymph % (Auto) 4.2 L [place] % (Auto) 3.2 Eos % (Auto) 0.0 Baso % (Auto) 0.1 Neut # (Auto) 11.1 H Lymph # (Auto) 0.5 L [place] # (Auto) 0.4 Eos # (Auto) 0.0 Baso # (Auto) 0.0 Neutrophils % (Manual) 89 H Band Neutrophils % 6 H Lymphocytes % (Manual) 3 L Monocytes % (Manual) 2 Platelet Estimate Normal Hypochromasia (manual) Slight Poikilocytosis (manual Slight Anisocytosis (manual) Slight PT INR APTT Puncture Site pCO2 pO2 HCO3 ABG pH ABG Total CO2 ABG O2 Saturation ABG Base Excess ABG Hemoglobin ABG Carboxyhemoglobin POC ABG HHb (Measured) ABG Methemoglobin Naif Test A-a O2 Difference Respiratory Index Hgb O2 Saturation Vent Mode Mechanical Rate FiO2 Tidal Volume PEEP Sodium 134 Potassium 3.3 L Chloride 105 Carbon Dioxide 25 Anion Gap 7 L BUN 32 H Creatinine 1.4 Est GFR ( Amer) 59 Est GFR (Non-Af Amer) 48 POC Glucose (mg/dL) 112 H Random Glucose 98 Calcium 7.9 L Phosphorus 3.0 Magnesium 1.9 Total Bilirubin 0.3 AST 94 H ALT 35 Alkaline Phosphatase 77 Total Protein 4.9 L Albumin 2.1 L Globulin 2.8 Albumin/Globulin Ratio 0.7 L Vancomycin Trough 12/24/18 12/24/18 09:51 11:44 WBC RBC Hgb Hct MCV MCH MCHC RDW Plt Count MPV Neut % (Auto) Lymph % (Auto) [place] % (Auto) Eos % (Auto) Baso % (Auto) Neut # (Auto) Lymph # (Auto) [place] # (Auto) Eos # (Auto) Baso # (Auto) Neutrophils % (Manual) Band Neutrophils % Lymphocytes % (Manual) Monocytes % (Manual) Platelet Estimate Hypochromasia (manual) Poikilocytosis (manual Anisocytosis (manual) PT 11.3 INR 1.0 APTT 35 H Puncture Site pCO2 pO2 HCO3 ABG pH ABG Total CO2 ABG O2 Saturation ABG Base Excess ABG Hemoglobin ABG Carboxyhemoglobin POC ABG HHb (Measured) ABG Methemoglobin Naif Test A-a O2 Difference Respiratory Index Hgb O2 Saturation Vent Mode Mechanical Rate FiO2 Tidal Volume PEEP Sodium Potassium Chloride Carbon Dioxide Anion Gap BUN Creatinine Est GFR ( Amer) Est GFR (Non-Af Amer) POC Glucose (mg/dL) Random Glucose Calcium Phosphorus Magnesium Total Bilirubin AST ALT Alkaline Phosphatase Total Protein Albumin Globulin Albumin/Globulin Ratio Vancomycin Trough 19.6 H Assessment & Plan - Assessment and Plan (Free Text) Assessment: Jeanette Dahl is a 83M w/ hx of gastric repair?, CVA, HTN, Dementia who presented with SOB, fever. Pt is being treated for respiratory failure 2/2 PNA and Sepsis. GI was consulted for PEG placement. Dysphagia, nutritional support Dementia Sepsis Hx of gastric repair? PNA Plan: -will continue to monitor hospital course -recommend pt BP stablize and sepsis improves -continue abx as ordered by ICU -will need consent from family -pt needs to be off of eliqus for 3 days prior to procedure, can bridge with heparin drip, turn off 6 hrs prior to procedure -will reeval on thursday, if more stable will consider placement on Thursday -recommend palliative care consult for goals of care discussion D/W Dr. Franklin and agrees with the above
--- NOTE | 2018-12-24 13:04 | CP.PCM.CON ---
History of Present Illness - History of Present Illness History of Present Illness: Consult Note for Dr. Jamil HPI: Patient is a 83 year old male with history of severe aortic stenosis, paroxysmal Afib, HTN, dementia admitted for sepsis secondary to HCAP. Patient was intubated on the floor on 12/22/18 after [employer] was called after he became hypoxic with O2 sat of 60% on NC. Consult placed for trach evaluation. Unable to obtain ROS since patient is intubated and sedated. Full code POA: Son Jose Ambrose [phone] PMH: severe aortic stenosis, paroxysmal A-fib, HTN, and dementia PSH: history of partial gastrectomy? Allergies: NKDA Family hx: unknown Social hx: unknown PMD: Dr. Norris Review of Systems - Review of Systems Systems not reviewed;Unavailable: Intubated Past Patient History - Past Medical History & Family History Past Medical History?: No - Past Social History Smoking Status: Unknown If Ever Smoked - CARDIAC Hx Atrial Fibrillation: Yes Hx Hypertension: No Hx Pacemaker: No - PULMONARY Hx Respiratory Disorders: No Hx Tuberculosis: No - NEUROLOGICAL Hx Dementia: Yes Hx Seizures: No - HEENT Hx HEENT Problems: Yes Hx Glaucoma: Yes - RENAL Hx Chronic Kidney Disease: No - ENDOCRINE/METABOLIC Hx Endocrine Disorders: No - HEMATOLOGICAL/ONCOLOGICAL Hx Human Immunodeficiency Virus (HIV): No - INTEGUMENTARY Hx Dermatological Problems: No - MUSCULOSKELETAL/RHEUMATOLOGICAL Hx Falls: Yes - GASTROINTESTINAL Hx Gastrointestinal Disorders: Yes Other/Comment: liver abscess - GENITOURINARY/GYNECOLOGICAL Hx Sexually Transmitted Disorders: No - PSYCHIATRIC Hx Substance Use: No - SURGICAL HISTORY Hx Cholecystectomy: Yes - ANESTHESIA Hx Anesthesia: Yes Hx Anesthesia Reactions: No Hx Malignant Hyperthermia: No Has any member of the family had a problem w/ anesthesia?: No Meds Allergies/Adverse Reactions: Allergies Allergy/AdvReac Type Severity Reaction Status Date / Time No Known Allergies Allergy Verified 12/16/18 03:29 - Medications Medications: Current Medications Acetaminophen (Tylenol 325mg Tab) 650 mg PO Q6 PRN PRN Reason: Fever >100.4 F Last Admin: 12/21/18 13:51 Dose: 650 mg Albuterol/Ipratropium (Duoneb 3 Mg/0.5 Mg (3 Ml) Ud) 3 ml INH RQ4 VINCENT Last Admin: 12/24/18 11:16 Dose: 3 ml Apixaban (Eliquis) 2.5 mg PO BID COUNT INCLUDES THE [facility] Last Admin: 12/24/18 10:01 Dose: Not Given Diltiazem HCl (Cardizem) 30 mg PO TID COUNT INCLUDES THE [facility] Last Admin: 12/24/18 10:01 Dose: Not Given Donepezil HCl (Aricept) 5 mg PO HS COUNT INCLUDES THE [facility] Last Admin: 12/23/18 21:14 Dose: Not Given Finasteride (Proscar) 5 mg PO DAILY COUNT INCLUDES THE [facility] Last Admin: 12/24/18 10:02 Dose: Not Given Guaifenesin (Robitussin) 100 mg PO BID COUNT INCLUDES THE [facility] Last Admin: 12/24/18 10:02 Dose: Not Given Cefepime HCl 2 gm/ Sodium (Chloride) 100 mls @ 100 mls/hr IVPB Q12H COUNT INCLUDES THE [facility]; Protocol Last Admin: 12/24/18 02:31 Dose: 100 mls/hr Vancomycin HCl 1,000 mg/ (Sodium Chloride) 250 mls @ 166.6 mls/hr IVPB DAILY COUNT INCLUDES THE [facility]; Protocol Last Admin: 12/23/18 09:48 Dose: 166.6 mls/hr Dextrose/Sodium Chloride (Dextrose 5%/0.45% Ns 1000 Ml) 1,000 mls @ 75 mls/hr IV .[id number] COUNT INCLUDES THE [facility] Last Admin: 12/24/18 10:01 Dose: Not Given Amiodarone HCl 900 mg/ (Dextrose) 500 mls @ 17 mls/hr IV Q24H COUNT INCLUDES THE [facility] Stop: 12/24/18 20:59 Last Admin: 12/24/18 02:27 Dose: 17 mls/hr Dexmedetomidine HCl 200 mcg/ (Sodium Chloride) 50 mls @ 2.09 mls/hr IV TITR PRN; Protocol PRN Reason: Agitation Last Titration: 12/24/18 06:39 Dose: 0.2 mcg/kg/hr, 2.1 mls/hr Latanoprost (Xalatan Opht) 0.05 ml OU HS COUNT INCLUDES THE [facility] Last Admin: 12/23/18 21:13 Dose: 0.05 ml Lorazepam (Ativan) 1 mg IVP Q8H PRN PRN Reason: Agitation Last Admin: 12/23/18 20:31 Dose: 1 mg Pantoprazole Sodium (Protonix Inj) 40 mg IVP DAILY COUNT INCLUDES THE [facility] Last Admin: 12/24/18 09:58 Dose: 40 mg Rosuvastatin Calcium (Crestor) 10 mg PO HS COUNT INCLUDES THE [facility] Last Admin: 12/23/18 21:14 Dose: Not Given Saccharomyces Boulardii (Florastor) 250 mg PO BID COUNT INCLUDES THE [facility] Last Admin: 12/24/18 10:02 Dose: Not Given Verapamil HCl (Calan Sr Tab) 120 mg PO DAILY COUNT INCLUDES THE [facility] Last Admin: 12/24/18 10:01 Dose: Not Given Physical Exam - Constitutional Appears: Cachectic, Chronically Ill - Head Exam Head Exam: ATRAUMATIC, NORMOCEPHALIC - Eye Exam Eye Exam: EOMI - ENT Exam ENT Exam: Mucous Membranes Moist - Respiratory Exam Additional comments: Intubated on vent - Cardiovascular Exam Cardiovascular Exam: +S1, +S2, Systolic Murmur - GI/Abdominal Exam GI & Abdominal Exam: Normal Bowel Sounds, Soft - Extremities Exam Extremities exam: Positive for: pedal pulses present - Neurological Exam Neurological exam: Alert Additional comments: Intubated Results - Vital Signs Recent Vital Signs: Last Vital Signs Temp 98.2 F 12/24/18 04:00 Pulse 96 H 12/24/18 06:00 Resp 21 12/24/18 06:00 BP 90/60 L 12/24/18 05:20 Pulse Ox 98 12/24/18 06:00 - Labs Result Diagrams: 12/24/18 06:25 12/24/18 06:20 Labs: Laboratory Results - last 24 hr 12/23/18 12/23/18 12/24/18 17:40 23:20 05:25 WBC RBC Hgb Hct MCV MCH MCHC RDW Plt Count MPV Neut % (Auto) Lymph % (Auto) [place] % (Auto) Eos % (Auto) Baso % (Auto) Neut # (Auto) Lymph # (Auto) [place] # (Auto) Eos # (Auto) Baso # (Auto) Neutrophils % (Manual) Band Neutrophils % Lymphocytes % (Manual) Monocytes % (Manual) Platelet Estimate Hypochromasia (manual) Poikilocytosis (manual Anisocytosis (manual) PT INR APTT Puncture Site Rb pCO2 29 L pO2 80 HCO3 23.8 ABG pH 7.48 H ABG Total CO2 22.5 ABG O2 Saturation 96.9 ABG Base Excess -1.4 ABG Hemoglobin 8.9 L ABG Carboxyhemoglobin 0.7 POC ABG HHb (Measured) 3.1 ABG Methemoglobin 0.4 Naif Test Na A-a O2 Difference 312.0 Respiratory Index 3.9 Hgb O2 Saturation 95.8 Vent Mode Prvc Mechanical Rate 18 FiO2 60.0 Tidal Volume 500 PEEP 5 Sodium Potassium Chloride Carbon Dioxide Anion Gap BUN Creatinine Est GFR ( Amer) Est GFR (Non-Af Amer) POC Glucose (mg/dL) 129 H 154 H Random Glucose Calcium Phosphorus Magnesium Total Bilirubin AST ALT Alkaline Phosphatase Total Protein Albumin Globulin Albumin/Globulin Ratio Vancomycin Trough 12/24/18 12/24/18 12/24/18 05:46 06:20 06:25 WBC 12.0 H RBC 3.22 L Hgb 8.8 L Hct 27.7 L MCV 86.1 MCH 27.3 MCHC 31.7 L RDW 19.6 H Plt Count 248 MPV 7.6 Neut % (Auto) 92.5 H Lymph % (Auto) 4.2 L [place] % (Auto) 3.2 Eos % (Auto) 0.0 Baso % (Auto) 0.1 Neut # (Auto) 11.1 H Lymph # (Auto) 0.5 L [place] # (Auto) 0.4 Eos # (Auto) 0.0 Baso # (Auto) 0.0 Neutrophils % (Manual) 89 H Band Neutrophils % 6 H Lymphocytes % (Manual) 3 L Monocytes % (Manual) 2 Platelet Estimate Normal Hypochromasia (manual) Slight Poikilocytosis (manual Slight Anisocytosis (manual) Slight PT INR APTT Puncture Site pCO2 pO2 HCO3 ABG pH ABG Total CO2 ABG O2 Saturation ABG Base Excess ABG Hemoglobin ABG Carboxyhemoglobin POC ABG HHb (Measured) ABG Methemoglobin Naif Test A-a O2 Difference Respiratory Index Hgb O2 Saturation Vent Mode Mechanical Rate FiO2 Tidal Volume PEEP Sodium 134 Potassium 3.3 L Chloride 105 Carbon Dioxide 25 Anion Gap 7 L BUN 32 H Creatinine 1.4 Est GFR ( Amer) 59 Est GFR (Non-Af Amer) 48 POC Glucose (mg/dL) 112 H Random Glucose 98 Calcium 7.9 L Phosphorus 3.0 Magnesium 1.9 Total Bilirubin 0.3 AST 94 H ALT 35 Alkaline Phosphatase 77 Total Protein 4.9 L Albumin 2.1 L Globulin 2.8 Albumin/Globulin Ratio 0.7 L Vancomycin Trough 12/24/18 12/24/18 12/24/18 09:51 11:44 12:01 WBC RBC Hgb Hct MCV MCH MCHC RDW Plt Count MPV Neut % (Auto) Lymph % (Auto) [place] % (Auto) Eos % (Auto) Baso % (Auto) Neut # (Auto) Lymph # (Auto) [place] # (Auto) Eos # (Auto) Baso # (Auto) Neutrophils % (Manual) Band Neutrophils % Lymphocytes % (Manual) Monocytes % (Manual) Platelet Estimate Hypochromasia (manual) Poikilocytosis (manual Anisocytosis (manual) PT 11.3 INR 1.0 APTT 35 H Puncture Site pCO2 pO2 HCO3 ABG pH ABG Total CO2 ABG O2 Saturation ABG Base Excess ABG Hemoglobin ABG Carboxyhemoglobin POC ABG HHb (Measured) ABG Methemoglobin Naif Test A-a O2 Difference Respiratory Index Hgb O2 Saturation Vent Mode Mechanical Rate FiO2 Tidal Volume PEEP Sodium Potassium Chloride Carbon Dioxide Anion Gap BUN Creatinine Est GFR ( Amer) Est GFR (Non-Af Amer) POC Glucose (mg/dL) 86 Random Glucose Calcium Phosphorus Magnesium Total Bilirubin AST ALT Alkaline Phosphatase Total Protein Albumin Globulin Albumin/Globulin Ratio Vancomycin Trough 19.6 H Assessment & Plan - Assessment and Plan (Free Text) Assessment: 83 year old male with history of severe aortic stenosis, paroxysmal A-fib, HTN, and dementia who was intubated after patient became hypoxic. Consult placed for possible tracheostomy and gastrostomy. Plan: Possible open gastrostomy pending GIs attempt of PEG Plan for trach on Thursday12/28/18 Rosangela Malhotra, PGY1
--- NOTE | 2018-12-24 13:58 | CP.CCUPN ---
<EthanHuey - Last Filed: 12/24/18 15:46> CCU Subjective - Physician Review Subjective (Free Text): ICU Progress Note for Dr. Durham Pt seen and examined at bedside. Currently intubated, unable to obtain HPI or ROS due to pt's current clinical status. No acute events reported overnight by staff. Pt hypotensive. CCU Objective - Vital Signs / Intake & Output Vital Signs (Last 4 hours): Vital Signs Pulse Resp BP Pulse Ox 12/24/18 13:20 90 20 79/52 L 100 12/24/18 13:00 92 H 20 100 12/24/18 12:20 84 18 87/54 L 100 12/24/18 12:00 92 H 24 100 12/24/18 11:51 100 H 28 H 95/53 L 99 12/24/18 11:27 91 H 19 77/47 L 97 12/24/18 11:20 92 H 20 75/51 L 97 12/24/18 11:00 88 18 99 12/24/18 10:21 91 H 18 81/49 L 99 12/24/18 10:00 88 27 H 99 Intake and Output (Last 8hrs): Intake & Output 12/23/18 12/24/18 12/24/18 22:59 06:59 14:59 Intake Total 768.1 879.8 Output Total 300 300 Balance 468.1 579.8 Weight 93 lb Intake: IV 34.0 Intake, IV Amount 768.1 845.8 rt ij distal port 166 200 rt ij middle port 2.1 20.8 rt. IJ TLC 600 625 Output: Urine 300 300 Urine, Voided 300 300 Other: # Voids Urine, Voided 3 - Physical Exam Head: Positive for: Atraumatic, Normocephalic Pupils: Positive for: PERRL Conjunctiva: Positive for: Normal Mouth: Positive for: Moist Mucous Membranes Respiratory/Chest: Positive for: Rales, Other (intubated on ventilator) Cardiovascular: Positive for: Murmurs (systolic murmur appreciated), Normal S1, S2, Tachycardic, Rub, Gallop Abdomen: Positive for: Normal Bowel Sounds. Negative for: Tenderness, Distention Lower Extremity: Positive for: Normal Inspection, NORMAL PULSES, Neurovascularly Intact, Capillary Refill < 2 s. Negative for: Edema Neurological: Positive for: Other (intubated) Skin: Positive for: Warm, Dry, Normal Color Psychiatric: Positive for: Other (intubated) - Medications Active Medications: Active Medications Generic Name Dose Route Start Last Admin Trade Name Freq PRN Reason Stop Dose Admin Acetaminophen 650 mg 12/16/18 07:35 12/21/18 13:51 Tylenol 325mg Tab PO 650 mg Q6 PRN Administration Fever >100.4 F Albuterol/Ipratropium 3 ml 12/16/18 08:00 12/24/18 11:16 Duoneb 3 Mg/0.5 Mg (3 Ml) Ud INH 3 ml RQ4 VINCENT Administration Apixaban 2.5 mg 12/16/18 18:00 12/24/18 10:01 Eliquis PO Not Given BID VINCENT Diltiazem HCl 30 mg 12/21/18 14:45 12/24/18 10:01 Cardizem PO Not Given TID VINCENT Donepezil HCl 5 mg 12/16/18 22:00 12/23/18 21:14 Aricept PO Not Given HS VINCENT Finasteride 5 mg 12/16/18 12:00 12/24/18 10:02 Proscar PO Not Given DAILY VINCENT Guaifenesin 100 mg 12/23/18 18:00 12/24/18 10:02 Robitussin PO Not Given BID VINCENT Cefepime HCl 2 gm/ Sodium 100 mls @ 100 mls/hr 12/17/18 14:30 12/24/18 02:31 Chloride IVPB 100 mls/hr Q12H VINCENT Administration Protocol Vancomycin HCl 1,000 mg/ 250 mls @ 166.6 mls/hr 12/21/18 10:00 12/23/18 09:48 Sodium Chloride IVPB 166.6 mls/hr DAILY VINCENT Administration Protocol Dextrose/Sodium Chloride 1,000 mls @ 75 mls/hr 12/23/18 01:00 12/24/18 10:01 Dextrose 5%/0.45% Ns 1000 Ml IV Not Given .[id number] VINCENT Amiodarone HCl 900 mg/ 500 mls @ 17 mls/hr 12/24/18 03:01 12/24/18 02:27 Dextrose IV 12/24/18 20:59 17 mls/hr Q24H VINCENT Administration Dexmedetomidine HCl 200 mcg/ 50 mls @ 2.09 mls/hr 12/23/18 21:00 12/24/18 06:39 Sodium Chloride IV 0.2 mcg/kg/hr TITR PRN 2.1 mls/hr Agitation Titration Protocol 0.2 MCG/KG/HR Latanoprost 0.05 ml 12/16/18 22:00 12/23/18 21:13 Xalatan Opht OU 0.05 ml HS VINCENT Administration Lorazepam 1 mg 12/18/18 18:38 12/23/18 20:31 Ativan IVP 1 mg Q8H PRN Administration Agitation Pantoprazole Sodium 40 mg 12/23/18 12:45 12/24/18 09:58 Protonix Inj IVP 40 mg DAILY VINCENT Administration Rosuvastatin Calcium 10 mg 12/16/18 22:00 12/23/18 21:14 Crestor PO Not Given HS VINCENT Saccharomyces Boulardii 250 mg 12/16/18 12:00 12/24/18 10:02 Florastor PO Not Given BID VINCENT Verapamil HCl 120 mg 12/16/18 12:00 12/24/18 10:01 Calan Sr Tab PO Not Given DAILY VINCENT - Patient Studies Lab Studies: Microbiology Studies 12/22/18 13:56 Blood Culture - Preliminary Blood NO GROWTH AFTER 24 HOURS 12/22/18 13:56 Blood Culture - Preliminary Blood NO GROWTH AFTER 24 HOURS 12/22/18 17:00 MRSA Culture (Admit) - Final Naris MRSA NOT DETECTED Lab Studies 12/24/18 12/24/18 12/24/18 Range/Units 12:01 11:44 09:51 WBC (4.8-10.8) K/uL RBC (4.40-5.90) Mil/uL Hgb (12.0-18.0) g/dL Hct (35.0-51.0) % MCV (80.0-94.0) fL MCH (27.0-31.0) pg MCHC (33.0-37.0) g/dL RDW (11.5-14.5) % Plt Count (130-400) K/uL MPV (7.2-11.7) fL Neut % (Auto) (50.0-75.0) % Lymph % (Auto) (20.0-40.0) % Kerr % (Auto) (0.0-10.0) % Eos % (Auto) (0.0-4.0) % Baso % (Auto) (0.0-2.0) % Neut # (Auto) (1.8-7.0) K/uL Lymph # (Auto) (1.0-4.3) K/uL Kerr # (Auto) (0.0-0.8) K/uL Eos # (Auto) (0.0-0.7) K/uL Baso # (Auto) (0.0-0.2) K/uL Neutrophils % (Manual) (50-75) % Band Neutrophils % (0-2) % Lymphocytes % (Manual) (20-40) % Monocytes % (Manual) (0-10) % Platelet Estimate (NORMAL) Hypochromasia (manual) Poikilocytosis (manual Anisocytosis (manual) PT 11.3 (9.7-12.2) SECONDS INR 1.0 APTT 35 H (21-34) SECONDS Puncture Site pCO2 (35-45) mm/Hg pO2 (80-100) mm/Hg HCO3 (21-28) mmol/L ABG pH (7.35-7.45) ABG Total CO2 (22-28) mmol/L ABG O2 Saturation (95-98) % ABG Base Excess (-2.0-3.0) mmol/L ABG Hemoglobin (11.7-17.4) g/dL ABG Carboxyhemoglobin (0.5-1.5) % POC ABG HHb (Measured) (0.0-5.0) % ABG Methemoglobin (0.0-3.0) % Naif Test A-a O2 Difference mm/Hg Respiratory Index Hgb O2 Saturation (95.0-98.0) % Vent Mode Mechanical Rate FiO2 % Tidal Volume PEEP Sodium (132-148) mmol/L Potassium (3.6-5.2) mmol/L Chloride (98-107) mmol/L Carbon Dioxide (22-30) mmol/L Anion Gap (10-20) BUN (9-20) mg/dL Creatinine (0.8-1.5) mg/dL Est GFR ( Amer) Est GFR (Non-Af Amer) POC Glucose (mg/dL) 86 (65-110) mg/dL Random Glucose (75-110) mg/dL Calcium (8.6-10.4) mg/dl Phosphorus (2.5-4.5) mg/dL Magnesium (1.6-2.3) mg/dL Total Bilirubin (0.2-1.3) mg/dL AST (17-59) U/L ALT (21-72) U/L Alkaline Phosphatase (38-126) U/L Total Protein (6.3-8.3) g/dL Albumin (3.5-5.0) g/dL Globulin (2.2-3.9) gm/dL Albumin/Globulin Ratio (1.0-2.1) Vancomycin Trough 19.6 H (5.0-10.0) ug/mL 12/24/18 12/24/18 12/24/18 Range/Units 06:25 06:20 05:46 WBC 12.0 H (4.8-10.8) K/uL RBC 3.22 L (4.40-5.90) Mil/uL Hgb 8.8 L (12.0-18.0) g/dL Hct 27.7 L (35.0-51.0) % MCV 86.1 (80.0-94.0) fL MCH 27.3 (27.0-31.0) pg MCHC 31.7 L (33.0-37.0) g/dL RDW 19.6 H (11.5-14.5) % Plt Count 248 (130-400) K/uL MPV 7.6 (7.2-11.7) fL Neut % (Auto) 92.5 H (50.0-75.0) % Lymph % (Auto) 4.2 L (20.0-40.0) % Kerr % (Auto) 3.2 (0.0-10.0) % Eos % (Auto) 0.0 (0.0-4.0) % Baso % (Auto) 0.1 (0.0-2.0) % Neut # (Auto) 11.1 H (1.8-7.0) K/uL Lymph # (Auto) 0.5 L (1.0-4.3) K/uL Kerr # (Auto) 0.4 (0.0-0.8) K/uL Eos # (Auto) 0.0 (0.0-0.7) K/uL Baso # (Auto) 0.0 (0.0-0.2) K/uL Neutrophils % (Manual) 89 H (50-75) % Band Neutrophils % 6 H (0-2) % Lymphocytes % (Manual) 3 L (20-40) % Monocytes % (Manual) 2 (0-10) % Platelet Estimate Normal (NORMAL) Hypochromasia (manual) Slight Poikilocytosis (manual Slight Anisocytosis (manual) Slight PT (9.7-12.2) SECONDS INR APTT (21-34) SECONDS Puncture Site pCO2 (35-45) mm/Hg pO2 (80-100) mm/Hg HCO3 (21-28) mmol/L ABG pH (7.35-7.45) ABG Total CO2 (22-28) mmol/L ABG O2 Saturation (95-98) % ABG Base Excess (-2.0-3.0) mmol/L ABG Hemoglobin (11.7-17.4) g/dL ABG Carboxyhemoglobin (0.5-1.5) % POC ABG HHb (Measured) (0.0-5.0) % ABG Methemoglobin (0.0-3.0) % Naif Test A-a O2 Difference mm/Hg Respiratory Index Hgb O2 Saturation (95.0-98.0) % Vent Mode Mechanical Rate FiO2 % Tidal Volume PEEP Sodium 134 (132-148) mmol/L Potassium 3.3 L (3.6-5.2) mmol/L Chloride 105 (98-107) mmol/L Carbon Dioxide 25 (22-30) mmol/L Anion Gap 7 L (10-20) BUN 32 H (9-20) mg/dL Creatinine 1.4 (0.8-1.5) mg/dL Est GFR ( Amer) 59 Est GFR (Non-Af Amer) 48 POC Glucose (mg/dL) 112 H (65-110) mg/dL Random Glucose 98 (75-110) mg/dL Calcium 7.9 L (8.6-10.4) mg/dl Phosphorus 3.0 (2.5-4.5) mg/dL Magnesium 1.9 (1.6-2.3) mg/dL Total Bilirubin 0.3 (0.2-1.3) mg/dL AST 94 H (17-59) U/L ALT 35 (21-72) U/L Alkaline Phosphatase 77 (38-126) U/L Total Protein 4.9 L (6.3-8.3) g/dL Albumin 2.1 L (3.5-5.0) g/dL Globulin 2.8 (2.2-3.9) gm/dL Albumin/Globulin Ratio 0.7 L (1.0-2.1) Vancomycin Trough (5.0-10.0) ug/mL 12/24/18 12/23/18 12/23/18 Range/Units 05:25 23:20 17:40 WBC (4.8-10.8) K/uL RBC (4.40-5.90) Mil/uL Hgb (12.0-18.0) g/dL Hct (35.0-51.0) % MCV (80.0-94.0) fL MCH (27.0-31.0) pg MCHC (33.0-37.0) g/dL RDW (11.5-14.5) % Plt Count (130-400) K/uL MPV (7.2-11.7) fL Neut % (Auto) (50.0-75.0) % Lymph % (Auto) (20.0-40.0) % Kerr % (Auto) (0.0-10.0) % Eos % (Auto) (0.0-4.0) % Baso % (Auto) (0.0-2.0) % Neut # (Auto) (1.8-7.0) K/uL Lymph # (Auto) (1.0-4.3) K/uL Kerr # (Auto) (0.0-0.8) K/uL Eos # (Auto) (0.0-0.7) K/uL Baso # (Auto) (0.0-0.2) K/uL Neutrophils % (Manual) (50-75) % Band Neutrophils % (0-2) % Lymphocytes % (Manual) (20-40) % Monocytes % (Manual) (0-10) % Platelet Estimate (NORMAL) Hypochromasia (manual) Poikilocytosis (manual Anisocytosis (manual) PT (9.7-12.2) SECONDS INR APTT (21-34) SECONDS Puncture Site Rb pCO2 29 L (35-45) mm/Hg pO2 80 (80-100) mm/Hg HCO3 23.8 (21-28) mmol/L ABG pH 7.48 H (7.35-7.45) ABG Total CO2 22.5 (22-28) mmol/L ABG O2 Saturation 96.9 (95-98) % ABG Base Excess -1.4 (-2.0-3.0) mmol/L ABG Hemoglobin 8.9 L (11.7-17.4) g/dL ABG Carboxyhemoglobin 0.7 (0.5-1.5) % POC ABG HHb (Measured) 3.1 (0.0-5.0) % ABG Methemoglobin 0.4 (0.0-3.0) % Naif Test Na A-a O2 Difference 312.0 mm/Hg Respiratory Index 3.9 Hgb O2 Saturation 95.8 (95.0-98.0) % Vent Mode Prvc Mechanical Rate 18 FiO2 60.0 % Tidal Volume 500 PEEP 5 Sodium (132-148) mmol/L Potassium (3.6-5.2) mmol/L Chloride (98-107) mmol/L Carbon Dioxide (22-30) mmol/L Anion Gap (10-20) BUN (9-20) mg/dL Creatinine (0.8-1.5) mg/dL Est GFR ( Amer) Est GFR (Non-Af Amer) POC Glucose (mg/dL) 154 H 129 H (65-110) mg/dL Random Glucose (75-110) mg/dL Calcium (8.6-10.4) mg/dl Phosphorus (2.5-4.5) mg/dL Magnesium (1.6-2.3) mg/dL Total Bilirubin (0.2-1.3) mg/dL AST (17-59) U/L ALT (21-72) U/L Alkaline Phosphatase (38-126) U/L Total Protein (6.3-8.3) g/dL Albumin (3.5-5.0) g/dL Globulin (2.2-3.9) gm/dL Albumin/Globulin Ratio (1.0-2.1) Vancomycin Trough (5.0-10.0) ug/mL Laboratory Results - last 24 hr 12/23/18 12/23/18 12/24/18 17:40 23:20 05:25 WBC RBC Hgb Hct MCV MCH MCHC RDW Plt Count MPV Neut % (Auto) Lymph % (Auto) Kerr % (Auto) Eos % (Auto) Baso % (Auto) Neut # (Auto) Lymph # (Auto) Kerr # (Auto) Eos # (Auto) Baso # (Auto) Neutrophils % (Manual) Band Neutrophils % Lymphocytes % (Manual) Monocytes % (Manual) Platelet Estimate Hypochromasia (manual) Poikilocytosis (manual Anisocytosis (manual) PT INR APTT Puncture Site Rb pCO2 29 L pO2 80 HCO3 23.8 ABG pH 7.48 H ABG Total CO2 22.5 ABG O2 Saturation 96.9 ABG Base Excess -1.4 ABG Hemoglobin 8.9 L ABG Carboxyhemoglobin 0.7 POC ABG HHb (Measured) 3.1 ABG Methemoglobin 0.4 Naif Test Na A-a O2 Difference 312.0 Respiratory Index 3.9 Hgb O2 Saturation 95.8 Vent Mode Prvc Mechanical Rate 18 FiO2 60.0 Tidal Volume 500 PEEP 5 Sodium Potassium Chloride Carbon Dioxide Anion Gap BUN Creatinine Est GFR ( Amer) Est GFR (Non-Af Amer) POC Glucose (mg/dL) 129 H 154 H Random Glucose Calcium Phosphorus Magnesium Total Bilirubin AST ALT Alkaline Phosphatase Total Protein Albumin Globulin Albumin/Globulin Ratio Vancomycin Trough 12/24/18 12/24/18 12/24/18 05:46 06:20 06:25 WBC 12.0 H RBC 3.22 L Hgb 8.8 L Hct 27.7 L MCV 86.1 MCH 27.3 MCHC 31.7 L RDW 19.6 H Plt Count 248 MPV 7.6 Neut % (Auto) 92.5 H Lymph % (Auto) 4.2 L Kerr % (Auto) 3.2 Eos % (Auto) 0.0 Baso % (Auto) 0.1 Neut # (Auto) 11.1 H Lymph # (Auto) 0.5 L Kerr # (Auto) 0.4 Eos # (Auto) 0.0 Baso # (Auto) 0.0 Neutrophils % (Manual) 89 H Band Neutrophils % 6 H Lymphocytes % (Manual) 3 L Monocytes % (Manual) 2 Platelet Estimate Normal Hypochromasia (manual) Slight Poikilocytosis (manual Slight Anisocytosis (manual) Slight PT INR APTT Puncture Site pCO2 pO2 HCO3 ABG pH ABG Total CO2 ABG O2 Saturation ABG Base Excess ABG Hemoglobin ABG Carboxyhemoglobin POC ABG HHb (Measured) ABG Methemoglobin Naif Test A-a O2 Difference Respiratory Index Hgb O2 Saturation Vent Mode Mechanical Rate FiO2 Tidal Volume PEEP Sodium 134 Potassium 3.3 L Chloride 105 Carbon Dioxide 25 Anion Gap 7 L BUN 32 H Creatinine 1.4 Est GFR ( Amer) 59 Est GFR (Non-Af Amer) 48 POC Glucose (mg/dL) 112 H Random Glucose 98 Calcium 7.9 L Phosphorus 3.0 Magnesium 1.9 Total Bilirubin 0.3 AST 94 H ALT 35 Alkaline Phosphatase 77 Total Protein 4.9 L Albumin 2.1 L Globulin 2.8 Albumin/Globulin Ratio 0.7 L Vancomycin Trough 12/24/18 12/24/18 12/24/18 09:51 11:44 12:01 WBC RBC Hgb Hct MCV MCH MCHC RDW Plt Count MPV Neut % (Auto) Lymph % (Auto) Kerr % (Auto) Eos % (Auto) Baso % (Auto) Neut # (Auto) Lymph # (Auto) Kerr # (Auto) Eos # (Auto) Baso # (Auto) Neutrophils % (Manual) Band Neutrophils % Lymphocytes % (Manual) Monocytes % (Manual) Platelet Estimate Hypochromasia (manual) Poikilocytosis (manual Anisocytosis (manual) PT 11.3 INR 1.0 APTT 35 H Puncture Site pCO2 pO2 HCO3 ABG pH ABG Total CO2 ABG O2 Saturation ABG Base Excess ABG Hemoglobin ABG Carboxyhemoglobin POC ABG HHb (Measured) ABG Methemoglobin Naif Test A-a O2 Difference Respiratory Index Hgb O2 Saturation Vent Mode Mechanical Rate FiO2 Tidal Volume PEEP Sodium Potassium Chloride Carbon Dioxide Anion Gap BUN Creatinine Est GFR ( Amer) Est GFR (Non-Af Amer) POC Glucose (mg/dL) 86 Random Glucose Calcium Phosphorus Magnesium Total Bilirubin AST ALT Alkaline Phosphatase Total Protein Albumin Globulin Albumin/Globulin Ratio Vancomycin Trough 19.6 H Radiology Impressions: Radiology Impressions Chest X-Ray 12/24/18 06:00 IMPRESSION: Persistent left lower lobe pneumonia. Stable position of support line and tubes. Background of COPD. Fingerstick Blood Sugar Results: 112 Review of Systems - Review of Systems Systems not reviewed;Unavailable: Intubated Assessment/Plan - Assessment and Plan (Free Text) Assessment: 83 y o male PMhx severe aortic stenosis (hx family refusing further w/u on prior admission as per chart review), paroxysmal A-fib, HTN, and dementia, admitted for sepsis 2/2 to HCAP. Reason for ICU consult was for hypoxia. CONCEPTOR was called on 12/22/17 on medical floor for hypoxia and O2 sat of 60% on NC. Pt was placed on non-rebreather and pulse ox was low 80s. Due to hx of severe (with no surgical intervention), pt was intubated by Anesthesia. Pt's son was called at that time to determine code status since pt is demented and at bedside is also demented, was instructed to come to hospital for further discussion. Further ROS was unobtainable at that time due to pt status of respiratory distress. Pt was transferred to ICU and had R internal jugular triple lumen catheter placed. Pt was also hypertensive with BP in ICU 159/101 and tachycardic into the 120s, hypotensive today. Currently intubated. Acute respiratory failure likely 2/2 to aspiration PNA. Plan: Neuro: -Intubated -Hx dementia -C/w Aricept, Ativan prn for agitation -Hx CVA, c/w Crestor Cardio: -Tachycardic and hypertensive on initial ICU presentation; today tachycardia persistent and pt hypotensive -Hx aortic stenosis -Cardiology (Dr. Sanchez) consulted, recs appreciated -Hx A-fib -C/w Eliquis, Verapamil, Diltiazem -Central line placed for poor venous access on 12/22/18 Pulm: -Respiratory distress, intubated and sedated during CONCEPTOR -Hypoxic on initial ICU presentation; currently on ventilator, sedation d/c'd -Recent ABG 7.48/29/80/23.8 -Currently being treated for Sepsis 2/2 to HCAP -C/w Cefepime and Vanco -ID consulted (Dr. Pastrana), recs appreciated -C/w vent settings -Gen Surgery consulted (Dr. Jamil) for tracheostomy placement, recs appreciated GI: -NPO -NG/OG tube placement unsuccessful due to pt anatomy -GI (Dr. Franklin) consulted for Peg tube placement, recs appreciated -Hx ?partial gastrectomy in past, unknown year as per pt's son -Protonix ID: -Urine and blood cxs NGTD -Rapid flu neg -Cefepime/Vanco -ID on consult -Leukocytosis trending down, cont to trend Heme: -Normocytic anemia -Iron <10, TIBC 237, % sat 4.21, Folate >20, B12 526, Ferritin 55.8 -Postpone iron supplementation 2/2 iron promoting microbial growth during current infection -Stool Occult Blood negative -C/w Eliquis, Hgb 8.8/27.7 today Renal: -Hx BPH C/w Proscar -Trend I's/O's PPX: -Eliquis, SCD -Palliative care consulted, recs appreciated Pt seen, examined with, and plan discussed with Dr. Durham, attending physician. Huey Long DO PGY-1, Secondary Set Up Man Pager #[phone] <Yovani Durham - Last Filed: 12/24/18 16:07> CCU Objective - Vital Signs / Intake & Output Vital Signs (Last 4 hours): Vital Signs Pulse Resp BP Pulse Ox 12/24/18 14:21 80 16 73/55 L 100 12/24/18 14:00 98 H 20 100 12/24/18 13:20 90 20 79/52 L 100 12/24/18 13:00 92 H 20 100 12/24/18 12:20 84 18 87/54 L 100 Intake and Output (Last 8hrs): Intake & Output 12/24/18 12/24/18 12/24/18 06:59 14:59 22:59 Intake Total 879.8 786 Output Total 300 Balance 579.8 786 Weight 93 lb Intake: IV 34.0 Intake, IV Amount 845.8 786 rt ij distal port 200 136 rt ij middle port 20.8 0 rt. IJ TLC 625 650 Output: Urine 300 Urine, Voided 300 - Medications Active Medications: Active Medications Generic Name Dose Route Start Last Admin Trade Name Freq PRN Reason Stop Dose Admin Acetaminophen 650 mg 12/16/18 07:35 12/21/18 13:51 Tylenol 325mg Tab PO 650 mg Q6 PRN Administration Fever >100.4 F Albuterol/Ipratropium 3 ml 12/16/18 08:00 12/24/18 11:16 Duoneb 3 Mg/0.5 Mg (3 Ml) Ud INH 3 ml RQ4 VINCENT Administration Amiodarone HCl 200 mg 12/24/18 18:00 Cordarone PO DAILY VINCENT Apixaban 2.5 mg 12/16/18 18:00 12/24/18 10:01 Eliquis PO Not Given BID VINCENT Diltiazem HCl 30 mg 12/21/18 14:45 12/24/18 10:01 Cardizem PO Not Given TID VINCENT Donepezil HCl 5 mg 12/16/18 22:00 12/23/18 21:14 Aricept PO Not Given HS VINCENT Finasteride 5 mg 12/16/18 12:00 12/24/18 10:02 Proscar PO Not Given DAILY VINCENT Guaifenesin 100 mg 12/23/18 18:00 12/24/18 10:02 Robitussin PO Not Given BID VINCENT Cefepime HCl 2 gm/ Sodium 100 mls @ 100 mls/hr 12/17/18 14:30 12/24/18 02:31 Chloride IVPB 100 mls/hr Q12H VINCENT Administration Protocol Vancomycin HCl 1,000 mg/ 250 mls @ 166.6 mls/hr 12/21/18 10:00 12/23/18 09:48 Sodium Chloride IVPB 166.6 mls/hr DAILY VINCENT Administration Protocol Dextrose/Sodium Chloride 1,000 mls @ 75 mls/hr 12/23/18 01:00 12/24/18 10:01 Dextrose 5%/0.45% Ns 1000 Ml IV Not Given .[id number] [facility] Dexmedetomidine HCl 200 mcg/ 50 mls @ 2.09 mls/hr 12/23/18 21:00 12/24/18 06:39 Sodium Chloride IV 0.2 mcg/kg/hr TITR PRN 2.1 mls/hr Agitation Titration Protocol 0.2 MCG/KG/HR Latanoprost 0.05 ml 12/16/18 22:00 12/23/18 21:13 Xalatan Opht OU 0.05 ml HS VINCENT Administration Lorazepam 1 mg 12/18/18 18:38 12/23/18 20:31 Ativan IVP 1 mg Q8H PRN Administration Agitation Pantoprazole Sodium 40 mg 12/23/18 12:45 12/24/18 09:58 Protonix Inj IVP 40 mg DAILY VINCENT Administration Rosuvastatin Calcium 10 mg 12/16/18 22:00 12/23/18 21:14 Crestor PO Not Given HS VINCENT Saccharomyces Boulardii 250 mg 12/16/18 12:00 12/24/18 10:02 Florastor PO Not Given BID VINCENT Verapamil HCl 120 mg 12/16/18 12:00 12/24/18 10:01 Calan Sr Tab PO Not Given DAILY VINCENT - Patient Studies Lab Studies: Microbiology Studies 12/22/18 13:56 Blood Culture - Preliminary Blood NO GROWTH AFTER 24 HOURS 12/22/18 13:56 Blood Culture - Preliminary Blood NO GROWTH AFTER 24 HOURS 12/22/18 17:00 MRSA Culture (Admit) - Final Naris MRSA NOT DETECTED Lab Studies 12/24/18 12/24/18 12/24/18 Range/Units 12:01 11:44 09:51 WBC (4.8-10.8) K/uL RBC (4.40-5.90) Mil/uL Hgb (12.0-18.0) g/dL Hct (35.0-51.0) % MCV (80.0-94.0) fL MCH (27.0-31.0) pg MCHC (33.0-37.0) g/dL RDW (11.5-14.5) % Plt Count (130-400) K/uL MPV (7.2-11.7) fL Neut % (Auto) (50.0-75.0) % Lymph % (Auto) (20.0-40.0) % Kerr % (Auto) (0.0-10.0) % Eos % (Auto) (0.0-4.0) % Baso % (Auto) (0.0-2.0) % Neut # (Auto) (1.8-7.0) K/uL Lymph # (Auto) (1.0-4.3) K/uL Kerr # (Auto) (0.0-0.8) K/uL Eos # (Auto) (0.0-0.7) K/uL Baso # (Auto) (0.0-0.2) K/uL Neutrophils % (Manual) (50-75) % Band Neutrophils % (0-2) % Lymphocytes % (Manual) (20-40) % Monocytes % (Manual) (0-10) % Platelet Estimate (NORMAL) Hypochromasia (manual) Poikilocytosis (manual Anisocytosis (manual) PT 11.3 (9.7-12.2) SECONDS INR 1.0 APTT 35 H (21-34) SECONDS Puncture Site pCO2 (35-45) mm/Hg pO2 (80-100) mm/Hg HCO3 (21-28) mmol/L ABG pH (7.35-7.45) ABG Total CO2 (22-28) mmol/L ABG O2 Saturation (95-98) % ABG Base Excess (-2.0-3.0) mmol/L ABG Hemoglobin (11.7-17.4) g/dL ABG Carboxyhemoglobin (0.5-1.5) % POC ABG HHb (Measured) (0.0-5.0) % ABG Methemoglobin (0.0-3.0) % Naif Test A-a O2 Difference mm/Hg Respiratory Index Hgb O2 Saturation (95.0-98.0) % Vent Mode Mechanical Rate FiO2 % Tidal Volume PEEP Sodium (132-148) mmol/L Potassium (3.6-5.2) mmol/L Chloride (98-107) mmol/L Carbon Dioxide (22-30) mmol/L Anion Gap (10-20) BUN (9-20) mg/dL Creatinine (0.8-1.5) mg/dL Est GFR ( Amer) Est GFR (Non-Af Amer) POC Glucose (mg/dL) 86 (65-110) mg/dL Random Glucose (75-110) mg/dL Calcium (8.6-10.4) mg/dl Phosphorus (2.5-4.5) mg/dL Magnesium (1.6-2.3) mg/dL Total Bilirubin (0.2-1.3) mg/dL AST (17-59) U/L ALT (21-72) U/L Alkaline Phosphatase (38-126) U/L Total Protein (6.3-8.3) g/dL Albumin (3.5-5.0) g/dL Globulin (2.2-3.9) gm/dL Albumin/Globulin Ratio (1.0-2.1) Vancomycin Trough 19.6 H (5.0-10.0) ug/mL 12/24/18 12/24/18 12/24/18 Range/Units 06:25 06:20 05:46 WBC 12.0 H (4.8-10.8) K/uL RBC 3.22 L (4.40-5.90) Mil/uL Hgb 8.8 L (12.0-18.0) g/dL Hct 27.7 L (35.0-51.0) % MCV 86.1 (80.0-94.0) fL MCH 27.3 (27.0-31.0) pg MCHC 31.7 L (33.0-37.0) g/dL RDW 19.6 H (11.5-14.5) % Plt Count 248 (130-400) K/uL MPV 7.6 (7.2-11.7) fL Neut % (Auto) 92.5 H (50.0-75.0) % Lymph % (Auto) 4.2 L (20.0-40.0) % Kerr % (Auto) 3.2 (0.0-10.0) % Eos % (Auto) 0.0 (0.0-4.0) % Baso % (Auto) 0.1 (0.0-2.0) % Neut # (Auto) 11.1 H (1.8-7.0) K/uL Lymph # (Auto) 0.5 L (1.0-4.3) K/uL Kerr # (Auto) 0.4 (0.0-0.8) K/uL Eos # (Auto) 0.0 (0.0-0.7) K/uL Baso # (Auto) 0.0 (0.0-0.2) K/uL Neutrophils % (Manual) 89 H (50-75) % Band Neutrophils % 6 H (0-2) % Lymphocytes % (Manual) 3 L (20-40) % Monocytes % (Manual) 2 (0-10) % Platelet Estimate Normal (NORMAL) Hypochromasia (manual) Slight Poikilocytosis (manual Slight Anisocytosis (manual) Slight PT (9.7-12.2) SECONDS INR APTT (21-34) SECONDS Puncture Site pCO2 (35-45) mm/Hg pO2 (80-100) mm/Hg HCO3 (21-28) mmol/L ABG pH (7.35-7.45) ABG Total CO2 (22-28) mmol/L ABG O2 Saturation (95-98) % ABG Base Excess (-2.0-3.0) mmol/L ABG Hemoglobin (11.7-17.4) g/dL ABG Carboxyhemoglobin (0.5-1.5) % POC ABG HHb (Measured) (0.0-5.0) % ABG Methemoglobin (0.0-3.0) % Naif Test A-a O2 Difference mm/Hg Respiratory Index Hgb O2 Saturation (95.0-98.0) % Vent Mode Mechanical Rate FiO2 % Tidal Volume PEEP Sodium 134 (132-148) mmol/L Potassium 3.3 L (3.6-5.2) mmol/L Chloride 105 (98-107) mmol/L Carbon Dioxide 25 (22-30) mmol/L Anion Gap 7 L (10-20) BUN 32 H (9-20) mg/dL Creatinine 1.4 (0.8-1.5) mg/dL Est GFR ( Amer) 59 Est GFR (Non-Af Amer) 48 POC Glucose (mg/dL) 112 H (65-110) mg/dL Random Glucose 98 (75-110) mg/dL Calcium 7.9 L (8.6-10.4) mg/dl Phosphorus 3.0 (2.5-4.5) mg/dL Magnesium 1.9 (1.6-2.3) mg/dL Total Bilirubin 0.3 (0.2-1.3) mg/dL AST 94 H (17-59) U/L ALT 35 (21-72) U/L Alkaline Phosphatase 77 (38-126) U/L Total Protein 4.9 L (6.3-8.3) g/dL Albumin 2.1 L (3.5-5.0) g/dL Globulin 2.8 (2.2-3.9) gm/dL Albumin/Globulin Ratio 0.7 L (1.0-2.1) Vancomycin Trough (5.0-10.0) ug/mL 12/24/18 12/23/18 12/23/18 Range/Units 05:25 23:20 17:40 WBC (4.8-10.8) K/uL RBC (4.40-5.90) Mil/uL Hgb (12.0-18.0) g/dL Hct (35.0-51.0) % MCV (80.0-94.0) fL MCH (27.0-31.0) pg MCHC (33.0-37.0) g/dL RDW (11.5-14.5) % Plt Count (130-400) K/uL MPV (7.2-11.7) fL Neut % (Auto) (50.0-75.0) % Lymph % (Auto) (20.0-40.0) % Kerr % (Auto) (0.0-10.0) % Eos % (Auto) (0.0-4.0) % Baso % (Auto) (0.0-2.0) % Neut # (Auto) (1.8-7.0) K/uL Lymph # (Auto) (1.0-4.3) K/uL Kerr # (Auto) (0.0-0.8) K/uL Eos # (Auto) (0.0-0.7) K/uL Baso # (Auto) (0.0-0.2) K/uL Neutrophils % (Manual) (50-75) % Band Neutrophils % (0-2) % Lymphocytes % (Manual) (20-40) % Monocytes % (Manual) (0-10) % Platelet Estimate (NORMAL) Hypochromasia (manual) Poikilocytosis (manual Anisocytosis (manual) PT (9.7-12.2) SECONDS INR APTT (21-34) SECONDS Puncture Site Rb pCO2 29 L (35-45) mm/Hg pO2 80 (80-100) mm/Hg HCO3 23.8 (21-28) mmol/L ABG pH 7.48 H (7.35-7.45) ABG Total CO2 22.5 (22-28) mmol/L ABG O2 Saturation 96.9 (95-98) % ABG Base Excess -1.4 (-2.0-3.0) mmol/L ABG Hemoglobin 8.9 L (11.7-17.4) g/dL ABG Carboxyhemoglobin 0.7 (0.5-1.5) % POC ABG HHb (Measured) 3.1 (0.0-5.0) % ABG Methemoglobin 0.4 (0.0-3.0) % Naif Test Na A-a O2 Difference 312.0 mm/Hg Respiratory Index 3.9 Hgb O2 Saturation 95.8 (95.0-98.0) % Vent Mode Prvc Mechanical Rate 18 FiO2 60.0 % Tidal Volume 500 PEEP 5 Sodium (132-148) mmol/L Potassium (3.6-5.2) mmol/L Chloride (98-107) mmol/L Carbon Dioxide (22-30) mmol/L Anion Gap (10-20) BUN (9-20) mg/dL Creatinine (0.8-1.5) mg/dL Est GFR ( Amer) Est GFR (Non-Af Amer) POC Glucose (mg/dL) 154 H 129 H (65-110) mg/dL Random Glucose (75-110) mg/dL Calcium (8.6-10.4) mg/dl Phosphorus (2.5-4.5) mg/dL Magnesium (1.6-2.3) mg/dL Total Bilirubin (0.2-1.3) mg/dL AST (17-59) U/L ALT (21-72) U/L Alkaline Phosphatase (38-126) U/L Total Protein (6.3-8.3) g/dL Albumin (3.5-5.0) g/dL Globulin (2.2-3.9) gm/dL Albumin/Globulin Ratio (1.0-2.1) Vancomycin Trough (5.0-10.0) ug/mL Laboratory Results - last 24 hr 12/23/18 12/23/18 12/24/18 17:40 23:20 05:25 WBC RBC Hgb Hct MCV MCH MCHC RDW Plt Count MPV Neut % (Auto) Lymph % (Auto) Kerr % (Auto) Eos % (Auto) Baso % (Auto) Neut # (Auto) Lymph # (Auto) Kerr # (Auto) Eos # (Auto) Baso # (Auto) Neutrophils % (Manual) Band Neutrophils % Lymphocytes % (Manual) Monocytes % (Manual) Platelet Estimate Hypochromasia (manual) Poikilocytosis (manual Anisocytosis (manual) PT INR APTT Puncture Site Rb pCO2 29 L pO2 80 HCO3 23.8 ABG pH 7.48 H ABG Total CO2 22.5 ABG O2 Saturation 96.9 ABG Base Excess -1.4 ABG Hemoglobin 8.9 L ABG Carboxyhemoglobin 0.7 POC ABG HHb (Measured) 3.1 ABG Methemoglobin 0.4 Naif Test Na A-a O2 Difference 312.0 Respiratory Index 3.9 Hgb O2 Saturation 95.8 Vent Mode Prvc Mechanical Rate 18 FiO2 60.0 Tidal Volume 500 PEEP 5 Sodium Potassium Chloride Carbon Dioxide Anion Gap BUN Creatinine Est GFR ( Amer) Est GFR (Non-Af Amer) POC Glucose (mg/dL) 129 H 154 H Random Glucose Calcium Phosphorus Magnesium Total Bilirubin AST ALT Alkaline Phosphatase Total Protein Albumin Globulin Albumin/Globulin Ratio Vancomycin Trough 12/24/18 12/24/18 12/24/18 05:46 06:20 06:25 WBC 12.0 H RBC 3.22 L Hgb 8.8 L Hct 27.7 L MCV 86.1 MCH 27.3 MCHC 31.7 L RDW 19.6 H Plt Count 248 MPV 7.6 Neut % (Auto) 92.5 H Lymph % (Auto) 4.2 L Kerr % (Auto) 3.2 Eos % (Auto) 0.0 Baso % (Auto) 0.1 Neut # (Auto) 11.1 H Lymph # (Auto) 0.5 L Kerr # (Auto) 0.4 Eos # (Auto) 0.0 Baso # (Auto) 0.0 Neutrophils % (Manual) 89 H Band Neutrophils % 6 H Lymphocytes % (Manual) 3 L Monocytes % (Manual) 2 Platelet Estimate Normal Hypochromasia (manual) Slight Poikilocytosis (manual Slight Anisocytosis (manual) Slight PT INR APTT Puncture Site pCO2 pO2 HCO3 ABG pH ABG Total CO2 ABG O2 Saturation ABG Base Excess ABG Hemoglobin ABG Carboxyhemoglobin POC ABG HHb (Measured) ABG Methemoglobin Naif Test A-a O2 Difference Respiratory Index Hgb O2 Saturation Vent Mode Mechanical Rate FiO2 Tidal Volume PEEP Sodium 134 Potassium 3.3 L Chloride 105 Carbon Dioxide 25 Anion Gap 7 L BUN 32 H Creatinine 1.4 Est GFR ( Amer) 59 Est GFR (Non-Af Amer) 48 POC Glucose (mg/dL) 112 H Random Glucose 98 Calcium 7.9 L Phosphorus 3.0 Magnesium 1.9 Total Bilirubin 0.3 AST 94 H ALT 35 Alkaline Phosphatase 77 Total Protein 4.9 L Albumin 2.1 L Globulin 2.8 Albumin/Globulin Ratio 0.7 L Vancomycin Trough 12/24/18 12/24/18 12/24/18 09:51 11:44 12:01 WBC RBC Hgb Hct MCV MCH MCHC RDW Plt Count MPV Neut % (Auto) Lymph % (Auto) Kerr % (Auto) Eos % (Auto) Baso % (Auto) Neut # (Auto) Lymph # (Auto) Kerr # (Auto) Eos # (Auto) Baso # (Auto) Neutrophils % (Manual) Band Neutrophils % Lymphocytes % (Manual) Monocytes % (Manual) Platelet Estimate Hypochromasia (manual) Poikilocytosis (manual Anisocytosis (manual) PT 11.3 INR 1.0 APTT 35 H Puncture Site pCO2 pO2 HCO3 ABG pH ABG Total CO2 ABG O2 Saturation ABG Base Excess ABG Hemoglobin ABG Carboxyhemoglobin POC ABG HHb (Measured) ABG Methemoglobin Naif Test A-a O2 Difference Respiratory Index Hgb O2 Saturation Vent Mode Mechanical Rate FiO2 Tidal Volume PEEP Sodium Potassium Chloride Carbon Dioxide Anion Gap BUN Creatinine Est GFR ( Amer) Est GFR (Non-Af Amer) POC Glucose (mg/dL) 86 Random Glucose Calcium Phosphorus Magnesium Total Bilirubin AST ALT Alkaline Phosphatase Total Protein Albumin Globulin Albumin/Globulin Ratio Vancomycin Trough 19.6 H Radiology Impressions: Radiology Impressions Chest X-Ray 12/24/18 06:00 IMPRESSION: Persistent left lower lobe pneumonia. Stable position of support line and tubes. Background of COPD. Attending/Attestation - Attestation I have personally seen and examined this patient.: Yes I have fully participated in the care of the patient.: Yes I have reviewed all pertinent clinical information: Yes Notes (Text): 12/24/18 16:03 I have seen and examined the patient. Medical records, lab studies, and imaging were reviewed by me and a management plan was formulated on multidisciplinary rounds with resident Dr. Long. I agree with their documented assessment and plan. Patient has copious secretions, is severely deconditioned severe dementia, will most likely need trach and peg. Patient's son is undecided on making any decisions despite adequate explanations from multiple physicians. Cannot place an NGT/OGT secondary to anatomic issues. Critical Care Time 35 minutes. Multi-disciplinary rounds were performed with house staff, nursing, speech therapy, respiratory therapy, pharmacy and nutrition with integrated input from the primary team/attending and other consulting services. The documented time is cumulative and includes review of patient data/exams/labs/chart review and examination of the patient on rounds and throughout the day; time is exclusive of any procedures or teaching time.
--- NOTE | 2018-12-24 17:39 | CP.PCM.PN ---
Subjective - Date & Time of Evaluation Date of Evaluation: 12/24/18 Time of Evaluation: 17:25 - Subjective Subjective: events noted. patient remains intubated. may need trach/PEG. son is undecided. Objective - Vital Signs/Intake and Output Vital Signs (last 24 hours): Temp Pulse Resp BP Pulse Ox 100.2 F H 80 16 73/55 L 100 12/24/18 12:00 12/24/18 14:21 12/24/18 14:21 12/24/18 14:21 12/24/18 14:21 Intake and Output: 12/24/18 12/24/18 06:59 18:59 Intake Total 1247.9 786 Output Total 300 Balance 947.9 786 - Medications Medications: Current Medications Acetaminophen (Tylenol 325mg Tab) 650 mg PO Q6 PRN PRN Reason: Fever >100.4 F Last Admin: 12/21/18 13:51 Dose: 650 mg Albuterol/Ipratropium (Duoneb 3 Mg/0.5 Mg (3 Ml) Ud) 3 ml INH RQ4 [facility] Last Admin: 12/24/18 15:50 Dose: 3 ml Amiodarone HCl (Cordarone) 200 mg PO DAILY [facility] Apixaban (Eliquis) 2.5 mg PO BID [facility] Last Admin: 12/24/18 10:01 Dose: Not Given Diltiazem HCl (Cardizem) 30 mg PO TID [facility] Last Admin: 12/24/18 10:01 Dose: Not Given Donepezil HCl (Aricept) 5 mg PO HS [facility] Last Admin: 12/23/18 21:14 Dose: Not Given Finasteride (Proscar) 5 mg PO DAILY [facility] Last Admin: 12/24/18 10:02 Dose: Not Given Guaifenesin (Robitussin) 100 mg PO BID [facility] Last Admin: 12/24/18 10:02 Dose: Not Given Cefepime HCl 2 gm/ Sodium (Chloride) 100 mls @ 100 mls/hr IVPB Q12H [facility]; Protocol Last Admin: 12/24/18 02:31 Dose: 100 mls/hr Vancomycin HCl 1,000 mg/ (Sodium Chloride) 250 mls @ 166.6 mls/hr IVPB DAILY [facility] ; Protocol Last Admin: 12/23/18 09:48 Dose: 166.6 mls/hr Dextrose/Sodium Chloride (Dextrose 5%/0.45% Ns 1000 Ml) 1,000 mls @ 75 mls/hr IV .[id number] [facility] Last Admin: 12/24/18 10:01 Dose: Not Given Dexmedetomidine HCl 200 mcg/ (Sodium Chloride) 50 mls @ 2.09 mls/hr IV TITR PRN; Protocol PRN Reason: Agitation Last Titration: 12/24/18 06:39 Dose: 0.2 mcg/kg/hr, 2.1 mls/hr Latanoprost (Xalatan Opht) 0.05 ml OU HS [facility] Last Admin: 12/23/18 21:13 Dose: 0.05 ml Lorazepam (Ativan) 1 mg IVP Q8H PRN PRN Reason: Agitation Last Admin: 12/23/18 20:31 Dose: 1 mg Pantoprazole Sodium (Protonix Inj) 40 mg IVP DAILY [facility] Last Admin: 12/24/18 09:58 Dose: 40 mg Rosuvastatin Calcium (Crestor) 10 mg PO HS [facility] Last Admin: 12/23/18 21:14 Dose: Not Given Saccharomyces Boulardii (Florastor) 250 mg PO BID [facility] Last Admin: 12/24/18 10:02 Dose: Not Given Verapamil HCl (Calan Sr Tab) 120 mg PO DAILY [facility] Last Admin: 12/24/18 10:01 Dose: Not Given - Labs Labs: 12/24/18 06:25 12/24/18 06:20 PT 11.3 SECONDS (9.7-12.2) 12/24/18 11:44 INR 1.0 12/24/18 11:44 APTT 35 SECONDS (21-34) H 12/24/18 11:44 - Constitutional Appears: Cachectic, Chronically Ill - Eye Exam Eye Exam: Normal appearance - ENT Exam ENT Exam: Mucous Membranes Moist - Neck Exam Neck Exam: Normal Inspection. absent: Lymphadenopathy, Tenderness, Thyromegaly - Respiratory Exam Respiratory Exam: Decreased Breath Sounds - Cardiovascular Exam Cardiovascular Exam: Irregular Rhythm, Murmur Additional comments: crescendo systolic murmur - GI/Abdominal Exam GI & Abdominal Exam: Normal Bowel Sounds - Rectal Exam Rectal Exam: Deferred - Extremities Exam Extremities Exam: absent: Pedal Edema - Back Exam Back Exam: NORMAL INSPECTION - Neurological Exam Neurological Exam: Awake - Psychiatric Exam Psychiatric exam: Normal Affect - Skin Skin Exam: Normal Color Assessment and Plan (1) Aortic stenosis Assessment & Plan: severe. family has refused previous workup and possible intervention. Patient is a high risk patient for trach and PEG due to and multiple comorbidities. However these likley are necessary procedures. he is as optimized as possible given severe . can hold Eliquis for 3 days prior to surgery. No need to bridge with heparin. keep MAP greater than 70mm Hg Status: Acute (2) Paroxysmal atrial fibrillation Assessment & Plan: can hold Eliquis for surgery Status: Acute
--- NOTE | 2018-12-24 18:05 | CP.PCM.PN ---
Subjective - Date & Time of Evaluation Date of Evaluation: 12/24/18 Time of Evaluation: 09:00 - Subjective Subjective: intubated responsive afebrile CXR - LLL pneumonia / severe COPD no new poesitive cultures Objective - Vital Signs/Intake and Output Vital Signs (last 24 hours): Temp Pulse Resp BP Pulse Ox 100.2 F H 80 16 73/55 L 100 12/24/18 12:00 12/24/18 14:21 12/24/18 14:21 12/24/18 14:21 12/24/18 14:21 Intake and Output: 12/24/18 12/24/18 06:59 18:59 Intake Total 1247.9 786 Output Total 300 Balance 947.9 786 - Medications Medications: Current Medications Acetaminophen (Tylenol 325mg Tab) 650 mg PO Q6 PRN PRN Reason: Fever >100.4 F Last Admin: 12/21/18 13:51 Dose: 650 mg Albuterol/Ipratropium (Duoneb 3 Mg/0.5 Mg (3 Ml) Ud) 3 ml INH RQ4 [facility] Last Admin: 12/24/18 15:50 Dose: 3 ml Amiodarone HCl (Cordarone) 200 mg PO DAILY [facility] Apixaban (Eliquis) 2.5 mg PO BID [facility] Last Admin: 12/24/18 10:01 Dose: Not Given Diltiazem HCl (Cardizem) 30 mg PO TID [facility] Last Admin: 12/24/18 10:01 Dose: Not Given Donepezil HCl (Aricept) 5 mg PO HS [facility] Last Admin: 12/23/18 21:14 Dose: Not Given Finasteride (Proscar) 5 mg PO DAILY [facility] Last Admin: 12/24/18 10:02 Dose: Not Given Guaifenesin (Robitussin) 100 mg PO BID [facility] Last Admin: 12/24/18 10:02 Dose: Not Given Cefepime HCl 2 gm/ Sodium (Chloride) 100 mls @ 100 mls/hr IVPB Q12H [facility]; Protocol Last Admin: 12/24/18 02:31 Dose: 100 mls/hr Vancomycin HCl 1,000 mg/ (Sodium Chloride) 250 mls @ 166.6 mls/hr IVPB DAILY [facility]; Protocol Last Admin: 12/23/18 09:48 Dose: 166.6 mls/hr Dextrose/Sodium Chloride (Dextrose 5%/0.45% Ns 1000 Ml) 1,000 mls @ 75 mls/hr IV .[id number] [facility] Last Admin: 12/24/18 10:01 Dose: Not Given Dexmedetomidine HCl 200 mcg/ (Sodium Chloride) 50 mls @ 2.09 mls/hr IV TITR PRN; Protocol PRN Reason: Agitation Last Titration: 12/24/18 06:39 Dose: 0.2 mcg/kg/hr, 2.1 mls/hr Latanoprost (Xalatan Opht) 0.05 ml OU HS [facility] Last Admin: 12/23/18 21:13 Dose: 0.05 ml Lorazepam (Ativan) 1 mg IVP Q8H PRN PRN Reason: Agitation Last Admin: 12/23/18 20:31 Dose: 1 mg Pantoprazole Sodium (Protonix Inj) 40 mg IVP DAILY [facility] Last Admin: 12/24/18 09:58 Dose: 40 mg Rosuvastatin Calcium (Crestor) 10 mg PO HS [facility] Last Admin: 12/23/18 21:14 Dose: Not Given Saccharomyces Boulardii (Florastor) 250 mg PO BID [facility] Last Admin: 12/24/18 10:02 Dose: Not Given Verapamil HCl (Calan Sr Tab) 120 mg PO DAILY [facility] Last Admin: 12/24/18 10:01 Dose: Not Given - Labs Labs: 12/24/18 06:25 12/24/18 06:20 PT 11.3 SECONDS (9.7-12.2) 12/24/18 11:44 INR 1.0 12/24/18 11:44 APTT 35 SECONDS (21-34) H 12/24/18 11:44 - Constitutional Appears: Confused, Cachectic, Chronically Ill - Head Exam Head Exam: NORMOCEPHALIC - Eye Exam Eye Exam: absent: Scleral icterus - ENT Exam ENT Exam: Mucous Membranes Dry - Neck Exam Neck Exam: absent: Lymphadenopathy - Respiratory Exam Respiratory Exam: Decreased Breath Sounds, Prolonged Expiratory Phase, Rhonchi - Cardiovascular Exam Cardiovascular Exam: REGULAR RHYTHM - GI/Abdominal Exam GI & Abdominal Exam: Distended, Soft. 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
[2018-12-24] MEDS: Latanoprost 2.5 ml Opht Soln OU SCH (21:40)
[2018-12-25] MEDS: Albuterol-Ipratrop 3 mg / 0.5 (3 ml) UD INH SCH ×5 (00:32→20:44)
[2018-12-25] MEDS: Cefepime 2 GM in Sodium Chloride 0.9% 100 ML IVPB SCH ×2 (02:26→14:16)
[2018-12-25 05:43] LABS: ARTERIAL BLOOD GAS HCO3 23.1 mmol/L (21-28); ARTERIAL BLOOD GAS HEMOGLOBIN 10.7 g/dL (11.7-17.4); ARTERIAL BLOOD GAS O2 SAT 97.6 % (95-98); ARTERIAL BLOOD GAS PCO2 31 mm/Hg (35-45); ARTERIAL BLOOD GAS PH 7.44 (7.35-7.45); ARTERIAL BLOOD GAS PO2 125 mm/Hg (80-100); ARTERIAL BLOOD GAS TCO2 22.1 mmol/L (22-28)
[2018-12-25] MEDS: Dextrose 5%/0.45% NS 1,000 ML IV SCH ×2 (05:50→19:16)
[2018-12-25 06:36] LABS: BASO % 0.2 % (0.0-2.0); HEMOGLOBIN 7.6 g/dL (12.0-18.0); LYMPH # 0.3 K/uL (1.0-4.3); LYMPH % 9.6 % (20.0-40.0); MEAN CELL VOLUME 87.4 fL (80.0-94.0); MEAN CORPUSCULAR HEMOGLOBIN 27.5 pg (27.0-31.0); MEAN CORPUSCULAR HGB CONC 31.5 g/dL (33.0-37.0); MEAN PLATELET VOLUME 7.9 fL (7.2-11.7); MONO # 0.3 K/uL (0.0-0.8); MONO % 8.5 % (0.0-10.0); NEUT # 2.7 K/uL (1.8-7.0); NEUT % 81.7 % (50.0-75.0); NRBC % 0.1 % (0.0-2.0); PLATELET COUNT 175 K/uL (130-400); RBC 2.77 Mil/uL (4.40-5.90); WHITE BLOOD COUNT 3.3 K/uL (4.8-10.8)
[2018-12-25 06:48] LABS: ALB/GLOB RATIO 0.7 (1.0-2.1); ALBUMIN 1.9 g/dL (3.5-5.0); ALT/SGPT 33 U/L (21-72); AST/SGOT 93 U/L (17-59); BLOOD UREA NITROGEN 25 mg/dL (9-20); CALCIUM 7.6 mg/dl (8.6-10.4); GFR NON-AFRICAN AMERICAN > 60
--- NOTE | 2018-12-25 08:25 | CP.PCM.PN ---
Subjective - Date & Time of Evaluation Date of Evaluation: 12/25/18 Time of Evaluation: 08:22 - Subjective Subjective: General Surgery - Dr. Jamil Pt S&E. BETZAIDA. PT remains intubated, awake this morning. No acute distress noted. Pt seen by GI Dr. Franklin yesterday and plan for EGD and possible PEG Thursday. Objective - Vital Signs/Intake and Output Vital Signs (last 24 hours): Temp Pulse Resp BP Pulse Ox 99.7 F H 63 18 96/54 L 99 12/25/18 04:00 12/25/18 08:00 12/25/18 08:00 12/25/18 07:20 12/25/18 06:00 Intake and Output: 12/25/18 12/25/18 06:59 18:59 Intake Total 925 75 Output Total 550 Balance 925 -475 - Medications Medications: Current Medications Acetaminophen (Tylenol 325mg Tab) 650 mg PO Q6 PRN PRN Reason: Fever >100.4 F Last Admin: 12/21/18 13:51 Dose: 650 mg Acetaminophen (Tylenol 650 Mg Supp) 650 mg [place] Q4 PRN PRN Reason: fEVER > 101 Last Admin: 12/25/18 01:30 Dose: 650 mg Albuterol/Ipratropium (Duoneb 3 Mg/0.5 Mg (3 Ml) Ud) 3 ml INH RQ4 [facility] Last Admin: 12/25/18 08:00 Dose: 3 ml Amiodarone HCl (Cordarone) 200 mg PO DAILY [facility] Last Admin: 12/24/18 18:58 Dose: Not Given Apixaban (Eliquis) 2.5 mg PO BID [facility] Last Admin: 12/24/18 10:01 Dose: Not Given Diltiazem HCl (Cardizem) 30 mg PO TID [facility] Last Admin: 12/24/18 18:58 Dose: Not Given Donepezil HCl (Aricept) 5 mg PO HS [facility] Last Admin: 12/24/18 21:37 Dose: Not Given Finasteride (Proscar) 5 mg PO DAILY [facility] Last Admin: 12/24/18 10:02 Dose: Not Given Guaifenesin (Robitussin) 100 mg PO BID [facility] Last Admin: 12/24/18 18:58 Dose: Not Given Cefepime HCl 2 gm/ Sodium (Chloride) 100 mls @ 100 mls/hr IVPB Q12H [facility]; Protocol Last Admin: 12/25/18 02:26 Dose: 100 mls/hr Vancomycin HCl 1,000 mg/ (Sodium Chloride) 250 mls @ 166.6 mls/hr IVPB DAILY [facility]; Protocol Last Admin: 12/24/18 11:57 Dose: 166.6 mls/hr Dextrose/Sodium Chloride (Dextrose 5%/0.45% Ns 1000 Ml) 1,000 mls @ 75 mls/hr IV .[id number] [facility] Last Admin: 12/25/18 05:50 Dose: 75 mls/hr Dexmedetomidine HCl 200 mcg/ (Sodium Chloride) 50 mls @ 2.09 mls/hr IV TITR PRN; Protocol PRN Reason: Agitation Last Titration: 12/24/18 06:39 Dose: 0.2 mcg/kg/hr, 2.1 mls/hr Latanoprost (Xalatan Opht) 0.05 ml OU HS [facility] Last Admin: 12/24/18 21:40 Dose: 0.05 ml Lorazepam (Ativan) 1 mg IVP Q8H PRN PRN Reason: Agitation Last Admin: 12/23/18 20:31 Dose: 1 mg Pantoprazole Sodium (Protonix Inj) 40 mg IVP DAILY [facility] Last Admin: 12/24/18 09:58 Dose: 40 mg Rosuvastatin Calcium (Crestor) 10 mg PO HS [facility] Last Admin: 12/24/18 21:37 Dose: Not Given Saccharomyces Boulardii (Florastor) 250 mg PO BID [facility] Last Admin: 12/24/18 18:58 Dose: Not Given Verapamil HCl (Calan Sr Tab) 120 mg PO DAILY [facility] Last Admin: 12/24/18 10:01 Dose: Not Given - Labs Labs: 12/25/18 06:28 12/25/18 06:27 PT 11.3 SECONDS (9.7-12.2) 12/24/18 11:44 INR 1.0 12/24/18 11:44 APTT 35 SECONDS (21-34) H 12/24/18 11:44 - Constitutional Appears: No Acute Distress - Head Exam Head Exam: ATRAUMATIC, NORMAL INSPECTION, NORMOCEPHALIC - Respiratory Exam Respiratory Exam: NORMAL BREATHING PATTERN - Cardiovascular Exam Cardiovascular Exam: REGULAR RHYTHM - GI/Abdominal Exam GI & Abdominal Exam: Soft Additional comments: midline scar - Neurological Exam Neurological Exam: Alert, Awake - Skin Skin Exam: Dry, Intact Assessment and Plan - Assessment and Plan (Free Text) Assessment: 83M w/ severe , paroxysmal A-fib, HTN, dementia, with respiratory failure unable to extubate Plan: -Plan for Tracheostomy Thursday -Possible open Gastrostomy if GI unable to complete PEG on Thursday -Will F/U GI -F/U Palliative care and discuss with Son LIAM Jamil
[2018-12-25 08:52] LABS: BANDS 2 % (0-2); LYMPHOCYTE 6 % (20-40); MONOCYTE 7 % (0-10); NEUTROPHIL 85 % (50-75); PLATELET ESTIMATE NORMAL (NORMAL); TOTAL CELLS COUNTED 100
[2018-12-25 08:53] LABS: ANISOCYTOSIS MODERATE; HYPOCHROMIC SLIGHT; POLYCHROMIC SLIGHT; TOXIC GRANULATION PRESENT
[2018-12-25 08:54] LABS: LARGE PLATELETS PRESENT
[2018-12-25 08:55] LABS: OVALOCYTES SLIGHT; POIKILOCYTOSIS SLIGHT
--- NOTE | 2018-12-25 09:07 | PN ---
DATE: 12/25/2018 LOCATION: ICU 7. SUBJECTIVE: This is an 83-year-old male, seen and examined in rounds without reported significant clinical changes, intubated and sedated. The entire chart is reviewed including, but not limited to the most recent lab and radiology study results, current and the previous medication list. Case discussed with all the staff at length. The patient was seen officially for GI consultation on 12/24/2018. Today's lab result is still pending. However, the patient still has abnormal ABGs and the most recently done chest x-ray, yesterday, report is seen indicative of persistent left lower lobe pneumonia with evidence of COPD. PHYSICAL EXAMINATION: GENERAL: An 83-year-old male. VITAL SIGNS: Low grade temperature of 99.7, pulse of 82, and blood pressure of 100/58. HEENT: Showed pale dry oral mucous membrane. Nonicteric sclerae. The patient is intubated with NG tube is in place. LUNGS: Scattered crepitation with decreased air entry at bases. HEART: Positive S1 and S2. ABDOMEN: Soft with mild generalized tenderness. No mass or organomegaly. No rebound tenderness or guarding. Bowel sounds are hypoactive. EXTREMITIES: With lower extremity edematous changes. No clubbing or cyanosis. NEUROLOGIC: No reported new neurological deficits, sensory or motor. IMPRESSION: 1. Cerebrovascular accident by recent history. 2. Pneumonia, respiratory failure, intubated to vent. 3. Dysphagia, malnutrition. 4. The patient is a candidate for percutaneous endoscopic gastrostomy insertion when he is more stable clinically. 5. Septicemia due to above. 6. Known history of hypertension, chronic obstructive pulmonary disease with reported organic brain syndrome. 7. Anemia, most likely secondary to above. 8. Electrolyte imbalance with hypokalemia, hypocalcemia. 9. Malnutrition with hypoalbuminemia, albumin is 2.1. SUGGESTIONS: 1. Continue current management. 2. Peripheral hyperalimentation. 3. The patient is scheduled for PEG insertion when he is more stable clinically. 4. Further recommendation to follow. Mu Suazo MD
[2018-12-25] MEDS: guaiFENesin 100 mg/5 ml Syrup UD PO SCH ×2 (09:56→19:16)
[2018-12-25] MEDS: Saccharomyces Boulardi 250 mg Cap PO SCH ×2 (09:56→19:16)
--- NOTE | 2018-12-25 11:50 | CP.CCUPN ---
CCU Subjective - Physician Review Subjective (Free Text): Events overnight reviewed, (+)thick ET tube secretions Critical Care Time Spent (in minutes): 38 CCU Objective - Vital Signs / Intake & Output Vital Signs (Last 4 hours): Vital Signs Pulse Resp BP 12/25/18 09:00 68 18 97/49 L 12/25/18 08:21 70 17 97/49 L 12/25/18 08:00 63 18 Intake and Output (Last 8hrs): Intake & Output 12/24/18 12/25/18 12/25/18 22:59 06:59 14:59 Intake Total 617 625 150 Output Total 400 550 Balance 217 625 -400 Weight 94 lb 0.13 oz Intake: Intake, IV Amount 617 625 150 rt ij distal port 17 rt. IJ TLC 600 625 150 Output: Urine 400 550 Urine, Voided 400 550 Other: # Bowel Movements 1 1 0 - Physical Exam Head: Positive for: Atraumatic, Normocephalic Pupils: Positive for: PERRL Mouth: Positive for: Moist Mucous Membranes, Drooling Respiratory/Chest: Positive for: Rales, Other (intubated on ventilator) Cardiovascular: Positive for: Murmurs (systolic murmur appreciated), Normal S1, S2, Tachycardic, Rub, Gallop Abdomen: Positive for: Normal Bowel Sounds. Negative for: Tenderness, Distention Lower Extremity: Positive for: Normal Inspection, NORMAL PULSES, Neurovascularly Intact, Capillary Refill < 2 s. Negative for: Edema Neurological: Positive for: Other (intubated) Skin: Positive for: Warm, Dry, Normal Color Psychiatric: Positive for: Other (intubated) - Medications Active Medications: Active Medications Generic Name Dose Route Start Last Admin Trade Name Freq PRN Reason Stop Dose Admin Acetaminophen 650 mg 12/16/18 07:35 12/21/18 13:51 Tylenol 325mg Tab PO 650 mg Q6 PRN Administration Fever >100.4 F Acetaminophen 650 mg 12/24/18 21:15 12/25/18 01:30 Tylenol 650 Mg Supp [place] 650 mg Q4 PRN Administration fEVER > 101 Albuterol/Ipratropium 3 ml 12/25/18 14:00 Duoneb 3 Mg/0.5 Mg (3 Ml) Ud INH RQ6 [facility] Amiodarone HCl 200 mg 12/24/18 18:00 12/25/18 09:55 Cordarone PO Not Given DAILY [facility] Apixaban 2.5 mg 12/16/18 18:00 12/24/18 10:01 Eliquis PO Not Given BID [facility] Diltiazem HCl 30 mg 12/21/18 14:45 12/25/18 09:55 Cardizem PO Not Given TID [facility] Donepezil HCl 5 mg 12/16/18 22:00 12/24/18 21:37 Aricept PO Not Given HS V[facility] Finasteride 5 mg 12/16/18 12:00 12/25/18 09:56 Proscar PO Not Given DAILY [facility] Guaifenesin 100 mg 12/23/18 18:00 12/25/18 09:56 Robitussin PO Not Given BID [facility] Cefepime HCl 2 gm/ Sodium 100 mls @ 100 mls/hr 12/17/18 14:30 12/25/18 02:26 Chloride IVPB 100 mls/hr Q12H [facility] Administration Protocol Vancomycin HCl 1,000 mg/ 250 mls @ 166.6 mls/hr 12/21/18 10:00 12/25/18 10:20 Sodium Chloride IVPB 166.6 mls/hr DAILY [facility] Administration Protocol Dextrose/Sodium Chloride 1,000 mls @ 75 mls/hr 12/23/18 01:00 12/25/18 05:50 Dextrose 5%/0.45% Ns 1000 Ml IV 75 mls/hr .[id number] [facility]ENT Administration Dexmedetomidine HCl 200 mcg/ 50 mls @ 2.09 mls/hr 12/23/18 21:00 12/24/18 06:39 Sodium Chloride IV 0.2 mcg/kg/hr TITR PRN 2.1 mls/hr Agitation Titration Protocol 0.2 MCG/KG/HR Potassium Chloride 20 meq in 100 mls @ 50 mls/hr 12/25/18 09:45 12/25/18 10:20 Potassium Chloride 20 Meq/100 Ml IVPB 12/25/18 13:44 50 mls/hr Q1H [facility]ENT Administration Latanoprost 0.05 ml 12/16/18 22:00 12/24/18 21:40 Xalatan Opht OU 0.05 ml HS VINCENT Administration Pantoprazole Sodium 40 mg 12/23/18 12:45 12/25/18 10:21 Protonix Inj IVP 40 mg DAILY [facility] Administration Rosuvastatin Calcium 10 mg 12/16/18 22:00 12/24/18 21:37 Crestor PO Not Given HS VINCENT Saccharomyces Boulardii 250 mg 12/16/18 12:00 12/25/18 09:56 Florastor PO Not Given BID VINCENT - Patient Studies Lab Studies: Microbiology Studies 12/22/18 13:56 Blood Culture - Preliminary Blood NO GROWTH AFTER 48 HOURS 12/22/18 13:56 Blood Culture - Preliminary Blood NO GROWTH AFTER 48 HOURS Lab Studies 12/25/18 12/25/18 12/25/18 Range/Units 06:28 06:27 06:24 WBC 3.3 L D (4.8-10.8) K/uL RBC 2.77 L (4.40-5.90) Mil/uL Hgb 7.6 L (12.0-18.0) g/dL Hct 24.2 L (35.0-51.0) % MCV 87.4 (80.0-94.0) fL MCH 27.5 (27.0-31.0) pg MCHC 31.5 L (33.0-37.0) g/dL RDW 19.0 H (11.5-14.5) % Plt Count 175 (130-400) K/uL MPV 7.9 (7.2-11.7) fL Neut % (Auto) 81.7 H (50.0-75.0) % Lymph % (Auto) 9.6 L (20.0-40.0) % [place] % (Auto) 8.5 (0.0-10.0) % Eos % (Auto) 0.0 (0.0-4.0) % Baso % (Auto) 0.2 (0.0-2.0) % Neut # (Auto) 2.7 (1.8-7.0) K/uL Lymph # (Auto) 0.3 L (1.0-4.3) K/uL [place] # (Auto) 0.3 (0.0-0.8) K/uL Eos # (Auto) 0.0 (0.0-0.7) K/uL Baso # (Auto) 0.0 (0.0-0.2) K/uL Neutrophils % (Manual) 85 H (50-75) % Band Neutrophils % 2 (0-2) % Lymphocytes % (Manual) 6 L (20-40) % Monocytes % (Manual) 7 (0-10) % Toxic Granulation Present Platelet Estimate Normal (NORMAL) Large Platelets Present Polychromasia Slight Hypochromasia (manual) Slight Poikilocytosis (manual Slight Anisocytosis (manual) Moderate Ovalocytes Slight PT (9.7-12.2) SECONDS INR APTT (21-34) SECONDS Puncture Site pCO2 (35-45) mm/Hg pO2 (80-100) mm/Hg HCO3 (21-28) mmol/L ABG pH (7.35-7.45) ABG Total CO2 (22-28) mmol/L ABG O2 Saturation (95-98) % ABG Base Excess (-2.0-3.0) mmol/L ABG Hemoglobin (11.7-17.4) g/dL ABG Carboxyhemoglobin (0.5-1.5) % POC ABG HHb (Measured) (0.0-5.0) % ABG Methemoglobin (0.0-3.0) % Naif Test A-a O2 Difference mm/Hg Respiratory Index Hgb O2 Saturation (95.0-98.0) % Vent Mode Mechanical Rate FiO2 % Tidal Volume PEEP Sodium 134 (132-148) mmol/L Potassium 3.3 L (3.6-5.2) mmol/L Chloride 108 H (98-107) mmol/L Carbon Dioxide 24 (22-30) mmol/L Anion Gap 5 L (10-20) BUN 25 H (9-20) mg/dL Creatinine 1.1 (0.8-1.5) mg/dL Est GFR ( Amer) > 60 Est GFR (Non-Af Amer) > 60 POC Glucose (mg/dL) 102 (65-110) mg/dL Random Glucose 86 (75-110) mg/dL Calcium 7.6 L (8.6-10.4) mg/dl Phosphorus 2.8 (2.5-4.5) mg/dL Magnesium 2.0 (1.6-2.3) mg/dL Total Bilirubin 0.4 (0.2-1.3) mg/dL AST 93 H (17-59) U/L ALT 33 (21-72) U/L Alkaline Phosphatase 61 (38-126) U/L Total Protein 4.8 L (6.3-8.3) g/dL Albumin 1.9 L (3.5-5.0) g/dL Globulin 2.8 (2.2-3.9) gm/dL Albumin/Globulin Ratio 0.7 L (1.0-2.1) 12/25/18 12/24/18 12/24/18 Range/Units 05:10 23:57 17:41 WBC (4.8-10.8) K/uL RBC (4.40-5.90) Mil/uL Hgb (12.0-18.0) g/dL Hct (35.0-51.0) % MCV (80.0-94.0) fL MCH (27.0-31.0) pg MCHC (33.0-37.0) g/dL RDW (11.5-14.5) % Plt Count (130-400) K/uL MPV (7.2-11.7) fL Neut % (Auto) (50.0-75.0) % Lymph % (Auto) (20.0-40.0) % [place] % (Auto) (0.0-10.0) % Eos % (Auto) (0.0-4.0) % Baso % (Auto) (0.0-2.0) % Neut # (Auto) (1.8-7.0) K/uL Lymph # (Auto) (1.0-4.3) K/uL [place] # (Auto) (0.0-0.8) K/uL Eos # (Auto) (0.0-0.7) K/uL Baso # (Auto) (0.0-0.2) K/uL Neutrophils % (Manual) (50-75) % Band Neutrophils % (0-2) % Lymphocytes % (Manual) (20-40) % Monocytes % (Manual) (0-10) % Toxic Granulation Platelet Estimate (NORMAL) Large Platelets Polychromasia Hypochromasia (manual) Poikilocytosis (manual Anisocytosis (manual) Ovalocytes PT (9.7-12.2) SECONDS INR APTT (21-34) SECONDS Puncture Site Rb pCO2 31 L (35-45) mm/Hg pO2 125 H (80-100) mm/Hg HCO3 23.1 (21-28) mmol/L ABG pH 7.44 (7.35-7.45) ABG Total CO2 22.1 (22-28) mmol/L ABG O2 Saturation 97.6 (95-98) % ABG Base Excess -2.4 L (-2.0-3.0) mmol/L ABG Hemoglobin 10.7 L (11.7-17.4) g/dL ABG Carboxyhemoglobin 0.4 L (0.5-1.5) % POC ABG HHb (Measured) 2.4 (0.0-5.0) % ABG Methemoglobin 0.4 (0.0-3.0) % Naif Test Na A-a O2 Difference 264.0 mm/Hg Respiratory Index 2.1 Hgb O2 Saturation 96.8 (95.0-98.0) % Vent Mode Prvc Mechanical Rate 18 FiO2 60.0 % Tidal Volume 500 PEEP 5 Sodium (132-148) mmol/L Potassium (3.6-5.2) mmol/L Chloride (98-107) mmol/L Carbon Dioxide (22-30) mmol/L Anion Gap (10-20) BUN (9-20) mg/dL Creatinine (0.8-1.5) mg/dL Est GFR ( Amer) Est GFR (Non-Af Amer) POC Glucose (mg/dL) 90 91 (65-110) mg/dL Random Glucose (75-110) mg/dL Calcium (8.6-10.4) mg/dl Phosphorus (2.5-4.5) mg/dL Magnesium (1.6-2.3) mg/dL Total Bilirubin (0.2-1.3) mg/dL AST (17-59) U/L ALT (21-72) U/L Alkaline Phosphatase (38-126) U/L Total Protein (6.3-8.3) g/dL Albumin (3.5-5.0) g/dL Globulin (2.2-3.9) gm/dL Albumin/Globulin Ratio (1.0-2.1) 12/24/18 12/24/18 Range/Units 12:01 11:44 WBC (4.8-10.8) K/uL RBC (4.40-5.90) Mil/uL Hgb (12.0-18.0) g/dL Hct (35.0-51.0) % MCV (80.0-94.0) fL MCH (27.0-31.0) pg MCHC (33.0-37.0) g/dL RDW (11.5-14.5) % Plt Count (130-400) K/uL MPV (7.2-11.7) fL Neut % (Auto) (50.0-75.0) % Lymph % (Auto) (20.0-40.0) % [place] % (Auto) (0.0-10.0) % Eos % (Auto) (0.0-4.0) % Baso % (Auto) (0.0-2.0) % Neut # (Auto) (1.8-7.0) K/uL Lymph # (Auto) (1.0-4.3) K/uL [place] # (Auto) (0.0-0.8) K/uL Eos # (Auto) (0.0-0.7) K/uL Baso # (Auto) (0.0-0.2) K/uL Neutrophils % (Manual) (50-75) % Band Neutrophils % (0-2) % Lymphocytes % (Manual) (20-40) % Monocytes % (Manual) (0-10) % Toxic Granulation Platelet Estimate (NORMAL) Large Platelets Polychromasia Hypochromasia (manual) Poikilocytosis (manual Anisocytosis (manual) Ovalocytes PT 11.3 (9.7-12.2) SECONDS INR 1.0 APTT 35 H (21-34) SECONDS Puncture Site pCO2 (35-45) mm/Hg pO2 (80-100) mm/Hg HCO3 (21-28) mmol/L ABG pH (7.35-7.45) ABG Total CO2 (22-28) mmol/L ABG O2 Saturation (95-98) % ABG Base Excess (-2.0-3.0) mmol/L ABG Hemoglobin (11.7-17.4) g/dL ABG Carboxyhemoglobin (0.5-1.5) % POC ABG HHb (Measured) (0.0-5.0) % ABG Methemoglobin (0.0-3.0) % Naif Test A-a O2 Difference mm/Hg Respiratory Index Hgb O2 Saturation (95.0-98.0) % Vent Mode Mechanical Rate FiO2 % Tidal Volume PEEP Sodium (132-148) mmol/L Potassium (3.6-5.2) mmol/L Chloride (98-107) mmol/L Carbon Dioxide (22-30) mmol/L Anion Gap (10-20) BUN (9-20) mg/dL Creatinine (0.8-1.5) mg/dL Est GFR ( Amer) Est GFR (Non-Af Amer) POC Glucose (mg/dL) 86 (65-110) mg/dL Random Glucose (75-110) mg/dL Calcium (8.6-10.4) mg/dl Phosphorus (2.5-4.5) mg/dL Magnesium (1.6-2.3) mg/dL Total Bilirubin (0.2-1.3) mg/dL AST (17-59) U/L ALT (21-72) U/L Alkaline Phosphatase (38-126) U/L Total Protein (6.3-8.3) g/dL Albumin (3.5-5.0) g/dL Globulin (2.2-3.9) gm/dL Albumin/Globulin Ratio (1.0-2.1) Laboratory Results - last 24 hr 12/24/18 12/24/18 12/24/18 11:44 12:01 17:41 WBC RBC Hgb Hct MCV MCH MCHC RDW Plt Count MPV Neut % (Auto) Lymph % (Auto) [place] % (Auto) Eos % (Auto) Baso % (Auto) Neut # (Auto) Lymph # (Auto) [place] # (Auto) Eos # (Auto) Baso # (Auto) Neutrophils % (Manual) Band Neutrophils % Lymphocytes % (Manual) Monocytes % (Manual) Toxic Granulation Platelet Estimate Large Platelets Polychromasia Hypochromasia (manual) Poikilocytosis (manual Anisocytosis (manual) Ovalocytes PT 11.3 INR 1.0 APTT 35 H Puncture Site pCO2 pO2 HCO3 ABG pH ABG Total CO2 ABG O2 Saturation ABG Base Excess ABG Hemoglobin ABG Carboxyhemoglobin POC ABG HHb (Measured) ABG Methemoglobin Naif Test A-a O2 Difference Respiratory Index Hgb O2 Saturation Vent Mode Mechanical Rate FiO2 Tidal Volume PEEP Sodium Potassium Chloride Carbon Dioxide Anion Gap BUN Creatinine Est GFR ( Amer) Est GFR (Non-Af Amer) POC Glucose (mg/dL) 86 91 Random Glucose Calcium Phosphorus Magnesium Total Bilirubin AST ALT Alkaline Phosphatase Total Protein Albumin Globulin Albumin/Globulin Ratio 12/24/18 12/25/18 12/25/18 23:57 05:10 06:24 WBC RBC Hgb Hct MCV MCH MCHC RDW Plt Count MPV Neut % (Auto) Lymph % (Auto) [place] % (Auto) Eos % (Auto) Baso % (Auto) Neut # (Auto) Lymph # (Auto) [place] # (Auto) Eos # (Auto) Baso # (Auto) Neutrophils % (Manual) Band Neutrophils % Lymphocytes % (Manual) Monocytes % (Manual) Toxic Granulation Platelet Estimate Large Platelets Polychromasia Hypochromasia (manual) Poikilocytosis (manual Anisocytosis (manual) Ovalocytes PT INR APTT Puncture Site Rb pCO2 31 L pO2 125 H HCO3 23.1 ABG pH 7.44 ABG Total CO2 22.1 ABG O2 Saturation 97.6 ABG Base Excess -2.4 L ABG Hemoglobin 10.7 L ABG Carboxyhemoglobin 0.4 L POC ABG HHb (Measured) 2.4 ABG Methemoglobin 0.4 Naif Test Na A-a O2 Difference 264.0 Respiratory Index 2.1 Hgb O2 Saturation 96.8 Vent Mode Prvc Mechanical Rate 18 FiO2 60.0 Tidal Volume 500 PEEP 5 Sodium Potassium Chloride Carbon Dioxide Anion Gap BUN Creatinine Est GFR ( Amer) Est GFR (Non-Af Amer) POC Glucose (mg/dL) 90 102 Random Glucose Calcium Phosphorus Magnesium Total Bilirubin AST ALT Alkaline Phosphatase Total Protein Albumin Globulin Albumin/Globulin Ratio 12/25/18 12/25/18 06:27 06:28 WBC 3.3 L D RBC 2.77 L Hgb 7.6 L Hct 24.2 L MCV 87.4 MCH 27.5 MCHC 31.5 L RDW 19.0 H Plt Count 175 MPV 7.9 Neut % (Auto) 81.7 H Lymph % (Auto) 9.6 L [place] % (Auto) 8.5 Eos % (Auto) 0.0 Baso % (Auto) 0.2 Neut # (Auto) 2.7 Lymph # (Auto) 0.3 L [place] # (Auto) 0.3 Eos # (Auto) 0.0 Baso # (Auto) 0.0 Neutrophils % (Manual) 85 H Band Neutrophils % 2 Lymphocytes % (Manual) 6 L Monocytes % (Manual) 7 Toxic Granulation Present Platelet Estimate Normal Large Platelets Present Polychromasia Slight Hypochromasia (manual) Slight Poikilocytosis (manual Slight Anisocytosis (manual) Moderate Ovalocytes Slight PT INR APTT Puncture Site pCO2 pO2 HCO3 ABG pH ABG Total CO2 ABG O2 Saturation ABG Base Excess ABG Hemoglobin ABG Carboxyhemoglobin POC ABG HHb (Measured) ABG Methemoglobin Naif Test A-a O2 Difference Respiratory Index Hgb O2 Saturation Vent Mode Mechanical Rate FiO2 Tidal Volume PEEP Sodium 134 Potassium 3.3 L Chloride 108 H Carbon Dioxide 24 Anion Gap 5 L BUN 25 H Creatinine 1.1 Est GFR ( Amer) > 60 Est GFR (Non-Af Amer) > 60 POC Glucose (mg/dL) Random Glucose 86 Calcium 7.6 L Phosphorus 2.8 Magnesium 2.0 Total Bilirubin 0.4 AST 93 H ALT 33 Alkaline Phosphatase 61 Total Protein 4.8 L Albumin 1.9 L Globulin 2.8 Albumin/Globulin Ratio 0.7 L Fingerstick Blood Sugar Results: 102 Review of Systems - Review of Systems Systems not reviewed;Unavailable: Intubated Assessment/Plan - Assessment and Plan (Free Text) Assessment: 83 y/o male PMhx severe aortic stenosis, paroxysmal A-fib, HTN, and dementia, admitted for sepsis 2/2 to [facility]CAP admitted to ICU for respiratory failure -Aspiration PNA: continue abx as per ID, sputum culture sent -Hypoxic respiratory failure: continue CPAP, Fio2 30%, obtain CT chest suspect pleural effusion, possible thoracentesis -feeding: no access to tube feeding, fmaily requested no NG tube, possible peg placement -Chronic anemia:continue to monitor -monitor urine output -continue dvt/pud ppx -Palliative care consulted, recs appreciated Prognosis guarded 2nd age, severity of and poor access for feeding (resulting in malnutritoin) cc time 38 minutes Addendum: Difficult to detect SPO2 2nd Pulsus parvus and tardus - Date & Time Date: 12/25/18 Time: 11:50
[2018-12-25 12:07] LABS: ABG ALLEN TEST POS; ARTERIAL BLOOD GAS HCO3 19.1 mmol/L (21-28); ARTERIAL BLOOD GAS O2 SAT 27.1 % (95-98); ARTERIAL BLOOD GAS PCO2 42 mm/Hg (35-45); ARTERIAL BLOOD GAS PH 7.31 (7.35-7.45); ARTERIAL BLOOD GAS PO2 20 mm/Hg (80-100); ARTERIAL BLOOD GAS TCO2 22.4 mmol/L (22-28)
--- NOTE | 2018-12-25 16:43 | RAD ---
Date of service: 12/25/2018 HISTORY: eval et tube COMPARISON: 12/24/2018 TECHNIQUE: 1 view obtained. FINDINGS: LUNGS: Extensive opacity at right base increased from prior examination. PLEURA: Bilateral small pleural effusion. No pneumothorax. CARDIOVASCULAR: There is atherosclerotic calcification of the thoracic aortic arch. Normal cardiac size. Congestive change is noted. An endotracheal tube is seen with its tip approximately 5 cm above the tracheal nessa. A right IJ central venous catheter is unchanged in position. OSSEOUS STRUCTURES: No significant abnormalities. VISUALIZED UPPER ABDOMEN: Normal. OTHER FINDINGS: None. IMPRESSION: The ET tube in grossly appropriate position. Increased opacity at right base. Bilateral pleural effusion and congestive change. Possible pulmonary edema.
[2018-12-25] MEDS: Latanoprost 2.5 ml Opht Soln OU SCH (21:35)
[2018-12-26] MEDS: Cefepime 2 GM in Sodium Chloride 0.9% 100 ML IVPB SCH ×2 (02:00→14:14)
[2018-12-26] MEDS: Albuterol-Ipratrop 3 mg / 0.5 (3 ml) UD INH SCH ×4 (02:14→19:51)
[2018-12-26 05:58] LABS: ARTERIAL BLOOD GAS HCO3 22.1 mmol/L (21-28); ARTERIAL BLOOD GAS HEMOGLOBIN 8.2 g/dL (11.7-17.4); ARTERIAL BLOOD GAS O2 SAT 97.6 % (95-98); ARTERIAL BLOOD GAS PCO2 24 mm/Hg (35-45); ARTERIAL BLOOD GAS PO2 129 mm/Hg (80-100); ARTERIAL BLOOD GAS TCO2 19.4 mmol/L (22-28)
[2018-12-26 06:18] LABS: EOS % 0.3 % (0.0-4.0); LYMPH # 0.7 K/uL (1.0-4.3); LYMPH % 27.7 % (20.0-40.0); MEAN CELL VOLUME 86.8 fL (80.0-94.0); MEAN CORPUSCULAR HEMOGLOBIN 27.8 pg (27.0-31.0); MEAN PLATELET VOLUME 8.2 fL (7.2-11.7); MONO # 0.4 K/uL (0.0-0.8); MONO % 15.2 % (0.0-10.0); NEUT # 1.4 K/uL (1.8-7.0); NEUT % 55.8 % (50.0-75.0); NRBC % 0.2 % (0.0-2.0); RBC 2.87 Mil/uL (4.40-5.90); RED CELL DISTRIBUTION WIDTH 19.2 % (11.5-14.5); WHITE BLOOD COUNT 2.4 K/uL (4.8-10.8)
[2018-12-26 06:35] LABS: ALB/GLOB RATIO 0.6 (1.0-2.1); ALBUMIN 1.8 g/dL (3.5-5.0); ALT/SGPT 33 U/L (21-72); AST/SGOT 76 U/L (17-59); BLOOD UREA NITROGEN 22 mg/dL (9-20); CALCIUM 7.8 mg/dl (8.6-10.4); GFR NON-AFRICAN AMERICAN > 60
--- NOTE | 2018-12-26 09:01 | CP.PCM.PN ---
Subjective - Date & Time of Evaluation Date of Evaluation: 12/26/18 Time of Evaluation: 08:57 - Subjective Subjective: SURGERY NOTE FOR DR. VIDAL SmithM seen and examined at bedside. Patient with ventilator dependent respiratory failure. Objective - Vital Signs/Intake and Output Vital Signs (last 24 hours): Temp Pulse Resp BP Pulse Ox 98.4 F 59 L 18 109/58 L 100 12/26/18 08:49 12/26/18 08:00 12/26/18 08:00 12/26/18 07:20 12/26/18 08:00 Intake and Output: 12/26/18 12/26/18 06:59 18:59 Intake Total 925 225 Output Total 301 500 Balance 624 -275 - Medications Medications: Current Medications Acetaminophen (Tylenol 325mg Tab) 650 mg PO Q6 PRN PRN Reason: Fever >100.4 F Last Admin: 12/21/18 13:51 Dose: 650 mg Acetaminophen (Tylenol 650 Mg Supp) 650 mg ID Q4 PRN PRN Reason: fEVER > 101 Last Admin: 12/25/18 01:30 Dose: 650 mg Albuterol/Ipratropium (Duoneb 3 Mg/0.5 Mg (3 Ml) Ud) 3 ml INH RQ6 PENDING SALE TO [facility] Last Admin: 12/26/18 08:15 Dose: 3 ml Amiodarone HCl (Cordarone) 200 mg PO DAILY [facility] Last Admin: 12/25/18 09:55 Dose: Not Given Apixaban (Eliquis) 2.5 mg PO BID [facility]END[facility] Last Admin: 12/24/18 10:01 Dose: Not Given Diltiazem HCl (Cardizem) 30 mg PO TID [facility]END[facility] Last Admin: 12/25/18 19:15 Dose: Not Given Donepezil HCl (Aricept) 5 mg PO HS [facility] Last Admin: 12/25/18 23:46 Dose: Not Given Finasteride (Proscar) 5 mg PO DAILY [facility] Last Admin: 12/25/18 09:56 Dose: Not Given Guaifenesin (Robitussin) 100 mg PO BID [facility] Last Admin: 12/25/18 19:16 Dose: Not Given Cefepime HCl 2 gm/ Sodium (Chloride) 100 mls @ 100 mls/hr IVPB Q12H PENDING SALE TO [facility]; Protocol Last Admin: 12/26/18 02:00 Dose: 100 mls/hr Vancomycin HCl 1,000 mg/ (Sodium Chloride) 250 mls @ 166.6 mls/hr IVPB DAILY [facility]INCENT; Protocol Last Admin: 12/25/18 10:20 Dose: 166.6 mls/hr Dexmedetomidine HCl 200 mcg/ (Sodium Chloride) 50 mls @ 2.09 mls/hr IV TITR PRN; Protocol PRN Reason: Agitation Last Titration: 12/24/18 06:39 Dose: 0.2 mcg/kg/hr, 2.1 mls/hr Latanoprost (Xalatan Opht) 0.05 ml OU HS PENDING SALE [facility] Last Admin: 12/25/18 21:35 Dose: 0.05 ml Pantoprazole Sodium (Protonix Inj) 40 mg IVP DAILY [facility] Last Admin: 12/25/18 10:21 Dose: 40 mg Rosuvastatin Calcium (Crestor) 10 mg PO HS [facility]INCENT Last Admin: 12/25/18 23:46 Dose: Not Given Saccharomyces Boulardii (Florastor) 250 mg PO BID PEND[facility] S[facility] Last Admin: 12/25/18 19:16 Dose: Not Given - Labs Labs: 12/26/18 06:13 12/26/18 06:11 PT 11.3 SECONDS (9.7-12.2) 12/24/18 11:44 INR 1.0 12/24/18 11:44 APTT 35 SECONDS (21-34) H 12/24/18 11:44 - Constitutional Appears: Other (intubated and sedated) - Respiratory Exam Additional comments: intubated and sedated - Cardiovascular Exam Cardiovascular Exam: REGULAR RHYTHM, +S1, +S2 Assessment and Plan - Assessment and Plan (Free Text) Assessment: 83M with VDRF Plan: - Plan for tracheostomy Thursday - PEG with GI Thursday. Open gastrostomy if unable to place PEG Further recs discuss with Dr. Vidal Aranda, PGY3
[2018-12-26] MEDS ORDERED: Dextrose 5%/0.9% NS 1,000 ML IV ONE (09:06)
--- NOTE | 2018-12-26 09:43 | PN ---
DATE: 12/26/2018 LOCATION: ICU 7. SUBJECTIVE: This is an 83-year-old male, seen and examined early today, intubated, on vent with period of agitation as reported. No reported active bleeding; however, the patient is incontinent of urine and stool recently. The entire chart is reviewed including but not limited to the most recent lab and radiology study results, current and the previous medication list. Today's lab results showed white blood cells of 2.4, hemoglobin 8, hematocrit 25 with normal platelet count and the abnormal ABGs with potassium 3.5 with BUN of 22, creatinine 1.1, calcium 7.8. AST 76 with normal ALT, albumin 1.8 due to malnutrition. Most recent chest x-ray done yesterday, official report is seen. PHYSICAL EXAMINATION: GENERAL: An 83-year-old male. VITAL SIGNS: Temperature of 99.4, pulse of 80, blood pressure 110/76. HEENT: Showed pale dry oral mucous membrane. Nonicteric sclerae. LUNGS: Few scattered crepitation. Decreased air entry at bases. HEART: Positive S1 and S2. ABDOMEN: Soft. Bowel sounds are present. No mass or organomegaly. No rebound tenderness or guarding. EXTREMITIES: Without significant clubbing, cyanosis or edema. NEUROLOGIC: No reported new neurological deficits, sensory or motor. IMPRESSION: 1. Malnutrition with hypoalbuminemia, hypoproteinemia. 2. The patient is a candidate for percutaneous endoscopic gastrostomy insertion. 3. Multiple past medical history including mainly hypertension, aortic stenosis, atrial fibrillation with reported dementia. 4. Pneumonia with septicemia. 5. Respiratory failure. The patient was intubated. 6. Hypochromic microcytic anemia, the possibility of gastrointestinal blood loss versus anemia secondary to chronic disease should be ruled in or out. SUGGESTIONS: 1. Agree with your plan. 2. Correct underlying electrolyte imbalance. 3. Peripheral hyperalimentation. 4. The patient is scheduled for potential PEG insertion at a.m. when he is more stable clinically, that to be also discussed with the family members for potential consent from the legal guardian. 5. Further recommendation to follow. Mu Suazo MD [facility] # [id number]
[2018-12-26] MEDS: Saccharomyces Boulardi 250 mg Cap PO SCH ×2 (09:54→17:20)
[2018-12-26] MEDS: guaiFENesin 100 mg/5 ml Syrup UD PO SCH ×2 (09:55→17:20)
--- NOTE | 2018-12-26 12:09 | CP.PCM.PN ---
Subjective - Date & Time of Evaluation Date of Evaluation: 12/26/18 Time of Evaluation: 12:07 - Subjective Subjective: Patient seen and examined at bedside. Patient tolerating CPAP, pending PEG placement in AM, extubate, (+)secretions less Objective - Vital Signs/Intake and Output Vital Signs (last 24 hours): Temp Pulse Resp BP Pulse Ox 98.4 F 84 19 121/67 100 12/26/18 08:49 12/26/18 11:27 12/26/18 11:27 12/26/18 11:27 12/26/18 11:27 Intake and Output: 12/26/18 12/26/18 06:59 18:59 Intake Total 925 694 Output Total 301 500 Balance 624 194 - Medications Medications: Current Medications Acetaminophen (Tylenol 325mg Tab) 650 mg PO Q6 PRN PRN Reason: Fever >100.4 F Last Admin: 12/21/18 13:51 Dose: 650 mg Acetaminophen (Tylenol 650 Mg Supp) 650 mg SC Q4 PRN PRN Reason: fEVER > 101 Last Admin: 12/25/18 01:30 Dose: 650 mg Albuterol/Ipratropium (Duoneb 3 Mg/0.5 Mg (3 Ml) Ud) 3 ml INH RQ6 [facility] Last Admin: 12/26/18 08:15 Dose: 3 ml Amiodarone HCl (Cordarone) 200 mg PO DAILY [facility] Last Admin: 12/26/18 09:54 Dose: Not Given Apixaban (Eliquis) 2.5 mg PO BID [facility] Last Admin: 12/24/18 10:01 Dose: Not Given Diltiazem HCl (Cardizem) 30 mg PO TID [facility] Last Admin: 12/26/18 09:54 Dose: Not Given Donepezil HCl (Aricept) 5 mg PO HS [facility] Last Admin: 12/25/18 23:46 Dose: Not Given Finasteride (Proscar) 5 mg PO DAILY [facility] Last Admin: 12/26/18 09:55 Dose: Not Given Guaifenesin (Robitussin) 100 mg PO BID [facility] Last Admin: 12/26/18 09:55 Dose: Not Given Cefepime HCl 2 gm/ Sodium (Chloride) 100 mls @ 100 mls/hr IVPB Q12H [facility]; Protocol Last Admin: 12/26/18 02:00 Dose: 100 mls/hr Vancomycin HCl 1,000 mg/ (Sodium Chloride) 250 mls @ 166.6 mls/hr IVPB DAILY [facility]; Protocol Last Admin: 12/26/18 10:15 Dose: 166.6 mls/hr Potassium Chloride (Potassium Chloride 20 Meq/100 Ml) 20 meq in 100 mls @ 50 mls/hr IVPB Q1H [facility] Stop: 12/26/18 12:59 Last Admin: 12/26/18 10:16 Dose: 50 mls/hr Dextrose/Sodium Chloride (Dextrose 5%/0.9% Ns 1000 Ml) 1,000 mls @ 42 mls/hr IV .[id number] ONE Stop: 12/27/18 08:54 Last Admin: 12/26/18 10:16 Dose: 42 mls/hr Latanoprost (Xalatan Opht) 0.05 ml OU HS [facility] Last Admin: 12/25/18 21:35 Dose: 0.05 ml Pantoprazole Sodium (Protonix Inj) 40 mg IVP DAILY [facility] Last Admin: 12/26/18 10:15 Dose: 40 mg Rosuvastatin Calcium (Crestor) 10 mg PO HS [facility] Last Admin: 12/25/18 23:46 Dose: Not Given Saccharomyces Boulardii (Florastor) 250 mg PO BID [facility] Last Admin: 12/26/18 09:54 Dose: Not Given - Labs Labs: 12/26/18 06:13 12/26/18 06:11 PT 11.3 SECONDS (9.7-12.2) 12/24/18 11:44 INR 1.0 12/24/18 11:44 APTT 35 SECONDS (21-34) H 12/24/18 11:44 - Constitutional Appears: Well, Non-toxic, No Acute Distress - Head Exam Head Exam: ATRAUMATIC - Respiratory Exam Respiratory Exam: Clear to Ausculation Bilateral, NORMAL BREATHING PATTERN - Cardiovascular Exam Cardiovascular Exam: REGULAR RHYTHM, +S1, +S2, Murmur - GI/Abdominal Exam GI & Abdominal Exam: Soft, Normal Bowel Sounds. absent: Guarding, Rigid, Tenderness - Extremities Exam Extremities Exam: Normal Inspection - Neurological Exam Neurological Exam: Alert, Awake - Skin Skin Exam: Normal Color, Warm Assessment and Plan - Assessment and Plan (Free Text) Assessment: 83 y/o male PMhx severe aortic stenosis, paroxysmal A-fib, HTN, and dementia, admitted for sepsis 2/2 to HCAP admitted to ICU for respiratory failure -Aspiration PNA: continue abx as per ID, sputum culture pending, secretions less -Hypoxic respiratory failure: continue CPAP, Fio2 30%, obtain CT chest suspect pleural effusion, possible thoracentesis -feeding: no access to tube feeding, famaily requested no NG tube, possible peg placement -Chronic anemia:continue to monitor -monitor urine output -continue dvt/pud ppx Prognosis guarded 2nd age, severity of and poor access for feeding (resulting in malnutritoin) -pending PEG in AM
--- NOTE | 2018-12-26 15:53 | CP.PCM.PN ---
Subjective - Date & Time of Evaluation Date of Evaluation: 12/26/18 Time of Evaluation: 09:00 - Subjective Subjective: seen on rounds ROS completed chart reviewed patient examined orders written antibiotics renewed Objective - Vital Signs/Intake and Output Vital Signs (last 24 hours): Temp Pulse Resp BP Pulse Ox 98.1 F 56 L 14 101/58 L 100 12/26/18 12:00 12/26/18 14:00 12/26/18 14:00 12/26/18 13:26 12/26/18 14:00 Intake and Output: 12/26/18 12/26/18 06:59 18:59 Intake Total 925 936 Output Total 301 500 Balance 624 436 - Medications Medications: Current Medications Acetaminophen (Tylenol 325mg Tab) 650 mg PO Q6 PRN PRN Reason: Fever >100.4 F Last Admin: 12/21/18 13:51 Dose: 650 mg Acetaminophen (Tylenol 650 Mg Supp) 650 mg NC Q4 PRN PRN Reason: fEVER > 101 Last Admin: 12/25/18 01:30 Dose: 650 mg Albuterol/Ipratropium (Duoneb 3 Mg/0.5 Mg (3 Ml) Ud) 3 ml INH RQ6 [facility] Last Admin: 12/26/18 13:50 Dose: 3 ml Amiodarone HCl (Cordarone) 200 mg PO DAILY [facility] Last Admin: 12/26/18 09:54 Dose: Not Given Apixaban (Eliquis) 2.5 mg PO BID [facility] Last Admin: 12/24/18 10:01 Dose: Not Given Diltiazem HCl (Cardizem) 30 mg PO TID [facility] Last Admin: 12/26/18 14:13 Dose: Not Given Donepezil HCl (Aricept) 5 mg PO HS [facility] Last Admin: 12/25/18 23:46 Dose: Not Given Finasteride (Proscar) 5 mg PO DAILY [facility] Last Admin: 12/26/18 09:55 Dose: Not Given Guaifenesin (Robitussin) 100 mg PO BID [facility] Last Admin: 12/26/18 09:55 Dose: Not Given Cefepime HCl 2 gm/ Sodium (Chloride) 100 mls @ 100 mls/hr IVPB Q12H [facility]; Protocol Last Admin: 12/26/18 14:14 Dose: 100 mls/hr Vancomycin HCl 1,000 mg/ (Sodium Chloride) 250 mls @ 166.6 mls/hr IVPB DAILY [facility]; Protocol Last Admin: 12/26/18 10:15 Dose: 166.6 mls/hr Dextrose/Sodium Chloride (Dextrose 5%/0.9% Ns 1000 Ml) 1,000 mls @ 42 mls/hr IV .[id number] ONE Stop: 12/27/18 08:54 Last Admin: 12/26/18 10:16 Dose: 42 mls/hr Latanoprost (Xalatan Opht) 0.05 ml OU HS [facility] Last Admin: 12/25/18 21:35 Dose: 0.05 ml Pantoprazole Sodium (Protonix Inj) 40 mg IVP DAILY [facility] Last Admin: 12/26/18 10:15 Dose: 40 mg Rosuvastatin Calcium (Crestor) 10 mg PO HS [facility] Last Admin: 12/25/18 23:46 Dose: Not Given Saccharomyces Boulardii (Florastor) 250 mg PO BID [facility] Last Admin: 12/26/18 09:54 Dose: Not Given - Labs Labs: 12/26/18 06:13 12/26/18 06:11 PT 11.3 SECONDS (9.7-12.2) 12/24/18 11:44 INR 1.0 12/24/18 11:44 APTT 35 SECONDS (21-34) H 12/24/18 11:44 - Constitutional Appears: Confused, Cachectic, Chronically Ill - Head Exam Head Exam: NORMOCEPHALIC - Eye Exam Eye Exam: absent: Scleral icterus Pupil Exam: NORMAL ACCOMODATION - ENT Exam ENT Exam: Mucous Membranes Dry, Normal External Ear Exam - Neck Exam Neck Exam: absent: Lymphadenopathy - Respiratory Exam Respiratory Exam: Decreased Breath Sounds - Cardiovascular Exam Cardiovascular Exam: REGULAR RHYTHM, +S1, +S2 - GI/Abdominal Exam GI & Abdominal Exam: Distended, Soft. absent: Tenderness - Rectal Exam Rectal Exam: Deferred - Exam Exam: NORMAL INSPECTION - Back Exam Back Exam: absent: CVA tenderness (L), CVA tenderness (R) - Neurological Exam Neurological Exam: Alert, Altered, Awake, CN II-XII Intact. absent: Oriented x3 - Psychiatric Exam Psychiatric exam: Depressed Assessment and Plan (1) CVA (cerebral vascular accident) Status: Acute (2) Sepsis Status: Acute (3) Respiratory failure Status: Acute (4) COPD (chronic obstructive pulmonary disease) Status: Acute (5) OBS (organic brain syndrome) Status: Acute (6) HTN (hypertension) Status: Acute (7) Pneumonia Status: Acute - Assessment and Plan (Free Text) Assessment: weaning as tolerated cont IV antibiotics
[2018-12-26] MEDS: Latanoprost 2.5 ml Opht Soln OU SCH (21:34)
[2018-12-27] MEDS: Albuterol-Ipratrop 3 mg / 0.5 (3 ml) UD INH SCH ×4 (01:43→19:52)
[2018-12-27] MEDS: Cefepime 2 GM in Sodium Chloride 0.9% 100 ML IVPB SCH (02:18)
[2018-12-27 06:18] LABS: BASO % 0.3 % (0.0-2.0); EOS % 0.3 % (0.0-4.0); HEMOGLOBIN 7.9 g/dL (12.0-18.0); LYMPH # 0.6 K/uL (1.0-4.3); LYMPH % 22.8 % (20.0-40.0); MEAN CELL VOLUME 86.9 fL (80.0-94.0); MEAN CORPUSCULAR HEMOGLOBIN 27.5 pg (27.0-31.0); MEAN CORPUSCULAR HGB CONC 31.6 g/dL (33.0-37.0); MEAN PLATELET VOLUME 8.1 fL (7.2-11.7); MONO # 0.3 K/uL (0.0-0.8); MONO % 12.1 % (0.0-10.0); NEUT # 1.8 K/uL (1.8-7.0); NEUT % 64.5 % (50.0-75.0); RBC 2.87 Mil/uL (4.40-5.90); RED CELL DISTRIBUTION WIDTH 19.3 % (11.5-14.5); WHITE BLOOD COUNT 2.8 K/uL (4.8-10.8)
[2018-12-27 06:26] LABS: ALB/GLOB RATIO 0.7 (1.0-2.1); ALBUMIN 2.1 g/dL (3.5-5.0); ALT/SGPT 36 U/L (21-72); AST/SGOT 75 U/L (17-59); BLOOD UREA NITROGEN 19 mg/dL (9-20); CALCIUM 8.1 mg/dl (8.6-10.4); GFR NON-AFRICAN AMERICAN > 60
--- NOTE | 2018-12-27 07:25 | CP.CCUPN ---
CCU Subjective - Physician Review Subjective (Free Text): ICU Progress Note for Dr. Lucas Pt seen and examined at bedside. On venti mask, speaking verbally, unable to obtain HPI or ROS due to pt's hx of dementia. S/p extubation yesterday. CCU Objective - Vital Signs / Intake & Output Vital Signs (Last 4 hours): Vital Signs Temp Pulse Resp BP Pulse Ox 12/27/18 06:00 74 24 98 12/27/18 05:26 68 23 125/56 L 99 12/27/18 05:00 71 24 98 12/27/18 04:26 68 21 125/52 L 97 12/27/18 04:00 98.5 F 72 26 H 98 12/27/18 03:26 74 29 H 118/60 97 Intake and Output (Last 8hrs): Intake & Output 12/26/18 12/27/18 12/27/18 22:59 06:59 14:59 Intake Total 386 415 Output Total 1100 1000 Balance -714 -585 Weight 96 lb Intake: Intake, IV Amount 386 415 rt ij distal port 50 rt. IJ TLC 336 415 Output: Urine 1100 1000 Urine, Voided 1100 1000 Other: # Bowel Movements 1 1 - Physical Exam Head: Positive for: Atraumatic, Normocephalic Pupils: Positive for: PERRL Conjunctiva: Positive for: Normal Mouth: Positive for: Moist Mucous Membranes Respiratory/Chest: Positive for: Rales. Negative for: Respiratory Distress, Wheezes, Rhonchi Cardiovascular: Positive for: Murmurs (systolic murmur appreciated), Normal S1, S2. Negative for: Rub, Gallop Abdomen: Positive for: Normal Bowel Sounds. Negative for: Tenderness, D istention Upper Extremity: Positive for: NORMAL PULSES, Neurovascularly Intact, Capillary Refill < 2s. Negative for: Cyanosis, Edema Lower Extremity: Positive for: Normal Inspection, NORMAL PULSES, Neurovascularly Intact, Capillary Refill < 2 s. Negative for: Edema Neurological: Positive for: Other (demented, hx CVA) Skin: Positive for: Warm, Dry, Normal Color Psychiatric: Positive for: Other (intubated) - Medications Active Medications: Active Medications Generic Name Dose Route Start Last Admin Trade Name Freq PRN Reason Stop Dose Admin Acetaminophen 650 mg 12/16/18 07:35 12/21/18 13:51 Tylenol 325mg Tab PO 650 mg Q6 PRN Administration Fever >100.4 F Acetaminophen 650 mg 12/24/18 21:15 12/25/18 01:30 Tylenol 650 Mg Supp LA 650 mg Q4 PRN Administration fEVER > 101 Albuterol/Ipratropium 3 ml 12/25/18 14:00 12/27/18 01:43 Duoneb 3 Mg/0.5 Mg (3 Ml) Ud INH 3 ml RQ6 [facility] Administration Amiodarone HCl 200 mg 12/24/18 18:00 12/26/18 09:54 Cordarone PO Not Given DAILY [facility] Apixaban 2.5 mg 12/16/18 18:00 12/24/18 10:01 Eliquis PO Not Given BID [facility] Diltiazem HCl 30 mg 12/21/18 14:45 12/26/18 17:20 Cardizem PO Not Given TID [facility] Donepezil HCl 5 mg 12/16/18 22:00 12/26/18 21:46 Aricept PO Not Given HS [facility] Finasteride 5 mg 12/16/18 12:00 12/26/18 09:55 Proscar PO Not Given DAILY [facility] Guaifenesin 100 mg 12/23/18 18:00 12/26/18 17:20 Robitussin PO Not Given BID [facility] Cefepime HCl 2 gm/ Sodium 100 mls @ 100 mls/hr 12/17/18 14:30 12/27/18 02:18 Chloride IVPB 100 mls/hr Q12H [facility] Administration Protocol Vancomycin HCl 1,000 mg/ 250 mls @ 166.6 mls/hr 12/21/18 10:00 12/26/18 10:15 Sodium Chloride IVPB 166.6 mls/hr DAILY [facility] Administration Protocol Dextrose/Sodium Chloride 1,000 mls @ 42 mls/hr 12/26/18 09:06 12/26/18 10:16 Dextrose 5%/0.9% Ns 1000 Ml IV 12/27/18 08:54 42 mls/hr .[id number] Administration Latanoprost 0.05 ml 12/16/18 22:00 12/26/18 21:34 Xalatan Opht OU 0.05 ml HS [facility] Administration Pantoprazole Sodium 40 mg 12/23/18 12:45 12/26/18 10:15 Protonix Inj IVP 40 mg DAILY [facility] Administration Rosuvastatin Calcium 10 mg 12/16/18 22:00 12/26/18 21:47 Crestor PO Not Given HS [facility] Saccharomyces Boulardii 250 mg 12/16/18 12:00 12/26/18 17:20 Florastor PO Not Given BID [facility] - Patient Studies Lab Studies: Microbiology Studies 12/25/18 11:36 Gram Stain - Final Sputum Induced Sputum Culture - Preliminary Gram Negative Erich 12/22/18 13:56 Blood Culture - Preliminary Blood NO GROWTH AFTER 4 DAYS 12/22/18 13:56 Blood Culture - Preliminary Blood NO GROWTH AFTER 4 DAYS Lab Studies 12/27/18 12/27/18 12/27/18 Range/Units 06:07 06:05 04:54 WBC 2.8 L (4.8-10.8) K/uL RBC 2.87 L (4.40-5.90) Mil/uL Hgb 7.9 L (12.0-18.0) g/dL Hct 25.0 L (35.0-51.0) % MCV 86.9 (80.0-94.0) fL MCH 27.5 (27.0-31.0) pg MCHC 31.6 L (33.0-37.0) g/dL RDW 19.3 H (11.5-14.5) % Plt Count 157 (130-400) K/uL MPV 8.1 (7.2-11.7) fL Neut % (Auto) 64.5 (50.0-75.0) % Lymph % (Auto) 22.8 (20.0-40.0) % [place] % (Auto) 12.1 H (0.0-10.0) % Eos % (Auto) 0.3 (0.0-4.0) % Baso % (Auto) 0.3 (0.0-2.0) % Neut # (Auto) 1.8 (1.8-7.0) K/uL Lymph # (Auto) 0.6 L (1.0-4.3) K/uL [place] # (Auto) 0.3 (0.0-0.8) K/uL Eos # (Auto) 0.0 (0.0-0.7) K/uL Baso # (Auto) 0.0 (0.0-0.2) K/uL Sodium 136 (132-148) mmol/L Potassium 3.6 (3.6-5.2) mmol/L Chloride 112 H (98-107) mmol/L Carbon Dioxide 22 (22-30) mmol/L Anion Gap 7 L (10-20) BUN 19 (9-20) mg/dL Creatinine 1.1 (0.8-1.5) mg/dL Est GFR ( Amer) > 60 Est GFR (Non-Af Amer) > 60 POC Glucose (mg/dL) 82 (65-110) mg/dL Random Glucose 68 L (75-110) mg/dL Calcium 8.1 L (8.6-10.4) mg/dl Phosphorus 2.6 (2.5-4.5) mg/dL Magnesium 2.1 (1.6-2.3) mg/dL Total Bilirubin 0.4 (0.2-1.3) mg/dL AST 75 H (17-59) U/L ALT 36 (21-72) U/L Alkaline Phosphatase 66 (38-126) U/L Total Protein 5.0 L (6.3-8.3) g/dL Albumin 2.1 L (3.5-5.0) g/dL Globulin 2.9 (2.2-3.9) gm/dL Albumin/Globulin Ratio 0.7 L (1.0-2.1) Random Vancomycin ug/mL 12/27/18 12/26/18 12/26/18 Range/Units 00:00 17:55 12:12 WBC (4.8-10.8) K/uL RBC (4.40-5.90) Mil/uL Hgb (12.0-18.0) g/dL Hct (35.0-51.0) % MCV (80.0-94.0) fL MCH (27.0-31.0) pg MCHC (33.0-37.0) g/dL RDW (11.5-14.5) % Plt Count (130-400) K/uL MPV (7.2-11.7) fL Neut % (Auto) (50.0-75.0) % Lymph % (Auto) (20.0-40.0) % [place] % (Auto) (0.0-10.0) % Eos % (Auto) (0.0-4.0) % Baso % (Auto) (0.0-2.0) % Neut # (Auto) (1.8-7.0) K/uL Lymph # (Auto) (1.0-4.3) K/uL [place] # (Auto) (0.0-0.8) K/uL Eos # (Auto) (0.0-0.7) K/uL Baso # (Auto) (0.0-0.2) K/uL Sodium (132-148) mmol/L Potassium (3.6-5.2) mmol/L Chloride (98-107) mmol/L Carbon Dioxide (22-30) mmol/L Anion Gap (10-20) BUN (9-20) mg/dL Creatinine (0.8-1.5) mg/dL Est GFR ( Amer) Est GFR (Non-Af Amer) POC Glucose (mg/dL) 78 74 85 (65-110) mg/dL Random Glucose (75-110) mg/dL Calcium (8.6-10.4) mg/dl Phosphorus (2.5-4.5) mg/dL Magnesium (1.6-2.3) mg/dL Total Bilirubin (0.2-1.3) mg/dL AST (17-59) U/L ALT (21-72) U/L Alkaline Phosphatase (38-126) U/L Total Protein (6.3-8.3) g/dL Albumin (3.5-5.0) g/dL Globulin (2.2-3.9) gm/dL Albumin/Globulin Ratio (1.0-2.1) Random Vancomycin ug/mL 12/26/18 Range/Units 10:35 WBC (4.8-10.8) K/uL RBC (4.40-5.90) Mil/uL Hgb (12.0-18.0) g/dL Hct (35.0-51.0) % MCV (80.0-94.0) fL MCH (27.0-31.0) pg MCHC (33.0-37.0) g/dL RDW (11.5-14.5) % Plt Count (130-400) K/uL MPV (7.2-11.7) fL Neut % (Auto) (50.0-75.0) % Lymph % (Auto) (20.0-40.0) % [place] % (Auto) (0.0-10.0) % Eos % (Auto) (0.0-4.0) % Baso % (Auto) (0.0-2.0) % Neut # (Auto) (1.8-7.0) K/uL Lymph # (Auto) (1.0-4.3) K/uL [place] # (Auto) (0.0-0.8) K/uL Eos # (Auto) (0.0-0.7) K/uL Baso # (Auto) (0.0-0.2) K/uL Sodium (132-148) mmol/L Potassium (3.6-5.2) mmol/L Chloride (98-107) mmol/L Carbon Dioxide (22-30) mmol/L Anion Gap (10-20) BUN (9-20) mg/dL Creatinine (0.8-1.5) mg/dL Est GFR ( Amer) Est GFR (Non-Af Amer) POC Glucose (mg/dL) (65-110) mg/dL Random Glucose (75-110) mg/dL Calcium (8.6-10.4) mg/dl Phosphorus (2.5-4.5) mg/dL Magnesium (1.6-2.3) mg/dL Total Bilirubin (0.2-1.3) mg/dL AST (17-59) U/L ALT (21-72) U/L Alkaline Phosphatase (38-126) U/L Total Protein (6.3-8.3) g/dL Albumin (3.5-5.0) g/dL Globulin (2.2-3.9) gm/dL Albumin/Globulin Ratio (1.0-2.1) Random Vancomycin 18.5 ug/mL Laboratory Results - last 24 hr 12/26/18 12/26/18 12/26/18 10:35 12:12 17:55 WBC RBC Hgb Hct MCV MCH MCHC RDW Plt Count MPV Neut % (Auto) Lymph % (Auto) [place] % (Auto) Eos % (Auto) Baso % (Auto) Neut # (Auto) Lymph # (Auto) [place] # (Auto) Eos # (Auto) Baso # (Auto) Sodium Potassium Chloride Carbon Dioxide Anion Gap BUN Creatinine Est GFR ( Amer) Est GFR (Non-Af Amer) POC Glucose (mg/dL) 85 74 Random Glucose Calcium Phosphorus Magnesium Total Bilirubin AST ALT Alkaline Phosphatase Total Protein Albumin Globulin Albumin/Globulin Ratio Random Vancomycin 18.5 12/27/18 12/27/18 12/27/18 00:00 04:54 06:05 WBC RBC Hgb Hct MCV MCH MCHC RDW Plt Count MPV Neut % (Auto) Lymph % (Auto) [place] % (Auto) Eos % (Auto) Baso % (Auto) Neut # (Auto) Lymph # (Auto) [place] # (Auto) Eos # (Auto) Baso # (Auto) Sodium 136 Potassium 3.6 Chloride 112 H Carbon Dioxide 22 Anion Gap 7 L BUN 19 Creatinine 1.1 Est GFR ( Amer) > 60 Est GFR (Non-Af Amer) > 60 POC Glucose (mg/dL) 78 82 Random Glucose 68 L Calcium 8.1 L Phosphorus 2.6 Magnesium 2.1 Total Bilirubin 0.4 AST 75 H ALT 36 Alkaline Phosphatase 66 Total Protein 5.0 L Albumin 2.1 L Globulin 2.9 Albumin/Globulin Ratio 0.7 L Random Vancomycin 12/27/18 06:07 WBC 2.8 L RBC 2.87 L Hgb 7.9 L Hct 25.0 L MCV 86.9 MCH 27.5 MCHC 31.6 L RDW 19.3 H Plt Count 157 MPV 8.1 Neut % (Auto) 64.5 Lymph % (Auto) 22.8 [place] % (Auto) 12.1 H Eos % (Auto) 0.3 Baso % (Auto) 0.3 Neut # (Auto) 1.8 Lymph # (Auto) 0.6 L [place] # (Auto) 0.3 Eos # (Auto) 0.0 Baso # (Auto) 0.0 Sodium Potassium Chloride Carbon Dioxide Anion Gap BUN Creatinine Est GFR ( Amer) Est GFR (Non-Af Amer) POC Glucose (mg/dL) Random Glucose Calcium Phosphorus Magnesium Total Bilirubin AST ALT Alkaline Phosphatase Total Protein Albumin Globulin Albumin/Globulin Ratio Random Vancomycin Fingerstick Blood Sugar Results: 82 Review of Systems - Review of Systems Systems not reviewed;Unavailable: Dementia Critical Care Progress Note - Nutrition Nutrition: Nutrition Category Date Time Status NPO Diet [DIET] Diets 12/27/18 Breakfast Active Assessment/Plan - Assessment and Plan (Free Text) Assessment: 83 y o male PMhx severe aortic stenosis (hx family refusing further w/u on prior admission as per chart review), paroxysmal A-fib, HTN, and dementia, admitted for sepsis 2/2 to HCAP. Reason for ICU consult was for hypoxia. RETORT LOAD EXPEDITER was called on 12/22/18 on medical floor for hypoxia and O2 sat of 60% on NC. Pt was placed on non-rebreather and pulse ox was low 80s. Due to hx of severe (with no surgical intervention), pt was intubated by Anesthesia. \ Further ROS was unobtainable at that time due to pt status of respiratory distress. Pt was transferred to ICU and had R internal jugular triple lumen catheter placed. Pt was also hypertensive with BP in ICU 159/101 and tachycardic into the 120s, hypotension resolved today. Acute respiratory failure likely 2/2 to aspiration PNA. S/p extubation on 12/26/18, saturating well on NC today. Plan: Neuro: -S/p extubation, passed speech and swallow eval -Hx dementia -C/w Aricept -Hx CVA, c/w Crestor Cardio: -Tachycardic and hypertensive on initial ICU presentation; today tachycardia resolved, hypotension resolving -Hx aortic stenosis -Cardiology (Dr. Sanchez) consulted, recs appreciated -Hx A-fib -C/w Verapamil, Diltiazem; Eliquis on hold for acute Hgb drop Pulm: -Respiratory distress, intubated and sedated during RETORT LOAD EXPEDITER -S/p extubation 12/26, titrated down to NC, OOB to chair, cont to monitor -Recent ABG on 12/26 was 7.5//129/22.1 -Currently being treated for Sepsis 2/2 to HCAP -Abx changed to Merrem due to ESBL in sputum cx from 12/25 -ID consulted (Dr. Pastrana), recs appreciated GI: -Pureed diet with thin liquids -Peg tube place cancelled 2/ current pt status -Hx ?partial gastrectomy in past, unknown year as per pt's son -Protonix ID: -Urine and blood cxs NGTD -Sputum cx 12/25 positive for ESBL -Rapid flu neg -Merrem -ID on consult -Leukocytosis trending down, currently leukopenic, cont to trend Heme: -Normocytic anemia -Iron <10, TIBC 237, % sat 4.21, Folate >20, B12 526, Ferritin 55.8 -Postpone iron supplementation 2/2 iron promoting microbial growth during current infection -Stool Occult Blood negative -Eliquis on hold for low Hgb, Hgb 7.9 today Renal: -Hx BPH C/w Proscar -Trend I's/O's PPX: -Eliquis held for low Hgb, SCD -Protonix -Palliative care consulted, recs appreciated Pt seen, examined with, and plan discussed with Dr. Lucas, attending physician. Huey Long, DO PGY-1, Veterinary Medicine Teacher Pager #[phone]
[2018-12-27] MEDS: guaiFENesin 100 mg/5 ml Syrup UD PO SCH (09:41)
[2018-12-27] MEDS: Saccharomyces Boulardi 250 mg Cap PO SCH ×2 (09:41→17:45)
[2018-12-27] MEDS ORDERED: Dextrose 50% SYRINGE Inj (50 ml) IV PRN (11:30)
[2018-12-27] MEDS ORDERED: Glucagon Recombinant 1 mg Inj IM PRN (11:30)
[2018-12-27] MEDS: (Novolin R) Insulin Human Regular 100 units/ml vial SC SCH ×3 (12:13→21:24)
[2018-12-27] MEDS: Meropenem 1 GM in Sodium Chloride 0.9% 100 ML IVPB SCH ×2 (13:47→21:22)
[2018-12-27] MEDS: Dextrose 5%/0.9% NS 1,000 ML IV SCH (20:43)
[2018-12-27] MEDS: Latanoprost 2.5 ml Opht Soln OU SCH (21:23)
--- NOTE | 2018-12-27 23:35 | PN ---
DATE: 12/27/2018 LOCATION: ICU 7. SUBJECTIVE: This is an 83-year-old male, seen and examined early in rounds, who was scheduled initially for PEG insertion today. However, the case was discussed with the patient's son who preferred to cancel the PEG for now hoping that his father will be able to tolerate oral intake post extubation. The patient appeared to be very restless, agitated on and off. The entire chart is reviewed including but not limited to the most recent lab and radiology study results, current and the previous medication list, current and the previous medical events. The patient is now on face mask safely. Today's lab results showed pancytopenia but platelet count of 157, with low hemoglobin and hematocrit, blood glucose level 130, calcium 8.1. AST 75 with albumin 2.1, total protein 5. PHYSICAL EXAMINATION: GENERAL: An 83-year-old male, somewhat restless. VITAL SIGNS: Afebrile with pulse of 76, respiratory rate 24-26 with blood pressure of 120/64. HEENT: Showed pale, dry oral mucous membrane. Nonicteric sclerae. LUNGS: Few scattered crepitation. Decreased air entry at bases. HEART: Positive S1 and S2. ABDOMEN: Soft with mild generalized tenderness. No mass or organomegaly. No rebound tenderness or guarding. EXTREMITIES: Lower extremities mild edematous changes. No clubbing or cyanosis. NEUROLOGIC: No reported new neurological deficits, sensory or motor. IMPRESSION: 1. Change of mental status with reported cerebrovascular accident by recent history. 2. Pneumonia with respiratory insufficiency, improving slightly. 3. Dysphagia. 4. Malnutrition with hypoalbuminemia. 5. Anemia secondary to chronic disease. Most likely the patient has no evidence of active bleeding from the gastrointestinal tract. 6. Known history of chronic obstructive pulmonary disease, hypertension with reported organic brain syndrome. 7. Electrolyte imbalance secondary to above. SUGGESTIONS: 1. Continue current management. 2. Correct any underlying electrolyte imbalance. 3. Blood transfusion as needed to keep hemoglobin around 10 g%. 4. Further recommendation to follow. Mu Suazo MD
--- NOTE | 2018-12-27 23:44 | CP.PCM.PN ---
Subjective - Date & Time of Evaluation Date of Evaluation: 12/27/18 Time of Evaluation: 07:00 - Subjective Subjective: seen on rounds ROS completed chart reviewed patient examined orders written antibiotics renewed Objective - Vital Signs/Intake and Output Vital Signs (last 24 hours): Temp Pulse Resp BP Pulse Ox 98.4 F 82 24 118/72 99 12/27/18 20:00 12/27/18 21:26 12/27/18 21:26 12/27/18 21:26 12/27/18 21:26 Intake and Output: 12/27/18 12/28/18 18:59 06:59 Intake Total 1342 126 Output Total 2700 Balance -1358 126 - Medications Medications: Current Medications Acetaminophen (Tylenol 325mg Tab) 650 mg PO Q6 PRN PRN Reason: Fever >100.4 F Last Admin: 12/21/18 13:51 Dose: 650 mg Acetaminophen (Tylenol 650 Mg Supp) 650 mg MI Q4 PRN PRN Reason: fEVER > 101 Last Admin: 12/25/18 01:30 Dose: 650 mg Albuterol/Ipratropium (Duoneb 3 Mg/0.5 Mg (3 Ml) Ud) 3 ml INH RQ6 [facility] Last Admin: 12/27/18 19:52 Dose: 3 ml Amiodarone HCl (Cordarone) 200 mg PO DAILY [facility] Last Admin: 12/27/18 09:41 Dose: 200 mg Apixaban (Eliquis) 2.5 mg PO BID [facility] Last Admin: 12/24/18 10:01 Dose: Not Given Dextrose (Dextrose 50% Inj) 0 ml IV STAT PRN; Protocol PRN Reason: Hypoglycemia Protocol Dextrose (Glutose 15) 0 gm PO ONCE PRN; Protocol PRN Reason: Hypoglycemia Protocol Diltiazem HCl (Cardizem) 30 mg PO TID [facility] Last Admin: 12/27/18 17:45 Dose: 30 mg Donepezil HCl (Aricept) 5 mg PO HS [facility] Last Admin: 12/27/18 21:22 Dose: 5 mg Finasteride (Proscar) 5 mg PO DAILY [facility] Last Admin: 12/27/18 09:41 Dose: 5 mg Glucagon (Glucagen Diagnostic Kit) 0 mg IM STAT PRN; Protocol PRN Reason: Hypoglycemia Protocol Dextrose (Dextrose 5% In Water 1000 Ml) 1,000 mls @ 0 mls/hr IV .Q0M PRN; Protocol PRN Reason: Hypoglycemia Protocol Meropenem 1 gm/ Sodium (Chloride) 100 mls @ 100 mls/hr IVPB Q8H [facility]; Protocol Last Admin: 12/27/18 21:22 Dose: 100 mls/hr Dextrose/Sodium Chloride (Dextrose 5%/0.9% Ns 1000 Ml) 1,000 mls @ 42 mls/hr IV .[id number] [facility] Last Admin: 12/27/18 20:43 Dose: 42 mls/hr Insulin Human Regular (Novolin R) 0 unit SC ACHS [facility]; Protocol Last Admin: 12/27/18 21:24 Dose: Not Given Latanoprost (Xalatan Opht) 0.05 ml OU HS [facility] Last Admin: 12/27/18 21:23 Dose: 0.05 ml Pantoprazole Sodium (Protonix Inj) 40 mg IVP DAILY [facility] Last Admin: 12/27/18 09:41 Dose: 40 mg Rosuvastatin Calcium (Crestor) 10 mg PO HS [facility] Last Admin: 12/27/18 21:23 Dose: 10 mg Saccharomyces Boulardii (Florastor) 250 mg PO BID [facility] Last Admin: 12/27/18 17:45 Dose: 250 mg - Labs Labs: 12/27/18 06:07 12/27/18 06:05 PT 11.3 SECONDS (9.7-12.2) 12/24/18 11:44 INR 1.0 12/24/18 11:44 APTT 35 SECONDS (21-34) H 12/24/18 11:44 - Constitutional Appears: Confused, Cachectic - Head Exam Head Exam: NORMOCEPHALIC (x) - Eye Exam Eye Exam: absent: Scleral icterus - ENT Exam ENT Exam: Mucous Membranes Dry - Neck Exam Neck Exam: absent: Lymphadenopathy - Respiratory Exam Respiratory Exam: Decreased Breath Sounds - Cardiovascular Exam Cardiovascular Exam: REGULAR RHYTHM - GI/Abdominal Exam GI & Abdominal Exam: Distended, Soft - Rectal Exam Rectal Exam: Deferred - Exam Exam: NORMAL INSPECTION - Extremities Exam Extremities Exam: Pedal Edema - Back Exam Back Exam: absent: CVA tenderness (L), CVA tenderness (R) Assessment and Plan (1) CVA (cerebral vascular accident) Status: Acute (2) Sepsis Status: Acute (3) Respiratory failure Status: Acute (4) COPD (chronic obstructive pulmonary disease) Status: Acute (5) OBS (organic brain syndrome) Status: Acute (6) HTN (hypertension) Status: Acute (7) Pneumonia Status: Acute - Assessment and Plan (Free Text) Assessment: add merrem- esbl sputum
[2018-12-28] MEDS: Albuterol-Ipratrop 3 mg / 0.5 (3 ml) UD INH SCH ×4 (01:10→20:03)
[2018-12-28] MEDS: Meropenem 1 GM in Sodium Chloride 0.9% 100 ML IVPB SCH ×3 (04:33→20:59)
[2018-12-28 05:56] LABS: BASO % 0.3 % (0.0-2.0); EOS % 1.1 % (0.0-4.0); HEMOGLOBIN 8.6 g/dL (12.0-18.0); LYMPH # 0.9 K/uL (1.0-4.3); LYMPH % 27.3 % (20.0-40.0); MEAN CELL VOLUME 86.5 fL (80.0-94.0); MEAN CORPUSCULAR HEMOGLOBIN 27.4 pg (27.0-31.0); MEAN CORPUSCULAR HGB CONC 31.6 g/dL (33.0-37.0); MEAN PLATELET VOLUME 7.8 fL (7.2-11.7); MONO # 0.5 K/uL (0.0-0.8); NEUT # 1.8 K/uL (1.8-7.0); NEUT % 56.3 % (50.0-75.0); NRBC % 0.1 % (0.0-2.0); RBC 3.13 Mil/uL (4.40-5.90); RED CELL DISTRIBUTION WIDTH 19.7 % (11.5-14.5); WHITE BLOOD COUNT 3.2 K/uL (4.8-10.8)
[2018-12-28 06:34] LABS: ALB/GLOB RATIO 0.7 (1.0-2.1); ALBUMIN 2.4 g/dL (3.5-5.0); ALT/SGPT 24 U/L (21-72); AST/SGOT 74 U/L (17-59); BLOOD UREA NITROGEN 18 mg/dL (9-20); CALCIUM 8.2 mg/dl (8.6-10.4); GFR NON-AFRICAN AMERICAN > 60
[2018-12-28] MEDS: (Novolin R) Insulin Human Regular 100 units/ml vial SC SCH ×4 (07:30→21:27)
--- NOTE | 2018-12-28 07:44 | CP.CCUPN ---
<Huey Long - Last Filed: 12/28/18 13:07> CCU Subjective - Physician Review Subjective (Free Text): ICU Progress Note for Dr. Trimble Pt seen and examined at bedside. Unable to obtain HPI or ROS due to pt's hx of dementia. S/p extubation on 12/26/18. Saturating well on NC, in no acute distress . CCU Objective - Vital Signs / Intake & Output Vital Signs (Last 4 hours): Vital Signs Temp Pulse Resp BP Pulse Ox 12/28/18 06:26 78 24 126/73 98 12/28/18 06:00 71 97 12/28/18 05:27 73 29 H 123/64 97 12/28/18 05:00 64 21 96 12/28/18 04:27 77 29 H 126/68 96 12/28/18 04:00 97.5 F L 79 24 94 L Intake and Output (Last 8hrs): Intake & Output 12/27/18 12/28/18 12/28/18 22:59 06:59 14:59 Intake Total 444 394 Output Total 1900 2200 Balance -1456 -1806 Weight 87 lb 8 oz Intake: Intake, IV Amount 394 394 rt. IJ TLC 394 394 Oral 50 Output: Urine 1900 2200 Urine, Voided 1900 2200 Other: # Bowel Movements 1 - Physical Exam Head: Positive for: Atraumatic, Normocephalic Pupils: Positive for: PERRL Conjunctiva: Positive for: Normal Mouth: Positive for: Moist Mucous Membranes Respiratory/Chest: Positive for: Rales. Negative for: Respiratory Distress, Wheezes, Rhonchi Cardiovascular: Positive for: Murmurs (systolic murmur appreciated), Normal S1, S2. Negative for: Rub, Gallop Abdomen: Positive for: Normal Bowel Sounds. Negative for: Tenderness, Distention Upper Extremity: Positive for: NORMAL PULSES, Neurovascularly Intact, Capillary Refill < 2s. Negative for: Cyanosis, Edema Lower Extremity: Positive for: Normal Inspection, NORMAL PULSES, Neurovascularly Intact, Capillary Refill < 2 s. Negative for: Edema Neurological: Positive for: Other (demented, hx CVA) Skin: Positive for: Warm, Dry Psychiatric: Positive for: Other (demented) - Medications Active Medications: Active Medications Generic Name Dose Route Start Last Admin Trade Name Freq PRN Reason Stop Dose Admin Acetaminophen 650 mg 12/16/18 07:35 12/21/18 13:51 Tylenol 325mg Tab PO 650 mg Q6 PRN Administration Fever >100.4 F Acetaminophen 650 mg 12/24/18 21:15 12/25/18 01:30 Tylenol 650 Mg Supp NE 650 mg Q4 PRN Administration fEVER > 101 Albuterol/Ipratropium 3 ml 12/25/18 14:00 12/28/18 01:10 Duoneb 3 Mg/0.5 Mg (3 Ml) Ud INH 3 ml RQ6 [facility] Administration Amiodarone HCl 200 mg 12/24/18 18:00 12/27/18 09:41 Cordarone PO 200 mg DAILY [facility] Administration Apixaban 2.5 mg 12/16/18 18:00 12/24/18 10:01 Eliquis PO Not Given BID [facility] Dextrose 0 ml 12/27/18 11:30 Dextrose 50% Inj IV STAT PRN Hypoglycemia Protocol Protocol Dextrose 0 gm 12/27/18 11:30 Glutose 15 PO ONCE PRN Hypoglycemia Protocol Protocol Diltiazem HCl 30 mg 12/21/18 14:45 12/27/18 17:45 Cardizem PO 30 mg TID [facility] Administration Donepezil HCl 5 mg 12/16/18 22:00 12/27/18 21:22 Aricept PO 5 mg HS [facility] Administration Finasteride 5 mg 12/16/18 12:00 12/27/18 09:41 Proscar PO 5 mg DAILY [facility] Administration Glucagon 0 mg 12/27/18 11:30 Glucagen Diagnostic Kit IM STAT PRN Hypoglycemia Protocol Protocol Dextrose 1,000 mls @ 0 mls/hr 12/27/18 11:30 Dextrose 5% In Water 1000 Ml IV .Q0M PRN Hypoglycemia Protocol Protocol Per Protocol Meropenem 1 gm/ Sodium 100 mls @ 100 mls/hr 12/27/18 13:00 12/28/18 04:33 Chloride IVPB 100 mls/hr Q8H [facility] Administration Protocol Dextrose/Sodium Chloride 1,000 mls @ 42 mls/hr 12/27/18 20:45 12/27/18 20:43 Dextrose 5%/0.9% Ns 1000 Ml IV 42 mls/hr .[id number] [facility] Administration Potassium Chloride 20 meq in 100 mls @ 50 mls/hr 12/28/18 07:45 Potassium Chloride 20 Meq/100 Ml IVPB 12/28/18 11:44 Q2H [facility] Insulin Human Regular 0 unit 12/27/18 11:30 12/27/18 21:24 Novolin R SC Not Given ACHS [facility] Protocol Latanoprost 0.05 ml 12/16/18 22:00 12/27/18 21:23 Xalatan Opht OU 0.05 ml HS [facility] Administration Pantoprazole Sodium 40 mg 12/23/18 12:45 12/27/18 09:41 Protonix Inj IVP 40 mg DAILY [facility] Administration Rosuvastatin Calcium 10 mg 12/16/18 22:00 12/27/18 21:23 Crestor PO 10 mg HS [facility] Administration Saccharomyces Boulardii 250 mg 12/16/18 12:00 12/27/18 17:45 Florastor PO 250 mg BID [facility] Administration - Patient Studies Lab Studies: Microbiology Studies 12/22/18 13:56 Blood Culture - Final Blood NO GROWTH AFTER 5 DAYS Gram Stain - Final TEST NOT PERFORMED 12/22/18 13:56 Blood Culture - Final Blood NO GROWTH AFTER 5 DAYS Gram Stain - Final TEST NOT PERFORMED 12/25/18 11:36 Gram Stain - Final Sputum Induced Sputum Culture - Final Escherichia Coli Lab Studies 12/28/18 12/28/18 12/27/18 Range/Units 05:51 05:50 21:09 WBC 3.2 L (4.8-10.8) K/uL RBC 3.13 L (4.40-5.90) Mil/uL Hgb 8.6 L (12.0-18.0) g/dL Hct 27.1 L (35.0-51.0) % MCV 86.5 (80.0-94.0) fL MCH 27.4 (27.0-31.0) pg MCHC 31.6 L (33.0-37.0) g/dL RDW 19.7 H (11.5-14.5) % Plt Count 183 (130-400) K/uL MPV 7.8 (7.2-11.7) fL Neut % (Auto) 56.3 (50.0-75.0) % Lymph % (Auto) 27.3 (20.0-40.0) % [place] % (Auto) 15.0 H (0.0-10.0) % Eos % (Auto) 1.1 (0.0-4.0) % Baso % (Auto) 0.3 (0.0-2.0) % Neut # (Auto) 1.8 (1.8-7.0) K/uL Lymph # (Auto) 0.9 L (1.0-4.3) K/uL [place] # (Auto) 0.5 (0.0-0.8) K/uL Eos # (Auto) 0.0 (0.0-0.7) K/uL Baso # (Auto) 0.0 (0.0-0.2) K/uL Sodium 141 (132-148) mmol/L Potassium 3.3 L (3.6-5.2) mmol/L Chloride 109 H (98-107) mmol/L Carbon Dioxide 29 (22-30) mmol/L Anion Gap 6 L (10-20) BUN 18 (9-20) mg/dL Creatinine 1.1 (0.8-1.5) mg/dL Est GFR ( Amer) > 60 Est GFR (Non-Af Amer) > 60 POC Glucose (mg/dL) 108 (65-110) mg/dL Random Glucose 81 (75-110) mg/dL Calcium 8.2 L (8.6-10.4) mg/dl Phosphorus 2.2 L (2.5-4.5) mg/dL Magnesium 2.0 (1.6-2.3) mg/dL Total Bilirubin 0.3 (0.2-1.3) mg/dL AST 74 H (17-59) U/L ALT 24 (21-72) U/L Alkaline Phosphatase 79 (38-126) U/L Total Protein 5.7 L (6.3-8.3) g/dL Albumin 2.4 L (3.5-5.0) g/dL Globulin 3.3 (2.2-3.9) gm/dL Albumin/Globulin Ratio 0.7 L (1.0-2.1) Vancomycin Trough (5.0-10.0) ug/mL 12/27/18 12/27/18 12/27/18 Range/Units 16:10 11:24 09:49 WBC (4.8-10.8) K/uL RBC (4.40-5.90) Mil/uL Hgb (12.0-18.0) g/dL Hct (35.0-51.0) % MCV (80.0-94.0) fL MCH (27.0-31.0) pg MCHC (33.0-37.0) g/dL RDW (11.5-14.5) % Plt Count (130-400) K/uL MPV (7.2-11.7) fL Neut % (Auto) (50.0-75.0) % Lymph % (Auto) (20.0-40.0) % [place] % (Auto) (0.0-10.0) % Eos % (Auto) (0.0-4.0) % Baso % (Auto) (0.0-2.0) % Neut # (Auto) (1.8-7.0) K/uL Lymph # (Auto) (1.0-4.3) K/uL [place] # (Auto) (0.0-0.8) K/uL Eos # (Auto) (0.0-0.7) K/uL Baso # (Auto) (0.0-0.2) K/uL Sodium (132-148) mmol/L Potassium (3.6-5.2) mmol/L Chloride (98-107) mmol/L Carbon Dioxide (22-30) mmol/L Anion Gap (10-20) BUN (9-20) mg/dL Creatinine (0.8-1.5) mg/dL Est GFR ( Amer) Est GFR (Non-Af Amer) POC Glucose (mg/dL) 103 130 H (65-110) mg/dL Random Glucose (75-110) mg/dL Calcium (8.6-10.4) mg/dl Phosphorus (2.5-4.5) mg/dL Magnesium (1.6-2.3) mg/dL Total Bilirubin (0.2-1.3) mg/dL AST (17-59) U/L ALT (21-72) U/L Alkaline Phosphatase (38-126) U/L Total Protein (6.3-8.3) g/dL Albumin (3.5-5.0) g/dL Globulin (2.2-3.9) gm/dL Albumin/Globulin Ratio (1.0-2.1) Vancomycin Trough 21.9 H (5.0-10.0) ug/mL Laboratory Results - last 24 hr 12/27/18 12/27/18 12/27/18 09:49 11:24 16:10 WBC RBC Hgb Hct MCV MCH MCHC RDW Plt Count MPV Neut % (Auto) Lymph % (Auto) [place] % (Auto) Eos % (Auto) Baso % (Auto) Neut # (Auto) Lymph # (Auto) [place] # (Auto) Eos # (Auto) Baso # (Auto) Sodium Potassium Chloride Carbon Dioxide Anion Gap BUN Creatinine Est GFR ( Amer) Est GFR (Non-Af Amer) POC Glucose (mg/dL) 130 H 103 Random Glucose Calcium Phosphorus Magnesium Total Bilirubin AST ALT Alkaline Phosphatase Total Protein Albumin Globulin Albumin/Globulin Ratio Vancomycin Trough 21.9 H 12/27/18 12/28/18 12/28/18 21:09 05:50 05:51 WBC 3.2 L RBC 3.13 L Hgb 8.6 L Hct 27.1 L MCV 86.5 MCH 27.4 MCHC 31.6 L RDW 19.7 H Plt Count 183 MPV 7.8 Neut % (Auto) 56.3 Lymph % (Auto) 27.3 [place] % (Auto) 15.0 H Eos % (Auto) 1.1 Baso % (Auto) 0.3 Neut # (Auto) 1.8 Lymph # (Auto) 0.9 L [place] # (Auto) 0.5 Eos # (Auto) 0.0 Baso # (Auto) 0.0 Sodium 141 Potassium 3.3 L Chloride 109 H Carbon Dioxide 29 Anion Gap 6 L BUN 18 Creatinine 1.1 Est GFR ( Amer) > 60 Est GFR (Non-Af Amer) > 60 POC Glucose (mg/dL) 108 Random Glucose 81 Calcium 8.2 L Phosphorus 2.2 L Magnesium 2.0 Total Bilirubin 0.3 AST 74 H ALT 24 Alkaline Phosphatase 79 Total Protein 5.7 L Albumin 2.4 L Globulin 3.3 Albumin/Globulin Ratio 0.7 L Vancomycin Trough Fingerstick Blood Sugar Results: 108 Review of Systems - Review of Systems Systems not reviewed;Unavailable: Dementia Critical Care Progress Note - Nutrition Nutrition: Nutrition Category Date Time Status Heart Healthy Diet [DIET] Diets 12/27/18 Breakfast Active Assessment/Plan - Assessment and Plan (Free Text) Assessment: 83 y o male PMhx severe aortic stenosis (hx family refusing further w/u on prior admission as per chart review), paroxysmal A-fib, HTN, and dementia, admitted for sepsis 2/2 to HCAP. Reason for ICU consult was for hypoxia. BASS SINGER was called on 12/22/18 on medical floor for hypoxia and O2 sat of 60% on NC. Pt was placed on non-rebreather and pulse ox was low 80s. Due to hx of severe (with no surgical intervention), pt was intubated by Anesthesia. \ Further ROS was unobtainable at that time due to pt status of respiratory distress. Pt was transferred to ICU and had R internal jugular triple lumen catheter placed. Pt was also hypertensive with BP in ICU 159/101 and tachycardic into the 120s, hypotension resolved today. Acute respiratory failure likely 2/2 to aspiration PNA. S/p extubation on 12/26/18, saturating well on NC today. Stable for downgrade from ICU to telemetry at this time. Plan: Neuro: -S/p extubation, passed speech and swallow eval -Hx dementia -C/w Aricept -Hx CVA, c/w Crestor Cardio: -Tachycardic and hypertensive on initial ICU presentation; today tachycardia r esolved, hypotension resolved -Hx aortic stenosis -Cardiology (Dr. Sanchez) consulted, recs appreciated -Hx A-fib -C/w Verapamil, Diltiazem; Eliquis on hold for acute Hgb drop Pulm: -Respiratory distress, intubated and sedated during BASS SINGER -S/p extubation 12/26, titrated down to NC, OOB to chair, cont to monitor -Recent ABG on 12/26 was 7.5//129/22.1 -Currently being treated for Sepsis 2/2 to HCAP -Abx changed to Merrem due to ESBL in sputum cx from 12/25 -ID consulted (Dr. Pastrana), recs appreciated GI: -Pureed diet with thin liquids -Peg tube placement cancelled 2/2 current pt status -Hx ?partial gastrectomy in past, unknown year as per pt's son -Protonix ID: -Urine and blood cxs NGTD -Sputum cx 12/25 positive for ESBL -Rapid flu neg -Merrem -ID on consult -Leukocytosis trending down, currently leukopenic, cont to trend Heme: -Normocytic anemia -Iron <10, TIBC 237, % sat 4.21, Folate >20, B12 526, Ferritin 55.8 -Postpone iron supplementation 2/2 iron promoting microbial growth during current infection -Stool Occult Blood negative -Eliquis on hold for low Hgb, Hgb 8.6/27.1 today Renal: -Hx BPH C/w Proscar -Trend I's/O's PPX: -Eliquis held for low Hgb, SCD -Protonix -Palliative care consulted, recs appreciated Dispo: Stable for downgrade from ICU to telemetry floor at this time. Pt seen, examined with, and plan discussed with Dr. Trimble, attending physician. Huey Long DO PGY-1, [employer] Pager #[phone] <Bobby Trimble - Last Filed: 12/28/18 17:35> CCU Subjective - Physician Review Critical Care Time Spent (in minutes): 35 CCU Objective - Vital Signs / Intake & Output Vital Signs (Last 4 hours): Vital Signs Temp Pulse Resp BP Pulse Ox 12/28/18 15:55 97.9 F 12/28/18 15:34 75 29 H 118/64 100 12/28/18 15:00 73 24 100 12/28/18 14:00 74 25 H 95 Intake and Output (Last 8hrs): Intake & Output 12/28/18 12/28/18 12/28/18 06:59 14:59 22:59 Intake Total 394 626 84 Output Total 2200 1000 Balance -1806 626 -916 Weight 87 lb 8 oz Intake: Intake, IV Amount 394 426 84 rt ij middle port 426 84 rt. IJ TLC 394 Oral 200 Output: Urine 2200 1000 Urine, Voided 2200 1000 - Medications Active Medications: Active Medications Generic Name Dose Route Start Last Admin Trade Name Freq PRN Reason Stop Dose Admin Acetaminophen 650 mg 12/16/18 07:35 12/21/18 13:51 Tylenol 325mg Tab PO 650 mg Q6 PRN Administration Fever >100.4 F Acetaminophen 650 mg 12/24/18 21:15 12/25/18 01:30 Tylenol 650 Mg Supp NE 650 mg Q4 PRN Administration fEVER > 101 Albuterol/Ipratropium 3 ml 12/25/18 14:00 12/28/18 13:19 Duoneb 3 Mg/0.5 Mg (3 Ml) Ud INH 3 ml RQ6 [facility] Administration Amiodarone HCl 200 mg 12/24/18 18:00 12/28/18 09:51 Cordarone PO 200 mg DAILY [facility] Administration Apixaban 2.5 mg 12/16/18 18:00 12/24/18 10:01 Eliquis PO Not Given BID [facility] Cyanocobalamin 1,000 mcg 12/29/18 10:00 Vitamin B12 1000 Mcg Tab PO DAILY [facility] Dextrose 0 ml 12/27/18 11:30 Dextrose 50% Inj IV STAT PRN Hypoglycemia Protocol Protocol Dextrose 0 gm 12/27/18 11:30 Glutose 15 PO ONCE PRN Hypoglycemia Protocol Protocol Diltiazem HCl 30 mg 12/21/18 14:45 12/28/18 13:31 Cardizem PO 30 mg TID [facility] Administration Donepezil HCl 5 mg 12/16/18 22:00 12/27/18 21:22 Aricept PO 5 mg HS [facility] Administration Finasteride 5 mg 12/16/18 12:00 12/28/18 09:54 Proscar PO 5 mg DAILY [facility] Administration Glucagon 0 mg 12/27/18 11:30 Glucagen Diagnostic Kit IM STAT PRN Hypoglycemia Protocol Protocol Dextrose 1,000 mls @ 0 mls/hr 12/27/18 11:30 Dextrose 5% In Water 1000 Ml IV .Q0M PRN Hypoglycemia Protocol Protocol Per Protocol Meropenem 1 gm/ Sodium 100 mls @ 100 mls/hr 12/27/18 13:00 12/28/18 13:32 Chloride IVPB 100 mls/hr Q8H [facility] Administration Protocol Dextrose/Sodium Chloride 1,000 mls @ 42 mls/hr 12/27/18 20:45 12/27/18 20:43 Dextrose 5%/0.9% Ns 1000 Ml IV 42 mls/hr .[id number] [facility] Administration Insulin Human Regular 0 unit 12/27/18 11:30 12/28/18 11:30 Novolin R SC Not Given ACHS [facility] Protocol Latanoprost 0.05 ml 12/16/18 22:00 12/27/18 21:23 Xalatan Opht OU 0.05 ml HS [facility] Administration Multivitamins/Minerals 1 tab 12/29/18 08:00 Therapeutic-M Tab PO 0800 [facility] Pantoprazole Sodium 40 mg 12/23/18 12:45 12/28/18 09:50 Protonix Inj IVP 40 mg DAILY [facility] Administration Rosuvastatin Calcium 10 mg 12/16/18 22:00 12/27/18 21:23 Crestor PO 10 mg HS [facility] Administration Saccharomyces Boulardii 250 mg 12/16/18 12:00 12/28/18 09:50 Florastor PO 250 mg BID [facility] Administration - Patient Studies Lab Studies: Microbiology Studies 12/22/18 13:56 Blood Culture - Final Blood NO GROWTH AFTER 5 DAYS Gram Stain - Final TEST NOT PERFORMED 12/22/18 13:56 Blood Culture - Final Blood NO GROWTH AFTER 5 DAYS Gram Stain - Final TEST NOT PERFORMED Lab Studies 12/28/18 12/28/18 12/28/18 Range/Units 16:10 11:16 07:30 WBC (4.8-10.8) K/uL RBC (4.40-5.90) Mil/uL Hgb (12.0-18.0) g/dL Hct (35.0-51.0) % MCV (80.0-94.0) fL MCH (27.0-31.0) pg MCHC (33.0-37.0) g/dL RDW (11.5-14.5) % Plt Count (130-400) K/uL MPV (7.2-11.7) fL Neut % (Auto) (50.0-75.0) % Lymph % (Auto) (20.0-40.0) % [place] % (Auto) (0.0-10.0) % Eos % (Auto) (0.0-4.0) % Baso % (Auto) (0.0-2.0) % Neut # (Auto) (1.8-7.0) K/uL Lymph # (Auto) (1.0-4.3) K/uL [place] # (Auto) (0.0-0.8) K/uL Eos # (Auto) (0.0-0.7) K/uL Baso # (Auto) (0.0-0.2) K/uL Sodium (132-148) mmol/L Potassium (3.6-5.2) mmol/L Chloride (98-107) mmol/L Carbon Dioxide (22-30) mmol/L Anion Gap (10-20) BUN (9-20) mg/dL Creatinine (0.8-1.5) mg/dL Est GFR ( Amer) Est GFR (Non-Af Amer) POC Glucose (mg/dL) 85 79 74 (65-110) mg/dL Random Glucose (75-110) mg/dL Calcium (8.6-10.4) mg/dl Phosphorus (2.5-4.5) mg/dL Magnesium (1.6-2.3) mg/dL Total Bilirubin (0.2-1.3) mg/dL AST (17-59) U/L ALT (21-72) U/L Alkaline Phosphatase (38-126) U/L Total Protein (6.3-8.3) g/dL Albumin (3.5-5.0) g/dL Globulin (2.2-3.9) gm/dL Albumin/Globulin Ratio (1.0-2.1) 12/28/18 12/28/18 12/27/18 Range/Units 05:51 05:50 21:09 WBC 3.2 L (4.8-10.8) K/uL RBC 3.13 L (4.40-5.90) Mil/uL Hgb 8.6 L (12.0-18.0) g/dL Hct 27.1 L (35.0-51.0) % MCV 86.5 (80.0-94.0) fL MCH 27.4 (27.0-31.0) pg MCHC 31.6 L (33.0-37.0) g/dL RDW 19.7 H (11.5-14.5) % Plt Count 183 (130-400) K/uL MPV 7.8 (7.2-11.7) fL Neut % (Auto) 56.3 (50.0-75.0) % Lymph % (Auto) 27.3 (20.0-40.0) % [place] % (Auto) 15.0 H (0.0-10.0) % Eos % (Auto) 1.1 (0.0-4.0) % Baso % (Auto) 0.3 (0.0-2.0) % Neut # (Auto) 1.8 (1.8-7.0) K/uL Lymph # (Auto) 0.9 L (1.0-4.3) K/uL [place] # (Auto) 0.5 (0.0-0.8) K/uL Eos # (Auto) 0.0 (0.0-0.7) K/uL Baso # (Auto) 0.0 (0.0-0.2) K/uL Sodium 141 (132-148) mmol/L Potassium 3.3 L (3.6-5.2) mmol/L Chloride 109 H (98-107) mmol/L Carbon Dioxide 29 (22-30) mmol/L Anion Gap 6 L (10-20) BUN 18 (9-20) mg/dL Creatinine 1.1 (0.8-1.5) mg/dL Est GFR ( Amer) > 60 Est GFR (Non-Af Amer) > 60 POC Glucose (mg/dL) 108 (65-110) mg/dL Random Glucose 81 (75-110) mg/dL Calcium 8.2 L (8.6-10.4) mg/dl Phosphorus 2.2 L (2.5-4.5) mg/dL Magnesium 2.0 (1.6-2.3) mg/dL Total Bilirubin 0.3 (0.2-1.3) mg/dL AST 74 H (17-59) U/L ALT 24 (21-72) U/L Alkaline Phosphatase 79 (38-126) U/L Total Protein 5.7 L (6.3-8.3) g/dL Albumin 2.4 L (3.5-5.0) g/dL Globulin 3.3 (2.2-3.9) gm/dL Albumin/Globulin Ratio 0.7 L (1.0-2.1) Laboratory Results - last 24 hr 12/27/18 12/28/18 12/28/18 21:09 05:50 05:51 WBC 3.2 L RBC 3.13 L Hgb 8.6 L Hct 27.1 L MCV 86.5 MCH 27.4 MCHC 31.6 L RDW 19.7 H Plt Count 183 MPV 7.8 Neut % (Auto) 56.3 Lymph % (Auto) 27.3 [place] % (Auto) 15.0 H Eos % (Auto) 1.1 Baso % (Auto) 0.3 Neut # (Auto) 1.8 Lymph # (Auto) 0.9 L [place] # (Auto) 0.5 Eos # (Auto) 0.0 Baso # (Auto) 0.0 Sodium 141 Potassium 3.3 L Chloride 109 H Carbon Dioxide 29 Anion Gap 6 L BUN 18 Creatinine 1.1 Est GFR ( Amer) > 60 Est GFR (Non-Af Amer) > 60 POC Glucose (mg/dL) 108 Random Glucose 81 Calcium 8.2 L Phosphorus 2.2 L Magnesium 2.0 Total Bilirubin 0.3 AST 74 H ALT 24 Alkaline Phosphatase 79 Total Protein 5.7 L Albumin 2.4 L Globulin 3.3 Albumin/Globulin Ratio 0.7 L 12/28/18 12/28/18 12/28/18 07:30 11:16 16:10 WBC RBC Hgb Hct MCV MCH MCHC RDW Plt Count MPV Neut % (Auto) Lymph % (Auto) [place] % (Auto) Eos % (Auto) Baso % (Auto) Neut # (Auto) Lymph # (Auto) [place] # (Auto) Eos # (Auto) Baso # (Auto) Sodium Potassium Chloride Carbon Dioxide Anion Gap BUN Creatinine Est GFR ( Amer) Est GFR (Non-Af Amer) POC Glucose (mg/dL) 74 79 85 Random Glucose Calcium Phosphorus Magnesium Total Bilirubin AST ALT Alkaline Phosphatase Total Protein Albumin Globulin Albumin/Globulin Ratio Radiology Impressions: Radiology Impressions Chest CT 12/26/18 09:00 IMPRESSION: In situ endotracheal tube in good position as above. Lungs are hyperinflated consistent with chronic manifestations of COPD. There are bilateral lower lobe consolidation changes which could represent some combination of atelectasis and or infiltrate. In addition, there are bilateral effusions left larger than right. In addition, there are increased interstitial changes and or infiltrates within the upper lobes right greater than left. Multiple small to mildly enlarged mediastinal lymph nodes as above. Chest X-Ray 12/28/18 06:00 IMPRESSION: Chronic manifestations of COPD with bibasilar atelectasis and/or infiltrates and bilateral effusions.. Interval move ETT Critical Care Progress Note - Nutrition Nutrition: Nutrition Category Date Time Status Heart Healthy Diet [DIET] Diets 12/27/18 Breakfast Active Attending/Attestation - Attestation I have personally seen and examined this patient.: Yes I have fully participated in the care of the patient.: Yes I have reviewed all pertinent clinical information: Yes Notes (Text): 12/28/18 17:35 Patient seen and examined in the intensive care unit. Extubated with copious secretions and needed frequent suctioning Transfer to telemetry Continue antibiotics
[2018-12-28] MEDS ORDERED: Potassium Phosphate 15 MMOLE in Sodium Chloride 0.9% 250 ML IVPB ONE (09:00)
[2018-12-28] MEDS: Saccharomyces Boulardi 250 mg Cap PO SCH ×2 (09:50→18:20)
--- NOTE | 2018-12-28 12:02 | CT ---
Date of service: 12/26/2018 PROCEDURE: CT chest HISTORY: Rule out pneumonia-effusion. COMPARISON: Comparison made with prior CT scan chest 10/13/2018. TECHNIQUE: Contiguous axial images were obtained through the chest without intravenous contrast enhancement. Sagittal and coronal reconstructions were performed. Radiation dose: Total exam DLP = 489.93 mGy-cm. This CT exam was performed using one or more of the following dose reduction techniques: Automated exposure control, adjustment of the mA and/or kV according to patient size, and/or use of iterative reconstruction technique. FINDINGS: In situ ETT, tip of which lies approximately 4.6 cm above nessa. Trachea is midline otherwise patent. LUNGS: Lungs are hyperinflated consistent with chronic manifestations of COPD. There are bilateral lower lobe consolidation changes which could represent some combination of atelectasis and or infiltrate. In addition, there are bilateral effusions left larger than right. In addition, there are increased interstitial changes and or infiltrates within the upper lobes right greater than left.. MEDIASTINUM: Heart is enlarged.. Persistent mild dilatation of the ascending thoracic aorta which measures approximately 3.8 cm. Descending thoracic aorta measures approximately 2.8 cm. Minor aortic atherosclerotic calcification. Pulmonary trunk measures approximately 3.0 cm. Small to mildly enlarged mediastinal lymph nodes the largest in the AP window region measuring approximately 19 mm. Small hiatal hernia. In situ right IJ central line with tip in the SVC PLEURA: No pleural fluid. No pneumothorax. BONES: No fracture. No destructive lesion. UPPER ABDOMEN: There is a punctate calcifications seen along the anterolateral cortex upper/midpole right kidney and another in the midpole collecting system. Large left renal cyst is present. OTHER FINDINGS: None. IMPRESSION: In situ endotracheal tube in good position as above. Lungs are hyperinflated consistent with chronic manifestations of COPD. There are bilateral lower lobe consolidation changes which could represent some combination of atelectasis and or infiltrate. In addition, there are bilateral effusions left larger than right. In addition, there are increased interstitial changes and or infiltrates within the upper lobes right greater than left. Multiple small to mildly enlarged mediastinal lymph nodes as above.
--- NOTE | 2018-12-28 13:21 | RAD ---
Date of service: 12/28/2018 HISTORY: eval for interval change COMPARISON: Comparison made with chest radiograph dated 12/25/2017. TECHNIQUE: 1 view obtained. FINDINGS: In situ right IJ central line with tip in the SVC. Interval removal ETT LUNGS: Chronic manifestations of COPD with bibasilar atelectasis and/or infiltrates and bilateral effusions. PLEURA: No significant pleural effusion identified, no pneumothorax apparent. CARDIOVASCULAR: Heart remains enlarged. Mild aortic aortic atherosclerotic calcification present. OSSEOUS STRUCTURES: No significant abnormalities. VISUALIZED UPPER ABDOMEN: Normal. OTHER FINDINGS: None. IMPRESSION: Chronic manifestations of COPD with bibasilar atelectasis and/or infiltrates and bilateral effusions.. Interval move ETT
--- NOTE | 2018-12-28 18:31 | PN ---
DATE: 12/28/2018 LOCATION: ICU 7. SUBJECTIVE: This is an 83-year-old man, seen early in rounds without significant clinical changes or reported active bleeding. The entire chart is reviewed including, but not limited to most recent labs and radiology study results, current and previous medication list, and current and previous medical events. Chest x-ray today, official report is seen. The patient is extubated, but still has poor oral intake. Today's lab showed white blood cells 3.2, hemoglobin 8.6, hematocrit 27.1, potassium 3.3, calcium 8.2, phosphorus 2.2, AST 74, and albumin 2.4. PHYSICAL EXAMINATION: GENERAL: An 83-year-old male. VITAL SIGNS: Afebrile with pulse of 64, respiratory rate 20-22, and blood pressure 136/70. HEENT: Showed pale dry oral mucous membrane. Nonicteric sclerae. LUNGS: Few scattered crepitation, decreased air entry at bases. HEART: Positive S1 and S2. ABDOMEN: Soft with mild generalized tenderness. No mass or organomegaly. No rebound tenderness or guarding. EXTREMITIES: Without edema, clubbing or cyanosis. IMPRESSION: 1. Poor oral intake. 2. Malnutrition with hypoalbuminemia, hypoproteinemia. 3. Change in mental status. 4. Anemia secondary to above. 5. Recent history of ____ respiratory failure. 6. 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 SUGGESTION: 1. Continue current management. 2. Peripheral hyperalimentation. 3. PEG insertion may be needed after swallow evaluation, otherwise close observation to follow. Mu Suazo MD
[2018-12-28] MEDS: Latanoprost 2.5 ml Opht Soln OU SCH (21:04)
[2018-12-28] MEDS: Dextrose 5%/0.9% NS 1,000 ML IV SCH (21:26)
[2018-12-29] MEDS: Albuterol-Ipratrop 3 mg / 0.5 (3 ml) UD INH SCH ×4 (01:24→19:32)
[2018-12-29] MEDS: Meropenem 1 GM in Sodium Chloride 0.9% 100 ML IVPB SCH ×3 (04:03→21:22)
[2018-12-29 06:32] LABS: BASO % 0.4 % (0.0-2.0); EOS % 0.8 % (0.0-4.0); HEMOGLOBIN 8.5 g/dL (12.0-18.0); LYMPH # 0.7 K/uL (1.0-4.3); LYMPH % 20.1 % (20.0-40.0); MEAN CELL VOLUME 86.1 fL (80.0-94.0); MEAN CORPUSCULAR HEMOGLOBIN 27.1 pg (27.0-31.0); MEAN CORPUSCULAR HGB CONC 31.5 g/dL (33.0-37.0); MONO # 0.4 K/uL (0.0-0.8); NEUT # 2.3 K/uL (1.8-7.0); NEUT % 66.7 % (50.0-75.0); RBC 3.12 Mil/uL (4.40-5.90); RED CELL DISTRIBUTION WIDTH 19.3 % (11.5-14.5); WHITE BLOOD COUNT 3.5 K/uL (4.8-10.8)
[2018-12-29 06:43] LABS: ALB/GLOB RATIO 0.7 (1.0-2.1); ALBUMIN 2.4 g/dL (3.5-5.0); ALT/SGPT 22 U/L (21-72); AST/SGOT 62 U/L (17-59); BLOOD UREA NITROGEN 12 mg/dL (9-20); CALCIUM 8.1 mg/dl (8.6-10.4); GFR NON-AFRICAN AMERICAN > 60
[2018-12-29] MEDS: Multivitamin With Minerals Tab PO SCH (08:19)
[2018-12-29] MEDS: (Novolin R) Insulin Human Regular 100 units/ml vial SC SCH ×4 (08:19→21:23)
--- NOTE | 2018-12-29 09:33 | CP.PCM.PN ---
Subjective - Date & Time of Evaluation Date of Evaluation: 12/29/18 Time of Evaluation: 09:32 - Subjective Subjective: Medicine Progress Note - Dr Norris's service Patient seen and examined at bedside. Per nursing no acute events overnight. Patient accepted to rehab and needs to continue IV antibiotics. Still coughing. Objective - Vital Signs/Intake and Output Vital Signs (last 24 hours): Temp Pulse Resp BP Pulse Ox 97.6 F 56 L 20 125/73 95 12/29/18 08:00 12/29/18 08:00 12/29/18 08:00 12/29/18 08:00 12/29/18 08:00 Intake and Output: 12/29/18 12/29/18 06:59 18:59 Intake Total 620 42 Output Total 1500 Balance -880 42 - Medications Medications: Current Medications Acetaminophen (Tylenol 325mg Tab) 650 mg PO Q6 PRN PRN Reason: Fever >100.4 F Last Admin: 12/21/18 13:51 Dose: 650 mg Acetaminophen (Tylenol 650 Mg Supp) 650 mg [place] Q4 PRN PRN Reason: fEVER > 101 Last Admin: 12/25/18 01:30 Dose: 650 mg Albuterol/Ipratropium (Duoneb 3 Mg/0.5 Mg (3 Ml) Ud) 3 ml INH RQ6 [facility] Last Admin: 12/29/18 08:27 Dose: Not Given Amiodarone HCl (Cordarone) 200 mg PO DAILY [facility] Last Admin: 12/28/18 09:51 Dose: 200 mg Apixaban (Eliquis) 2.5 mg PO BID [facility] Last Admin: 12/24/18 10:01 Dose: Not Given Cyanocobalamin (Vitamin B12 1000 Mcg Tab) 1,000 mcg PO DAILY [facility] Dextrose (Dextrose 50% Inj) 0 ml IV STAT PRN; Protocol PRN Reason: Hypoglycemia Protocol Dextrose (Glutose 15) 0 gm PO ONCE PRN; Protocol PRN Reason: Hypoglycemia Protocol Diltiazem HCl (Cardizem) 30 mg PO TID [facility] Last Admin: 12/28/18 18:20 Dose: 30 mg Donepezil HCl (Aricept) 5 mg PO HS [facility] Last Admin: 12/28/18 21:02 Dose: 5 mg Finasteride (Proscar) 5 mg PO DAILY [facility] Last Admin: 12/28/18 09:54 Dose: 5 mg Glucagon (Glucagen Diagnostic Kit) 0 mg IM STAT PRN; Protocol PRN Reason: Hypoglycemia Protocol Dextrose (Dextrose 5% In Water 1000 Ml) 1,000 mls @ 0 mls/hr IV .Q0M PRN; Protocol PRN Reason: Hypoglycemia Protocol Meropenem 1 gm/ Sodium (Chloride) 100 mls @ 100 mls/hr IVPB Q8H [facility]; Protocol Last Admin: 12/29/18 04:03 Dose: 100 mls/hr Dextrose/Sodium Chloride (Dextrose 5%/0.9% Ns 1000 Ml) 1,000 mls @ 42 mls/hr IV .[id number] [facility] Last Admin: 12/28/18 21:26 Dose: Not Given Insulin Human Regular (Novolin R) 0 unit SC ACHS [facility]; Protocol Last Admin: 12/29/18 08:19 Dose: Not Given Latanoprost (Xalatan Opht) 0.05 ml OU HS [facility] Last Admin: 12/28/18 21:04 Dose: 0.05 ml Multivitamins/Minerals (Therapeutic-M Tab) 1 tab PO 0800 [facility] Last Admin: 12/29/18 08:19 Dose: 1 tab Pantoprazole Sodium (Protonix Inj) 40 mg IVP DAILY [facility] Last Admin: 12/28/18 09:50 Dose: 40 mg Rosuvastatin Calcium (Crestor) 10 mg PO HS [facility] Last Admin: 12/28/18 21:02 Dose: 10 mg Saccharomyces Boulardii (Florastor) 250 mg PO BID [facility] Last Admin: 12/28/18 18:20 Dose: 250 mg - Labs Labs: 12/29/18 06:24 12/29/18 06:22 PT 11.3 SECONDS (9.7-12.2) 12/24/18 11:44 INR 1.0 12/24/18 11:44 APTT 35 SECONDS (21-34) H 12/24/18 11:44 - Additional Findings Additional findings: - Constitutional Appears: No Acute Distress, Cachectic, Chronically Ill - Head Exam Head Exam: ATRAUMATIC, NORMAL INSPECTION, NORMOCEPHALIC - Eye Exam Eye Exam: EOMI, Normal appearance, PERRL Pupil Exam: NORMAL ACCOMODATION - ENT Exam ENT Exam: Mucous Membranes Dry - Respiratory Exam Respiratory Exam: Decreased Breath Sounds, Rhonchi - Cardiovascular Exam Cardiovascular Exam: Irregular Rhythm, +S1, +S2 - GI/Abdominal Exam GI & Abdominal Exam: Soft, Normal Bowel Sounds. absent: Distended, Tenderness - Extremities Exam Extremities Exam: Normal Inspection. absent: Pedal Edema, Tenderness - Neurological Exam Neurological Exam: Alert, Awake - Psychiatric Exam Psychiatric exam: Normal Affect, Normal Mood - Skin Skin Exam: Dry, Intact, Normal Color, Warm Assessment and Plan - Assessment and Plan (Free Text) Assessment: Acute repiratory failure 2/2 pneumonia Hx of COPD -Extubated -Stable, afebrile -Saturating well on NC -Transferred out of ICU -Abx changed to Merrem due to ESBL in sputum cx from 12/25 -ID consulted (Dr. Pastrana), recs appreciated Imaging: CXR 12/28/18: Chronic manifestations of COPD with bibasilar atelectasis and/or infiltrates and bilateral effusions CT Chest 12/26/18: Lungs are hyperinflated consistent with chronic manifestations of COPD. There are bilateral lower lobe consolidation changes which could represent some combination of atelectasis and or infiltrate. In addition, there are bilateral effusions left larger than right. In addition, there are increased interstitial changes and or infiltrates within the upper lobes right greater than left. Multiple small to mildly enlarged mediastinal lymph nodes as above Dementia -C/w Aricept -Hx CVA, c/w Crestor History of Aortic Stenosis, Atrial fibrillation -Continue Verapamil, Diltiazem -Eliquis on hold for low hgb Poor PO intake Malnutrition -Peg tube placement cancelled 2/2 current pt status -Continue diet supplements -Calorie count Chronic Anemia -Stool Occult Blood negative -Eliquis on hold for low Hgb -Iron <10, TIBC 237, % sat 4.21, Folate >20, B12 526, Ferritin 55.8 BPH -C/w Proscar GI/DVT PPX: -Eliquis held for low Hgb, SCD -Protonix -Palliative care consulted, recs appreciated Plan discussed with Dr Myrna Moreno DO PGY-2
[2018-12-29] MEDS: Saccharomyces Boulardi 250 mg Cap PO SCH ×2 (10:01→18:56)
[2018-12-29] MEDS: Dextrose 5%/0.9% NS 1,000 ML IV SCH ×2 (10:45→21:36)
--- NOTE | 2018-12-29 14:46 | PN ---
DATE: 12/29/2018 LOCATION: ICU 7. SUBJECTIVE: This is an 83-year-old male, seen and examined with the ICU staff, appears to be somewhat restless and agitated, extubated, with reported slight but mildly increased oral intake, adequate so far as per the nursing staff. The entire chart is reviewed including but not limited to most recent lab and radiology study results, current and the previous medication list, current and the previous medical events. Today's lab showed white blood cell 3.5, hemoglobin 8.5, hematocrit 26.8 with normal platelet count, but subsequent drop of blood glucose level 73, calcium 8.1 and phosphorus 1.9 with AST 62, albumin 2.4, total protein 5.6. Most recently done chest x-ray report is seen indicative of COPD with bibasilar atelectasis and/or possible infiltrate with bilateral pleural effusion. PHYSICAL EXAMINATION: GENERAL: A 83-year-old male. VITAL SIGNS: Afebrile with pulse of 62, respiratory rate 20 to 22, blood pressure of 120/70. HEENT: Showed pale dry oral mucous membrane. Nonicteric sclera. LUNGS: Few scattered crepitation. Decreased air entry at bases. HEART: Positive S1 and S2. ABDOMEN: Soft with mild generalized tenderness. No mass or organomegaly. No rebound tenderness or guarding. EXTREMITIES: Without significant clubbing, cyanosis or edema. NEUROLOGIC: No reported new neurological deficits, sensory or motor. IMPRESSION: 1. Malnutrition with hypoalbuminemia, hypoproteinemia. 2. Re-exacerbation of chronic obstructive pulmonary disease with pneumonia and pleural effusion by recent history. 3. Change of mental status with possible cerebrovascular accident by recent history. 4. Period of dysphagia, slightly improving. 5. Anemia, secondary to above. 6. Known history of reported organic brain syndrome. 7. Electrolyte imbalance, most likely secondary to above. SUGGESTIONS: 1. Agree with your plan. 2. Central hyperalimentation. 3. Calorie counting. 4. Swallow evaluation. 5. No aggressive GI workup in the meantime and close observation to follow. Mu Suazo MD
[2018-12-29] MEDS: Latanoprost 2.5 ml Opht Soln OU SCH (21:24)
--- NOTE | 2018-12-29 23:02 | CP.PCM.PN ---
Subjective - Date & Time of Evaluation Date of Evaluation: 12/29/18 Time of Evaluation: 08:00 - Subjective Subjective: improved s/p extubation + ESBL sputum rx in progress Objective - Vital Signs/Intake and Output Vital Signs (last 24 hours): Temp Pulse Resp BP Pulse Ox 98.7 F 80 21 137/75 96 12/29/18 20:00 12/29/18 18:00 12/29/18 16:00 12/29/18 16:00 12/29/18 16:00 Intake and Output: 12/29/18 12/30/18 18:59 06:59 Intake Total 902 288 Output Total 900 Balance 2 288 - Medications Medications: Current Medications Acetaminophen (Tylenol 325mg Tab) 650 mg PO Q6 PRN PRN Reason: Fever >100.4 F Last Admin: 12/21/18 13:51 Dose: 650 mg Acetaminophen (Tylenol 650 Mg Supp) 650 mg [place] Q4 PRN PRN Reason: fEVER > 101 Last Admin: 12/25/18 01:30 Dose: 650 mg Albuterol/Ipratropium (Duoneb 3 Mg/0.5 Mg (3 Ml) Ud) 3 ml INH RQ6 [facility] Last Admin: 12/29/18 19:32 Dose: 3 ml Amiodarone HCl (Cordarone) 200 mg PO DAILY [facility] Last Admin: 12/29/18 10:02 Dose: 200 mg Apixaban (Eliquis) 2.5 mg PO BID [facility] Last Admin: 12/24/18 10:01 Dose: Not Given Cyanocobalamin (Vitamin B12 1000 Mcg Tab) 1,000 mcg PO DAILY [facility] Last Admin: 12/29/18 10:00 Dose: 1,000 mcg Dextrose (Dextrose 50% Inj) 0 ml IV STAT PRN; Protocol PRN Reason: Hypoglycemia Protocol Dextrose (Glutose 15) 0 gm PO ONCE PRN; Protocol PRN Reason: Hypoglycemia Protocol Diltiazem HCl (Cardizem) 30 mg PO TID [facility] Last Admin: 12/29/18 18:57 Dose: 30 mg Donepezil HCl (Aricept) 5 mg PO HS [facility] Last Admin: 12/28/18 21:02 Dose: 5 mg Finasteride (Proscar) 5 mg PO DAILY [facility] Last Admin: 12/29/18 10:01 Dose: 5 mg Glucagon (Glucagen Diagnostic Kit) 0 mg IM STAT PRN; Protocol PRN Reason: Hypoglycemia Protocol Dextrose (Dextrose 5% In Water 1000 Ml) 1,000 mls @ 0 mls/hr IV .Q0M PRN; Protocol PRN Reason: Hypoglycemia Protocol Meropenem 1 gm/ Sodium (Chloride) 100 mls @ 100 mls/hr IVPB Q8H [facility]; Protocol Last Admin: 12/29/18 21:22 Dose: 100 mls/hr Dextrose/Sodium Chloride (Dextrose 5%/0.9% Ns 1000 Ml) 1,000 mls @ 42 mls/hr IV .[id number] [facility] Last Admin: 12/29/18 21:36 Dose: Not Given Insulin Human Regular (Novolin R) 0 unit SC ACHS [facility]; Protocol Last Admin: 12/29/18 21:23 Dose: Not Given Latanoprost (Xalatan Opht) 0.05 ml OU HS [facility] Last Admin: 12/29/18 21:24 Dose: 0.05 ml Multivitamins/Minerals (Therapeutic-M Tab) 1 tab PO 0800 [facility] Last Admin: 12/29/18 08:19 Dose: 1 tab Pantoprazole Sodium (Protonix Ec Tab) 40 mg PO DAILY [facility] Rosuvastatin Calcium (Crestor) 10 mg PO HS [facility] Last Admin: 12/29/18 21:23 Dose: 10 mg Saccharomyces Boulardii (Florastor) 250 mg PO BID [facility] Last Admin: 12/29/18 18:56 Dose: 250 mg - Labs Labs: 12/29/18 06:24 12/29/18 06:22 PT 11.3 SECONDS (9.7-12.2) 12/24/18 11:44 INR 1.0 12/24/18 11:44 APTT 35 SECONDS (21-34) H 12/24/18 11:44 - Constitutional Appears: Confused, Cachectic, Chronically Ill - Head Exam Head Exam: NORMOCEPHALIC - Eye Exam Eye Exam: absent: Scleral icterus - ENT Exam ENT Exam: Mucous Membranes Dry - Neck Exam Neck Exam: absent: Lymphadenopathy - Respiratory Exam Respiratory Exam: Decreased Breath Sounds, Prolonged Expiratory Phase - Cardiovascular Exam Cardiovascular Exam: REGULAR RHYTHM, +S1, +S2 - GI/Abdominal Exam GI & Abdominal Exam: Firm, Soft Assessment and Plan (1) CVA (cerebral vascular accident) Status: Acute (2) Sepsis Status: Acute (3) Respiratory failure Status: Acute (4) COPD (chronic obstructive pulmonary disease) Status: Acute (5) OBS (organic brain syndrome) Status: Acute (6) HTN (hypertension) Status: Acute (7) Pneumonia Status: Acute - Assessment and Plan (Free Text) Assessment: cont IV Merreem for 10 days more
[2018-12-30] MEDS: Albuterol-Ipratrop 3 mg / 0.5 (3 ml) UD INH SCH ×4 (01:26→20:13)
[2018-12-30] MEDS: Meropenem 1 GM in Sodium Chloride 0.9% 100 ML IVPB SCH ×2 (04:20→15:00)
[2018-12-30 06:10] LABS: BASO % 0.8 % (0.0-2.0); EOS % 0.7 % (0.0-4.0); HEMOGLOBIN 9.5 g/dL (12.0-18.0); LYMPH % 19.6 % (20.0-40.0); MEAN CELL VOLUME 86.5 fL (80.0-94.0); MEAN CORPUSCULAR HEMOGLOBIN 26.8 pg (27.0-31.0); MEAN PLATELET VOLUME 8.3 fL (7.2-11.7); MONO # 0.7 K/uL (0.0-0.8); MONO % 14.3 % (0.0-10.0); NEUT # 3.2 K/uL (1.8-7.0); NEUT % 64.6 % (50.0-75.0); NRBC % 0.6 % (0.0-2.0); RBC 3.53 Mil/uL (4.40-5.90); RED CELL DISTRIBUTION WIDTH 19.9 % (11.5-14.5)
[2018-12-30 06:40] LABS: ALB/GLOB RATIO 0.7 (1.0-2.1); ALBUMIN 2.2 g/dL (3.5-5.0); ALT/SGPT 22 U/L (21-72); AST/SGOT 67 U/L (17-59); BLOOD UREA NITROGEN 13 mg/dL (9-20); CALCIUM 7.3 mg/dl (8.6-10.4); GFR NON-AFRICAN AMERICAN > 60
[2018-12-30] MEDS: (Novolin R) Insulin Human Regular 100 units/ml vial SC SCH ×3 (07:30→16:33)
[2018-12-30] MEDS: Multivitamin With Minerals Tab PO SCH (08:02)
[2018-12-30] MEDS: Saccharomyces Boulardi 250 mg Cap PO SCH ×2 (09:50→17:08)
[2018-12-30] MEDS ORDERED: Pantoprazole 40 mg EC Tab PO SCH (10:00)
--- NOTE | 2018-12-30 14:20 | CP.PCM.PN ---
Subjective - Date & Time of Evaluation Date of Evaluation: 12/30/18 Time of Evaluation: 14:21 - Subjective Subjective: Medicine Progress Note - Dr Herber Alexander's service Patient seen and examined at bedside. Per nursing no acute events overnight. Patient is resting comfortably, still coughing. Requiring suctioning for secretions. Objective - Vital Signs/Intake and Output Vital Signs (last 24 hours): Temp Pulse Resp BP Pulse Ox 97.8 F 78 24 125/83 75 L 12/30/18 12:00 12/30/18 12:00 12/30/18 12:00 12/30/18 12:00 12/30/18 11:49 Intake and Output: 12/30/18 12/30/18 06:59 18:59 Intake Total 882 162 Output Total 1000 Balance -118 162 - Medications Medications: Current Medications Acetaminophen (Tylenol 325mg Tab) 650 mg PO Q6 PRN PRN Reason: Fever >100.4 F Last Admin: 12/21/18 13:51 Dose: 650 mg Acetaminophen (Tylenol 650 Mg Supp) 650 mg [place] Q4 PRN PRN Reason: fEVER > 101 Last Admin: 12/25/18 01:30 Dose: 650 mg Albuterol/Ipratropium (Duoneb 3 Mg/0.5 Mg (3 Ml) Ud) 3 ml INH RQ6 [facility] Last Admin: 12/30/18 13:09 Dose: 3 ml Amiodarone HCl (Cordarone) 200 mg PO DAILY [facility] Last Admin: 12/30/18 09:54 Dose: 200 mg Apixaban (Eliquis) 2.5 mg PO BID [facility] Last Admin: 12/24/18 10:01 Dose: Not Given Cyanocobalamin (Vitamin B12 1000 Mcg Tab) 1,000 mcg PO DAILY [facility] Last Admin: 12/30/18 09:52 Dose: 1,000 mcg Dextrose (Dextrose 50% Inj) 0 ml IV STAT PRN; Protocol PRN Reason: Hypoglycemia Protocol Dextrose (Glutose 15) 0 gm PO ONCE PRN; Protocol PRN Reason: Hypoglycemia Protocol Diltiazem HCl (Cardizem) 30 mg PO TID [facility] Last Admin: 12/30/18 09:51 Dose: 30 mg Donepezil HCl (Aricept) 5 mg PO HS [facility] Last Admin: 12/29/18 23:33 Dose: 5 mg Finasteride (Proscar) 5 mg PO DAILY [facility] Last Admin: 12/30/18 09:50 Dose: 5 mg Glucagon (Glucagen Diagnostic Kit) 0 mg IM STAT PRN; Protocol PRN Reason: Hypoglycemia Protocol Dextrose (Dextrose 5% In Water 1000 Ml) 1,000 mls @ 0 mls/hr IV .Q0M PRN; Protocol PRN Reason: Hypoglycemia Protocol Meropenem 1 gm/ Sodium (Chloride) 100 mls @ 100 mls/hr IVPB Q8H [facility]; Protocol Last Admin: 12/30/18 04:20 Dose: 100 mls/hr Dextrose/Sodium Chloride (Dextrose 5%/0.9% Ns 1000 Ml) 1,000 mls @ 42 mls/hr IV .[id number] [facility] Last Admin: 12/29/18 21:36 Dose: Not Given Insulin Human Regular (Novolin R) 0 unit SC ACHS [facility]; Protocol Last Admin: 12/30/18 07:30 Dose: Not Given Latanoprost (Xalatan Opht) 0.05 ml OU HS [facility] Last Admin: 12/29/18 21:24 Dose: 0.05 ml Multivitamins/Minerals (Therapeutic-M Tab) 1 tab PO 0800 [facility] Last Admin: 12/30/18 08:02 Dose: 1 tab Pantoprazole Sodium (Protonix Ec Tab) 40 mg PO DAILY [facility] Last Admin: 12/30/18 09:51 Dose: 40 mg Rosuvastatin Calcium (Crestor) 10 mg PO HS [facility] Last Admin: 12/29/18 21:23 Dose: 10 mg Saccharomyces Boulardii (Florastor) 250 mg PO BID [facility] Last Admin: 12/30/18 09:50 Dose: 250 mg - Labs Labs: 12/30/18 06:06 12/30/18 06:06 PT 11.3 SECONDS (9.7-12.2) 12/24/18 11:44 INR 1.0 12/24/18 11:44 APTT 35 SECONDS (21-34) H 12/24/18 11:44 - Additional Findings Additional findings: - Constitutional Appears: No Acute Distress, Cachectic, Chronically Ill - Head Exam Head Exam: ATRAUMATIC, NORMAL INSPECTION, NORMOCEPHALIC - Eye Exam Eye Exam: EOMI, Normal appearance, PERRL Pupil Exam: NORMAL ACCOMODATION - ENT Exam ENT Exam: Mucous Membranes Dry - Respiratory Exam Respiratory Exam: Decreased Breath Sounds, Rhonchi - Cardiovascular Exam Cardiovascular Exam: Irregular Rhythm, +S1, +S2 - GI/Abdominal Exam GI & Abdominal Exam: Soft, Normal Bowel Sounds. absent: Distended, Tenderness - Extremities Exam Extremities Exam: Normal Inspection. absent: Pedal Edema, Tenderness - Neurological Exam Neurological Exam: Alert, Awake - Psychiatric Exam Psychiatric exam: Normal Affect, Normal Mood - Skin Skin Exam: Dry, Intact, Normal Color, Warm Assessment and Plan - Assessment and Plan (Free Text) Assessment: Acute repiratory failure 2/2 pneumonia Hx of COPD -Extubated -Stable, afebrile -Saturating well on NC -Abx changed to Merrem due to ESBL in sputum cx from 12/25 -ID consulted (Dr. Pastrana), recs appreciated Imaging: CXR 12/28/18: Chronic manifestations of COPD with bibasilar atelectasis and/or infiltrates and bilateral effusions CT Chest 12/26/18: Lungs are hyperinflated consistent with chronic manifestations of COPD. There are bilateral lower lobe consolidation changes which could represent some combination of atelectasis and or infiltrate. In addition, there are bilateral effusions left larger than right. In addition, there are increased interstitial changes and or infiltrates within the upper lobes right greater than left. Multiple small to mildly enlarged mediastinal lymph nodes as above Dementia -C/w Aricept -Hx CVA, c/w Crestor History of Aortic Stenosis, Atrial fibrillation -Continue Verapamil, Diltiazem -Eliquis on hold for low hgb Poor PO intake Malnutrition -Peg tube placement cancelled 2/2 current pt status -Continue diet supplements -Calorie count Chronic Anemia -Stool Occult Blood negative -Eliquis on hold for low Hgb -Iron <10, TIBC 237, % sat 4.21, Folate >20, B12 526, Ferritin 55.8 BPH -C/w Proscar GI/DVT PPX: -Eliquis held for low Hgb, SCD -Protonix -Palliative care consulted, recs appreciated DISPO: Patient for midline insertion tomorrow and discharge to [facility] to continue IV Merrem for 10 more days. Plan discussed with Dr Myrna Moreno DO PGY-2
[2018-12-30] MEDS: Dextrose 5%/0.9% NS 1,000 ML IV SCH (14:54)
[2018-12-30] MEDS ORDERED: Pneumococcal 23-Valent Vaccine IM ONE (16:41)
[2018-12-30] MEDS ORDERED: Influenza Vaccine 60 mcg/0.5 mL SYR (4YR UP) IM ONE (16:42)
[2018-12-30 16:56] VITALS: BP 118/73; TEMP 97.6
[2018-12-30 16:58] VITALS: RESP 26; O2SAT 94
--- NOTE | 2018-12-30 19:18 | CP.PCM.PN ---
Subjective - Date & Time of Evaluation Date of Evaluation: 12/30/18 Time of Evaluation: 09:00 - Subjective Subjective: arousable confused remains extubated in NAD Objective - Vital Signs/Intake and Output Vital Signs (last 24 hours): Temp Pulse Resp BP Pulse Ox 97.6 F 87 26 H 118/73 94 L 12/30/18 16:00 12/30/18 16:00 12/30/18 16:00 12/30/18 16:00 12/30/18 16:00 Intake and Output: 12/30/18 12/31/18 18:59 06:59 Intake Total 162 Balance 162 - Medications Medications: Current Medications Acetaminophen (Tylenol 325mg Tab) 650 mg PO Q6 PRN PRN Reason: Fever >100.4 F Last Admin: 12/21/18 13:51 Dose: 650 mg Acetaminophen (Tylenol 650 Mg Supp) 650 mg MD Q4 PRN PRN Reason: fEVER > 101 Last Admin: 12/25/18 01:30 Dose: 650 mg Albuterol/Ipratropium (Duoneb 3 Mg/0.5 Mg (3 Ml) Ud) 3 ml INH RQ6 [facility] Last Admin: 12/30/18 13:09 Dose: 3 ml Amiodarone HCl (Cordarone) 200 mg PO DAILY [facility] Last Admin: 12/30/18 09:54 Dose: 200 mg Apixaban (Eliquis) 2.5 mg PO BID [facility] Last Admin: 12/24/18 10:01 Dose: Not Given Cyanocobalamin (Vitamin B12 1000 Mcg Tab) 1,000 mcg PO DAILY [facility] Last Admin: 12/30/18 09:52 Dose: 1,000 mcg Dextrose (Dextrose 50% Inj) 0 ml IV STAT PRN; Protocol PRN Reason: Hypoglycemia Protocol Dextrose (Glutose 15) 0 gm PO ONCE PRN; Protocol PRN Reason: Hypoglycemia Protocol Diltiazem HCl (Cardizem) 30 mg PO TID [facility] Last Admin: 12/30/18 17:08 Dose: 30 mg Donepezil HCl (Aricept) 5 mg PO HS [facility] Last Admin: 12/29/18 23:33 Dose: 5 mg Finasteride (Proscar) 5 mg PO DAILY [facility] Last Admin: 12/30/18 09:50 Dose: 5 mg Glucagon (Glucagen Diagnostic Kit) 0 mg IM STAT PRN; Protocol PRN Reason: Hypoglycemia Protocol Dextrose (Dextrose 5% In Water 1000 Ml) 1,000 mls @ 0 mls/hr IV .Q0M PRN; Protocol PRN Reason: Hypoglycemia Protocol Meropenem 1 gm/ Sodium (Chloride) 100 mls @ 100 mls/hr IVPB Q8H [facility]; Protocol Last Admin: 12/30/18 15:00 Dose: 100 mls/hr Dextrose/Sodium Chloride (Dextrose 5%/0.9% Ns 1000 Ml) 1,000 mls @ 42 mls/hr IV .[id number] [facility] Last Admin: 12/30/18 14:54 Dose: 42 mls/hr Insulin Human Regular (Novolin R) 0 unit SC ACHS [facility]; Protocol Last Admin: 12/30/18 16:33 Dose: Not Given Latanoprost (Xalatan Opht) 0.05 ml OU HS [facility] Last Admin: 12/29/18 21:24 Dose: 0.05 ml Multivitamins/Minerals (Therapeutic-M Tab) 1 tab PO 0800 [facility] Last Admin: 12/30/18 08:02 Dose: 1 tab Pantoprazole Sodium (Protonix Ec Tab) 40 mg PO DAILY [facility] Last Admin: 12/30/18 09:51 Dose: 40 mg Rosuvastatin Calcium (Crestor) 10 mg PO HS [facility] Last Admin: 12/29/18 21:23 Dose: 10 mg Saccharomyces Boulardii (Florastor) 250 mg PO BID [facility] Last Admin: 12/30/18 17:08 Dose: 250 mg - Labs Labs: 12/30/18 06:06 12/30/18 06:06 PT 11.3 SECONDS (9.7-12.2) 12/24/18 11:44 INR 1.0 12/24/18 11:44 APTT 35 SECONDS (21-34) H 12/24/18 11:44 - Constitutional Appears: No Acute Distress, Confused, Cachectic, Chronically Ill - Head Exam Head Exam: NORMOCEPHALIC - Eye Exam Eye Exam: absent: Scleral icterus - ENT Exam ENT Exam: Mucous Membranes Dry - Neck Exam Neck Exam: absent: Lymphadenopathy - Respiratory Exam Respiratory Exam: Decreased Breath Sounds, Prolonged Expiratory Phase, Rhonchi - Cardiovascular Exam Cardiovascular Exam: REGULAR RHYTHM - GI/Abdominal Exam GI & Abdominal Exam: Distended, Soft. absent: Tenderness - Rectal Exam Rectal Exam: Deferred - Exam Exam: NORMAL INSPECTION - Extremities Exam Extremities Exam: absent: Pedal Edema - Back Exam Back Exam: absent: NORMAL INSPECTION, paraspinal tenderness - Neurological Exam Neurological Exam: Altered Assessment and Plan (1) CVA (cerebral vascular accident) Status: Acute (2) Sepsis Status: Acute (3) Respiratory failure Status: Acute (4) COPD (chronic obstructive pulmonary disease) Status: Acute (5) OBS (organic brain syndrome) Status: Acute (6) HTN (hypertension) Status: Acute (7) Pneumonia Status: Acute - Assessment and Plan (Free Text) Assessment: cont IV Merrem for MDRO sputum
[2018-12-30 19:50] VITALS: PULSE 81
--- NOTE | 2018-12-30 20:03 | PN ---
DATE: 12/30/2018 LOCATION: ICU 7. HISTORY OF PRESENT ILLNESS: This is a an 83-year-old male, seen and examined in the intensive care unit post insertion of midline. The patient has no significant clinical changes with, in general, less oral intake. The entire chart is reviewed including but not limited to the most recent lab and radiology study results, current and the previous medication list and today's lab showed normal white blood cells, hemoglobin 9.5, hematocrit 30.5 with low indices with creatinine 0.7, calcium 7.3, phosphorus 1.3, AST 67 with albumin 2.2 with low total protein of 5.5. The patient is still agitated, restless, not responding adequately to any verbal stimuli even with his own mother tongue language. PHYSICAL EXAMINATION: GENERAL: An 83-year-old male, afebrile. Pulse of 76, respiratory rate 20-24 with blood pressure of 130/80. HEENT: Showed pale dry oral mucous membrane. Nonicteric sclerae. LUNGS: Few scattered crepitation. Decreased air entry at bases. HEART: Positive S1 and S2. ABDOMEN: Soft with mild generalized tenderness. No mass or organomegaly. No rebound tenderness or guarding. EXTREMITIES: Without significant edema, clubbing or cyanosis. NEUROLOGIC: No reported new neurological deficits, sensory or motor. The patient still has intermittent periods of some productive cough during the physical examination. IMPRESSION: 1. Anemia; rule out upper versus lower gastrointestinal blood loss versus anemia secondary to chronic disease. 2. Re-exacerbation of chronic obstructive pulmonary disease with acute bronchitis by recent history with possible pneumonia and bilateral pleural effusion. 3. Known history of benign prostatic hypertrophy, hypertension with reported dementia by history. 4. Malnutrition with hypoalbuminemia, hypoproteinemia with inadequate oral intake which is slightly improved but not completely. 5. Electrolyte imbalance, most likely secondary to above. 6. Known history of organic brain syndrome as per record. SUGGESTIONS: 1. Continue current management. 2. Peripheral hyperalimentation. 3. No official agreeable report from the family regarding that the patient's PEG insertion. 4. We will follow up closely with you. Mu Suazo MD [facility] # [id number]
--- NOTE | 2018-12-31 08:49 | PN ---
DATE: 12/24/2018 SUBJECTIVE: The patient is in ventilator. PHYSICAL EXAMINATION: VITAL SIGNS: Blood pressure is . antibiotic. Brian Norris MD
--- NOTE | 2019-01-05 22:03 | DS ---
Mr. Ambrose was admitted to the hospital with chief complaint of altered mental status, weakness, fatigue, shortness of breath. The patient was found to have pneumonia and started on IV antibiotics. Transferred to ICU for worsening symptoms, sepsis, intubation, IV antibiotics. DIAGNOSES: 1. Sepsis. 2. Healthcare-acquired pneumonia. 3. Dementia. Brian Norris MD
== END 2018-12-30 20:53 | DRG 871 ==
LOC: C.ER 02:46 → C.5S 05:03 → C.9I 12-22 15:50
PROVIDERS: ADMIT Internal Medicine Pulmonary Disease; ATTEND Internal Medicine Pulmonary Disease
PROC: 0BH17EZ Insertion of Endotracheal Airway into Trachea, Via Natural or Artificial Opening (ICD-10-PCS; principal; 2018-12-22)
PROC: 5A1945Z Respiratory Ventilation, 24-96 Consecutive Hours (ICD-10-PCS; 2018-12-22)
PROC: 05HM33Z Insertion of Infusion Device into Right Internal Jugular Vein, Percutaneous Approach (ICD-10-PCS; 2018-12-30)
PROC: B543ZZA Ultrasonography of Right Jugular Veins, Guidance (ICD-10-PCS; 2018-12-30)
DX: A41.9 Sepsis, unspecified organism (principal); J69.0 Pneumonitis due to inhalation of food and vomit; J96.01 Acute respiratory failure with hypoxia; E46 Unspecified protein-calorie malnutrition; J44.0 Chronic obstructive pulmonary disease with (acute) lower respiratory infection; J44.1 Chronic obstructive pulmonary disease with (acute) exacerbation; Z99.11 Dependence on respirator [ventilator] status; D61.818 Other pancytopenia; J91.8 Pleural effusion in other conditions classified elsewhere; D50.9 Iron deficiency anemia, unspecified; E86.0 Dehydration; E87.6 Hypokalemia; I10 Essential (primary) hypertension; I35.0 Nonrheumatic aortic (valve) stenosis; I48.0 Paroxysmal atrial fibrillation; N40.0 Benign prostatic hyperplasia without lower urinary tract symptoms; J20.9 Acute bronchitis, unspecified; F03.90 Unspecified dementia, unspecified severity, without behavioral disturbance, psychotic disturbance, mood disturbance, and anxiety; R13.10 Dysphagia, unspecified; Z86.73 Personal history of transient ischemic attack (TIA), and cerebral infarction without residual deficits